=== PATIENT | female | born 1945 | race African-American/Black ===

== ENCOUNTER 2023-01-17 17:40 | Inpatient (IN) | payer OTHER ==
--- OUTSIDE RECORDS SUMMARY | 2023-01-17 18:01 | XMS REPORT | Continuity of Care Document ---
:1945 Author Organization [facility] t Address [address] [facility] [address] [place] [address] Care Team Providers Name Role Phone REY RASHEED Primary Care Physician Unavailable [id number] Attending Clinician Unavailable SYSTEM, PROVIDER NOT IN Attending Clinician Unavailable TWYLA SMITH Attending Clinician Unavailable CLARKE RENDON Attending Clinician Unavailable EDDIE GREGORIO Attending Clinician Unavailable HILL TAY Attending Clinician Unavailable JUNE VILLALBA Attending Clinician Unavailable MARCEL DAMIAN KEVIN Attending Clinician Unavailable LYNN WARD Attending Clinician Unavailable June Villalba MD Attending Clinician BERKLEY ARECHIGA Attending Clinician Unavailable KATTY OLIVEIRA Attending Clinician Unavailable LETTY GARNER Attending Clinician Unavailable ABDIAS MAHONEY Attending Clinician Unavailable MAZIN IQBAL Attending Clinician Unavailable BARRERA GARCIAS Attending Clinician Unavailable NANDO SCHROEDER Attending Clinician Unavailable LYNNETTE, LUZMARIA Attending Clinician Unavailable LEEANNE VENEGAS Attending Clinician Unavailable Lorena Timmons APRN Attending Clinician Van ENCARNACION, Silvia Attending Clinician Unavailable Shaikh DEMETRIA, Lester Attending Clinician Luisito AUGUSTIN, Matt Attending Clinician Sindi AUGUSTIN, Benitez Corona Attending Clinician [phone] Irish Araiza MD, Shailesh Attending Clinician Esmer AUGUSTIN, Ann Martinez Attending Clinician [phone] Roro Lambert RN Attending Clinician Unavailable Bobby AUGUSTIN, Marcel Ayers Attending Clinician Guerita AUGUSTIN, Sari Attending Clinician Dominick AUGUSTIN, Negin Sargent Attending Clinician Selam Putnam DO Attending Clinician Arturo Ladd Attending Clinician Stu AUGUSTIN, Maria Luisa Pyle Attending Clinician Jacquelyn [facility], Valentino Attending Clinician Unavailable Mimi AUGUSTIN, Fab Attending Clinician Severo AUGUSTIN, Marlen Attending Clinician [phone] Gbao Guzman MD, Khadra Attending Clinician [phone] Mirta Lomas MD Attending Clinician Jovi AUGUSTIN, Niko Hernandez Attending Clinician Clarissa Attending Clinician Unavailable SELAM ROPER Attending Clinician Unavailable JAKE SOLOMON Attending Clinician Unavailable HOLLY RHODES Attending Clinician Unavailable Shante AUGUSTIN, Rhean Frances Attending Clinician Maribeth Lopez MA Attending Clinician Unavailable MELODY LR Attending Clinician Unavailable Elias Castro MD Attending Clinician Sid Villanueva MD Attending Clinician MARAL MASON Attending Clinician Unavailable Isabella AUGUSTIN, Maral Attending Clinician Ariana Hankins Attending Clinician Unavailable ANKUR MCDANIEL Attending Clinician Unavailable MAHSA CHEEK Attending Clinician Unavailable MIKAELA POZO Attending Clinician Unavailable RAMAKRISHNA VELIZ Attending Clinician Unavailable SPRING ALVARADO Attending Clinician Unavailable Zoë AUGUSTIN, Fernanda Mendez Attending Clinician [phone] FERNANDA CAMP Attending Clinician Unavailable Harika Torres MD Attending Clinician Mateo Riley MD Attending Clinician Mayte Kumar MD Attending Clinician MAYTE KUMAR Attending Clinician Unavailable Hill Tay MD Attending Clinician Virtual, Surgeon Attending Clinician Unavailable Halle Roberts CRNA Attending Clinician [phone] Neymar Diaz RN Attending Clinician Unavailable NITO WRIGHT Attending Clinician Unavailable MATEO CENTENO Attending Clinician Unavailable Concha Attending Clinician Unavailable TODD RUSSELL Attending Clinician Unavailable KATHIE CORRIGAN Attending Clinician Unavailable BISHOP MOORE Attending Clinician Unavailable GEORGE LAM Attending Clinician Unavailable LIA MENCHACA Attending Clinician Unavailable RIVKA MARTINEZ Attending Clinician Unavailable DEREK MILLER Attending Clinician Unavailable MD LIA MENCHACA Attending Clinician Unavailable REY RASHEED Attending Clinician Unavailable SHEA MUJICA M.D. Attending Clinician Unavailable SELAM KUHN M.D. Attending Clinician Unavailable MARCO ANTONIO BROWNING M.D. Attending Clinician Unavailable MATEO CENTENO Attending Clinician Unavailable DAVID CLARK D.O. Attending Clinician Unavailable BRONSON MUNIZ M.D. Attending Clinician Unavailable ALONZO TURNER Attending Clinician Unavailable [id number] Admitting Clinician Unavailable CLARKE RENDON Admitting Clinician Unavailable HILL TAY Admitting Clinician Unavailable JUNE VILLALBA Admitting Clinician Unavailable MARCEL DAMIAN KEVIN Admitting Clinician Unavailable ALISON VARGAS Admitting Clinician Unavailable ELAINE EDWARD Admitting Clinician Unavailable BENITEZ HORVATH Admitting Clinician Unavailable MD MATT JORGE Admitting Clinician Unavailable ARTURO LADD Admitting Clinician Unavailable MD SARI DEXTER Admitting Clinician Unavailable SHAILESH ARAIZA Admitting Clinician Unavailable Clarissa Admitting Clinician Unavailable HOLLY RHODES Admitting Clinician Unavailable MARAL MASON Admitting Clinician Unavailable RAMAKRISHNA VELIZ Admitting Clinician Unavailable MAYTE KUMAR Admitting Clinician Unavailable Concha Admitting Clinician Unavailable BISHOP MOORE Admitting Clinician Unavailable LIA MENCHACA Admitting Clinician Unavailable MD LIA MENCHACA Admitting Clinician Unavailable MATEO CENTENO Admitting Clinician Unavailable ALONZO TURNER Admitting Clinician Unavailable Payers Payer Name Policy Type Policy Number Effective Date Expiration Date S ource [facility] [id number] [facility]IC[facility] [id number] 2020 ADVANTAGE 00:00:00 HUMANA CHOICE [id number] 2017 2020 MEDICARE PPO 00:00:00 00:00:00 MEDICARE PART B [id number] 2009 2017 00:00:00 00:00:00 AETNA [facility] [id number] 2010 2017 00:00:00 00:00:00 UNITED MEDICARE [id number] 2020 O 00:00:00 [facility] [id number] (MEDICARE REPLACEMENT/ADVANT AGE - PPO) MEDICARE PART B [id number] 2009 2010 00:00:00 00:00:00 AETNA O POS QPOS [id number] 2001 2017 00:00:00 00:00:00 Problems Condition Condition Condition Status Onset Resolution Last Treating Co mments Source Name Details Category Date Date Treatment Clinician Date Encephalop Encephalop Disease Active M ethodi athy acute athy acute 4-03 st 00:00: Hospita 00 l T84.092A T84.092A Diagnosis Active 2022-09-06 Memoria Active 09-02 13:19:00 l 09/02/2022 00:00: Manny ng [place] Localized Localized Disease Active 2021-06 Met hodi swelling, swelling, 0-25 st mass, or mass, or 00:00: Hospit a lump of lump of 00 l lower lower extremity, extremity, bilateral bilateral Cellulitis Cellulitis Disease Active 2021-06 M ethodi of right of right 0-24 st foot foot 00:00: Hospita 00 l Pulmonary Pulmonary Disease Active Met hodi embolism embolism 03-02 st 00:00: Hospita 00 l Weakness Weakness Disease Active Metho di 03-02 st 00:00: Hospita 00 l Congestive Congestive Disease Active M ethodi heart heart 9 st failure failure 00:00: Hospita (CHF) (CHF) 00 l Lung Lung Disease Active Methodi cancer cancer 03-02 st 00:00: Hospita 00 l Pulmonary Pulmonary Disease Active Met hodi embolism embolism 02-25 st on right on right 00:00: Hospit a 00 l RIGHT HIP RIGHT HIP Diagnosis Active 2021-12-21 Memoria PAIN PAIN 18 17:13:00 l Active 00:00: Samuel 12/21/2021 00 [facility] 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 08-25 [facility] Center Other Other Disease Active Methodi chronic chronic 3- st pain pain 00:00: Hospita 00 l Generalize Generalize Disease Active [facility] d pain d pain 06-14 [facility] 00 [place] Bronchogen Bronchogen Disease Recurre [facility] ic cancer ic cancer nce 1 [facility] of right of right 00:00: Medica l lung lung 00 Center M20.42 M20.42 Diagnosis Active 2020-062021-04-22 Me moria OTHER OTHER 04 05:48:00 l HAMMER HAMMER 00:00: Samuel TOE(S) TOE(S) 00 (ACQUIRED) (ACQUIRED) , L , L Active 04/09/2021 [facility] PT PT Active Diagnosis Active 2021-01-22 Memoria 08/04/202008-04 16:03:00 l [facility] 08:00: Samuel Rosales 00 Trace . 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 00:00: Hospita myelopathy myelopathy 00 l LUMBAR LUMBAR Diagnosis Active 2020-06-12 Me moria Active 06-06 10:22:00 l 06/06/2019 08:00: Manny ng [facility] [address] Vitamin D Vitamin D Disease Active 2017-06 Met hodi deficiency deficiency 06-14 st 00:00: Hospita 00 l Magnesium Magnesium Disease Active 2017-06 Met hodi deficiency deficiency 06-14 st 00:00: Hospita 00 l B12 B12 Disease Active 2017-06 Methodi deficiency deficiency 09 st 00:00: Hospita 00 l BILATERAL BILATERAL Diagnosis Active 2017-062021-05-06 Memoria LEG PAIN LEG PAIN 06-06 14:47:00 l Active 08:00: Samuel 04/06/2018 00 [facility] Acute Acute Disease Active 2017-06 Methodi bursitis bursitis 0-09 st of left of left 00:00: Hospita shoulder shoulder 00 l Prolonged Prolonged Disease Active 2017-06 Met hodi Q-T Q-T 0-08 st interval interval 00:00: Hospit a on ECG on ECG 00 l 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 11 st left left 00:00: Hospita shoulder shoulder 00 l due to due to rotator rotator cuff cuff injury injury Therapeuti Therapeuti Disease Active M ethodi c c 9-11 st opioid-ind opioid-ind 00:00: Ho spita uced uced 00 l constipati constipati on (OIC) on (OIC) CERVICAL CERVICAL Diagnosis Active 2018-02-20 Memoria FACET FACET 02-08 12:16:00 l SYNDROME SYNDROME 00:00: Manny ng Active 00 02/08/2018 [facility] Neuropathi Neuropathi Disease Active M ethodi c pain c pain 16 st 00:00: Hospita 00 l 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 00:00: Ho spita 00 l S/P total S/P total Disease Recurre Hi thodi knee knee nce [address] st replacemen replacemen 00:00: Ho spita t, right t, right 00 l 08/25/17 08/25/17 600 UNITS 600 UNITS Diagnosis Active 2017-12-26 Memoria Active 10-05 15:13:00 l 10/05/2017 00:00: Manny CHATMAN [facility] 00 BOTOX INJ BOTOX INJ Diagnosis Active 2016-062017-10-05 Memoria Active 07-12 09:16:00 l 05/11/2017 00:00: Manny CHATMAN [facility] 00 Trifacial Trifacial Disease Active 2016-[address] neuralgia neuralgia 0-31 [facility] Center 40MG 40MG Diagnosis Active 2016-062017-03-10 Mem oria Active 16:07:00 l 03/08/2017 00:00: Manny CHATMAN [facility] 00 500 UNITS 500 UNITS Diagnosis Active 2017-05-11 Memoria Active 02-09 10:14:00 l 02/09/2017 00:00: Manny CHATMAN [facility] 00 2 MONTH 2 MONTH Diagnosis Active 2017-05-21 Memoria F/U F/U Active 02-09 16:11:00 l 00:00: Manny Ellis [facility] 00 3 WEEK F/U 3 WEEK Diagnosis Active 2017-01-26 Memoria F/U Active 01-05 16:29:00 l 01/05/2017 00:00: Manny ng [facility] 00 PAIN / PER PAIN / Diagnosis Active 2017-01-05 Memoria EMAIL FROM PER EMAIL 12-30 11:40:00 l DAVID FROM DAVID 00:00: Manny ng Active 00 12/30/2016 MH [facility] 4 WEEK F/U 4 WEEK Diagnosis Active 2017-02-14 Memoria F/U Active 12-30 16:19:00 l 00:00: Manny ng 7 [facility] 00 6 WEEKS FU 6 WEEKS Diagnosis Active 2016-12-15 Memoria FU Active 11-19 16:11:00 l 11/19/2016 00:00: Manny ng [facility] 00 400 UNITS 400 UNITS Diagnosis Active 2017-02-09 Memoria Active 10-28 10:29:00 l 10/28/2016 00:00: Manny ng [facility] 00 2 WEEK F.U 2 WEEK Diagnosis Active 2016-11-10 Memoria F.U Active 10-23 09:17:00 l 10/23/2016 00:00: Manny ng [facility] 00 10ML 10ML Diagnosis Active 2016-10-20 Mem oria Active 10-18 16:20:00 l 10/18/2016 00:00: Manny ng [facility] 00 2 MONTHS 2 MONTHS Diagnosis Active 2016-09-15 Memoria Active 07-29 13:55:00 l 07/29/2016 00:00: Manny ng [facility] 00 F/U F/U Diagnosis Active 2016-07-29 Mem oria Active 07-01 14:33:00 l 07/01/2016 00:00: Manny ng [facility] 00 EVAL EVAL Diagnosis Active 2016-04-03 Mem oria Active 02-25 16:30:00 l 02/26/2016 00:00: Manny ng [facility] 00 200 UNITS 200 UNITS Diagnosis Active 2016-03-03 Memoria Active 12-02 13:09:00 l 12/03/2015 00:00: Manny ng [facility] 00 NEW PT NEW PT Diagnosis Active 2015-10-05 Me irma DAVIS 08-26 16:36:00 l Active 00:00: Samuel 08/27/2015 00 [facility] Atrophic Atrophic Disease Active Metho di vaginitis vaginitis 08-08 00:00: Hospita 00 l History of History of Disease Active M ethodi malignant malignant 08-08 neoplasm neoplasm 00:00: Hospit a of breast of breast 00 l History of History of Disease Active M ethodi ovarian ovarian 08-08 cancer cancer 00:00: Hospita 00 l Chronic Chronic Disease Active Methodi pain of pain of 08-08 right knee right knee 00:00: Ho spita 00 l MS MS Disease Active Overview: Method i (multiple (multiple 08-08 Formattin s t sclerosis) sclerosis) 00:00: g of this Hospita 00 note l might be different from the original. 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 08-08 disorders, disorders, 00:00: Ho spita non-rheuma non-rheuma 00 l tic tic Urge Urge Disease Active Methodi incontinen incontinen 08-08 ce of ce of 00:00: Hospita urine urine 00 l Allergic Allergic Disease Active Metho di rhinitis rhinitis 08-08 00:00: Hospita 00 l 300 UNITS 300 UNITS Diagnosis Active 2015-09-21 Memoria Active 06-17 16:26:00 l 06/17/2015 00:00: Manny ng [facility] 00 BOTOX/NO BOTOX/NO Diagnosis Active 2014-11-06 Memoria ORDER ORDER 08-07 14:24:00 l WRITTEN WRITTEN 00:00: Samuel Active 00 08/07/2014 [facility] BOTOX BOTOX Diagnosis Active 2013-062014-09-19 Mem oria Active 07-10 20:22:00 l 05/09/2014 00:00: Manny ng [facility] 00 STRENGTH STRENGTH Diagnosis Active 2016-12-28 Memoria UNLIMTED UNLIMTED 06-06 16:08:00 l Active 08:00: [place] 06/06/2009 00 MH [facility] EVAL FOR EVAL FOR Diagnosis Active 2016-08-12 Memoria THERAPY THERAPY 02-17 02:17:00 l NEEDS- MS NEEDS- MS 01:01: Alva granados W FOOT W FOOT 00 DROP DROP Active 02/17/2006 MH [facility] MS MS Active Diagnosis Active 2013-08-03 Memoria 06-06 09:55:00 l 1 MH [facility] 23:59: [place] 00 MULTIPLE MULTIPLE Diagnosis Active 2012-07-18 Memoria SCLEROSIS SCLEROSIS 06-06 15:22:00 l Active 23:59: Samuel 06/06/2000 00 MH [facility] STRENGTH STRENGTH Diagnosis Active 2018-05-02 Memoria UNLIMITED UNLIMITED 06-06 11:06:00 l Active 08:00: Samuel 06/06/2000 00 MH [facility] Primary Primary Problem Active [place] osteoarthr osteoarthr Ph ysici itis of itis of ans right knee right knee History of History of Problem Resolve [place] Arthritis Arthritis d Phys ici ans History of History of Problem Resolve [place] Cancer Cancer d Physici ans Pain due Pain due Problem Active [place] to total to total Physic i right knee right knee an s replacemen replacemen t, initial t, initial encounter encounter Foot Foot Problem Active 2021-12-24 Memor ia swelling swelling 00:08:07 l (finding) (finding) Alva turner Active Problem 12/24/2021 [facility], [facility], CLAUDE Cerrato,[facility] History of History Problem Active 2021-12-24 Memoria - of - 00:08:07 l artificial artificial He rmann joint joint (context-d (context-d ependent ependent category) category) Active Problem 12/24/2021 [facility], CLAUDE Cerrato,[facility] Hammer toe Hammer Problem Active 2021-12-24 Memoria (disorder) toe 00:08:07 l (disorder) Manny n Active Problem 12/24/2021 [facility] Shoulder Shoulder Problem Active 2021-12-24 Memoria pain pain 00:08:07 l (finding) (finding) Herm turner Active Problem 12/24/2021 [facility], SMR Bobby Trace,[facility] Spasm Spasm Problem Active 2021-12-24 Memor ia (finding) (finding) 00:08:07 l Active Samuel Problem 12/24/2021 [facility],MH [facility],MH SMR Bobby Trace,[facility] Spasticity Spasticit Problem Active 2021-12-24 Memoria (finding) y 00:08:07 l (finding) [place] Active Problem 12/24/2021 [facility], SMR Bobby Trace,[facility] Swelling Swelling Problem Active 2021-12-24 Memoria of lower of lower 00:08:07 l limb limb [place] (finding) (finding) Active Problem 12/24/2021 [facility], SMR Bobby Trace,[facility] Tachycardi Tachycard Problem Active 2021-12-24 Memoria a ia 00:08:07 l (finding) (finding) Herm turner Active Problem 12/24/2021 [facility] MS - MS - Problem Active 2013-01-12 Memor ia Multiple Multiple 20:36:14 l sclerosis sclerosis Herm turner Active Problem 01/12/2013 [facility] Sclerosis Problem Active 2016-03-21 Me moria (morpholog Sclerosis 00:40:21 l ic (morpholog Manny n abnormalit ic y) abnormalit y) Active Problem 03/21/2016 multiple sclerosis [facility] [place] CHRONIC CHRONIC Diagnosis Active 2014-09-03 Memoria PAIN NEC PAIN NEC 11:03:00 l Active Samuel [facility] MULTIPLE MULTIPLE Diagnosis Active 2012-10-16 Memoria SCLEROSIS SCLEROSIS 19:11:00 l Active Manny n [facility] SPASM OF SPASM OF Diagnosis Active 2015-02-05 Memoria MUSCLE MUSCLE 14:37:00 l Active Samuel [facility] ABN ABN Diagnosis Active 2015-02-05 Mem oria INVOLUN INVOLUN 14:37:00 l MOVEMENT MOVEMENT Manny n NEC NEC Active [facility] NECK / NECK / Diagnosis Active 2014-03-07 Me moria SHOULDER SHOULDER 07:07:00 l PAIN PAIN [place] Active [facility] [place] OTHER OTHER Diagnosis Active 2017-05-21 Mem oria MUSCLE MUSCLE 16:11:00 l SPASM SPASM Samuel Active [facility] OTHER OTHER Diagnosis Active 2017-02-09 Mem oria ABNORMAL ABNORMAL 10:29:00 l INVOLUNTAR INVOLUNTAR He rmann Y Y MOVEMENTS MOVEMENTS Active MH [facility] ENCNTR FOR ENCNTR Diagnosis Active 2015-06-17 Memoria F/U EXAM FOR F/U 14:57:00 l AFT TRTMT EXAM AFT Jodi nn FOR COND O TRTMT FOR COND O Active MH [facility] CRAMP AND CRAMP AND Diagnosis Active 2016-10-28 Memoria SPASM SPASM 14:52:00 l Active MH Manny n [facility] OTHER OTHER Diagnosis Active 2017-02-14 Mem oria CHRONIC CHRONIC 16:19:00 l PAIN PAIN [place] Active [facility] Pain in Pain in Problem 2017-03-13 Me moria left left 03:34:46 l shoulder shoulder Manny n 03/13/2017 MH [facility] Other Other Problem 2017-10-14 Memor ia muscle muscle 16:10:39 l spasm spasm [place] 10/14/2017 MH [facility] Multiple Multiple Problem 2017-10-14 Memoria sclerosis sclerosis 16:10:39 l 10/14/2017 Manny n MH [facility] Body mass Body Problem 2017-10-14 Me moria index mass index 16:10:39 l (BMI) (BMI) Samuel 21.0-21.9, 21.0-21.9, adult adult 10/14/2017 MH [facility] Presence Presence Problem 2017-10-14 Memoria of right of right 16:10:39 l artificial artificial He rmann knee joint knee joint 8 MH [facility] Cancer Cancer Problem Resolve 2013-01-12 Mem oria Resolved d 20:36:14 l Problem [place] 01/12/2013 <sup>1</s up>Breast, ovarian MH [facility] Sclerosis Sclerosis Problem Resolve 2013-01-12 Memoria Resolved d 20:36:14 l Problem Samuel 01/12/2013 <sup>2</alvarado p>multiple sclerosis MH [facility] Weakness - Weakness Problem Resolve 2013-01-12 Memoria general - general d 20:36:14 l Resolved [place] Problem 01/12/2013 MH [facility] Malignant Malignant Problem Resolve 2016-03-21 Memoria neoplasm, neoplasm, d 00:40:21 l primary primary [place] (morpholog (morpholog ic ic abnormalit abnormalit y) y) Resolved Problem 03/21/2016 Breast,ova liam MH [facility],MH SMR [place] Bilateral Bilateral Disease Active Met hodi lumbar lumbar st radiculopa radiculopa Ho spita thy thy l 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 athy athy Malignant Malignant Problem Resolve 2021-12-24 2021-12-24 Memoria tumor of tumor of d - 00:08:07 00:08:07 l ovary ovary 00:00: Samuel (disorder) (disorder) 00 Resolved 06/06/2007 Problem 12/24/2021 [facility], [facility] Bobby Trace,[facility] Malignant Malignant Problem Resolve 2021-12-24 2021-12-24 Memoria tumor of tumor of d 06-06 00:08:07 00:08:07 l breast breast 00:00: Samuel (disorder) (disorder) 00 Resolved 06/06/2006 Problem 12/24/2021 left [facility], [facility] Bobby Trace,[facility] History of Past Illness Condition Condition Condition Status Onset Resolution Last Treating Co mments Source Name Details Category Date Date Treatment Clinician Date Persons Persons Problem 2017-062018-11-19 2018-11-19 Memoria encounteri encounteri 07-05 12:54:53 12:54:53 l [facility] 09:28: Herm turner services services 12 in other in other specified specified circumstan circumstan vlad vlad 05/05/2018 11/19/2018 MH [facility] Other Other Problem 2017-062018-09-09 2018-09-09 M emoria specified specified 07-05 12:07:21 12:07:21 l dorsopathi dorsopathi 04:51: He rmann es, es, 18 cervical cervical region region 05/05/2018 09/09/2018 [facility] Other Other Problem 2017-10-14 2017-10-14 Memoria abnormalit abnormalit 10-09 16:10:39 16:10:39 l ies of ies of 03:18: Samuel gait and gait and 43 mobility mobility 10/09/2017 10/14/2017 MH [facility] Allergies, Adverse Reactions, Alerts Allergy Allergy Status Severity Reaction(s) Onset Inactive Treating Comm ents Source Name Type Date Date Clinician No Known Propensi Active Method i Drug ty to 3-05 st Allergie adverse 00:00: Hospita s reaction 00 l s to drug No Known No Known Active Memori a Medicati Medicati l on on Samuel Allergie Allergie s s NO KNOWN Allergy Active [facility]SL ALLERGIE S Family History Family Member Diagnosis Comments Start Date Stop Date Source Natural brother Kidney disease [facility] Natural brother Learning disabilities [facility] father Arthritis [facility] Natural father Heart disease [facility] Natural father Kidney disease [facility] mother Arthritis [facility] mother Kidney disease [facility] sister Kidney disease Method [facility] Social History Social Habit Start Date Stop Date Quantity Comments Source Gender identity [facility] Sexual orientation [facility] History of Social 2022-10-24 2022-10-[address] function 00:00:00 00:00:00 Hospital Cigarettes smoked 2022-08-06 2022-08-[address] current (pack per 00:00:00 00:00:00 Hospita l day) - Reported Cigarette 2022-08-06 2022-08-06 [facility] pack-years 00:00:00 00:00:00 Hospital Tobacco use and 2022-08-06 2022-08-06 Smokeless [employer] exposure 00:00:00 00:00:00 tobacco non-user Hospital Alcohol intake 2021-08-26 2021-08-[address] [facility] 00:[facility]:00 00:00:00 non-drinker of Medical nter alcohol (finding) Social History 2016-09-15 2016-09-15 [facility] 18:53:46 18:53:46 History of tobacco 1988-06-12 Current smoker [facility] use 00:00:00 Hospital Sex Ass[birth year] At [birth year] CAYDEN Marquez kes 00:00:00 [facility]:00 [facility] Smoking Status Start Date Stop Date Source Never smoked tobacco [facility] (finding) Ex-smoker 2022-08-06 00:00:00 2022-08-06 00:00:00 [facility] Medications Ordered Filled Start Stop Current Ordering Indication Dosage Frequency Signature Comments Components Source Medication Medication Date Date Medication? Clinician (SIG) Name Name multivitami Yes 1{tbl} QD Take 1 Me thodi n 5-[address] (THERAGRAN) 17:54: mouth Hospi ta tablet 38 daily. l polyethylen Yes 17g Q24H Take 17 g M ethodi e glycol 5-[address] (MIRALAX) 17:54: daily as Hosp vlad 17 gram 38 needed for l packet constipati on. cholecalcif Yes 5000U QD Take 1 [facility] donna, 5-[address] vitamin D3, 17:54: (5,000 [facility] 125 mcg 38 Units l (5,000 total) by unit) mouth tablet daily. gabapentin Yes 200mg Q.[id number] Take 2 [facility] (NEURONTIN) 5-[id number] 100 mg 17:54: 3D (200 mg [facility]osp[facility] capsule 38 total) by l mouth 3 (three) times a day. carBAMazepi 2022- No 100mg Q.5D Take 1 [facility] ne XR 09-09- tablet st (TEGretol 13:32: 00:00 (100 mg [facility] XR) 100 MG 28 :00 total) by l 12 hr mouth 2 tablet (two) times a day as needed (trigemina l neuralgia) . carBAMazepi 0 2022- No 100mg Q.5D Chew 1 [facility] ne 09-09-[address] (TEGretol) 00:00: 04:59 (100 mg [facility] 100 mg 00 :00 total) 2 l chewable (two) tablet times a day as needed (trigemina l neuralgia pain) for up to 30 days. doxycycline 2022- No 50mg Q.5D Take 1 [facility] (VIBRAMYCIN 09-09-[address] ) 50 MG 00:00: 04:59 (50 mg [facility]osp[facility] capsule 00 :00 total) by l mouth 2 (two) times a day for 3 days. protein 2022-0 2022- No Q.[id number] Take by [facility] powder 09-07- [id number] mouth [address] st 09:21: 00:00 3W (three) [facility]osp[facility] 41 :00 times a l week. traMADoL Yes [id number] 100mg Q8H Take 2 [facility] (ULTRAM) 50 3-[address] mg tablet 00:00: (100 mg [facility] 00 total) by l mouth every 8 (eight) hours .chronic pain. DULoxetine 2022- No [id number] 30mg Q.5D Take 1 [facility] (Cymbalta) 08-10-[address] 30 MG 00:00: 00:00 (30 mg [facility] capsule 00 :00 total) by l mouth 2 (two) times a day. oxyCODone 2022- No [id number] 10mg Q4H Take 1 [facility] (ROXICODONE 08-10- tablet (10 s t ) 10 MG 00:00: 00:00 mg total) [facility] tablet 00 :00 by mouth l every 4 (four) hours as needed for moderate pain .acute pain. Max Daily Amount: 60 mg fluocinonid 2023- No [id number] Q.5D Apply [facility] (LIDEX) 08-06-[address] 0.05 % 00:00: 05:59 2 (two) [facility]osp[facility] external 00 :00 times a l solution day. Eliquis 5 Yes 5mg Q.5D Take 1 [facility] mg tablet 3-01 tablet (5 st 00:00: mg total) [facility]osp[facility] 00 by mouth 2 l (two) times a day. Entresto Yes 1{tbl} Q.5D Take 1 [facility] 24-26 mg 2-[address] tablet per 00:00: mouth 2 [facility] tablet 00 (two) l times a day. metoprolol 2022- No 25mg Q.5D Take 1 [facility] succinate 2- 04-06 tablet (25 st XL 00:00: 00:00 mg total) [facility]osp[facility] (TOPROL-XL) 00 :00 by mouth 2 l 25 mg 24 hr (two) tablet times a day. venlafaxine 2021-06- No 37.5mg QD Take 1 [facility] XR (Effexor 07-14 12-[address] XR) 37.5 MG 00:00: 05:59 (37.5 mg [facility] 24 hr 00 :00 total) by l capsule mouth daily. gabapentin 2021-06- No [id number] Take two [facility] (NEURONTIN) 2 04-[address] 100 mg 00:00: 00:00 [facility]osp[facility] capsule 00 :00 l traMADoL 2021-06- No [id number] 100mg Q8H Take 2 [facility] (ULTRAM) 50 2- 03-[address] mg tablet 00:00: 00:00 (100 mg [facility] 00 :00 total) by l mouth every 8 (eight) hours .chronic pain. lubiproston 2021-06- No 24ug Q.5D Take 1 [facility] e (Amitiza) 07-14-[address] 24 MCG 00:00: 05:59 (24 mcg [facility]osp[facility] capsule 00 :00 total) by l mouth 2 (two) times a day with meals for 30 days. traMADoL 2021-06 Yes [id number] 100mg Q8H Take 2 [facility] (ULTRAM) 50 1-[address] mg tablet 00:00: (100 mg [facility] 00 total) by l mouth every 8 (eight) hours .chronic pain. traMADoL 2021-06 Yes [id number] 100mg Q8H Take 2 [facility] (ULTRAM) 50 1-[address] mg tablet 00:00: (100 mg [facility] 00 total) by l mouth every 8 (eight) hours .chronic pain. traMADoL 2021-06- No [id number] 100mg Q8H Take 2 [facility] (ULTRAM) 50 1-10 12-[address] mg tablet 00:00: 00:00 (100 mg [facility] 00 :00 total) by l mouth every 8 (eight) hours .chronic pain. cholecalcif 2021-06 Yes 5000U QD Take 1 [facility]na, 0-[address] vitamin D3, 18:02: (5,000 [facility] 125 mcg 32 Units l (5,000 total) by unit) mouth tablet daily. cholecalcif 2021-06 Yes 5000U QD Take 1 [facility], 0-[address] vitamin D3, 18:02: (5,000 [facility] 125 mcg 32 Units l (5,000 total) by unit) mouth tablet daily. cholecalcif 2022-1 Yes 5000U QD Take 1 [facility]na, 0-[address] vitamin D3, 18:02: (5,000 [facility] 125 mcg 32 Units l (5,000 total) by unit) mouth tablet daily. cholecalcif 2021-06 Yes 5000U QD Take 1 [facility], 0-[address] vitamin D3, 18:02: (5,000 [facility] 125 mcg 32 Units l (5,000 total) by unit) mouth tablet daily. protein 2021-06 Yes Q.[id number] Take by [facility] powder 0-[id number] 18:02: 3W (three) [facility] 31 times a l week. multivitami 2021-06 Yes 1{tbl} QD Take 1 [facility] n 0-[address] (THERAGRAN) 18:02: mouth [facility] tablet 31 daily. l carBAMazepi 2021-06 Yes 100mg Q.5D Take 100 [facility] ne XR 0-[address] (TEGretol 18:02: mouth 2 [facility] XR) 100 MG 31 (two) l 12 hr times a tablet day as needed. polyethylen 2021-06 Yes 17g Q24H Take 17 g [facility] e glycol 0-[address] (MIRALAX) 18:02: daily as [facility] 17 gram 31 needed. l packet protein 2021-06 Yes Q.[id number] Take by [facility] powder 0-[id number] 18:02: 3W (three) [facility] 31 times a l week. multivitami 2021-06 Yes 1{tbl} QD Take 1 [facility] 0-[address] (THERAGRAN) 18:02: mouth [facility] tablet 31 daily. l carBAMazepi 2021-06 Yes 100mg Q.5D Take 100 [facility] ne XR 0-[address] (TEGretol 18:02: mouth 2 [facility] XR) 100 MG 31 (two) l 12 hr times a tablet day as needed. polyethylen 2021-06 Yes 17g Q24H Take 17 g [facility] e glycol 0-[address] (MIRALAX) 18:02: daily as [facility] 17 gram 31 needed. l packet protein 2022-1 Yes Q.[id number] Take by [facility] powder 0-[id number] 18:02: 3W (three) [facility] 31 times a l week. multivitami 2021-06 Yes 1{tbl} QD Take 1 [facility] n 0-[address] (THERAGRAN) 18:02: mouth [facility] tablet 31 daily. l carBAMazepi 2021-06 Yes 100mg Q.5D Take 100 [facility] ne XR 0-[address] (TEGretol 18:02: mouth 2 [facility] XR) 100 MG 31 (two) l 12 hr times a tablet day as needed. polyethylen 2021-06 Yes 17g Q24H Take 17 g [facility] e glycol 0-[address] (MIRALAX) 18:02: daily as [facility] 17 gram 31 needed. l packet protein 2021-06 Yes Q.[id number] Take by [facility] powder 0-[id number] 18:02: 3W (three) [facility] 31 times a l week. multivitami 2021-06 Yes 1{tbl} QD Take 1 [facility] n 0-[address] (THERAGRAN) 18:02: mouth [facility] tablet 31 daily. l carBAMazepi 2021-06 Yes 100mg Q.5D Take 100 [facility] ne XR 0-[address] (TEGretol 18:02: mouth 2 [facility] XR) 100 MG 31 (two) l 12 hr times a tablet day as needed. polyethylen 2021-06 Yes 17g Q24H Take 17 g [facility] e glycol 0-[address] (MIRALAX) 18:02: daily as [facility] 17 gram 31 needed. l packet spironolact 2021-06 No 12.5mg QD Take 0.5 [facility] one 0-27 10-[address] (ALDACTONE) 00:00: 00:00 (12.5 mg [facility] 25 MG 00 :00 total) by l tablet mouth daily for 30 days. spironolact 2021-06 No 12.5mg QD Take 0.5 [facility] one 0-27 10-[address] (ALDACTONE) 00:00: 00:00 (12.5 mg [facility] 25 MG 00 :00 total) by l tablet mouth daily for 30 days. spironolact 2021-06- No 12.5mg QD Take 0.5 [facility] one 0-27 10-[address] (ALDACTONE) 00:00: 00:00 (12.5 mg [facility] 25 MG 00 :00 total) by l tablet mouth daily for 30 days. spironolact 2021-06- No 12.5mg QD Take 0.5 [facility] one 0-27 10-[address] (ALDACTONE) 00:00: 00:00 (12.5 mg [facility] 25 MG 00 :00 total) by l tablet mouth daily for 30 days. spironolact 2021-06 No 12.5mg QD Take 0.5 [facility] one 0-27 10-[address] (ALDACTONE) 00:00: 00:00 (12.5 mg [facility] 25 MG 00 :00 total) by l tablet mouth daily for 30 days. protein 2021-06 Yes Q.[id number] Take by [facility] powder 0-[id number] 22:48: 3W (three) [facility] 12 times a l week. multivitami 2021-06 Yes 1{tbl} QD Take 1 [facility] n 0-[address] (THERAGRAN) 22:48: mouth [facility] tablet 12 daily. l carBAMazepi 2021-06 Yes 100mg Q.5D Take 100 [facility] ne XR 0-[address] (TEGretol 22:48: mouth 2 [facility] XR) 100 MG 12 (two) l 12 hr times a tablet day as needed. polyethylen 2021-06 Yes 17g Q24H Take 17 g [facility] e glycol 0-[address] (MIRALAX) 22:48: daily as [facility] 17 gram 12 needed. l packet cholecalcif 2021-06 Yes 5000U QD Take 1 [facility], 0-[address] vitamin D3, 22:48: (5,000 [facility] 125 mcg 12 Units l (5,000 total) by unit) mouth tablet daily. furosemide 2021-06 Yes 40mg QD Take 1 [facility] (LASIX) 40 0-05 tablet (40 st mg tablet 00:00: mg total) [facility] 00 by mouth l daily. pantoprazol 2021-06 Yes 40mg QD Take 1 [facility] e 0-05 tablet (40 st (PROTONIX) 00:00: mg total) [facility] 40 MG EC 00 by mouth l tablet daily. furosemide 2021-06 Yes 40mg QD Take 1 [facility] (LASIX) 40 0-05 tablet (40 st mg tablet 00:00: mg total) [facility] 00 by mouth l daily. pantoprazol 2021-06 Yes 40mg QD Take 1 [facility] e 0-05 tablet (40 st (PROTONIX) 00:00: mg total) [facility] 40 MG EC 00 by mouth l tablet daily. furosemide 2021-06 Yes 40mg QD Take 1 [facility] (LASIX) 40 0-05 tablet (40 st mg tablet 00:00: mg total) [facility] 00 by mouth l daily. pantoprazol 2021-06 Yes 40mg QD Take 1 [facility] e 0-05 tablet (40 st (PROTONIX) 00:00: mg total) [facility] 40 MG EC 00 by mouth l tablet daily. furosemide 2021-06 Yes 40mg QD Take 1 [facility] (LASIX) 40 0-05 tablet (40 st mg tablet 00:00: mg total) [facility] 00 by mouth l daily. pantoprazol 2021-06 Yes 40mg QD Take 1 [facility] e 0-05 tablet (40 st (PROTONIX) 00:00: mg total) [facility] 40 MG EC 00 by mouth l tablet daily. furosemide 2021-06 Yes 40mg QD Take 1 [facility] (LASIX) 40 0-05 tablet (40 st mg tablet 00:00: mg total) [facility] 00 by mouth l daily. pantoprazol 2021-06 Yes 40mg QD Take 1 [facility] e 0-05 tablet (40 st (PROTONIX) 00:00: mg total) [facility] 40 MG EC 00 by mouth l tablet daily. furosemide 2021-06 Yes 40mg QD Take 1 [facility] (LASIX) 40 0-05 tablet (40 st mg tablet 00:00: mg total) [facility] 00 by mouth l daily. pantoprazol 2021-06 Yes 40mg QD Take 1 [facility] e 0-05 tablet (40 st (PROTONIX) 00:00: mg total) [facility] 40 MG EC 00 by mouth l tablet daily. furosemide 2021-06 Yes 40mg QD Take 1 [facility] (LASIX) 40 0-05 tablet (40 st mg tablet 00:00: mg total) [facility] 00 by mouth l daily. pantoprazol 2021-06 Yes 40mg QD Take 1 [facility] e 0-05 tablet (40 st (PROTONIX) 00:00: mg total) [facility] 40 MG EC 00 by mouth l tablet daily. furosemide 2021-06 Yes 40mg QD Take 1 [facility] (LASIX) 40 0-05 tablet (40 st mg tablet 00:00: mg total) [facility] 00 by mouth l daily. pantoprazol 2021-06 Yes 40mg QD Take 1 [facility] e 0-05 tablet (40 st (PROTONIX) 00:00: mg total) [facility] 40 MG EC 00 by mouth l tablet daily. furosemide 2021-06 No 40mg QD Take 1 [facility] (LASIX) 40 0-05 04-04 tablet (40 st mg tablet 00:00: 00:00 mg total) [facility] 00 :00 by mouth l daily. pantoprazol 2021-06 No 40mg QD Take 1 [facility] e 0-05 04-04 tablet (40 st (PROTONIX) 00:00: 00:00 mg total) [facility] 40 MG EC 00 :00 by mouth l tablet daily. cholecalcif 2021-06 Yes 5000U QD Take 1 [facility], 0-[address] vitamin D3, 18:55: (5,000 [facility] (Vitamin 02 Units l D3) 125 mcg total) by (5,000 mouth unit) daily. tablet cholecalcif 2021-06 Yes 5000U QD Take 1 [facility], 0-[address] vitamin D3, 18:55: (5,000 [facility] (Vitamin 02 Units l D3) 125 mcg total) by (5,000 mouth unit) daily. tablet cholecalcif 2021-06 Yes 5000U QD Take 1 [facility] don[facility], 0-[address] vitamin D3, 18:55: (5,000 [facility] (Vitamin 02 Units l D3) 125 mcg total) by (5,000 mouth unit) daily. tablet apixaban 2021-06- No 5mg Q.5D Take 1 [facility] (ELIQUIS) 5 0-06 14-30 tablet (5 st mg tablet 18:55: 00:00 mg total) [facility] 02 :00 by mouth 2 l (two) times a day. osimertinib 2021-06- No 80mg QD Take 1 [facility] (TAGRISSO) 0-06 14-30 tablet (80 st 80 mg chemo 18:55: 00:00 mg total) [facility]osp[facility] tablet 02 :00 by mouth l daily. apixaban 2021-06 No 5mg Q.5D Take 1 [facility] (ELIQUIS) 5 0-06 14-30 tablet (5 st mg tablet 18:55: 00:00 mg total) [facility] 02 :00 by mouth 2 l (two) times a day. osimertinib 2021-06 No 80mg QD Take 1 [facility] (TAGRISSO) 0-06 14-30 tablet (80 st 80 mg chemo 18:55: 00:00 mg total) [facility]osp[facility] tablet 02 :00 by mouth l daily. apixaban 2021-06 No 5mg Q.5D Take 1 [facility] (ELIQUIS) 5 0-06 14-30 tablet (5 st mg tablet 18:55: 00:00 mg total) [facility] 02 :00 by mouth 2 l (two) times a day. osimertinib 2021-06 No 80mg QD Take 1 [facility] (TAGRISSO) 0-06 14-30 tablet (80 st 80 mg chemo 18:55: 00:00 mg total) [facility] tablet 02 :00 by mouth l daily. apixaban 2021-06- No 5mg Q.5D Take 1 [facility] (ELIQUIS) 5 0- 09-30 tablet (5 st mg tablet 18:55: 00:00 mg total) [facility] 02 :00 by mouth 2 l (two) times a day. osimertinib 2021-06- No 80mg QD Take 1 [facility] (TAGRISSO) 0- 09-30 tablet (80 st 80 mg chemo 18:55: 00:00 mg total) [facility] tablet 02 :00 by mouth l daily. apixaban 2022-1 2022- No 5mg Q.5D Take 1 [facility] (ELIQUIS) 5 0-06 14-30 tablet (5 st mg tablet 18:55: 00:00 mg total) [facility] 02 :00 by mouth 2 l (two) times a day. osimertinib 2021-06- No 80mg QD Take 1 [facility] (TAGRISSO) 0-06 14-30 tablet (80 st 80 mg chemo 18:55: 00:00 mg total) [facility] tablet 02 :00 by mouth l daily. apixaban 2021-06- No 5mg Q.5D Take 1 [facility] (ELIQUIS) 5 0-06 14-30 tablet (5 st mg tablet 18:55: 00:00 mg total) [facility] 02 :00 by mouth 2 l (two) times a day. osimertinib 2021-06- No 80mg QD Take 1 [facility] (TAGRISSO) 0-06 14-30 tablet (80 st 80 mg chemo 18:55: 00:00 mg total) [facility] tablet 02 :00 by mouth l daily. apixaban 2021-06- No 5mg Q.5D Take 1 [facility] (ELIQUIS) 5 0-06 14-30 tablet (5 st mg tablet 18:55: 00:00 mg total) [facility] 02 :00 by mouth 2 l (two) times a day. osimertinib 2021-06- No 80mg QD Take 1 [facility] (TAGRISSO) 0-06 14-30 tablet (80 st 80 mg chemo 18:55: 00:00 mg total) [facility] tablet 02 :00 by mouth l daily. apixaban 2021-06- No 5mg Q.5D Take 1 [facility] (ELIQUIS) 5 0-06 14-30 tablet (5 st mg tablet 18:55: 00:00 mg total) [facility] 02 :00 by mouth 2 l (two) times a day. osimertinib 2021-06- No 80mg QD Take 1 [facility] (TAGRISSO) 0-06 14-30 tablet (80 st 80 mg chemo 18:55: 00:00 mg total) [facility] tablet 02 :00 by mouth l daily. apixaban 2021-06- No 5mg Q.5D Take 1 [facility] (ELIQUIS) 5 0-06 14-30 tablet (5 st mg tablet 18:55: 00:00 mg total) [facility] 02 :00 by mouth 2 l (two) times a day. osimertinib 2021-06- No 80mg QD Take 1 [facility] (TAGRISSO) 0-06 14-30 tablet (80 st 80 mg chemo 18:55: 00:00 mg total) [facility] tablet 02 :00 by mouth l daily. pantoprazol 2021-06 No 40mg QD Take 1 [facility] e 0-01 10-05 tablet (40 st (PROTONIX) 00:00: 00:00 mg total) [facility] 40 MG EC 00 :00 by mouth l tablet daily for 30 days. pantoprazol 2021-06- No 40mg QD Take 1 [facility] e 0-01 10-05 tablet (40 st (PROTONIX) 00:00: 00:00 mg total) [facility] 40 MG EC 00 :00 by mouth l tablet daily for 30 days. pantoprazol 2021-06 No 40mg QD Take 1 [facility] e 0-01 10-05 tablet (40 st (PROTONIX) 00:00: 00:00 mg total) [facility] 40 MG EC 00 :00 by mouth l tablet daily for 30 days. pantoprazol 2021-06- No 40mg QD Take 1 [facility] e 0-01 10-05 tablet (40 st (PROTONIX) 00:00: 00:00 mg total) [facility] 40 MG EC 00 :00 by mouth l tablet daily for 30 days. pantoprazol 2021-06- No 40mg QD Take 1 [facility] e 0-01 10-05 tablet (40 st (PROTONIX) 00:00: 00:00 mg total) [facility] 40 MG EC 00 :00 by mouth l tablet daily for 30 days. pantoprazol 2021-06- No 40mg QD Take 1 [facility] e 0-01 10-05 tablet (40 st (PROTONIX) 00:00: 00:00 mg total) [facility] 40 MG EC 00 :00 by mouth l tablet daily for 30 days. pantoprazol 2022-1 2022- No 40mg QD Take 1 [facility] e 0-01 10-05 tablet (40 st (PROTONIX) 00:00: 00:00 mg total) [facility] 40 MG EC 00 :00 by mouth l tablet daily for 30 days. pantoprazol 2021-06- No 40mg QD Take 1 [facility] e 0-01 10-05 tablet (40 st (PROTONIX) 00:00: 00:00 mg total) [facility] 40 MG EC 00 :00 by mouth l tablet daily for 30 days. pantoprazol 2021-06- No 40mg QD Take 1 [facility] e 0-01 10-05 tablet (40 st (PROTONIX) 00:00: 00:00 mg total) [facility] 40 MG EC 00 :00 by mouth l tablet daily for 30 days. protein 2021-0 Yes Q.[id number] Take by [facility] powder 9-[id number] 18:55: 3W (three) [facility] 55 times a l week. multivitami 0 Yes 1{tbl} QD Take 1 [facility] n 9-[address] (THERAGRAN) 18:55: mouth [facility] tablet 55 daily. l carBAMazepi 2021-0 Yes 100mg Q.5D Take 100 [facility] ne XR 9-[address] (TEGretol 18:55: mouth 2 [facility] XR) 100 MG 55 (two) l 12 hr times a tablet day as needed. polyethylen 0 Yes 17g Q24H Take 17 g [facility] e glycol 9-[address] (MIRALAX) 18:55: daily as [facility] 17 gram 55 needed. l packet protein 2021-0 Yes Q.[id number] Take by [facility] powder 9-[id number] 18:55: 3W (three) [facility] 55 times a l week. multivitami 2021-0 Yes 1{tbl} QD Take 1 [facility] 9-[address] (THERAGRAN) 18:55: mouth [facility] tablet 55 daily. l carBAMazepi 2021-0 Yes 100mg Q.5D Take 100 [facility] ne XR 9-[address] (TEGretol 18:55: mouth 2 [facility] XR) 100 MG 55 (two) l 12 hr times a tablet day as needed. polyethylen 2021-0 Yes 17g Q24H Take 17 g [facility] e glycol 9-[address] (MIRALAX) 18:55: daily as [facility] 17 gram 55 needed. l packet protein 2021-0 Yes Q.[id number] Take by [facility] powder 9-[id number] 18:55: 3W (three) [facility] 55 times a l week. multivitami 0 Yes 1{tbl} QD Take 1 [facility] 9-[address] (THERAGRAN) 18:55: mouth [facility] tablet 55 daily. l carBAMazepi 0 Yes 100mg Q.5D Take 100 [facility] ne XR 9-[address] (TEGretol 18:55: mouth 2 [facility] XR) 100 MG 55 (two) l 12 hr times a tablet day as needed. polyethylen 0 Yes 17g Q24H Take 17 g [facility] e glycol 9-[address] (MIRALAX) 18:55: daily as [facility] 17 gram 55 needed. l packet metoprolol 2021- No 25mg Q12H Take 1 [facility] succinate - 10-31 tablet (25 st XL 00:00: 04:59 mg total) [facility]osp[facility] (TOPROL-XL) 00 :00 by mouth l 25 mg 24 hr every 12 tablet (twelve) hours for 30 days. apixaban 0 2021- No 5mg Q.5D Take 1 [facility] (ELIQUIS) 5 - 10-31 tablet (5 st mg tablet 00:00: 04:59 mg total) [facility] 00 :00 by mouth 2 l (two) times a day for 30 days. sacubitriL- 2021-0 2022- No .5{tbl} Q.5D Take 0.5 [facility] valsartan 9-30 10-[address] (ENTRESTO) 00:00: 04:59 mouth 2 [facility] 24-26 mg 00 :00 (two) l tablet per times a tablet day for 30 days. sennosides- 2021-0 2021- No 2{tbl} Q.5D Take 2 [facility] docusate 9-30 10-[address] sodium 00:00: 04:59 mouth 2 [facility]osp[facility] (SENOKOT-S) 00 :00 (two) l 8.6-50 mg times a per tablet day for 30 days. metoprolol 2021-0 2021- No 25mg Q12H Take 1 [facility] succinate 9-30 10-31 tablet (25 st XL 00:00: 04:59 mg total) [facility] (TOPROL-XL) 00 :00 by mouth l 25 mg 24 hr every 12 tablet (twelve) hours for 30 days. apixaban 2021-0 2021- No 5mg Q.5D Take 1 [facility] (ELIQUIS) 5 9-30 10-31 tablet (5 st mg tablet 00:00: 04:59 mg total) [facility] 00 :00 by mouth 2 l (two) times a day for 30 days. sacubitriL- 2021-2021- No .5{tbl} Q.5D Take 0.5 [facility] valsartan 9-30 10-[address] (ENTRESTO) 00:00: 04:59 mouth 2 [facility] 24-26 mg 00 :00 (two) l tablet per times a tablet day for 30 days. sennosides- 2021-2021- No 2{tbl} Q.5D Take 2 [facility] docusate 9-30 10-[address] sodium 00:00: 04:59 mouth 2 [facility] (SENOKOT-S) 00 :00 (two) l 8.6-50 mg times a per tablet day for 30 days. metoprolol 2021-0 2021- No 25mg Q12H Take 1 [facility] succinate 9-30 10-31 tablet (25 st XL 00:00: 04:59 mg total) [facility] (TOPROL-XL) 00 :00 by mouth l 25 mg 24 hr every 12 tablet (twelve) hours for 30 days. apixaban 2021-0 2021- No 5mg Q.5D Take 1 [facility] (ELIQUIS) 5 9-30 10-31 tablet (5 st mg tablet 00:00: 04:59 mg total) [facility] 00 :00 by mouth 2 l (two) times a day for 30 days. sacubitriL- 2021-0 2021- No .5{tbl} Q.5D Take 0.5 [facility] valsartan 9-30 10-[address] (ENTRESTO) 00:00: 04:59 mouth 2 [facility] 24-26 mg 00 :00 (two) l tablet per times a tablet day for 30 days. sennosides- 2021-2021- No 2{tbl} Q.5D Take 2 [facility] docusate 9-30 10-[address] sodium 00:00: 04:59 mouth 2 [facility] (SEN[place]OT-S) 00 :00 (two) l 8.6-50 mg times a per tablet day for 30 days. metoprolol 2021-2021- No 25mg Q12H Take 1 [facility] succinate 9-30 10-31 tablet (25 st XL 00:00: 04:59 mg total) [facility] (TOPROL-XL) 00 :00 by mouth l 25 mg 24 hr every 12 tablet (twelve) hours for 30 days. apixaban 2021-2021- No 5mg Q.5D Take 1 [facility] (ELIQUIS) 5 9-30 10-31 tablet (5 st mg tablet 00:00: 04:59 mg total) [facility] 00 :00 by mouth 2 l (two) times a day for 30 days. sacubitriL- 2021-2021- No .5{tbl} Q.5D Take 0.5 [facility] valsartan 9-30 10-[address] (ENTRESTO) 00:00: 04:59 mouth 2 [facility] 24-26 mg 00 :00 (two) l tablet per times a tablet day for 30 days. sennosides- 2021-0 2021- No 2{tbl} Q.5D Take 2 [facility] docusate 9-30 10-[address] sodium 00:00: 04:59 mouth 2 [facility]osp[facility] (SENOKOT-S) 00 :00 (two) l 8.6-50 mg times a per tablet day for 30 days. metoprolol 2021-0 2021- No 25mg Q12H Take 1 [facility] succinate 9-30 10-31 tablet (25 st XL 00:00: 04:59 mg total) [facility]osp[facility] (TOPROL-XL) 00 :00 by mouth l 25 mg 24 hr every 12 tablet (twelve) hours for 30 days. apixaban 2021-0 2- No 5mg Q.5D Take 1 [facility] (ELIQUIS) 5 9-30 10-31 tablet (5 st mg tablet 00:00: 04:59 mg total) [facility] 00 :00 by mouth 2 l (two) times a day for 30 days. sacubitriL- 2021-0 2- No .5{tbl} Q.5D Take 0.5 [facility] valsartan 9-30 10-[address] (ENTRESTO) 00:00: 04:59 mouth 2 [facility] 24-26 mg 00 :00 (two) l tablet per times a tablet day for 30 days. sennosides- 2021-0 2021- No 2{tbl} Q.5D Take 2 [facility] docusate 9-30 10-[address] sodium 00:00: 04:59 mouth 2 [facility] (SENOKOT-S) 00 :00 (two) l 8.6-50 mg times a per tablet day for 30 days. metoprolol 2021-0 2021- No 25mg Q12H Take 1 [facility] succinate 9-30 10-31 tablet (25 st XL 00:00: 04:59 mg total) [facility]osp[facility] (TOPROL-XL) 00 :00 by mouth l 25 mg 24 hr every 12 tablet (twelve) hours for 30 days. apixaban 2021-0 2021- No 5mg Q.5D Take 1 [facility] (ELIQUIS) 5 9-30 10-31 tablet (5 st mg tablet 00:00: 04:59 mg total) [facility] 00 :00 by mouth 2 l (two) times a day for 30 days. sacubitriL- 2021-0 2- No .5{tbl} Q.5D Take 0.5 [facility] valsartan 9-30 10-[address] (ENTRESTO) 00:00: 04:59 mouth 2 [facility] 24-26 mg 00 :00 (two) l tablet per times a tablet day for 30 days. sennosides- 2021-0 2022- No 2{tbl} Q.5D Take 2 M [facility]i docusate 9-30 10-[address] sodium 00:00: 04:59 mouth 2 [facility] ([facility]) 00 :00 (two) l 8.6-50 mg times a per tablet day for 30 days. metoprolol 2021-0 2- No 25mg Q12H Take 1 Meth cecil succinate 9-30 10-31 tablet (25 st XL 00:00: 04:59 mg total) [facility]osp[facility] (TOPROL-XL) 00 :00 by mouth l 25 mg 24 hr every 12 tablet (twelve) hours for 30 days. apixaban 2021-0 2021- No 5mg Q.5D Take 1 [facility] i (ELIQUIS) 5 9-30 10-31 tablet (5 st mg tablet 00:00: 04:59 mg total) [facility] 00 :00 by mouth 2 l (two) times a day for 30 days. sacubitriL- 2021-2021- No .5{tbl} Q.5D Take 0.5 [facility] valsartan 9-30 10-[address] ([facility]) 00:00: 04:59 mouth 2 [facility] 24-26 mg 00 :00 (two) l tablet per times a tablet day for 30 days. sennosides- 2021-2021- No 2{tbl} Q.5D Take 2 M [facility]i docusate 9-30 10-[address] sodium 00:00: 04:59 mouth 2 [facility] ([facility]) 00 :00 (two) l 8.6-50 mg times a per tablet day for 30 days. metoprolol 2021-0 2- No 25mg Q12H Take 1 Meth cecil succinate 9-30 10-31 tablet (25 st XL 00:00: 04:59 mg total) [facility] (TOPROL-XL) 00 :00 by mouth l 25 mg 24 hr every 12 tablet (twelve) hours for 30 days. apixaban 2021-0 2- No 5mg Q.5D Take 1 [facility] (ELIQUIS) 5 9-30 10-31 tablet (5 st mg tablet 00:00: 04:59 mg total) [facility] 00 :00 by mouth 2 l (two) times a day for 30 days. sacubitriL- 2021-0 2021- No .5{tbl} Q.5D Take 0.5 [facility] valsartan 9-30 10-[address] ([facility]REST[facility]) 00:00: 04:59 mouth 2 [facility] 24-26 mg 00 :00 (two) l tablet per times a tablet day for 30 days. sennosides- 2021- No 2{tbl} Q.5D Take 2 M [facility]i docusate 9-30 10-[address] sodium 00:00: 04:59 mouth 2 [facility] ([facility]) 00 :00 (two) l 8.6-50 mg times a per tablet day for 30 days. metoprolol 2021- No 25mg Q12H Take 1 Meth cecil succinate 9-30 10-31 tablet (25 st XL 00:00: 04:59 mg total) [facility] (TOPROL-XL) 00 :00 by mouth l 25 mg 24 hr every 12 tablet (twelve) hours for 30 days. apixaban 2021- No 5mg Q.5D Take 1 [facility] (ELIQUIS) 5 -30 10-31 tablet (5 st mg tablet 00:00: 04:59 mg total) [facility] 00 :00 by mouth 2 l (two) times a day for 30 days. sacubitriL- 2021- No .5{tbl} Q.5D Take 0.5 [facility] valsartan 9-30 10-[address] (ENTRESTO) 00:00: 04:59 mouth 2 [facility] 24-26 mg 00 :00 (two) l tablet per times a tablet day for 30 days. sennosides- 2021- No 2{tbl} Q.5D Take 2 M [facility]i docusate 9-30 10-[address] sodium 00:00: 04:59 mouth 2 [facility] ([facility]) 00 :00 (two) l 8.6-50 mg times a per tablet day for 30 days. furosemide 2021- No 40mg QD Take 1 [facility] (Lasix) 40 9-30 10-05 tablet (40 st mg tablet 00:00: 00:00 mg total) [facility] 00 :00 by mouth l daily for 30 days. furosemide 2021- No 40mg QD Take 1 [facility] (Lasix) 40 9-30 10-05 tablet (40 st mg tablet 00:00: 00:00 mg total) [facility] 00 :00 by mouth l daily for 30 days. furosemide 0 2021- No 40mg QD Take 1 [facility] (Lasix) 40 9-30 10-05 tablet (40 st mg tablet 00:00: 00:00 mg total) [facility] 00 :00 by mouth l daily for 30 days. furosemide 0 2021- No 40mg QD Take 1 [facility] (Lasix) 40 9-30 10-05 tablet (40 st mg tablet 00:00: 00:00 mg total) [facility] 00 :00 by mouth l daily for 30 days. furosemide 2021- No 40mg QD Take 1 [facility] (Lasix) 40 9-30 10-05 tablet (40 st mg tablet 00:00: 00:00 mg total) [facility] 00 :00 by mouth l daily for 30 days. furosemide 2021- No 40mg QD Take 1 [facility] (Lasix) 40 9-30 10-05 tablet (40 st mg tablet 00:00: 00:00 mg total) [facility] 00 :00 by mouth l daily for 30 days. furosemide 2021- No 40mg QD Take 1 [facility] (Lasix) 40 9-30 10-05 tablet (40 st mg tablet 00:00: 00:00 mg total) [facility] 00 :00 by mouth l daily for 30 days. furosemide 2021- No 40mg QD Take 1 [facility] (Lasix) 40 9-30 10-05 tablet (40 st mg tablet 00:00: 00:00 mg total) [facility] 00 :00 by mouth l daily for 30 days. furosemide 0 2021- No 40mg QD Take 1 [facility] (Lasix) 40 9-30 10-05 tablet (40 st mg tablet 00:00: 00:00 mg total) [facility] 00 :00 by mouth l daily for 30 days. methylPREDN Yes follow [facility] ISolone 03-[address] (Medrol, 00:00: directions [facility],) 4 mg 00 l tablet methylPREDN 2022-0 Yes follow [facility] ISolone 9-[address] (Medrol, 00:00: directions [facility],) 4 mg 00 l tablet methylPREDN 2022-0 Yes follow [facility] ISolone 9-[address] (Medrol, 00:00: directions [facility],) 4 mg 00 l tablet levoFLOXaci 2022-0 Yes 500mg QD Take 1 [facility] 9-[address] (Levaquin) 00:00: (500 mg [facility] 500 MG 00 total) by l tablet mouth daily. methylPREDN 2022-0 Yes follow [facility] ISolone 9-[address] (Medrol, 00:00: directions [facility],) 4 mg 00 l tablet levoFLOXaci 2022-0 Yes 500mg QD Take 1 [facility] 9-[address] (Levaquin) 00:00: (500 mg [facility] 500 MG 00 total) by l tablet mouth daily. methylPREDN 2022-0 Yes follow [facility] ISolone 9-[address] (Medrol, 00:00: directions [facility],) 4 mg 00 l tablet levoFLOXaci 2022-0 Yes 500mg QD Take 1 [facility] 9-[address] (Levaquin) 00:00: (500 mg [facility] 500 MG 00 total) by l tablet mouth daily. methylPREDN 2022-0 Yes follow [facility] ISolone -[address] (Medrol, 00:00: directions [facility],) 4 mg 00 l tablet levoFLOXaci 2022-0 Yes 500mg QD Take 1 [facility] 9-[address] (Levaquin) 00:00: (500 mg [facility] 500 MG 00 total) by l tablet mouth daily. methylPREDN 2022-0 Yes follow [facility] ISolone 9-[address] (Medrol, 00:00: directions [facility],) 4 mg 00 l tablet methylPREDN 2022-0 Yes follow [facility] ISolone 9-[address] (Medrol, 00:00: directions [facility],) 4 mg 00 l tablet methylPREDN 2022-0 2023- No follow [facility] ISolone 9-29 04-[address] (Medrol, 00:00: 00:00 directions [facility],) 4 mg 00 :00 l tablet levoFLOXaci 2021- 2022- No 500mg QD Take 1 [facility] ericodi n 9-03 04-[address] (Levaquin) 00:00: 00:00 (500 mg [facility] 500 MG 00 :00 total) by l tablet mouth daily. levoFLOXaci 2021-0 2022- No 500mg QD Take 1 Me ericodi n 9-04-[address] (Levaquin) 00:00: 00:00 (500 mg [facility] 500 MG 00 :00 total) by l tablet mouth daily. levoFLOXaci 2021-0 2022- No 500mg QD Take 1 Me ericodi n 9-03 04- tablet st (Levaquin) 00:00: 00:00 (500 mg [facility] 500 MG 00 :00 total) by l tablet mouth daily. levoFLOXaci 2021-0 2022- No 500mg QD Take 1 Me ericodi n 03-[address] (Levaquin) 00:00: 00:00 (500 mg [facility] 500 MG 00 :00 total) by l tablet mouth daily. levoFLOXaci 2021-0 2022- No 500mg QD Take 1 Me ericodi n 03-[address] (Levaquin) 00:00: 00:00 (500 mg [facility] 500 MG 00 :00 total) by l tablet mouth daily. omega-3s-dh 2021-0 2021- No QD Take by [facility] a-epa-fish 02-[address] oil-D3 350 02:43: 00:00 daily. [facility] mg-400 mg- 59 :00 l 1,000 unit capsule omega-3s-dh 2021-2- No [facility] oil-D3 350 02:43: 00:00 daily. [facility] mg-400 mg- 59 :00 l 1,000 unit capsule omega-3s-dh 2021-0 2022- No [facility]D [facility] oil-D3 350 02:43: 00:00 daily. [facility] mg-400 mg- 59 :00 l 1,000 unit capsule omega-3s-dh 2021- No QD Take by [facility]-epa[facility]fish 02-[address] oil-D3 350 02:43: 00:00 daily. [facility] mg-400 mg- 59 :00 l 1,000 unit capsule omega-3s-dh 2021- No QD Take by [facility] a-epa-fish 02-[address] oil-D3 350 02:43: 00:00 daily. [facility] mg-400 mg- 59 :00 l 1,000 unit capsule omega-3s-dh 2021- No QD Take by [facility] a-epa-fish 02-[address] oil-D3 350 02:43: 00:00 daily. [facility] mg-400 mg- 59 :00 l 1,000 unit capsule omega-3s-dh 2021- No QD Take by [facility] a-epa-fish 02-[address] oil-D3 350 02:43: 00:00 daily. [facility] mg-400 mg- 59 :00 l 1,000 unit capsule omega-3s-dh 2021- No QD Take by [facility] a-epa-fish 02-[address] oil-D3 350 02:43: 00:00 daily. [facility] mg-400 mg- 59 :00 l 1,000 unit capsule omega-3s-dh 2021- No QD Take by [facility] a-epa-fish 02-[address] oil-D3 350 02:43: 00:00 daily. [facility] mg-400 mg- 59 :00 l 1,000 unit capsule methylnaltr 2021-0 Yes [id number] 450mg Q24H Take 450 [facility] ([facility]) 00:00: mouth [facility] 150 mg 00 daily as l tablet needed (constipat ion). methylnaltr 2-0 Yes [id number] 450mg Q24H Take 450 [facility] 7-[address] ([facility]) 00:00: mouth [facility] 150 mg 00 daily as l tablet needed (constipat ion). methylnaltr 2021-0 Yes [id number] 450mg Q24H Take 450 [facility] 7-[address] ([facility]) 00:00: mouth [facility] 150 mg 00 daily as l tablet needed (constipat ion). methylnaltr 2021-0 Yes [id number] 450mg Q24H Take 450 [facility] 7[facility] ([facility]) 00:00: mouth [facility] 150 mg 00 daily as l tablet needed (constipat ion). methylnaltr 2021-0 Yes [id number] 450mg Q24H Take 450 [facility] 7[facility] ([facility]) 00:00: mouth [facility] 150 mg 00 daily as l tablet needed (constipat ion). methylnaltr 2021-0 Yes [id number] 450mg Q24H Take 450 [facility] 7[facility] ([facility]) 00:00: mouth [facility] 150 mg 00 daily as l tablet needed (constipat ion). methylnaltr 0 Yes [id number] 450mg Q24H Take 450 [facility] 7[facility] ([facility]) 00:00: mouth [facility] 150 mg 00 daily as l tablet needed (constipat ion). methylnaltr 2021-0 Yes [id number] 450mg Q24H Take 450 [facility] 7[facility] ([facility]) 00:00: mouth [facility] 150 mg 00 daily as l tablet needed (constipat ion). methylnaltr 0 3- No [id number] 450mg Q24H Take 450 [facility] 7-22 04-[address] ([facility]) 00:00: 00:00 mouth [facility] 150 mg 00 :00 daily as l tablet needed (constipat ion). traMADoL 2021-0 Yes [id number] 100mg Q8H Take 2 [facility] (ULTRAM) 50 6-[address] mg tablet 00:00: (100 mg [facility] 00 total) by l mouth every 8 (eight) hours as needed for moderate pain for up to 30 days .chronic pain. DULoxetine 2021-0 Yes [id number] 30mg Q.5D Take 1 [facility] (Cymbalta) 6-[address] 30 MG 00:00: (30 mg [facility] capsule 00 total) by l mouth 2 (two) times a day. DULoxetine 2021-0 Yes [id number] 30mg Q.5D Take 1 [facility] (Cymbalta) 6-[address] 30 MG 00:00: (30 mg [facility] capsule 00 total) by l mouth 2 (two) times a day. DULoxetine 0 Yes [id number] 30mg Q.5D Take 1 [facility] (Cymbalta) 6-[address] 30 MG 00:00: (30 mg [facility] capsule 00 total) by l mouth 2 (two) times a day. traMADoL 2021-0 Yes [id number] 100mg Q8H Take 2 [facility] (ULTRAM) 50 6-[address] mg tablet 00:00: (100 mg [facility] 00 total) by l mouth every 8 (eight) hours as needed for moderate pain for up to 30 days .chronic pain. DULoxetine 2021- Yes [id number] 30mg Q.5D Take 1 [facility] (Cymbalta) 6-[address] 30 MG 00:00: (30 mg [facility] capsule 00 total) by l mouth 2 (two) times a day. traMADoL 2021-0 Yes [id number] 100mg Q8H Take 2 [facility] (ULTRAM) 50 6-[address] mg tablet 00:00: (100 mg [facility] 00 total) by l mouth every 8 (eight) hours as needed for moderate pain for up to 30 days .chronic pain. DULoxetine Yes [id number] 30mg Q.5D Take 1 [facility] (Cymbalta) 6-[address] 30 MG 00:00: (30 mg [facility] capsule 00 total) by l mouth 2 (two) times a day. traMADoL 2021-0 Yes [id number] 100mg Q8H Take 2 [facility] (ULTRAM) 50 6-[address] mg tablet 00:00: (100 mg [facility] 00 total) by l mouth every 8 (eight) hours as needed for moderate pain for up to 30 days .chronic pain. DULoxetine 2021-0 Yes [id number] 30mg Q.5D Take 1 [facility] (Cymbalta) 6-[address] 30 MG 00:00: (30 mg [facility]osp[facility] capsule 00 total) by l mouth 2 (two) times a day. traMADoL Yes [id number] 100mg Q8H Take 2 [facility] (ULTRAM) 50 6-[address] mg tablet 00:00: (100 mg [facility] 00 total) by l mouth every 8 (eight) hours as needed for moderate pain for up to 30 days .chronic pain. DULoxetine Yes [id number] 30mg Q.5D Take 1 [facility] (Cymbalta) 6-[address] 30 MG 00:00: (30 mg [facility] capsule 00 total) by l mouth 2 (two) times a day. traMADoL Yes [id number] 100mg Q8H Take 2 [facility] (ULTRAM) 50 6-[address] mg tablet 00:00: (100 mg [facility] 00 total) by l mouth every 8 (eight) hours as needed for moderate pain for up to 30 days .chronic pain. DULoxetine Yes [id number] 30mg Q.5D Take 1 [facility] (Cymbalta) 6-[address] 30 MG 00:00: (30 mg [facility] capsule 00 total) by l mouth 2 (two) times a day. DULoxetine 2022- No [id number] 30mg Q.5D Take 1 [facility] (Cymbalta) 6-28 03-[address] 30 MG 00:00: 00:00 (30 mg [facility]osp[facility] capsule 00 :00 total) by l mouth 2 (two) times a day. traMADoL 2021- No [id number] 100mg Q8H Take 2 [facility] (ULTRAM) 50 6-28 11-[address] mg tablet 00:00: 00:00 (100 mg [facility] 00 :00 total) by l mouth every 8 (eight) hours as needed for moderate pain for up to 30 days .chronic pain. traMADoL 2021- No [id number] 100mg Q8H Take 2 [facility] (ULTRAM) 50 6-28 11-[address] mg tablet 00:00: 00:00 (100 mg [facility] 00 :00 total) by l mouth every 8 (eight) hours as needed for moderate pain for up to 30 days .chronic pain. traMADoL 2021- No [id number] 100mg Q8H Take 2 [facility] (ULTRAM) 50 6-28 11-[address] mg tablet 00:00: 00:00 (100 mg [facility] 00 :00 total) by l mouth every 8 (eight) hours as needed for moderate pain for up to 30 days .chronic pain. Myrbetriq 2022-0 Yes 50mg QD Take 1 [facility] 50 mg 6-02 tablet (50 st tablet 00:00: mg total) [facility] extended 00 by mouth l release 24 daily .for hr overactive bladder. Myrbetriq 2022-0 Yes 50mg QD Take 1 [facility] 50 mg 6-02 tablet (50 st tablet 00:00: mg total) [facility] extended 00 by mouth l release 24 daily .for hr overactive bladder. Myrbetriq 2022-0 Yes 50mg QD Take 1 [facility] 50 mg 6-02 tablet (50 st tablet 00:00: mg total) [facility] extended 00 by mouth l release 24 daily .for hr overactive bladder. Myrbetriq 2022-0 Yes 50mg QD Take 1 [facility] 50 mg 6-02 tablet (50 st tablet 00:00: mg total) [facility] extended 00 by mouth l release 24 daily .for hr overactive bladder. Myrbetriq 2022-0 Yes 50mg QD Take 1 [facility] 50 mg 6-02 tablet (50 st tablet 00:00: mg total) [facility] extended 00 by mouth l release 24 daily .for hr overactive bladder. Myrbetriq 2022-0 Yes 50mg QD Take 1 [facility] 50 mg 6-02 tablet (50 st tablet 00:00: mg total) [facility] extended 00 by mouth l release 24 daily .for hr overactive bladder. Myrbetriq 2022-0 Yes 50mg QD Take 1 [facility] 50 mg 6-02 tablet (50 st tablet 00:00: mg total) [facility] extended 00 by mouth l release 24 daily .for hr overactive bladder. Myrbetriq 2022-0 Yes 50mg QD Take 1 [facility] 50 mg 6-02 tablet (50 st tablet 00:00: mg total) [facility] extended 00 by mouth l release 24 daily .for hr overactive bladder. Myrbetriq 2022-0 2023- No 50mg QD Take 1 [facility] 50 mg 6-02 04-04 tablet (50 st tablet 00:00: 00:00 mg total) [facility] extended 00 :00 by mouth l release 24 daily .for hr overactive bladder. docosahexae 2022-0 2022- No 2g Take 2 g [facility] noic 5-31 05-[address] acid-epa 18:27: 00:00 [facility]osp[facility] 120-180 mg 57 :00 l capsule docosahexae 2022-0 2022- No 2g Take 2 g [facility]i noic 5- 05-[address] acid-epa 18:27: 00:00 [facility]osp[facility] 120-180 mg 57 :00 l capsule docosahexae 2-0 2022- No 2g Take 2 g [facility]i noic 5- 05-[address] acid-epa 18:27: 00:00 [facility] 120-180 mg 57 :00 l capsule docosahexae 2022-0 2022- No 2g Take 2 g [facility]i noic 5-31 05-[address] acid-epa 18:27: 00:00 [facility]osp[facility] 120-180 mg 57 :00 l capsule docosahexae 2-0 2- No 2g Take 2 g [facility]i noic - 05-[address] acid-epa 18:27: 00:00 [facility]osp[facility] 120-180 mg 57 :00 l capsule docosahexae 2-0 2- No 2g Take 2 g [facility]i noic 5-31 05-[address] acid-epa 18:27: 00:00 [facility] 120-180 mg 57 :00 l capsule docosahexae 2-0 2- No 2g Take 2 g [facility]i noic - 05-[address] acid-epa 18:27: 00:00 [facility] 120-180 mg 57 :00 l capsule docosahexae 2-0 2022- No 2g Take 2 g [facility]i noic - 05-[address] acid-epa 18:27: 00:00 [facility] 120-180 mg 57 :00 l capsule traMADoL 2021-0 2021- No [id number] 50mg Q8H Take 1 [facility] (ULTRAM) 50 5-12 06-28 tablet (50 s t mg tablet 00:00: 00:00 mg total) [facility] 00 :00 by mouth l every 8 (eight) hours as needed for moderate pain for up to 30 days .chronic pain. traMADoL 2021- [place] [id number] 50mg Q8H Take 1 [facility] (ULTRAM) 50 5-12 06-28 tablet (50 s t mg tablet 00:00: 00:00 mg total) [facility] 00 :00 by mouth l every 8 (eight) hours as needed for moderate pain for up to 30 days .chronic pain. traMADoL 2021- No [id number] 50mg Q8H Take 1 [facility] (ULTRAM) 50 5-12 06-28 tablet (50 s t mg tablet 00:00: 00:00 mg total) [facility] 00 :00 by mouth l every 8 (eight) hours as needed for moderate pain for up to 30 days .[place] [id number] 50mg Q8H Take 1 [facility] (ULTRAM) 50 5-12 06-28 tablet (50 s t mg tablet 00:00: 00:00 mg total) [facility] 00 :00 by mouth l every 8 (eight) hours as needed for moderate pain for up to 30 days .[place] [id number] 50mg Q8H Take 1 [facility] (ULTRAM) 50 5-12 06-28 tablet (50 s t mg tablet 00:00: 00:00 mg total) [facility] 00 :00 by mouth l every 8 (eight) hours as needed for moderate pain for up to 30 days .chronic pain. traMADoL 2021- No [id number] 50mg Q8H Take 1 [facility] (ULTRAM) 50 5-12 06-28 tablet (50 s t mg tablet 00:00: 00:00 mg total) [facility] 00 :00 by mouth l every 8 (eight) hours as needed for moderate pain for up to 30 days .chronic pain. traMADoL 2021- No [id number] 50mg Q8H Take 1 [facility] (ULTRAM) 50 5-12 06-28 tablet (50 s t mg tablet 00:00: 00:00 mg total) [facility] 00 :00 by mouth l every 8 (eight) hours as needed for moderate pain for up to 30 days .chronic pain. traMADoL 2021- No [id number] 50mg Q8H Take 1 [facility] (ULTRAM) 50 5-12 06-28 tablet (50 s t mg tablet 00:00: 00:00 mg total) [facility] 00 :00 by mouth l every 8 (eight) hours as needed for moderate pain for up to 30 days .chronic pain. meclizine 2021-0 Yes [id number] 25mg Q.[id number] Take 1 [facility] (ANTIVERT) 4-19 [id number] tablet (25 st 25 mg 00:00: 3D mg total) [facility]osp[facility] tablet 00 by mouth 3 l (three) times a day as needed for dizziness. meclizine 2021-0 Yes [id number] 25mg Q.[id number] Take 1 [facility] (ANTIVERT) 4-19 [id number] tablet (25 st 25 mg 00:00: 3D mg total) [facility]osp[facility] tablet 00 by mouth 3 l (three) times a day as needed for dizziness. meclizine 2021-0 Yes [id number] 25mg Q.[id number] Take 1 [facility] (ANTIVERT) 4-19 [id number] tablet (25 st 25 mg 00:00: 3D mg total) [facility]osp[facility] tablet 00 by mouth 3 l (three) times a day as needed for dizziness. meclizine 2021-0 Yes [id number] 25mg Q.[id number] Take 1 [facility] (ANTIVERT) 4-19 [id number] tablet (25 st 25 mg 00:00: 3D mg total) [facility]osp[facility] tablet 00 by mouth 3 l (three) times a day as needed for dizziness. meclizine 2021-0 Yes [id number] 25mg Q.[id number] Take 1 [facility] (ANTIVERT) 4-19 [id number] tablet (25 st 25 mg 00:00: 3D mg total) [facility]osp[facility] tablet 00 by mouth 3 l (three) times a day as needed for dizziness. meclizine 2021-0 Yes [id number] 25mg Q.[id number] Take 1 [facility] (ANTIVERT) 4-19 [id number] tablet (25 st 25 mg 00:00: 3D mg total) [facility]osp[facility] tablet 00 by mouth 3 l (three) times a day as needed for dizziness. meclizine 2022-0 Yes [id number] 25mg Q.[id number] Take 1 [facility] (ANTIVERT) 4-19 [id number] tablet (25 st 25 mg 00:00: 3D mg total) [facility]osp[facility] tablet 00 by mouth 3 l (three) times a day as needed for dizziness. meclizine Yes [id number] 25mg Q.35204514 Take 1 [facility] (ANTIVERT) 4-19 [id number] tablet (25 st 25 mg 00:00: 3D mg total) [facility]osp[facility] tablet 00 by mouth 3 l (three) times a day as needed for dizziness. meclizine Yes [id number] 25mg Q.[id number] Take 1 [facility] (ANTIVERT) 4-19 [id number] tablet (25 st 25 mg 00:00: 3D mg total) [facility]osp[facility] tablet 00 by mouth 3 l (three) times a day as needed for dizziness. predniSONE 2021- No [id number] 40mg QD Take 2 [facility] (DELTASONE) 4-19 04-[address] 20 mg 00:00: 04:59 (40 mg [facility]osp[facility] tablet 00 :00 total) by l mouth daily for 5 days. predniSONE 2021- No [id number] 40mg QD Take 2 [facility] (DELTASONE) 4-19 04-[address] 20 mg 00:00: 04:59 (40 mg [facility]osp[facility] tablet 00 :00 total) by l mouth daily for 5 days. predniSONE 2021- No [id number] 40mg QD Take 2 [facility] (DELTASONE) 4-19 04-[address] 20 mg 00:00: 04:59 (40 mg [facility] tablet 00 :00 total) by l mouth daily for 5 days. predniSONE 2021- No [id number] 40mg QD Take 2 [facility] (DELTASONE) 4-19 04-[address] 20 mg 00:00: 04:59 (40 mg [facility]osp[facility] tablet 00 :00 total) by l mouth daily for 5 days. predniSONE 2021-2021- No [id number] 40mg QD Take 2 [facility] (DELTASONE) 4-19 04-[address] 20 mg 00:00: 04:59 (40 mg [facility] tablet 00 :00 total) by l mouth daily for 5 days. predniSONE 2021- No [id number] 40mg QD Take 2 [facility] (DELTASONE) 4-19 04-[address] 20 mg 00:00: 04:59 (40 mg [facility]osp[facility] tablet 00 :00 total) by l mouth daily for 5 days. predniSONE 2021- No [id number] 40mg QD Take 2 [facility] (DELTASONE) 4-19 04-[address] 20 mg 00:00: 04:59 (40 mg [facility] tablet 00 :00 total) by l mouth daily for 5 days. predniSONE 2021- No [id number] 40mg QD Take 2 [facility] (DELTASONE) 4-19 04-[address] 20 mg 00:00: :59 (40 mg [facility]osp[facility] tablet 00 :00 total) by l mouth daily for 5 days. [place] 2021- [place] [id number] 50mg Q6H Take 1 [facility] (ULTRAM) 50 4-08 05-12 tablet (50 s t mg tablet 00:00: 00:00 mg total) [facility] 00 :00 by mouth l every 6 (six) hours as needed for moderate pain for up to 30 days .chronic pain. traMADoL 2021- No [id number] 50mg Q6H Take 1 [facility] (ULTRAM) 50 4-08 05-12 tablet (50 s t mg tablet 00:00: 00:00 mg total) [facility] 00 :00 by mouth l every 6 (six) hours as needed for moderate pain for up to 30 days .chronic pain. traMADoL 2021- No [id number] 50mg Q6H Take 1 [facility] (ULTRAM) 50 4-08 05-12 tablet (50 s t mg tablet 00:00: 00:00 mg total) [facility] 00 :00 by mouth l every 6 (six) hours as needed for moderate pain for up to 30 days .chronic pain. traMADoL 2021- No [id number] 50mg Q6H Take 1 [facility] (ULTRAM) 50 4-08 05-12 tablet (50 s t mg tablet 00:00: 00:00 mg total) [facility] 00 :00 by mouth l every 6 (six) hours as needed for moderate pain for up to 30 days .chronic pain. traMADoL 2021- No [id number] 50mg Q6H Take 1 [facility] (ULTRAM) 50 4-08 05-12 tablet (50 s t mg tablet 00:00: 00:00 mg total) [facility] 00 :00 by mouth l every 6 (six) hours as needed for moderate pain for up to 30 days .chronic pain. traMADoL 2021-2021- [place] [id number] 50mg Q6H Take 1 [facility] (ULTRAM) 50 4-08 05-12 tablet (50 s t mg tablet 00:00: 00:00 mg total) [facility] 00 :00 by mouth l every 6 (six) hours as needed for moderate pain for up to 30 days .chronic pain. traMADoL 2021-2021- [place] [id number] 50mg Q6H Take 1 [facility] (ULTRAM) 50 4-08 05-12 tablet (50 s t mg tablet 00:00: 00:00 mg total) [facility] 00 :00 by mouth l every 6 (six) hours as needed for moderate pain for up to 30 days .chronic pain. traMADoL 2021-2021- No [id number] 50mg Q6H Take 1 [facility] (ULTRAM) 50 4-08 05-12 tablet (50 s t mg tablet 00:00: 00:00 mg total) [facility] 00 :00 by mouth l every 6 (six) hours as needed for moderate pain for up to 30 days .chronic pain. DULoxetine 2021- No 30mg Q.5D Take 1 [facility] (Cymbalta) 09-01- capsule st 30 MG 00:00: 00:00 (30 mg [facility]osp[facility] capsule 00 :00 total) by l mouth 2 (two) times a day. DULoxetine 2021-2021- No 30mg Q.5D Take 1 [facility] (Cymbalta) 09-01- capsule st 30 MG 00:00: 00:00 (30 mg [facility] capsule 00 :00 total) by l mouth 2 (two) times a day. DULoxetine 2021-2021- No 30mg Q.5D Take 1 [facility] (Cymbalta) 09-01-[address] 30 MG 00:00: 00:00 (30 mg [facility] capsule 00 :00 total) by l mouth 2 (two) times a day. DULoxetine 2021-0 2- No 30mg Q.5D Take 1 [facility] (Cymbalta) 3-02 12-[address] 30 MG 00:00: 00:00 (30 mg [facility] capsule 00 :00 total) by l mouth 2 (two) times a day. DULoxetine 2021-0 2021- No 30mg Q.5D Take 1 [facility] (Cymbalta) 3-02 12-[address] 30 MG 00:00: 00:00 (30 mg [facility] capsule 00 :00 total) by l mouth 2 (two) times a day. DULoxetine 2021-0 2021- No 30mg Q.5D Take 1 [facility] (Cymbalta) 3-02 12- capsule st 30 MG 00:00: 00:00 (30 mg [facility] capsule 00 :00 total) by l mouth 2 (two) times a day. DULoxetine 2021-0 2021- No 30mg Q.5D Take 1 [facility] (Cymbalta) 3-02 12- capsule st 30 MG 00:00: 00:00 (30 mg [facility] capsule 00 :00 total) by l mouth 2 (two) times a day. DULoxetine 2021-0 2021- No 30mg Q.5D Take 1 [facility] (Cymbalta) 3- capsule st 30 MG 00:00: 00:00 (30 mg [facility]osp[facility] capsule 00 :00 total) by l mouth 2 (two) times a day. [place] 2021- [place] [id number] 1{tbl} Q6H Take 1 [facility] -acetaminop 3-29 04-[address] [facility] ([employer]) 00:00: 04:59 mouth [facility] 10-325 mg 00 :00 every 6 l per tablet (six) hours as needed for moderate pain for up to 30 days .chronic pain. Max Daily Amount: 4 tablets HYDROcodone 2021- No [id number] 1{tbl} Q6H Take 1 [facility] -acetaminop 3-29 04-[address] [facility] ([employer]) 00:00: 04:59 mouth [facility] 10-325 mg 00 :00 every 6 l per tablet (six) hours as needed for moderate pain for up to 30 days .chronic pain. Max Daily Amount: 4 tablets HYDROcodone 2022-0 2021- No [id number] 1{tbl} Q6H Take 1 [facility] -acetaminop 3-29 04-[address] [facility] ([employer]) 00:00: 04:59 mouth [facility] 10-325 mg 00 :00 every 6 l per tablet (six) hours as needed for moderate pain for up to 30 days .chronic pain. Max Daily Amount: 4 tablets HYDROcodone 2021-0 2021- [place] [id number] 1{tbl} Q6H Take 1 [facility] -acetaminop 3-29 04-[address] [facility] ([employer]) 00:00: 04:59 mouth [facility] 10-325 mg 00 :00 every 6 l per tablet (six) hours as needed for moderate pain for up to 30 days .chronic pain. Max Daily Amount: 4 tablets HYDROcodone 2021-0 2021- [place] [id number] 1{tbl} Q6H Take 1 [facility] -acetaminop 3-29 04-[address] [facility] ([employer]) 00:00: 04:59 mouth [facility] 10-325 mg 00 :00 every 6 l per tablet (six) hours as needed for moderate pain for up to 30 days .chronic pain. Max Daily Amount: 4 tablets HYDROcodone 2021-0 2021- No [id number] 1{tbl} Q6H Take 1 [facility] -acetaminop 3-29 04-[address] [facility] ([employer]) 00:00: 04:59 [facility] 10-325 mg 00 :00 every 6 l per tablet (six) hours as needed for moderate pain for up to 30 days .chronic pain. Max Daily Amount: 4 tablets HYDROcodone 2022-0 2021- No [id number] 1{tbl} Q6H Take 1 [facility] -acetaminop 3-29 04-[address] [facility] ([employer]) 00:00: 04:59 [facility] 10-325 mg 00 :00 every 6 l per tablet (six) hours as needed for moderate pain for up to 30 days .chronic pain. Max Daily Amount: 4 tablets HYDROcodone 2022-0 2021- [place] [id number] 1{tbl} Q6H Take 1 [facility] -acetaminop 3-29 04-[address] [place] ([facility]) 00:00: 04:59 [facility] 10-325 mg 00 :00 every 6 l per tablet (six) hours as needed for moderate pain for up to 30 days .chronic pain. Max Daily Amount: 4 tablets fesoterodin Yes 4mg QD Take [address] [facility] ([facility]) 3-23 by [facility] 4 mg 24 hr 10:15: daily. Medic al tablet 11 [facility] linaclotide Yes Take by [facility] 290 mcg Cap 3-23 [facility]: Once daily Medical 11 Center carBAMazepi Yes 100mg Take [address] ne 3-23 mg by [facility] (TEGRETOL) 10:15: mouth Medica l 200 mg 11 daily as Center tablet needed . dalfampridi Yes walking Take by [facility] ne (AMPYRA) 3-23 impairment mouth [facility] 10 mg Tb12 10:15: due to every 12 M edical 11 multiple (twelve) Center sclerosis hours Every 12 hours . metoprolol Yes 25mg QD Take [address] (TOPROL-XL) 3-23 by mouth [facility] 25 MG 24 hr 10:15: daily. Medi carmelina tablet 11 12.5 (ON Center HOLD X [address] PER PT) baclofen Yes 30mg [id number] Take [address] [facility] (LIORESAL) 3-23 [id number] by mouth 3 [facility] 10 MG 10:15: 3D (three) Medical tablet 11 times Center daily . lubiproston Yes 24ug Q.5D Take [address] [facility] e (AMITIZA) 3-23 mcg by [facility] 24 MCG 10:15: mouth 2 Medical capsule 11 (two) Center times daily. multivitami Yes 1{capsu QD Take [address] n capsule 3-23 le} capsule by [facility] 10:15: mouth Medical 11 daily. [place] calcium Yes 1{tbl} Take [address] [facility] carbonate-v 3-23 tablet by [facility] itamin D3 10:15: mouth 2 Medic al (CALCIUM- 11 (two) Center TAMIN D) times 500 daily with mg(1,250mg) breakfast -200 unit and per tablet dinner. ergocalcife Yes 1000U QD Take 1,[address] [facility] rol, 3-23 Units by [facility] vitamin D2, 10:15: mouth Medic al (VITAMIN 11 daily. [place] D2) 1,000 unit Cap ascorbic Yes 1000mg QD Take 1,[address] acid, 3-23 mg by [facility] vitamin C, 10:15: mouth Medica l (VITAMIN C) 11 daily. [place] 1000 MG tablet b complex Yes 1{capsu QD Take [address] [facility] vitamins 3-23 le} capsule by [employer] capsule 10:15: mouth Medical 11 daily. [place] cyanocobala Yes 1000ug QD Take 1,[address] [facility] min 3-23 mcg by [facility] (VITAMIN 10:15: mouth Medical B-12) 1000 11 daily. Center MCG tablet omega-3 Yes 2g Q.5D Take [address] [facility] acid ethyl 3-23 by mouth 2 [facility] esters 10:15: (two) Medical (LOVAZA) 1 11 times Center gram daily. capsule ofatumumab Yes Inject [facility] (KESIMPTA 3-23 subcutaneo [facility] PEN SUBQ) 10:15: usly every Me dical 11 30 Center (thirty) days. diclofenac Yes 25mg QD Take [address] (VOLTAREN) 3-23 by mouth [facility] 25 MG EC 10:15: daily . Medica l tablet 11 [place] DULoxetine Yes 30mg QD Take [address] (CYMBALTA) 3-23 by mouth [facility] 30 MG 10:15: daily. Medical capsule 11 [place] traMADoL Yes 50mg Take [address] [facility] (ULTRAM) 50 3-23 by mouth [facility] mg tablet 10:15: every 6 Medic al 11 (six) Center hours as needed for Pain. mirabegron Yes QD Take by [facility] (Myrbetriq) 3-23 [facility] 50 mg Tb24 10:15: daily. Medic al ER tablet 11 [place] ibuprofen Yes 200mg Take [address] [facility] (ADVIL,MOTR 3-23 mg by [facility] IN) 200 MG 10:15: mouth Medica l tablet 11 every 6 Center (six) hours as needed for Pain. dronabinoL Yes 2.5mg Take 2.[address] (MARINOL) 3-23 mg by [facility] 2.5 MG 10:15: mouth 2 Medical capsule 11 (two) Center times daily before meals. methylnaltr Yes Take by [facility] exone 3-23 [facility]. [facility] bromide 10:15: Medical (RELISTOR 11 Center ORAL) naloxegol Yes Take by [facility] oxalate 3-23 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 metoprolol Yes 25mg Take [address] tartrate 3-23 by mouth . [facility] (LOPRESSOR) 10:15: Medica l 25 MG 11 Center tablet gabapentin Yes 400mg Take [address] [facility] [address] [facility] (NEURONTIN) 3-23 mg by [facility] 600 MG 10:15: mouth. Medical tablet 11 Center polyethylen Yes 17g Take [address] e glycol 3-23 by mouth [facility] (GLYCOLAX) 10:15: as needed. M edical 17 gram 11 Center packet oxyCODONE Yes 5mg Take [address] [facility] (OXY-IR) 5 3-23 by mouth [facility] mg capsule 10:15: every 4 Medi carmelina 11 (four) Center hours as needed. fesoterodin Yes 4mg QD Take [address] e (TOVIAZ) 3-23 by mouth [facility] 4 mg 24 hr 10:15: daily. Medic al tablet 11 Center linaclotide Yes Take by [facility] 290 mcg Cap 3-23 [facility]. [facility] 10:15: Once daily Medical 11 Center carBAMazepi 0 Yes 100mg Take [address] ne 3-23 mg by [facility] (TEGRETOL) 10:15: mouth Medica l 200 mg 11 daily as Center tablet needed . dalfampridi 0 Yes walking Take by [facility] ne (AMPYRA) 3-23 impairment mouth [facility] 10 mg Tb12 10:15: due to every 12 M edical 11 multiple (twelve) Center sclerosis hours Every 12 hours . metoprolol Yes 25mg QD Take [address] (TOPROL-XL) 3-23 by mouth [facility] 25 MG 24 hr 10:15: daily. Medi [place]mel[place] tablet 11 12.5 (ON Center HOLD X [address] PER PT) baclofen Yes 30mg Q.[id number] Take [address] [facility] (LIORESAL) 3-23 [id number] by mouth 3 [facility] 10 MG 10:15: 3D (three) Medical tablet 11 times Center daily . lubiproston Yes 24ug Q.5D Take [address] [facility] (AMITIZA) 3-23 mcg by [facility] 24 MCG 10:15: mouth 2 Medical capsule 11 (two) Center times daily. multivitami Yes 1{capsu QD Take [address] n capsule 3-23 le} capsule by [facility] 10:15: mouth Medical 11 daily. [place] calcium Yes 1{tbl} Take [address] [facility] carbonate-v 3-23 tablet by [facility] itamin D3 10:15: mouth 2 Medic al (CALCIUM- 11 (two) Center TAMIN D) times 500 daily with mg(1,250mg) breakfast -200 unit and per tablet dinner. ergocalcife Yes 1000U QD Take 1,[address] [facility] rol, 3-23 Units by [facility] vitamin D2, 10:15: mouth Medic al (VITAMIN 11 daily. Center D2) 1,000 unit Cap ascorbic Yes 1000mg QD Take 1,[address] acid, 3-23 mg by [employer] vitamin C, 10:15: mouth Medica l (VITAMIN C) 11 daily. Center 1000 MG tablet b complex Yes 1{capsu QD Take [address] [facility] vitamins 3-23 le} capsule by [facility] capsule 10:15: mouth Medical 11 daily. [place] cyanocobala Yes 1000ug QD Take 1,[address] [facility] min 3-23 mcg by [facility] (VITAMIN 10:15: mouth Medical B-12) 1000 11 daily. Center MCG tablet omega-3 2022-0 Yes 2g Q.5D Take [address] [facility] acid ethyl -23 by mouth 2 [facility] esters 10:15: (two) Medical (LOVAZA) 1 11 times Center gram daily. capsule ofatumumab Yes Inject [facility] (KESIMPTA 3-23 subcutaneo [facility] PEN SUBQ) 10:15: usly every Me dical 11 30 Center (thirty) days. diclofenac Yes 25mg QD Take [address] (VOLTAREN) 3-23 by mouth [facility] 25 MG EC 10:15: daily . Medica l tablet 11 Center DULoxetine Yes 30mg QD Take [address] (CYMBALTA) 3-23 by mouth [facility] 30 MG 10:15: daily. Medical capsule 11 Center traMADoL Yes 50mg Take [address] [facility] (ULTRAM) 50 -23 by mouth [facility] mg tablet 10:15: every 6 Medic al 11 (six) Center hours as needed for Pain. mirabegron Yes QD Take by [facility] (Myrbetriq) 3-23 [facility] 50 mg Tb24 10:15: daily. Medic al ER tablet 11 [place] ibuprofen Yes 200mg Take [address] [facility] (ADVIL,MOTR 3-23 mg by [facility] IN) 200 MG 10:15: mouth Medica l tablet 11 every 6 Center (six) hours as needed for Pain. dronabinoL Yes 2.5mg Take 2.[address] (MARINOL) 3-23 mg by [facility] 2.5 MG 10:15: mouth 2 Medical capsule 11 (two) Center times daily before meals. methylnaltr Yes Take by [facility] exone 3-23 [facility]. [facility] bromide 10:15: Medical (RELISTOR 11 Center ORAL) naloxegol Yes Take by [facility] oxalate 3- [facility]. 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 metoprolol Yes 25mg Take [address] tartrate 3-23 by mouth . [facility] (LOPRESSOR) 10:15: Medica l 25 MG 11 Center tablet gabapentin Yes 400mg Take [address] (NEURONTIN) 3-23 mg by [facility] 600 MG 10:15: mouth. Medical tablet 11 Center polyethylen 0 Yes 17g Take [address] e glycol 3-23 by mouth [facility] (GLYCOLAX) 10:15: as needed. M edical 17 gram 11 Center packet oxyCODONE Yes 5mg Take [address] [facility] (OXY-IR) 5 3-23 by mouth [facility] mg capsule 10:15: every 4 Medi carmelina 11 (four) Center hours as needed. fesoterodin Yes 4mg QD Take [address] e (TOVIAZ) 3-23 by mouth [facility] 4 mg 24 hr 10:15: daily. Medic al tablet 11 Center linaclotide Yes Take by [facility] 290 mcg Cap 3-23 [facility]. [facility] 10:15: Once daily Medical 11 Center carBAMazepi Yes 100mg Take [address] ne 3-23 mg by [facility] (TEGRETOL) 10:15: mouth Medica l 200 mg 11 daily as Center tablet needed . dalfampridi Yes walking Take by [facility] ne (AMPYRA) 3-23 impairment mouth [facility] 10 mg Tb12 10:15: due to every 12 M edical 11 multiple (twelve) Center sclerosis hours Every 12 hours . metoprolol Yes 25mg QD Take [address] (TOPROL-XL) 3-23 by mouth [facility] 25 MG 24 hr 10:15: daily. Medi [place] tablet 11 12.5 (ON Center HOLD X [address] PER PT) baclofen 0 Yes 30mg Q.[id number] Take [address] [facility] (LIORESAL) 3-23 [id number] by mouth 3 [facility] 10 MG 10:15: 3D (three) Medical tablet 11 times Center daily . lubiproston 0 Yes 24ug Q.5D Take [address] [facility] (AMITIZA) 3-23 mcg by [facility] 24 MCG 10:15: mouth 2 Medical capsule 11 (two) Center times daily. multivitami 2022-0 Yes 1{capsu QD Take [address] n capsule 3-23 le} capsule by [facility] 10:15: mouth Medical 11 daily. [place] calcium Yes 1{tbl} Take [address] [facility] carbonate-v 3-23 tablet by [facility] itamin D3 10:15: mouth 2 Medic al (CALCIUM- 11 (two) Center TAMIN D) times 500 daily with mg(1,250mg) breakfast -200 unit and per tablet dinner. ergocalcife Yes 1000U QD Take 1,[address] [facility] rol, 3-23 Units by [facility] vitamin D2, 10:15: mouth Medic al (VITAMIN 11 daily. [place] D2) 1,000 unit Cap ascorbic Yes 1000mg QD Take 1,[address] acid, 3-23 mg by [facility] vitamin C, 10:15: mouth Medica l (VITAMIN C) 11 daily. [place] 1000 MG tablet b complex Yes 1{capsu QD Take [address] [facility] vitamins 3-23 le} capsule by [facility] capsule 10:15: mouth Medical 11 daily. [place] cyanocobala Yes 1000ug QD Take 1,[address] [facility] min 3-23 mcg by [facility] (VITAMIN 10:15: mouth Medical B-12) 1000 11 daily. [place] MCG tablet omega-3 Yes 2g Q.5D Take [address] [facility] acid ethyl 3-23 by mouth 2 [facility] esters 10:15: (two) Medical (LOVAZA) 1 11 times Center gram daily. capsule ofatumumab Yes Inject [facility] (KESIMPTA 3-[facility] subcut[facility]o [facility] PEN SUBQ) 10:15: usly every Me dical 11 30 Center (thirty) days. diclofenac Yes 25mg QD Take [address] (VOLTAREN) 3-23 by mouth [facility] 25 MG EC 10:15: daily . Medica l tablet 11 [place] DULoxetine Yes 30mg QD Take [address] (CYMBALTA) 3-23 by mouth [facility] 30 MG 10:15: daily. Medical capsule 11 Center traMADoL Yes 50mg Take [address] [facility] (ULTRAM) 50 3-23 by mouth [facility] mg tablet 10:15: every 6 Medic al 11 (six) Center hours as needed for Pain. mirabegron 0 Yes QD Take by [facility] (Myrbetriq) 3-23 [facility] 50 mg Tb24 10:15: daily. Medic al ER tablet 11 [place] ibuprofen Yes 200mg Take [address] [facility] (ADVIL,MOTR 3-23 mg by [facility] IN) 200 MG 10:15: mouth Medica l tablet 11 every 6 Center (six) hours as needed for Pain. dronabinoL Yes 2.5mg Take 2.[address] (MARINOL) 3-23 mg by [facility] 2.5 MG 10:15: mouth 2 Medical capsule 11 (two) Center times daily before meals. methylnaltr Yes Take by [facility] exone 3-23 mouth. [facility] bromide 10:15: Medical (RELISTOR 11 Center ORAL) naloxegol Yes Take by [facility] oxalate 3-23 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 metoprolol Yes 25mg Take [address] tartrate 3-23 by mouth . [facility] (LOPRESSOR) 10:15: Medica l 25 MG 11 [place] tablet gabapentin Yes 400mg Take [address] (NEURONTIN) 3-23 mg by [facility] 600 MG 10:15: mouth. Medical tablet 11 [place] polyethylen 0 Yes 17g Take [address] e glycol 3-23 by mouth [facility] (GLYCOLAX) 10:15: as needed. M edical 17 gram 11 [place] packet oxyCODONE Yes 5mg Take [address] [facility] (OXY-IR) 5 3-23 by mouth [facility] mg capsule 10:15: every 4 Medi carmelina 11 (four) Center hours as needed. fesoterodin 0 Yes 4mg QD Take [address] e (TOVIAZ) 3-23 by mouth [facility] 4 mg 24 hr 10:15: daily. Medic al tablet 11 [place] linaclotide 2022-0 Yes Take by [facility] 290 mcg Cap 3-23 [facility]. [facility] 10:15: Once daily Medical 11 Center carBAMazepi Yes 100mg Take [address] ne 3-23 mg by [facility] (TEGRETOL) 10:15: mouth Medica l 200 mg 11 daily as Center tablet needed . dalfampridi Yes walking Take by [facility] ne (AMPYRA) 3-23 impairment mouth [facility] 10 mg Tb12 10:15: due to every 12 M edical 11 multiple (twelve) Center sclerosis hours Every 12 hours . metoprolol Yes 25mg QD Take [address] (TOPROL-XL) 3-23 by mouth [facility] 25 MG 24 hr 10:15: daily. [facility]i [place] tablet 11 12.5 (ON Center HOLD X [address] PER PT) baclofen Yes 30mg Q.[id number] Take [address] [facility] (LIORESAL) 3-23 [id number] by mouth 3 [facility] 10 MG 10:15: 3D (three) Medical tablet 11 times Center daily . lubiproston Yes 24ug Q.5D Take [address] [facility] (AMITIZA) 3-23 mcg by [facility] 24 MCG 10:15: mouth 2 Medical capsule 11 (two) Center times daily. multivitami Yes 1{capsu QD Take [address] n capsule 3-23 le} capsule by [facility] 10:15: mouth Medical 11 daily. Center calcium Yes 1{tbl} Take [address] [facility] carbonate-v 3-23 tablet by [facility] itamin D3 10:15: mouth 2 Medic al (CALCIUM- 11 (two) Center TAMIN D) times 500 daily with mg(1,250mg) breakfast -200 unit and per tablet dinner. ergocalcife Yes 1000U QD Take 1,[address] [facility] rol, 3-23 Units by [facility] vitamin D2, 10:15: mouth Medic al (VITAMIN 11 daily. Center D2) 1,000 unit Cap ascorbic Yes 1000mg QD Take 1,[address] acid, 3-23 mg by [employer] vitamin C, 10:15: mouth Medica l (VITAMIN C) 11 daily. Center 1000 MG tablet b complex Yes 1{capsu QD Take [address] [facility] vitamins 3-23 le} capsule by [facility] capsule 10:15: mouth Medical 11 daily. [place] cyanocobala Yes 1000ug QD Take 1,[address] [facility] min 3-23 mcg by [facility] (VITAMIN 10:15: mouth Medical B-12) 1000 11 daily. Center MCG tablet omega-3 Yes 2g Q.5D Take [address] [facility] acid ethyl 3-23 by mouth 2 [facility] esters 10:15: (two) Medical (LOVAZA) 1 11 times Center gram daily. capsule ofatumumab Yes [facility]ject [facility] (KESIMPTA 3-23 subcut[facility]o [facility] PEN SUBQ) 10:15: usly every Me dical 11 30 Center (thirty) days. diclofenac Yes 25mg QD Take [address] (VOLTAREN) 3-23 by mouth [facility] 25 MG EC 10:15: daily . Medica l tablet 11 [place] DULoxetine Yes 30mg QD Take [address] (CYMBALTA) 3-23 by mouth [facility] 30 MG 10:15: daily. Medical capsule 11 [place] traMADoL Yes 50mg Take [address] [facility] (ULTRAM) 50 3-23 by mouth [facility] mg tablet 10:15: every 6 Medic al 11 (six) Center hours as needed for Pain. mirabegron Yes QD Take by [facility] (Myrbetriq) 3-23 [facility] 50 mg Tb24 10:15: daily. Medic al ER tablet 11 [place] ibuprofen Yes 200mg Take [address] [facility] (ADVIL,MOTR 3-23 mg by [facility] [place]) 200 MG 10:15: mouth Medica l tablet 11 every 6 Center (six) hours as needed for Pain. dronabinoL Yes 2.5mg Take 2.[address] (MARINOL) 3-23 mg by [facility] 2.5 MG 10:15: mouth 2 Medical capsule 11 (two) Center times daily before meals. methylnaltr Yes Take by [facility] exone 3-23 mouth. [facility] bromide 10:15: Medical (RELISTOR 11 Center ORAL) naloxegol 2022-0 Yes Take by [facility] oxalate 3-23 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 metoprolol Yes 25mg Take [address] tartrate 3-23 by mouth . [facility] (LOPRESSOR) 10:15: Medica l 25 MG 11 Center tablet gabapentin Yes 400mg Take [address] (NEURONTIN) 3-23 mg by [facility] 600 MG 10:15: mouth. Medical tablet 11 Center polyethylen Yes 17g Take [address] e glycol 3-23 by mouth [facility] (GLYCOLAX) 10:15: as needed. M edical 17 gram 11 Center packet oxyCODONE Yes 5mg Take [address] [facility] (OXY-IR) 5 3-23 by mouth [facility] mg capsule 10:15: every 4 Medi carmelina 11 (four) Center hours as needed. fesoterodin Yes 4mg QD Take [address] e (TOVIAZ) 3-23 by mouth [facility] 4 mg 24 hr 10:15: daily. Medic al tablet 11 Center linaclotide Yes Take by [facility] 290 mcg Cap 3-23 mouth. [facility] 10:15: Once daily Medical 11 Center carBAMazepi Yes 100mg Take [address] ne 3-23 mg by [facility] (TEGRETOL) 10:15: mouth Medica l 200 mg 11 daily as Center tablet needed . dalfampridi Yes walking Take by [facility] ne (AMPYRA) 3-23 impairment mouth [facility] 10 mg Tb12 10:15: due to every 12 M edical 11 multiple (twelve) Center sclerosis hours Every 12 hours . metoprolol Yes 25mg QD Take [address] (TOPROL-XL) 3-23 by mouth [facility] 25 MG 24 hr 10:15: daily. Medi [facility]mel[facility] tablet 11 12.5 (ON Center HOLD X [address] PER PT) baclofen 0 Yes 30mg Q.[id number] Take [address] [facility] (LIORESAL) 3-23 [id number] by mouth 3 [facility] 10 MG 10:15: 3D (three) Medical tablet 11 times Center daily . lubiproston Yes 24ug Q.5D Take [address] [facility] (AMITIZA) 3-23 mcg by [facility] 24 MCG 10:15: mouth 2 Medical capsule 11 (two) Center times daily. multivitami Yes 1{capsu QD Take [address] n capsule 3-23 le} capsule by [facility] 10:15: mouth Medical 11 daily. Center calcium Yes 1{tbl} Take [address] [facility] carbonate-v 3-23 tablet by [facility] itamin D3 10:15: mouth 2 Medic al (CALCIUM- 11 (two) Center TAMIN D) times 500 daily with mg(1,250mg) breakfast -200 unit and per tablet dinner. ergocalcife Yes 1000U QD Take 1,[address] [facility] rol, 3-23 Units by [employer] vitamin D2, 10:15: mouth Medic al (VITAMIN 11 daily. Center D2) 1,000 unit Cap ascorbic Yes 1000mg QD Take 1,[address] acid, 3-23 mg by [employer] vitamin C, 10:15: mouth Medica l (VITAMIN C) 11 daily. Center 1000 MG tablet b complex Yes 1{capsu QD Take [address] [facility] vitamins 3-23 le} capsule by [facility] capsule 10:15: mouth Medical 11 daily. [place] cyanocobala Yes 1000ug QD Take 1,[address] [facility] min 3-23 mcg by [employer] (VITAMIN 10:15: mouth Medical B-12) 1000 11 daily. Center MCG tablet omega-3 Yes 2g Q.5D Take [address] [facility] acid ethyl 3-23 by mouth 2 [facility] esters 10:15: (two) Medical (LOVAZA) 1 11 times Center gram daily. capsule ofatumumab Yes [facility]ject [facility] (KESIMPTA 3-23 subcutaneo [facility] PEN SUBQ) 10:15: usly every Me dical 11 30 Center (thirty) days. diclofenac Yes 25mg QD Take [address] (VOLTAREN) 3-23 by mouth [facility] 25 MG EC 10:15: daily . Medica l tablet 11 [place] DULoxetine Yes 30mg QD Take [address] (CYMBALTA) 3-23 by mouth [facility] 30 MG 10:15: daily. Medical capsule 11 Center traMADoL Yes 50mg Take [address] [facility] (ULTRAM) 50 3-23 by mouth [facility] mg tablet 10:15: every 6 Medic al 11 (six) Center hours as needed for Pain. mirabegron 0 Yes QD Take by [facility] (Myrbetriq) 3-23 [facility] 50 mg Tb24 10:15: daily. Medic al ER tablet 11 [place] ibuprofen Yes 200mg Take [address] [facility] (ADVIL,MOTR 3-23 mg by [facility] IN) 200 MG 10:15: mouth Medica l tablet 11 every 6 Center (six) hours as needed for Pain. dronabinoL Yes 2.5mg Take 2.[address] (MARINOL) 3-23 mg by [facility] 2.5 MG 10:15: mouth 2 Medical capsule 11 (two) Center times daily before meals. methylnaltr 0 Yes Take by [facility] exone 3-23 mouth. [facility] bromide 10:15: Medical (RELISTOR 11 Center ORAL) naloxegol 0 Yes Take by [facility] oxalate 3-23 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 metoprolol Yes 25mg Take [address] tartrate 3-23 by mouth . [facility] (LOPRESSOR) 10:15: Medica l 25 MG 11 [place] tablet gabapentin Yes 400mg Take [address] (NEURONTIN) 3-23 mg by [facility] 600 MG 10:15: mouth. Medical tablet 11 [place] polyethylen 0 Yes 17g Take [address] e glycol 3-23 by mouth [facility] (GLYCOLAX) 10:15: as needed. M edical 17 gram 11 [place] packet oxyCODONE 2022-0 Yes 5mg Take [address] [facility] (OXY-IR) 5 3-23 by mouth [facility] mg capsule 10:15: every 4 Medi carmelina 11 (four) Center hours as needed. fesoterodin Yes 4mg QD Take [address] e (TOVIAZ) 3-23 by mouth [facility] 4 mg 24 hr 10:15: daily. Medic al tablet 11 Center linaclotide Yes Take by [facility] 290 mcg Cap 3-23 mouth. [facility] 10:15: Once daily Medical 11 Center carBAMazepi Yes 100mg Take [address] ne 3-23 mg by [facility] (TEGRETOL) 10:15: mouth Medica l 200 mg 11 daily as Center tablet needed . dalfampridi Yes walking Take by [facility] ne (AMPYRA) 3-23 impairment mouth [facility] 10 mg Tb12 10:15: due to every 12 M edical 11 multiple (twelve) Center sclerosis hours Every 12 hours . metoprolol Yes 25mg QD Take [address] (TOPROL-XL) 3-23 by mouth [facility] 25 MG 24 hr 10:15: daily. Medi carmel[facility] tablet 11 12.5 (ON Center HOLD X [address] PER PT) baclofen Yes 30mg Q.[id number] Take [address] [facility] (LIORESAL) 3-23 [id number] by mouth 3 [facility] 10 MG 10:15: 3D (three) Medical tablet 11 times Center daily . lubiproston Yes 24ug Q.5D Take [address] [facility] (AMITIZA) 3-23 mcg by [facility] 24 MCG 10:15: mouth 2 Medical capsule 11 (two) Center times daily. multivitami Yes 1{capsu QD Take [address] n capsule 3-23 le} capsule by [facility] 10:15: mouth Medical 11 daily. Center calcium Yes 1{tbl} Take [address] [facility] carbonate-v 3-23 tablet by [facility] itamin D3 10:15: mouth 2 Medic al (CALCIUM- 11 (two) Center TAMIN D) times 500 daily with mg(1,250mg) breakfast -200 unit and per tablet dinner. ergocalcife Yes 1000U QD Take 1,[address] [facility] rol, 3-23 Units by [employer] vitamin D2, 10:15: mouth Medic al (VITAMIN 11 daily. [place] D2) 1,000 unit Cap ascorbic Yes 1000mg QD Take 1,[address] acid, 3-23 mg by [employer] vitamin C, 10:15: mouth Medica l (VITAMIN C) 11 daily. Center 1000 MG tablet b complex Yes 1{capsu QD Take [address] [facility] vitamins 3-23 le} capsule by [employer] capsule 10:15: mouth Medical 11 daily. [place] cyanocobala Yes 1000ug QD Take 1,[address] [facility] min 3-23 mcg by [employer] (VITAMIN 10:15: mouth Medical B-12) 1000 11 daily. [place] MCG tablet omega-3 Yes 2g Q.5D Take [address] [facility] acid ethyl 3-23 by mouth 2 [facility] esters 10:15: (two) Medical (LOVAZA) 1 11 times Center gram daily. capsule ofatumumab Yes Inject [facility] (KESIMPTA 3-23 subcut[facility]o [facility] PEN SUBQ) 10:15: usly every Me dical 11 30 Center (thirty) days. diclofenac Yes 25mg QD Take [address] (VOLTAREN) 3-23 by mouth [facility] 25 MG EC 10:15: daily . Medica l tablet 11 [place] DULoxetine Yes 30mg QD Take [address] (CYMBALTA) 3-23 by mouth [facility] 30 MG 10:15: daily. Medical capsule 11 [place] traMADoL Yes 50mg Take [address] [facility] (ULTRAM) 50 3-23 by mouth [facility] mg tablet 10:15: every 6 Medic al 11 (six) Center hours as needed for Pain. mirabegron Yes QD Take by [facility] (Myrbetriq) 3-23 [facility] 50 mg Tb24 10:15: daily. Medic al ER tablet 11 Center ibuprofen Yes 200mg Take [address] [facility] (ADVIL,MOTR 3-23 mg by [facility] IN) 200 MG 10:15: mouth Medica l tablet 11 every 6 Center (six) hours as needed for Pain. dronabinoL Yes 2.5mg Take 2.[address] (MARINOL) 3-23 mg by [facility] 2.5 MG 10:15: mouth 2 Medical capsule 11 (two) Center times daily before meals. methylnaltr Yes Take by [facility] exone 3-23 mouth. [facility] bromide 10:15: Medical (RELISTOR 11 Center ORAL) naloxegol Yes Take by [facility] oxalate 3-23 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 metoprolol Yes 25mg Take [address] tartrate 3-23 by mouth . [facility] (LOPRESSOR) 10:15: Medica l 25 MG 11 Center tablet gabapentin Yes 400mg Take [address] (NEURONTIN) 3-23 mg by [facility] 600 MG 10:15: mouth. Medical tablet 11 Center polyethylen Yes 17g Take [address] e glycol 3-23 by mouth [facility] (GLYCOLAX) 10:15: as needed. M edical 17 gram 11 [place] packet oxyCODONE Yes 5mg Take [address] [facility] (OXY-IR) 5 3-23 by mouth [facility] mg capsule 10:15: every 4 Medi carmelina 11 (four) Center hours as needed. fesoterodin Yes 4mg QD Take [address] e (TOVIAZ) 3-23 by mouth [facility] 4 mg 24 hr 10:15: daily. Medic al tablet 11 [place] linaclotide Yes Take by [facility] 290 mcg Cap 3-23 mouth. [facility] 10:15: Once daily Medical 11 Center carBAMazepi Yes 100mg Take [address] ne 3-23 mg by [facility] (TEGRETOL) 10:15: mouth Medica l 200 mg 11 daily as Center tablet needed . dalfampridi Yes walking Take by [facility] ne (AMPYRA) 3-23 impairment mouth [facility] 10 mg Tb12 10:15: due to every 12 M edical 11 multiple (twelve) Center sclerosis hours Every 12 hours . metoprolol Yes 25mg QD Take [address] (TOPROL-XL) 3-23 by mouth [facility] 25 MG 24 hr 10:15: daily. Medi carmelina tablet 11 12.5 (ON Center HOLD X [address] PER PT) baclofen Yes 30mg Q.[id number] Take [address] [facility] (LIORESAL) 3-23 [id number] by mouth 3 [facility] 10 MG 10:15: 3D (three) Medical tablet 11 times Center daily . lubiproston Yes 24ug Q.5D Take [address] [facility] (AMITIZA) 3-23 mcg by [facility] 24 MCG 10:15: mouth 2 Medical capsule 11 (two) Center times daily. multivitami Yes 1{capsu QD Take [address] n capsule 3-23 le} capsule by [facility] 10:15: mouth Medical 11 daily. [place] calcium Yes 1{tbl} Take [address] [facility] carbonate-v 3-23 tablet by [facility] itamin D3 10:15: mouth 2 Medic al (CALCIUM- 11 (two) Center TAMIN D) times 500 daily with mg(1,250mg) breakfast -200 unit and per tablet dinner. ergocalcife Yes 1000U QD Take 1,[address] [facility] rol, 3-23 Units by [facility] vitamin D2, 10:15: mouth Medic al (VITAMIN 11 daily. Center D2) 1,000 unit Cap ascorbic Yes 1000mg QD Take 1,[address] acid, 3-23 mg by [facility] vitamin C, 10:15: mouth Medica l (VITAMIN C) 11 daily. Center 1000 MG tablet b complex Yes 1{capsu QD Take [address] [facility] vitamins 3-23 le} capsule by [facility] capsule 10:15: mouth Medical 11 daily. [place] cyanocobala Yes 1000ug QD Take 1,[address] [facility] min 3-23 mcg by [facility] (VITAMIN 10:15: mouth Medical B-12) 1000 11 daily. Center MCG tablet omega-3 Yes 2g Q.5D Take [address] [facility] acid ethyl 3-23 by mouth 2 [facility] esters 10:15: (two) Medical (LOVAZA) 1 11 times Center gram daily. capsule ofatumumab Yes [facility]ject [facility] (KESIMPTA 08-26 subcutaneo [facility] PEN SUBQ) 10:15: usly every Me dical 11 30 Center (thirty) days. diclofenac 0 Yes 25mg QD Take [address] (VOLTAREN) - by mouth [facility] 25 MG EC 10:15: daily . Medica l tablet 11 Center DULoxetine Yes 30mg QD Take [address] (CYMBALTA) -23 by mouth [facility] 30 MG 10:15: daily. Medical capsule 11 Center traMADoL Yes 50mg Take [address] [facility] (ULTRAM) 50 08-26 by mouth [facility] mg tablet 10:15: every 6 Medic al 11 (six) Center hours as needed for Pain. mirabegron Yes QD Take by [facility] (Myrbetriq) 08-26 [facility] 50 mg Tb24 10:15: daily. Medic al ER tablet 11 [place] ibuprofen Yes 200mg Take [address] [facility] (ADVIL,MOTR 3-23 mg by [facility] IN) 200 MG 10:15: mouth Medica l tablet 11 every 6 Center (six) hours as needed for Pain. dronabinoL Yes 2.5mg Take 2.[address] [facility] (MARINOL) 3-23 mg by [facility] 2.5 MG 10:15: mouth 2 Medical capsule 11 (two) Center times daily before meals. methylnaltr Yes Take by [facility] exone 08-26 mouth. [facility] bromide 10:15: Medical (RELISTOR 11 Center ORAL) naloxegol Yes Take by [facility] oxalate 3- [facility]. [facility] (MOVANTIK 10:15: Medical ORAL) 11 Center Missing or Yes multiple 10mg QD Take [address] [facility] Non-Formula 3- sclerosis by mouth [facility] ry 10:15: daily Medical Medication 11 [place] [facility] 10mg every 12 hours . metoprolol Yes 25mg Take [address] tartrate 08-26 by mouth . [facility] (LOPRESSOR) 10:15: Medica l 25 MG 11 Center tablet gabapentin Yes 400mg Take [address] [facility] (NEURONTIN) 3-23 mg by [facility] 600 MG 10:15: mouth. Medical tablet 11 Center polyethylen Yes 17g Take [address] [facility] e glycol 3-23 by mouth [facility] (GLYCOLAX) 10:15: as needed. M edical 17 gram 11 Center packet oxyCODONE Yes 5mg Take [address] [facility] (OXY-IR) 5 3-23 by mouth [facility] mg capsule 10:15: every 4 Medi carmelina 11 (four) Center hours as needed. fesoterodin Yes 4mg QD Take [address] [facility] (TOVIAZ) 3-23 by mouth [facility] 4 mg 24 hr 10:15: daily. Medic al tablet 11 Center linaclotide Yes Take by [facility] 290 mcg Cap 3-23 [facility]. [facility] 10:15: Once daily Medical 11 [place] carBAMazepi Yes 100mg Take [address] ne 3-23 mg by [facility] (TEGRETOL) 10:15: mouth Medica l 200 mg 11 daily as Center tablet needed . dalfampridi Yes walking Take by [facility] (AMPYRA) 3-23 impairment mouth [facility] 10 mg Tb12 10:15: due to every 12 M edical 11 multiple (twelve) Center sclerosis hours Every 12 hours . metoprolol Yes 25mg QD Take [address] (TOPROL-XL) 3-23 by mouth [facility] 25 MG 24 hr 10:15: daily. [facility] carmelina tablet 11 12.5 (ON Center HOLD X [address] PER PT) baclofen Yes 30mg Q.[id number] Take [address] [facility] (LIORESAL) 3-23 [id number] by mouth 3 [facility] 10 MG 10:15: 3D (three) Medical tablet 11 times Center daily . lubiproston 0 Yes 24ug Q.5D Take [address] [facility] (AMITIZA) 3-23 mcg by [facility] 24 MCG 10:15: mouth 2 Medical capsule 11 (two) Center times daily. multivitami Yes 1{capsu QD Take [address] n capsule 3-23 le} capsule by [facility] 10:15: mouth Medical 11 daily. Center calcium Yes 1{tbl} Take [address] [facility] carbonate-v 3-23 tablet by [facility] itamin D3 10:15: mouth 2 Medic al (CALCIUM- 11 (two) Center TAMIN D) times 500 daily with mg(1,250mg) breakfast -200 unit and per tablet dinner. ergocalcife Yes 1000U QD Take 1,[address] [facility] rol, 3-23 Units by [employer] vitamin D2, 10:15: mouth Medic al (VITAMIN 11 daily. Center D2) 1,000 unit Cap ascorbic Yes 1000mg QD Take 1,[address] acid, 3-23 mg by [facility] vitamin C, 10:15: mouth Medica l (VITAMIN C) 11 daily. Center 1000 MG tablet b complex Yes 1{capsu QD Take [address] [facility] vitamins 3-23 le} capsule by [facility] capsule 10:15: mouth Medical 11 daily. [place] cyanocobala Yes 1000ug QD Take 1,[address] [facility] min 3-23 mcg by [employer] (VITAMIN 10:15: mouth Medical B-12) 1000 11 daily. [place] MCG tablet omega-3 Yes 2g Q.5D Take [address] [facility] acid ethyl 3-23 by mouth 2 [facility] esters 10:15: (two) Medical (LOVAZA) 1 11 times Center gram daily. capsule ofatumumab Yes [facility]ject [facility] (KESIMPTA 3-23 subcut[facility]o [facility] PEN SUBQ) 10:15: usly every Me dical 11 30 Center (thirty) days. diclofenac 0 Yes 25mg QD Take [address] (VOLTAREN) 3-23 by mouth [facility] 25 MG EC 10:15: daily . Medica l tablet 11 [place] DULoxetine Yes 30mg QD Take [address] (CYMBALTA) 3-23 by mouth [facility] 30 MG 10:15: daily. Medical capsule 11 Center traMADoL Yes 50mg Take [address] [facility] (ULTRAM) 50 3-23 by mouth [facility] mg tablet 10:15: every 6 Medic al 11 (six) Center hours as needed for Pain. mirabegron 0 Yes QD Take by [facility] (Myrbetriq) 3-23 [facility] 50 mg Tb24 10:15: daily. Medic al ER tablet 11 [place] ibuprofen Yes 200mg Take [address] [facility] (ADVIL,MOTR 3-23 mg by [facility] [place]) 200 MG 10:15: mouth Medica l tablet 11 every 6 Center (six) hours as needed for Pain. dronabinoL Yes 2.5mg Take 2.[address] (MARINOL) 3-23 mg by [facility] 2.5 MG 10:15: mouth 2 Medical capsule 11 (two) Center times daily before meals. methylnaltr Yes Take by [facility] exone 3- mouth. [facility] bromide 10:15: Medical (RELISTOR 11 Center ORAL) naloxegol Yes Take by [facility] oxalate 3-23 [facility] (MOVANTIK 10:15: Medical ORAL) 11 [place] Missing or Yes multiple 10mg QD Take [address] [facility] Non-Formula 3-23 sclerosis by mouth [facility] ry 10:15: daily Medical Medication 11 [place] [facility] 10mg every 12 hours . metoprolol Yes 25mg Take [address] tartrate 3-23 by mouth . [facility] (LOPRESSOR) 10:15: Medica l 25 MG 11 [place] tablet gabapentin Yes 400mg Take [address] (NEURONTIN) 3-23 mg by [facility] 600 MG 10:15: mouth. Medical tablet 11 [place] polyethylen Yes 17g Take [address] e glycol 3-23 by mouth [facility] (GLYCOLAX) 10:15: as needed. edical 17 gram 11 [place] packet oxyCODONE Yes 5mg Take [address] [facility] (OXY-IR) 5 3-23 by mouth [facility] mg capsule 10:15: every 4 Medi carmelina 11 (four) Center hours as needed. fesoterodin 0 Yes 4mg QD Take [address] [facility] (TOVIAZ) 3-23 by mouth [facility] 4 mg 24 hr 10:15: daily. Medic al tablet 11 [place] linaclotide Yes Take by [facility] 290 mcg Cap 3-23 [facility]. [facility] 10:15: Once daily Medical 11 Center carBAMazepi Yes 100mg Take [address] ne 3-23 mg by [facility] (TEGRETOL) 10:15: mouth Medica l 200 mg 11 daily as Center tablet needed . dalfampridi Yes walking Take by [facility] ne (AMPYRA) 3-23 impairment mouth [facility] 10 mg Tb12 10:15: due to every 12 M edical 11 multiple (twelve) Center sclerosis hours Every 12 hours . metoprolol Yes 25mg QD Take [address] (TOPROL-XL) 3-23 by mouth [facility] 25 MG 24 hr 10:15: daily. Medi [place] tablet 11 12.5 (ON Center HOLD X [address] PER PT) baclofen Yes 30mg Q.[id number] Take [address] [facility] (LIORESAL) 3-23 [id number] by mouth 3 [facility] 10 MG 10:15: 3D (three) Medical tablet 11 times Center daily . lubiproston Yes 24ug Q.5D Take [address] [facility] (AMITIZA) 3-23 mcg by [facility] 24 MCG 10:15: mouth 2 Medical capsule 11 (two) Center times daily. multivitami Yes 1{capsu QD Take [address] n capsule 3-23 le} capsule by [facility] 10:15: mouth Medical 11 daily. [place] calcium Yes 1{tbl} Take [address] [facility] carbonate-v 3-23 tablet by [facility] itamin D3 10:15: mouth 2 Medic al (CALCIUM- 11 (two) Center TAMIN D) times 500 daily with mg(1,250mg) breakfast -200 unit and per tablet dinner. ergocalcife Yes 1000U QD Take 1,[address] [facility] rol, 3-23 Units by [employer] vitamin D2, 10:15: mouth Medic al (VITAMIN 11 daily. Center D2) 1,000 unit Cap ascorbic Yes 1000mg QD Take 1,[address] acid, 3-23 mg by [employer] vitamin C, 10:15: mouth Medica l (VITAMIN C) 11 daily. Center 1000 MG tablet b complex Yes 1{capsu QD Take [address] [facility] vitamins 3-23 le} capsule by [facility] capsule 10:15: mouth Medical 11 daily. [place] cyanocobala Yes 1000ug QD Take 1,[address] [facility] min 3-23 mcg by [facility] (VITAMIN 10:15: mouth Medical B-12) 1000 11 daily. Center MCG tablet omega-3 Yes 2g Q.5D Take [address] [facility] acid ethyl 3-23 by mouth 2 [facility] esters 10:15: (two) Medical (LOVAZA) 1 11 times Center gram daily. capsule ofatumumab Yes Inject [facility] (KESIMPTA 3-[facility] PEN SUBQ) 10:15: usly every Me dical 11 30 Center (thirty) days. diclofenac Yes 25mg QD Take [address] (VOLTAREN) 3-23 by mouth [facility] 25 MG EC 10:15: daily . Medica l tablet 11 [place] DULoxetine Yes 30mg QD Take [address] (CYMBALTA) 3-23 by mouth [facility] 30 MG 10:15: daily. Medical capsule 11 Center traMADoL Yes 50mg Take [address] [facility] (ULTRAM) 50 3-23 by mouth [facility] mg tablet 10:15: every 6 Medic al 11 (six) Center hours as needed for Pain. mirabegron Yes QD Take by [facility] (Myrbetriq) 3-23 [facility] 50 mg Tb24 10:15: daily. Medic al ER tablet 11 [place] ibuprofen Yes 200mg Take [address] [facility] (ADVIL,MOTR 3-23 mg by [facility] IN) 200 MG 10:15: mouth Medica l tablet 11 every 6 Center (six) hours as needed for Pain. dronabinoL Yes 2.5mg Take 2.[address] (MARINOL) 3-23 mg by [facility] 2.5 MG 10:15: mouth 2 Medical capsule 11 (two) Center times daily before meals. methylnaltr Yes Take by [facility] exone 3-23 mouth. [facility] bromide 10:15: Medical (RELISTOR 11 Center ORAL) naloxegol Yes Take by [facility] oxalate 3-23 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 metoprolol Yes 25mg Take [address] tartrate 3-23 by mouth . [facility] (LOPRESSOR) 10:15: Medica l 25 MG 11 Center tablet gabapentin Yes 400mg Take [address] (NEURONTIN) 3-23 mg by [facility] 600 MG 10:15: mouth. Medical tablet 11 Center polyethylen Yes 17g Take [address] [facility] e glycol 3-23 by mouth [facility] (GLYCOLAX) 10:15: as needed. M edical 17 gram 11 Center packet oxyCODONE Yes 5mg Take [address] [facility] (OXY-IR) 5 3-23 by mouth [facility] mg capsule 10:15: every 4 Medi carmelina 11 (four) Center hours as needed. fesoterodin Yes 4mg QD Take [address] [facility] (TOVIAZ) 3-23 by mouth [facility] 4 mg 24 hr 10:15: daily. Medic al tablet 11 [place] linaclotide Yes Take by [facility] 290 mcg Cap 3-23 mouth. [facility] 10:15: Once daily Medical 11 Center carBAMazepi Yes 100mg Take [address] ne 3-23 mg by [facility] (TEGRETOL) 10:15: mouth Medica l 200 mg 11 daily as Center tablet needed . dalfampridi Yes walking Take by [facility] ne (AMPYRA) 3-23 impairment mouth [facility] 10 mg Tb12 10:15: due to every 12 M edical 11 multiple (twelve) Center sclerosis hours Every 12 hours . metoprolol Yes 25mg QD Take [address] (TOPROL-XL) 3-23 by mouth [facility] 25 MG 24 hr 10:15: daily. Medi carmel[place] tablet 11 12.5 (ON Center HOLD X [address] PER PT) baclofen 0 Yes 30mg Q.[id number] Take [address] [facility] (LIORESAL) 3-23 [id number] by mouth 3 [facility] 10 MG 10:15: 3D (three) Medical tablet 11 times Center daily . lubiproston Yes 24ug Q.5D Take [address] [facility] (AMITIZA) 3-23 mcg by [facility] 24 MCG 10:15: mouth 2 Medical capsule 11 (two) Center times daily. multivitami Yes 1{capsu QD Take [address] n capsule 3-23 le} capsule by [facility] 10:15: mouth Medical 11 daily. Center calcium Yes 1{tbl} Take [address] [facility] carbonate-v 3-23 tablet by [facility] itamin D3 10:15: mouth 2 Medic al (CALCIUM- 11 (two) Center TAMIN D) times 500 daily with mg(1,250mg) breakfast -200 unit and per tablet dinner. ergocalcife Yes 1000U QD Take 1,[address] [facility] [address] rol, 3-23 Units by [employer] vitamin D2, 10:15: mouth Medic al (VITAMIN 11 daily. Center D2) 1,000 unit Cap ascorbic Yes 1000mg QD Take 1,[address] acid, 3-23 mg by [employer] vitamin C, 10:15: mouth Medica l (VITAMIN C) 11 daily. Center 1000 MG tablet b complex Yes 1{capsu QD Take [address] [facility] vitamins 3-23 le} capsule by [facility] capsule 10:15: mouth Medical 11 daily. [place] cyanocobala Yes 1000ug QD Take 1,[address] [facility] min 3-23 mcg by [employer] (VITAMIN 10:15: mouth Medical B-12) 1000 11 daily. Center MCG tablet omega-3 Yes 2g Q.5D Take [address] [facility] acid ethyl 3-23 by mouth 2 [facility] esters 10:15: (two) Medical (LOVAZA) 1 11 times Center gram daily. capsule ofatumumab Yes [facility]ject [facility] (KESIMPTA 3-[address] [facility]cut[facility] PEN SUBQ) 10:15: usly every Me dical 11 30 Center (thirty) days. diclofenac Yes 25mg QD Take [address] (VOLTAREN) 3-23 by mouth [facility] 25 MG EC 10:15: daily . Medica l tablet 11 Center DULoxetine Yes 30mg QD Take [address] (CYMBALTA) 3-23 by mouth [facility] 30 MG 10:15: daily. Medical capsule 11 Center traMADoL Yes 50mg Take [address] [facility] (ULTRAM) 50 3-23 by mouth [facility] mg tablet 10:15: every 6 Medic al 11 (six) Center hours as needed for Pain. mirabegron Yes QD Take by [facility] (Myrbetriq) 3-23 [facility] 50 mg Tb24 10:15: daily. Medic al ER tablet 11 [place] ibuprofen Yes 200mg Take [address] [facility] (ADVIL,MOTR 3-23 mg by [facility] IN) 200 MG 10:15: mouth Medica l tablet 11 every 6 Center (six) hours as needed for Pain. dronabinoL Yes 2.5mg Take 2.[address] (MARINOL) 3-23 mg by [facility] 2.5 MG 10:15: mouth 2 Medical capsule 11 (two) Center times daily before meals. methylnaltr Yes Take by [facility] exone 3-23 mouth. [facility] bromide 10:15: Medical (RELISTOR 11 Center ORAL) naloxegol Yes Take by [facility] oxalate 3-23 [facility]. [facility] (MOVANTIK 10:15: Medical ORAL) 11 Center Missing or Yes multiple 10mg QD Take [address] [facility] Non-Formula 3-23 sclerosis by mouth [facility] ry 10:15: daily Medical Medication [place] Center 10mg every 12 hours . metoprolol Yes 25mg Take [address] tartrate 3-23 by mouth . [facility] (LOPRESSOR) 10:15: Medica l 25 MG 11 [place] tablet gabapentin Yes 400mg Take [address] (NEURONTIN) 3-23 mg by [facility] 600 MG 10:15: mouth. Medical tablet 11 Center polyethylen Yes 17g Take [address] e glycol 3-23 by mouth [facility] (GLYCOLAX) 10:15: as needed. M edical 17 gram 11 [place] packet oxyCODONE Yes 5mg Take [address] [facility] (OXY-IR) 5 3-23 by mouth [facility] mg capsule 10:15: every 4 Medi carmelina 11 (four) Center hours as needed. fesoterodin Yes 4mg QD Take [address] [facility] (TOVIAZ) 3-23 by mouth [facility] 4 mg 24 hr 10:15: daily. Medic al tablet 11 Center linaclotide Yes Take by [facility] 290 mcg Cap 3-23 mouth. [facility] 10:15: Once daily Medical 11 Center carBAMazepi Yes 100mg Take [address] ne 3-23 mg by [facility] (TEGRETOL) 10:15: mouth Medica l 200 mg 11 daily as Center tablet needed . dalfampridi Yes walking Take by [facility] ne (AMPYRA) 3-23 impairment mouth [facility] 10 mg Tb12 10:15: due to every 12 M edical 11 multiple (twelve) Center sclerosis hours Every 12 hours . metoprolol Yes 25mg QD Take [address] (TOPROL-XL) 3-23 by mouth [facility] 25 MG 24 hr 10:15: daily. Medi [place] tablet 11 12.5 (ON Center HOLD X [address] PER PT) baclofen Yes 30mg Q.[id number] Take [address] [facility] (LIORESAL) 3-23 [id number] by mouth 3 [facility] 10 MG 10:15: 3D (three) Medical tablet 11 times Center daily . lubiproston Yes 24ug Q.5D Take [address] [facility] (AMITIZA) 3-23 mcg by [facility] 24 MCG 10:15: mouth 2 Medical capsule 11 (two) Center times daily. multivitami Yes 1{capsu QD Take [address] n capsule 3-23 le} capsule by [facility] 10:15: mouth Medical 11 daily. [place] calcium Yes 1{tbl} Take [address] [facility] carbonate-v 3-23 tablet by [facility] itamin D3 10:15: mouth 2 Medic al (CALCIUM- 11 (two) Center TAMIN D) times 500 daily with mg(1,250mg) breakfast -200 unit and per tablet dinner. ergocalcife 0 Yes 1000U QD Take 1,[address] [facility] rol, 3-23 Units by [facility] vitamin D2, 10:15: mouth Medic al (VITAMIN 11 daily. [place] D2) 1,000 unit Cap ascorbic Yes 1000mg QD Take 1,[address] acid, 3-23 mg by [facility] vitamin C, 10:15: mouth Medica l (VITAMIN C) 11 daily. Center 1000 MG tablet b complex Yes 1{capsu QD Take [address] [facility] vitamins 3-23 le} capsule by [facility] capsule 10:15: mouth Medical 11 daily. [place] cyanocobala Yes 1000ug QD Take 1,[address] [facility] min 3-23 mcg by [facility] (VITAMIN 10:15: mouth Medical B-12) 1000 11 daily. [place] MCG tablet omega-3 Yes 2g Q.5D Take [address] [facility] acid ethyl 3-23 by mouth 2 [facility] esters 10:15: (two) Medical (LOVAZA) 1 11 times Center gram daily. capsule ofatumumab Yes [facility]ject [facility] (KESIMPTA 3-[facility] PEN SUBQ) 10:15: usly every Me dical 11 30 Center (thirty) days. diclofenac Yes 25mg QD Take [address] (VOLTAREN) 3-23 by mouth [facility] 25 MG EC 10:15: daily . Medica l tablet 11 [place] DULoxetine Yes 30mg QD Take [address] (CYMBALTA) 3-23 by mouth [facility] 30 MG 10:15: daily. Medical capsule 11 [place] traMADoL Yes 50mg Take [address] [facility] (ULTRAM) 50 3-23 by mouth [facility] mg tablet 10:15: every 6 Medic al 11 (six) Center hours as needed for Pain. mirabegron Yes QD Take by [facility] (Myrbetriq) 3-23 [facility] 50 mg Tb24 10:15: daily. Medic al ER tablet 11 [place] ibuprofen Yes 200mg Take [address] [facility] (ADVIL,MOTR 3-23 mg by [facility] IN) 200 MG 10:15: mouth Medica l tablet 11 every 6 Center (six) hours as needed for Pain. dronabinoL Yes 2.5mg Take 2.[address] (MARINOL) 3-23 mg by [facility] 2.5 MG 10:15: mouth 2 Medical capsule 11 (two) Center times daily before meals. methylnaltr Yes Take by [facility] exone 3-23 mouth. [facility] bromide 10:15: Medical (RELISTOR 11 Center ORAL) naloxegol Yes Take by [facility] oxalate 3-23 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 metoprolol Yes 25mg Take [address] tartrate 3-23 by mouth . [facility] (LOPRESSOR) 10:15: Medica l 25 MG 11 Center tablet gabapentin Yes 400mg Take [address] (NEURONTIN) 3-23 mg by [facility] 600 MG 10:15: mouth. Medical tablet 11 Center polyethylen Yes 17g Take [address] e glycol 3-23 by mouth [facility] (GLYCOLAX) 10:15: as needed. M edical 17 gram 11 Center packet oxyCODONE Yes 5mg Take [address] [facility] (OXY-IR) 5 3-23 by mouth [facility] mg capsule 10:15: every 4 Medi carmelina 11 (four) Center hours as needed. fesoterodin Yes 4mg QD Take [address] [facility] (TOVIAZ) 3-23 by mouth [facility] 4 mg 24 hr 10:15: daily. Medic al tablet 11 Center linaclotide Yes Take by [facility] 290 mcg Cap 3-23 mouth. [facility] 10:15: Once daily Medical 11 Center carBAMazepi Yes 100mg Take [address] ne 3-23 mg by [facility] (TEGRETOL) 10:15: mouth Medica l 200 mg 11 daily as Center tablet needed . dalfampridi Yes walking Take by [facility] ne (AMPYRA) 3-23 impairment mouth [facility] 10 mg Tb12 10:15: due to every 12 M edical 11 multiple (twelve) Center sclerosis hours Every 12 hours . metoprolol Yes 25mg QD Take [address] (TOPROL-XL) 3-23 by mouth [facility] 25 MG 24 hr 10:15: daily. Medi [place] tablet 11 12.5 (ON Center HOLD X [address] PER PT) baclofen Yes 30mg Q.[id number] Take [address] [facility] (LIORESAL) 3-23 [id number] by mouth 3 [facility] 10 MG 10:15: 3D (three) Medical tablet 11 times Center daily . lubiproston Yes 24ug Q.5D Take [address] [facility] [address] (AMITIZA) 3-23 mcg by [facility] 24 MCG 10:15: mouth 2 Medical capsule 11 (two) Center times daily. multivitami Yes 1{capsu QD Take [address] n capsule 3-23 le} capsule by [facility] 10:15: mouth Medical 11 daily. [place] calcium Yes 1{tbl} Take [address] [facility] carbonate-v 3-23 tablet by [facility] itamin D3 10:15: mouth 2 Medic al (CALCIUM- 11 (two) Center TAMIN D) times 500 daily with mg(1,250mg) breakfast -200 unit and per tablet dinner. ergocalcife Yes 1000U QD Take 1,[address] [address] rol, 3-23 Units by [employer] vitamin D2, 10:15: mouth Medic al (VITAMIN 11 daily. Center D2) 1,000 unit Cap ascorbic Yes 1000mg QD Take 1,[address] acid, 3-23 mg by [employer] vitamin C, 10:15: mouth Medica l (VITAMIN C) 11 daily. Center 1000 MG tablet b complex Yes 1{capsu QD Take [address] [facility] vitamins 3-23 le} capsule by [facility] capsule 10:15: mouth Medical 11 daily. [place] cyanocobala Yes 1000ug QD Take 1,[address] [facility] min 3-23 mcg by [facility] (VITAMIN 10:15: mouth Medical B-12) 1000 11 daily. Center MCG tablet omega-3 Yes 2g Q.5D Take [address] [facility] acid ethyl 3-23 by mouth 2 [facility] esters 10:15: (two) Medical (LOVAZA) 1 11 times Center gram daily. capsule ofatumumab Yes Inject [facility] (KESIMPTA 3-[facility] PEN SUBQ) 10:15: usly every Me dical 11 30 Center (thirty) days. diclofenac 0 Yes 25mg QD Take [address] (VOLTAREN) 3-23 by mouth [facility] 25 MG EC 10:15: daily . Medica l tablet 11 Center DULoxetine Yes 30mg QD Take [address] (CYMBALTA) 3-23 by mouth [facility] 30 MG 10:15: daily. Medical capsule 11 Center traMADoL Yes 50mg Take [address] [facility] (ULTRAM) 50 -23 by mouth [facility] mg tablet 10:15: every 6 Medic al 11 (six) Center hours as needed for Pain. mirabegron Yes QD Take by [facility] (Myrbetriq) 3-23 [facility] 50 mg Tb24 10:15: daily. Medic al ER tablet 11 [place] ibuprofen Yes 200mg Take [address] [facility] (ADVIL,MOTR 3-23 mg by [facility] IN) 200 MG 10:15: mouth Medica l tablet 11 every 6 Center (six) hours as needed for Pain. dronabinoL Yes 2.5mg Take 2.[address] (MARINOL) 3-23 mg by [facility] 2.5 MG 10:15: mouth 2 Medical capsule 11 (two) Center times daily before meals. methylnaltr Yes Take by [facility] exone 3-23 mouth. [facility] bromide 10:15: Medical (RELISTOR 11 Center ORAL) naloxegol Yes Take by [facility] oxalate 3-23 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 metoprolol Yes 25mg Take [address] tartrate 3-23 by mouth . [facility] (LOPRESSOR) 10:15: Medica l 25 MG 11 Center tablet gabapentin 2022-0 Yes 400mg Take [address] (NEURONTIN) 3-23 mg by [facility] 600 MG 10:15: mouth. Medical tablet 11 Center polyethylen Yes 17g Take [address] e glycol 3-23 by mouth [facility] (GLYCOLAX) 10:15: as needed. M edical 17 gram 11 Center packet oxyCODONE Yes 5mg Take [address] [facility] (OXY-IR) 5 3-23 by mouth [facility] mg capsule 10:15: every 4 Medi carmelina 11 (four) Center hours as needed. fesoterodin Yes 4mg QD Take [address] e (TOVIAZ) 3-23 by mouth [facility] 4 mg 24 hr 10:15: daily. Medic al tablet 11 Center linaclotide Yes Take by [facility] 290 mcg Cap 3-23 mouth. [facility] 10:15: Once daily Medical 11 Center carBAMazepi Yes 100mg Take [address] ne 3-23 mg by [facility] (TEGRETOL) 10:15: mouth Medica l 200 mg 11 daily as Center tablet needed . dalfampridi Yes walking Take by [facility] ne (AMPYRA) 3-23 impairment mouth [facility] 10 mg Tb12 10:15: due to every 12 M edical 11 multiple (twelve) Center sclerosis hours Every 12 hours . metoprolol Yes 25mg QD Take [address] (TOPROL-XL) 3-23 by mouth [facility] 25 MG 24 hr 10:15: daily. [facility] carmelina tablet 11 12.5 (ON Center HOLD X [address] PER PT) baclofen Yes 30mg Q.[id number] Take [address] [facility] (LIORESAL) 3-23 [id number] by mouth 3 [facility] 10 MG 10:15: 3D (three) Medical tablet 11 times Center daily . lubiproston Yes 24ug Q.5D Take [address] [facility] [address] (AMITIZA) 3-23 mcg by [facility] 24 MCG 10:15: mouth 2 Medical capsule 11 (two) Center times daily. multivitami Yes 1{capsu QD Take [address] n capsule 3-23 le} capsule by [facility] 10:15: mouth Medical 11 daily. [place] calcium Yes 1{tbl} Take [address] [facility] carbonate-v 3-23 tablet by [facility] itamin D3 10:15: mouth 2 Medic al (CALCIUM- 11 (two) Center TAMIN D) times 500 daily with mg(1,250mg) breakfast -200 unit and per tablet dinner. ergocalcife Yes 1000U QD Take 1,[address] [facility] [address] rol, 3-23 Units by [employer] vitamin D2, 10:15: mouth Medic al (VITAMIN 11 daily. Center D2) 1,000 unit Cap ascorbic Yes 1000mg QD Take 1,[address] acid, 3-23 mg by [employer] vitamin C, 10:15: mouth Medica l (VITAMIN C) 11 daily. [place] 1000 MG tablet b complex Yes 1{capsu QD Take [address] [facility] vitamins 3-23 le} capsule by [employer] capsule 10:15: mouth Medical 11 daily. [place] cyanocobala Yes 1000ug QD Take 1,[address] [facility] min 3-23 mcg by [employer] (VITAMIN 10:15: mouth Medical B-12) 1000 11 daily. [place] MCG tablet omega-3 Yes 2g Q.5D Take [address] [facility] acid ethyl 3-23 by mouth 2 Tamiko es esters 10:15: (two) Medical (LOVAZA) 1 11 times Center gram daily. capsule ofatumumab Yes [facility]ject [facility] (KESIMPTA 3-23 subcutaneo [facility] PEN SUBQ) 10:15: usly every Me dical 11 30 Center (thirty) days. diclofenac Yes 25mg QD Take [address] [facility] (VOLTAREN) 3-23 [facility] 25 MG EC 10:15: daily . Medica l tablet 11 [place] DULoxetine Yes 30mg QD Take [address] [facility] (CYMBALTA) 3-23 [facility] 30 MG 10:15: daily. Medical capsule 11 [place] traMADoL Yes 50mg Take [address] [facility] (ULTRAM) 50 3-23 by mouth [facility] mg tablet 10:15: every 6 Medic al 11 (six) Center hours as needed for Pain. mirabegron Yes QD Take by [facility] (Myrbetriq) 3-23 [facility] 50 mg Tb24 10:15: daily. Medic al ER tablet 11 Center ibuprofen Yes 200mg Take [address] [facility] (ADVIL,MOTR 3-23 mg by [facility] IN) 200 MG 10:15: mouth Medica l tablet 11 every 6 Center (six) hours as needed for Pain. dronabinoL Yes 2.5mg Take 2.[address] (MARINOL) 3-23 mg [facility] 2.5 MG 10:15: mouth 2 Medical capsule 11 (two) Center times daily before meals. methylnaltr Yes Take by [facility] exone 3-23 [facility]. [facility] bromide 10:15: Medical (RELISTOR 11 Center ORAL) naloxegol Yes Take by [facility] oxalate [facility]-23 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 metoprolol Yes 25mg Take [address] tartrate 3-23 by mouth . [facility] (LOPRESSOR) 10:15: Medica l 25 MG 11 Center tablet gabapentin Yes 400mg Take [address] (NEURONTIN) 3-23 mg by [facility] 600 MG 10:15: mouth. Medical tablet 11 Center polyethylen Yes 17g Take [address] [facility] e glycol 3-23 by [facility] (GLYCOLAX) 10:15: as needed. M edical 17 gram 11 Center packet oxyCODONE Yes 5mg Take [address] [facility] (OXY-IR) 5 3-23 by [facility] mg capsule 10:15: every 4 Medi carmelina 11 (four) Center hours as needed. oxyCODONE 2021- No [facility] (ROXICODONE 3-21 -31 st ) 5 MG 00:00: 00:00 Hospita immediate 00 :00 l release tablet oxyCODONE 2021- No [facility] (ROXICODONE 3-21 -31 st ) 5 MG 00:00: 00:00 Hospita immediate 00 :00 l release tablet oxyCODONE 2021- No [facility] (ROXICODONE 3-21 05-31 st ) 5 MG 00:00: 00:00 Hospita immediate 00 :00 l release tablet oxyCODONE 2021-2021- No [facility] (ROXICODONE 3-21 05-31 st ) 5 MG 00:00: 00:00 Hospita immediate 00 :00 l release tablet oxyCODONE 2021-0 2021- No [facility] (ROXICODONE 3-21 05-31 st ) 5 MG 00:00: 00:00 Hospita immediate 00 :00 l release tablet oxyCODONE 2021-0 2021- No [facility] (ROXICODONE 3-21 05-31 st ) 5 MG 00:00: 00:00 Hospita immediate 00 :00 l release tablet oxyCODONE 2021-0 2021- No [facility] (ROXICODONE 3-21 05-31 st ) 5 MG 00:00: 00:00 Hospita immediate 00 :00 l release tablet oxyCODONE 2021-2021- No [facility] (ROXICODONE 3-21 05-31 st ) 5 MG 00:00: 00:00 Hospita immediate 00 :00 l release tablet metoprolol 2021- No 12.5mg Q.5D Take 12.5 [facility] tartrate 3-11 03-[address] (LOPRESSOR) 11:33: 00:00 mouth 2 [facility] 25 mg 20 :00 (two) l tablet times a day. metoprolol 2021- No 12.5mg Q.5D Take 12.5 [facility] tartrate 3-11 03-[address] (LOPRESSOR) 11:33: 00:00 mouth 2 [facility] 25 mg 20 :00 (two) l tablet times a day. metoprolol 2021- No 12.5mg Q.5D Take 12.5 [facility] tartrate 3-11 03-[address] (LOPRESSOR) 11:33: 00:00 mouth 2 [facility] 25 mg 20 :00 (two) l tablet times a day. metoprolol 2021- No 12.5mg Q.5D Take 12.5 [facility] tartrate 3-11 03-[address] (LOPRESSOR) 11:33: 00:00 mouth 2 [facility] 25 mg 20 :00 (two) l tablet times a day. metoprolol 2021- No 12.5mg Q.5D Take 12.5 [facility] tartrate 3-11 03-[address] (LOPRESSOR) 11:33: 00:00 mouth 2 [facility] 25 mg 20 :00 (two) l tablet times a day. metoprolol 2021- No 12.5mg Q.5D Take 12.5 [facility] tartrate 3-11 03-[address] (LOPRESSOR) 11:33: 00:00 mouth 2 [facility] 25 mg 20 :00 (two) l tablet times a day. metoprolol 2021- No 12.5mg Q.5D Take 12.5 [facility] tartrate 3-11 03-[address] (LOPRESSOR) 11:33: 00:00 mouth 2 [facility] 25 mg 20 :00 (two) l tablet times a day. metoprolol 2021- No 12.5mg Q.5D Take 12.5 [facility] tartrate 3-11 03-[address] (LOPRESSOR) 11:33: 00:00 mouth 2 [facility] 25 mg 20 :00 (two) l tablet times a day. traMADoL 2021- [place] [id number] 50mg Q6H Take 1 [facility] (ULTRAM) 50 3-04 08-29 tablet (50 s t mg tablet 00:00: 00:00 mg total) Ho spita 00 :00 by mouth l every 6 (six) hours as needed for moderate pain for up to 30 days .chronic pain. traMADoL 2021-2021- [place] [id number] 50mg Q6H Take 1 [facility] (ULTRAM) 50 3-11 03-29 tablet (50 s t mg tablet 00:00: 00:00 mg total) Ho spita 00 :00 by mouth l every 6 (six) hours as needed for moderate pain for up to 30 days .chronic pain. [place]MADoL 2021-2021- [place] [id number] 50mg Q6H Take 1 [facility] (ULTRAM) 50 3-04 08-29 tablet (50 s t mg tablet 00:00: 00:00 mg total) [facility] spita 00 :00 by mouth l every 6 (six) hours as needed for moderate pain for up to 30 days .chronic pain. traMADoL 16501 50mg Q6H Take 1 [facility] (ULTRAM) 50 3-04 08-29 tablet (50 s t mg tablet 00:00: 00:00 mg total) Ho spita 00 :00 by mouth l every 6 (six) hours as needed for moderate pain for up to 30 days .chronic pain. traMADoL [id number] 50mg Q6H Take 1 [facility] (ULTRAM) 50 3-04 08-29 tablet (50 s t mg tablet 00:00: 00:00 mg total) Ho spita 00 :00 by mouth l every 6 (six) hours as needed for moderate pain for up to 30 days .chronic pain. traMADoL [id number] 50mg Q6H Take 1 [facility] (ULTRAM) 50 -04 08-29 tablet (50 s t mg tablet 00:00: 00:00 mg total) [facility] spita 00 :00 by mouth l every 6 (six) hours as needed for moderate pain for up to 30 days .chronic pain. traMADoL 28042 50mg Q6H Take 1 [facility] (ULTRAM) 50 -04 08-29 tablet (50 s t mg tablet 00:00: 00:00 mg total) [facility] spita 00 :00 by mouth l every 6 (six) hours as needed for moderate pain for up to 30 days .chronic pain. traMADoL [id number] 50mg Q6H Take 1 [facility] (ULTRAM) 50 3-04 08-29 tablet (50 s t mg tablet 00:00: 00:00 mg total) [facility] spita 00 :00 by mouth l every 6 (six) hours as needed for moderate pain for up to 30 days .chronic pain. HYDROcodone 25 1{tbl} Q8H Take 1 [facility] -acetaminop 3-06 08-[address] [facility] ([facility]) 00:00: 00:00 [facility] 10-325 mg 00 :00 every 8 l per tablet (eight) hours as needed for moderate pain for up to 30 days .chronic pain. Max Daily Amount: 3 tablets HYDROcodone 2022-0 2022- No [id number] 1{tbl} Q8H Take 1 [facility] -acetaminop 3-01 03-[address] [facility] ([employer]) 00:00: 00:00 mouth [facility] 10-325 mg 00 :00 every 8 l per tablet (eight) hours as needed for moderate pain for up to 30 days .chronic pain. Max Daily Amount: 3 tablets HYDROcodone 2022-0 2022- No [id number] 1{tbl} Q8H Take 1 [facility] -acetaminop 3-01 03-[address] [facility] ([employer]) 00:00: 00:00 [facility] 10-325 mg 00 :00 every 8 l per tablet (eight) hours as needed for moderate pain for up to 30 days .chronic pain. Max Daily Amount: 3 tablets HYDROcodone 2022-0 2022- [place] [id number] 1{tbl} Q8H Take 1 [facility] -acetaminop 3-01 03-[address] [facility] ([employer]) 00:00: 00:00 [facility] 10-325 mg 00 :00 every 8 l per tablet (eight) hours as needed for moderate pain for up to 30 days .chronic pain. Max Daily Amount: 3 tablets HYDROcodone 2022-0 2022- No [id number] 1{tbl} Q8H Take 1 [facility] -acetaminop 3- 03-[address] [employer] ([employer]) 00:00: 00:00 mouth [facility] 10-325 mg 00 :00 every 8 l per tablet (eight) hours as needed for moderate pain for up to 30 days .chronic pain. Max Daily Amount: 3 tablets HYDROcodone 2022-0 2022- No [id number] 1{tbl} Q8H Take 1 [facility] -acetaminop 3-01 03-[address] [facility] ([employer]) 00:00: 00:00 [facility] 10-325 mg 00 :00 every 8 l per tablet (eight) hours as needed for moderate pain for up to 30 days .chronic pain. Max Daily Amount: 3 tablets HYDROcodone 2022-0 2022- No [id number] 1{tbl} Q8H Take 1 [facility] -acetaminop 3-01 03-[address] [employer]) 00:00: 00:00 [facility] 10-325 mg 00 :00 every 8 l per tablet (eight) hours as needed for moderate pain for up to 30 days .chronic pain. Max Daily Amount: 3 tablets HYDROcodone [id number] 1{tbl} Q8H Take 1 [facility] -acetaminop 08-04-[address] [facility] ([employer]) 00:00: 00:00 [facility] 10-325 mg 00 :00 every 8 l per tablet (eight) hours as needed for moderate pain for up to 30 days .chronic pain. Max Daily Amount: 3 tablets traMADoL 2021- No [id number] 50mg Q6H Take 1 [facility] (ULTRAM) 50 08-04 03-10 tablet (50 s t mg tablet 00:00: 00:00 mg total) [facility]ita 00 :00 by mouth l every 6 (six) hours as needed for moderate pain for up to 30 days .chronic pain. traMADoL 2021- [id number] 50mg Q6H Take 1 [facility] (ULTRAM) 50 - 03-10 tablet (50 s t mg tablet 00:00: 00:00 mg total) [facility] 00 :00 by mouth l every 6 (six) hours as needed for moderate pain for up to 30 days .chronic pain. traMADoL 14640 50mg Q6H Take 1 [facility] (ULTRAM) 50 3- 03-10 tablet (50 s t mg tablet 00:00: 00:00 mg total) [facility] 00 :00 by mouth l every 6 (six) hours as needed for moderate pain for up to 30 days .chronic pain. traMADoL 2021- No [id number] 50mg Q6H Take 1 [facility] (ULTRAM) 50 3- 03-10 tablet (50 s t mg tablet 00:00: 00:00 mg total) [facility]ita 00 :00 by mouth l every 6 (six) hours as needed for moderate pain for up to 30 days .chronic pain. traMADoL 2021- No [id number] 50mg Q6H Take 1 [facility] (ULTRAM) 50 3- 03-10 tablet (50 s t mg tablet 00:00: 00:00 mg total) [facility]ita 00 :00 by mouth l every 6 (six) hours as needed for moderate pain for up to 30 days .chronic pain. traMADoL 2021- No [id number] 50mg Q6H Take 1 [facility] (ULTRAM) 50 3- 03-10 tablet (50 s t mg tablet 00:00: 00:00 mg total) [facility] 00 :00 by mouth l every 6 (six) hours as needed for moderate pain for up to 30 days .chronic pain. traMADoL 2021-2021- No [id number] 50mg Q6H Take 1 [facility] (ULTRAM) 50 3- 03-10 tablet (50 s t mg tablet 00:00: 00:00 mg total) [facility]ita 00 :00 by mouth l every 6 (six) hours as needed for moderate pain for up to 30 days .chronic pain. traMADoL 2021-2021- [place] [id number] 50mg Q6H Take 1 [facility] (ULTRAM) 50 3 03-10 tablet (50 s t mg tablet 00:00: 00:00 mg total) [facility] 00 :00 by mouth l every 6 (six) hours as needed for moderate pain for up to 30 days .chronic pain. ondansetron 2021- No 8mg Q8H Take 8 mg [facility] (ZOFRAN) 8 08-03-[address] MG tablet 00:00: 00:00 every 8 [facility] 00 :00 (eight) l hours as needed. ondansetron 2021-2021- No 8mg Q8H Take 8 mg [facility] (ZOFRAN) 8 08-03-[address] MG tablet 00:00: 00:00 every 8 [facility] 00 :00 (eight) l hours as needed. ondansetron 2021-0 2021- No 8mg Q8H Take 8 mg [facility] (ZOFRAN) 8 08-03-[address] MG tablet 00:00: 00:00 every 8 [facility] 00 :00 (eight) l hours as needed. ondansetron 2021-0 2021- No 8mg Q8H Take 8 mg [facility] (ZOFRAN) 8 08-03-[address] MG tablet 00:00: 00:00 every 8 [facility] 00 :00 (eight) l hours as needed. ondansetron 2021-0 2022- No 8mg Q8H Take 8 mg [facility] (ZOFRAN) 8 08-03-[address] MG tablet 00:00: 00:00 every 8 [facility] 00 :00 (eight) l hours as needed. ondansetron 2021-0 2022- No 8mg Q8H Take 8 mg [facility] (ZOFRAN) 8 08-03-[address] MG tablet 00:00: 00:00 every 8 [facility] 00 :00 (eight) l hours as needed. ondansetron 2021-0 2022- No 8mg Q8H Take 8 mg [facility] (ZOFRAN) 8 08-03-[address] MG tablet 00:00: 00:00 every 8 [facility] 00 :00 (eight) l hours as needed. ondansetron 2021-0 2022- No 8mg Q8H Take 8 mg [facility] (ZOFRAN) 8 08-03- by mouth st MG tablet 00:00: 00:00 every 8 [facility] 00 :00 (eight) l hours as needed. Myrbetriq 2022-0 2022- No 50mg QD Take 50 mg [facility] 50 mg 07-[address] tablet 00:00: 00:00 daily. Hospita extended 00 :00 l release 24 hr Myrbetriq 2022-0 2022- No 50mg QD Take 50 mg [facility] 50 mg 07-24- by mouth st tablet 00:00: 00:00 daily. Hospita extended 00 :00 l release 24 hr Myrbetriq 2022-0 2022- No 50mg QD Take 50 mg [facility] 50 mg 07-24- by mouth st tablet 00:00: 00:00 daily. Hospita extended 00 :00 l release 24 hr Myrbetriq 2022-0 2022- No 50mg QD Take 50 mg [facility] 50 mg 07-24- by mouth st tablet 00:00: 00:00 daily. Hospita extended 00 :00 l release 24 hr Myrbetriq 2022-0 2022- No 50mg QD Take 50 mg [facility] 50 mg 07-[address] tablet 00:00: 00:00 daily. Hospita extended 00 :00 l release 24 hr Myrbetriq 2022-0 2022- No 50mg QD Take 50 mg [facility] 50 mg 07-[address] tablet 00:00: 00:00 daily. Hospita extended 00 :00 l release 24 hr Myrbetriq 2022-0 2022- No 50mg QD Take 50 mg [facility] 50 mg 07-[address] tablet 00:00: 00:00 daily. Hospita extended 00 :00 l release 24 hr Myrbetriq 2-0 2022- No 50mg QD Take 50 mg [facility] 50 mg 07-[address] tablet 00:00: 00:00 daily. Hospita extended 00 :00 l release 24 hr venlafaxine 2-0 Yes 37.5mg QD Take 37.5 [facility] XR 2-[address] (EFFEXOR-XR 00:00: mouth [facility]pi ta ) 37.5 MG 00 daily. l 24 hr capsule venlafaxine 2-0 Yes 37.5mg QD Take 37.5 [facility] 2-[address] (EFFEXOR-XR 00:00: mouth Hospi ta ) 37.5 MG 00 daily. l 24 hr capsule venlafaxine 2022-0 Yes 37.5mg QD Take 37.5 [facility] 2-[address] (EFFEXOR-XR 00:00: mouth Hospi ta ) 37.5 MG 00 daily. l 24 hr capsule venlafaxine 2022-0 Yes 37.5mg QD Take 37.5 [facility] X[facility] 2-[address] (EFFEXOR-XR 00:00: mouth Hospi ta ) 37.5 MG 00 daily. l 24 hr capsule venlafaxine 2022-0 Yes 37.5mg QD Take 37.5 [facility] X[facility] 2-[address] (EFFEXOR-XR 00:00: mouth Hospi ta ) 37.5 MG 00 daily. l 24 hr capsule venlafaxine 2022-0 Yes 37.5mg QD Take 37.5 [facility] 2-[address] (EFFEXOR-XR 00:00: mouth Hospi ta ) 37.5 MG 00 daily. l 24 hr capsule venlafaxine Yes 37.5mg QD Take 37.5 [facility] XR 2-[address] (EFFEXOR-XR 00:00: mouth Hospi ta ) 37.5 MG 00 daily. l 24 hr capsule venlafaxine Yes 37.5mg QD Take 37.5 [facility] XR 2-[address] (EFFEXOR-XR 00:00: mouth Hospi ta ) 37.5 MG 00 daily. l 24 hr capsule venlafaxine 2022- No 37.5mg QD Take 1 M [facility] XR 2-14 04-[address] (EFFEXOR-XR 00:00: 00:00 (37.5 mg H ospita ) 37.5 MG 00 :00 total) by l 24 hr mouth capsule daily. meloxicam 2021- No 15mg [facility] 1 [facility] 15 07-01 02-10 tablet (15 [facility] MG tablet 00:00: 23:59 mg total) Me dical 00 :00 by mouth Center daily as needed for Pain for up to 15 days. meloxicam 2021- No 15mg Take 1 [facility] ([facility] 15 07-01 02-10 tablet (15 [facility] MG tablet 00:00: 23:59 mg total) Me dical 00 :00 by mouth Center daily as needed for Pain for up to 15 days. meloxicam 2021- No 15mg Take 1 [facility] (MOBIC) 15 07-01 02-10 tablet (15 [facility] MG tablet 00:00: 23:59 mg total) Me dical 00 :00 by mouth Center daily as needed for Pain for up to 15 days. meloxicam 2021- No 15mg Take 1 [facility] (MOBIC) 15 07-01 02-10 tablet (15 [facility] MG tablet 00:00: 23:59 mg total) Me dical 00 :00 by mouth Center daily as needed for Pain for up to 15 days. meloxicam 2021- No 15mg Take 1 [facility] (MOBIC) 15 07-01 02-10 tablet (15 [facility] MG tablet 00:00: 23:59 mg total) Me dical 00 :00 by mouth Center daily as needed for Pain for up to 15 days. meloxicam 2021- No 15mg Take 1 [facility] (MOBIC) 07-01-10 tablet (15 [facility] MG tablet 00:00: 23:59 mg total) Me dical 00 :00 by mouth Center daily as needed for Pain for up to 15 days. meloxicam 2021- No 15mg Take 1 [facility] (MOBIC) 15 07-01-10 tablet (15 [facility] MG tablet 00:00: 23:59 mg total) Me dical 00 :00 by mouth Center daily as needed for Pain for up to 15 days. meloxicam 2021- No 15mg Take 1 [facility] (MOBIC) 07-01-10 tablet (15 [facility] MG tablet 00:00: 23:59 mg total) Me dical 00 :00 by mouth Center daily as needed for Pain for up to 15 days. meloxicam 2021- No 15mg Take 1 [facility] (MOBIC) 07-0110 tablet (15 [facility] MG tablet 00:00: 23:59 mg total) Me dical 00 :00 by mouth Center daily as needed for Pain for up to 15 days. meloxicam 2021- No 15mg Take 1 [facility] (MOBIC) 07-0110 tablet (15 [facility] MG tablet 00:00: 23:59 mg total) Me dical 00 :00 by mouth Center daily as needed for Pain for up to 15 days. dronabinoL 2021- No [facility] (MARINOL) 06-15 st 2.5 MG 00:00: 00:00 Hospita capsule 00 :00 l dronabinoL 2021- No [facility] (MARINOL) 06-15 st 2.5 MG 00:00: 00:00 Hospita capsule 00 :00 l dronabinoL 2021- No [facility] (MARINOL) 06-15 st 2.5 MG 00:00: 00:00 Hospita capsule 00 :00 l dronabinoL 2021- No [facility] (MARINOL) 06-15 st 2.5 MG 00:00: 00:00 Hospita capsule 00 :00 l dronabinoL 2021- No [facility] (MARINOL) 06-15 st 2.5 MG 00:00: 00:00 Hospita capsule 00 :00 l dronabinoL 2021- No [facility] (MARINOL) 06-15 st 2.5 MG 00:00: 00:00 Hospita capsule 00 :00 l dronabinoL 2021- No [facility] (MARINOL) 06-15 st 2.5 MG 00:00: 00:00 Hospita capsule 00 :00 l dronabinoL 2021- No [facility] (MARINOL) 06-15 st 2.5 MG 00:00: 00:00 Hospita capsule 00 :00 l venlafaxine 2020-06 Yes 1{capsu QD Take [address] (EFFEXOR-XR 1-23 le} capsule by [facility] ) 37.5 MG 00:00: mouth Medical 24 hr 00 daily. Center capsule venlafaxine 2020-06 Yes 1{capsu QD Take [address] (EFFEXOR-XR 1-23 le} capsule by [facility] ) 37.5 MG 00:00: mouth Medical 24 hr 00 daily. Center capsule venlafaxine 2020-06 Yes 1{capsu QD Take [address] (EFFEXOR-XR 1-23 le} capsule by [facility] ) 37.5 MG 00:00: mouth Medical 24 hr 00 daily. Center capsule venlafaxine 2020-06 Yes 1{capsu QD Take [address] (EFFEXOR-XR 1-23 le} capsule by [facility] ) 37.5 MG 00:00: mouth Medical 24 hr 00 daily. Center capsule venlafaxine 2020-06 Yes 1{capsu QD Take [address] (EFFEXOR-XR 1-23 le} capsule by [facility] ) 37.5 MG 00:00: mouth Medical 24 hr 00 daily. Center capsule venlafaxine 2020-06 Yes 1{capsu QD Take [address] (EFFEXOR-XR 1-23 le} capsule by [facility] ) 37.5 MG 00:00: mouth Medical 24 hr 00 daily. [place] capsule venlafaxine 2020-06 Yes 1{capsu QD Take [address] (EFFEXOR-XR 1-23 le} capsule by [facility] ) 37.5 MG 00:00: mouth Medical 24 hr 00 daily. [place] capsule venlafaxine 2020-06 Yes 1{capsu QD Take [address] (EFFEXOR-XR 1-23 le} capsule by [facility] ) 37.5 MG 00:00: mouth Medical 24 hr 00 daily. [place] capsule venlafaxine 2020-06 Yes 1{capsu QD Take [address] (EFFEXOR-XR 1-23 le} capsule by [facility] ) 37.5 MG 00:00: mouth Medical 24 hr 00 daily. [place] capsule venlafaxine 2020-06 Yes 1{capsu QD Take [address] (EFFEXOR-XR 1-23 le} capsule by [facility] ) 37.5 MG 00:00: mouth Medical 24 hr 00 daily. [place] capsule venlafaxine 2020-06 Yes 1{capsu QD Take [address] (EFFEXOR-XR 1-23 le} capsule by [facility] ) 37.5 MG 00:00: mouth Medical 24 hr 00 daily. [place] capsule venlafaxine 2020-06 Yes 1{capsu QD Take [address] (EFFEXOR-XR 1-23 le} capsule by [facility] ) 37.5 MG 00:00: mouth Medical 24 hr 00 daily. [place] capsule venlafaxine 2020-06 Yes 1{capsu QD Take [address] (EFFEXOR-XR 1-23 le} capsule by [facility] ) 37.5 MG 00:00: mouth Medical 24 hr 00 daily. [place] capsule ondansetron 2020-06 No Route: IV, [facility] (ANES) 06-22 Drug form: l 22:52: INJ, ONCE, Stop date: 04/22/21 16:52:00 [place] ondansetron 2020-06 No Route: IV, [facility] (ANES) 06-22 Drug form: l 22:52: INJ, ONCE, Stop date: 04/22/21 16:52:00 [employer] [facility] ondansetron 2020-06 No Route: IV, [facility] (ANES) 1-17 Drug form: l 22:52: INJ, ONCE, Stop date: 04/22/21 16:52:00 [employer] [employer] phenylephri 2020-06 No Route: IV, Memoria ne (ANES) 1-17 Drug form: l 22:49: INJ, ONCE, Stop date: 04/22/21 16:49:00 [employer] [employer] phenylephri 2020-06 No Route: IV, [facility]oria ne (ANES) 1-17 Drug form: l 22:49: INJ, ONCE, Stop date: 04/22/21 16:49:00 [employer] [employer] phenylephri 2020-06 No Route: IV, Memoria ne (ANES) 1-17 Drug form: l 22:49: INJ, ONCE, Stop date: 04/22/21 16:49:00 [employer] [employer] ePHEDrine 2020-06 No Route: IV, Me moria (ANES) 1-17 Drug form: l 22:33: INJ, ONCE, Stop date: 04/22/21 16:33:00 [employer] [employer] ePHEDrine 2020-06 No Route: IV, Me moria (ANES) 1-17 Drug form: l 22:33: INJ, ONCE, Stop date: 04/22/21 16:33:00 [employer] [employer] ePHEDrine 2020-06 No Route: IV, Me moria (ANES) 1-17 Drug form: l 22:33: INJ, ONCE, Stop date: 04/22/21 16:33:00 [employer] [employer] lidocaine 2020-06 No Route: IV, Me moria (ANES) 1-17 Drug form: l 22:28: INJ, ONCE, Stop date: 04/22/21 16:28:00 [employer] [employer] fentaNYL 2020-06 No Route: IV, Mem oria (ANES) 1-17 Drug form: l 22:28: INJ, ONCE, Stop date: 04/22/21 16:28:00 [employer] propofol 2020-06 No Route: IV, Mem oria (ANES) 1-17 Drug form: l 22:28: INJ, ONCE, Stop date: 04/22/21 16:28:00 [employer] [employer] famotidine 2020-06 No Route: IV, M emoria (ANES) 1-17 Drug form: l 22:28: INJ, ONCE, Stop date: 04/22/21 16:28:00 [employer] [employer] lidocaine 2020-06 No Route: IV, Me moria (ANES) 1-17 Drug form: l 22:28: INJ, ONCE, Stop date: 04/22/21 16:28:00 [employer] [employer] fentaNYL 2020-06 No Route: IV, Mem oria (ANES) 1-17 Drug form: l 22:28: INJ, ONCE, Stop date: 04/22/21 16:28:00 [employer] [employer] propofol 2020-06 No Route: IV, Mem oria (ANES) 1-17 Drug form: l 22:28: INJ, ONCE, Stop date: 04/22/21 16:28:00 [employer] [employer] famotidine 2020-06 No Route: IV, M emoria (ANES) 1-17 Drug form: l 22:28: INJ, ONCE, Stop date: 04/22/21 16:28:00 [employer] [employer] lidocaine 2020-06 No Route: IV, Me moria (ANES) 1-17 Drug form: l 22:28: INJ, ONCE, Stop date: 04/22/21 16:28:00 [place] [employer] fentaNYL 2020-06 No Route: IV, Mem oria (ANES) 1-17 Drug form: l 22:28: INJ, ONCE, Stop date: 04/22/21 16:28:00 [employer] [employer] propofol 2020-06 No Route: IV, Mem oria (ANES) 1-17 Drug form: l 22:28: INJ, ONCE, Stop date: 04/22/21 16:28:00 [employer] famotidine 2020-06 No Route: IV, M emoria (ANES) 1-17 Drug form: l 22:28: INJ, ONCE, Stop date: 04/22/21 16:28:00 [employer] [employer] dexamethaso 2020-06 No Route: IV, Memoria ne (ANES) 1-17 Drug form: l 22:23: INJ, ONCE, Stop date: 04/22/21 16:23:00 [employer] [employer] dexamethaso 2020-06 No Route: IV, Memoria ne (ANES) 1-17 Drug form: l 22:23: INJ, ONCE, [place] 00 Stop date: 04/22/21 16:23:00 [employer] dexamethaso 2020-06 No Route: IV, Memoria ne (ANES) -17 Drug form: l 22:23: INJ, ONCE, Samuel Stop date: 04/22/21 16:23:00 [place] ceFAZolin 2020-06 No Route: IV, Me moria (ANES) 1-17 Drug form: l 22:13: INJ, ONCE, [place] 00 Stop date: 04/22/21 16:13:00 [place] ceFAZolin 2020-06 No Route: IV, Me moria (ANES) -17 Drug form: l 22:13: INJ, ONCE, Samuel 00 Stop date: 04/22/21 16:13:00 [place] ceFAZolin 2020-06 No Route: IV, Me moria (ANES) -17 Drug form: l 22:13: INJ, ONCE, Stop date: 04/22/21 16:13:00 [place] Sodium 2020-06 No 500 mL, Memoria Chloride -17 1500 l 0.9% 21:56: ml/hr, [place] (Bolus) IV 00 Infuse Over: 20 minutes, Route: IV, 500, Drug form: INJ, ONCE, Dosing Weight 64.545 kg, Start date: 04/22/21 15:56:00 [place], PRN Hypotensio n, Substitute Allowed Yes, 0.9% NS may be substitute d for LR or other IVF, 0 Hydralazine 2020-06 No Notes: Brien mora -17 (Same as: l 21:56: Apresoline [place] ) Push over 5 minutes Ketorolac 2020-06 No 4 days Memor ia -17 l 21:56: MEDICATION [place] 00 WASTE Product Size: 30 mg Product Wasted: 15 mg Acetaminoph 2020-06 No Notes: Max Memoria en 1-17 acetaminop l 21:56: hen 4000 Samuel 00 mg/day (4 gm/day). (Same as: Tylenol Extra Strength) Oxycodone 2020-06 No Notes: Memori a Hydrochlori 06-22 (Same as: l de 5 MG 21:56: Roxicodone Herm turner Oral Tablet ) Morphine 2020-06 No Notes: Memoria -17 (Same l 21:56: as:MORPhin [place] e Sulfate) Hydromorpho 2020-06 No Notes: Brien mora ne 06-22 Same as l 21:56: Dilaudid [place] 00 Naloxone 2020-06 No Notes: Memoria 06-22 Same as l 21:56: Narcan [place] 00 Albuterol 2020-06 No Notes: SEE Me moria 0.83 MG/ML 06-22 RT l Inhalant 21:56: DOCUMENTAT [employer] hammer Solution 00 ION (Same as: Proventil) Diphenhydra 2020-06 No Notes: Brien mora mine 17 (Same as: l 21:56: Benadryl) [place] 00 Meperidine 2020-06 No Notes: Memor ia 06-22 (Same as: l 21:56: Demerol) "Use Precaution in Elderly, Seizure disorders, and Renal impairment " Ondansetron 2020-06 No Notes: Brien mora -17 (Same as: l 21:56: Zofran) MEDICATION WASTE Product Size: 4 mg Product Wasted: ___ mg Promethazin 2020-06 No Notes: Do M emoria e 06-22 not give l 21:56: IV push. Samuel 00 (Same as: Phenergan) Methocarbam 2020-06 No Notes: Brien mora ol -17 (Same l 21:56: as:Robaxin Samuel ) Sodium 2020-06 No 500 mL, Memoria Chloride -17 1500 l 0.9% 21:56: ml/hr, [place] (Bolus) IV 00 Infuse Over: 20 minutes, Route: IV, 500, Drug form: INJ, ONCE, Dosing Weight 64.545 kg, Start date: 04/22/21 15:56:00 [place], PRN Hypotensio n, Substitute Allowed Yes, 0.9% NS may be substitute d for LR or other IVF, 0 Hydralazine 2020-06 No Notes: Brien mora -17 (Same as: l 21:56: Apresoline Samuel ) Push over 5 minutes Ketorolac 2020-06 No 4 days Memor ia 06-22 l 21:56: MEDICATION Samuel WASTE Product Size: 30 mg Product Wasted: 15 mg Acetaminoph 2020-06 No Notes: Max Memoria en 06-22 acetaminop l 21:56: hen 4000 [place] 00 mg/day (4 gm/day). (Same as: Tylenol Extra Strength) Oxycodone 2020-06 No Notes: Memori a Hydrochlori 06-22 (Same as: l de 5 MG 21:56: Roxicodone Herm turner Oral Tablet ) Morphine 2020-06 No Notes: Memoria 06-22 (Same l 21:56: as:MORPhin Samuel e Sulfate) Hydromorpho 2020-06 No Notes: Brien mora ne 06-22 Same as l 21:56: Dilaudid [place] 00 Naloxone 2020-06 No Notes: Memoria 06-22 Same as l 21:56: Narcan [place] 00 Albuterol 2020-06 No Notes: SEE Me moria 0.83 MG/ML 06-22 RT l Inhalant 21:56: DOCUMENTAT Her hammer Solution 00 ION (Same as: Proventil) Diphenhydra 2020-06 No Notes: Brien mora mine 06-22 (Same as: l 21:56: Benadryl) [place] 00 Meperidine 2020-06 No Notes: Memor ia 06-22 (Same as: l 21:56: Demerol) Samuel 00 "Use Precaution in Elderly, Seizure disorders, and Renal impairment " Ondansetron 2020-06 No Notes: Brien mora 17 (Same as: l 21:56: Zofran) [place] 00 MEDICATION WASTE Product Size: 4 mg Product Wasted: ___ mg Promethazin 2020-06 No Notes: Do M emoria e 06-22 not give l 21:56: IV push. [place] (Same as: Phenergan) Methocarbam 2020-06 No Notes: Brien mora ol 06-22 (Same l 21:56: as:Robaxin [place] ) Sodium 2020-06 No 500 mL, [facility] Chloride 06-22 1500 l 0.9% 21:56: ml/hr, [place] (Bolus) IV 00 Infuse Over: 20 minutes, Route: IV, 500, Drug form: INJ, ONCE, Dosing Weight 64.545 kg, Start date: 04/22/21 15:56:00 [place], PRN Hypotensio n, Substitute Allowed Yes, 0.9% NS may be substitute d for LR or other IVF, 0 Hydralazine 2020-06 No Notes: Brien mora 06-22 (Same as: l 21:56: Apresoline [place] 00 ) Push over 5 minutes Ketorolac 2020-06 No 4 days Memor ia 06-22 l 21:56: MEDICATION [place] 00 WASTE Product Size: 30 mg Product Wasted: 15 mg Acetaminoph 2020-06 No Notes: Max Memoria en 06-22 acetaminop l 21:56: hen 4000 Samuel 00 mg/day (4 gm/day). (Same as: Tylenol Extra Strength) Oxycodone 2020-06 No Notes: Memori a Hydrochlori 06-22 (Same as: l de 5 MG 21:56: Roxicodone Herm turner Oral Tablet 00 ) Morphine 2020-06 No Notes: Memoria 06-22 (Same l 21:56: as:MORPhin [place] 00 e Sulfate) Hydromorpho 2020-06 No Notes: Brien mora ne 06-22 Same as l 21:56: Dilaudid [place] 00 Naloxone 2020-06 No Notes: Memoria 06-22 Same as l 21:56: Narcan [place] Albuterol 2020-06 No Notes: SEE Me moria 0.83 MG/ML 06-22 RT l Inhalant 21:56: DOCUMENTAT Her hammer Solution 00 ION (Same as: Proventil) Diphenhydra 2020-06 No Notes: Brien mora mine 06-22 (Same as: l 21:56: Benadryl) Samuel 00 Meperidine 2020-06 No Notes: Memor ia 06-22 (Same as: l 21:56: Demerol) Samuel 00 "Use Precaution in Elderly, Seizure disorders, and Renal impairment " Ondansetron 2020-06 No Notes: Brien mora -17 (Same as: l 21:56: Zofran) Samuel 00 MEDICATION WASTE Product Size: 4 mg Product Wasted: ___ mg Promethazin 2020-06 No Notes: Do Kush bautistaa e 06-22 not give l 21:56: IV push. (Same as: Phenergan) Methocarbam 2020-06 No Notes: Brien mora ol 17 (Same l 21:56: as:Robaxin ) Lactated 2020-06 No Route: IV, Mem oria Ringers 1-17 Total l Injection 21:30: Volume: Jodi nn IV (ANES) 00 1,000, 1000 mL Start date: 04/22/21 15:30:00 [place], Stop date: 04/22/21 16:30:00 [place] Lactated 2020-06 No Route: IV, Mem oria Ringers 1-17 Total l Injection 21:30: Volume: Jodi nn IV (ANES) 00 1,000, 1000 mL Start date: 04/22/21 15:30:00 [place], Stop date: 04/22/21 16:30:00 [place] Lactated 2020-06 No Route: IV, Mem oria Ringers 1-17 Total l Injection 21:30: Volume: Jodi nn IV (ANES) 00 1,000, 1000 mL Start date: 04/22/21 15:30:00 [place], Stop date: 04/22/21 16:30:00 [place] Diclofenac 2020-06 Yes 25 mg = 1 Me moria Potassium 1-17 cap, PO, l 25 MG Oral 17:55: QID, 0 Jodi nn Capsule 00 Refill(s) Diclofenac 2020-06 Yes 25 mg = 1 Me moria Potassium 1-17 cap, PO, l 25 MG Oral 17:55: QID, 0 Jodi nn Capsule 00 Refill(s) Diclofenac 2020-06 Yes 25 mg = 1 Me moria Potassium 1-17 cap, PO, l 25 MG Oral 17:55: QID, 0 Jodi nn Capsule 00 Refill(s) ceFAZolin + 2020-06 No Notes: Brien mora sterile -17 (Same As: l water 20 mL 06:00: AncefAlva Kefzol) MEDICATION WASTE Product Size: 1000 mg Product Wasted: ___ mg ceFAZolin + 2020-06 No Notes: Brien mora sterile 1-17 (Same As: l water 20 mL 06:00: Ancef, Herm turner 00 Kefzol) MEDICATION WASTE Product Size: 1000 mg Product Wasted: ___ mg ceFAZolin + 2020-06 No Notes: Brien mora sterile 1-17 (Same As: l water 20 mL 06:00: Ancef, Herm turner 00 Kefzol) MEDICATION WASTE Product Size: 1000 mg Product Wasted: ___ mg duloxetine 2020-06 Yes 60 mg = 1 Me moria 60 MG 1-16 cap, PO, l Enteric 18:20: Daily, # Manny n Coated 00 30 cap, 1 Capsule Refill(s) [Cymbalta] 0.4 ML 2020-06 Yes 20 mg, Memoria ofatumumab 1-16 SUB-Q, l 50 MG/ML 18:20: qMonth, 0 Herm turner Pen 00 Refill(s) Injector [Kesimpta] duloxetine 2020-06 Yes 60 mg = 1 Me moria 60 MG 1-16 cap, PO, l Enteric 18:20: Daily, # Manny n Coated 00 30 cap, 1 Capsule Refill(s) [Cymbalta] 0.4 ML 2020-06 Yes 20 mg, [facility] ofatumumab 1-16 SUB-Q, l 50 MG/ML 18:20: qMonth, 0 Herm turner Pen 00 Refill(s) Injector [Kesimpta] duloxetine 2020-06 Yes 60 mg = 1 Me moria 60 MG 1-16 cap, PO, l Enteric 18:20: Daily, # Manny n Coated 00 30 cap, 1 Capsule Refill(s) [Cymbalta] 0.4 ML 2020-06 Yes 20 mg, [facility] ofatumumab 1-16 SUB-Q, l 50 MG/ML 18:20: qMonth, 0 Herm turner Pen 00 Refill(s) Injector [Kesimpta] 24 HR 2020-06 Yes 25 mg = 1 Memoria mirabegron 1-16 tab, PO, l 25 MG 18:19: Daily, # Samuel Extended 00 30 tab, 5 Release Refill(s) Tablet [Myrbetriq] tramadol 2020-06 Yes 100 mg = 1 Mem oria 100 mg oral 1-16 tab, PO, l tablet, 18:19: Daily, # Manny n extended 00 90 tab, 0 release Refill(s) 24 HR 2020-06 Yes 25 mg = 1 Memoria mirabegron 1-16 tab, PO, l 25 MG 18:19: Daily, # [place] Extended 00 30 tab, 5 Release Refill(s) Tablet [Myrbetriq] tramadol 2020-06 Yes 100 mg = 1 Mem oria 100 mg oral 1-16 tab, PO, l tablet, 18:19: Daily, # Manny n extended 00 90 tab, 0 release Refill(s) 24 HR 2020-06 Yes 25 mg = 1 [facility] mirabegron 1-16 tab, PO, l 25 MG 18:19: Daily, # Samuel Extended 00 30 tab, 5 Release Refill(s) Tablet [Myrbetriq] tramadol 2020-06 Yes 100 mg = 1 Mem [facility] 100 mg oral 1-16 tab, PO, l tablet, 18:19: Daily, # Manny n extended 00 90 tab, 0 release Refill(s) dronabinoL 2020-06- No One po tid [facility] (Marinol) 06-[address] 2.5 MG 00:00: 05:59 pain [facility] capsule 00 :00 l dronabinoL 2020-06- No One po tid [facility] (Marinol) 06-[address] 2.5 MG 00:00: 05:59 pain [facility] capsule 00 :00 l dronabinoL 2020-06- No One po tid [facility] (Marinol) 06-[address] 2.5 MG 00:00: 05:59 pain [facility] capsule 00 :00 l dronabinoL 2020-06- No One po tid [facility] (Marinol) 06-[address] 2.5 MG 00:00: 05:59 pain [facility] capsule 00 :00 l dronabinoL 2020-06- No One po tid [facility] (Marinol) 06-[address] 2.5 MG 00:00: 05:59 pain [facility] capsule 00 :00 l dronabinoL 2020-06- No One po tid [facility] (Marinol) 06-[address] 2.5 MG 00:00: 05:59 pain [facility] capsule 00 :00 l dronabinoL 2020-06- No One po tid [facility] (Marinol) 06-[address] 2.5 MG 00:00: 05:59 pain [facility] capsule 00 :00 l dronabinoL 2020-06- No One po tid [facility] (Marinol) 06-[address] 2.5 MG 00:00: 05:59 pain [facility] capsule 00 :00 l ibuprofen 2020-06- No [id number] 800mg Q8H Take 1 [facility] (ADVIL) 800 0-12 05-[address] MG tablet 00:00: 00:00 (800 mg [facility] 00 :00 total) by l mouth every 8 (eight) hours as needed for mild pain. DULoxetine 2020-06- No 30mg Q.5D Take 1 [facility] (Cymbalta) 0-12 05-[address] 30 MG 00:00: 00:00 (30 mg [facility]osp[facility] capsule 00 :00 total) by l mouth 2 (two) times a day. ibuprofen 2020-06- No [id number] 800mg Q8H Take 1 [facility] ([facility]) 800 0-12 05-[address] MG tablet 00:00: 00:00 (800 mg [facility] 00 :00 total) by l mouth every 8 (eight) hours as needed for mild pain. DULoxetine 2020-06- No 30mg Q.5D Take 1 [facility] (Cymbalta) 0-12 05-[address] 30 MG 00:00: 00:00 (30 mg [facility] capsule 00 :00 total) by l mouth 2 (two) times a day. ibuprofen 2020-06- No [id number] 800mg Q8H Take 1 [facility] ([facility]) 800 0-12 05-[address] MG tablet 00:00: 00:00 (800 mg [facility] 00 :00 total) by l mouth every 8 (eight) hours as needed for mild pain. DULoxetine 2020-2021- No 30mg Q.5D Take 1 [facility] (Cymbalta) 0-12 05-[address] 30 MG 00:00: 00:00 (30 mg [facility] capsule 00 :00 total) by l mouth 2 (two) times a day. ibuprofen 2020-2021- No [id number] 800mg Q8H Take 1 [facility] ([facility]) 800 0-12 05-[address] MG tablet 00:00: 00:00 (800 mg [facility] 00 :00 total) by l mouth every 8 (eight) hours as needed for mild pain. DULoxetine 2020-2021- No 30mg Q.5D Take 1 [facility] (Cymbalta) 0-12 05-[address] 30 MG 00:00: 00:00 (30 mg [facility] capsule 00 :00 total) by l mouth 2 (two) times a day. ibuprofen 2020-2021- No [id number] 800mg Q8H Take 1 [facility] ([facility]) 800 0-12 05-[address] MG tablet 00:00: 00:00 (800 mg [facility] 00 :00 total) by l mouth every 8 (eight) hours as needed for mild pain. DULoxetine 2020-2021- No 30mg Q.5D Take 1 [facility] (Cymbalta) 0-12 05-[address] 30 MG 00:00: 00:00 (30 mg [facility] capsule 00 :00 total) by l mouth 2 (two) times a day. ibuprofen 2020-2021- No [id number] 800mg Q8H Take 1 [facility] ([facility]) 800 0-12 05-[address] MG tablet 00:00: 00:00 (800 mg [facility] 00 :00 total) by l mouth every 8 (eight) hours as needed for mild pain. DULoxetine 2020-2021- No 30mg Q.5D Take 1 [facility] (Cymbalta) 0-12 05-[address] 30 MG 00:00: 00:00 (30 mg [facility] capsule 00 :00 total) by l mouth 2 (two) times a day. ibuprofen 2020-2021- No [id number] 800mg Q8H Take 1 [facility] ([facility]) 800 0-12 05-[address] MG tablet 00:00: 00:00 (800 mg [facility] 00 :00 total) by l mouth every 8 (eight) hours as needed for mild pain. DULoxetine 2020-06- No 30mg Q.5D Take 1 [facility] (Cymbalta) 0-12 05-[address] 30 MG 00:00: 00:00 (30 mg [facility] capsule 00 :00 total) by l mouth 2 (two) times a day. ibuprofen 2020-06- No [id number] 800mg Q8H Take 1 [facility] ([facility]) 800 0-12 05-[address] MG tablet 00:00: 00:00 (800 mg [facility] 00 :00 total) by l mouth every 8 (eight) hours as needed for mild pain. DULoxetine 2020-06- No 30mg Q.5D Take 1 [facility] (Cymbalta) 0-12 05-[address] 30 MG 00:00: 00:00 (30 mg [facility] capsule 00 :00 total) by l mouth 2 (two) times a day. traMADoL 2020-06- [place] [id number] 100mg Q.[id number] Take 2 [facility] (ULTRAM) 50 0-12 03-[id number] mg tablet 00:00: 00:00 3D (100 mg [facility] 00 :00 total) by l mouth 3 (three) times a day for 60 days .chronic pain. traMADoL 2020-06- [place] [id number] 100mg Q.40550481 Take 2 [facility] (ULTRAM) 50 0-12 03-[id number] mg tablet 00:00: 00:00 3D (100 mg [facility] 00 :00 total) by l mouth 3 (three) times a day for 60 days .chronic pain. traMADoL 2020-06- [place] [id number] 100mg Q.82424918 Take 2 [facility] (ULTRAM) 50 0-12 03-[id number] mg tablet 00:00: 00:00 3D (100 mg [facility] 00 :00 total) by l mouth 3 (three) times a day for 60 days .chronic pain. traMADoL 2020-06- [place] [id number] 100mg Q.79561651 Take 2 [facility] (ULTRAM) 50 0-12 03-[id number] mg tablet 00:00: 00:00 3D (100 mg [facility] 00 :00 total) by l mouth 3 (three) times a day for 60 days .chronic pain. traMADoL 2020-06- [place] [id number] 100mg Q.65137445 Take 2 [facility] (ULTRAM) 50 0-12 03-[id number] mg tablet 00:00: 00:00 3D (100 mg [facility] 00 :00 total) by l mouth 3 (three) times a day for 60 days .chronic pain. traMADoL 2020-[place]- [place] [id number] 100mg Q.59720450 Take 2 [facility] (ULTRAM) 50 0-12 03-[id number] mg tablet 00:00: 00:00 3D (100 mg [facility] 00 :00 total) by l mouth 3 (three) times a day for 60 days .chronic pain. traMADoL 2020-06- [place] [id number] 100mg Q.43946258 Take 2 [facility] (ULTRAM) 50 0-12 03-[id number] mg tablet 00:00: 00:00 3D (100 mg [facility] 00 :00 total) by l mouth 3 (three) times a day for 60 days .chronic pain. traMADoL 2020-06- [place] [id number] 100mg Q.78081868 Take 2 [facility] (ULTRAM) 50 0-12 03-[id number] mg tablet 00:00: 00:00 3D (100 mg [facility] 00 :00 total) by l mouth 3 (three) times a day for 60 days .chronic pain. dronabinoL 2020-06- No [id number] 5mg Q.5D Take 2 [facility] (Marinol) 0-12 11-[address] 2.5 MG 00:00: 05:59 (5 mg [facility]osp[facility] capsule 00 :00 total) by l mouth 2 (two) times a day before meals for 30 days. dronabinoL 2020-06- No [id number] 5mg Q.5D Take 2 [facility] (Marinol) 0-12 11-[address] 2.5 MG 00:00: 05:59 (5 mg [facility] capsule 00 :00 total) by l mouth 2 (two) times a day before meals for 30 days. dronabinoL 2020-06- No [id number] 5mg Q.5D Take 2 [facility] (Marinol) 0-12 11-[address] 2.5 MG 00:00: 05:59 (5 mg [facility] capsule 00 :00 total) by l mouth 2 (two) times a day before meals for 30 days. dronabinoL 2020-06- No [id number] 5mg Q.5D Take 2 [facility] (Marinol) 0-12 11-[address] 2.5 MG 00:00: 05:59 (5 mg [facility] capsule 00 :00 total) by l mouth 2 (two) times a day before meals for 30 days. dronabinoL 2020-06- No [id number] 5mg Q.5D Take 2 [facility] (Marinol) 0-12 11-[address] 2.5 MG 00:00: 05:59 (5 mg [facility] capsule 00 :00 total) by l mouth 2 (two) times a day before meals for 30 days. dronabinoL 2020-06- No [id number] 5mg Q.5D Take 2 [facility] (Marinol) 0-12 11-[address] 2.5 MG 00:00: 05:59 (5 mg [facility] capsule 00 :00 total) by l mouth 2 (two) times a day before meals for 30 days. diclofenac 2021- No 100mg QD Take 1 [facility] sodium 9-30 09-[address] (VOTAREN 00:00: 00:00 (100 mg Hospi ta XR) 100 mg 00 :00 total) by l 24 hr mouth tablet daily. diclofenac 2021- No 100mg QD Take 1 [facility] sodium 9-30 09-[address] (VOTAREN 00:00: 00:00 (100 mg Hospi ta XR) 100 mg 00 :00 total) by l 24 hr mouth tablet daily. diclofenac 2021- No 100mg QD Take 1 [facility] sodium 9-30 09-[address] (VOTAREN 00:00: 00:00 (100 mg Hospi ta XR) 100 mg 00 :00 total) by l 24 hr mouth tablet daily. diclofenac 2021- No 100mg QD Take 1 [facility] sodium 930 -[address] (VOTAREN 00:00: 00:00 (100 mg Hospi ta XR) 100 mg 00 :00 total) by l 24 hr mouth tablet daily. diclofenac 2021- No 100mg QD Take 1 [facility] sodium 03-05-[address] (VOTAREN 00:00: 00:00 (100 mg Hospi ta XR) 100 mg 00 :00 total) by l 24 hr mouth tablet daily. diclofenac 2021- No 100mg QD Take 1 [facility] sodium 03-05-[address] (VOTAREN 00:00: 00:00 (100 mg Hospi ta XR) 100 mg 00 :00 total) by l 24 hr mouth tablet daily. diclofenac 2021- No 100mg QD Take 1 [facility] sodium 03-05-[address] (VOTAREN 00:00: 00:00 (100 mg Hospi ta XR) 100 mg 00 :00 total) by l 24 hr mouth tablet daily. diclofenac 2021- No 100mg QD Take 1 [facility] sodium 03-05-[address] (VOTAREN 00:00: 00:00 (100 mg Hospi ta XR) 100 mg 00 :00 total) by l 24 hr mouth tablet daily. diclofenac 2021- No 100mg QD Take 1 [facility] sodium 03-[address] (VOTAREN 00:00: 00:00 (100 mg Hospi ta XR) 100 mg 00 :00 total) by l 24 hr mouth tablet daily. traMADoL 2020- No [id number] 100mg Q.74584255 Take 2 [facility] (ULTRAM) 50 9-20 10-[id number] mg tablet 00:00: 00:00 3D (100 mg [facility] 00 :00 total) by l mouth 3 (three) times a day for 60 days .chronic pain. DULoxetine 2020- No 30mg Q.5D Take 1 [facility] (Cymbalta) 8-10 10-[address] 30 MG 00:00: 00:00 (30 mg [facility]osp[facility] capsule 00 :00 total) by l mouth 2 (two) times a day. fluocinonid 2021- No Q.5D Apply [facility] (LIDEX) 09-[address] 0.05 % 00:00: :59 2 (two) [facility]osp[facility] external 00 :00 times a l solution day. fluocinonid 2021- No Q.5D Apply [facility] (LIDEX) 09-[address] 0.05 % 00:: :59 2 (two) [facility]osp[facility] external 00 :00 times a l solution day. fluocinonid 2021- No Q.5D Apply [facility] (LIDEX) 09-[address] 0.05 % 00:: 59 2 (two) [facility] external 00 :00 times a l solution day. fluocinonid 2021- No Q.5D Apply [facility] (LIDEX) 09-[address] 0.05 % 00:: 59 2 (two) [facility] external 00 :00 times a l solution day. fluocinonid 2021- No Q.5D Apply [facility] (LIDEX) 09-[address] 0.05 % 00:: :59 2 (two) [facility] external 00 :00 times a l solution day. fluocinonid 2021- No Q.5D Apply [facility] (LIDEX) 09-[address] 0.05 % 00:: :59 2 (two) [facility] external 00 :00 times a l solution day. fluocinonid 2021- No Q.5D Apply [facility] (LIDEX) 09-[address] 0.05 % 00:: :59 2 (two) [facility]osp[facility] external 00 :00 times a l solution day. fluocinonid 2020-2021- No Q.5D Apply [facility] (LIDEX) 09-24- topically st 0.05 % 00:: :59 2 (two) [facility]osp[facility] external 00 :00 times a l solution day. fluocinonid 2021- No Q.5D [facility] ([facility]EX[facility]- [facility]ically [facility] 0.05 % 00:00: 23:59 2 (two) [facility] solution 00 :00 times Center daily. fluocinonid 2021- No Q.5D [facility] (LIDEX[facility] 09-24-21 topically [facility] 0.05 % 00:00: 23:59 2 (two) Medical solution 00 :00 times Center daily. fluocinonid 2021- No Q.5D Apply [facility] (LIDEX) 09-24-21 topically [facility] 0.05 % 00:00: 23:59 2 (two) Medical solution 00 :00 times Center daily. fluocinonid 2021- No Q.5D Apply [facility] (LIDEX) 09-24- topically [facility] 0.05 % 00:00: 23:59 2 (two) Medical solution 00 :00 times Center daily. fluocinonid 2021- No Q.5D Apply [facility] (LIDEX) 09-24- topically [facility] 0.05 % 00:00: 23:59 2 (two) Medical solution 00 :00 times Center daily. fluocinonid 2021- No Q.5D Apply [facility] (LIDEX) 09-24-21 topically [facility] 0.05 % 00:00: 23:59 2 (two) Medical solution 00 :00 times Center daily. fluocinonid 2021- No Q.5D Apply [facility] (LIDEX) 09-24-21 topically [facility] 0.05 % 00:00: 23:59 2 (two) Medical solution 00 :00 times Center daily. fluocinonid 2021- No Q.5D Apply [facility] (LIDEX) 09-24-21 topically [facility] 0.05 % 00:00: 23:59 2 (two) Medical solution 00 :00 times Center daily. fluocinonid 2021- No Q.5D Apply [facility] (LIDEX) 09-24-21 topically [facility] 0.05 % 00:00: 23:59 2 (two) Medical solution 00 :00 times Center daily. fluocinonid 2021- No Q.5D Apply [facility] (LIDEX) 09-24 topically [facility] 0.05 % 00:00: 23:59 2 (two) Medical solution 00 :00 times Center daily. DULoxetine 2021- No 60mg QD Take 1 [facility] (Cymbalta) 3-18 03-[address] 60 MG 00:00: 00:00 (60 mg [facility]osp[facility] capsule 00 :00 total) by l mouth daily. DULoxetine 2021- No 60mg QD Take 1 [facility] (Cymbalta) 318 03-[address] 60 MG 00:00: 00:00 (60 mg [facility] capsule 00 :00 total) by l mouth daily. DULoxetine 2021- No 60mg QD Take 1 [facility] (Cymbalta) 318 -[address] 60 MG 00:00: 00:00 (60 mg [facility]osp[facility] capsule 00 :00 total) by l mouth daily. DULoxetine 2021- No 60mg QD Take 1 [facility] (Cymbalta) 318 03-[address] 60 MG 00:00: 00:00 (60 mg [facility]osp[facility] capsule 00 :00 total) by l mouth daily. DULoxetine 2021- No 60mg QD Take 1 [facility] (Cymbalta) 318 03-[address] 60 MG 00:00: 00:00 (60 mg [facility] capsule 00 :00 total) by l mouth daily. DULoxetine 2021- No 60mg QD Take 1 [facility] (Cymbalta) 3-18 03-[address] 60 MG 00:00: 00:00 (60 mg [facility] capsule 00 :00 total) by l mouth daily. DULoxetine 2- No 60mg QD Take 1 [facility] (Cymbalta) 3-18 03-[address] 60 MG 00:00: 00:00 (60 mg [facility]osp[facility] capsule 00 :00 total) by l mouth daily. DULoxetine 2021- No 60mg QD Take 1 [facility] (Cymbalta) 318 08-[address] 60 MG 00:00: 00:00 (60 mg [facility]osp[facility] capsule 00 :00 total) by l mouth daily. naloxegoL 2019-06- No [id number] 25mg QD Take 1 [facility] (Movantik) 07-27 9102 tablet (25 st 25 mg 00:00: 00:00 mg total) [facility] a tablet 00 :00 by mouth l tablet daily before breakfast. naloxegoL 2019-06- No [id number] 25mg QD Take 1 [facility] (Movantik) 07-27 9102 tablet (25 st 25 mg 00:00: 00:00 mg total) Hospit a tablet 00 :00 by mouth l tablet daily before breakfast. naloxegoL 2019-06- No [id number] 25mg QD Take 1 [facility] (Movantik) 07-27 9102 tablet (25 st 25 mg 00:00: 00:00 mg total) Hospit a tablet 00 :00 by mouth l tablet daily before breakfast. naloxegoL 2019-06- No [id number] 25mg QD Take 1 [facility] (Movantik) 07-27 9102 tablet (25 st 25 mg 00:00: 00:00 mg total) Hospit a tablet 00 :00 by mouth l tablet daily before breakfast. naloxegoL 2019-06- No [id number] 25mg QD Take 1 [facility] (Movantik) 07-27 9102 tablet (25 st 25 mg 00:00: 00:00 mg total) Hospit a tablet 00 :00 by mouth l tablet daily before breakfast. naloxegoL 2019-06- No [id number] 25mg QD Take 1 [facility] (Movantik) 07-27 9102 tablet (25 st 25 mg 00:00: 00:00 mg total) Hospit a tablet 00 :00 by mouth l tablet daily before breakfast. naloxegoL 2019-06- No [id number] 25mg QD Take 1 [facility] (Movantik) 07-27 9102 tablet (25 st 25 mg 00:00: 00:00 mg total) Hospit a tablet 00 :00 by mouth l tablet daily before breakfast. naloxegoL 2019-06 [id number] 25mg QD Take 1 [facility] (Movantik) 07-27 9102 tablet (25 st 25 mg 00:00: 00:00 mg total) Hospit a tablet 00 :00 by mouth l tablet daily before breakfast. ibuprofen 2019-06 800mg Q8H Take 1 [facility] (ADVIL) 800 07-27 10-[address] MG tablet 00:00: 00:00 (800 mg [facility] 00 :00 total) by l mouth every 8 (eight) hours as needed for mild pain. metoprolol 2019-06 No 25mg QD Take 1 [facility] succinate 0-06 14-30 tablet (25 st XL 00:00: 00:00 mg total) [facility]osp[facility] (TOPROL-XL) 00 :00 by mouth l 25 mg 24 hr daily. tablet metoprolol 2019-06 No 25mg QD Take 1 [facility] succinate 0-06 14-30 tablet (25 st XL 00:00: 00:00 mg total) [facility]osp[facility] (TOPROL-XL) 00 :00 by mouth l 25 mg 24 hr daily. tablet metoprolol 2019-06 No 25mg QD Take 1 [facility] succinate 0-06 14-30 tablet (25 st XL 00:00: 00:00 mg total) [facility]osp[facility] (TOPROL-XL) 00 :00 by mouth l 25 mg 24 hr daily. tablet metoprolol 2019-06 No 25mg QD Take 1 [facility] succinate 0-06 14-30 tablet (25 st XL 00:00: 00:00 mg total) [facility] (TOPROL-XL) 00 :00 by mouth l 25 mg 24 hr daily. tablet metoprolol 2019-06 No 25mg QD Take 1 Meth cecil succinate 0-06 14-30 tablet (25 st XL 00:00: 00:00 mg total) [facility] (TOPROL-XL) 00 :00 by mouth l 25 mg 24 hr daily. tablet metoprolol 2019-06 No 25mg QD Take 1 Meth cecil succinate 0-06 14-30 tablet (25 st XL 00:00: 00:00 mg total) [facility] (TOPROL-XL) 00 :00 by mouth l 25 mg 24 hr daily. tablet metoprolol 2019-06 No 25mg QD Take 1 Meth cecil succinate 030 tablet (25 st XL 00:00: 00:00 mg total) [facility] (TOPROL-XL) 00 :00 by mouth l 25 mg 24 hr daily. tablet metoprolol 2019-06 No 25mg QD Take 1 Meth cecil succinate 030 tablet (25 st XL 00:00: 00:00 mg total) [facility]osp[facility] (TOPROL-XL) 00 :00 by mouth l 25 mg 24 hr daily. tablet metoprolol 2019-06 No 25mg QD Take 1 Meth cecil succinate 030 tablet (25 st XL 00:00: 00:00 mg total) [facility]osp[facility] (TOPROL-XL) 00 :00 by mouth l 25 mg 24 hr daily. tablet naloxone Yes 1 spray in [facility] (Narcan) 4 09-[address] mg/actuatio 00:00: nostril/ma [facility]osp[facility] n 00 y repeat l spray,non-a every 2-3 erosol minutes in alternatin g nostrils until medical assistance becomes available naloxone 2020-0 [facility] mg[facility]actuatio 00:00: nostril/[facility] n 00 y repeat l spray,non-a every 2-3 erosol minutes in alternatin g nostrils until medical assistance becomes available naloxone 2020-0 Yes [facility] mg/actuatio 00:00: nostril/ma [facility] n 00 y repeat l spray,non-a every 2-3 erosol minutes in alternatin g nostrils until medical assistance becomes available naloxone 2020-0 Yes 1 spray in [facility] (Narcan) 4 09-[address] mg/actuatio 00:00: nostril/ma [facility]osp[facility] n 00 y repeat l spray,non-a every 2-3 erosol minutes in alternatin g nostrils until medical assistance becomes available naloxone 2020-0 Yes 1 spray in [facility] (Narcan) 4 - one st mg/actuatio 00:00: nostril/ma Hospita n 00 y repeat l spray,non-a every 2-3 erosol minutes in alternatin g nostrils until medical assistance becomes available naloxone 2019- Yes [facility] 4 - one [facility] mg/actuatio 00:00: nostril/ma Hospita n 00 y repeat l spray,non-a every 2-3 erosol minutes in alternatin g nostrils until medical assistance becomes available naloxone Yes 1 spray in [facility] (Narcan) 4 - one st mg/actuatio 00:00: nostril/ma Hospita n 00 y repeat l spray,non-a every 2-3 erosol minutes in alternatin g nostrils until medical assistance becomes available naloxone Yes 1 spray in [facility] (Narcan) 4 - one st mg/actuatio 00:00: nostril/ma Hospita n 00 y repeat l spray,non-a every 2-3 erosol minutes in alternatin g nostrils until medical assistance becomes available naloxone 2022- No 1 spray in [facility] (Narcan) 4 09-12 04-[address] mg/actuatio 00:00: 00:00 nostril/ma Hospita n 00 :00 y repeat l spray,non-a every 2-3 erosol minutes in alternatin g nostrils until medical assistance becomes available meclizine 2021- No TAKE 1 Metho di (ANTIVERT) -23 09-[address] 25 mg 00:00: 00:00 MOUTH [facility]osp[facility] tablet 00 :00 THREE l TIMES DAILY NEEDED FOR DIZZINESS meclizine 2021- No TAKE 1 Metho di (ANTIVERT) 6-23 09-[address] 25 mg 00:00: 00:00 MOUTH [facility]ospita tablet 00 :00 THREE l TIMES DAILY NEEDED FOR DIZZINESS meclizine 2021- No TAKE 1 Metho di (ANTIVERT) 6-20 -[address] 25 mg 00:00: 00:00 MOUTH [facility]ospita tablet 00 :00 THREE l TIMES DAILY NEEDED FOR DIZZINESS meclizine 2021- No TAKE 1 Metho di (ANTIVERT) 6-23 09-[address] 25 mg 00:00: 00:00 MOUTH [facility]ospita tablet 00 :00 THREE l TIMES DAILY NEEDED FOR DIZZINESS meclizine 2021- No TAKE 1 Metho di (ANTIVERT) -23 09-[address] 25 mg 00:00: 00:00 MOUTH Hospita tablet 00 :00 THREE l TIMES DAILY NEEDED FOR DIZZINESS meclizine 2021- No TAKE 1 Metho di (ANTIVERT) 6-[address] 25 mg 00:00: 00:00 MOUTH [facility]ospita tablet 00 :00 THREE l TIMES DAILY NEEDED FOR DIZZINESS meclizine 2021- No TAKE 1 Metho di (ANTIVERT) 11-23- TABLET BY st 25 mg 00:00: 00:00 MOUTH [facility]ospita tablet 00 :00 THREE l TIMES DAILY NEEDED FOR DIZZINESS meclizine 2021- No TAKE 1 Metho di (ANTIVERT) 11-23- TABLET BY st 25 mg 00:00: 00:00 MOUTH [facility]osp[facility] tablet 00 :00 THREE l TIMES DAILY NEEDED FOR DIZZINESS tramadol Yes TK 1 T PO Brien mora hydrochlori 2-26 Q 6 H PRN l de 50 MG 20:24: FOR [place] Oral Tablet 00 MODERATE PAIN hydromorpho Yes TK 1 T PO M emoria ne 2 mg 2-26 TID PRF l oral tablet 20:24: BREAKTHROU Samuel [facility] PAIN Acetaminoph Yes TK 1 TO 2 M emoria en 325 MG / 2-26 TS PO Q 8 l Hydrocodone 20:24: H PRN P Her hammer Bitartrate 00 10 MG Oral Tablet tramadol 2018- Yes TK 1 T PO Brien mora hydrochlori 2-26 Q 6 H PRN l de 50 MG 20:24: FOR Samuel Oral Tablet 00 MODERATE PAIN hydromorpho Yes TK 1 T PO M emoria ne 2 mg 2-26 TID PRF l oral tablet 20:24: BREAKTHROU [place] GH PAIN Acetaminoph Yes TK 1 TO 2 M emoria en 325 MG / 2-26 TS PO Q 8 l Hydrocodone 20:24: H PRN P Her hammer Bitartrate 00 10 MG Oral Tablet tramadol Yes TK 1 T PO Brien mora hydrochlori 2-26 Q 6 H PRN l de 50 MG 20:24: FOR [place] Oral Tablet 00 MODERATE PAIN hydromorpho 2019-0 Yes TK 1 T PO M emoria ne 2 mg 2-26 TID PRF l oral tablet 20:24: BREAKTHROU [place] 00 GH PAIN Acetaminoph 2018-0 Yes TK 1 TO 2 M emoria en 325 MG / 2-26 TS PO Q 8 l Hydrocodone 20:24: H PRN P Her hammer Bitartrate 00 10 MG Oral Tablet pregabalin 2018-0 Yes 25 mg = 1 Me moria 25 MG Oral 2-26 cap, PO, l Capsule 20:23: Daily, # Manny n [Lyrica] 00 30 cap, 0 Refill(s) pregabalin 2019-0 Yes 25 mg = 1 Me moria 25 MG Oral 2-26 cap, PO, l Capsule 20:23: Daily, # Manny n [Lyrica] 00 30 cap, 0 Refill(s) pregabalin 2019-0 Yes 25 mg = 1 Me moria 25 MG Oral 2-26 cap, PO, l Capsule 20:23: Daily, # Manny n [Lyrica] 00 30 cap, 0 Refill(s) conjugated 2017-06- No .5g Q7D Insert 0.5 Methodi estrogens 0-01 03-[address] (PREMARIN) 00:00: 00:00 [facility] 0.625 00 :00 once a l mg/gram week. vaginal Tuesday cream conjugated 2017-06- No .5g Q7D Insert 0.5 Methodi estrogens 0-01 03-[address] (PREMARIN) 00:00: 00:00 vagina [facility]osp [facility]lad 0.625 00 :00 once a l mg/gram week. vaginal Tuesday cream conjugated 2017-06- No .5g Q7D Insert 0.5 Methodi estrogens 0-01 03-[address] (PREMARIN) 00:00: 00:00 vagina [facility]osp [facility]lad 0.625 00 :00 once a l mg/gram week. vaginal Tuesday cream conjugated 2017-06- No .5g Q7D Insert 0.5 Methodi estrogens 0-01 03-[address] (PREMARIN) 00:00: 00:00 vagina [facility]osp [facility]lad 0.625 00 :00 once a l mg/gram week. vaginal Tuesday cream conjugated 2017-06- No .5g Q7D Insert 0.5 Methodi estrogens 0-01 03-[address] (PREMARIN) 00:00: 00:00 vagina [facility]osp [facility]lad 0.625 00 :00 once a l mg/gram week. vaginal Tuesday cream conjugated 2017-06- No .5g Q7D Insert 0.5 Methodi estrogens 0-01 03-[address] (PREMARIN) 00:00: 00:00 vagina Hosp vlad 0.625 00 :00 once a l mg/gram week. vaginal Tuesday cream conjugated 2017-06- No .5g Q7D Insert 0.5 Methodi estrogens 0-01 03-[address] (PREMARIN) 00:00: 00:00 vagina [facility]osp [facility]lad 0.625 00 :00 once a l mg/gram week. vaginal Tuesday cream conjugated 2017-06- No .5g Q7D Insert 0.5 Methodi estrogens 0-01 03-[address] (PREMARIN) 00:00: 00:00 vagina [facility]osp [facility]lad 0.625 00 :00 once a l mg/gram week. vaginal Tuesday cream Lactated 2017- No 1,000 mL, Brien mora Ringers IV 9 Rate: 40 l 1,000 mL 17:28: ml/hr, [place] 00 Infuse over: 25 hr, Route: IV, Dosing Weight 64.545 kg, Total Volume: 1,000, Start date: 02/20/18 12:28:00 CDT, Duration: 30 day, Stop date: 03/22/18 12:27:00 CDT, 1.77, m2 Lactated 2017-0 No 1,000 mL, Brien mora Ringers IV 02-20 Rate: 40 l 1,000 mL 17:28: ml/hr, [place] 00 Infuse over: 25 hr, Route: IV, Dosing Weight 64.545 kg, Total Volume: 1,000, Start date: 02/20/18 12:28:00 CDT, Duration: 30 day, Stop date: 03/22/18 12:27:00 CDT, 1.77, m2 Lactated 2017-0 No 1,000 mL, Brien mora Ringers IV 02-20 Rate: 40 l 1,000 mL 17:28: ml/hr, Samuel 00 Infuse over: 25 hr, Route: IV, Dosing Weight 64.545 kg, Total Volume: 1,000, Start date: 02/20/18 12:28:00 CDT, Duration: 30 day, Stop date: 03/22/18 12:27:00 CDT, 1.77, m2 gabapentin 2018-0 Yes 600 mg = 1 M emoria 600 MG Oral 9-12 tab, PO, l Tablet 13:54: TID, # 270 Jodi nn 00 tab, 0 Refill(s) gabapentin 2018-0 Yes 600 mg = 1 M emoria 600 MG Oral 9-12 tab, PO, l Tablet 13:54: TID, # 270 Jodi nn 00 tab, 0 Refill(s) gabapentin 2018-0 Yes 600 mg = 1 M emoria 600 MG Oral 9-12 tab, PO, l Tablet 13:54: TID, # 270 Jodi nn 00 tab, 0 Refill(s) baclofen 2018-0 Yes 30mg Q.[id number] Take 3 M ethodi (LIORESAL) 6-[id number] 10 MG 00:00: 3D (30 mg Hospita tablet 00 total) by l mouth 3 (three) times a day. baclofen 2018-0 Yes 30mg Q.[id number] Take 3 M ethodi (LIORESAL) 6-[id number] 10 MG 00:00: 3D (30 mg Hospita tablet 00 total) by l mouth 3 (three) times a day. baclofen 2018-0 Yes 30mg Q.[id number] Take 3 M ethodi (LIORESAL) 6-[id number] 10 MG 00:00: 3D (30 mg Hospita tablet 00 total) by l mouth 3 (three) times a day. baclofen 2018-0 Yes 30mg Q.[id number] Take 3 M ethodi (LIORESAL) 6-[id number] 10 MG 00:00: 3D (30 mg Hospita tablet 00 total) by l mouth 3 (three) times a day. baclofen 2018-0 Yes 30mg Q.[id number] Take 3 M ethodi (LIORESAL) 6-[id number] 10 MG 00:00: 3D (30 mg Hospita tablet 00 total) by l mouth 3 (three) times a day. baclofen 2018-0 Yes 30mg Q.[id number] Take 3 M ethodi (LIORESAL) 6-[id number] 10 MG 00:00: 3D (30 mg Hospita tablet 00 total) by l mouth 3 (three) times a day. baclofen 2018-0 Yes 30mg Q.[id number] Take 3 M ethodi (LIORESAL) 6-[id number] 10 MG 00:00: 3D (30 mg Hospita tablet 00 total) by l mouth 3 (three) times a day. baclofen 2018-0 Yes 30mg Q.[id number] Take 3 M ethodi (LIORESAL) 6-[id number] 10 MG 00:00: 3D (30 mg Hospita tablet 00 total) by l mouth 3 (three) times a day. baclofen 2018-0 Yes 30mg Q.[id number] Take 3 M ethodi (LIORESAL) 6-[id number] 10 MG 00:00: 3D (30 mg Hospita tablet 00 total) by l mouth 3 (three) times a day. Botulinum 2018-0 No 600 unit, Mem oria Toxin Type 6-06 Route: IM, l A 21:00: Samuel GALVAN Dosing Weight 64.545, kg, Start date: 11/09/17 16:00:00 CDT, Duration: 30 day, Stop date: 12/09/17 15:59:00 CDT Botulinum 2018-0 No 600 unit, Mem oria Toxin Type 6-06 Route: IM, l A 21:00: Samuel GALVAN Dosing Weight 64.545, kg, Start date: 11/09/17 16:00:00 CDT, Duration: 30 day, Stop date: 12/09/17 15:59:00 CDT Botulinum 2018-0 No 600 unit, Mem oria Toxin Type 6-06 Route: IM, l A 21:00: Samuel GALVAN Dosing Weight 64.545, kg, Start date: 11/09/17 16:00:00 CDT, Duration: 30 day, Stop date: 12/09/17 15:59:00 CDT Baclofen 2018-0 Yes PO, TID, Memor ia 6-06 30mg TID, l 18:08: 0 [place] 00 Refill(s) Baclofen 2018-0 Yes PO, TID, Memor ia 6-06 30mg TID, l 18:08: 0 Samuel 00 Refill(s) Baclofen 2018-0 Yes PO, TID, Memor ia 6-06 30mg TID, l 18:08: 0 [place] 00 Refill(s) duloxetine 2018-0 Yes 30 mg = 1 Me moria 30 MG 5-02 cap, PO, l Enteric 14:19: Daily, 0 Manny n Coated 00 Refill(s) Capsule [Cymbalta] duloxetine 2018-0 Yes 30 mg = 1 Me moria 30 MG 5-02 cap, PO, l Enteric 14:19: Daily, 0 Manny n Coated 00 Refill(s) Capsule [Cymbalta] duloxetine 2018-0 Yes 30 mg = 1 Me moria 30 MG 5-02 cap, PO, l Enteric 14:19: Daily, 0 Manny n Coated 00 Refill(s) Capsule [Cymbalta] Lyrica 25 Lyrica 25 2017- Yes Q0.5D TAKE 1 UT MG Oral MG Oral 2-21 CAPSULE Physic i Capsule Capsule 00:00: TWICE ans 00 DAILY. Botulinum 2016-06 No 600 unit, Mem oria Toxin Type 2-06 Route: IM, l A 18:00: ONCAlva TRAVIS Dosing Weight 65, kg, Start date: 05/11/17 12:00:00 [employer]PRING W[employer]ER, Duration: 30 day, Stop date: 06/10/17 11:59:00 [employer] Botulinum 2016- No 600 unit, Mem oria Toxin Type 2-06 Route: IM, l A 18:00: [place] 00 Dosing Weight 65, kg, Start date: 05/11/17 12:00:00 [employer] [employer]ER, Duration: 30 day, Stop date: 06/10/17 11:59:00 [employer] Botulinum 2016- No 600 unit, Mem oria Toxin Type 2-06 Route: IM, l A 18:00: ONCALL, Samuel 00 Dosing Weight 65, kg, Start date: 05/11/17 12:00:00 [employer] [employer]ER, Duration: 30 day, Stop date: 06/10/17 11:59:00 [employer] [employer] pregabalin 2017-1 Yes 25 mg = 1 Me moria 25 MG Oral 2-06 cap, PO, l Capsule 16:16: Daily, # Manny n [Lyrica] 00 30 cap, 0 Refill(s) pregabalin 2016-06 Yes 25 mg = 1 Me moria 25 MG Oral 2-06 cap, PO, l Capsule 16:16: Daily, # Manny n [Lyrica] 00 30 cap, 0 Refill(s) pregabalin 2016-06 Yes 25 mg = 1 Me moria 25 MG Oral 2-06 cap, PO, l Capsule 16:16: Daily, # Manny n [Lyrica] 00 30 cap, 0 Refill(s) traMADol traMADol 2016-06 Yes BRONSON 1 Q0.3333D TAKE 1 UT HCl - 50 MG HCl - 50 MG 1-16 GALLOZA-OT TABLET 3 Physici Oral Tablet Oral Tablet 00:00: ERO M.D. TIMES ans 00 DAILY NEEDED. Lyrica 25 Lyrica 25 2016-06 Yes BRONSON Q0.5D TAKE 1 UT MG Oral MG Oral 1-16 GALLOZA-OT CAPSULE Physici Capsule Capsule 00:00: ERO M.D. TWICE an s 00 DAILY. lidocaine 2016-06 No Notes: Memori a 1% 0-05 (Same as: l preservativ 22:05: Xylocaine) [place] e-free 00 injectable solution lidocaine 2016-06 No Notes: Memori a 1% 0-05 (Same as: l preservativ 22:05: Xylocaine) [place] e-free 00 injectable solution lidocaine 2016-06 No Notes: Memori a 1% 0-05 (Same as: l preservativ 22:05: Xylocaine) Samuel e-free 00 injectable solution hyaluronan 2016-06 No Notes: Memor ia 0-05 Same as: l 20:00: Hymovis [place] hyaluronan 2016-06 No Notes: Memor ia 0-05 Same as: l 20:00: Hymovis Samuel hyaluronan 2016-06 No Notes: Memor ia 0-05 Same as: l 20:00: Hymovis Samuel Botulinum No 500 unit, Mem oria Toxin Type 9-06 Route: IM, l A 17:00: Samuel GALVAN Dosing Weight 65.909, kg, Start date: 02/09/17 12:00:00 CDT, Duration: 30 day, Stop date: 03/11/17 11:59:00 CDT Botulinum 2017-0 No 500 unit, Mem oria Toxin Type 02-09 Route: IM, l A 17:00: Samuel GALVAN Dosing Weight 65.909, kg, Start date: 02/09/17 12:00:00 CDT, Duration: 30 day, Stop date: 03/11/17 11:59:00 CDT Botulinum 2017-0 No 500 unit, Mem oria Toxin Type 02-09 Route: IM, l A 17:00: ONCAlva TRAVIS Dosing Weight 65.909, kg, Start date: 02/09/17 12:00:00 CDT, Duration: 30 day, Stop date: 03/11/17 11:59:00 CDT Ocrevus 300 2017-0 Yes 600 mg, Mem oria mg/10 mL 9-06 IV, q6mo, l intravenous 15:50: 0 Manny n solution 00 Refill(s) Ocrevus 300 2017-0 Yes 600 mg, Mem oria mg/10 mL 9-06 IV, q6mo, l intravenous 15:50: 0 Manny n solution 00 Refill(s) Ocrevus 300 2017-0 Yes 600 mg, Mem oria mg/10 mL 9-06 IV, q6mo, l intravenous 15:50: 0 Manny n solution 00 Refill(s) baclofen 10 Yes 10 mg = 1 M emoria mg oral -06 tab, PO, l tablet 15:48: TID, 0 Samuel 00 Refill(s) baclofen 10 0 Yes 10 mg = 1 M emoria mg oral 9-06 tab, PO, l tablet 15:48: TID, 0 [place] 00 Refill(s) baclofen 10 0 Yes 10 mg = 1 M emoria mg oral 9-06 tab, PO, l tablet 15:48: TID, 0 Samuel 00 Refill(s) 24 HR 2016-0 Yes 37.5 mg = Memoria venlafaxine 7-12 1 cap, PO, l 37.5 MG 21:38: Daily, # Manny n Extended 00 30 cap, 3 Release Refill(s), Capsule Pharmacy: [Effexor] [facility] #[id number] celecoxib 2017- Yes 100 mg = 1 Me moria 100 MG Oral 7-12 cap, PO, l Capsule 21:38: BID, # 28 Jodi nn [Celebrex] 00 cap, 0 Refill(s), Pharmacy: [facility] #[id number] 24 HR 2016- Yes 37.5 mg = Memoria venlafaxine 7-12 1 cap, PO, l 37.5 MG 21:38: Daily, # Manny n Extended 00 30 cap, 3 Release Refill(s), Capsule Pharmacy: [Effexor] [facility] #[id number] celecoxib 2016- Yes 100 mg = 1 Me moria 100 MG Oral 7-12 cap, PO, l Capsule 21:38: BID, # 28 Jodi nn [Celebrex] 00 cap, 0 Refill(s), Pharmacy: [facility] #[id number] 24 HR Yes 37.5 mg = Memoria venlafaxine 7-12 1 cap, PO, l 37.5 MG 21:38: Daily, # Manny n Extended 00 30 cap, 3 Release Refill(s), Capsule Pharmacy: [Effexor] [facility] #[id number] celecoxib 2016- Yes 100 mg = 1 Me moria 100 MG Oral 7-12 cap, PO, l Capsule 21:38: BID, # 28 Jodi nn [Celebrex] 00 cap, 0 Refill(s), Pharmacy: [facility] #[id number] duloxetine 2016- Yes 30 mg = 1 Me moria 30 MG 6-07 cap, PO, l Enteric 14:37: Daily, # Manny n Coated 57 30 cap, 2 Capsule Refill(s), [Cymbalta] Pharmacy: [facility] #[id number] duloxetine 2016-0 Yes 30 mg = 1 Me moria 30 MG 6-07 cap, PO, l Enteric 14:37: Daily, # Manny n Coated 57 30 cap, 2 Capsule Refill(s), [Cymbalta] Pharmacy: [facility] #[id number] duloxetine 2016-0 Yes 30 mg = 1 Me moria 30 MG 6-07 cap, PO, l Enteric 14:37: Daily, # Manny n Coated 57 30 cap, 2 Capsule Refill(s), [Cymbalta] Pharmacy: [facility] #[id number] Botulinum 2017-0 No 400 unit, Mem oria Toxin Type 5-25 Route: IM, l A 22:00: ONCALL, Samuel Dosing Weight 64.545, kg, Start date: 10/28/16 17:00:00 CDT, Duration: 30 day, Stop date: 11/27/16 16:59:00 CDT Botulinum 2017-0 No 400 unit, Mem oria Toxin Type 5-25 Route: IM, l A 22:00: ONCALL, Samuel 00 Dosing Weight 64.545, kg, Start date: 10/28/16 17:00:00 CDT, Duration: 30 day, Stop date: 11/27/16 16:59:00 CDT Botulinum 2017-0 No 400 unit, Mem oria Toxin Type 5-25 Route: IM, l A 22:00: [place] 00 Dosing Weight 64.545, kg, Start date: 10/28/16 17:00:00 CDT, Duration: 30 day, Stop date: 11/27/16 16:59:00 CDT duloxetine Yes 30 mg = 1 Me moria 30 MG 5-11 cap, PO, l Enteric 21:50: Daily, # Manny n Coated 00 30 cap, 1 Capsule Refill(s), [Cymbalta] Pharmacy: [facility] #[id number] duloxetine Yes 30 mg = 1 Me moria 30 MG 5-11 cap, PO, l Enteric 21:50: Daily, # Manny n Coated 00 30 cap, 1 Capsule Refill(s), [Cymbalta] Pharmacy: [facility] #[id number] duloxetine Yes 30 mg = 1 Me moria 30 MG 5-11 cap, PO, l Enteric 21:50: Daily, # Manny n Coated 00 30 cap, 1 Capsule Refill(s), [Cymbalta] Pharmacy: [id number] lidocaine Yes Notes: Memori a 1% 5-05 (Same as: l preservativ 23:06: Xylocaine) Samuel e-free injectable solution lidocaine Yes Notes: Memori a 1% 5-05 (Same as: l preservativ 23:06: Xylocaine) [place] e-free injectable solution lidocaine 2016- Yes Notes: Memori a 1% 5-05 (Same as: l preservativ 23:06: Xylocaine) Samuel e-free injectable solution tizanidine 2017-0 Yes 2 mg = 1 Mem oria 2 mg oral 4-12 tab, PO, l tablet 19:37: TID, PRN Samuel 17 for muscle spasm, # 90 tab, 2 Refill(s), Pharmacy: [facility] #[id number] tizanidine 2017-0 Yes 2 mg = 1 Mem oria 2 mg oral 4-12 tab, PO, l tablet 19:37: TID, PRN [place] 17 for muscle spasm, # 90 tab, 2 Refill(s), Pharmacy: [facility] #[id number] tizanidine 2017-0 Yes 2 mg = 1 Mem oria 2 mg oral 4-12 tab, PO, l tablet 19:37: TID, PRN Samuel 17 for muscle spasm, # 90 tab, 2 Refill(s), Pharmacy: [facility] #[id number] tramadol 2017-0 Yes 100 mg = 2 Mem oria hydrochlori 4-12 tab, PO, l de 50 MG 19:37: Daily, X Jodi nn Oral Tablet 30 day, # 60 tab, 2 Refill(s) tramadol 2016-0 Yes 100 mg = 2 Mem oria hydrochlori 4-12 tab, PO, l de 50 MG 19:37: Daily, X Jodi nn Oral Tablet 11 02 day, # 60 tab, 2 Refill(s) tramadol 2017-0 Yes 100 mg = 2 Mem oria hydrochlori 4-12 tab, PO, l de 50 MG 19:37: Daily, X Jodi nn Oral Tablet 30 day, # 60 tab, 2 Refill(s) tramadol 2017-0 Yes 100 mg = 2 Mem oria hydrochlori 2-23 tab, PO, l de 50 MG 22:04: Daily, # Jodi nn Oral Tablet 00 60 tab, 1 Refill(s) tramadol 2017-0 Yes 100 mg = 2 Mem oria hydrochlori 2-23 tab, PO, l de 50 MG 22:04: Daily, # Jodi nn Oral Tablet 00 60 tab, 1 Refill(s) tramadol Yes 100 mg = 2 Mem oria hydrochlori 2-23 tab, PO, l de 50 MG 22:04: Daily, # Jodi nn Oral Tablet 00 60 tab, 1 Refill(s) 12 HR Yes 10 mg = 1 Memoria dalfampridi 2-23 tab, PO, l ne 10 MG 21:42: Q12H, 0 Manny n Extended 00 Refill(s) Release Tablet [Ampyra] 12 HR Yes 10 mg = 1 Memoria dalfampridi 2-23 tab, PO, l ne 10 MG 21:42: Q12H, 0 Manny n Extended 00 Refill(s) Release Tablet [Ampyra] 12 HR Yes 10 mg = 1 Memoria dalfampridi 2-23 tab, PO, l ne 10 MG 21:42: Q12H, 0 Manny n Extended 00 Refill(s) Release Tablet [Ampyra] lidocaine Yes Notes: Memori a 1% 1-26 (Same as: l preservativ 21:13: Xylocaine) [place] e-free injectable solution lidocaine Yes Notes: Memori a 1% 1-26 (Same as: l preservativ 21:13: Xylocaine) [place] e-free 00 injectable solution lidocaine Yes Notes: Memori a 1% 1-26 (Same as: l preservativ 21:13: Xylocaine) [place] e-free 00 injectable solution Kenalog-40 No Notes: Memor ia - (Same As: l 22:00: Kenalog-40 Samuel ) MEDICATION WASTE Product Size: 40 mg Product Wasted: ___ mg lidocaine No Notes: Memori a -06 (Same as: l 22:00: Xylocaine) Kenalog-40 No Notes: Memor ia - (Same As: l 22:00: Kenalog-40 [place] ) MEDICATION WASTE Product Size: 40 mg Product Wasted: ___ mg lidocaine No Notes: Memori a - (Same as: l 22:00: Xylocaine) Kenalog-40 No Notes: Memor ia 06-11 (Same As: l 22:00: Kenalog-40 ) MEDICATION WASTE Product Size: 40 mg Product Wasted: ___ mg lidocaine No Notes: Memori a 06-11 (Same as: l 22:00: Xylocaine) Botulinum 2015-06 No 450 unit, Mem oria Toxin Type 2-28 Route: IM, l A 22:00: ONCALLAlvaSamuel Dosing Weight 63.636, kg, Start date: 06/02/16 16:00:00 [place] [employer]ER, Duration: 30 day, Stop date: 07/02/16 15:59:00 [employer] [employer] Botulinum 2015-06 No 450 unit, Mem oria Toxin Type 2-28 Route: IM, l A 22:00: ONCALLAlvaSamuel 00 Dosing Weight 63.636, kg, Start date: 06/02/16 16:00:00 [place] [employer]ER, Duration: 30 day, Stop date: 07/02/16 15:59:00 [place] [employer] Botulinum 2015-06 No 450 unit, Mem oria Toxin Type 2-28 Route: IM, l A 22:00: ONCALLAlvaSamuel 00 Dosing Weight 63.636, kg, Start date: 06/02/16 16:00:00 [employer] [employer], Duration: 30 day, Stop date: 07/02/16 15:59:00 [employer] [employer] tramadol 2015-06 Yes 50 mg = 1 Brien mora hydrochlori 2-15 tab, PO, l de 50 MG 20:49: Q12H, X 30 Her hammer Oral Tablet 23 day, # 60 tab, 0 Refill(s) tramadol 2015-06 Yes 50 mg = 1 Brien mora hydrochlori 2-15 tab, PO, l de 50 MG 20:49: Q12H, X 30 Her hammer Oral Tablet 23 day, # 60 tab, 0 Refill(s) tramadol 2015-06 Yes 50 mg = 1 Brien mora hydrochlori 2-15 tab, PO, l de 50 MG 20:49: Q12H, X 30 Her hammer Oral Tablet 23 day, # 60 tab, 0 Refill(s) tramadol 2015-06 No 50 mg = 1 Brien mora hydrochlori 1-22 tab, PO, l de 50 MG 20:45: Q12H, X 30 Her hammer Oral Tablet 03 day, # 60 tab, 0 Refill(s), called to pharmacy tramadol 2015-06 No 50 mg = 1 Brien mora hydrochlori 1-22 tab, PO, l de 50 MG 20:45: Q12H, X 30 Her hammer Oral Tablet 03 day, # 60 tab, 0 Refill(s), called to pharmacy tramadol 2015-06 No 50 mg = 1 Brien mora hydrochlori 1-22 tab, PO, l de 50 MG 20:45: Q12H, X 30 Her hammer Oral Tablet 03 day, # 60 tab, 0 Refill(s), called to pharmacy tramadol 2015-06 Yes 100 mg = 2 Mem oria hydrochlori 0-31 tab, PO, l de 50 MG 19:47: Daily, 0 Jodi nn Oral Tablet 00 Refill(s) Tramadol 2015-06 No 50 mg, PO, Mem oria 0-31 Q4-6H, PRN l 19:47: Pain, # 20 [place] 00 tab, 0 Refill(s) tramadol 2015-06 Yes 100 mg = 2 Mem oria hydrochlori 0-31 tab, PO, l de 50 MG 19:47: Daily, 0 Jodi nn Oral Tablet 00 Refill(s) Tramadol 2015-06 No 50 mg, PO, Mem oria 0-31 Q4-6H, PRN l 19:47: Pain, # 20 [place] 00 tab, 0 Refill(s) tramadol 2015-06 Yes 100 mg = 2 Mem oria hydrochlori 0-31 tab, PO, l de 50 MG 19:47: Daily, 0 Jodi nn Oral Tablet 00 Refill(s) Tramadol 2015-06 No 50 mg, PO, Mem oria 0-31 Q4-6H, PRN l 19:47: Pain, # 20 [place] 00 tab, 0 Refill(s) Botulinum No 300 unit, Mem oria Toxin Type 9-30 Route: IM, l A 16:00: Samuel GALVAN Dosing Weight 64.545, kg, Start date: 03/05/16 11:00:00 CDT, Duration: 30 day, Stop date: 04/04/16 10:59:00 CDT Botulinum No 300 unit, Mem oria Toxin Type 9-30 Route: IM, l A 16:00: ONCALLAlvaSamuel 00 Dosing Weight 64.545, kg, Start date: 03/05/16 11:00:00 CDT, Duration: 30 day, Stop date: 04/04/16 10:59:00 CDT Botulinum 2016-0 No 300 unit, Mem oria Toxin Type 30 Route: IM, l A 16:00: ONCAlva TRAVIS Dosing Weight 64.545, kg, Start date: 03/05/16 11:00:00 CDT, Duration: 30 day, Stop date: 04/04/16 10:59:00 CDT tramadol 2015-0 Yes 100 mg = 2 Mem [facility] hydrochlori 9-28 tab, PO, l de 50 MG 20:15: Daily, X Jodi nn Oral Tablet day, # 60 tab, 0 Refill(s) amitriptyli 2015-0 Yes 25 mg = 1 M emoria ne 25 mg 9-28 tab, PO, l oral tablet 20:15: Bedtime, # Samuel 00 30 tab, 1 Refill(s) tramadol 2015-0 Yes 100 mg = 2 Mem [facility]ria hydrochlori 9-28 tab, PO, l de 50 MG 20:15: Daily, X Jodi nn Oral Tablet 30 day, # 60 tab, 0 Refill(s) amitriptyli 2015-0 Yes 25 mg = 1 M emoria ne 25 mg 9-28 tab, PO, l oral tablet 20:15: Bedtime, # Samuel 00 30 tab, 1 Refill(s) tramadol 2015-0 Yes 100 mg = 2 Mem oria hydrochlori 9-28 tab, PO, l de 50 MG 20:15: Daily, X Jodi nn Oral Tablet 30 day, # 60 tab, 0 Refill(s) amitriptyli 2015-0 Yes 25 mg = 1 M emoria ne 25 mg 9-28 tab, PO, l oral tablet 20:15: Bedtime, # Samuel 00 30 tab, 1 Refill(s) lidocaine No Notes: Memori a 1% 9-28 (Same as: l preservativ 20:03: Xylocaine) [place] e-free injectable solution lidocaine No Notes: Memori a 1% 9-28 (Same as: l preservativ 20:03: Xylocaine) Samuel e-free 00 injectable solution lidocaine No Notes: Memori a 1% 9-28 (Same as: l preservativ 20:03: Xylocaine) [place] e-free injectable solution lidocaine No 0.04 gm = Mem oria 1% 9-28 4 mL, l preservativ 19:58: intra-YAZAN Samuel e-free 00 CULAR, injectable ONCE, # 4 solution mL, 0 Refill(s) lidocaine No 0.04 gm = Mem [facility] 1% 9-28 4 mL, l preservativ 19:58: intra-YAZAN Samuel e-free 00 CULAR, injectable ONCE, # 4 solution mL, 0 Refill(s) lidocaine No 0.04 gm = Mem [facility] 1% 9-28 4 mL, l preservativ 19:58: intra-YAZAN [place] e-free 00 CULAR, injectable ONCE, # 4 solution mL, 0 Refill(s) tramadol Yes 50 mg = 1 Brien mora hydrochlori 9-28 tab, PO, l de 50 MG 19:21: Daily, 0 Jodi nn Oral Tablet 00 Refill(s) tramadol 0 Yes 50 mg = 1 Brien mora hydrochlori 9-28 tab, PO, l de 50 MG 19:21: Daily, 0 Jodi nn Oral Tablet 00 Refill(s) tramadol 0 Yes 50 mg = 1 Brien mora hydrochlori 9-28 tab, PO, l de 50 MG 19:21: Daily, 0 Jodi nn Oral Tablet 00 Refill(s) onabotulinu 0 No 200 [facility]: IM, l 17:00: Samuel GALVAN Dosing Weight 65, kg, Start date: 12/03/15 12:00:00 CDT, Duration: 30 day, Stop date: 01/02/16 11:59:00 CDT onabotulinu 0 No 200 unit, [facility] [facility], l 17:00: ONCALLSamuel Dosing Weight 65, kg, Start date: 12/03/15 12:00:00 CDT, Duration: 30 day, Stop date: 01/02/16 11:59:00 CDT onabotulinu 2015- No 200 unit, Kush sweet mtoxinA 12-02 Route: IM, l 17:00: Samuel GALVAN 00 Dosing Weight 65, kg, Start date: 12/03/15 12:00:00 CDT, Duration: 30 day, Stop date: 01/02/16 11:59:00 CDT tramadol 2015-0 Yes 50 mg, PO, Mem oria hydrochlori 12-02 Q4-6H, PRN l de 50 MG 16:20: Pain, # Manny n Oral Tablet 00 100 tab, 0 Refill(s) tramadol 2015-0 Yes 50 mg, PO, Mem [facility]ria hydrochlori - Q4-6H, PRN l de 50 MG 16:20: Pain, # Manny n Oral Tablet 00 100 tab, 0 Refill(s) tramadol 2015-0 Yes 50 mg, PO, Mem oria hydrochlori - Q4-6H, PRN l de 50 MG 16:20: Pain, # Manny n Oral Tablet 00 100 tab, 0 Refill(s) lubiproston Yes 24 Memori a e 0.024 MG 6-29 microgram l Oral 16:07: = 1 cap, Samuel Capsule 00 PO, BID, # [Amitiza] 60 cap, 0 Refill(s) lubiproston 2015- Yes 24 Memori a e 0.024 MG 6-29 microgram l Oral 16:07: = 1 cap, Samuel Capsule 00 PO, BID, # [Amitiza] 60 cap, 0 Refill(s) [place] Yes 24 Memori a e 0.024 MG 6-29 microgram l Oral 16:07: = 1 cap, Samuel Capsule 00 PO, BID, # [Amitiza] 60 cap, 0 Refill(s) AMPYRA 10 0 Yes 10mg Q12H 1 tablet Meth cecil mg tablet 11-04 ([address] extended 00:00: total) [facility]osp[facility] release 12 00 every 12 l hr (twelve) hours. AMPYRA 10 0 Yes 10mg Q12H 1 tablet [facility] mg tablet 11-04 ([address] extended 00:00: total) [facility]ospita release 12 00 every 12 l hr (twelve) hours. AMPYRA 10 2015-0 Yes 10mg Q12H 1 tablet [facility] cec[facility] mg tablet 6-01 ([address] extended 00:00: total) [facility]ospita release 12 00 every 12 l hr (twelve) hours. AMPYRA 10 2015-0 Yes 10mg Q12H 1 tablet [facility] cecil mg tablet 6-01 ([address] extended 00:00: total) [facility]ospita release 12 00 every 12 l hr (twelve) hours. AMPYRA 10 2015-0 Yes 10mg Q12H 1 tablet [facility] cecil mg tablet 6-01 ([address] extended 00:00: total) Hospita release 12 00 every 12 l hr (twelve) hours. AMPYRA 10 2015-0 Yes 10mg Q12H 1 tablet [facility] cecil mg tablet 6-01 ([address] extended 00:00: total) Hospita release 12 00 every 12 l hr (twelve) hours. AMPYRA 10 0 Yes 10mg Q12H 1 tablet [facility] mg tablet 6-01 ([address] extended 00:00: total) Hospita release 12 00 every 12 l hr (twelve) hours. AMPYRA 10 0 Yes 10mg Q12H 1 tablet [facility] c[facility] mg tablet 6-01 ([address] extended 00:00: total) Hospita release 12 00 every 12 l hr (twelve) hours. AMPYRA 10 0 Yes 10mg Q12H Take 1 Method i mg tablet 6-01 tablet (10 st extended 00:00: mg total) Hosp v[facility] release 12 00 by mouth l hr every 12 (twelve) hours. onabotulinu 0 No 500 unit, cristyriivone mtoxinA 08-26 Route: IM, l 19:00: Samuel GALVAN Dosing Weight 64.545, kg, Start date: 08/27/15 14:00:00, Duration: 30 day, Stop date: 09/26/15 13:59:00 onabotulinu 2015-0 No 500 unit[facility] Route: IM, l 19:00: ONCAlva TRAVIS Dosing Weight 64.545, kg, Start date: 08/27/15 14:00:00, Duration: 30 day, Stop date: 09/26/15 13:59:00 onabotulinu 2016-0 No 500 unit, Kush sweet mtoxinA 3-23 Route: IM, l 19:00: ONCALLSamuel Dosing Weight 64.545, kg, Start date: 08/27/15 14:00:00, Duration: 30 day, Stop date: 09/26/15 13:59:00 onabotulinu 2014-06 No 500 unit, Kush sweet mtoxinA 2 Route: IM, l 20:00: ONCALLSamuel Dosing Weight 65.909, kg, Start date: 05/14/15 14:00:00, Duration: 30 day, Stop date: 06/13/15 13:59:00 onabotulinu 2014-06 No 500 unit, Kush sweet mtoxinA 2 Route: IM, l 20:00: ONCALLSamuel Dosing Weight 65.909, kg, Start date: 05/14/15 14:00:00, Duration: 30 day, Stop date: 06/13/15 13:59:00 onabotulinu 2014-06 No 500 unit, Kush sweet mtoxinA 2 Route: IM, l 20:00: ONCALLSamuel Dosing Weight 65.909, kg, Start date: 05/14/15 14:00:00, Duration: 30 day, Stop date: 06/13/15 13:59:00 sodium 2015-0 Yes Notes: Memoria chloride 9-02 preservati l 23:00: ve free. Samuel 00 sodium 2015-0 Yes Notes: [facility] chloride 9-02 preservati l 23:00: ve free. [place] 00 sodium 2015-0 Yes Notes: [facility] chloride 9-02 preservati l 23:00: ve free. Samuel 00 onabotulinu 2014-0 No 600 unit, Kush sweet mtoxinA 02-05 Route: IM, l 22:00: [place] Dosing Weight 65.909, kg, Start date: 02/05/15 17:00:00, Duration: 30 day, Stop date: 03/07/15 16:59:00 onabotulinu 2015-0 No 600 unit, Kush sweet mtoxinA 9 Route: IM, l 22:00: ONCALL, Samuel 00 Dosing Weight 65.909, kg, Start date: 02/05/15 17:00:00, Duration: 30 day, Stop date: 03/07/15 16:59:00 onabotulinu 2015-0 No 600 unit, Kush sweet mtoxinA 02-05 Route: IM, l 22:00: ONCALL, Samuel 00 Dosing Weight 65.909, kg, Start date: 02/05/15 17:00:00, Duration: 30 day, Stop date: 03/07/15 16:59:00 onabotulinu 2015-0 No 600 unit, Kush sweet mtoxinA 11-06 Route: IM, l 21:00: ONCALL, [place] 00 Dosing Weight 65.909, kg, Start date: 11/06/14 16:00:00, Duration: 30 day, Stop date: 12/06/14 15:59:00 onabotulinu 2015-0 No 600 unit, Kush sweet mtoxinA 11-06 Route: IM, l 21:00: ONCALL, Samuel 00 Dosing Weight 65.909, kg, Start date: 11/06/14 16:00:00, Duration: 30 day, Stop date: 12/06/14 15:59:00 onabotulinu 2015-0 No 600 unit, Kush sweet mtoxinA 6- Route: IM, l 21:00: ONCALL, [place] 00 Dosing Weight 65.909, kg, Start date: 11/06/14 16:00:00, Duration: 30 day, Stop date: 12/06/14 15:59:00 onabotulinu 2015-0 No 400 unit, Kush sweet mtoxinA -04 Route: IM, l 20:00: ONCALL, Samuel 00 Dosing Weight 64.545, kg, Start date: 08/07/14 14:00:00, Duration: 30 day, Stop date: 09/06/14 14:59:00 onabotulinu 2015-0 No 400 unit, Kush munizria mtoxinA 3-04 Route: IM, l 20:00: ONCALL, [place] 00 Dosing Weight 64.545, kg, Start date: 08/07/14 14:00:00, Duration: 30 day, Stop date: 09/06/14 14:59:00 onabotulinu No 400 unit, Kush sweet mtoxinA 3-04 Route: IM, l 20:00: ONCALL, Samuel 00 Dosing Weight 64.545, kg, Start date: 08/07/14 14:00:00, Duration: 30 day, Stop date: 09/06/14 14:59:00 abotulinu 2013-06 No Notes: "TO Memoria mtoxinA 2-04 BE l 20:00: RECONSTITU Samuel 00 PERLITA AND ADMINISTER ED ONLY BY A PHYSICIAN" Reconstitu te with preservati ve free NS only. Stability = 4 hours after reconstitu tion. (Same As: Botox) Pass through med: charges in 1 unit increments . otulinu 2013-06 No Notes: "TO [facility]oria mtoxinA 2-04 BE l 20:00: RECONSTITU [place] 00 PERLITA AND ADMINISTER ED ONLY BY A PHYSICIAN" Reconstitu te with preservati ve free NS only. Stability = 4 hours after reconstitu tion. (Same As: Botox) Pass through med: charges in 1 unit increments . otulinu 2013-06 No Notes: "TO [facility] mtoxinA 2-04 BE l 20:00: RECONSTITU Samuel 00 PERLITA AND ADMINISTER ED ONLY BY A PHYSICIAN" Reconstitu te with preservati ve free NS only. Stability = 4 hours after reconstitu tion. (Same As: Botox) Pass through med: charges in 1 unit increments . abotulinu No Notes: "TO [facility] mtoxinA 9-02 BE l 19:00: RECONSTITU [place] 00 PERLITA AND ADMINISTER ED ONLY BY A PHYSICIAN" Reconstitu te with preservati ve free NS only. Stability = 4 hours after reconstitu tion. (Same As: Botox) abotulinu No Notes: "TO [facility] mtoxinA 9-02 BE l 19:00: RECONSTITU Samuel 00 PERLITA AND ADMINISTER ED ONLY BY A PHYSICIAN" Reconstitu te with preservati ve free NS only. Stability = 4 hours after reconstitu tion. (Same As: Botox) otulinu No Notes: "TO [facility]oria mtoxinA 9-02 BE l 19:00: RECONSTITU Samuel 00 PERLITA AND ADMINISTER ED ONLY BY A PHYSICIAN" Reconstitu te with preservati ve free NS only. Stability = 4 hours after reconstitu tion. (Same As: Botox) Tramadol Yes 50 mg, PO, Mem oria 02-05 Q4-6H, l 18:13: Pain, # 20 [place] 00 tab, 0 Refill(s) Tramadol Yes 50 mg, PO, Mem oria 02-05 Q4-6H, l 18:13: Pain, # 20 [place] 00 tab, 0 Refill(s) Tramadol Yes 50 mg, PO, Mem oria 02-05 Q4-6H, l 18:13: Pain, # 20 [place] 00 tab, 0 Refill(s) linaclotide Yes 245 mg Brien mora 0.145 MG 7-15 daily, 0 l Oral 19:58: Refill(s) [place] Capsule 00 [Linzess] linaclotide Yes 245 mg Brien mora 0.145 MG 7-15 daily, 0 l Oral 19:58: Refill(s) Samuel Capsule 00 [Linzess] linaclotide Yes 245 mg Brien mora 0.145 MG 7-15 daily, 0 l Oral 19:58: Refill(s) [place] Capsule 00 [Linzess] nortriptyli 2012-06 Yes 10 mg, 1 Me moria ne 10 mg 0-22 cap, PO, l oral 21:21: Daily, 90 [place] capsule 55 cap, Substituti on Allowed, CAP nortriptyli 2012-06 Yes 10 mg, 1 Me moria ne 10 mg 0-22 cap, PO, l oral 21:21: Daily, 90 Samuel capsule 55 cap, Substituti on Allowed, CAP nortriptyli 2012-06 Yes 10 mg, 1 Me moria ne 10 mg 0-22 cap, PO, l oral 21:21: Daily, 90 [place] capsule 55 cap, Substituti on Allowed, CAP Lidoderm 5% Yes 1 patch, Me moria topical 7-16 TOP, l film 18:54: Daily, Samuel (patch) 33 Substituti on Allowed Lidoderm 5% Yes 1 patch, Me moria topical 7-16 TOP, l film 18:54: Daily, Samuel (patch) 33 Substituti on Allowed Lidoderm 5% 2013-0 Yes 1 patch, Me moria topical 7-16 TOP, l film 18:54: Daily, Samuel (patch) 33 Substituti on Allowed MiraLax 2012-0 Yes 17 gm, PO, Brien mora 7-16 Daily, l 18:54: Substituti Samuel 12 on Allowed MiraLax 2013-0 Yes 17 gm, PO, Brien mora 7-16 Daily, l 18:54: Substituti Samuel 12 on Allowed MiraLax 2013-0 Yes 17 gm, PO, Brien mora 7-16 Daily, l 18:54: Substituti Samuel 12 on Allowed Toviaz 4 mg 2012-0 Yes 4 mg, 1 Mem oria oral 7-16 tab, PO, l tablet, 18:53: Daily, Samuel extended 27 Substituti release on Allowed Toviaz 4 mg 2012-0 Yes 4 mg, 1 Mem oria oral 7-16 tab, PO, l tablet, 18:53: Daily, Samuel extended 27 Substituti release on Allowed Toviaz 4 mg 2012-0 Yes 4 mg, 1 Mem oria oral 7-16 tab, PO, l tablet, 18:53: Daily, Samuel extended 27 Substituti release on Allowed Immunizations Ordered Immunization Filled Immunization Date Status Commen ts Source Name Name [facility] COVID-19 MRNA 2021-03-17 Completed [facility] VACCINATION 00:00:00 [facility] COVID-19 MRNA 2021-03-17 Completed Meth odist VACCINATION 00:00:00 [facility] COVID-19 MRNA 2021-03-17 Completed Meth odist VACCINATION 00:00:00 [facility] P[facility] COVID-19 MRNA 2021-03-17 Completed Meth odist VACCINATION 00:00:00 [facility] P[facility] COVID-19 MRNA 2021-03-17 Completed Meth odist VACCINATION 00:00:00 [facility] P[facility] COVID-19 MRNA 2021-03-17 Completed Meth odist VACCINATION 00:00:00 [facility] P[facility] COVID-19 MRNA 2021-03-17 Completed Meth odist VACCINATION 00:00:00 [facility] COVID-19 MRNA 2021-03-17 Completed Meth odist VACCINATION 00:00:00 [facility] COVID-19 MRNA 2021-03-17 Completed Meth odist VACCINATION 00:00:00 [facility] PFIZ[facility] COVID-19 MRNA 2020-08-21 Completed Meth odist VACCINATION 00:00:00 [facility] P[facility] COVID-19 MRNA 2020-08-21 Completed Meth odist VACCINATION 00:00:00 [facility] COVID-19 MRNA 2020-08-21 Completed Meth odist VACCINATION 00:00:00 [facility] P[facility] COVID-19 MRNA 2020-08-21 Completed Meth odist VACCINATION 00:00:00 [facility] P[facility] COVID-19 MRNA 2020-08-21 Completed Meth odist VACCINATION 00:00:00 [facility] P[facility] COVID-19 MRNA 2020-08-21 Completed Meth odist VACCINATION 00:00:00 [facility] PFI[facility] COVID-19 MRNA 2020-08-21 Completed Meth odist VACCINATION 00:00:00 [facility] P[facility] COVID-19 MRNA 2020-08-21 Completed Meth odist VACCINATION 00:00:00 [facility] PFI[facility] COVID-19 MRNA 2020-08-21 Completed Meth odist VACCINATION 00:00:00 [facility] PFI[facility] COVID-19 MRNA 2020-07-31 Completed Meth odist VACCINATION 00:00:00 [facility] COVID-19 MRNA 2020-07-31 Completed Meth odist VACCINATION 00:00:00 [facility] P[facility] COVID-19 MRNA 2020-07-31 Completed Meth odist VACCINATION 00:00:00 [facility] P[facility] COVID-19 MRNA 2020-07-31 Completed Meth odist VACCINATION 00:00:00 [facility] P[facility] COVID-19 MRNA 2020-07-31 Completed Meth odist VACCINATION 00:00:00 [facility] PFI[facility] COVID-19 MRNA 2020-07-31 Completed Meth odist VACCINATION 00:00:00 [facility] P[facility] COVID-19 MRNA 2020-07-31 Completed Meth odist VACCINATION 00:00:00 [facility] P[facility] COVID-19 MRNA 2020-07-31 Completed Meth odist VACCINATION 00:00:00 [facility] PFI[facility] COVID-19 MRNA 2020-07-31 Completed Meth odist VACCINATION 00:00:00 Hospital Vital Signs Vital Name Observation Time Observation Value Comments Source HEIGHT 2021-08-25 172.7 cm 08:59:00 WEIGHT 2021-08-25 59.6 kg 08:59:00 HEIGHT 2021-08-24 172.7 cm 08:40:00 WEIGHT 2021-08-24 61.236 kg 08:40:00 HEIGHT 2021-08-13 162.6 cm 11:28:00 WEIGHT 2021-08-13 61.236 kg 11:28:00 HEIGHT 2021-08-25 172.7 cm 08:59:00 WEIGHT 2021-08-25 59.6 kg 08:59:00 HEIGHT 2021-08-24 172.7 cm 08:40:00 WEIGHT 2021-08-24 61.236 kg 08:40:00 HEIGHT 2021-08-13 162.6 cm 11:28:00 WEIGHT 2021-08-13 61.236 kg 11:28:00 HEIGHT 2021-07-01 162.6 cm 10:57:00 WEIGHT 2021-07-01 64.411 kg 10:57:00 HEIGHT 2021-07-01 162.6 cm 10:57:00 WEIGHT 2021-07-01 64.411 kg 10:57:00 HEIGHT 2021-06-14 172.7 cm 08:23:00 WEIGHT 2021-06-14 55.2 kg 08:23:00 HEIGHT 2021-06-14 172.7 cm 08:23:00 WEIGHT 2021-06-14 55.2 kg 08:23:00 HEIGHT 2021-06-09 172.7 cm 08:26:00 WEIGHT 2021-06-09 63.504 kg 08:26:00 HEIGHT 2021-06-09 172.7 cm 08:26:00 WEIGHT 2021-06-09 63.504 kg 08:26:00 WEIGHT 2020-06-10 63 kg 09:38:00 WEIGHT 2020-05-21 63 kg 13:23:00 HEIGHT 2020-02-26 170.5 cm 12:27:00 WEIGHT 2020-02-26 62.2 kg 12:27:00 Systolic blood 2022-10-19 108 mm[Hg] [facility] pressure 22:53:00 Hospital Diastolic blood 2022-10-19 64 mm[Hg] [facility] pressure 22:53:00 Hospital Heart rate 2022-10-19 89 /min [facility] 22:53:00 [facility] Respiratory rate 2022-10-19 16 /min [facility] 22:53:00 Hospital Body height 2022-10-19 172.7 cm [facility] 22:53:00 Hospital Body weight 2022-10-19 52.617 kg [facility] 22:53:00 Hospital BMI 2022-10-19 17.64 kg/m2 [facility] 22:53:00 Hospital Oxygen saturation 2022-10-19 95 /min [facility] in Arterial blood 22:53:00 Hospital by Pulse oximetry Body temperature 2022-09-09 36.17 Rebecca [facility] 12:49:59 Hospital Systolic blood 2022-04-01 92 mm[Hg] [facility] pressure 20:10:47 Hospital Diastolic blood 2022-04-01 50 mm[Hg] [facility] pressure 20:10:47 Hospital Heart rate 2022-04-01 95 /min [facility] 20:10:47 Hospital Body temperature 2022-04-01 36.44 Rebecca [facility] 20:10:47 Hospital Respiratory rate 2022-04-01 18 /min [facility] 20:10:47 Hospital Oxygen saturation 2022-04-01 98 /min [facility] in Arterial blood 20:10:47 [facility] by Pulse oximetry Systolic blood 2022-03-30 86 mm[Hg] [facility] pressure 20:25:30 Hospital Diastolic blood 2022-03-30 54 mm[Hg] [facility] pressure 20:25:30 Hospital Heart rate 2022-03-30 89 /min [facility] 20:25:30 Hospital Body temperature 2022-03-30 36.06 Rebecca [facility] 20:25:30 Hospital Respiratory rate 2022-03-30 18 /min [facility] 20:25:30 Hospital Oxygen saturation 2022-03-30 99 /min [facility] in Arterial blood 20:25:30 [facility] by Pulse oximetry Body height 2022-03-29 172.7 cm [facility] 21:43:00 Hospital Body weight 2022-03-29 55.792 kg [facility] 21:43:00 Hospital BMI 2022-03-29 18.70 kg/m2 [facility] 21:43:00 Hospital Heart rate 2022-03-05 101 /min [facility] 19:05:00 Hospital Respiratory rate 2022-03-05 18 /min [facility] 19:05:00 Hospital Oxygen saturation 2022-03-05 99 /min [facility] in Arterial blood 19:05:00 [facility] by Pulse oximetry Systolic blood 2022-03-05 90 mm[Hg] [facility] pressure 16:11:54 Hospital Diastolic blood 2022-03-05 55 mm[Hg] [facility] pressure 16:11:54 Hospital Body temperature 2022-03-05 35.61 Rebecca [facility] 16:11:54 Hospital Body height 2022-02-25 172.7 cm [facility] 07:13:00 Hospital Body weight 2022-02-25 56.155 kg [facility] 07:13:00 [facility] BMI 2022-02-25 18.82 kg/m2 [facility] 07:13:00 [facility] Systolic blood 2021-08-25 148 mm[Hg] [facility] pressure 17:23:00 [facility] Diastolic blood 2021-08-25 81 mm[Hg] [facility] pressure 17:23:00 [facility] Heart rate 2021-08-25 79 /min [facility] 17:23:00 [facility] Body temperature 2021-08-[address] [facility] 17:23:00 [facility] Oxygen saturation 2021-08-25 99 /min [facility] in Arterial blood 17:23:00 [facility] by Pulse oximetry Respiratory rate 2021-08-25 15 /min [facility] 16:45:00 [facility] Body height 2021-08-[address] [facility] 08:59:00 [facility] Body weight 2021-08-[address] [facility] 08:59:00 [facility] BMI 2021-08-25 19.98 kg/m2 [facility] 08:59:00 [facility] Respitory Rate 2021-04-23 [facility] 00:30:00 Systolic (mm Hg) 2021-04-23 [facility] rmann 00:30:00 Diastolic (mm Hg) 2021-04-23 [facility] ermann 00:30:00 Respitory Rate 2021-04-22 [facility] 23:45:00 Systolic (mm Hg) 2021-04-22 [facility] rmann 23:45:00 Diastolic (mm Hg) 2021-04-22 [facility] ermann 23:45:00 Respitory Rate 2021-04-22 [facility] 23:30:00 Systolic (mm Hg) 2021-04-22 [facility] rmann 23:30:00 Diastolic (mm Hg) 2021-04-22 [facility] ermann 23:30:00 Heart Rate 2021-04-21 Vandana Bryant n 18:21:00 Height 2021-04-21 172.72 cm [facility] n 17:52:00 Weight 2021-04-21 [facility] 17:52:00 BMI Calculated 2021-04-21 [facility] 17:52:00 BP Systolic 2018-10-03 115 mm[Hg] [facility] 14:50:00 BP Diastolic 2018-10-03 78 mm[Hg] [facility] 14:50:00 Heart Rate 2018-10-03 95 /min [facility] 14:50:00 Height 2018-08-23 68 [in_us] [facility] 09:34:00 Weight 2018-08-23 144 [lb_av] [facility] 09:34:00 Body Mass Index 2018-08-23 21.9 kg/m2 [facility] 09:34:00 BMI Calculated 2018-08-01 [facility] 19:49:00 Weight 2018-08-01 [facility] 19:49:00 Height 2018-08-01 172.72 cm [facility] n 19:49:00 Heart Rate 2018-08-01 [facility] n 19:49:00 Systolic (mm Hg) 2018-08-01 [facility] 19:49:00 Diastolic (mm Hg) 2018-08-01 [facility] 19:49:00 Systolic (mm Hg) 2018-02-20 [facility] 20:00:00 Diastolic (mm Hg) 2018-02-20 [facility] 20:00:00 Respitory Rate 2018-02-20 [facility] 20:00:00 Systolic (mm Hg) 2018-02-20 [facility] 19:45:00 Diastolic (mm Hg) 2018-02-20 [facility] 19:45:00 Respitory Rate 2018-02-20 [facility] 19:45:00 Respitory Rate 2018-02-20 [facility] 19:30:00 Systolic (mm Hg) 2018-02-20 [facility] 19:30:00 Diastolic (mm Hg) 2018-02-20 [facility] 19:30:00 BMI Calculated 2018-02-20 [facility] 17:00:00 Weight 2018-02-20 [facility] 17:00:00 Height 2018-02-15 172.72 cm [facility] 13:43:00 BP Diastolic 2018-01-11 62 mm[Hg] Location: LUE; [facility] 11:54:00 Height 2018-01-11 68 [in_us] [facility] 11:54:00 Weight 2018-01-11 143 [lb_av] [facility] 11:54:00 Body Mass Index 2018-01-11 21.74 kg/m2 [facility] Cal[facility] 11:54:00 Temperature 2018-01-11 97.4 [degF] Method: Oral [facility] 11:54:00 Heart Rate 2018-01-11 95 /min Location: L [facility] 11:54:00 Brachial Artery; BP Systolic 2018-01-11 101 mm[Hg] Location: LUE; [facility] 11:54:00 Height 2017-11-09 172.72 cm [facility] 17:58:00 BMI Calculated 2017-11-09 [facility] 17:58:00 Weight 2017-11-09 [facility] 17:58:00 Respitory Rate 2017-11-09 [facility] 17:58:00 Heart Rate 2017-11-09 [facility] 17:58:00 Systolic (mm Hg) 2017-11-09 [facility] 17[facility]58:00 Diastolic (mm Hg) 2017-11-09 [facility] 17:58:00 Systolic (mm Hg) 2017-10-05 [facility] 14:15:00 Diastolic (mm Hg) 2017-10-05 [facility] 14:15:00 Heart Rate 2017-10-05 [facility] 14:15:00 Respitory Rate 2017-10-05 [facility] 14:15:00 BMI Calculated 2017-10-05 [facility] 14:15:00 Weight 2017-10-05 [facility] 14:15:00 Height 2017-10-05 172.72 cm [facility] 14:15:00 Height 2017-05-11 172.72 cm [facility] 16:13:00 Heart Rate 2017-05-11 [facility] 16:13:00 Respitory Rate 2017-05-11 [facility] 16:13:00 Systolic (mm Hg) 2017-05-11 [facility] 16:13:00 Diastolic (mm Hg) 2017-05-11 [facility] 16:13:00 Weight 2017-05-11 [facility] 16:13:00 BMI Calculated 2017-05-11 [facility] 16:13:00 Weight 2017-03-10 [facility] 21:40:00 BMI Calculated 2017-03-10 [facility] 21:40:00 Heart Rate 2017-03-10 [facility] 21:40:00 Respitory Rate 2017-03-10 [facility] 21:40:00 Systolic (mm Hg) 2017-03-10 [facility] 21:40:00 Diastolic (mm Hg) 2017-03-10 [facility] 21:40:00 Height 2017-03-10 172.72 cm [facility] 21:40:00 Respitory Rate 2017-02-09 [facility] 15:44:00 Height 2017-02-09 172.72 cm [facility] 15:44:00 BMI Calculated 2017-02-09 [facility] 15:44:00 Weight 2017-02-09 [facility] 15:44:00 Systolic (mm Hg) 2017-02-09 [facility] 15:44:00 Diastolic (mm Hg) 2017-02-09 [facility] 15:44:00 Heart Rate 2017-01-26 [facility] 22:11:00 Respitory Rate 2017-01-26 [facility] 22:11:00 Systolic (mm Hg) 2017-01-26 [facility] 22:11:00 Diastolic (mm Hg) 2017-01-26 [facility] 22:11:00 Weight 2017-01-26 [facility] 22:11:00 BMI Calculated 2017-01-26 [facility] 22:11:00 Height 2017-01-26 172.72 cm [facility] 22:11:00 BMI Calculated 2017-01-05 [facility] 16:55:00 Weight 2017-01-05 [facility] 16:55:00 Height 2017-01-05 172.72 cm [facility] 16:55:00 Respitory Rate 2017-01-05 [facility] 16:55:00 Weight 2016-12-15 [facility] 21:56:00 BMI Calculated 2016-12-15 [facility] 21:56:00 Height 2016-12-15 172.72 cm [facility] 21:56:00 Systolic (mm Hg) 2016-12-15 [facility] 21:56:00 Diastolic (mm Hg) 2016-12-15 [facility] 21:56:00 Respitory Rate 2016-12-15 [facility] 21:56:00 BMI Calculated 2016-11-10 [facility] 14:36:00 Weight 2016-11-10 [facility] 14:36:00 Height 2016-11-10 172.72 cm [facility] 14:36:00 Respitory Rate 2016-11-10 [facility] 14:36:00 Heart Rate 2016-11-10 [facility] 14:36:00 Systolic (mm Hg) 2016-11-10 [facility] 14:36:00 Diastolic (mm Hg) 2016-11-10 [facility] 14:36:00 Weight 2016-10-28 [facility] 20:25:00 BMI Calculated 2016-10-28 [facility] 20:25:00 Height 2016-10-28 172.72 cm [facility] 20:25:00 Heart Rate 2016-10-28 [facility] 20:25:00 Respitory Rate 2016-10-28 [facility] 20:25:00 Systolic (mm Hg) 2016-10-28 [facility] 20:25:00 Diastolic (mm Hg) 2016-10-28 [facility] 20:25:00 Weight 2016-10-20 [facility] 21:20:00 BMI Calculated 2016-10-20 [facility] 21:20:00 Height 2016-10-20 172.72 cm [facility] 21:20:00 Systolic (mm Hg) 2016-10-20 [facility] 21:20:00 Diastolic (mm Hg) 2016-10-20 [facility] 21:20:00 Heart Rate 2016-10-20 [facility] 21:20:00 Respitory Rate 2016-10-20 [facility] 21:20:00 Heart Rate 2016-10-14 [facility] 22:10:00 BMI Calculated 2016-10-14 [facility] 20:35:00 Weight 2016-10-14 [facility] 20:35:00 Respitory Rate 2016-10-14 [facility] 20:35:00 Height 2016-10-14 172.72 cm [facility] 20:35:00 Systolic (mm Hg) 2016-10-14 [facility] 20:35:00 Diastolic (mm Hg) 2016-10-14 [facility] 20:35:00 Heart Rate 2016-10-14 [facility] 20:35:00 Systolic (mm Hg) 2016-10-08 [facility] 21:19:00 Diastolic (mm Hg) 2016-10-08 [facility] 21:19:00 Heart Rate 2016-10-08 [facility] 21:19:00 Respitory Rate 2016-10-08 [facility] 21:19:00 Height 2016-10-08 172.72 cm [facility] 21:19:00 Weight 2016-10-08 [facility] 21:19:00 BMI Calculated 2016-10-08 [facility] 21:19:00 Systolic (mm Hg) 2016-09-15 [facility] 18:47:00 Diastolic (mm Hg) 2016-09-15 [facility] 18:47:00 Respitory Rate 2016-09-15 [facility] 18:47:00 Heart Rate 2016-09-15 [facility] 18:47:00 BMI Calculated 2016-09-15 [facility] 18:47:00 Weight 2016-09-15 [facility] Height 2016-09-15 172.72 cm [facility] 18:47[facility]00 BMI Calculated 2016-07-29 [facility] 21:19:00 Weight 2016-07-29 [facility] 21:19:00 Height 2016-07-29 172.72 cm [facility] 21:19:00 Respitory Rate 2016-07-29 [facility] 21:19:00 Height 2016-07-01 172.72 cm [facility] 19:51:00 Respitory Rate 2016-07-01 [facility] 19:51:00 Heart Rate 2016-07-01 [facility] 19:51:00 Systolic (mm Hg) 2016-07-01 [facility] 19:51:00 Diastolic (mm Hg) 2016-07-01 [facility] 19:51:00 Weight 2016-06-11 [facility] 20:55:00 BMI Calculated 2016-06-11 [facility] 20:55:00 Height 2016-06-11 172.72 cm [facility] 20:55:00 Respitory Rate 2016-06-11 [facility] 20:55:00 Weight 2016-06-02 [facility] 20:48:00 Height 2016-06-02 172.72 cm [facility] 20:48:00 BMI Calculated 2016-06-02 [facility] 20:48:00 Respitory Rate 2016-06-02 [facility] 20:48:00 Heart Rate 2016-06-02 [facility] 20:48:00 Systolic (mm Hg) 2016-06-02 [facility] 20:48:00 Diastolic (mm Hg) 2016-06-02 [facility] 20:48:00 Weight 2016-05-20 [facility] 20[facility]09:00 BMI Calculated 2016-05-20 [facility] 20:09:00 Height 2016-05-20 172.72 cm [facility] 20:09:00 Respitory Rate 2016-05-20 [facility] 20:09:00 Heart Rate 2016-05-20 [facility] 20:09:00 Systolic (mm Hg) 2016-05-20 [facility] 20:09:00 Diastolic (mm Hg) 2016-05-20 [facility] 20:09:00 Height 2016-03-18 172.72 cm [facility] 19:17:00 BMI Calculated 2016-03-18 [facility] 19:17:00 Weight 2016-03-18 [facility] 19:17:00 Heart Rate 2016-03-18 [facility] 19:17:00 Systolic (mm Hg) 2016-03-18 [facility] 19:17:00 Diastolic (mm Hg) 2016-03-18 [facility] 19:17:00 Respitory Rate 2016-03-18 [facility] 19:17:00 Weight 2016-03-03 [facility] 19:20:00 BMI Calculated 2016-03-03 [facility] 19:20:00 Height 2016-03-03 172.72 cm [facility] 19:20:00 Respitory Rate 2016-03-03 [facility] 19:20:00 Heart Rate 2016-03-03 [facility] 19:20:00 Systolic (mm Hg) 2016-03-03 [facility] 19:20:00 Diastolic (mm Hg) 2016-03-03 [facility] 19:20:00 Height 2016-03-03 172.72 cm [facility] 18:19:00 BMI Calculated 2016-03-03 [facility] 18:19:00 Weight 2016-03-03 [facility] 18:19:00 Respitory Rate 2016-03-03 [facility] 18:19:00 Systolic (mm Hg) 2016-03-03 [facility] 18:19:00 Diastolic (mm Hg) 2016-03-03 [facility] 18:19:00 Heart Rate 2016-03-03 [facility] 18:19:00 Height 2015-12-03 157.48 cm [facility] 16:02:00 BMI Calculated 2015-12-03 [facility] 16:02:00 Weight 2015-12-03 [facility] 16:02:00 Systolic (mm Hg) 2015-12-03 [facility] 16:02:00 Diastolic (mm Hg) 2015-12-03 [facility] 16:02:00 Heart Rate 2015-12-03 [facility] 16:02:00 Respitory Rate 2015-12-03 [facility] 16:02:00 BMI Calculated 2015-08-27 [facility] 16:44:00 Weight 2015-08-27 [facility] 16:44:00 Height 2015-08-27 172.72 cm [facility] 16:44:00 Respitory Rate 2015-08-27 [facility] 16:44:00 Systolic (mm Hg) 2015-08-27 [facility] 16:44:00 Diastolic (mm Hg) 2015-08-27 [facility] 16:44:00 Heart Rate 2015-08-27 [facility] 16:44:00 Respitory Rate 2015-06-17 [facility] 20:55:00 Systolic (mm Hg) 2015-06-17 [facility] 20:55:00 Diastolic (mm Hg) 2015-06-17 [facility] 20:55:00 Height 2015-05-14 172.72 cm [facility] 16:53:00 Weight 2015-05-14 [facility] 16:53:00 BMI Calculated 2015-05-14 [facility] 16:53:00 Respitory Rate 2015-05-14 [facility] 16:53:00 Heart Rate 2015-05-14 [facility] 16:53:00 Systolic (mm Hg) 2015-05-14 [facility] 16:53:00 Diastolic (mm Hg) 2015-05-14 [facility] 16:53:00 Height 2015-02-05 172.72 cm [facility] 19:55:00 Weight 2015-02-05 [facility] 19:55:00 BMI Calculated 2015-02-05 [facility] 19:55:00 Heart Rate 2015-02-05 [facility] 19:55:00 Systolic (mm Hg) 2015-02-05 [facility] 19:55:00 Diastolic (mm Hg) 2015-02-05 [facility] 19:55:00 Respitory Rate 2015-02-05 [facility] 19:55:00 Heart Rate 2014-11-06 [facility] 19:38:00 Respitory Rate 2014-11-06 [facility] 19:38:00 Height 2014-11-06 172.72 cm [facility] 19:38:00 Temperature Oral 2014-11-06 98.2 F [facility] (F) 19:38:00 Systolic (mm Hg) 2014-11-06 [facility] 19:38:00 Diastolic (mm Hg) 2014-11-06 [facility] 19:38:00 Heart Rate 2014-08-07 [facility] 16:35:00 Respitory Rate 2014-08-07 [facility] 16:35:00 Systolic (mm Hg) 2014-08-07 [facility] 16:35:00 Diastolic (mm Hg) 2014-08-07 [facility] 16:35:00 Weight 2014-08-07 [facility] 16:35:00 BMI Calculated 2014-08-07 [facility] 16:35:00 Height 2014-08-07 172.72 cm [facility] 16:35:00 Heart Rate 2014-05-09 [facility] 19:23:00 Respitory Rate 2014-05-09 [facility] 19:23:00 Systolic (mm Hg) 2014-05-09 [facility] 19:23:00 Diastolic (mm Hg) 2014-05-09 [facility] 19:23:00 BMI Calculated 2014-05-09 [facility] 19:23:00 Weight 2014-05-09 [facility] 19:23:00 Height 2014-05-09 172.72 cm [facility] 19:23:00 BMI Calculated 2014-02-05 [facility] 18:06:00 Weight 2014-02-05 [facility] 18:06:00 Height 2014-02-05 172.72 cm [facility] 18:06:00 Heart Rate 2014-02-05 [facility] 18:06:00 Respitory Rate 2014-02-05 [facility] 18:06:00 Systolic (mm Hg) 2014-02-05 [facility] 18:06:00 Diastolic (mm Hg) 2014-02-05 [facility] 18:06:00 Weight 2014-01-14 [facility] 16:13:00 Height 2014-01-14 172.72 cm [facility] 16:13:00 BMI Calculated 2014-01-14 [facility] 16:13:00 Respitory Rate 2014-01-14 [facility] 16:13:00 Systolic (mm Hg) 2014-01-14 [facility] 16:13:00 Heart Rate 2014-01-14 [facility] 16:13:00 Diastolic (mm Hg) 2014-01-14 [facility] 16:13:00 Weight 2013-12-18 [facility] 19:51:00 Heart Rate 2013-12-18 [facility] 19:51:00 Systolic (mm Hg) 2013-12-18 [facility] 19:51:00 Respitory Rate 2013-12-18 [facility] 19:51:00 Diastolic (mm Hg) 2013-12-18 [facility] 19:51:00 Height 2013-12-18 172.72 cm [facility] 19:51:00 BMI Calculated 2013-12-18 [facility] 19:51:00 Height 2013-07-10 170.18 cm [facility] 21:35:00 Weight 2013-07-10 [facility] 21:35:00 Temperature Oral 2013-07-10 97.3 F [facility] (F) 21:35:00 Systolic (mm Hg) 2013-07-10 [facility] 21:35:00 Respitory Rate 2013-07-10 [facility] 21:35:00 Diastolic (mm Hg) 2013-07-10 [facility] 21[facility]35:00 Heart Rate 2013-07-10 [facility] 21:35:00 Weight 2013-03-27 [facility] 21:35:00 Height 2013-03-27 172.72 cm [facility] 21:35:00 Diastolic (mm Hg) 2013-03-27 [facility] 21:22:00 Respitory Rate 2013-03-27 [facility] 21:22:00 Heart Rate 2013-03-27 [facility] 21:22:00 Systolic (mm Hg) 2013-03-27 [facility] 21:22:00 Systolic (mm Hg) 2013-01-10 [facility] 14:41:00 Heart Rate 2013-01-10 [facility] 14:41:00 Diastolic (mm Hg) 2013-01-10 [facility] 14:41:00 Respitory Rate 2013-01-10 [facility] 14:41:00 Height 2013-01-10 172.72 cm [facility] 14:41:00 Weight 2013-01-10 [facility] 14:41:00 Weight 2012-12-19 [facility] 18:55:00 Height 2012-12-19 172.72 cm [facility] 18:55:00 Systolic (mm Hg) 2012-12-19 [facility] 18:55:00 Heart Rate 2012-12-19 [facility] 18:55:00 Diastolic (mm Hg) 2012-12-19 [facility] 18:55:00 Respitory Rate 2012-12-19 [facility] 18:55:00 Heart Rate 2012-10-11 [facility] 21:47:00 Systolic (mm Hg) 2012-10-11 [facility] 21:47:00 Respitory Rate 2012-10-11 [facility] 21:47:00 Diastolic (mm Hg) 2012-10-11 [facility] 21:47:00 Weight 2012-10-11 [facility] 21:47:00 Height 2012-10-11 172.72 cm [facility] 21:47:00 Height 2012-08-25 173 cm [facility] 22:25:00 Weight 2012-08-24 [facility] 15:13:00 Height 2012-08-24 172.72 cm [facility] 15:13:00 Respitory Rate 2012-08-24 [facility] 15:08:00 Heart Rate 2012-08-24 [facility] 15:08:00 Temperature Oral 2012-08-24 97.1 F [facility] (F) 15:08:00 Diastolic (mm Hg) 2012-08-24 [facility] 15:08:00 Systolic (mm Hg) 2012-08-24 [facility] 15:08:00 Height 2012-07-18 172.72 cm [facility] 21:28:00 Procedures Procedure Date / Time Performing Clinician Source Performed CBC WITH PLATELET AND 2022-09-[address] [facility] DIFFERENTIAL 10:56:00 [facility] 2022-09-09 [facility] PANEL 10:56:00 MAGNESIUM LEVEL 2022-09-09 [facility], [facility] 10:56:00 PHOSPHORUS LEVEL 2022-09-09 [facility], [facility] bryan 10:56:00 ESTIMATED GFR 2022-09-09 [facility], [facility] 10:56:00 MRI BRAIN W WO CONTRAST 2022-09-09 [facility] 08:40:42 X RAYS NO CHARGE MRI [facility]22-09-[facility] 14:26:51 CBC WITH PLATELET AND 2022-09-[address] [facility] DIFFERENTIAL 10:21:00 [facility] 2022-09-08 [facility] PANEL 10:21:00 MAGNESIUM LEVEL 2022-09-08 [facility], [facility] 10:21:00 PHOSPHORUS LEVEL 2022-09-08 [facility], [facility] bryan 10:21:00 LACTIC ACID LEVEL 2022-09-08 [facility] 10:21:00 ESTIMATED GFR 2022-09-08 [facility] 10:21:00 LACTIC ACID LEVEL, SEPSIS - 2022-09-07 [facility] NOW AND REPEAT 2X EVERY 3 10:13:00 HOURS CBC WITH PLATELET AND 2022-09-07 [facility] DIFFERENTIAL 10:13:00 [facility] 2022-09-07 [facility] PANEL 10:13:00 PROTHROMBIN TIME WITH INR 2022-09-07 [facility] 10:13:00 MAGNESIUM LEVEL 2022-09-07 [facility] 10:13:00 PHOSPHORUS LEVEL 2022-09-07 [facility] bryan 10:13:00 TROPONIN T 2022-09-07 [facility] 10:13:00 ESTIMATED GFR 2022-09-07 [facility] 10:13:00 TROPONIN T 2022-09-07 [facility] 06:40:00 THYROID STIMULATING HORMONE 2022-09-07 [facility] 06:40:00 T4, FREE 2022-09-07 [facility] 06:40:00 VITAMIN B12 LEVEL 2022-09-07 [facility] 06:40:00 FOLATE LEVEL 2022-09-07 [facility] 06:40:00 HIV 1/2 ANTIGEN/ANTIBODY, 2022-09-07 [facility] FOURTH GENERATION, WITH 06:40:00 REFLEXES SYPHILIS TREPONEMA SCREEN 2022-09-07 [facility] WITH RPR CONFIRMATION 06:40:00 (REVERSE ALGORITHM) VITAMIN B1 (THIAMINE) 2022-09-[address] [facility] 06:40:00 HEMOGLOBIN A1C 2022-09-07 [facility] 06:40:00 LIPID PANEL 2022-09-07 [facility] 06:40:00 ANTINUCLEAR ANTIBODIES 2022-09-[address] [facility] (BRIAN) WITH REFLEX TO TITER 06:40:00 AND PATTERN, IMMUNOFLUORESCENCE PROCALCITONIN 2022-09-07 [facility] 06:40:00 SEDIMENTATION RATE 2022-09-07 [facility] 06:40:00 C-REACTIVE PROTEIN 2022-09-07 [facility] pital 06:40:00 VENOUS BLOOD GAS 2022-09-07 [facility] bryan 06:35:00 BLOOD CULTURE, AEROBIC & 2022-09-07 [facility] ANAEROBIC 06:20:00 BLOOD CULTURE, AEROBIC & 2022-09-07 [facility] ANAEROBIC 06:00:00 LACTIC ACID LEVEL, SEPSIS - 2022-09-07 [facility] NOW AND REPEAT 2X EVERY 3 03:31:[address] CHEST WO CONTRAST 2022-09-07 [facility] 01:55:52 CT HEAD WO CONTRAST 2022-09-07 [facility] 00:09:12 XR CHEST 1 VW PORTABLE 2022-09-06 [facility] 23:38:08 COVID-19, INFLUENZA A&B, 2022-09-06 [facility] AND RSV QUALITATIVE RT-PCR 23:22:00 AMMONIA LEVEL 2022-09-06 [facility] 23:22:00 URINE CULTURE 2022-09-06 [facility] 23:21:00 CBC WITH PLATELET AND 2022-09-06 [facility] DIFFERENTIAL 23:21:00 PROTHROMBIN TIME WITH INR 2022-09-06 [facility] 23:21:00 COMPREHENSIVE METABOLIC 2022-09-06 [facility] PANEL 23:21:00 URINALYSIS SCREEN AND 2022-09-06 [facility] MICROSCOPY, WITH REFLEX TO 23:21:00 CULTURE TROPONIN T 2022-09-06 [facility] 23:21:00 B NATRIURETIC PEPTIDE 2022-09-06 [facility] 23:21:00 LACTIC ACID LEVEL, SEPSIS - 2022-09-06 [facility] NOW AND REPEAT 2X EVERY 3 23:21:00 HOURS ESTIMATED GFR 2022-09-06 [facility] 23:21:00 ECG ED PRELIMINARY 2022-09-06 [facility] ospital INTERPRETATION 23:15:21 ECG 12-LEAD 2022-09-06 [facility] 23:10:28 URINALYSIS SCREEN AND 2022-08-27 [facility] MICROSCOPY, WITH REFLEX TO 20:45:[address] HEAD WO CONTRAST 2022-08-27 [facility] spital 19:16:16 Sangeeth Joywin US DUPLEX ARTERIAL LOWER 2022-08-27 [facility] EXTREMITY RIGHT 18:49:00 Sangeeth Joywin US DUPLEX VENOUS LOWER 2022-08-27 [facility] EXTREMITY RIGHT 18:49:00 Sangeeth Joywin XR CHEST 1 VW PORTABLE 2022-08-27 [facility] 18:22:05 Sangeeth Joywin XR KNEE 4+ VW RIGHT 2022-08-27 [facility] Ho spital 18:21:45 Sangeeth Joywin ECG 12-LEAD 2022-08-27 [facility] 18:05:49 Sangeeth Joywin LACTIC ACID LEVEL, SEPSIS - 2022-08-27 [facility] NOW AND REPEAT 2X EVERY 3 17:49:00 Sangeeth Joywin HOURS CBC WITH PLATELET AND 2022-08-27 [facility] DIFFERENTIAL 17:49:00 Sangeeth Joywin COMPREHENSIVE METABOLIC 2022-08-27 [facility] PANEL 17:49:00 Sangeeth Joywin MAGNESIUM LEVEL [facility]22[facility]08-27 [facility] Sangeeth Joywin CREATINE KINASE, TOTAL 2022-08-27 [facility] (CPK) 17:49:00 Sangeeth Joywin PROTHROMBIN TIME WITH INR 2022-08-27 [facility] 17:49:00 Sangeeth Joywin PARTIAL THROMBOPLASTIN TIME 2022-08-27 [facility] (PTT) 17:49:00 Sangeeth Joywin ESTIMATED GFR 2022-08-27 [facility] 17:49[facility]00 Sangeeth Joywin URINE CULTURE 2022-08-27 [facility] al 17:47:00 Sangeeth Joywin ECG ED PRELIMINARY 2022-08-27 [facility] INTERPRETATION 17:36:30 Sangeeth Joywin URIC ACID LEVEL 2022-04-01 Arturo [facility]addist [facility] spital 12:54:00 HC COMPLETE BLD COUNT 2022-04-01 Julee [facility] W/AUTO DIFF 08:24:00 LACTIC ACID LEVEL 2022-03-31 Arturo Ladd [facility] 21:04:00 POTASSIUM LEVEL 2022-03-30 Arturo [facility]addist [facility] spital 17:24:00 URIC ACID LEVEL 2022-03-30 Negin Tan [facility] Ho spital 11:05:00 HC COMPLETE BLD COUNT 2022-03-30 Dominick [facility] W/AUTO DIFF 08:34:00 CBC WITH PLATELET AND 2022-03-30 [facility] DIFFERENTIAL 08:34:00 BASIC METABOLIC PANEL 2022-03-30 Tan, [facility] 08:34:00 ESTIMATED GFR 2022-03-30 Tan, [facility] Ho spital 08:34:00 ESTIMATED GFR 2022-03-30 Tan, [facility] spital 08:23:00 ZZCOVID-19 ANTI-SPIKE IGG 2022-03-30 Tan, [facility] ANTIBODY TITER 03:53:00 LACTIC ACID LEVEL, SEPSIS - 2022-03-30 [place], [facility] NOW AND REPEAT 2X EVERY 3 03:53:00 HOURS LACTIC ACID LEVEL, SEPSIS - 2022-03-30 Tan, [facility] NOW AND REPEAT 2X EVERY 3 03:53:00 HOURS ZZCOVID-19 SEROLOGY PATIENT 2022-03-30 Tan, [facility] SURVEILLANCE 03:53:00 COVID-19 ANTI-SPIKE IGG 2022-03-30 Tan, [facility] ANTIBODY TITER 03:43:00 URINALYSIS SCREEN AND 2022-03-30 [facility], WITH [facility]FLEX TO 01:54:00 CULTURE URINALYSIS SCREEN AND 2022-03-30 [facility], WITH REFLEX TO 01:54:00 CULTURE COVID-19 QUALITATIVE RT-PCR 2022-03-30 Bobby Marcel [facility] 01:33:00 LACTIC ACID LEVEL, SEPSIS - 2022-03-30 Tan, [facility] NOW AND REPEAT 2X EVERY 3 01:33:00 HOURS COVID-19 QUALITATIVE RT-PCR 2022-03-30 [facility] 01:33:00 LACTIC ACID LEVEL, SEPSIS - 2022-03-30 [facility] NOW AND REPEAT 2X EVERY 3 01:33:00 HOURS US DUPLEX VENOUS LOWER 2022-03-30 Marcel Rosales [facility] EXTREMITY RIGHT 00:22:55 XR FOOT 3+ VW RIGHT 2022-03-29 Marcel Rosales [facility] 23:44:01 BLOOD CULTURE, AEROBIC & 2022-03-29 Marcel Rosales [facility] ANAEROBIC 23:32:00 HC COMPLETE BLD COUNT 2022-03-29 Bobby Marcel [facility] W/AUTO DIFF 23:31:00 COMPREHENSIVE METABOLIC 2022-03-29 Marcel Rosales [facility] PANEL 23:31:00 LACTIC ACID LEVEL, SEPSIS - 2022-03-29 N[facility] NOW AND REPEAT 2X EVERY 3 23:31:00 HOURS PROTHROMBIN TIME WITH INR 2022-03-29 [facility] 23:31:00 PARTIAL THROMBOPLASTIN TIME 2022-03-29 [facility] (PTT) 23:31:00 C-REACTIVE PROTEIN 2022-03-29 [facility] 23:31:00 SEDIMENTATION RATE 2022-03-29 [facility] 23:31:00 ESTIMATED GFR 2022-03-29 [facility] 23:31:00 URINE CULTURE 2022-03-29 [facility] 22:56:00 HC COMPLETE BLD COUNT 2022-03-04 [facility] W/AUTO DIFF 09:43:00 BASIC METABOLIC PANEL 2022-03-04 Abebe [facility] 09:43:00 ESTIMATED GFR 2022-03-04 Mirta Lomas [facility] spital 09:43:00 XR ABDOMEN 1 VW 2022-03-03 [facility] 22:05:04 XR CHEST 1 VW PORTABLE 2022-03-03 Wanda Adhikari [facility] 20:07:53 CV LEFT HEART CATH LV GRAM 2022-03-03 [facility] WITH CORS 14:28:09 CV LEFT HEART CATH LV GRAM 2022-03-03 [facility] WITH CORS 14:28:09 COMPREHENSIVE METABOLIC 2022-03-03 [facility] PANEL 08:38:00 HC COMPLETE BLD COUNT 2022-03-03 Abebe Mirta [facility] W/AUTO DIFF 08:38:00 MAGNESIUM LEVEL 2022-03-03 Abebe, [facility] 08:38:00 PHOSPHORUS LEVEL 2022-03-03 Abebe, [facility] 08:38:00 PROTHROMBIN TIME WITH INR 2022-03-03 [facility] 08:38:00 PARTIAL THROMBOPLASTIN TIME 2022-03-03 [facility] 08:38:00 TYPE AND SCREEN 2022-03-03 [facility]Mirta [facility] 08:38:00 ESTIMATED GFR 2022-03-03 [facility]Mirta [facility] 08:38:00 HC COMPLETE BLD COUNT 2022-03-02 [facility] W/AUTO DIFF 10:34:00 Disni COMPREHENSIVE METABOLIC 2022-03-02 [facility] PANEL 10:34:00 Disni ESTIMATED GFR 2022-03-02 [facility] ospital 10:34:00 Disni XR CHEST 1 VW PORTABLE 2022-03-01 [facility] 12:04:12 COMPREHENSIVE METABOLIC 2022-03-01 [facility] PANEL 10:19:00 Disni HC COMPLETE BLD COUNT 2022-03-01 [facility] W/AUTO DIFF 10:19:00 Disni ESTIMATED GFR 2022-03-01 [facility] ospital 10:19:00 Disni COMPREHENSIVE METABOLIC 2022-02-28 [facility] PANEL 09:11:00 Disni HC COMPLETE BLD COUNT 2022-02-28 [facility] W/AUTO DIFF 09:11:00 Disni MAGNESIUM LEVEL 2022-02-28 Jeremias Lomasthi [facility] sp[facility] 09:11:00 PHOSPHORUS LEVEL 2022-02-28 Abebe, [facility] 09:11:00 ESTIMATED GFR 2022-02-28 [facility] ospital 09:11:00 Disni URINALYSIS SCREEN AND 2022-02-27 [facility] MICROSCOPY, WITH REFLEX TO 17:58:00 CULTURE URINE CULTURE 2022-02-27 [facility] spital 17:57:00 COMPREHENSIVE METABOLIC 2022-02-27 [facility] PANEL 10:54:00 Disni HC COMPLETE BLD COUNT 2022-02-27 [facility] W/AUTO DIFF 10:54:00 Disni ESTIMATED GFR 2022-02-27 [facility] ospital 10:54:[address] HEAD WO CONTRAST 2022-02-26 [facility] 20:57:32 Disni ZZCOVID-19 ANTI-SPIKE IGG 2022-02-26 [facility] ANTIBODY TITER 09:11:00 ZZCOVID-19 SEROLOGY PATIENT 2022-02-26 Nito Hillman [facility] SURVEILLANCE 09:11:00 HC COMPLETE BLD COUNT 2022-02-26 [facility] W/AUTO DIFF 09:11:00 Marlen BASIC METABOLIC PANEL 2022-02-26 [facility] 09:11:00 Marlen ESTIMATED GFR 2022-02-26 [facility] 09:11[facility]00 [facility] TTE COMPLETE, WO CONTRAST, 2022-02-25 [facility] W DOPPLER ([id number]) 21:20:00 INFLUENZA ANTIGEN TEST, 2022-02-25 [facility] Benitez [facility] REFLEX NEGATIVE TO RPP 10:44:00 RESPIRATORY PATHOGEN PANEL 2022-02-25 [facility] WITH COVID-19 RT-PCR 10:44:00 PROTHROMBIN TIME WITH INR 2022-02-25 [facility] 10:44:00 LACTIC ACID LEVEL, SEPSIS - 2022-02-25 [facility] NOW AND REPEAT 2X EVERY 3 10:44:00 HOURS RESPIRATORY PATHOGEN PANEL 2022-02-25 [facility] WITH COVID-19 RT-PCR 10:44:00 ANTI XA, UNFRACTIONATED 2022-02-25 [facility] 09:19:00 TROPONIN T 2022-02-25 [facility] 09:19:00 LACTIC ACID LEVEL, SEPSIS - 2022-02-25 [facility] NOW AND REPEAT 2X EVERY 3 08:16:00 HOURS HC COMPLETE BLD COUNT 2022-02-25 [facility] W/AUTO DIFF 08:16:00 COMPREHENSIVE METABOLIC 2022-02-25 [facility] PANEL 08:16:00 PROCALCITONIN 2022-02-25 [facility] 08:16:00 ESTIMATED GFR 2022-02-25 [facility] 08:16:00 TROPONIN T 2022-02-25 [facility] 06:30:00 COVID-19 QUALITATIVE RT-PCR 2022-02-25 [facility] 06:05:00 BLOOD CULTURE, AEROBIC & 2022-02-25 [facility] ANAEROBIC 05:15:00 BLOOD CULTURE, AEROBIC & 2022-02-25 [facility] ANAEROBIC 05:14:00 HEPATIC FUNCTION PANEL 2022-02-25 [facility] 05:08:00 LACTIC ACID LEVEL, SEPSIS - 2022-02-25 [facility] NOW AND REPEAT 2X EVERY 3 05:08:00 HOURS US DUPLEX VENOUS LOWER 2022-02-25 [facility] EXTREMITY LEFT 05:00:00 CT ANGIOGRAM PE CHEST 2022-02-25 [facility] 04:55:51 ECG ED PRELIMINARY 2022-02-25 [facility] pital INTERPRETATION 04:05:33 XR CHEST 1 VW PORTABLE 2022-02-25 [facility] 03:45:01 HC COMPLETE BLD COUNT 2022-02-25 [facility] W/AUTO DIFF 03:26:00 COMPREHENSIVE METABOLIC 2022-02-25 [facility] PANEL 03:26:00 TROPONIN T 2022-02-25 [facility] 03:26:00 B NATRIURETIC PEPTIDE 2022-02-25 , [facility] 03:26:00 PARTIAL THROMBOPLASTIN TIME 2022-02-25 , [facility] (PTT) 03:26:00 PROTHROMBIN TIME WITH INR 2022-02-25 [facility] 03:26:00 ESTIMATED GFR [facility]22[facility]02-25 [facility] 12-LEAD 2022-02-25 [facility] 02:55:45 FL FLUORO NON-SPECIFIC UP 2021-08-[address] [facility] TO 1 HOUR 15:55:00 Medical Center RADIOFREQUENCY ABLATION, 2021-08-25 Maral Mason [facility] NERVE, TRIGEMINAL 14:25:00 Medical Center PROCEDURE W/ C-ARM 2021-08-25 Maral Mason [facility] 14:25:00 Medical Center XR CHEST 2 VIEWS 2021-08-20 Maral Mason [facility] s 09:43:00 [facility] SARS-COV2/RT-PCR ([facility] 2021-08-20 Maral Mason [facility] REF LABS) 09:04:00 Medical Center URINALYSIS W/ REFLEX URINE 2021-08-[address] [facility] CULTURE 08:59:00 Medical Center BASIC METABOLIC PANEL 2021-08-20 Maral Mason [facility] 08:59:00 [facility] Center CBC W/PLT COUNT & AUTO 2021-08-20 Maral Mason [facility] S t [facility] DIFFERENTIAL 08:59:00 [facility] Center PROTHROMBIN TIME/INR 2021-08-[address] [facility] 08:59:00 [facility] PT/APTT 2021-08-20 [facility], Maral [facility] 08:59:00 [facility] Center TYPE AND SCREEN, AUTOMATED 2021-08-[address] [facility] 08:59:00 [facility] CBC W/PLT COUNT & AUTO 2021-08-20 [facility] Maral [facility] DIFFERENTIAL 08:59:00 [facility] ECG 12-LEAD 2021-08-20 [facility], Maral [facility] 07:56:30 [facility] ECG 12-LEAD 2021-08-20 Unknown, [facility] Doctor [facility] 07:56:30 [facility] BASIC METABOLIC PANEL 2021-07-01 [facility] 11:23:00 [facility] CBC W/PLT COUNT & AUTO 2021-07-01 [facility], [facility] DIFFERENTIAL 11:23:00 [facility] CBC W/PLT COUNT & AUTO 2021-07-01 [facility] [facility] DIFFERENTIAL 11:23:00 [facility] XR KNEE 1 OR 2 VIEWS LEFT 2021-07-01 [facility] [facility] 11:12:00 [facility] XR CHEST 1 VIEW PORTABLE / 2021-06-16 [facility]con [facility] 10:47:[address] [facility] [address] BIOPSY LUNG 2021-06-16 Olga, Cristobal Garciaur [facility] 09:53:00 [facility] TISSUE EXAM 2021-06-16 Olga, Cristobal Smith [facility] 09:50:00 [facility] CBC W/PLT COUNT & AUTO 2021-06-[address] [facility] DIFFERENTIAL 05:39:00 [facility] BASIC METABOLIC PANEL 2021-06-16 Osvaldo Mateo Pardeep [facility] 05:39:00 [facility] Center CBC W/PLT COUNT & AUTO 2021-06-16 Osvaldo Mateo Pardeep [facility] DIFFERENTIAL 05:39:00 [facility] MR LOWER EXTREMITY JOINT 2021-06-[address] [facility] ONLY WITH & WITHOUT IV 17:44:00 Medical C enter CONTRAST RIGHT MR LOWER EXTREMITY JOINT 2021-06-[address] [facility] ONLY WITH & WITHOUT IV 17:40:00 Medical C enter CONTRAST CBC W/PLT COUNT & AUTO 2021-06-15 Osvaldo, Mateo Roberto [facility] DIFFERENTIAL 05:17:00 Medical Center BASIC METABOLIC PANEL 2021-06-15 Osvaldo, Mateo Roberto [facility] 05:17:00 Medical Center CBC W/PLT COUNT & AUTO 2021-06-15 Osvaldo, Mateo Roberto [facility] DIFFERENTIAL 05:17:00 [facility] Center URINALYSIS W/ MICROSCOPIC 2021-06-14 Torres, [facility] 05:18:00 [facility] Center URINE CULTURE 2021-06-14 Torres, [facility] 05:18:00 [facility] Center CT CHEST WITH & WITHOUT IV 2021-06-14 Brian Harika [facility] CONTRAST 04:35:00 [facility] Center PROTHROMBIN TIME/INR 2021-06-14 Osvaldo, Mateo [facility] 04:25:00 [facility] Center APTT 2021-06-14 Osvaldo, Mateo [facility] 04:25:00 [facility] Center BLOOD CULTURE 2021-06-14 Osvaldo, Mateo Roberto [facility] 04:24:00 [facility] LACTIC ACID, VENOUS 2021-06-[address] [facility] 03:31:00 [facility] Center XR CHEST 1 VIEW PORTABLE / 2021-06-14 Brian Harika [facility] 03:29:00 [facility] SARS-COV2/RT-PCR ([facility] 2021-06-14 Torres, [facility] REF LAB[facility]) 02:49:00 [facility] Center CBC W/PLT COUNT & AUTO 2021-06-14 Torres, Harika [facility] DIFFERENTIAL 02:48:00 [facility] Center BASIC METABOLIC PANEL 2021-06-14 Torres, Harika [facility] 02:48:00 [facility] Center MAGNESIUM 2021-06-14 Osvaldo, Mateo Danielmichelle [facility] 02:48:00 [facility] Center PHOSPHORUS 2021-06-[address] [facility] 02:48:00 [facility] Center CBC W/PLT COUNT & AUTO 2021-06-14 TorresHarika gan [facility] DIFFERENTIAL 02:48:00 [facility] Center MR LUMBAR SPINE WITH & 2021-06-10 CharuHill [facility] WITHOUT IV CONTRAST 13:00:00 Medical Cent er BASIC METABOLIC PANEL 2021-06-10 Gisel Ricaamanda Rivero [facility] 10:35:00 [facility] SARS-COV2/RT-PCR ([facility] 2021-06-08 Husu, Hill Narcis [facility] REF LABS) 14:23:00 [facility] Center Procedure 2019-06-06 [facility] 00:00:00 Chemodenervation of one 2017-11-09 [facility] [place] extremity; 1-4 muscle(s) 19:16:00 Chemodenervation of one 2017-11-09 [facility] [place] extremity; each additional 19:16:00 extremity, 1-4 muscle(s) (List separately in addition to code for primary procedure) Chemodenervation of one 2017-10-05 [facility] extremity; 5 or more 14:54:00 muscles Replacement of total knee 2017-08-25 [facility] 05:00:00 Chemodenervation of one 2017-05-11 [facility] extremity; each additional 17:17:00 extremity, 5 or more muscles (List separately in addition to code for primary procedure) Arthrocentesis, aspiration 2017-01-05 [facility] and/or injection, major 18:01:00 joint or bursa (eg, shoulder, hip, knee, subacromial bursa); with ultrasound guidance, with permanent recording and reporting Injection(s); single or 2016-10-14 [facility] [place] multiple trigger point(s), 22:49:00 3 or more muscles Injection(s); single or 2016-03-03 [facility] [place] multiple trigger point(s), 21:12:00 1 or 2 muscle(s) Bilateral oophorectomy 2007-06-06 [facility] 00:00:00 Radiation therapy procedure 2006-06-06 Brien concepcion [facility] or service 00:00:00 Breast lumpectomy 2006-06-06 [facility] nn 00:00:00 [facility] Bunionectomy [facility] Operation<sup>1</sup> [facility] Trigeminal nerve block [facility] Plan of Care Planned Activity Planned Date Details Comments Source Future Scheduled 2023-02-[address] [facility] Test 00:00:00 (Season Ended) [code = Medic al Center INFLUENZA VACCINE (Season Ended)] Future Scheduled 2023-02-[address] [facility] Test 00:00:00 (Season Ended) [code = Medic al Center Influenza Vaccine (Season Ended)] Future Scheduled 2023-02-04 Influenza Vaccine (#1) [facility] 00:00:00 [code = Influenza Medical Ce nter Vaccine (#1)] Future Scheduled 2023-01-17 65+ PNEUMOCOCCAL Methodi [facility] Test 13:49:17 VACCINE (1 - PCV) [code = 65+ PNEUMOCOCCAL VACCINE (1 - PCV)] Future Scheduled 2023-01-17 Hepatitis C screening [facility] Test 13:49:17 (procedure) [code = [id number]] Future Scheduled 2023-01-17 SHINGLES VACCINES (1 Met [facility] Test 13:49:17 of 2) [code = SHINGLES VACCINES (1 of 2)] Future Scheduled 2023-01-17 COVID-19 VACCINE (4 - [facility] Test 13:49:17 Pfizer series) [code = COVID-19 VACCINE (4 - Pfizer series)] Future Scheduled 2022-08-[address] [facility] Test 00:00:00 [facility] Medical Cente r Screening (12+) [code = Tobacco Cessation Counseling and Screening (12+)] Future Scheduled 2022-08-[address] [facility] Test 00:00:00 [facility] Medical Cente r Screening (12+) [code = Tobacco Cessation Counseling and Screening (12+)] Future Scheduled 2022-08-[address] [facility] Test 00:00:00 [facility] Medical Cente r Screening (12+) [code = Tobacco Cessation Counseling and Screening (12+)] Future Scheduled 2022-08-[address] [facility] Test 00:00:00 [facility] Medical Cente r Screening (12+) [code = Tobacco Cessation Counseling and Screening (12+)] Future Scheduled 2022-08-[address] [facility] Test 00:00:00 [facility] Medical Cente r Screening (12+) [code = Tobacco Cessation Counseling and Screening (12+)] Future Scheduled 2022-08-[address] [facility] Test 00:00:00 Counseling and Medical Cente r Screening (12+) [code = Tobacco Cessation Counseling and Screening (12+)] Future Scheduled 2022-08-[address] [facility] Test 00:00:00 Counseling and Medical Cente r Screening (12+) [code = Tobacco Cessation Counseling and Screening (12+)] Future Scheduled 2022-06-[address] [facility] Test 00:00:00 (12+) [code = Medical Center DEPRESSION SCREENING (12+)] Future Scheduled 2022-06-06 FALLS RISK SCREENING [facility] Test 00:00:00 [code = FALLS RISK Medical C enter SCREENING] Future Scheduled 2022-06-[address] [facility] Test 00:00:00 (12+) [code = Medical Center DEPRESSION SCREENING (12+)] Future Scheduled 2022-06-06 FALLS RISK SCREENING [facility] Test 00:00:00 [code = FALLS RISK Medical C enter SCREENING] Future Scheduled 2022-06-[address] [facility] Test 00:00:00 (12+) [code = Medical Center DEPRESSION SCREENING (12+)] Future Scheduled 2022-06-06 FALLS RISK SCREENING [facility] Test 00:00:00 [code = FALLS RISK Medical C enter SCREENING] Future Scheduled 2022-06-[address] [facility] Test 00:00:00 (12+) [code = Medical Center DEPRESSION SCREENING (12+)] Future Scheduled 2022-06-06 FALLS RISK SCREENING [facility] Test 00:00:00 [code = FALLS RISK Medical C enter SCREENING] Future Scheduled 2022-04-19 HEPATITIS B VACCINES [facility] Test 08:38:35 (1 of 3 - 3-dose series) [code = HEPATITIS B VACCINES (1 of 3 - 3-dose series)] Future Scheduled 2022-04-19 65+ [facility] 08:38[facility]35 VACCINE (1 - PCV) [code = 65+ PNEUMOCOCCAL VACCINE (1 - PCV)] Future Scheduled 2022-04-19 [facility] Test 08:38:35 (procedure) [code = [id number]] Future Scheduled 2022-04-19 SHINGLES VACCINES (1 [facility] Test 08:38:35 of 2) [code = SHINGLES VACCINES (1 of 2)] Future Scheduled 2022-04-19 COVID-19 VACCINE (4 - Me [facility] Test 08:38:35 Booster for Pfizer series) [code = COVID-19 VACCINE (4 - Booster for Pfizer series)] Future Scheduled 2022-04-19 HEPATITIS B VACCINES Met [facility] Test 08:38:35 (1 of 3 - 3-dose series) [code = HEPATITIS B VACCINES (1 of 3 - 3-dose series)] Future Scheduled 2022-04-19 65+ [facility] 08:38:35 VACCINE (1 - PCV) [code = 65+ PNEUMOCOCCAL VACCINE (1 - PCV)] Future Scheduled 2022-04-19 Hepatitis C screening [facility] Test 08:38:35 (procedure) [code = [id number]] Future Scheduled 2022-04-19 SHINGLES VACCINES (1 [facility] Test 08:38:35 of 2) [code = SHINGLES VACCINES (1 of 2)] Future Scheduled 2022-04-19 COVID-19 VACCINE (4 - [facility] Test 08:38:35 Booster for Pfizer series) [code = COVID-19 VACCINE (4 - Booster for Pfizer series)] Future Scheduled 2022-04-15 HEPATITIS B VACCINES Met [facility] Test 08:28:22 (1 of 3 - 3-dose series) [code = HEPATITIS B VACCINES (1 of 3 - 3-dose series)] Future Scheduled 2022-04-15 65+ PNEUMOCOCCAL Methodi [facility] Test 08:28:22 VACCINE (1 - PCV) [code = 65+ PNEUMOCOCCAL VACCINE (1 - PCV)] Future Scheduled 2022-04-15 Hepatitis C screening [facility] Test 08:28:22 (procedure) [code = [id number]] Future Scheduled 2022-04-15 SHINGLES VACCINES (1 [facility] Test 08:28:22 of 2) [code = SHINGLES VACCINES (1 of 2)] Future Scheduled 2022-04-15 COVID-19 VACCINE (4 - [facility] Test 08:28:22 Booster for Pfizer series) [code = COVID-19 VACCINE (4 - Booster for Pfizer series)] Future Scheduled 2022-04-02 HEPATITIS B VACCINES Met [facility] Test 09:00:51 (1 of 3 - 3-dose series) [code = HEPATITIS B VACCINES (1 of 3 - 3-dose series)] Future Scheduled 2022-04-02 65+ [facility] 09:00:51 VACCINE (1 - PCV) [code = 65+ PNEUMOCOCCAL VACCINE (1 - PCV)] Future Scheduled 2022-04-02 Hepatitis C screening [facility] Test 09:00:51 (procedure) [code = [id number]] Future Scheduled 2022-04-02 SHINGLES VACCINES (1 Met [facility] Test 09:00:51 of 2) [code = SHINGLES VACCINES (1 of 2)] Future Scheduled 2022-04-02 COVID-19 VACCINE (4 - [facility] Test 09:00:51 Booster for Pfizer series) [code = COVID-19 VACCINE (4 - Booster for Pfizer series)] Future Scheduled 2022-03-30 HEPATITIS B VACCINES [facility] Test 13:53:39 (1 of 3 - 3-dose series) [code = HEPATITIS B VACCINES (1 of 3 - 3-dose series)] Future Scheduled 2022-03-30 65+ [facility] 13:53:39 VACCINE (1 - PCV) [code = 65+ PNEUMOCOCCAL VACCINE (1 - PCV)] Future Scheduled 2022-03-30 Hepatitis C screening [facility] Test 13:53:39 (procedure) [code = [id number]] Future Scheduled 2022-03-30 SHINGLES VACCINES (1 Met [facility] Test 13:53:39 of 2) [code = SHINGLES VACCINES (1 of 2)] Future Scheduled 2022-03-30 COVID-19 VACCINE (4 - [facility] Test 13:53:39 Booster for Pfizer series) [code = COVID-19 VACCINE (4 - Booster for Pfizer series)] Future Scheduled 2022-03-23 HEPATITIS B VACCINES Met [facility] Test 10:27:51 (1 of 3 - 3-dose series) [code = HEPATITIS B VACCINES (1 of 3 - 3-dose series)] Future Scheduled 2022-03-23 65+ [facility] 10:27:51 VACCINE (1 - PCV) [code = 65+ PNEUMOCOCCAL VACCINE (1 - PCV)] Future Scheduled 2022-03-23 Hepatitis C screening [facility] Test 10:27:51 (procedure) [code = [id number]] Future Scheduled 2022-03-23 SHINGLES VACCINES (1 [facility] Test 10:27:51 of 2) [code = SHINGLES VACCINES (1 of 2)] Future Scheduled 2022-03-23 COVID-19 VACCINE (4 - Me [facility] Test 10:27:51 Booster for Pfizer series) [code = COVID-19 VACCINE (4 - Booster for Pfizer series)] Future Scheduled 2022-03-16 HEPATITIS B VACCINES [facility] Test 09:00:25 (1 of 3 - 3-dose series) [code = HEPATITIS B VACCINES (1 of 3 - 3-dose series)] Future Scheduled 2022-03-16 65+ PNEUMOCOCCAL [facility] Test 09:00:25 VACCINE (1 - PCV) [code = 65+ PNEUMOCOCCAL VACCINE (1 - PCV)] Future Scheduled 2022-03-16 Hepatitis C screening [facility] Test 09:00:25 (procedure) [code = [id number]] Future Scheduled 2022-03-16 SHINGLES VACCINES (1 [facility] Test 09:00:25 of 2) [code = SHINGLES VACCINES (1 of 2)] Future Scheduled 2022-03-16 COVID-19 VACCINE (4 - Me [facility] Test 09:00:25 Booster for Pfizer series) [code = COVID-19 VACCINE (4 - Booster for Pfizer series)] Future Scheduled 2022-03-16 HEPATITIS B VACCINES [facility] Test 09:00:25 (1 of 3 - 3-dose series) [code = HEPATITIS B VACCINES (1 of 3 - 3-dose series)] Future Scheduled 2022-03-16 65+ PNEUMOCOCCAL [facility] Test 09:00:25 VACCINE (1 - PCV) [code = 65+ PNEUMOCOCCAL VACCINE (1 - PCV)] Future Scheduled 2022-03-16 Hepatitis C screening [facility] Test 09:00:25 (procedure) [code = [id number]] Future Scheduled 2022-03-16 SHINGLES VACCINES (1 [facility] Test 09:00:25 of 2) [code = SHINGLES VACCINES (1 of 2)] Future Scheduled 2022-03-16 COVID-19 VACCINE (4 - [facility] Test 09:00:25 Booster for Pfizer series) [code = COVID-19 VACCINE (4 - Booster for Pfizer series)] Future Scheduled 2022-02-04 INFLUENZA VACCINE (#1) [facility] Test 00:00:00 [code = INFLUENZA Medical Ce nter VACCINE (#1)] Future Scheduled 2022-02-04 INFLUENZA VACCINE (#1) [facility] Test 00:00:00 [code = INFLUENZA Medical Ce nter VACCINE (#1)] Future Scheduled 2022-02-04 INFLUENZA VACCINE (#1) [facility] Test 00:00:00 [code = INFLUENZA Medical Ce nter VACCINE (#1)] Future Scheduled 2022-02-04 INFLUENZA VACCINE (#1) [facility] Test 00:00:00 [code = INFLUENZA Medical Ce nter VACCINE (#1)] Future Scheduled 2022-02-04 INFLUENZA VACCINE (#1) [facility] 00:00:00 [code = INFLUENZA Medical Ce nter VACCINE (#1)] Future Scheduled 2022-02-04 INFLUENZA VACCINE (#1) [facility] 00:00:00 [code = INFLUENZA Medical Ce nter VACCINE (#1)] Future Scheduled 2022-02-04 INFLUENZA VACCINE (#1) [facility] 00:00:00 [code = INFLUENZA Medical Ce nter VACCINE (#1)] Future Scheduled 2022-02-04 INFLUENZA VACCINE (#1) [facility] 00:00:00 [code = INFLUENZA Medical Ce nter VACCINE (#1)] Future Scheduled 2022-02-04 INFLUENZA VACCINE (#1) [facility] 00:00:00 [code = INFLUENZA Medical Ce nter VACCINE (#1)] Future Scheduled 2022-02-04 INFLUENZA VACCINE (#1) [facility] 00:00:00 [code = INFLUENZA Medical Ce nter VACCINE (#1)] Future Scheduled [address] [facility] Test 00:00:00 WELLNESS (YEAR 2 or Medical Center FIRST YEAR if no IPPE) [code = MEDICARE ANNUAL WELLNESS (YEAR 2 or FIRST YEAR if no IPPE)] Future Scheduled [address] [facility] Test 00:00:00 WELLNESS (YEAR 2 or Medical Center FIRST YEAR if no IPPE) [code = MEDICARE ANNUAL WELLNESS (YEAR 2 or FIRST YEAR if no IPPE)] Future Scheduled [address] [facility] Test 00:00:00 WELLNESS (YEAR 2 or Medical Center FIRST YEAR if no IPPE) [code = MEDICARE ANNUAL WELLNESS (YEAR 2 or FIRST YEAR if no IPPE)] Future Scheduled [address] [facility] Test 00:00:00 WELLNESS (YEAR 2 or Medical Center FIRST YEAR if no IPPE) [code = MEDICARE ANNUAL WELLNESS (YEAR 2 or FIRST YEAR if no IPPE)] Future Scheduled [address] [facility] Test 00:00:00 WELLNESS (YEAR 2 or Medical Center FIRST YEAR if no IPPE) [code = MEDICARE ANNUAL WELLNESS (YEAR 2 or FIRST YEAR if no IPPE)] Future Scheduled [address] [facility] 00:00:00 WELLNESS (YEAR 2 or Medical Center FIRST YEAR if no IPPE) [code = MEDICARE ANNUAL WELLNESS (YEAR 2 or FIRST YEAR if no IPPE)] Future Scheduled [address] [facility] 00:00:00 WELLNESS (YEAR 2 or Medical Center FIRST YEAR if no IPPE) [code = MEDICARE ANNUAL WELLNESS (YEAR 2 or FIRST YEAR if no IPPE)] Future Scheduled [address] [facility] 00:00:00 WELLNESS (YEAR 2 or Medical Center FIRST YEAR if no IPPE) [code = MEDICARE ANNUAL WELLNESS (YEAR 2 or FIRST YEAR if no IPPE)] Future Scheduled [address] [facility] 00:00:00 WELLNESS (YEAR 2 or Medical Center FIRST YEAR if no IPPE) [code = MEDICARE ANNUAL WELLNESS (YEAR 2 or FIRST YEAR if no IPPE)] Future Scheduled [address] [facility] 00:00:00 WELLNESS (YEAR 2 or Medical Center FIRST YEAR if no IPPE) [code = MEDICARE ANNUAL WELLNESS (YEAR 2 or FIRST YEAR if no IPPE)] Future Scheduled [address] [facility] 00:00:00 WELLNESS (YEAR 2 or Medical Center FIRST YEAR if no IPPE) [code = MEDICARE ANNUAL WELLNESS (YEAR 2 or FIRST YEAR if no IPPE)] Future Scheduled [address] [facility] Test 00:00:00 WELLNESS (YEAR 2 or Medical Center FIRST YEAR if no IPPE) [code = MEDICARE ANNUAL WELLNESS (YEAR 2 or FIRST YEAR if no IPPE)] Future Scheduled [address] [facility] Test 00:00:00 WELLNESS (YEAR 2 or Medical Center FIRST YEAR if no IPPE) [code = MEDICARE ANNUAL WELLNESS (YEAR 2 or FIRST YEAR if no IPPE)] Future Scheduled 2021-07-18 COVID-19 VACCINE (4 - [facility] 00:00:00 Booster for Pfizer Medical C enter series) [code = COVID-19 VACCINE (4 - Booster for Pfizer series)] Future Scheduled 2021-07-18 COVID-19 VACCINE (4 - [facility] 00:00:00 Booster for Pfizer Medical C enter series) [code = COVID-19 VACCINE (4 - Booster for Pfizer series)] Future Scheduled 2021-07-18 COVID-19 VACCINE (4 - [facility] 00:00:00 Booster for Pfizer Medical C enter series) [code = COVID-19 VACCINE (4 - Booster for Pfizer series)] Future Scheduled 2021-07-18 COVID-19 VACCINE (4 - [facility] 00:00:00 Booster for Pfizer Medical C enter series) [code = COVID-19 VACCINE (4 - Booster for Pfizer series)] Future Scheduled 2021-07-18 COVID-19 VACCINE (4 - [facility] 00:00:00 Booster for Pfizer Medical C enter series) [code = COVID-19 VACCINE (4 - Booster for Pfizer series)] Future Scheduled 2021-07-18 COVID-19 VACCINE (4 - [facility] 00:00:00 Booster for Pfizer Medical C enter series) [code = COVID-19 VACCINE (4 - Booster for Pfizer series)] Future Scheduled 2021-07-18 COVID-19 VACCINE (4 - [facility] 00:00:00 Booster for Pfizer Medical C enter series) [code = COVID-19 VACCINE (4 - Booster for Pfizer series)] Future Scheduled 2021-07-18 COVID-19 VACCINE (4 - [facility] 00:00:00 Booster for Pfizer Medical C enter series) [code = COVID-19 VACCINE (4 - Booster for Pfizer series)] Future Scheduled 2021-07-18 COVID-19 VACCINE (4 - [facility] 00:00:00 Booster for Pfizer Medical C enter series) [code = COVID-19 VACCINE (4 - Booster for Pfizer series)] Future Scheduled 2021-07-18 COVID-19 VACCINE (4 - [facility] 00:00:00 Booster for Pfizer Medical C enter series) [code = COVID-19 VACCINE (4 - Booster for Pfizer series)] Future Scheduled 2021-06-[address] [facility] Test 00:00:00 (12+) [code = Medical Center DEPRESSION SCREENING (12+)] Future Scheduled 2021-06-06 FALLS RISK SCREENING [facility] Test 00:00:00 [code = FALLS RISK Medical C enter SCREENING] Future Scheduled 2021-06-[address] [facility] Test 00:00:00 (12+) [code = Medical Center DEPRESSION SCREENING (12+)] Future Scheduled 2021-06-06 FALLS RISK SCREENING [facility] Test 00:00:00 [code = FALLS RISK Medical C enter SCREENING] Future Scheduled 2021-06-[address] [facility] Test 00:00:00 (12+) [code = Medical Center DEPRESSION SCREENING (12+)] Future Scheduled 2021-06-06 FALLS RISK SCREENING [facility] Test 00:00:00 [code = FALLS RISK Medical C enter SCREENING] Future Scheduled 2021-06-[address] [facility] Test 00:00:00 (12+) [code = Medical Center DEPRESSION SCREENING (12+)] Future Scheduled 2021-06-06 FALLS RISK SCREENING [facility] Test 00:00:00 [code = FALLS RISK Medical C enter SCREENING] Future Scheduled 2021-06-[address] [facility] Test 00:00:00 (12+) [code = Medical Center DEPRESSION SCREENING (12+)] Future Scheduled 2021-06-06 FALLS RISK SCREENING [facility] Test 00:00:00 [code = FALLS RISK Medical C enter SCREENING] Future Scheduled 2021-06-[address] [facility] Test 00:00:00 (12+) [code = Medical Center DEPRESSION SCREENING (12+)] Future Scheduled 2021-06-06 F[address]K SCREENING [facility] Test 00:00:00 [code = FALLS RISK Medical C enter SCREENING] Future Scheduled 2021-06-[address] [facility] Test 00:00:00 (12+) [code = Medical Center DEPRESSION SCREENING (12+)] Future Scheduled 2021-06-[address] [facility] Test 00:00:00 [code = FALLS RISK Medical C enter SCREENING] Future Scheduled 2021-06-[address] [facility] Test 00:00:00 (12+) [code = Medical Center DEPRESSION SCREENING (12+)] Future Scheduled 2021-06-06 F[place] RIS[place] [facility]CRE[facility] Test 00:00:00 [code = FALLS RISK Medical C enter SCREENING] Future Scheduled 2021-06-[address] [facility] Test 00:00:00 (12+) [code = Medical Center DEPRESSION SCREENING (12+)] Future Scheduled 2021-06-06 F[place] [address]CRE[facility] Test 00:00:00 [code = FALLS RISK Medical C enter SCREENING] Future Scheduled 2021-05-12 COVID-19 VACCINE (4 [facility] Test 00:00:00 Booster for Pfizer Medical C enter series) [code = COVID-19 VACCINE (4 - Booster for Pfizer series)] Future Scheduled 2021-05-12 COVID-19 VACCINE (4 - [facility] Test 00:00:00 Booster for Pfizer Medical C enter series) [code = COVID-19 VACCINE (4 - Booster for Pfizer series)] Future Scheduled 2021-05-12 COVID-19 VACCINE (4 - [facility] Test 00:00:00 Booster for Pfizer Medical C enter series) [code = COVID-19 VACCINE (4 - Booster for Pfizer series)] Future Scheduled 1994 SHINGLES VACCINES ([address] [facility] Test 00:00:00 of 2) [code = SHINGLES Medic al Center VACCINES (1 of 2)] Future Scheduled 1994 SHINGLES VACCINES ([address] [facility] Test 00:00:00 of 2) [code = SHINGLES Medic al Center VACCINES (1 of 2)] Future Scheduled 1994 SHINGLES VACCINES ([address] [facility] Test 00:00:00 of 2) [code = SHINGLES Medic al Center VACCINES (1 of 2)] Future Scheduled 1994 SHINGLES VACCINES ([address] [facility] Test 00:00:00 of 2) [code = SHINGLES Medic al Center VACCINES (1 of 2)] Future Scheduled 1994 SHINGLES VACCINES ([address] [facility] Test 00:00:00 of 2) [code = SHINGLES Medic al Center VACCINES (1 of 2)] Future Scheduled 1994 SHINGLES VACCINES ([address] [facility] Test 00:00:00 of 2) [code = SHINGLES Medic al Center VACCINES (1 of 2)] Future Scheduled 1994 SHINGLES VACCINES ([address] [facility] Test 00:00:00 of 2) [code = SHINGLES Medic al Center VACCINES (1 of 2)] Future Scheduled 1994 SHINGLES VACCINES ([address] [facility] Test 00:00:00 of 2) [code = SHINGLES Medic al Center VACCINES (1 of 2)] Future Scheduled 1994 SHINGLES VACCINES ([address] [facility] Test 00:00:00 of 2) [code = SHINGLES Medic al Center VACCINES (1 of 2)] Future Scheduled 1994 SHINGLES VACCINES ([address] [facility] Test 00:00:00 of 2) [code = SHINGLES Medic al Center VACCINES (1 of 2)] Future Scheduled 1994 SHINGLES VACCINES ([address] [facility] Test 00:00:00 of 2) [code = SHINGLES Medic al Center VACCINES (1 of 2)] Future Scheduled 1994 SHINGLES VACCINES ([address] [facility] Test 00:00:00 of 2) [code = SHINGLES Medic al Center VACCINES (1 of 2)] Future Scheduled 1994 SHINGLES VACCINES ([address] [facility] Test 00:00:00 of 2) [code = SHINGLES Medic al Center VACCINES (1 of 2)] Future Scheduled 1963-09-06 DTAP/TDAP/TD VACCINES [facility] Test 00:00:00 (1 - Tdap) [code = Medical C enter DTAP/TDAP/TD VACCINES (1 - Tdap)] Future Scheduled 1963-09-06 DTAP/TDAP/TD VACCINES [facility] Test 00:00:00 (1 - Tdap) [code = Medical C enter DTAP/TDAP/TD VACCINES (1 - Tdap)] Future Scheduled 1963-09-06 DTAP/TDAP/TD VACCINES [facility] Test 00:00:00 (1 - Tdap) [code = Medical C enter DTAP/TDAP/TD VACCINES (1 - Tdap)] Future Scheduled 1963-09-06 DTAP/TDAP/TD VACCINES [facility] Test 00:00:00 (1 - Tdap) [code = Medical C enter DTAP/TDAP/TD VACCINES (1 - Tdap)] Future Scheduled 1963-09-06 DTAP/TDAP/TD VACCINES [facility] Test 00:00:00 (1 - Tdap) [code = Medical C enter DTAP/TDAP/TD VACCINES (1 - Tdap)] Future Scheduled 1963-09-06 DTAP/TDAP/TD VACCINES [facility] Test 00:00:00 (1 - Tdap) [code = Medical C enter DTAP/TDAP/TD VACCINES (1 - Tdap)] Future Scheduled 1963-09-06 DTAP/TDAP/TD VACCINES [facility] Test 00:00:00 (1 - Tdap) [code = Medical C enter DTAP/TDAP/TD VACCINES (1 - Tdap)] Future Scheduled 1963-09-06 DTAP/TDAP/TD VACCINES [facility] Test 00:00:00 (1 - Tdap) [code = Medical C enter DTAP/TDAP/TD VACCINES (1 - Tdap)] Future Scheduled 1963-09-06 DTAP/TDAP/TD VACCINES [facility] Test 00:00:00 (1 - Tdap) [code = Medical C enter DTAP/TDAP/TD VACCINES (1 - Tdap)] Future Scheduled 1963-09-06 DTAP/TDAP/TD VACCINES [facility] Test 00:00:00 (1 - Tdap) [code = Medical C enter DTAP/TDAP/TD VACCINES (1 - Tdap)] Future Scheduled 1963-09-06 DTAP/TDAP/TD VACCINES [facility] Test 00:00:00 (1 - Tdap) [code = Medical C enter DTAP/TDAP/TD VACCINES (1 - Tdap)] Future Scheduled 1963-09-06 DTAP/TDAP/TD VACCINES [facility] Test 00:00:00 (1 - Tdap) [code = Medical C enter DTAP/TDAP/TD VACCINES (1 - Tdap)] Future Scheduled 1963-09-06 DTAP/TDAP/TD VACCINES [facility] Test 00:00:00 (1 - Tdap) [code = Medical C enter DTAP/TDAP/TD VACCINES (1 - Tdap)] Future Scheduled 1962 HEPATITIS C SCREENING [facility] Test 00:00:00 [code = HEPATITIS C Medical Center SCREENING] Future Scheduled 1962 HEPATITIS C SCRE[facility]ING [facility] Test 00:00:00 [code = HEPATITIS C Medical Center SCREENING] Future Scheduled 1962 HEPATITIS C [facility]CRE[facility]ING [facility] Test 00:00:00 [code = HEPATITIS C Medical Center SCREENING] Future Scheduled 1962 HEPATITIS C [facility]CRE[facility]ING [facility] Test 00:00:00 [code = HEPATITIS C Medical Center SCREENING] Future Scheduled 1962 HEPATITIS C [facility]CRE[facility]ING [facility] Test 00:00:00 [code = HEPATITIS C Medical Center SCREENING] Future Scheduled 1962 HEPATITIS C [facility] Test 00:00:00 [code = HEPATITIS C Medical Center SCREENING] Future Scheduled 1962 HEPATITIS C [facility]ING [facility] Test 00:00:00 [code = HEPATITIS C Medical Center SCREENING] Future Scheduled 1962 HEPATITIS C [facility] Test 00:00:00 [code = HEPATITIS C Medical Center SCREENING] Future Scheduled 1962 HEPATITIS C [facility] Test 00:00:00 [code = HEPATITIS C Medical Center SCREENING] Future Scheduled 1962 HEPATITIS C [facility] 00:00:00 [code = HEPATITIS C Medical Center SCREENING] Future Scheduled 1962 HEPATITIS C [facility] 00:00:00 [code = HEPATITIS C Medical Center SCREENING] Future Scheduled 1962 HEPATITIS C [facility] 00:00:00 [code = HEPATITIS C Medical Center SCREENING] Future Scheduled 1962 HEPATITIS C [facility] 00:00:00 [code = HEPATITIS C Medical Center SCREENING] Future Scheduled 1950 PNEUMOCOCCAL 65+ YRS [facility] Test 00:00:00 (1 - PCV) [code = Medical Ce nter PNEUMOCOCCAL 65+ YRS (1 - PCV)] Future Scheduled 1950 PNEUMOCOCCAL 65+ YRS [facility] Test 00:00:00 (1 - PCV) [code = Medical Ce nter PNEUMOCOCCAL 65+ YRS (1 - PCV)] Future Scheduled 1950 PNEUMOCOCCAL 65+ YRS [facility] Test 00:00:00 (1 - PCV) [code = Medical Ce nter PNEUMOCOCCAL 65+ YRS (1 - PCV)] Future Scheduled 1950 PNEUMOCOCCAL 65+ YRS [facility] Test 00:00:00 (1 - PCV) [code = Medical Ce nter PNEUMOCOCCAL 65+ YRS (1 - PCV)] Future Scheduled 1950 PNEUMOCOCCAL 65+ YRS [facility] Test 00:00:00 (1 - PCV) [code = Medical Ce nter PNEUMOCOCCAL 65+ YRS (1 - PCV)] Future Scheduled 1950 PNEUMOCOCCAL 65+ YRS [facility] Test 00:00:00 (1 - PCV) [code = Medical Ce nter PNEUMOCOCCAL 65+ YRS (1 - PCV)] Future Scheduled 1950 PNEUMOCOCCAL 65+ YRS [facility] Test 00:00:00 (1 - PCV) [code = Medical Ce nter PNEUMOCOCCAL 65+ YRS (1 - PCV)] Future Scheduled 1950 PNEUMOCOCCAL 65+ YRS [facility] Test 00:00:00 (1 - PCV) [code = Medical Ce nter PNEUMOCOCCAL 65+ YRS (1 - PCV)] Future Scheduled 1950 PNEUMOCOCCAL 65+ YRS [facility] Test 00:00:00 (1 - PCV) [code = Medical Ce nter PNEUMOCOCCAL 65+ YRS (1 - PCV)] Future Scheduled 1950 PNEUMOCOCCAL 65+ YRS [facility] Test 00:00:00 (1 - PCV) [code = Medical Ce nter PNEUMOCOCCAL 65+ YRS (1 - PCV)] Future Scheduled 1950 PNEUMOCOCCAL 65+ YRS [facility] Test 00:00:00 (1 - PCV) [code = Medical Ce nter PNEUMOCOCCAL 65+ YRS (1 - PCV)] Future Scheduled 1950 PNEUMOCOCCAL 65+ YRS [facility] Test 00:00:00 (1 - PCV) [code = Medical Ce nter PNEUMOCOCCAL 65+ YRS (1 - PCV)] Future Scheduled 1950 PNEUMOCOCCAL 65+ YRS [facility] Test 00:00:00 (1 - PCV) [code = Medical Ce nter PNEUMOCOCCAL 65+ YRS (1 - PCV)] Future Scheduled 1944 DXA SCAN [code = DXA [facility] Test 00:00:00 SCAN] [facility] Future Scheduled 1944 DXA SCAN [code = DXA [facility] Test 00:00:00 SCAN] [facility] Future Scheduled 1944 DXA SCAN [code = DXA [facility] Test 00:00:00 SCAN] [facility] Future Scheduled 1944 DXA SCAN [code = DXA [facility] Test 00:00:00 SCAN] [facility] Future Scheduled 1944 DXA SCAN [code = DXA [facility] Test 00:00:00 SCAN] [facility] Future Scheduled 1944 DXA SCAN [code = DXA [facility] Test 00:00:00 SCAN] [facility] Future Scheduled 1944 DXA SCAN [code = DXA [facility] Test 00:00:00 SCAN] [facility] Future Scheduled 1944 DXA SCAN [code = DXA [facility] Test 00:00:00 SCAN] [facility] Center Future Scheduled 1944 DXA SCAN [code = DXA [facility] Test 00:00:00 SCAN] [facility] Future Scheduled 1944 DXA SCAN [code = DXA [facility] Test 00:00:00 SCAN] [facility] Center Future Scheduled 1944 DXA SCAN [code = DXA [facility] Test 00:00:00 SCAN] [facility] Future Scheduled 1944 DXA SCAN [code = DXA [facility] Test 00:00:00 SCAN] [facility] Future Scheduled 1944 DXA SCAN [code = DXA [facility] Test 00:00:00 SCAN] [facility] Center Encounters Start End Encounter Admission Attending Care Care Encounter Source Date/Time Date/Time Type Type Clinicians Facility Department ID 2022-12-22 Outpatient 3 [id number] EN[facility] CVA [id number] [facility] 11:59:29 [id number] [place] 2022-12-17 Outpatient 3 [id number] ENCS[facility] REF [id number] [facility] 12:19:44 [id number] [facility] [place] 2022-12-15 Outpatient 3 [id number] ENCSL REF [id number] [facility] 13:51:04 [id number] [facility] [place] 2022-12-03 Outpatient SYSTEM, MAXIME SWARTZ [id number] 07:27:29 PROVIDER Manuel ng 2022-09-06 TO MHIE MHIE [id number] Hi moria 21:48:11 19 l [place] 2022-09-06 Outpatient MHIE MHIE [id number] Memoria 21:48:11 03 l [place] 2022-09-06 Outpatient MHIE MHIE [id number] Memoria 21:48:11 12 l [place] 2022-09-06 Outpatient MHIE MHIE [id number] Memoria 21:48:11 10 l [place] 2022-09-06 Outpatient MHIE MHIE [id number] Memoria 21:48:11 21 l [place] 2022-09-06 Outpatient MHIE MHIE [id number] Memoria 21:48:11 18 l [place] 2022-09-06 Outpatient SARAH, MHFB MHFB 7570 MH FB 09:57:12 TWYLA 2022-07-26 Outpatient [facility], MAXIME SWARTZ [id number] 10:09:24 PROVIDER Manuel ng 2022-06-17 Outpatient MAXIME RENDON Amy/Hep/Nu [id number] 10:25:14 CLARKE ng 2022-02-10 Outpatient MAXIEM RENDON Amy/Hep/Nu [id number] 11:25:49 CLARKE ng 2021-07-22 Outpatient [facility] MAXIME SWARTZ [id number] 13:21:03 EDDIE ng 2021-06-29 Outpatient [facility] Surgery [id number] SLE 11:06:26 HILL 2018-11-24 Inpatient JUNE GALO [facility] [place] [id number] [facility] 08:48:00 Medical Center 2022-12-23 2023-01-15 Inpatient 3 MARCEL DAMIAN ENCSL CVA [id number] [facility] 17:39:00 13:10:00 39723 [facility] [place] 2022-12-07 2022-12-23 Inpatient ER MAXIME WARD [facility] [id number] 21:07:00 17:20:00 [facility] H\\T\\N Manuel o n 2022-12-20 2022-12-20 Telemedici June Villalba 1.2.840.1 [id number] Methodi 11:45:00 12:00:00 ne Tamiko-Ju 13935.1.[address] 3.430.2.7 Hospit a .3.569756 l .8 2022-12-20 2022-12-20 Outpatient JUNE VILLALBA [facility] [id number] [place] 00:00:00 00:00:[address] 2022-12-15 2022-12-15 Inpatient EL ANAND-REBECCA MDA MDA [id number] 16:17:56 16:37:40 NBERKLEY rso n 2022-12-15 2022-12-15 Inpatient EL ANAND-REBECCA MDA MDA [id number] 14:17:36 14:32:28 BERKLEY Ng rso n 2022-12-14 2022-12-14 Inpatient EL MDA MDA [id number] 13:08:31 16:32:09 Manuel o berenice 2022-12-13 2022-12-13 Inpatient EL LE, XIUNING MDA MDA [id number] 09:48:07 09:49:59 Manuel o berenice 2022-12-10 2022-12-10 Inpatient EL LE, XIUNING MDA MDA [id number] 14:57:53 14:58:01 Manuel o berenice 2022-12-09 2022-12-09 Inpatient EL LE, XIUNING MDA MDA [id number] 12:18:11 12:18:14 Manuel o berenice 2022-11-25 2022-11-25 Outpatient ALICE GARNER, MDA MDA [id number] 14:11:26 14:11:26 LETTY cartagena n 2022-11-18 2022-11-24 Outpatient KATTY SANTOS MDA MDA [id number] 12:09:04 08:24:27 Manuel o n 2022-11-16 2022-11-16 Outpatient ALICE MAHONEY, MDA MDA [id number] 14:07:13 14:07:13 ABDIAS Manuel o n 2022-11-04 2022-11-12 Inpatient TERESA IQBAL, MDA [facility] [id number] MD 14:17:00 16:03:00 MAZIN H\\T\\N Manuel o n 2022-11-10 2022-11-10 Inpatient ALICE GARCIAS, MDA MDA [id number] MD 10:33:07 15:27:59 BARRERA montoyao n 2022-11-08 2022-11-08 Outpatient ALICE SCHROEDER, MDA MDA [id number] 10:43:35 10:43:35 NNADO Manuel o n 2022-11-08 2022-11-08 Outpatient ALICE SCHROEDER, MDA MDA [id number] 10:33:42 10:33:42 NANDO Manuel o n 2022-11-05 2022-11-05 Inpatient LYNNETTE, MDA MDA [id number] 13:10:41 13:10:46 Manuel o n 2022-10-25 2022-10-25 Outpatient LEEANNE BLAND MDA MDA [id number] 09:15:24 10:02:18 Manuel o n 2022-10-19 2022-10-25 Office Timmons, 1.2.840.1 [id number] Methodi 17:30:00 00:29:13 Visit Lorena Mcmanus 49051.1.1 383 s t 3.430.2.7 Hospit a .3.440102 l .8 2022-10-19 2022-10-19 Outpatient [facility] [id number] [place] 00:00:00 00:00:[address] 2022-10-19 2022-10-19 Travel 1.2.840.1 1.2.720.968 [id number] Methodi 00:00:00 00:00:[address] 3.430.2.7 0.2.7.3.698 Ho spita .3.492836 084.8 l .8 2022-09-27 2022-09-27 Oncology [place], 1.2.840.1 [id number] 2100 [id number] Methodi 00:00:00 00:00:00 [facility] Silvia 78128.1.1 606 s t ip 3.430.2.7 Hospit a .3.821000 l .8 2022-09-24 2022-09-24 Refill Garcia, 1.2.840.1 [id number] 7107 Methodi 00:00:00 00:00:[address] 3.430.2.7 Hospit a .3.598771 l .8 2022-09-17 2022-09-17 Outpatient ALICE PATSYMAXIME MDA [id number] 12:30:00 23:59:00 LETTY ng 2022-09-17 2022-09-17 Outpatient ALICE KATTY OLIVEIRA MDA MDA [id number] 08:01:13 11:36:26 Manuel ng 2022-09-17 2022-09-17 Outpatient ALICE GARNER, MDA MDA [id number] 09:56:40 09:56:40 LETTY ng 2022-09-06 2022-09-09 [facility] Matt 1.2.840.1 [id number] Methodi 17:56:00 13:25:00 Encounter Benitez Horvath 46294.1.[address] [facility] Shailesh 3.430.2.7 Ho karly Diehlh, Lester .3.452168 l .8 2022-09-06 2022-09-09 Inpatient GARCIA [facility] [id number] [place] 00:00:00 00:00:00 [address]STER [address] 2022-09-08 2022-09-08 Outpatient JUNE VILLALBA [facility] [id number] [place] 00:00:00 00:00:[address] 2022-09-06 2022-09-06 Travel 1.2.840.1 1.2.207.424 4428 [id number] Methodi 00:00:00 00:00:[address] 3.430.2.7 0.2.7.3.698 Ho spita .3.807806 084.8 l .8 2022-08-27 2022-08-27 Emergency Esmer, 1.2.840.1 [id number] Methodi 12:33:00 18:29:[address] Sangeeth 3.430.2.7 Hospi Kristiwin .3.769937 l .8 2022-08-27 2022-08-27 [facility] 064 [id number] 7502 [place] 00:00:00 00:00:[address] 2022-08-27 2022-08-27 Travel 1.2.840.1 1.2.703.826 6040 [id number] Methodi 00:00:00 00:00:[address] 3.430.2.7 0.2.7.3.698 Ho spita .3.750395 084.8 l .8 2022-08-27 2022-08-27 Telephone Fausto, 1.2.840.1 [id number] 2099 [id number] Methodi 00:00:00 00:00:[address] 3.430.2.7 Hospit a .3.303239 l .8 2022-08-16 2022-08-16 Outpatient KATTY SANTOS [facility] [id number] 09:26:37 14:04:08 Manuel ng 2022-08-10 2022-08-10 Telemedici June Villalba 1.2.840.1 [id number] Methodi 10:45:00 10:45:00 [facility] [place] [address]322.1.[address] 3.430.2.7 Hospit a .3.988151 l .8 2022-08-10 2022-08-10 Outpatient JUNE VILLALBA [facility] 2100 [id number] [place] 00:00:00 00:00:[address] 2022-08-07 2022-08-07 Outpatient ALICE GARNER, MDA MDA [id number] 08:31:44 23:59:00 LETTY Munoz so berenice 2022-08-07 2022-08-07 Outpatient ALICE GARNER, MDA MDA [id number] 12:00:26 12:00:26 LETTY ng 2022-08-07 2022-08-07 Outpatient ALICE GARNER, MDA MDA [id number] 08:00:00 08:30:00 LETTY ng 2022-08-06 2022-08-06 Telemedici Timmons, 1.2.840.1 [id number] Methodi 09:45:00 10:15:32 ne Lorena Mcmanus 53322.1.1 864 s t 3.430.2.7 Hospit a .3.454692 l .8 2022-08-06 2022-08-06 Outpatient [facility] [id number] [place] 00:00:00 00:00:[address] 2022-08-03 2022-08-03 Outpatient LEEANNE BLAND MDA MDA [id number] 11:45:32 11:45:32 Manuel o berenice 2022-08-03 2022-08-03 Outpatient ALICE MAHONEY, MDA MDA [id number] 11:33:13 11:33:13 ABDIAS Jackson o berenice 2022-07-06 2022-07-06 Outpatient LEEANNE BLAND MDA MDA [id number] 11:22:59 12:33:10 Manuel o berenice 2022-07-01 2022-07-01 Outpatient ALICE GARNER, MDA MDA [id number] 07:45:00 23:59:00 LETTY ng 2022-07-01 2022-07-01 Outpatient KATTY SANTOS MDA MDA [id number] 09:47:12 11:13:51 Manuel o berenice 2022-06-16 2022-06-16 Outpatient ALICE MAHONEY, MDA MDA [id number] 09:16:44 09:16:44 ABDIAS ng 2022-05-26 2022-05-26 Outpatient ALICE GARNER, MDA MDA [id number] 07:00:00 23:59:00 LETTY ng 2022-05-13 2022-05-13 Telemedici June Villalba 1.2.840.1 [id number] Methodi 10:30:00 12:07:12 ne Tamiko-Ju 19186.1.[address] 3.430.2.7 Hospit a .3.271064 l .8 2022-05-13 2022-05-13 Outpatient JUNE VILLALBA [facility] 2100 [id number] [place] 00:00:00 00:00:[address] 2022-05-10 2022-05-10 Outpatient ALICE GARNER, MDA MDA [id number] 12:15:00 23:59:00 LETTY ng 2022-05-10 2022-05-10 Outpatient KATTY SANTOS MDA MDA [id number] 14:00:42 15:08:04 Manuel ng 2022-05-03 2022-05-03 Outpatient ALICE GARNER, MDA MDA [id number] 13:20:00 23:59:00 LETTY ng 2022-05-03 2022-05-03 Outpatient ALICE GARNER, MDA MDA [id number] 13:00:00 13:19:00 LETTY ng 2022-04-14 2022-04-14 Refill June Villalba 1.2.840.1 [id number] [id number] Methodi 00:00:00 00:00:00 Tamiko-Ju 65855.1.[address] 3.430.2.7 Hospit a .3.929803 l .8 2022-04-14 2022-04-14 Refill June Villalba 1.2.840.1 [id number] Methodi 00:00:00 00:00:00 Tamiko-Ju 93243.1.[address] 3.430.2.7 Hospit a .3.237036 l .8 2022-04-08 2022-04-08 Outpatient ALICE GARNER MDA MDA [id number] 12:16:12 23:59:00 LETTY cartagena n 2022-04-08 2022-04-08 Outpatient ALICE GARNER MDA MDA [id number] 12:10:49 12:15:00 LETTY cartagena n 2022-03-29 2022-04-01 Emergency Bobby Marcel Andria 1.2.840.1 [id number] Methodi 16:50:00 17:05:00 Sari Dexter 89614.1.[address] Tan, Negin Rosetta 3.430.2.7 [facility] .3.483924 l Arturo Ladd .8 2022-03-29 2022-04-01 Emergency JULEE, 1.2.840.1 [id number] [id number] [place] 00:00:00 00:00:00 ARTURO 34575.1.[address] .3.308752 .8 2022-03-29 2022-03-29 Travel 1.2.840.1 1.2.380.482 2446 [id number] Methodi 00:00:00 00:00:[address] 3.430.2.7 0.2.7.3.698 Ho spita .3.605510 084.8 l .8 2022-03-29 2022-03-29 Travel 1.2.840.1 1.2.375.998 7570 [id number] Methodi 00:00:00 00:00:[address] 3.430.2.7 0.2.7.3.698 Ho spita .3.865084 084.8 l .8 2022-03-11 2022-03-11 Outpatient KATTY SANTOS MDA MDA [id number] 08:06:21 08:55:46 Manuel ng 2022-03-10 2022-03-10 Refill Stu, 1.2.840.1 [id number] Methodi 00:00:00 00:00:00 Maria Luisa 40831.1.[address] Ekenma 3.430.2.7 Hospit a .3.322225 l .8 2022-03-10 2022-03-10 Refill [facility], 1.2.840.1 [id number] 8595 Methodi 00:00:00 00:00:00 Maria Luisa 45157.1.[address] [place]kenma 3.430.2.7 Hospit a .3.778111 l .8 2022-03-08 2022-03-08 Patient Felippi, 1.2.840.1 [id number] Methodi 00:00:00 00:00:00 Outreach Valentino 47570.1.[address] 3.430.2.7 Hospit a .3.539208 l .8 2022-03-08 2022-03-08 Patient Felippi, 1.2.840.1 [id number] 69535 Methodi 00:00:00 00:00:00 Outreach Valentino 81003.1.[address] 3.430.2.7 Hospit a .3.866000 l .8 2022-02-24 2022-03-05 Hospital Herlinda LeCedrick 1.2.840.1 [id number] Methodi 21:55:00 18:55:00 Encounter Shailesh Araiza 59900.1.[address] Benitez Horvath 3.430.2.7 Hospita Marlen Elkins .3.522563 l Khadra Hylton .8 Mirta Lomas 2022-02-24 2022-03-05 [facility] ABEBE, 1.2.840.1 [id number] [place] 00:00:00 00:00:00 Encounter MIRTA 40410.1.1 [address] .3.760293 .8 2022-03-03 2022-03-03 Surgery [facility] 1.2.840.1 [id number] 5733 Methodi 08:30:00 09:20:00 Niko Mary 68060.1.[address] 3.430.2.7 Hospit a .3.163938 l .8 2022-03-03 2022-03-03 Surgery [facility], 1.2.840.1 [id number] 9787 Methodi 08:30:00 09:20:00 Nik[address] Martineze [address]709.1.[address] 3.430.2.7 Hospit a .3.773997 l .8 2022-03-02 2022-03-02 [facility] 2100 [id number] [place] 00:00:00 00:00:[address] 2022-02-23 2022-02-23 Travel 1.2.840.1 1.2.559.805 6843 196068 Methodi 00:00:00 00:00:[address] 3.430.2.7 0.2.7.3.698 Ho spita .3.150328 084.8 l .8 2022-02-23 2022-02-23 Telephone [facility], 1.2.840.1 [id number] [id number] Methodi 00:00:00 00:00:00 Maria Luisa 05666.1.[address] [place] 3.430.2.7 Hospit a .3.579593 l .8 2022-02-23 2022-02-23 Travel 1.2.840.1 1.2.135.964 5032 191963 Methodi 00:00:00 00:00:[address] 3.430.2.7 0.2.7.3.698 Ho spita .3.303274 084.8 l .8 2022-02-23 2022-02-23 Telephone [facility], 1.2.840.1 [id number] 2099 [id number] Methodi 00:00:00 00:00:00 Maria Luisa 31945.1.[address] [place] 3.430.2.7 Hospit a .3.294783 l .8 2022-02-11 2022-02-11 Outpatient FOG_Patel_A AOSM AOSM 641 2631-20 Radha 00:00:00 00:00:00 Theodora [id number] [facility] 2022-01-05 2022-01-05 Outpatient ALICE NORMAVal MDA MDA [id number] 13:31:37 23:59:00 SELAM ng 2022-01-04 2022-01-04 Outpatient KATTY SANTOS MDA MDA [id number] 09:54:07 09:54:07 Manuel ng 2022-01-03 2022-01-03 Outpatient ALICE SOLOMON MAXIME MDA [id number] 09:27:06 23:59:00 JAKE ng 2022-01-03 2022-01-03 Outpatient ALICE GARNER MDA MDA [id number] 09:00:00 09:26:00 LETTY ng 2021-12-24 2021-12-24 Telephone [place] 1.2.840.1 [id number] [id number] Methodi 00:00:00 00:00:[address] 3.430.2.7 Hospit a .3.903605 l .8 2021-12-21 2021-12-22 Outpatient [facility] [id number] [id number] Memoria 22:04:00 04:59:00 [facility]an [facility] 2021-12-21 2021-12-21 Outpatient [facility] 2199 Memoria 17:04:00 23:59:00 HOLLY Baker [facility] 2021-12-01 2021-12-01 Telemedici June Villalba 1.2.840.1 [id number] Methodi 13:00:00 13:35:33 [facility] [address]23.1.[address] 3.430.2.7 Hospit a .3.810003 l .8 2021-12-01 2021-12-01 Travel 1.2.840.1 1.2.254.213 2966 [id number] Methodi 00:00:00 00:00:[address] 3.430.2.7 0.2.7.3.698 Ho spita .3.950750 084.8 l .8 2021-11-03 2021-11-03 Telemedici Shante, 1.2.840.1 [id number] [id number] Methodi 18:30:00 18:33:03 ne Rehan Frances 75604.1.[address] 3.430.2.7 Hospit a .3.175040 l .8 2021-10-15 2021-10-15 Refill Fausto, 1.2.840.1 [id number] 0424 Methodi 00:00:00 00:00:[address] 3.430.2.7 Hospit a .3.648875 l .8 2021-10-12 2021-10-12 Telephone [facility], 1.2.840.1 [id number] Methodi 00:00:00 00:00:[address] 3.430.2.7 Hospit a .3.778154 l .8 2021-09-22 2021-09-22 Telemedici [facility], 1.2.840.1 [id number] Methodi 15:45:00 16:18:03 ne Maria Luisa 95451.1.[address] [place] 3.430.2.7 Hospit a .3.225592 l .8 2021-09-21 2021-09-21 Telephone [facility], 1.2.840.1 [id number] 2099 [id number] Methodi 00:00:00 00:00:00 Maria Luisa [address]00.1.[address] [place] 3.430.2.7 Hospit a .3.662058 l .8 2021-09-16 2021-09-16 Outpatient ALICE MAHONEY MDA MDA [id number] 08:59:27 23:59:00 ABDIAS ng 2021-09-15 2021-09-15 Outpatient ALICE MAHONEY MDA MDA [id number] MD 09:00:00 23:59:00 ABDIAS ng 2021-09-14 2021-09-14 Outpatient EL MARU, MDA MDA [id number] MD 09:00:00 23:59:00 ABDIAS ng 2021-09-11 2021-09-11 Outpatient ALICE VARGASIN, MDA MDA [id number] MD 08:47:26 23:59:00 ABDIAS ng 2021-09-09 2021-09-09 Outpatient ALICE VARGASIN, MDA MDA [id number] MD 08:55:00 23:59:00 ABDIAS ng 2021-09-08 2021-09-08 Outpatient EL GeorgiABDOULAYEY, MDA MDA [id number] MD 09:15:00 23:59:00 SELAM ng 2021-09-08 2021-09-08 Outpatient ALICE MAHONEY, MDA MDA [id number] MD 10:05:54 10:18:30 ABDIAS ng 2021-09-08 2021-09-08 Outpatient ALICE MAHONEY, MDA MDA [id number] MD 08:55:00 09:14:00 ABDIAS ng 2021-09-07 2021-09-07 Outpatient ALICE MAHONEY, MDA MDA [id number] MD 08:40:00 23:59:00 ABDIAS ng 2021-09-07 2021-09-07 Outpatient ALICE GARNER, MDA MDA [id number] 09:36:44 13:33:40 LETTY ng 2021-09-07 2021-09-07 Outpatient ALICE GARNER, MDA MDA [id number] 06:45:00 08:39:00 LETTY ng 2021-09-07 2021-09-07 Outpatient KATTY SANTOS MDA MDA [id number] 07:30:16 08:35:50 Manuel ng 2021-09-03 2021-09-03 Outpatient MELODY HARPER MDA MDA [id number] 08:03:28 23:59:00 Manuel ng 2021-09-03 2021-09-03 Outpatient ALICE VARGASIN, MDA MDA [id number] MD 07:22:43 08:02:00 ABDIAS ng 2021-09-02 2021-09-02 Outpatient EL MARU, MDA MDA [id number] MD 08:15:00 23:59:00 ABDIAS ng 2021-09-01 2021-09-01 Outpatient EL O`LANGSTON, MDA MDA [id number] MD 09:00:00 23:59:00 SELAM ng 2021-09-01 2021-09-01 Telemedic June Villalba 1.2.840.1 [id number] Methodi 13:45:00 14:18:[address] [facility] [address]89.1.[address] 3.430.2.7 Hospit a .3.419136 l .8 2021-09-01 2021-09-01 Outpatient EL MARU, MDA MDA [id number] MD 09:31:26 09:41:59 ABDIAS ng 2021-09-01 2021-09-01 Outpatient EL MARU, MDA MDA [id number] MD 08:55:00 08:59:00 ABDIAS ng 2021-08-31 2021-08-31 Outpatient EL GARNER, MDA MDA [id number] 09:58:52 23:59:00 LETTY ng 2021-08-31 2021-08-31 Outpatient EL MARU, MDA MDA [id number] MD 08:48:06 09:57:00 ABDIAS ng 2021-08-31 2021-08-31 Outpatient EL ROXANNE, REZAUNING MDA MDA [id number] 07:44:35 08:51:18 Manuel ng 2021-08-31 2021-08-31 Outpatient EL GARNER, MDA MDA [id number] 06:15:00 08:47:00 LETTY ng 2021-08-28 2021-08-28 Outpatient EL O`LANGSTON, MDA MDA [id number] 09:26:18 23:59:00 SELAM ng 2021-08-28 2021-08-28 Outpatient EL MARU, MDA MDA [id number] MD 08:59:33 09:25:00 ABDIAS ng 2021-08-27 2021-08-27 Outpatient EL MARU, MDA MDA [id number] MD 08:58:40 23:59:00 SURENA Manuel o n 2021-08-26 2021-08-26 Outpatient EL MARU, MDA MDA [id number] MD 08:40:00 23:59:00 SURENA Manuel o n 2021-08-25 2021-08-25 Outpatient EL MARU, MDA MDA [id number] MD 07:00:00 23:59:00 SURENA Manuel o n 2021-08-25 2021-08-25 Anesthesia Elias Castro [facility] [id number] 14:39:00 16:04:00 Event Sid Villanueva [facility] 2021-08-25 2021-08-25 Outpatient [facility] Surgery [id number] [facility] 08:03:00 15:51:00 , [facility] 2021-08-25 2021-08-25 [facility] [id number] 08:03:00 15:51:00 Encounter , [facility] 2021-08-25 2021-08-25 Surgery [facility] [id number] 13:40:00 15:32:00 , [facility] 2021-08-24 2021-08-24 Outpatient [facility] [id number] SLE 08:25:23 23:59:00 2021-08-24 2021-08-24 [facility] [id number] 08:00:00 23:59:00 Encounter , [facility] 2021-08-24 2021-08-24 Outpatient ALICE MAHONEY, MDA MDA [id number] 06:59:52 23:59:00 SUREVAHID Manuel o n 2021-08-24 2021-08-24 Outpatient ALICE GARNER MDA MDA [id number] 09:01:53 14:36:20 LETTY ng 2021-08-24 2021-08-24 Outpatient KATTY SANTOS MDA MDA [id number] 07:38:24 08:51:42 Manuel o berenice 2021-08-24 2021-08-24 Outpatient ALICE GARNER MDA MDA [id number] 06:15:00 06:58:00 LETTY ng 2021-08-24 2021-08-24 Travel [facility] [id number] [facility] 00:[facility]00 00:00:00 [facility] 2021-08-21 2021-08-21 Outpatient ALICE MAHONEY MDA MDA [id number] 07:17:44 23:59:00 ABDIAS Jackson o berenice 2021-08-20 2021-08-20 Outpatient [facility] SLE [id number] SLEH 09:26:32 23:59:00 , [facility] 2021-08-20 2021-08-20 [facility] [id number] 20 [id number] [facility] 09:15:00 23:59:00 Encounter , [facility] 2021-08-20 2021-08-20 Outpatient ALICE MAHONEY MDA MDA [id number] 07:17:28 23:59:00 ABDIAS Jackson o berenice 2021-08-20 2021-08-20 Outpatient [facility] SLE [id number] SLEH 08:10:33 09:14:00 , [facility] 2021-08-20 2021-08-20 [facility] [id number] 20 [id number] [facility] 08:10:33 09:14:00 Encounter , [facility] 2021-08-20 2021-08-20 Outpatient [facility] SLE [id number] [facility] 00:00:00 00:00:00 2021-08-20 2021-08-20 Outpatient [facility]H [id number] [facility] 00:00:00 00:00:00 , [facility] 2021-08-19 2021-08-19 Outpatient ALICE MAHONEY MDA MDA [id number] MD 07:18:38 23:59:00 ABDIAS Jackson o berenice 2021-08-18 2021-08-18 Outpatient ALICE ROPER MDA MDA [id number] 08:06:36 23:59:00 SELAM ng 2021-08-18 2021-08-18 Outpatient EL MARU, MDA MDA [id number] MD 11:31:43 11:46:42 ABDIAS ng 2021-08-18 2021-08-18 Outpatient EL AMRU, MDA MDA [id number] MD 07:31:00 08:05:00 ABDIAS ng 2021-08-18 2021-08-18 Outpatient EL SLE SLE [id number] SLE 00:00:00 00:00:00 2021-08-18 2021-08-18 Outpatient EL SLE SLE [id number] SLE 00:00:00 00:00:00 2021-08-17 2021-08-17 Outpatient EL PATSY, MDA MDA [id number] 09:23:22 23:59:00 LETTY ng 2021-08-17 2021-08-17 Outpatient EL MARU, MDA MDA [id number] 06:44:43 09:22:00 ABDIAS ng 2021-08-17 2021-08-17 Outpatient EL KATTY OLIVEIRA MDA MDA [id number] 08:42:44 09:00:42 Manuel ng 2021-08-17 2021-08-17 Outpatient EL PATSY, MDA MDA [id number] 06:15:00 06:43:00 LETTY ng 2021-08-14 2021-08-14 Office [facility], 1.2.840.1 [id number] Methodi 11:15:00 12:02:24 Visit Maria Luisa 27603.1.1 802 [facility] 3.430.2.7 Hospit a .3.966465 l .8 2021-08-13 2021-08-13 Outpatient EL SLE SLEH [id number] SLE 11:55:06 23:59:00 2021-08-13 2021-08-13 [facility] [id number] [facility] 10:20:00 23:59:00 [facility] 2021-08-13 2021-08-13 Outpatient EL MARU, MDA MDA [id number] 07:30:20 23:59:00 ABDIAS Casasers o n 2021-08-13 2021-08-13 Poly Lambert, 1.2.840.1 [id number] Methodi 00:00:00 00:00:[address] 3.430.2.7 Hospit a .3.797009 l .8 2021-08-13 2021-08-13 Travel 1.2.840.1 1.2.808.929 [id number] Methodi 00:00:00 00:00:[address] 3.430.2.7 0.2.7.3.698 Ho spita .3.020290 084.8 l .8 2021-08-13 2021-08-13 Telephone [facility], 1.2.840.1 [id number] Methodi 00:00:00 00:00:00 Maria Luisa 81341.1.[address] [place] 3.430.2.7 Hospit a .3.533601 l .8 2021-08-13 2021-08-13 Travel [facility] [id number] [facility] 00:[facility] 00:00:00 [facility] 2021-08-13 2021-08-13 Orders [facility] [id number] 00:00:00 00:00:00 Only , [facility] 2021-08-12 2021-08-12 Outpatient ALICE MAHONEY MDA MDA [id number] 07:33:44 23:59:00 ABDIAS Jackson o berenice 2021-08-12 2021-08-12 Telephone [facility], 1.2.840.1 [id number] Methodi 00:00:00 00:00:00 Maria Luisa 03462.1.[address] [place] 3.430.2.7 Hospit a .3.237096 l .8 2021-08-11 2021-08-11 Outpatient ALICE ROPER MDA MDA [id number] 08:09:17 23:59:00 SELAM ng 2021-08-11 2021-08-11 Outpatient EL MARU, MDA MDA [id number] 13:46:43 13:57:23 ABDIAS ng 2021-08-11 2021-08-11 Outpatient ALICE MARU, MDA MDA [id number] MD 07:19:39 08:08:00 ABDIAS ng 2021-08-10 2021-08-10 Outpatient EL PATSY, MDA MDA [id number] 11:04:53 23:59:00 LETTY ng 2021-08-10 2021-08-10 Outpatient ALICE GARNER, MDA MDA [id number] 07:47:32 11:03:00 LETTY ng 2021-08-10 2021-08-10 Outpatient KATTY SANTOS MDA MDA [id number] 09:11:58 10:58:53 Manuel ng 2021-08-10 2021-08-10 Outpatient ALICE MAHONEY, MDA MDA [id number] MD 06:56:09 07:46:00 ABDIAS ng 2021-08-10 2021-08-10 [facility] Cr, 1.2.840.1 [id number] Methodi 00:00:00 00:00:00 Only Ariana 47038.1.[address] 3.430.2.7 Hospit a .3.941174 l .8 2021-08-07 2021-08-07 Outpatient EL MARU, MDA MDA [id number] MD 07:11:08 23:59:00 ABDIAS ng 2021-08-06 2021-08-06 Outpatient EL MARU, MDA MDA [id number] MD 07:11:45 23:59:00 ABDIAS ng 2021-08-05 2021-08-05 Outpatient EL MARU, MDA MDA [id number] MD 07:23:48 23:59:00 ABDIAS ng 2021-08-04 2021-08-04 Outpatient EL NORMAY, MDA MDA [id number] 08:59:37 23:59:00 SELAM ng 2021-08-04 2021-08-04 Telemedici June Villalba 1.2.840.1 [id number] Methodi 14:45:00 14:45:00 [facility] [address] 3.430.2.7 Hospit a .3.076449 l .8 2021-08-04 2021-08-04 Outpatient ALICE MAHONEY, MDA MDA [id number] 13:34:43 14:01:23 ABDIAS ng 2021-08-04 2021-08-04 Outpatient ALICE MAHONEY, MDA MDA [id number] MD 08:05:00 08:58:00 ABDIAS ng 2021-08-04 2021-08-04 [facility] 1.2.840.1 1.2.801.412 [id number] Methodi 00:00:00 00:00:[address] 3.430.2.7 0.2.7.3.698 spita .3.443770 084.8 l .8 2021-08-03 2021-08-03 Outpatient ALICE GARNER, MDA MDA [id number] 13:00:00 23:59:00 LETTY ng 2021-08-03 2021-08-03 Outpatient ALICE MAHONEY, MDA MDA [id number] 12:55:00 12:59:00 ABDIAS ng 2021-08-03 2021-08-03 Outpatient ALICE GARNER, MDA MDA [id number] 10:15:00 12:54:00 LETTY ng 2021-08-03 2021-08-03 Outpatient KATTY OLIVEIRA MDA MDA [id number] 10:57:26 12:32:53 Manuel ng 2021-07-28 2021-07-28 Outpatient EL LIZZY-MAXI MDA MDA [id number] 12:41:00 23:59:00 Manuel SHAW 2021-07-27 2021-07-27 Outpatient EL MARU, MDA MDA [id number] 15:30:00 23:59:00 ABDIAS ng 2021-07-27 2021-07-27 Outpatient EL LE, XIUNING MDA MDA [id number] 11:22:57 14:58:24 Manuel ng 2021-07-24 2021-07-24 Outpatient EL OCHARLIE, MDA MDA [id number] MD 13:00:00 23:59:00 SELAM ng 2021-07-24 2021-07-24 Outpatient EL ADIA, MDA MDA [id number] 05:41:00 12:59:00 MAHSA ng 2021-07-24 2021-07-24 Outpatient EL MARU, MDA MDA [id number] 11:43:32 11:53:19 ABDIAS ng 2021-07-23 2021-07-23 Outpatient EL LE, XIUNING MDA MDA [id number] 18:38:00 23:59:00 Manuel ng 2021-07-23 2021-07-23 Outpatient EL PATSY, MDA MDA [id number] 15:13:31 15:13:31 LETTY Munoz so berenice 2021-07-22 2021-07-22 Outpatient EL LE, XIUNING MDA MDA [id number] 12:29:49 23:59:00 Manuel ng 2021-07-22 2021-07-22 Outpatient EL NOHELIA, MDA MDA [id number] MD 09:26:20 10:33:54 MIKAELA ng 2021-07-20 2021-07-20 Outpatient EL KEREN, MDA Pul Med [id number] 08:18:00 11:52:00 RAMAKRISHNA ng 2021-07-17 2021-07-17 Outpatient EL JENNY, MDA MDA [id number] 11:30:00 23:59:00 SPRING ng 2021-07-17 2021-07-17 Outpatient EL KEREN, MDA MDA [id number] MD 12:54:29 14:19:36 RAMAKRISHNA ng 2021-07-17 2021-07-17 Outpatient EL LE, XIUNING MDA MDA [id number] 08:00:00 11:29:00 Manuel ng 2021-07-17 2021-07-17 Outpatient ALICE MAHONEY MDA MDA [id number] 07:44:27 07:44:27 SURENA Manuel o n 2021-07-13 2021-07-13 Outpatient KATTY SANTOS MDA MDA [id number] 11:57:46 23:59:00 Manuel o n 2021-07-13 2021-07-13 Outpatient KATTY SANTOS MDA MDA [id number] 10:23:51 11:52:46 Manuel o n 2021-07-01 2021-07-01 Emergency [facility] [id number] 10:46:00 12:48:00 [facility] 2021-07-01 2021-07-01 Emergency [facility] [id number] [facility] 10:46:00 12:48:00 [facility] 2021-07-01 2021-07-01 Travel [facility] [id number] [facility] 00:00:00 00:00:00 [facility] 2021-06-22 2021-06-22 Outpatient JUNE VILLALBA [facility] [id number] [place] 00:00:00 00:00:[address] 2021-06-22 2021-06-22 Travel 1.2.840.1 1.2.190.377 [id number] Methodi 00:00:00 00:00:[address] 3.430.2.7 0.2.7.3.698 spita .3.303188 084.8 l .8 2021-06-14 2021-06-16 Hospital ER Harika Torres [facility] [id number] 02:23:00 17:02:00 Encounter Mateo Riley Sophia [facility] 2021-06-14 2021-06-16 Inpatient ER STACY [facility] Internal [id number] [facility] 02:23:00 17:02:00 MAYTE [facility] 2021-06-15 2021-06-15 Telemedici June Villalba 1.2.840.1 [id number] Methodi 13:15:00 13:30:00 nc Venkata 80023.1.[address] 3.430.2.7 [facility]3.679008 l .8 2021-06-10 2021-06-14 Outpatient ROSE JOHNS Surgery [id number] [facility] 10:03:00 02:21:00 [facility] 2021-06-10 2021-06-14 [facility] [id number] 10:03:00 02:21:00 Encounter [facility] 2021-06-10 2021-06-10 Surgery [facility], [facility] [id number] 11:30:00 12:30:00 Surgeon [facility] 2021-06-10 2021-06-10 Anesthesia Elias Castro [facility] [id number] 11:30:00 11:30:00 Event Halle Roberts [facility] 2021-06-10 2021-06-10 Outpatient TIANA JOHNS SLE [id number] SLE 10:09:07 10:09:07 [facility] 2021-06-09 2021-06-09 Outpatient ALICE SLEArturo SLE [id number] [facility] 08:36:26 23:59:00 2021-06-09 2021-06-09 [facility] [id number] 08:10:00 23:59:[address] [facility] 2021-06-09 2021-06-09 Travel [facility] [id number] [facility] 00:00:00 00:00:00 [facility] 2021-06-08 2021-06-08 Outpatient ALICE SLEArturo SLE [id number] [facility] 14:15:07 14:15:07 2021-06-08 2021-06-08 Clinical Hill Johns [facility] [id number] 14:00:00 14:15:00 [facility] 2021-06-08 2021-06-08 Travel [facility] [id number] [facility] 00:00:00 00:00:00 [facility] 2021-06-03 2021-06-03 Outside [facility], [facility] [id number] 00:00:00 00:00:00 Orders [facility] 2021-04-22 2021-04-23 [facility] [id number] Memoria 11:46:00 00:47:00 Surgery r Samuel [facility] 2021-04-22 2021-04-22 [facility] 7569 Memoria 05:46:00 18:47:00 NITO Baker [facility] 2021-04-14 2021-04-14 Telemedici June Villalba 1.2.840.1 [id number] Methodi 09:30:00 10:29:55 ne Tamiko-Miranda 64100.1.[address] 3.430.2.7 Hospit a .3.658431 l .8 2021-04-14 2021-04-14 Travel 1.2.840.1 1.2.397.247 7531 [id number] Methodi 00:00:00 00:00:[address] 3.430.2.7 0.2.7.3.698 spita .3.697604 084.8 l .8 2021-03-17 2021-03-17 Telemedici Deejay June 1.2.840.1 [id number] Methodi 10:00:00 10:53:50 ne Tamiko-Ju 01088.1.[address] 3.430.2.7 Hospit a .3.004104 l .8 2021-03-17 2021-03-17 Travel 1.2.840.1 1.2.517.959 [id number] Methodi 00:00:00 00:00:[address] 3.430.2.7 0.2.7.3.698 Ho spita .3.320125 084.8 l .8 2021-03-03 2021-03-03 Outpatient TARYN, [facility] [id number] [place] 00:00:00 00:00:00 MATEO [address] 2021-02-23 2021-02-23 Outpatient ALICE MAHONEY MDA MDA [id number] 09:30:42 18:22:00 SURENA Manuel o n 2021-02-23 2021-02-23 Outpatient EL MDA MDA [id number] 09:18:11 09:26:24 Manuel o n 2021-02-11 2021-02-11 Outpatient Mineo_M [facility] [id number] [place] 10:32:00 10:32:00 [facility]7899 [facility] 2021-02-10 2021-02-10 Outpatient Mineo_M [facility] [id number] [place] 09:50:00 09:50:00 21555 [facility] 2021-01-30 2021-01-30 Outpatient ALICE MAHONEY, MDA MDA [id number] MD 22:19:58 22:19:58 SUREVAHID Manuel o n 2021-01-13 2021-01-13 Outpatient VILLABLAJUNE [facility] [id number] [place] 00:00:00 00:00:[address] 2021-01-06 2021-01-06 Outpatient TARYN, [facility] [id number] [place] 00:00:00 00:00:00 MATEO [address] 2020-11-20 2020-12-20 OP Therapy nullFlavo [facility] [id number] Memoria 16:30:00 04:59:00 Patients r Bobby 44 l Saqib Baker 2020-12-16 2020-12-16 Outpatient VILLALBAJUNE [facility] [id number] [place] 00:00:00 00:00:[address] 2020-12-11 2020-12-11 Outpatient TARYN, [facility] [id number] [place] 00:00:00 00:00:00 MATEO [address] 2020-10-29 2020-10-29 Outpatient VILLALBAJUNE [facility] [id number] [place] 00:00:00 00:00:[address] 2020-10-21 2020-10-21 Outpatient TARYN, [facility] [id number] [place] 00:00:00 00:00:00 MATEO [address] 2020-10-21 2020-10-21 Outpatient TARYN, [facility] [id number] [place] 00:00:00 00:00:00 MATEO 793 Method i 2020-10-15 2020-10-15 Outpatient TARYN, [facility] [id number] [place] 00:00:00 00:00:00 MATEO 311 Method i 2020-09-30 2020-09-30 Outpatient DREW, [facility] [id number] [place] 00:00:00 00:00:00 TODD 542 Method i 2020-08-19 2020-09-18 OP Therapy nullFlavo SMR [id number] Memoria 14:00:00 04:59:00 Patients ishaan Rosales 42 l Saqib Baker 2020-09-17 2020-09-17 Outpatient DREW, [facility] [id number] [place] 00:00:00 00:00:00 TODD 502 Method i 2020-09-08 2020-09-08 Outpatient UMAH, [facility] [id number] [place] 00:00:00 00:00:00 MARIA LUISA 482 Metho di 2020-08-26 2020-08-26 Outpatient JUNE VILLALBA [facility] [id number] [place] 00:00:00 00:00:00 527 Method i 2020-08-21 2020-08-21 Outpatient ROBBEN, [facility] [id number] [place] 00:00:00 00:00:00 KATHIE 272 thodi 2020-07-15 2020-08-14 OP Therapy nullFlavo SMR [id number] Memoria 21:00:00 05:59:00 Patients ishaan Rosales 41 l Saqib Baker 2020-08-06 2020-08-06 Outpatient TARYN, [facility] [id number] [place] 00:00:00 00:00:00 MATEO 921 Method i 2020-07-31 2020-07-31 Outpatient [facility] [id number] [place] 00:00:00 00:00:[address] 2020-07-29 2020-07-29 Outpatient JUNE VILLALBA [facility] [id number] [place] 00:00:00 00:00:[address] 2020-07-24 2020-07-24 Outpatient DREW, [facility] [id number] [place] 00:00:00 00:00:00 TODD [address] 2020-07-15 2020-07-15 Outpatient JUNE VILLALBA [facility] [id number] [place] 00:00:00 00:00:[address] 2020-06-12 2020-07-12 OP Therapy nullFlavo SMR [id number] Memoria 16:00:00 05:59:00 Patients r Bobby 40 l Saqib Baker 2020-07-08 2020-07-08 Outpatient DREW, [facility] [id number] [place] 00:00:00 00:00:00 TODD 310 Method i 2020-06-30 2020-06-30 Outpatient TARYN, [facility] [id number] [place] 00:00:00 00:00:00 MATEO 387 Method i 2020-06-24 2020-06-24 Outpatient TARYN, [facility] [id number] [place] 00:00:00 00:00:00 MATEO 223 Method i 2020-06-24 2020-06-24 Outpatient TARYN, [facility] [id number] [place] 00:00:00 00:00:00 MATEO [address] 2020-06-10 2020-06-10 Outpatient ALICE MOORE MDA Amy/Hep/Nu 1 [id number] 09:06:00 12:12:00 BISHOP ng 2020-06-09 2020-06-09 Outpatient ALICE LAM MDA MDA [id number] 07:26:24 07:26:24 GEORGE ng 2020-06-08 2020-06-08 Outpatient ALICE LAM MDA MDA [id number] 15:02:07 15:37:53 GEORGE ng 2020-05-08 2020-06-06 OP Therapy nullFlavo SMR [id number] Memoria 14:00:00 02:00:00 Patients r Bobby 39 l Trace Samuel 2020-05-26 2020-05-26 Outpatient VILLALBA, JUNE [facility] [id number] [place] 00:00:00 00:00:[address] 2020-05-21 2020-05-21 Outpatient ALICE MOORE, MDA MDA [id number] 13:16:25 14:00:26 BISHOP ng 2020-05-15 2020-05-15 Outpatient GRESSOT, [facility] [id number] [place] 00:00:00 00:00:00 LIA [address] 2020-05-15 2020-05-15 Outpatient GRESSOT, [facility] [id number] [place] 00:00:00 00:00:00 LIA [address] 2020-03-31 2020-04-30 OP Therapy nullFlavo SMR [id number] Memoria 13:00:00 05:59:00 Patients r Bobby 38 l Saqib Baker 2020-04-29 2020-04-29 Outpatient VILLALBA, JUNE [facility] [id number] [place] 00:00:00 00:00:[address] 2020-04-22 2020-04-22 Outpatient TARYN, [facility] [id number] [place] 00:00:00 00:00:00 MATEO [address] 2020-04-01 2020-04-01 Outpatient VILLALBA, JUNE [facility] [id number] [place] 00:00:00 00:00:[address] 2020-04-01 2020-04-01 Outpatient GRESSOT, [facility] [id number] [place] 00:00:00 00:00:00 LIA [address] 2020-02-28 2020-03-29 OP Therapy nullFlavo SMR [id number] [place] 17:40:00 04:59:00 Patients r Bobby 37 l Trace Samuel 2020-03-04 2020-03-04 Outpatient VILLALBA, JUNE [facility] [id number] [place] 00:00:00 00:00:[address] [facility] 2020-02-26 2020-02-26 Outpatient ALICE MARTINEZ MDA MDA [id number] 15:42:16 23:59:00 RIVKA ng 2020-02-26 2020-02-26 Outpatient ALICE MILLER MDA MDA [id number] 14:21:13 15:41:00 DEREK Casasers o berenice 2020-02-26 2020-02-26 Outpatient ALICE MARTINEZ MDA MDA [id number] 15:18:11 15:36:58 RIVKA Jackson o n 2020-02-26 2020-02-26 Outpatient ALICE MILLER MDA MDA [id number] 13:32:56 14:20:00 DEREK Jackson o berenice 2020-02-26 2020-02-26 Outpatient ALICE MARTINEZ MDA MDA [id number] 11:59:25 13:22:27 RIVKA Casasers o n 2020-01-30 2020-01-30 Outpatient VILLALBA, JUNE [facility] [id number] [place] 00:00:00 00:00:[address] 2020-01-01 2020-01-01 Outpatient VILLALBA, JUNE [facility] [id number] [place] 00:00:00 00:00:[address] 2019-12-18 2019-12-18 Outpatient GRESSOT, [facility] [id number] [place] 00:00:00 00:00:00 LIA [address] 2019-12-14 2019-12-14 Outpatient GRESSOT, [facility] [id number] [place] 00:00:00 00:00:00 LIA [address] 2019-12-06 2019-12-06 Outpatient GRESSOT, [facility] [id number] [place] 00:00:00 00:00:00 LIA [address] 2019-12-04 2019-12-04 Outpatient VILLALBA, JUNE [facility] [id number] [place] 00:00:00 00:00:[address] 2019-11-06 2019-11-06 Outpatient VILLALBA, JUNE [facility] [id number] [place] 00:00:00 00:00:[address] 2019-10-16 2019-10-17 Outpatient GRESSOT, [facility] [id number] [place] 00:00:00 00:00:00 LIA [address] 2019-10-08 2019-10-08 Outpatient GRESSOT, [facility] [id number] [place] 00:00:00 00:00:00 LIA [address] 2019-10-08 2019-10-08 Outpatient VILLALBA, JUNE [facility] [id number] [place] 00:00:00 00:00:00 [address] 2019-09-12 2019-09-12 Outpatient VILLALBA, JUNE [facility] [id number] [place] 00:00:00 00:00:[address] 2019-08-17 2019-08-17 Outpatient RASHEED, [facility] [id number] [place] 00:00:00 00:00:00 REY [address] 2019-08-16 2019-08-16 Outpatient GRESSOT, [facility] [id number] [place] 00:00:00 00:00:00 LIA [address] 2019-08-16 2019-08-16 Outpatient GRESSOT, [facility] [id number] [place] 00:00:00 00:00:00 LIA [address] 2019-08-08 2019-08-08 Out[facility] [facility] [id number] [place] 00:00:00 00:00:00 LIA [address] 2019-08-08 2019-08-08 Outpatient GRESSOT, [facility] [id number] [place] 00:00:00 00:00:00 LIA [address] 2019-08-08 2019-08-08 Outpatient GRESS[facility], [facility] [id number] [place] 00:00:00 00:00:00 LIA [address] 2019-08-08 2019-08-08 Outpatient GRESSOT, [facility] [id number] [place] 00:00:00 00:00:00 LIA [address] 2018-10-03 2018-10-03 Tayler MUJICA, UTP UTP [facility] [id number] [place] 14:00:00 14:00:00 t; Nav VALDIVIA i, M.D. Medical ans DONALD, Plaza M.D. 2018-08-29 2018-08-29 DAMI Hobbs UTP [id number] [place] 15:00:00 15:00:00 t; Isreal DOSS M.D. ans MICHAEL, M.D. 2018-08-08 2018-08-08 [facility] [id number] [place] 14:30:00 14:30:00 t; MARCO ANTONIO [facility] at [facility], M.D. Hermann ans M.D. [facility] 2018-08-01 2018-08-02 Outpatient nullFlavo MNA [id number] [place] 20:00:00 05:59:59 r Neurology 33 l [facility] 2018-07-31 2018-08-02 Phone nullFlavo MNA [id number] [facility] 22:20:00 05:59:59 Message r Neurology 01 l [facility] 2018-07-12 2018-07-14 Phone nullFlavo MNA [id number] [facility] 16:43:00 05:59:59 Message r Neurology 00 l [facility] 2018-05-02 2018-05-02 Recurring nullFlavo TIRR [id number] [place] 06:00:00 17:05:00 [facility] 36 l [facility] 2017-09-28 2018-03-19 Outpatient C TARYN, [facility] [id number] [place] 15:15:00 23:59:00 [facility] 2018-02-20 2018-02-21 Day nullFlavo [facility] [id number] [place] 16:26:00 04:59:00 Surgery r [place] 68 l [facility] 2018-02-20 2018-02-20 AppointDAMI Del Castillo UTP [id number] [place] 12:30:00 12:30:00 t; DAVID CLARK D.O. P hysici JASON, ans D.OMica 2018-01-11 2018-01-11 AppointDAMI Del Castillo PM&R [facility] [id number] [place] 11:00:00 11:00:00 t; DAVID CLARK D.O. [facility] JASON, ans D.OMica 2018-01-02 2018-01-02 Tayler DEE [facility] [id number] [place] 13:00:00 13:00:00 t; BRONSON GAFFNEY Phys ici GALLOZA-OT M.D. ans ERO, JUAN, M.D. 2017-11-09 2017-11-10 Outpatient nullFlavo TIRR [id number] [place] 17:58:00 04:59:00 r [facility] 66 [facility] 2017-10-05 2017-10-06 Outpatient nullFlavo TIRR [id number] [place] 14:07:00 04:59:00 r [facility] 65 [facility] 2017-06-18 2017-08-29 Outpatient Linda [facility] 1 [id number] [place] 10:24:00 23:59:00 [facility] 2016-07-07 2017-06-16 Outpatient Linda [facility] 1 [id number] [place] 07:45:00 10:23:00 [facility] 2017-05-11 2017-05-12 Outpatient nullFlavo TIRR [id number] [place] 16:01:00 05:59:00 r [facility] 63 [facility] 2017-04-21 2017-04-21 Appointmen GALLOZA-OTE UTP UTP [id number] [place] 14:30:00 14:30:00 t; BRONSON GAFFNEY Phys ici GALLOZIvone-BRONSON Dominguez M.D., M.D. 2017-04-14 2017-04-14 Appointmen GALLOZA-OTE UTP UTP [id number] [place] 14:30:00 14:30:00 t; BRONSON GAFFNEY Phys ici GALLOZA-OT BRONSON Stratton M.D. 2017-04-11 2017-04-11 Outpatient SLE SLE [id number] SLE 11:16:01 11:16:01 2017-03-10 2017-03-11 Outpatient nullFlavo TIRR [id number] [place] 21:06:00 04:59:00 r [facility] 64 [facility] 2017-02-09 2017-02-10 Outpatient nullFlavo TIRR [id number] [place] 15:29:00 04:59:00 r [facility] 57 [facility] 2017-01-26 2017-01-27 Outpatient nullFlavo TIRR [id number] [facility] 21:22:00 04:59:00 r [facility] 61 [facility] 2017-01-05 2017-01-06 Outpatient nullFlavo TIRR [id number] [facility] 16:39:00 04:59:00 r [facility] 60 l [facility] 2016-12-15 2016-12-16 Outpatient nullFlavo TIRR [id number] [facility] 21:04:00 04:59:00 r [facility] 58 l [facility] 2016-11-10 2016-11-11 Outpatient nullFlavo TIRR [id number] [place] 14:11:00 04:59:00 r [facility] 56 l [facility] 2016-10-28 2016-10-29 Outpatient nullFlavo TIRR [id number] [facility] 19:52:00 04:59:00 r [facility] 52 l [facility] 2016-10-20 2016-10-21 Outpatient nullFlavo TIRR [id number] [facility] 21:12:00 04:59:00 r [facility] 55 l [facility] 2016-10-14 2016-10-15 Outpatient nullFlavo TIRR [id number] [facility] 20:29:00 04:59:00 r [facility] 54 l [facility] 2016-10-08 2016-10-09 Outpatient nullFlavo TIRR [id number] [facility] 21:11:00 04:59:00 r [facility] 53 l [facility] 2016-09-15 2016-09-16 Outpatient nullFlavo T[facility]R [id number] [facility] 18:47:00 04:59:00 r [facility] 51 l [facility] 2016-07-29 2016-07-30 Outpatient nullFlavo TIRR [id number] [facility] 20:26:00 05:59:00 r [facility] 50 l [facility] 2016-07-01 2016-07-02 Outpatient nullFlavo TIRR [id number] [facility] 19:41:00 05:59:00 r [facility] 49 l [facility] 2016-06-09 2016-06-15 Recurring nullFlavo TIRR [id number] [place] 14:00:00 14:00:00 r [facility] 35 l [facility] 2016-06-11 2016-06-12 Outpatient nullFlavo TIRR [id number] [facility] 20:40:00 05:59:00 r [facility] 47 [facility] 2016-06-02 2016-06-03 Outpatient nullFlavo TIRR [id number] [facility] 20:42:00 05:59:00 r [facility] 44 l [facility] 2016-05-20 2016-05-21 Outpatient nullFlavo TIRR [id number] [facility] 20:03:00 05:59:00 r [facility] 46 l [facility] 2016-03-18 2016-03-19 Outpatient nullFlavo TIRR [id number] [facility] 18:28:00 04:59:00 r [facility] 45 [facility] 2016-03-03 2016-03-04 Outpatient nullFlavo TIRR [id number] [facility] 17:52:00 04:59:00 r [facility] 42 l [facility] 2015-12-03 2015-12-04 Outpatient nullFlavo TIRR [id number] [facility] 15:59:00 04:59:00 r [facility] 41 [facility] 2015-08-27 2015-08-28 Outpatient nullFlavo TIRR [id number] [facility] 16:07:00 04:59:00 r [facility] 39 l [facility] 2015-06-17 2015-06-18 Outpatient nullFlavo TIRR [id number] [facility] 20:00:00 05:59:00 r [facility] 36 l [facility] 2015-05-14 2015-05-15 Outpatient nullFlavo TIRR [id number] [facility] 16:00:00 05:59:00 r [facility] 35 l [facility] 2015-02-05 2015-02-06 Outpatient nullFlavo TIRR [id number] [facility] 19:30:00 04:59:00 r [facility] 34 l [facility] 2014-11-06 2014-11-07 Outpatient nullFlavo [facility] [id number] [facility] 19:00:00 04:59:00 r [place] 33 l NÉSTORR [place] 2014-08-07 2014-08-08 Outpatient nullFlavo [facility] [id number] [facility] 16:00:00 05:59:00 r [place] 32 l [facility] [place] 2014-05-09 2014-05-10 Outpatient nullFlavo [facility] [id number] [facility] 19:19:00 05:59:00 r [place] 30 l BRAEDEN Baker 2014-03-07 2014-04-06 OP Therapy nullFlavo SMR [id number] Mem[facility] 12:05:00 04:59:00 Patients r [place] 34 tianna Baker 2014-02-08 2014-03-10 OP Therapy nullFlavo SMR [id number] [facility] 19:00:00 04:59:00 Patients r [place] 33 tianna Baker 2014-02-05 2014-02-06 Outpatient nullFlavo [facility] [id number] [facility] 17:55:00 04:59:00 r [place] 27 l BRAEDEN Baker 2014-01-14 2014-01-15 Outpatient nullFlavo [facility] [id number] [facility] 16:04:00 04:59:00 r [place] 28 tianna Baker 2013-12-18 2013-12-19 Outpatient nullFlavo [facility] [id number] [facility] 19:40:00 04:59:00 r [place] 24 l BRAEDEN Baker 2013-11-08 2013-12-08 Tots nullFlavo [facility] [id number] [facility] 13:00:00 04:59:00 Therapy r [place] 31 l BRAEDEN Baker 2013-07-06 2013-08-05 Tots nullFlavo [facility] [id number] Memoria 14:00:00 05:59:00 Therapy ishaan [place] [id number] l BRAEDEN 9 Samuel 2013-07-10 2013-07-10 Outpatient MHIE IE [id number] [facility] 11:11:00 11:11:00 19 tianna [place] 2013-06-04 2013-06-04 TO IE IE [id number] Memoria 11:09:00 11:09:00 28 tianna [place] 2013-03-27 2013-03-27 Outpatient MHIE MHIE [id number] [facility] 16:11:00 16:11:00 16 tianna [place] 2013-01-10 2013-01-10 Outpatient MHIE MHIE [id number] [facility] 09:16:00 09:16:00 15 tianna [place] 2012-12-19 2012-12-19 Outpatient MHIE IE [id number] [facility] 13:00:00 13:00:00 14 tianna [place] 2012-11-02 2012-12-01 [facility] [id number] [facility] 13:15:00 23:59:00 27 tianna [place] 2012-09-21 2012-10-20 [facility] [id number] [facility] 13:37:00 23:59:00 26 tianna [place] 2012-10-11 2012-10-11 Outpatient IE IE [id number] [facility] 08:00:00 08:00:00 13 tianna Baker 2012-08-24 2012-08-24 [facility] [id number] [facility] 08:00:00 08:00:00 11 tianna Baker 2012-08-22 2012-08-22 [facility] [id number] [facility] 12:58:00 12:58:00 25 tianna Baker 2012-07-18 2012-07-18 [facility] [id number] Mem[facility] 15:13:00 15:13:00 24 tianna Baker 2011-09-28 2011-09-28 [facility] [id number] [facility] 12:11:00 12:11:00 18 tianna Baker 2011-08-27 2011-08-27 [facility] [id number] Mem[facility] 11:18:00 11:18:00 17 tianna Baker 2011-07-27 2011-07-27 [facility] [id number] [facility] 11:10:00 11:10:00 16 tianna Baker 2011-06-24 2011-06-24 [facility] [id number] [facility] 15:00:00 15:00:00 15 tianna Baker Results Test Description Test Time Test Comments Results Result Comments Source ECG 12 lead 2022-09-07 19:31:12 Test Item Value Reference Range Interpretation Comme nts Ventricular rate (test code = 253) 95 Atrial rate (test code = 255) 95 DE interval (test code = 266) 178 QRSD interval (test code = 260) 84 QT interval (test code = 264) 364 QTC interval (test code = 265) 457 P axis 1 (test code = 267) 68 QRS axis 1 (test code = 268) 11 T wave axis (test code = 270) 160 EKG impression (test code = 273) Normal sinus rhythm-ST & T wave ab normality, consider inferolateral ischemia-In automated comparison with ECG of 27-AUG-2022 13:05,-No significant change was found- [facility] [id number] 01:40:00 Test Item Value Reference Range Interpretation Comments Urine culture (test SEE COMMENT Bacteriu mora screen code = 9567654) negative. [facility] ED Preliminary Interpretation - Not an [id number] 23:15:21 Test Item Value Reference Range Interpretation Comments PENNY (test code = PENNY) Matt Jorge MD 09/07/2022 12:57 EC ED Preliminary Interpretation - Not an OrderPerformed by: Matt Jorge MDAuthorized by: Matt Jorge MD ECG reviewed by ED Physician in the absence of a stock control supervisor: yes Previous ECG: Previous ECG: Compared to current Comparison ECG info: August 27, 2022 Similarity: No changeInterpretation: Interpretation: abnormal Rate: ECG rate: 95 ECG rate assessment: normal Rhythm: Rhythm: sinus rhythm Ectopy: Ectopy: none QRS: QRS axis: Normal QRS intervals: NormalConduction: Conduction: normal ST segments: ST segments: Non-specificT waves: T waves: non-specific and inverted Inverted: V4, V5, V6, II and aVFComments: Normal sinus rhythm, nonspecific ST changes T wave inversion lead II, aVF, V4 through V6, no changes compared to previous EKG Lab Interpretation Abnormal (test code = 24558-6) [facility] and B [id number] 19:50:17 Test Item Value Reference Range Interpretation Comments SARS-CoV-2 (COVID-19) RNA Not detected [Presence] in Respiratory specimen by BOBY with probe detection (test code = 88646-2) Whether patient resides in a No congregate care setting (test code = 60403-7) Date and time of symptom onset Unknown (test code = 99311-8) Whether the patient was No hospitalized for condition of interest (test code = 14524-7) Whether the patient was admitted No to intensive care unit (ICU) for condition of interest (test code = 54089-9) Whether patient is employed in a No healthcare setting (test code = 27939-0) Whether the patient has symptoms No related to condition of interest (test code = 31021-0) status (test code = No 85680-5) [facility] RNA [Presence] in Respiratory specimen by BOBY with probe [id number] 03:00:50 Test Item Value Reference Range Interpretation Comments SARS-CoV-2 (COVID-19) RNA Not detected [Presence] in Respiratory specimen by BOBY with probe detection (test code = 93036-9) Whether patient is employed in a Unknown healthcare setting (test code = 63474-3) Whether the patient has symptoms Unknown related to condition of interest (test code = 14843-3) Whether the patient was Unknown hospitalized for condition of interest (test code = 82601-4) Whether the patient was admitted Unknown to intensive care unit (ICU) for condition of interest (test code = 69629-9) Whether patient resides in a Unknown congregate care setting (test code = 56357-7) status (test code = Unknown 76393-3) Date and time of symptom onset Unknown (test code = 51163-3) [facility] [id number] 02:13:00 Test Item Value Reference Range Interpretation Comments Urine culture (test SEE COMMENT Bacteriu mora screen code = 9492351) negative. [facility]2022-10-25 02:13:00 Test Item Value Reference Range Interpretation Comments Urine culture (test SEE COMMENT Bacteriu mora screen code = 7864602) negative. [facility]2022-10-25 02:13:00 Test Item Value Reference Range Interpretation Comments Urine culture (test SEE COMMENT Bacteriu mora screen code = 9063905) negative. [facility]2022-10-25 02:13:00 Test Item Value Reference Range Interpretation Comments Urine culture (test SEE COMMENT Bacteriu mora screen code = 5509809) negative. [facility]2022-10-25 02:13:00 Test Item Value Reference Range Interpretation Comments Urine culture (test SEE COMMENT Bacteriu mora screen code = 8763779) negative. [facility]2022-09-24 18:44:00 Test Item Value Reference Range Interpretation Comments Urine culture (test SEE COMMENT Bacteriu mora screen code = 9054543) negative. [facility]2022-09-24 18:44:00 Test Item Value Reference Range Interpretation Comments Urine culture (test SEE COMMENT Bacteriu mora screen code = 0684752) negative. [facility] [id number] 18:44:00 Test Item Value Reference Range Interpretation Comments Urine culture (test SEE COMMENT Bacteriu mora screen code = 8178894) negative. [facility]ogram Complete, (w Contrast, Strain and 3D if needed)2022-02-25 23:07:02 Test Item Value Reference Interpretation Comments Range EF (test code = 18 % 54-74 A 7015290302) IVS,d (test code = 0.78 cm 0.6-0.9 8616714978) LVPWD,d (test code = 0.79 cm 0.60-1.19 2315357253) LV,s (test code = 4.11 cm 5218304081) LVOT Diam,S (test 1.98 cm code = 5136668915) LV ALONZO VOL (test 90.60 ml 46-106 code = 5873266983) LV SYS VOL (test 74.59 ml 14-42 A code = 5929323828) MV Peak E Kendall (test 0.74 m/s code = 8280308935) MV Peak A Kendall (test 0.19 m/s code = 3873234841) E/A ratio (test code See_Comment A [Autom ated = 5584533370) message] The system which generated this result transmitted reference range : <=0.8. The reference range was not used to interpret this result as normal/abnormal . E wave decelartion See_Comment A [Automat ed time (test code = message] T he 8473586896) system which generated this result transmitted reference range : 200 msec. The reference range was not used to interpret this result as normal/abnormal . LV,d (test code = 4.46 cm 8233196826) IVS/LVPW,2D (test code = 6205016072) LV EF,2D (test code 21.90 % = 0310068577) LV FS Cube 2D (test code = 1642454224) LV FS Teich 2D (test code = 4898830206) LV SV Teich 2D (test 16.01 ml code = 2018588789) LV Vol s Teich PSAX 74.59 ml (test code = 5381528739) LVOT stroke volume 0.31 cm3 (test code = 8697734500) Left Atrium 2.85 cm See_Comment [Automated Dimension Anterior message] The (test code = system which 1981490203) generated this result transmitted reference range : <=3.8. The reference range was not used to interpret this result as normal/abnormal . LA Vol MOD A4C (test 22.26 ml code = 8157328482) LA area s A4C (test 11.14 cm2 code = 9550129481) LVOT area (test code 3.08 cm2 = 9913130847) LVOT Vmax (test code 0.63 m/s = 5563414365) AoV Mean PG (test See_Comment [Automate d code = 9820903989) message] The system which generated this result transmitted reference range : 20 mmHg. The reference range was not used to interpret this result as normal/abnormal . AoV Peak PG (test mmHg code = 2068599834) AV LVOT peak mmHg gradient (test code = 0427994468) AoV Area, Vmax (test 2.79 cm2 See_Comment [Autom ated code = 4741200212) message] The system which generated this result transmitted reference range : >=1.5. The reference range was not used to interpret this result as normal/abnormal . LVOT VTI (CM) (test 10.00 cm code = 2135104428) AoV Vmax (test code 0.68 m/s = 3996910484) AoV Vmn (test code = 0.47 m/s 9924767054) AoV Area, VTI (test 2.62 cm2 code = 4350057650) Velocity Ratio 0.93 m/s (V1/V2) (test code = 4689) MV mean gradient See_Comment [Automated (test code = message] The 5908856228) system which generated this result transmitted reference range : 5 mmHg. The reference range was not used to interpret this result as normal/abnormal . MR peak grad (test mmHg code = 7739345958) MV stenosis pressure 24.92 ms See_Comment [Autom ated 1/2 time (test code message] The = 3884425200) system which generated this result transmitted reference range : <=150. The reference range was not used to interpret this result as normal/abnormal . MV E A ratio (test code = 7007075534) MV valve area p 1/2 8.83 cm2 method (test code = 1995326531) MV VTI Tips (test 0.11 m code = 0762052879) MV Vmax (test code = 0.88 m 1027842506) E prime lat (test code = 3225181584) E milla sept (test code = 5827621775) RVSP (test code = See_Comment [Automate d 9822756073) message] The system which generated this result transmitted reference range : 40.00 mmHg. The reference range was not used to interpret this result as normal/abnormal . RA pressure (test mmHg code = 2448139256) TR pk grad (test mmHg code = 6878436899) TR Vpeak (test code 2.96 m/s = 0491300473) RVSP (TR) (test code mmHg = 1299608812) RVOT Vmax (test code 0.25 m/s = 3807346221) PV Pk Grad (test See_Comment [Automated code = 1661426261) message] The system which generated this result transmitted reference range : 36 mmHg. The reference range was not used to interpret this result as normal/abnormal . RVOT pk grad (test mmHg code = 4145789193) PV VMAX (test code = 0.48 m/s See_Comment [Autom ated 3614115069) message] The system which generated this result transmitted reference range : <=3. The reference range was not used to interpret this result as normal/abnormal . Ao Root Diameter 2.84 cm See_Comment [Automated (test code = message] The 9125674625) system which generated this result transmitted reference range : <=3.99. The reference range was not used to interpret this result as normal/abnormal . Ao Root Diameter 2.84 cm (test code = 4355868597) Ascending aorta 2.79 cm (test code = 3638245414) Pred METS R1 (test code = 8356944111) Pred Exer Dur R1 (test code = 4662154816) MV Decel slope (test 6.64 m/s2 code = 2518433300) LV vol s cube 2D 69.36 ml (test code = 7329363330) LV vol d cube 2D 88.81 ml (test code = 7112840284) LV SV Cube 2D (test 19.45 ml code = 0894015517) Calc MPHR (test code bpm = 1887709794) 85 of MPHR (test code = 7565410142) MAX Pred HR (test code = 4498286225) LVOT mean grad (test mmHg code = 0743616995) Aov area Vmn (test 2.75 cm2 code = 2960861069) MV AE ratio (test code = 6338634274) LVOT Vmn (test code = 1837429681) MR Vmax (test code = 4.09 m/s 8520832489) AoV VTI (test code = 0.12 m 5931609866) LVOT VTI (test code 0.10 m = 3342916312) PENNY (test code = PENNY) Left Ventricle: Left ventricle is mildly dilated. Global hypokinesis present. Severely reduced systolic function with a visually estimated EF of <20%. Grade III (restrictive) diastolic dysfunction Aortic Valve: Valve structure is normal Mitral Valve: Mildly thickened leaflets. Mild to moderate valvular regurgitation Tricuspid Valve: Valve structure is normal. Mild valvular regurgitation Pulmonic Valve: Valve structure is normal Right ventricle size is normal. Normal systolic function Left VentricleLeft ventricle is mildly dilated. Global hypokinesis present. Severely reduced systolic function with a visually estimated EF of <20%. Grade III (restrictive) diastolic dysfunction.Right VentricleRight ventricle size is normal. Normal systolic function.Left AtriumLeft atrium size is normal.Right AtriumRight atrium size is normal.Mitral ValveMildly thickened leaflets. Mild to moderate valvular regurgitation.Tricus pid ValveValve structure is normal. Mild valvular regurgitation.Aortic ValveValve structure is normal. No significant valvular regurgitation. No stenosis.Pulmonic ValveValve structure is normal. No significant valvular regurgitation.Perica rdiumThere is no pericardial effusion present.Study DetailsStudy quality was fair. A complete 2D, color flow Doppler and spectral Doppler echocardiogram was performed.The apical, parasternal, subcostal and suprasternal views were obtained. Lab Interpretation Abnormal (test code = 06801-9) [facility] Complete, (w Contrast, Strain and 3D if needed)2022-02-25 23:07:02 Test Item Value Reference Interpretation Comments Range EF (test code = 18 % 54-74 A 4922153827) IVS,d (test code = 0.78 cm 0.6-0.9 0609465357) LVPWD,d (test code = 0.79 cm 0.60-1.19 1318833650) LV,s (test code = 4.11 cm 5025406833) LVOT Diam,S (test 1.98 cm code = 7727414023) LV ALONZO VOL (test 90.60 ml 46-106 code = 2642137445) LV SYS VOL (test 74.59 ml 14-42 A code = 9066706714) MV Peak E Kendall (test 0.74 m/s code = 9995752958) MV Peak A Kendall (test 0.19 m/s code = 0070948908) E/A ratio (test code 3.89 See_Comment A [Autom ated = 5300441677) message] The system which generated this result transmitted reference range : <=0.8. The reference range was not used to interpret this result as normal/abnormal . E wave decelartion 111.65 See_Comment A [Automat ed time (test code = message] T he 3063362349) system which generated this result transmitted reference range : 200 msec. The reference range was not used to interpret this result as normal/abnormal . LV,d (test code = 4.46 cm 5319774980) IVS/LVPW,2D (test 0.99 code = 9399508246) LV EF,2D (test code 21.90 % = 9099481243) LV FS Cube 2D (test 7.91 code = 7923242059) LV FS Teich 2D (test 7.91 code = 9219718330) LV SV Teich 2D (test 16.01 ml code = 7742810784) LV Vol s Teich PSAX 74.59 ml (test code = 6724970082) LVOT stroke volume 0.31 cm3 (test code = 9548155524) Left Atrium 2.85 cm See_Comment [Automated Dimension Anterior message] The (test code = system which 3477092681) generated this result transmitted reference range : <=3.8. The reference range was not used to interpret this result as normal/abnormal . LA Vol MOD A4C (test 22.26 ml code = 9884597894) LA area s A4C (test 11.14 cm2 code = 6843262551) LVOT area (test code 3.08 cm2 = 4856949398) LVOT Vmax (test code 0.63 m/s = 2022254308) AoV Mean PG (test 1.00 See_Comment [Automate d code = 6239601657) message] The system which generated this result transmitted reference range : 20 mmHg. The reference range was not used to interpret this result as normal/abnormal . AoV Peak PG (test 1.75 mmHg code = 6971749670) AV LVOT peak 1.43 mmHg gradient (test code = 5104858800) AoV Area, Vmax (test 2.79 cm2 See_Comment [Autom ated code = 5301967835) message] The system which generated this result transmitted reference range : >=1.5. The reference range was not used to interpret this result as normal/abnormal . LVOT VTI (CM) (test 10.00 cm code = 9275545625) AoV Vmax (test code 0.68 m/s = 2054220497) AoV Vmn (test code = 0.47 m/s 1411029778) AoV Area, VTI (test 2.62 cm2 code = 5924368724) Velocity Ratio 0.93 m/s (V1/V2) (test code = 4689) MV mean gradient 1.67 See_Comment [Automated (test code = message] The [id number]) system which generated this result transmitted reference range : 5 mmHg. The reference range was not used to interpret this result as normal/abnormal . MR peak grad (test 2.75 mmHg code = 9642216194) MV stenosis pressure 24.92 ms See_Comment [Autom ated 1/2 time (test code message] The = [id number]) system which generated this result transmitted reference range : <=150. The reference range was not used to interpret this result as normal/abnormal . MV E A ratio (test 3.35 code = 5422510010) MV valve area p 1/2 8.83 cm2 method (test code = 7657838643) MV VTI Tips (test 0.11 m code = 8847210631) MV Vmax (test code = 0.88 m 6271225999) E prime lat (test 0.07 code = 8518171676) E prime sept (test 0.06 code = 8735415445) RVSP (test code = 39.20 See_Comment [Automate d [id number]) message] The system which generated this result transmitted reference range : 40.00 mmHg. The reference range was not used to interpret this result as normal/abnormal . RA pressure (test 10.00 mmHg code = 4881891556) TR pk grad (test 29.20 mmHg code = 1294611960) TR Vpeak (test code 2.96 m/s = 3078953612) RVSP (TR) (test code 39.20 mmHg = 2188275288) RVOT Vmax (test code 0.25 m/s = 4026757004) PV Pk Grad (test 0.92 See_Comment [Automated code = 8158851910) message] The system which generated this result transmitted reference range : 36 mmHg. The reference range was not used to interpret this result as normal/abnormal . RVOT pk grad (test 0.25 mmHg code = 4288753435) PV VMAX (test code = 0.48 m/s See_Comment [Autom ated 3490093512) message] The system which generated this result transmitted reference range : <=3. The reference range was not used to interpret this result as normal/abnormal . Ao Root Diameter 2.84 cm See_Comment [Automated (test code = message] The [id number]) system which generated this result transmitted reference range : <=3.99. The reference range was not used to interpret this result as normal/abnormal . Ao Root Diameter 2.84 cm (test code = 3763971895) Ascending aorta 2.79 cm (test code = 8815722989) Pred METS R1 (test 4.63 code = 3529730867) Pred Exer Dur R1 6.02 (test code = 1321821226) MV Decel slope (test 6.64 m/s2 code = 8016925735) LV vol s cube 2D 69.36 ml (test code = 7427943484) LV vol d cube 2D 88.81 ml (test code = 8602831535) LV SV Cube 2D (test 19.45 ml code = 2188672469) Calc MPHR (test code 142.53 bpm = 8262167404) 85 of MPHR (test 121.15 code = 8031356533) MAX Pred HR (test 142.53 code = 2818326964) LVOT mean grad (test 0.76 mmHg code = 1146493514) Aov area Vmn (test 2.75 cm2 code = 2559719832) MV AE ratio (test 0.30 code = 1333768971) LVOT Vmn (test code 0.41 = 7018431617) MR Vmax (test code = 4.09 m/s 7172724879) AoV VTI (test code = 0.12 m 3377426357) LVOT VTI (test code 0.10 m = 3230412068) PENNY (test code = PENNY) Left Ventricle: Left ventricle is mildly dilated. Global hypokinesis present. Severely reduced systolic function with a visually estimated EF of <20%. Grade III (restrictive) diastolic dysfunction Aortic Valve: Valve structure is normal Mitral Valve: Mildly thickened leaflets. Mild to moderate valvular regurgitation Tricuspid Valve: Valve structure is normal. Mild valvular regurgitation Pulmonic Valve: Valve structure is normal Right ventricle size is normal. Normal systolic function Left VentricleLeft ventricle is mildly dilated. Global hypokinesis present. Severely reduced systolic function with a visually estimated EF of <20%. Grade III (restrictive) diastolic dysfunction.Right VentricleRight ventricle size is normal. Normal systolic function.Left AtriumLeft atrium size is normal.Right AtriumRight atrium size is normal.Mitral ValveMildly thickened leaflets. Mild to moderate valvular regurgitation.Tricus pid ValveValve structure is normal. Mild valvular regurgitation.Aortic ValveValve structure is normal. No significant valvular regurgitation. No stenosis.Pulmonic ValveValve structure is normal. No significant valvular regurgitation.Perica rdiumThere is no pericardial effusion present.Study DetailsStudy quality was fair. A complete 2D, color flow Doppler and spectral Doppler echocardiogram was performed.The apical, parasternal, subcostal and suprasternal views were obtained. Lab Interpretation Abnormal (test code = 09343-3) [facility] 12 [id number] 17:48:24 Test Item Value Reference Range Interpretation Comments Ventricular rate (test code = 253) Atrial rate (test code = 255) DE interval (test code = 266) QRSD interval (test code = 260) QT interval (test code = 264) QTC interval (test code = 265) P axis 1 (test code = 267) QRS axis 1 (test code = 268) T wave axis (test code = 270) EKG impression (test Sinus code = 273) tachycardia-Possible Left atrial enlargement-T wave abnormality, consider lateral ischemia-Abnormal ECG-In automated comparison with ECG of 08-OCT-2019 12:21,-Vent. rate has increased BY 40 BPM-Inverted T waves have replaced nonspecific T wave abnormality in Lateral leads-QT has lengthened-Electronica lly Signed By Joao Daley MD ([id number]) on 02/25/2022 12:48:21 PM [address]2022-09-22 17:48:24 Test Item Value Reference Range Interpretation Comments Ventricular rate (test code = 253) Atrial rate (test code = 255) DE interval (test code = 266) QRSD interval (test code = 260) QT interval (test code = 264) QTC interval (test code = 265) P axis 1 (test code = 267) QRS axis 1 (test code = 268) T wave axis (test code = 270) EKG impression (test Sinus code = 273) tachycardia-Possible Left atrial enlargement-T wave abnormality, consider lateral ischemia-Abnormal ECG-In automated comparison with ECG of 08-OCT-2019 12:21,-Vent. rate has increased BY 40 BPM-Inverted T waves have replaced nonspecific T wave abnormality in Lateral leads-QT has lengthened-Electronica lly Signed By Joao Daley MD ([id number]) on 02/25/2022 12:48:21 PM [address]2022-09-22 17:48:24 Test Item Value Reference Range Interpretation Comments Ventricular rate (test code = 253) Atrial rate (test code = 255) DE interval (test code = 266) QRSD interval (test code = 260) QT interval (test code = 264) QTC interval (test code = 265) P axis 1 (test code = 267) QRS axis 1 (test code = 268) T wave axis (test code = 270) EKG impression (test Sinus code = 273) tachycardia-Possible Left atrial enlargement-T wave abnormality, consider lateral ischemia-Abnormal ECG-In automated comparison with ECG of 08-OCT-2019 12:21,-Vent. rate has increased BY 40 BPM-Inverted T waves have replaced nonspecific T wave abnormality in Lateral leads-QT has lengthened-Electronica lly Signed By Joao Daley MD ([id number]) on 02/25/2022 12:48:21 PM [address]2022-09-22 17:48:24 Test Item Value Reference Range Interpretation Comments Ventricular rate (test code = 253) Atrial rate (test code = 255) DE interval (test code = 266) QRSD interval (test code = 260) QT interval (test code = 264) QTC interval (test code = 265) P axis 1 (test code = 267) QRS axis 1 (test code = 268) T wave axis (test code = 270) EKG impression (test Sinus code = 273) tachycardia-Possible Left atrial enlargement-T wave abnormality, consider lateral ischemia-Abnormal ECG-In automated comparison with ECG of 08-OCT-2019 12:21,-Vent. rate has increased BY 40 BPM-Inverted T waves have replaced nonspecific T wave abnormality in Lateral leads-QT has lengthened-Electronica lly Signed By Joao Daley MD ([id number]) on 02/25/2022 12:48:[address]2022-09-22 17:48:24 Test Item Value Reference Range Interpretation Comments Ventricular rate (test code = 253) Atrial rate (test code = 255) DE interval (test code = 266) QRSD interval (test code = 260) QT interval (test code = 264) QTC interval (test code = 265) P axis 1 (test code = 267) QRS axis 1 (test code = 268) T wave axis (test code = 270) EKG impression (test Sinus code = 273) tachycardia-Possible Left atrial enlargement-T wave abnormality, consider lateral ischemia-Abnormal ECG-In automated comparison with ECG of 08-OCT-2019 12:21,-Vent. rate has increased BY 40 BPM-Inverted T waves have replaced nonspecific T wave abnormality in Lateral leads-QT has lengthened-Electronica lly Signed By Joao Daley MD ([id number]) on 02/25/2022 12:48:21 [address]2022-09-22 17:48:24 Test Item Value Reference Range Interpretation Comments Ventricular rate (test code = 253) Atrial rate (test code = 255) DE interval (test code = 266) QRSD interval (test code = 260) QT interval (test code = 264) QTC interval (test code = 265) P axis 1 (test code = 267) QRS axis 1 (test code = 268) T wave axis (test code = 270) EKG impression (test Sinus code = 273) tachycardia-Possible Left atrial enlargement-T wave abnormality, consider lateral ischemia-Abnormal ECG-In automated comparison with ECG of 08-OCT-2019 12:21,-Vent. rate has increased BY 40 BPM-Inverted T waves have replaced nonspecific T wave abnormality in Lateral leads-QT has lengthened-Electronica lly Signed By Joao Daley MD ([id number]) on 02/25/2022 12:48:21 [address]2022-09-22 17:48:24 Test Item Value Reference Range Interpretation Comments Ventricular rate (test code = 253) Atrial rate (test code = 255) DE interval (test code = 266) QRSD interval (test code = 260) QT interval (test code = 264) QTC interval (test code = 265) P axis 1 (test code = 267) QRS axis 1 (test code = 268) T wave axis (test code = 270) EKG impression (test Sinus code = 273) tachycardia-Possible Left atrial enlargement-T wave abnormality, consider lateral ischemia-Abnormal ECG-In automated comparison with ECG of 08-OCT-2019 12:21,-Vent. rate has increased BY 40 BPM-Inverted T waves have replaced nonspecific T wave abnormality in Lateral leads-QT has lengthened-Electronica lly Signed By Joao Daley MD ([id number]) on 02/25/2022 12:48:21 [address]2022-09-22 17:48:24 Test Item Value Reference Range Interpretation Comments Ventricular rate (test code = 253) Atrial rate (test code = 255) DE interval (test code = 266) QRSD interval (test code = 260) QT interval (test code = 264) QTC interval (test code = 265) P axis 1 (test code = 267) QRS axis 1 (test code = 268) T wave axis (test code = 270) EKG impression (test Sinus code = 273) tachycardia-Possible Left atrial enlargement-T wave abnormality, consider lateral ischemia-Abnormal ECG-In automated comparison with ECG of 08-OCT-2019 12:21,-Vent. rate has increased BY 40 BPM-Inverted T waves have replaced nonspecific T wave abnormality in Lateral leads-QT has lengthened-Electronica lly Signed By Joao Daley MD ([id number]) on 02/25/2022 12:48:21 [facility] [Presence] in Respiratory specimen by BOBY with probe [id number] 06:49:34 Test Item Value Reference Range Interpretation Comments SARS-CoV-2 (COVID-19) RNA Not detected [Presence] in Respiratory specimen by BOBY with probe detection (test code = 16003-5) Whether patient is employed in a No healthcare setting (test code = 90742-3) Whether the patient has symptoms Yes related to condition of interest (test code = 64756-5) Whether the patient was No hospitalized for condition of interest (test code = 52876-8) Whether the patient was admitted No to intensive care unit (ICU) for condition of interest (test code = 39111-6) Whether patient resides in a No congregate care setting (test code = 55124-3) status (test code = No 77812-2) Date and time of symptom onset Unknown (test code = 90051-1) [facility] TO 1 HOUR 2021-08-25 15:55:00Reason for exam:->Trigeminal Neuralgia [facility] CENTERName: ASHLIE HUERTAS : 1945 Sex: FAn imaging unit was utilized for this procedure. No radiologist interpretation was requested. Refer to the EMR for findings. Refer to PACS for any patient radiation dose information.SARS-CoV2/RT-PCR (Asymptomatic ONLY)2021-08-20 18:55:08 Test Item Value Reference Range Interpretation Comments SARS-COV2/RT-PCR Negative Not Detected, (test code = Negative, See 19211-1) external report for linked test SARS-COV-2 [facility] (test code = 57830-6) PENNY (test code = Negative result for this PENNY) test determines that SARS-CoV-2 RNA was not present in the specimen above the Limit of Detection (LOD). However, Negative results do not preclude SARS-CoV-2 infection and should not be used as the sole basis for treatment or patient management decisions. Negative results must be combined with clinical observations, patient history, and epidemiological information. A false negative result may occur if a specimen is improperly collected, transported or handled. A false negative result should be considered if patient's recent exposures or clinical presentation indicate that COVID-19 (SARS-CoV-2) is likely and diagnostic tests for other causes of illness are negative. Re-testing should be considered in cases of suspected false negatives. The limit of detection for this assay is 800 copies/mL. This SARS CoV-2 test is a real-time RT-PCR test intended for the qualitative detection of nucleic acid from SARS-CoV-2 in a nasopharyngeal swab specimen collected from individuals suspected of COVID-19 by their healthcare provider. This test has not been Food and Drug Administration (FDA) cleared or approved. This is a modified version of an approved Emergency Use Authorization (EUA) and is in the process of review by the FDA. Once authorized by the FDA, the issued EUA will be effective until the declaration that circumstances exist justifying the authorization of the emergency use of in vitro diagnostic tests for detection and/or diagnosis of COVID-19 is terminated under Section 564(b)(2) of the Act or the EUA is revoked under Section 564(g) of the Act. Fact Sheet for Healthcare Providers:https://www.[employer]/sites/default/f lilly/product/documents/F act_Sheet_HC_Providers_L wsc_BBHR-PgA-8.pdf Fact Sheet for Healthcare Patients:https://www.[employer]/sites/default/fi les/product/documents/Fa ct_Sheet_Patients_Lyra_S ARS-CoV-2.pdf Performing Laboratory:[facility] [place] [address] [facility] (Asymptomatic ONLY)2021-08-20 18:55:08 Test Item Value Reference Range Interpretation Comments SARS-COV2/RT-PCR Negative Not Detected, (test code = Negative, See 13107-2) external report for linked test SARS-COV-2 [facility] PER[facility] (test code = 57773-2) PENNY (test code = Negative result for this PENNY) test determines that SARS-CoV-2 RNA was not present in the specimen above the Limit of Detection (LOD). However, Negative results do not preclude SARS-CoV-2 infection and should not be used as the sole basis for treatment or patient management decisions. Negative results must be combined with clinical observations, patient history, and epidemiological information. A false negative result may occur if a specimen is improperly collected, transported or handled. A false negative result should be considered if patient's recent exposures or clinical presentation indicate that COVID-19 (SARS-CoV-2) is likely and diagnostic tests for other causes of illness are negative. Re-testing should be considered in cases of suspected false negatives. The limit of detection for this assay is 800 copies/mL. This SARS CoV-2 test is a real-time RT-PCR test intended for the qualitative detection of nucleic acid from SARS-CoV-2 in a nasopharyngeal swab specimen collected from individuals suspected of COVID-19 by their healthcare provider. This test has not been Food and Drug Administration (FDA) cleared or approved. This is a modified version of an approved Emergency Use Authorization (EUA) and is in the process of review by the FDA. Once authorized by the FDA, the issued EUA will be effective until the declaration that circumstances exist justifying the authorization of the emergency use of in vitro diagnostic tests for detection and/or diagnosis of COVID-19 is terminated under Section 564(b)(2) of the Act or the EUA is revoked under Section 564(g) of the Act. Fact Sheet for Healthcare Providers:https://www.[employer]/sites/default/f lilly/product/documents/F act_Sheet_HC_Providers_L hft_LDEQ-UsG-4.pdf Fact Sheet for Healthcare Patients:https://www.[employer]/sites/default/fi les/product/documents/Fa ct_Sheet_Patients_Ly_S ARS-CoV-2.pdf Performing Laboratory:[facility] [place] [address] [facility]2021-08-20 18:55:08 Test Item Value Reference Range Interpretation Comments SARS-COV2/RT-PCR Negative Not Detected, (test code = Negative, See 69951-0) external report for linked test SARS-COV-2 [facility] (test code = 67726-1) PENNY (test code = Negative result for this PENNY) test determines that SARS-CoV-2 RNA was not present in the specimen above the Limit of Detection (LOD). However, Negative results do not preclude SARS-CoV-2 infection and should not be used as the sole basis for treatment or patient management decisions. Negative results must be combined with clinical observations, patient history, and epidemiological information. A false negative result may occur if a specimen is improperly collected, transported or handled. A false negative result should be considered if patient's recent exposures or clinical presentation indicate that COVID-19 (SARS-CoV-2) is likely and diagnostic tests for other causes of illness are negative. Re-testing should be considered in cases of suspected false negatives. The limit of detection for this assay is 800 copies/mL. This SARS CoV-2 test is a real-time RT-PCR test intended for the qualitative detection of nucleic acid from SARS-CoV-2 in a nasopharyngeal swab specimen collected from individuals suspected of COVID-19 by their healthcare provider. This test has not been Food and Drug Administration (FDA) cleared or approved. This is a modified version of an approved Emergency Use Authorization (EUA) and is in the process of review by the FDA. Once authorized by the FDA, the issued EUA will be effective until the declaration that circumstances exist justifying the authorization of the emergency use of in vitro diagnostic tests for detection and/or diagnosis of COVID-19 is terminated under Section 564(b)(2) of the Act or the EUA is revoked under Section 564(g) of the Act. Fact Sheet for Healthcare Providers:https://www.[employer]/sites/default/f lilly/product/documents/F act_Sheet_HC_Providers_L obd_OGXR-YpR-3.pdf Fact Sheet for Healthcare Patients:https://www.[employer]/sites/default/fi les/product/documents/Fa ct_Sheet_Patients_Sana_S ARS-CoV-2.pdf Performing Laboratory:[facility] [place] [address] [facility]2021-08-20 18:55:08 Test Item Value Reference Range Interpretation Comments SARS-COV2/RT-PCR Negative Not Detected, (test code = Negative, See 57228-3) external report for linked test SARS-COV-2 [facility] (test code = 86811-6) PENNY (test code = Negative result for this PENNY) test determines that SARS-CoV-2 RNA was not present in the specimen above the Limit of Detection (LOD). However, Negative results do not preclude SARS-CoV-2 infection and should not be used as the sole basis for treatment or patient management decisions. Negative results must be combined with clinical observations, patient history, and epidemiological information. A false negative result may occur if a specimen is improperly collected, transported or handled. A false negative result should be considered if patient's recent exposures or clinical presentation indicate that COVID-19 (SARS-CoV-2) is likely and diagnostic tests for other causes of illness are negative. Re-testing should be considered in cases of suspected false negatives. The limit of detection for this assay is 800 copies/mL. This SARS CoV-2 test is a real-time RT-PCR test intended for the qualitative detection of nucleic acid from SARS-CoV-2 in a nasopharyngeal swab specimen collected from individuals suspected of COVID-19 by their healthcare provider. This test has not been Food and Drug Administration (FDA) cleared or approved. This is a modified version of an approved Emergency Use Authorization (EUA) and is in the process of review by the FDA. Once authorized by the FDA, the issued EUA will be effective until the declaration that circumstances exist justifying the authorization of the emergency use of in vitro diagnostic tests for detection and/or diagnosis of COVID-19 is terminated under Section 564(b)(2) of the Act or the EUA is revoked under Section 564(g) of the Act. Fact Sheet for Healthcare Providers:https://www.[employer]/sites/default/f lilly/product/documents/F act_Sheet_HC_Providers_L sye_ONYO-FrK-6.pdf Fact Sheet for Healthcare Patients:https://www.[employer]/sites/default/fi les/product/documents/Fa ct_Sheet_Patients_Lyra_S ARS-CoV-2.pdf Performing Laboratory:[facility] [place] [address] [facility])2021-08-20 18:55:08 Test Item Value Reference Range Interpretation Comments SARS-COV2/RT-PCR Negative Not Detected, (test code = Negative, See 70598-5) external report for linked test SARS-COV-2 [facility] (test code = 97437-3) PENNY (test code = Negative result for this PENNY) test determines that SARS-CoV-2 RNA was not present in the specimen above the Limit of Detection (LOD). However, Negative results do not preclude SARS-CoV-2 infection and should not be used as the sole basis for treatment or patient management decisions. Negative results must be combined with clinical observations, patient history, and epidemiological information. A false negative result may occur if a specimen is improperly collected, transported or handled. A false negative result should be considered if patient's recent exposures or clinical presentation indicate that COVID-19 (SARS-CoV-2) is likely and diagnostic tests for other causes of illness are negative. Re-testing should be considered in cases of suspected false negatives. The limit of detection for this assay is 800 copies/mL. This SARS CoV-2 test is a real-time RT-PCR test intended for the qualitative detection of nucleic acid from SARS-CoV-2 in a nasopharyngeal swab specimen collected from individuals suspected of COVID-19 by their healthcare provider. This test has not been Food and Drug Administration (FDA) cleared or approved. This is a modified version of an approved Emergency Use Authorization (EUA) and is in the process of review by the FDA. Once authorized by the FDA, the issued EUA will be effective until the declaration that circumstances exist justifying the authorization of the emergency use of in vitro diagnostic tests for detection and/or diagnosis of COVID-19 is terminated under Section 564(b)(2) of the Act or the EUA is revoked under Section 564(g) of the Act. Fact Sheet for Healthcare Providers:https://www.[employer]/sites/default/f lilly/product/documents/F act_Sheet_HC_Providers_L sma_GDJG-WwZ-0.pdf Fact Sheet for Healthcare Patients:https://www.[employer]/sites/default/fi les/product/documents/Fa ct_Sheet_Patients_Lyra_S ARS-CoV-2.pdf Performing Laboratory:[facility] [place] [address] [facility])2021-08-20 18:55:08 Test Item Value Reference Range Interpretation Comments SARS-COV2/RT-PCR Negative Not Detected, (test code = Negative, See 05826-5) external report for linked test SARS-COV-2 [facility] (test code = 72060-4) PENNY (test code = Negative result for this PENNY) test determines that SARS-CoV-2 RNA was not present in the specimen above the Limit of Detection (LOD). However, Negative results do not preclude SARS-CoV-2 infection and should not be used as the sole basis for treatment or patient management decisions. Negative results must be combined with clinical observations, patient history, and epidemiological information. A false negative result may occur if a specimen is improperly collected, transported or handled. A false negative result should be considered if patient's recent exposures or clinical presentation indicate that COVID-19 (SARS-CoV-2) is likely and diagnostic tests for other causes of illness are negative. Re-testing should be considered in cases of suspected false negatives. The limit of detection for this assay is 800 copies/mL. This SARS CoV-2 test is a real-time RT-PCR test intended for the qualitative detection of nucleic acid from SARS-CoV-2 in a nasopharyngeal swab specimen collected from individuals suspected of COVID-19 by their healthcare provider. This test has not been Food and Drug Administration (FDA) cleared or approved. This is a modified version of an approved Emergency Use Authorization (EUA) and is in the process of review by the FDA. Once authorized by the FDA, the issued EUA will be effective until the declaration that circumstances exist justifying the authorization of the emergency use of in vitro diagnostic tests for detection and/or diagnosis of COVID-19 is terminated under Section 564(b)(2) of the Act or the EUA is revoked under Section 564(g) of the Act. Fact Sheet for Healthcare Providers:https://www.[employer]/sites/default/f lilly/product/documents/F act_Sheet_HC_Providers_L tlk_UFCZ-UbG-7.pdf Fact Sheet for Healthcare Patients:https://www.[employer]/sites/default/fi les/product/documents/Fa ct_Sheet_Patients_Lyra_S ARS-CoV-2.pdf Performing Laboratory:[facility] [place] [address] [facility]2021-08-20 18:55:08 Test Item Value Reference Range Interpretation Comments SARS-COV2/RT-PCR Negative Not Detected, (test code = Negative, See 11946-5) external report for linked test SARS-COV-2 [facility] PERFORM[facility] (test code = 28277-0) PENNY (test code = Negative result for this PENNY) test determines that SARS-CoV-2 RNA was not present in the specimen above the Limit of Detection (LOD). However, Negative results do not preclude SARS-CoV-2 infection and should not be used as the sole basis for treatment or patient management decisions. Negative results must be combined with clinical observations, patient history, and epidemiological information. A false negative result may occur if a specimen is improperly collected, transported or handled. A false negative result should be considered if patient's recent exposures or clinical presentation indicate that COVID-19 (SARS-CoV-2) is likely and diagnostic tests for other causes of illness are negative. Re-testing should be considered in cases of suspected false negatives. The limit of detection for this assay is 800 copies/mL. This SARS CoV-2 test is a real-time RT-PCR test intended for the qualitative detection of nucleic acid from SARS-CoV-2 in a nasopharyngeal swab specimen collected from individuals suspected of COVID-19 by their healthcare provider. This test has not been Food and Drug Administration (FDA) cleared or approved. This is a modified version of an approved Emergency Use Authorization (EUA) and is in the process of review by the FDA. Once authorized by the FDA, the issued EUA will be effective until the declaration that circumstances exist justifying the authorization of the emergency use of in vitro diagnostic tests for detection and/or diagnosis of COVID-19 is terminated under Section 564(b)(2) of the Act or the EUA is revoked under Section 564(g) of the Act. Fact Sheet for Healthcare Providers:https://www.[employer]/sites/default/f lilly/product/documents/F act_Sheet_HC_Providers_L gpq_PAKN-ZuQ-0.pdf Fact Sheet for Healthcare Patients:https://www.[employer]/sites/default/fi les/product/documents/Fa ct_Sheet_Patients_Lyra_S ARS-CoV-2.pdf Performing Laboratory:[facility] [facility], [place] [address] [place], [place] [address]ARS-CoV2/RT-PCR (Asymptomatic ONLY)2021-08-20 18:55:08 Test Item Value Reference Range Interpretation Comments SARS-COV2/RT-PCR Negative Not Detected, (test code = Negative, See 32958-6) external report for linked test SARS-COV-2 [facility] (test code = 65839-0) PENNY (test code = Negative result for this PENNY) test determines that SARS-CoV-2 RNA was not present in the specimen above the Limit of Detection (LOD). However, Negative results do not preclude SARS-CoV-2 infection and should not be used as the sole basis for treatment or patient management decisions. Negative results must be combined with clinical observations, patient history, and epidemiological information. A false negative result may occur if a specimen is improperly collected, transported or handled. A false negative result should be considered if patient's recent exposures or clinical presentation indicate that COVID-19 (SARS-CoV-2) is likely and diagnostic tests for other causes of illness are negative. Re-testing should be considered in cases of suspected false negatives. The limit of detection for this assay is 800 copies/mL. This SARS CoV-2 test is a real-time RT-PCR test intended for the qualitative detection of nucleic acid from SARS-CoV-2 in a nasopharyngeal swab specimen collected from individuals suspected of COVID-19 by their healthcare provider. This test has not been Food and Drug Administration (FDA) cleared or approved. This is a modified version of an approved Emergency Use Authorization (EUA) and is in the process of review by the FDA. Once authorized by the FDA, the issued EUA will be effective until the declaration that circumstances exist justifying the authorization of the emergency use of in vitro diagnostic tests for detection and/or diagnosis of COVID-19 is terminated under Section 564(b)(2) of the Act or the EUA is revoked under Section 564(g) of the Act. Fact Sheet for Healthcare Providers:https://www.[employer]/sites/default/f lilly/product/documents/F act_Sheet_HC_Providers_L pci_LSDQ-BzD-4.pdf Fact Sheet for Healthcare Patients:https://www.[employer]/sites/default/fi les/product/documents/Fa ct_Sheet_Patients_Lyra_S ARS-CoV-2.pdf Performing Laboratory:[facility]/RT-PCR (Asymptomatic ONLY)2021-08-20 18:55:08 Test Item Value Reference Range Interpretation Comments SARS-COV2/RT-PCR Negative Not Detected, (test code = Negative, See 08770-2) external report for linked test SARS-COV-2 [facility] (test code = 90183-3) PENNY (test code = Negative result for this PENNY) test determines that SARS-CoV-2 RNA was not present in the specimen above the Limit of Detection (LOD). However, Negative results do not preclude SARS-CoV-2 infection and should not be used as the sole basis for treatment or patient management decisions. Negative results must be combined with clinical observations, patient history, and epidemiological information. A false negative result may occur if a specimen is improperly collected, transported or handled. A false negative result should be considered if patient's recent exposures or clinical presentation indicate that COVID-19 (SARS-CoV-2) is likely and diagnostic tests for other causes of illness are negative. Re-testing should be considered in cases of suspected false negatives. The limit of detection for this assay is 800 copies/mL. This SARS CoV-2 test is a real-time RT-PCR test intended for the qualitative detection of nucleic acid from SARS-CoV-2 in a nasopharyngeal swab specimen collected from individuals suspected of COVID-19 by their healthcare provider. This test has not been Food and Drug Administration (FDA) cleared or approved. This is a modified version of an approved Emergency Use Authorization (EUA) and is in the process of review by the FDA. Once authorized by the FDA, the issued EUA will be effective until the declaration that circumstances exist justifying the authorization of the emergency use of in vitro diagnostic tests for detection and/or diagnosis of COVID-19 is terminated under Section 564(b)(2) of the Act or the EUA is revoked under Section 564(g) of the Act. Fact Sheet for Healthcare Providers:https://www.[employer]/sites/default/f lilly/product/documents/F act_Sheet_HC_Providers_L sbf_EWZF-KlD-1.pdf Fact Sheet for Healthcare Patients:https://www.[employer]/sites/default/fi les/product/documents/Fa ct_Sheet_Patients_Lyra_S ARS-CoV-2.pdf Performing Laboratory:[facility] [place] [address] [facility]2021-08-20 18:55:08 Test Item Value Reference Range Interpretation Comments SARS-COV2/RT-PCR Negative Not Detected, (test code = Negative, See 66309-1) external report for linked test SARS-COV-2 [facility] (test code = 43186-6) PENNY (test code = Negative result for this PENNY) test determines that SARS-CoV-2 RNA was not present in the specimen above the Limit of Detection (LOD). However, Negative results do not preclude SARS-CoV-2 infection and should not be used as the sole basis for treatment or patient management decisions. Negative results must be combined with clinical observations, patient history, and epidemiological information. A false negative result may occur if a specimen is improperly collected, transported or handled. A false negative result should be considered if patient's recent exposures or clinical presentation indicate that COVID-19 (SARS-CoV-2) is likely and diagnostic tests for other causes of illness are negative. Re-testing should be considered in cases of suspected false negatives. The limit of detection for this assay is 800 copies/mL. This SARS CoV-2 test is a real-time RT-PCR test intended for the qualitative detection of nucleic acid from SARS-CoV-2 in a nasopharyngeal swab specimen collected from individuals suspected of COVID-19 by their healthcare provider. This test has not been Food and Drug Administration (FDA) cleared or approved. This is a modified version of an approved Emergency Use Authorization (EUA) and is in the process of review by the FDA. Once authorized by the FDA, the issued EUA will be effective until the declaration that circumstances exist justifying the authorization of the emergency use of in vitro diagnostic tests for detection and/or diagnosis of COVID-19 is terminated under Section 564(b)(2) of the Act or the EUA is revoked under Section 564(g) of the Act. Fact Sheet for Healthcare Providers:https://www.[employer]/sites/default/f lilly/product/documents/F act_Sheet_HC_Providers_L koi_WDPS-QmP-8.pdf Fact Sheet for Healthcare Patients:https://www.[employer]/sites/default/fi les/product/documents/Fa ct_Sheet_Patients_Lyra_S ARS-CoV-2.pdf Performing Laboratory:[facility] [place] [address] [facility]2021-08-20 18:55:08 Test Item Value Reference Range Interpretation Comments SARS-COV2/RT-PCR (test Negative Not Detected, Negative, code = 8522049) See external report for linked test SARS-COV-[address] [facility] (test code = 4622045) Negative result for this test determines that SARS-CoV-2 RNA was not present in the specimen above the Limit of Detection (LOD). However, Negative results do not preclude SARS-CoV-2 infection and should not be used as the sole basis for treatment or patient management decisions. Negative results must be combined with clinical observations, patient history, and epidemiological information. A false negative result may occur if a specimen is improperly collected, transported or handled. A false negative result should be considered if patient's recent exposures or clinical presentation indicate that COVID-19 (SARS-CoV-2) is likely and diagnostic tests for other causes of illness are negative. Re-testing should be considered in cases of suspected false negatives.The limit of detection for this assay is 800 copies/mL.This SARS CoV-2 test is a real-time RT-PCR test intended for the qualitative detection of nucleic acid from SARS-CoV-2 in a nasopharyngeal swab specimen collected from individuals suspected of COVID-19 by their healthcare provider.This test has not been Food and Drug Administration (FDA) cleared or approved. This is a modified version of an approved Emergency Use Authorization (EUA) and is in the process of review by the FDA. Once authorized by the FDA, the issued EUA will be effective until the declaration that circumstances exist justifying the authorization of the emergency use ofin vitro diagnostic tests for detection and/or diagnosis of COVID-19 is terminated under Section 564(b)(2) of the Act or the EUA is revoked under Section 564(g) of the Act.Fact Sheet for Healthcare Prov iders:https://www.[facility].[employer]/sites/default/files/product/documents/Fact_Sheet_HC _Vgthjstmf_Jfbk_CHYR-LzX-4.pdfFact Sheet for Healthcare Patients:https://www.[employer]/sites/default/files/product/docume nts/Aupr_Axhxi_Rnpiycsu_Gmmb_PCOM-VhK-0.pdfPerforming Laboratory:[facility], [place] [address]Naqlnaowfu w/Microscopic + Reflex to [id number] 12:35:39 Test Item Value Reference Range Interpretation Comments Color, UA (test code Light Yellow = 5778-6) Clarity, UA (test Clear code = 5767-9) Specific Sheridan, UA 1.009 1.001-1.035 (test code = 5811-5) pH, UA (test code = 7.0 5.0-8.0 5803-2) Protein, UA (test 10 mg/dL Negative A code = 92929-8) Glucose, UA (test Negative Negative code = 365) Ketones, UA (test Negative Negative code = 2514-8) Bilirubin, UA (test Negative Negative code = 38796-0) Blood, UA (test code Negative Negative = 53773-3) Nitrite, UA (test Negative Negative code = 5802-4) Leukocytes, UA (test Negative Negative code = 5799-2) Urobilinogen, UA 0.2 mg/dL 0.2-1.0 (test code = 72500-6) RBC, UA (test code = <1 See_Comment [Autom ated 34218-2) message] The system which generated this result transmit perlita reference range : /HPF. The reference range was not used to interpret this result as normal/abnormal . WBC, UA (test code = 2 See_Comment [Autom ated 5821-4) message] The system which generated this result transmit perlita reference range : /HPF. The reference range was not used to interpret this result as normal/abnormal . Bacteria, UA (test None Seen code = 97160-6) Squam Epithel, UA 1 See_Comment [Automate d (test code = 70313-9) messag e] The system which generated this result transmit perlita reference range : /HPF. The reference range was not used to interpret this result as normal/abnormal . Crystals, Urine (test None Seen code = 89845-3) Amorphous Crystals Rare (test code = 93703-2) Specimen Source (test code = 2795) PENNY (test code = PENNY) Electrician Constructor Supervisor ID - [auto]Electrician Constructor Supervisor ID - tech Lab Interpretation Abnormal (test code = 08673-5) [facility] Culture 2021-08-20 12:35:39 Test Item Value Reference Range Interpretation Comments Color, UA (test code Light Yellow = 5778-6) Clarity, UA (test Clear code = 5767-9) Specific Sher[place], UA 1.009 1.001-1.035 (test code = 5811-5) pH, UA (test code = 7.0 5.0-8.0 5803-2) Protein, UA (test 10 mg/dL Negative A code = 32553-4) Glucose, UA (test Negative Negative code = 365) Ketones, UA (test Negative Negative code = 2514-8) Bilirubin, UA (test Negative Negative code = 44027-0) Blood, UA (test code Negative Negative = 54256-8) Nitrite, UA (test Negative Negative code = 5802-4) Leukocytes, UA (test Negative Negative code = 5799-2) Urobilinogen, UA 0.2 mg/dL 0.2-1.0 (test code = 39366-8) RBC, UA (test code = <1 See_Comment [Autom ated 98256-6) message] The system which generated this result transmit perlita reference range : /HPF. The reference range was not used to interpret this result as normal/abnormal . WBC, UA (test code = 2 See_Comment [Autom ated 5821-4) message] The system which generated this result transmit perlita reference range : /HPF. The reference range was not used to interpret this result as normal/abnormal . Bacteria, UA (test None Seen code = 19351-1) Squam Epithel, UA 1 See_Comment [Automate d (test code = 64183-4) messag e] The system which generated this result transmit perlita reference range : /HPF. The reference range was not used to interpret this result as normal/abnormal . Crystals, Urine (test None Seen code = 34367-7) Amorphous Crystals Rare (test code = 12586-6) Specimen Source (test code = 2795) PENNY (test code = PENNY) Electrician Constructor Supervisor ID - [auto]Electrician Constructor Supervisor ID - tech Lab Interpretation Abnormal (test code = 96031-8) [facility] Reflex to Culture 2021-08-20 12:35:39 Test Item Value Reference Range Interpretation Comments Color, UA (test code Light Yellow = 5778-6) Clarity, UA (test Clear code = 5767-9) Specific [place], UA 1.009 1.001-1.035 (test code = 5811-5) pH, UA (test code = 7.0 5.0-8.0 5803-2) Protein, UA (test 10 mg/dL Negative A code = 39312-4) Glucose, UA (test Negative Negative code = 365) Ketones, UA (test Negative Negative code = 2514-8) Bilirubin, UA (test Negative Negative code = 84923-1) Blood, UA (test code Negative Negative = 45338-6) Nitrite, UA (test Negative Negative code = 5802-4) Leukocytes, UA (test Negative Negative code = 5799-2) Urobilinogen, UA 0.2 mg/dL 0.2-1.0 (test code = 38589-8) RBC, UA (test code = <1 See_Comment [Autom ated 95893-1) message] The system which generated this result transmit perlita reference range : /HPF. The reference range was not used to interpret this result as normal/abnormal . WBC, UA (test code = 2 See_Comment [Autom ated 5821-4) message] The system which generated this result transmit perlita reference range : /HPF. The reference range was not used to interpret this result as normal/abnormal . Bacteria, UA (test None Seen code = 25962-0) Squam Epithel, UA 1 See_Comment [Automate d (test code = 00521-7) messag e] The system which generated this result transmit perlita reference range : /HPF. The reference range was not used to interpret this result as normal/abnormal . Crystals, Urine (test None Seen code = 90281-0) Amorphous Crystals Rare (test code = 50787-0) Specimen Source (test code = 2795) PENNY (test code = PENNY) Electrician Constructor Supervisor ID - [auto]Electrician Constructor Supervisor ID - tech Lab Interpretation Abnormal (test code = 78666-7) [facility] Reflex to Culture 2021-08-20 12:35:39 Test Item Value Reference Range Interpretation Comments Color, UA (test code Light Yellow = 5778-6) Clarity, UA (test Clear code = 5767-9) Specific [place], UA 1.009 1.001-1.035 (test code = 5811-5) pH, UA (test code = 7.0 5.0-8.0 5803-2) Protein, UA (test 10 mg/dL Negative A code = 36376-2) Glucose, UA (test Negative Negative code = 365) Ketones, UA (test Negative Negative code = 2514-8) Bilirubin, UA (test Negative Negative code = 11403-9) Blood, UA (test code Negative Negative = 42146-1) Nitrite, UA (test Negative Negative code = 5802-4) Leukocytes, UA (test Negative Negative code = 5799-2) Urobilinogen, UA 0.2 mg/dL 0.2-1.0 (test code = 66978-1) RBC, UA (test code = <1 See_Comment [Autom ated 43859-3) message] The system which generated this result transmit perlita reference range : /HPF. The reference range was not used to interpret this result as normal/abnormal . WBC, UA (test code = 2 See_Comment [Autom ated 5821-4) message] The system which generated this result transmit perlita reference range : /HPF. The reference range was not used to interpret this result as normal/abnormal . Bacteria, UA (test None Seen code = 19716-0) Squam Epithel, UA 1 See_Comment [Automate d (test code = 07727-1) messag e] The system which generated this result transmit perlita reference range : /HPF. The reference range was not used to interpret this result as normal/abnormal . Crystals, Urine (test None Seen code = 96381-4) Amorphous Crystals Rare (test code = 52643-9) Specimen Source (test code = 2795) PENNY (test code = PENNY) Electrician Constructor Supervisor ID - [auto]Electrician Constructor Supervisor ID - tech Lab Interpretation Abnormal (test code = 55189-1) [facility] Reflex to Culture 2021-08-20 12:35:39 Test Item Value Reference Range Interpretation Comments Color, UA (test code Light Yellow = 5778-6) Clarity, UA (test Clear code = 5767-9) Specific [place], UA 1.009 1.001-1.035 (test code = 5811-5) pH, UA (test code = 7.0 5.0-8.0 5803-2) Protein, UA (test 10 mg/dL Negative A code = 86230-1) Glucose, UA (test Negative Negative code = 365) Ketones, UA (test Negative Negative code = 2514-8) Bilirubin, UA (test Negative Negative code = 51048-7) Blood, UA (test code Negative Negative = 53085-0) Nitrite, UA (test Negative Negative code = 5802-4) Leukocytes, UA (test Negative Negative code = 5799-2) Urobilinogen, UA 0.2 mg/dL 0.2-1.0 (test code = 81609-8) RBC, UA (test code = <1 See_Comment [Autom ated 89495-2) message] The system which generated this result transmit perlita reference range : /HPF. The reference range was not used to interpret this result as normal/abnormal . WBC, UA (test code = 2 See_Comment [Autom ated 5821-4) message] The system which generated this result transmit perlita reference range : /HPF. The reference range was not used to interpret this result as normal/abnormal . Bacteria, UA (test None Seen code = 43353-4) Squam Epithel, UA 1 See_Comment [Automate d (test code = 83939-5) messag e] The system which generated this result transmit perlita reference range : /HPF. The reference range was not used to interpret this result as normal/abnormal . Crystals, Urine (test None Seen code = 46543-6) Amorphous Crystals Rare (test code = 60687-3) Specimen Source (test code = 2795) PENNY (test code = PENNY) Electrician Constructor Supervisor ID - [auto]Electrician Constructor Supervisor ID - tech Lab Interpretation Abnormal (test code = 39754-3) [facility] Reflex to Culture 2021-08-20 12:35:39 Test Item Value Reference Range Interpretation Comments Color, UA (test code Light Yellow = 5778-6) Clarity, UA (test Clear code = 5767-9) Specific [place], UA 1.009 1.001-1.035 (test code = 5811-5) pH, UA (test code = 7.0 5.0-8.0 5803-2) Protein, UA (test 10 mg/dL Negative A code = 26996-7) Glucose, UA (test Negative Negative code = 365) Ketones, UA (test Negative Negative code = 2514-8) Bilirubin, UA (test Negative Negative code = 03024-2) Blood, UA (test code Negative Negative = 17884-2) Nitrite, UA (test Negative Negative code = 5802-4) Leukocytes, UA (test Negative Negative code = 5799-2) Urobilinogen, UA 0.2 mg/dL 0.2-1.0 (test code = 58247-7) RBC, UA (test code = <1 See_Comment [Autom ated 32788-3) message] The system which generated this result transmit pelrita reference range : /HPF. The reference range was not used to interpret this result as normal/abnormal . WBC, UA (test code = 2 See_Comment [Autom ated 5821-4) message] The system which generated this result transmit perlita reference range : /HPF. The reference range was not used to interpret this result as normal/abnormal . Bacteria, UA (test None Seen code = 70906-9) Squam Epithel, UA 1 See_Comment [Automate d (test code = 89945-9) messag e] The system which generated this result transmit perlita reference range : /HPF. The reference range was not used to interpret this result as normal/abnormal . Crystals, Urine (test None Seen code = 55499-8) Amorphous Crystals Rare (test code = 39796-4) Specimen Source (test code = 2795) PENNY (test code = PENNY) Electrician Constructor Supervisor ID - [auto]Electrician Constructor Supervisor ID - tech Lab Interpretation Abnormal (test code = 39487-5) [facility]lex [facility] Culture 2021-08-20 12:35:39 Test Item Value Reference Range Interpretation Comments Color, UA (test code Light Yellow = 5778-6) Clarity, UA (test Clear code = 5767-9) Specific [place], UA 1.009 1.001-1.035 (test code = 5811-5) pH, UA (test code = 7.0 5.0-8.0 5803-2) Protein, UA (test 10 mg/dL Negative A code = 58039-6) Glucose, UA (test Negative Negative code = 365) Ketones, UA (test Negative Negative code = 2514-8) Bilirubin, UA (test Negative Negative code = 15962-2) Blood, UA (test code Negative Negative = 73017-1) Nitrite, UA (test Negative Negative code = 5802-4) Leukocytes, UA (test Negative Negative code = 5799-2) Urobilinogen, UA 0.2 mg/dL 0.2-1.0 (test code = 56714-3) RBC, UA (test code = <1 See_Comment [Autom ated 48799-4) message] The system which generated this result transmit perlita reference range : /HPF. The reference range was not used to interpret this result as normal/abnormal . WBC, UA (test code = 2 See_Comment [Autom ated 5821-4) message] The system which generated this result transmit perlita reference range : /HPF. The reference range was not used to interpret this result as normal/abnormal . Bacteria, UA (test None Seen code = 31315-5) Squam Epithel, UA 1 See_Comment [Automate d (test code = 24292-2) messag e] The system which generated this result transmit perlita reference range : /HPF. The reference range was not used to interpret this result as normal/abnormal . Crystals, Urine (test None Seen code = 28715-8) Amorphous Crystals Rare (test code = 25905-5) Specimen Source (test code = 2795) PENNY (test code = PENNY) Electrician Constructor Supervisor ID - [auto]Electrician Constructor Supervisor ID - tech Lab Interpretation Abnormal (test code = 96673-0) [facility] Reflex [facility] Culture 2021-08-20 12:35:39 Test Item Value Reference Range Interpretation Comments Color, UA (test code Light Yellow = 5778-6) Clarity, UA (test Clear code = 5767-9) Specific [place], UA 1.009 1.001-1.035 (test code = 5811-5) pH, UA (test code = 7.0 5.0-8.0 5803-2) Protein, UA (test 10 mg/dL Negative A code = 12888-0) Glucose, UA (test Negative Negative code = 365) Ketones, UA (test Negative Negative code = 2514-8) Bilirubin, UA (test Negative Negative code = 70377-8) Blood, UA (test code Negative Negative = 70552-4) Nitrite, UA (test Negative Negative code = 5802-4) Leukocytes, UA (test Negative Negative code = 5799-2) Urobilinogen, UA 0.2 mg/dL 0.2-1.0 (test code = 63488-3) RBC, UA (test code = <1 See_Comment [Autom ated 08298-4) message] The system which generated this result transmit perlita reference range : /HPF. The reference range was not used to interpret this result as normal/abnormal . WBC, UA (test code = 2 See_Comment [Autom ated 5821-4) message] The system which generated this result transmit perlita reference range : /HPF. The reference range was not used to interpret this result as normal/abnormal . Bacteria, UA (test None Seen code = 18930-7) Squam Epithel, UA 1 See_Comment [Automate d (test code = 67119-7) messag e] The system which generated this result transmit perlita reference range : /HPF. The reference range was not used to interpret this result as normal/abnormal . Crystals, Urine (test None Seen code = 64711-0) Amorphous Crystals Rare (test code = 85647-6) Specimen Source (test code = 2795) PENNY (test code = PENNY) Electrician Constructor Supervisor ID - [auto]Electrician Constructor Supervisor ID - tech Lab Interpretation Abnormal (test code = 97702-7) [facility] Reflex [facility] Culture 2021-08-20 12:35:39 Test Item Value Reference Range Interpretation Comments Color, UA (test code Light Yellow = 5778-6) Clarity, UA (test Clear code = 5767-9) Specific [place], UA 1.009 1.001-1.035 (test code = 5811-5) pH, UA (test code = 7.0 5.0-8.0 5803-2) Protein, UA (test 10 mg/dL Negative A code = 76919-3) Glucose, UA (test Negative Negative code = 365) Ketones, UA (test Negative Negative code = 2514-8) Bilirubin, UA (test Negative Negative code = 57341-7) Blood, UA (test code Negative Negative = 22855-4) Nitrite, UA (test Negative Negative code = 5802-4) Leukocytes, UA (test Negative Negative code = 5799-2) Urobilinogen, UA 0.2 mg/dL 0.2-1.0 (test code = 86041-6) RBC, UA (test code = <1 See_Comment [Autom ated 07889-2) message] The system which generated this result transmit perlita reference range : /HPF. The reference range was not used to interpret this result as normal/abnormal . WBC, UA (test code = 2 See_Comment [Autom ated 5821-4) message] The system which generated this result transmit perlita reference range : /HPF. The reference range was not used to interpret this result as normal/abnormal . Bacteria, UA (test None Seen code = 28575-2) Squam Epithel, UA 1 See_Comment [Automate d (test code = 15884-7) messag e] The system which generated this result transmit perlita reference range : /HPF. The reference range was not used to interpret this result as normal/abnormal . Crystals, Urine (test None Seen code = 85552-7) Amorphous Crystals Rare (test code = 67220-5) Specimen Source (test code = 2795) PENNY (test code = PENNY) Electrician Constructor Supervisor ID - [auto]Electrician Constructor Supervisor ID - tech Lab Interpretation Abnormal (test code = 54704-3) [facility] Reflex [facility] Culture 2021-08-20 12:35:39 Test Item Value Reference Range Interpretation Comments Color, UA (test code Light Yellow = 5778-6) Clarity, UA (test Clear code = 5767-9) Specific [place], UA 1.009 1.001-1.035 (test code = 5811-5) pH, UA (test code = 7.0 5.0-8.0 5803-2) Protein, UA (test 10 mg/dL Negative A code = 21696-5) Glucose, UA (test Negative Negative code = 365) Ketones, UA (test Negative Negative code = 2514-8) Bilirubin, UA (test Negative Negative code = 77112-6) Blood, UA (test code Negative Negative = 44649-1) Nitrite, UA (test Negative Negative code = 5802-4) Leukocytes, UA (test Negative Negative code = 5799-2) Urobilinogen, UA 0.2 mg/dL 0.2-1.0 (test code = 89014-1) RBC, UA (test code = <1 See_Comment [Autom ated 91987-8) message] The system which generated this result transmit perlita reference range : /HPF. The reference range was not used to interpret this result as normal/abnormal . WBC, UA (test code = 2 See_Comment [Autom ated 5821-4) message] The system which generated this result transmit perlita reference range : /HPF. The reference range was not used to interpret this result as normal/abnormal . Bacteria, UA (test None Seen code = 81272-7) Squam Epithel, UA 1 See_Comment [Automate d (test code = 60533-4) vernag e] The system which generated this result transmit perlita reference range : /HPF. The reference range was not used to interpret this result as normal/abnormal . Crystals, Urine (test None Seen code = 38925-6) Amorphous Crystals Rare (test code = 49319-9) Specimen Source (test code = 2795) PENNY (test code = PENNY) Electrician Constructor Supervisor ID - [auto]Electrician Constructor Supervisor ID - tech Lab Interpretation Abnormal (test code = 11325-8) [facility] URINE [id number] 12:35:39 Test Item Value Reference Range Interpretation Comments COLOR (BEAKER) (test code = 470) Light Yellow CLARITY (BEAKER) (test code = Clear 469) SPECIFIC GRAVITY UA (BEAKER) 1.009 1.001-1.035 (test code = 468) PH UA (BEAKER) (test code = 467) 7.0 5.0-8.0 PROTEIN UA (BEAKER) (test code = 10 mg/dL Negative A 464) GLUCOSE UA (BEAKER) (test code = Negative Negative 365) KETONES UA (BEAKER) (test code = Negative Negative 371) BILIRUBIN UA (BEAKER) (test code Negative Negative = 462) BLOOD UA (BEAKER) (test code = Negative Negative 461) NITRITE UA (BEAKER) (test code = Negative Negative 465) LEUKOCYTE ESTERASE UA (BEAKER) Negative Negative (test code = 466) UROBILINOGEN UA (BEAKER) (test 0.2 mg/dL 0.2-1.0 code = 463) RBC UA (BEAKER) (test code = < /HPF 519) WBC UA (BEAKER) (test code = 2 /HPF 520) BACTERIA (BEAKER) (test code = None Seen 517) SQUAMOUS EPITHELIAL (BEAKER) 1 /HPF (test code = 516) CRYSTALS, URINE (BEAKER) (test None Seen code = 1521) AMORPHOUS CRYSTALS (BEAKER) Rare (test code = 1584) SOURCE(BEAKER) (test code = 2795) Electrician Constructor Supervisor ID - [auto]Electrician Constructor Supervisor ID - techRAD, CHEST, 2 [id number] 10:36:00 Reason for exam:->trigeminal neuralgia, pre-op [facility]ENTERName: ASHLIE HUERTAS : 1945 Sex: FFINAL REPORT Exam: RAD, CHEST, 2 VIEWSDate: 08/20/2021 10:34 AM Indication:trigeminal neuralgia, pre-opComparison: 06/16/2021 FINDINGS: AP, PA and lateral views. PA view is suboptimal as the left lateral chest is collimated out of view.Lateral view suboptimal as the posterior inferior aspects of the lung are obscured by overlying densities. Lines/Tubes/Devices: Surgical clips overlying the left lateral chest and left mediastinal border Lungs/pleura:Lungs are well inflated. No focal consolidation or pulmonary edema. No pleural effusion. No pneumothorax. Heart/Mediastinum:The cardiomediastinal silhouette is normal in size and contour. Right hilar mass again noted. Bones/Soft Tissues: No acute osseous abnormality. Upper abdomen: Unremarkable. IMPRESSION: Right hilar mass again noted.No focal consolidation, effusion or pneumothorax. Signed: Pio Fajardo MDReport Verified Date/Time: 08/20/2021 10:36:51 Reading Location: [facility] Radiology Reading Room Type and screen, [id number] 10:09:00 Test Item Value Reference Range Interpretation Comments ABO/RH AUTOMATED (BEAKER) (test O POSITIVE code = 2260) Ab Scrn (test code = 890-4) NEGATIVE [facility] Center[facility] screen, [id number] 10:09:00 Test Item Value Reference Range Interpretation Comments ABO/RH AUTOMATED (BEAKER) (test O POSITIVE code = 2260) Ab Scrn (test code = 890-4) NEGATIVE [facility] Center[facility] screen, [id number] 10:09:00 Test Item Value Reference Range Interpretation Comments ABO/RH AUTOMATED (BEAKER) (test O POSITIVE code = 2260) Ab Scrn (test code = 890-4) NEGATIVE [facility] Center[facility] screen, [id number] 10:09:00 Test Item Value Reference Range Interpretation Comments ABO/RH AUTOMATED (BEAKER) (test O POSITIVE code = 2260) Ab Scrn (test code = 890-4) NEGATIVE [facility] screen, [id number] 10:09:00 Test Item Value Reference Range Interpretation Comments ABO/RH AUTOMATED (BEAKER) (test O POSITIVE code = 2260) Ab Scrn (test code = 890-4) NEGATIVE [facility] screen, [id number] 10:09:00 Test Item Value Reference Range Interpretation Comments ABO/RH AUTOMATED (BEAKER) (test O POSITIVE code = 2260) Ab Scrn (test code = 890-4) NEGATIVE [facility] Center[facility] and screen, [id number] 10:09:00 Test Item Value Reference Range Interpretation Comments ABO/RH AUTOMATED (BEAKER) (test O POSITIVE code = 2260) Ab Scrn (test code = 890-4) NEGATIVE [facility] Center[facility] and screen, [id number] 10:09:00 Test Item Value Reference Range Interpretation Comments ABO/RH AUTOMATED (BEAKER) (test O POSITIVE code = 2260) Ab Scrn (test code = 890-4) NEGATIVE [facility], [id number] 10:09:00 Test Item Value Reference Range Interpretation Comments ABO/RH AUTOMATED (BEAKER) (test O POSITIVE code = 2260) Ab Scrn (test code = 890-4) NEGATIVE [facility] Center[facility] and screen, [id number] 10:09:00 Test Item Value Reference Range Interpretation Comments ABO/RH AUTOMATED (BEAKER) (test O POSITIVE code = 2260) Ab Scrn (test code = 890-4) NEGATIVE [facility] Metabolic [id number] 09:45:23 Test Item Value Reference Range Interpretation Comments Sodium (test code = 138 meq/L 563-122 0406-2) Potassium (test 3.6 meq/L 3.5-5.1 code = 2823-3) Chloride (test code 104 meq/L 98-107 = 2075-0) CO2 (test code = 24 meq/L 2028-02) BUN (test code = 11 mg/dL 12-24 3094-0) Creatinine (test 0.83 mg/dL 0.57-1.25 code = 2160-0) Glucose (test code 92 mg/dL 70-105 = 2345-7) Calcium (test code 9.5 mg/dL 8.4-10.2 = 71406-6) EGFR (test code = 81 mL/min/1.73 [place] [address]-5) NOT ACCURATE CREATININE CLEARANCE IN PREDICTING GLOMERULAR FILTRATION RATE . ESTIMATED GFR I S NOT APPLICABLE FOR DIALYSIS PATIEN TS. PENNY (test code = Electrician Constructor Supervisor ID - BS PENNY) [facility] Metabolic [id number] 09:45:23 Test Item Value Reference Range Interpretation Comments Sodium (test code = 138 meq/L 826-471 6386-2) Potassium (test 3.6 meq/L 3.5-5.1 code = 2823-3) Chloride (test code 104 meq/L 98-107 = 2075-0) CO2 (test code = 24 meq/L 2028-02) BUN (test code = 11 mg/dL 12-24 3094-0) Creatinine (test 0.83 mg/dL 0.57-1.25 code = 2160-0) Glucose (test code 92 mg/dL 70-105 = 2345-7) Calcium (test code 9.5 mg/dL 8.4-10.2 = 69037-6) EGFR (test code = 81 mL/min/1.[place] [address]-0) NOT ACCURATE CREATININE CLEARANCE IN PREDICTING GLOMERULAR FILTRATION RATE . ESTIMATED GFR I S NOT APPLICABLE FOR DIALYSIS PATIEN TS. PENNY (test code = Electrician Constructor Supervisor ID - BS PENNY) [facility] Metabolic [id number] 09:45:23 Test Item Value Reference Range Interpretation Comments Sodium (test code = 138 meq/L 348-852 4082-2) Potassium (test 3.6 meq/L 3.5-5.1 code = 2823-3) Chloride (test code 104 meq/L 98-107 = 2075-0) CO2 (test code = 24 meq/L 2027-) BUN (test code = 11 mg/dL 12-24 3094-0) Creatinine (test 0.83 mg/dL 0.57-1.25 code = 2160-0) Glucose (test code 92 mg/dL 70-105 = 2345-7) Calcium (test code 9.5 mg/dL 8.4-10.2 = 12966-1) EGFR (test code = 81 mL/min/1.[place] [address]-5) NOT ACCURATE CREATININE CLEARANCE IN PREDICTING GLOMERULAR FILTRATION RATE . ESTIMATED GFR I S NOT APPLICABLE FOR DIALYSIS PATIEN TS. PENNY (test code = Electrician Constructor Supervisor ID - BS PENNY) [facility] Metabolic [id number] 09:45:23 Test Item Value Reference Range Interpretation Comments Sodium (test code = 138 meq/L 379-182 5705-2) Potassium (test 3.6 meq/L 3.5-5.1 code = 2823-3) Chloride (test code 104 meq/L 98-107 = 2075-0) CO2 (test code = 24 meq/L 2028-02) BUN (test code = 11 mg/dL 12-24 3094-0) Creatinine (test 0.83 mg/dL 0.57-1.25 code = 2160-0) Glucose (test code 92 mg/dL 70-105 = 2345-7) Calcium (test code 9.5 mg/dL 8.4-10.2 = 22578-2) EGFR (test code = 81 mL/min/1.[place] [address]-6) NOT ACCURATE CREATININE CLEARANCE IN PREDICTING GLOMERULAR FILTRATION RATE . ESTIMATED GFR I S NOT APPLICABLE FOR DIALYSIS PATIEN TS. PENNY (test code = Electrician Constructor Supervisor ID - BS PENNY) [facility] Metabolic [id number] 09:45:23 Test Item Value Reference Range Interpretation Comments Sodium (test code = 138 meq/L 147-405 2560-2) Potassium (test 3.6 meq/L 3.5-5.1 code = 2823-3) Chloride (test code 104 meq/L 98-107 = 2075-0) CO2 (test code = 24 meq/L -2027-) BUN (test code = 11 mg/dL 7- 3094-0) Creatinine (test 0.83 mg/dL 0.57-1.25 code = 2160-0) Glucose (test code 92 mg/dL 70-105 = 2345-7) Calcium (test code 9.5 mg/dL 8.4-10.2 = 81988-1) EGFR (test code = 81 mL/min/1.[place] [address]-5) NOT ACCURATE CREATININE CLEARANCE IN PREDICTING GLOMERULAR FILTRATION RATE . ESTIMATED GFR I S NOT APPLICABLE FOR DIALYSIS PATIEN TS. PENNY (test code = Electrician Constructor Supervisor ID - BS PENNY) [facility] Metabolic [id number] 09:45:23 Test Item Value Reference Range Interpretation Comments Sodium (test code = 138 meq/L 339-978 3137-2) Potassium (test 3.6 meq/L 3.5-5.1 code = 2823-3) Chloride (test code 104 meq/L 98-107 = 2075-0) CO2 (test code = 24 meq/L -2028-02) BUN (test code = 11 mg/dL 7- 3094-0) Creatinine (test 0.83 mg/dL 0.57-1.25 code = 2160-0) Glucose (test code 92 mg/dL 70-105 = 2345-7) Calcium (test code 9.5 mg/dL 8.4-10.2 = 89110-7) EGFR (test code = 81 mL/min/1.[place] [address]-8) NOT ACCURATE CREATININE CLEARANCE IN PREDICTING GLOMERULAR FILTRATION RATE . ESTIMATED GFR I S NOT APPLICABLE FOR DIALYSIS PATIEN TS. PENNY (test code = Electrician Constructor Supervisor ID - BS PENNY) [facility] Metabolic [id number] 09:45:23 Test Item Value Reference Range Interpretation Comments Sodium (test code = 138 meq/L 033-553 8544-2) Potassium (test 3.6 meq/L 3.5-5.1 code = 2823-3) Chloride (test code 104 meq/L 98-107 = 2075-0) CO2 (test code = 24 meq/L -2027-) BUN (test code = 11 mg/dL 7- 3094-0) Creatinine (test 0.83 mg/dL 0.57-1.25 code = 2160-0) Glucose (test code 92 mg/dL 70-105 = 2345-7) Calcium (test code 9.5 mg/dL 8.4-10.2 = 00026-0) EGFR (test code = 81 mL/min/1.[place] [address]-1) NOT ACCURATE CREATININE CLEARANCE IN PREDICTING GLOMERULAR FILTRATION RATE . ESTIMATED GFR I S NOT APPLICABLE FOR DIALYSIS PATIEN TS. PENNY (test code = Electrician Constructor Supervisor ID - BS PENNY) [facility] Metabolic [id number] 09:45:23 Test Item Value Reference Range Interpretation Comments Sodium (test code = 138 meq/L 022-595 3149-2) Potassium (test 3.6 meq/L 3.5-5.1 code = 2823-3) Chloride (test code 104 meq/L 98-107 = 2075-0) CO2 (test code = 24 meq/L 2028-02) BUN (test code = 11 mg/dL - 3094-0) Creatinine (test 0.83 mg/dL 0.57-1.25 code = 2160-0) Glucose (test code 92 mg/dL 70-105 = 2345-7) Calcium (test code 9.5 mg/dL 8.4-10.2 = 76656-0) EGFR (test code = 81 mL/min/1.[place] [address]-7) NOT ACCURATE CREATININE CLEARANCE IN PREDICTING GLOMERULAR FILTRATION RATE . ESTIMATED GFR I S NOT APPLICABLE FOR DIALYSIS PATIEN TS. PENNY (test code = Electrician Constructor Supervisor ID - BS PENNY) [facility] Metabolic [id number] 09:45:23 Test Item Value Reference Range Interpretation Comments Sodium (test code = 138 meq/L 360-603 9925-2) Potassium (test 3.6 meq/L 3.5-5.1 code = 2823-3) Chloride (test code 104 meq/L 98-107 = 2075-0) CO2 (test code = 24 meq/L 2028-02) BUN (test code = 11 mg/dL - 3094-0) Creatinine (test 0.83 mg/dL 0.57-1.25 code = 2160-0) Glucose (test code 92 mg/dL 70-105 = 2345-7) Calcium (test code 9.5 mg/dL 8.4-10.2 = 90372-2) EGFR (test code = 81 mL/min/1.[place] [address]-2) NOT ACCURATE CREATININE CLEARANCE IN PREDICTING GLOMERULAR FILTRATION RATE . ESTIMATED GFR I S NOT APPLICABLE FOR DIALYSIS PATIEN TS. PENNY (test code = Electrician Constructor Supervisor ID - BS PENNY) [facility] Metabolic [id number] 09:45:23 Test Item Value Reference Range Interpretation Comments Sodium (test code = 138 meq/L 959-984 8641-2) Potassium (test 3.6 meq/L 3.5-5.1 code = 2823-3) Chloride (test code 104 meq/L 98-107 = 2075-0) CO2 (test code = 24 meq/L 2028-02) BUN (test code = 11 mg/dL 12-24 3094-0) Creatinine (test 0.83 mg/dL 0.57-1.25 code = 2160-0) Glucose (test code 92 mg/dL 70-105 = 2345-7) Calcium (test code 9.5 mg/dL 8.4-10.2 = 51385-4) EGFR (test code = 81 mL/min/1.[place] [address]-1) NOT ACCURATE CREATININE CLEARANCE IN PREDICTING GLOMERULAR FILTRATION RATE . ESTIMATED GFR I S NOT APPLICABLE FOR DIALYSIS PATIEN TS. PENNY (test code = Electrician Constructor Supervisor ID - BS PENNY) [facility] METABOLIC [id number] 09:45:23 Test Item Value Reference Range Interpretation Comments SODIUM (BEAKER) 138 meq/L 136-145 (test code = 381) POTASSIUM (BEAKER) 3.6 meq/L 3.5-5.1 (test code = 379) CHLORIDE (BEAKER) 104 meq/L 98-107 (test code = 382) CO2 (BEAKER) (test 24 meq/L 22-29 code = 355) BLOOD UREA NITROGEN 11 mg/dL 7-21 (BEAKER) (test code = 354) CREATININE (BEAKER) 0.83 mg/dL 0.57-1.25 (test code = 358) GLUCOSE RANDOM 92 mg/dL 70-105 (BEAKER) (test code = 652) CALCIUM (BEAKER) 9.5 mg/dL 8.4-10.2 (test code = 697) EGFR (BEAKER) (test 81 mL/min/1.73 ESTIMA PERLITA GFR IS code = 1092) sq m NOT ACCURATE CREATININE CLEARANCE IN PREDICTING GLOMERULAR FILTRATION RATE . ESTIMATED GFR I S NOT APPLICABLE FOR DIALYSIS PATINICOLE ZELAYA. Electrician Constructor Supervisor ID - [id number] 09:36:46 Test Item Value Reference Interpretation Comments Range Protime (test code = 13.6 See_Comment [Autom ated 5902-2) message] The system which generated this result transmitted reference range : 11.9 - 14.2 seconds. The reference range was not used to interpret this result as normal/abnormal . INR (test code = 1.06 See_Comment [Automated 8453-6) message] The system which generated this result transmitted reference range : <=5.90. The reference range was not used to interpret this result as normal/abnormal . PTT (test code = 30.1 See_Comment [Automated 13671-9) message] The system which generated this result transmitted reference range : 22.5 - 36.0 seconds. The reference range was not used to interpret this result as normal/abnormal . PENNY (test code = RECOMMENDED PENNY) COUMADIN/WARFARIN INR THERAPY RANGESSTANDARD DOSE: 2.0 - 3.0 Includes: PROPHYLAXIS for venous thrombosis, systemic embolization; TREATMENT for venous thrombosis and/or pulmonary embolus.HIGH RISK: Target INR is 2.5-3.5 for patients with mechanical heart valves. Lab Interpretation Normal (test code = 22954-2) [id number] 09:36:46 Test Item Value Reference Interpretation Comments Range Protime (test code = 13.6 See_Comment [Autom ated 5902-2) message] The system which generated this result transmitted reference range : 11.9 - 14.2 seconds. The reference range was not used to interpret this result as normal/abnormal . INR (test code = 1.06 See_Comment [Automated 6301-6) message] The system which generated this result transmitted reference range : <=5.90. The reference range was not used to interpret this result as normal/abnormal . PTT (test code = 30.1 See_Comment [Automated 62076-8) message] The system which generated this result transmitted reference range : 22.5 - 36.0 seconds. The reference range was not used to interpret this result as normal/abnormal . PENNY (test code = RECOMMENDED PENNY) COUMADIN/WARFARIN INR THERAPY RANGESSTANDARD DOSE: 2.0 - 3.0 Includes: PROPHYLAXIS for venous thrombosis, systemic embolization; TREATMENT for venous thrombosis and/or pulmonary embolus.HIGH RISK: Target INR is 2.5-3.5 for patients with mechanical heart valves. Lab Interpretation Normal (test code = 57165-1) [facility][id number] 09:36:46 Test Item Value Reference Interpretation Comments Range Protime (test code = 13.6 See_Comment [Autom ated 5902-2) message] The system which generated this result transmitted reference range : 11.9 - 14.2 seconds. The reference range was not used to interpret this result as normal/abnormal . INR (test code = 1.06 See_Comment [Automated 6301-6) message] The system which generated this result transmitted reference range : <=5.90. The reference range was not used to interpret this result as normal/abnormal . PTT (test code = 30.1 See_Comment [Automated 78810-1) message] The system which generated this result transmitted reference range : 22.5 - 36.0 seconds. The reference range was not used to interpret this result as normal/abnormal . PENNY (test code = RECOMMENDED PENNY) COUMADIN/WARFARIN INR THERAPY RANGESSTANDARD DOSE: 2.0 - 3.0 Includes: PROPHYLAXIS for venous thrombosis, systemic embolization; TREATMENT for venous thrombosis and/or pulmonary embolus.HIGH RISK: Target INR is 2.5-3.5 for patients with mechanical heart valves. Lab Interpretation Normal (test code = 00549-9) [facility]/[id number] 09:36:46 Test Item Value Reference Interpretation Comments Range Protime (test code = 13.6 See_Comment [Autom ated 5902-2) message] The system which generated this result transmitted reference range : 11.9 - 14.2 seconds. The reference range was not used to interpret this result as normal/abnormal . INR (test code = 1.06 See_Comment [Automated 6301-6) message] The system which generated this result transmitted reference range : <=5.90. The reference range was not used to interpret this result as normal/abnormal . PTT (test code = 30.1 See_Comment [Automated 25709-2) message] The system which generated this result transmitted reference range : 22.5 - 36.0 seconds. The reference range was not used to interpret this result as normal/abnormal . PENNY (test code = RECOMMENDED PENNY) COUMADIN/WARFARIN INR THERAPY RANGESSTANDARD DOSE: 2.0 - 3.0 Includes: PROPHYLAXIS for venous thrombosis, systemic embolization; TREATMENT for venous thrombosis and/or pulmonary embolus.HIGH RISK: Target INR is 2.5-3.5 for patients with mechanical heart valves. Lab Interpretation Normal (test code = 77692-9) [id number]46 Test Item Value Reference Interpretation Comments Range Protime (test code = 13.6 See_Comment [Autom ated 5902-2) message] The system which generated this result transmitted reference range : 11.9 - 14.2 seconds. The reference range was not used to interpret this result as normal/abnormal . INR (test code = 1.06 See_Comment [Automated 6301-6) message] The system which generated this result transmitted reference range : <=5.90. The reference range was not used to interpret this result as normal/abnormal . PTT (test code = 30.1 See_Comment [Automated 03086-6) message] The system which generated this result transmitted reference range : 22.5 - 36.0 seconds. The reference range was not used to interpret this result as normal/abnormal . PENNY (test code = RECOMMENDED PENNY) COUMADIN/WARFARIN INR THERAPY RANGESSTANDARD DOSE: 2.0 - 3.0 Includes: PROPHYLAXIS for venous thrombosis, systemic embolization; TREATMENT for venous thrombosis and/or pulmonary embolus.HIGH RISK: Target INR is 2.5-3.5 for patients with mechanical heart valves. Lab Interpretation Normal (test code = 57625-0) [facility][id number] 09:36:46 Test Item Value Reference Interpretation Comments Range Protime (test code = 13.6 See_Comment [Autom ated 5902-2) message] The system which generated this result transmitted reference range : 11.9 - 14.2 seconds. The reference range was not used to interpret this result as normal/abnormal . INR (test code = 1.06 See_Comment [Automated 6301-6) message] The system which generated this result transmitted reference range : <=5.90. The reference range was not used to interpret this result as normal/abnormal . PTT (test code = 30.1 See_Comment [Automated 69517-3) message] The system which generated this result transmitted reference range : 22.5 - 36.0 seconds. The reference range was not used to interpret this result as normal/abnormal . PENNY (test code = RECOMMENDED PENNY) COUMADIN/WARFARIN INR THERAPY RANGESSTANDARD DOSE: 2.0 - 3.0 Includes: PROPHYLAXIS for venous thrombosis, systemic embolization; TREATMENT for venous thrombosis and/or pulmonary embolus.HIGH RISK: Target INR is 2.5-3.5 for patients with mechanical heart valves. Lab Interpretation Normal (test code = 39984-2) [facility][id number] 09:36:46 Test Item Value Reference Interpretation Comments Range Protime (test code = 13.6 See_Comment [Autom ated 5902-2) message] The system which generated this result transmitted reference range : 11.9 - 14.2 seconds. The reference range was not used to interpret this result as normal/abnormal . INR (test code = 1.06 See_Comment [Automated 6301-6) message] The system which generated this result transmitted reference range : <=5.90. The reference range was not used to interpret this result as normal/abnormal . PTT (test code = 30.1 See_Comment [Automated 56223-9) message] The system which generated this result transmitted reference range : 22.5 - 36.0 seconds. The reference range was not used to interpret this result as normal/abnormal . PENNY (test code = RECOMMENDED PENNY) COUMADIN/WARFARIN INR THERAPY RANGESSTANDARD DOSE: 2.0 - 3.0 Includes: PROPHYLAXIS for venous thrombosis, systemic embolization; TREATMENT for venous thrombosis and/or pulmonary embolus.HIGH RISK: Target INR is 2.5-3.5 for patients with mechanical heart valves. Lab Interpretation Normal (test code = 09443-6) [facility][id number] 09:36:46 Test Item Value Reference Interpretation Comments Range Protime (test code = 13.6 See_Comment [Autom ated 5902-2) message] The system which generated this result transmitted reference range : 11.9 - 14.2 seconds. The reference range was not used to interpret this result as normal/abnormal . INR (test code = 1.06 See_Comment [Automated 6301-6) message] The system which generated this result transmitted reference range : <=5.90. The reference range was not used to interpret this result as normal/abnormal . PTT (test code = 30.1 See_Comment [Automated 32769-0) message] The system which generated this result transmitted reference range : 22.5 - 36.0 seconds. The reference range was not used to interpret this result as normal/abnormal . PENNY (test code = RECOMMENDED PENNY) COUMADIN/WARFARIN INR THERAPY RANGESSTANDARD DOSE: 2.0 - 3.0 Includes: PROPHYLAXIS for venous thrombosis, systemic embolization; TREATMENT for venous thrombosis and/or pulmonary embolus.HIGH RISK: Target INR is 2.5-3.5 for patients with mechanical heart valves. Lab Interpretation Normal (test code = 73337-0) [facility][id number] 09:36:46 Test Item Value Reference Interpretation Comments Range Protime (test code = 13.6 See_Comment [Autom ated 5902-2) message] The system which generated this result transmitted reference range : 11.9 - 14.2 seconds. The reference range was not used to interpret this result as normal/abnormal . INR (test code = 1.06 See_Comment [Automated 6301-6) message] The system which generated this result transmitted reference range : <=5.90. The reference range was not used to interpret this result as normal/abnormal . PTT (test code = 30.1 See_Comment [Automated 98757-9) message] The system which generated this result transmitted reference range : 22.5 - 36.0 seconds. The reference range was not used to interpret this result as normal/abnormal . PENNY (test code = RECOMMENDED PENNY) COUMADIN/WARFARIN INR THERAPY RANGESSTANDARD DOSE: 2.0 - 3.0 Includes: PROPHYLAXIS for venous thrombosis, systemic embolization; TREATMENT for venous thrombosis and/or pulmonary embolus.HIGH RISK: Target INR is 2.5-3.5 for patients with mechanical heart valves. Lab Interpretation Normal (test code = 27621-1) [facility][id number] 09:36:46 Test Item Value Reference Interpretation Comments Range Protime (test code = 13.6 See_Comment [Autom ated 5902-2) message] The system which generated this result transmitted reference range : 11.9 - 14.2 seconds. The reference range was not used to interpret this result as normal/abnormal . INR (test code = 1.06 <=5.90 6301-6) PTT (test code = 30.1 See_Comment [Automated 90748-2) message] The system which generated this result transmitted reference range : 22.5 - 36.0 seconds. The reference range was not used to interpret this result as normal/abnormal . PENNY (test code = RECOMMENDED PENNY) COUMADIN/WARFARIN INR THERAPY RANGESSTANDARD DOSE: 2.0 - 3.0 Includes: PROPHYLAXIS for venous thrombosis, systemic embolization; TREATMENT for venous thrombosis and/or pulmonary embolus.HIGH RISK: Target INR is 2.5-3.5 for patients with mechanical heart valves. Lab Interpretation Normal (test code = 75099-1) [facility][id number] 09:36:46 Test Item Value Reference Range Interpretation Comments PROTIME (BEAKER) (test 13.6 seconds 11.9-14.2 code = 759) INR (BEAKER) (test 1.06 See_Comment [Automat ed code = 370) message] The sy stem which generated this result transmitted reference range : <=5.90. The reference range was not used to interpret this result as normal/abnormal . PARTIAL THROMBOPLASTIN 30.1 seconds 22.5-36.0 TIME (BEAKER) (test code = 760) RECOMMENDED COUMADIN/WARFARIN INR THERAPY RANGESSTANDARD DOSE: 2.0 - 3.0 Includes: PROPHYLAXIS for venous thrombosis, systemic embolization; TREATMENT for venous thrombosis and/or pulmonary embolus.HIGH RISK: Target INR is 2.5-3.5 for patients with mechanical heart valves.Prothrombin time/[id number] 09:35:44 Test Item Value Reference Interpretation Comments Range Protime (test code = 13.6 See_Comment [Autom ated 5902-2) message] The system which generated this result transmitted reference range : 11.9 - 14.2 seconds. The reference range was not used to interpret this result as normal/abnormal . INR (test code = 1.06 See_Comment [Automated 6301-6) message] The system which generated this result transmitted reference range : <=5.90. The reference range was not used to interpret this result as normal/abnormal . PENNY (test code = RECOMMENDED PENNY) COUMADIN/WARFARIN INR THERAPY RANGESSTANDARD DOSE: 2.0 - 3.0 Includes: PROPHYLAXIS for venous thrombosis, systemic embolization; TREATMENT for venous thrombosis and/or pulmonary embolus.HIGH RISK: Target INR is 2.5-3.5 for patients with mechanical heart valves. Lab Interpretation Normal (test code = 52133-7) [facility]/[id number] 09:35:44 Test Item Value Reference Interpretation Comments Range Protime (test code = 13.6 See_Comment [Autom ated 5902-2) message] The system which generated this result transmitted reference range : 11.9 - 14.2 seconds. The reference range was not used to interpret this result as normal/abnormal . INR (test code = 1.06 See_Comment [Automated 6301-6) message] The system which generated this result transmitted reference range : <=5.90. The reference range was not used to interpret this result as normal/abnormal . PENNY (test code = RECOMMENDED PENNY) COUMADIN/WARFARIN INR THERAPY RANGESSTANDARD DOSE: 2.0 - 3.0 Includes: PROPHYLAXIS for venous thrombosis, systemic embolization; TREATMENT for venous thrombosis and/or pulmonary embolus.HIGH RISK: Target INR is 2.5-3.5 for patients with mechanical heart valves. Lab Interpretation Normal (test code = 84423-7) [facility]/[id number] 09:35:44 Test Item Value Reference Interpretation Comments Range Protime (test code = 13.6 See_Comment [Autom ated 5902-2) message] The system which generated this result transmitted reference range : 11.9 - 14.2 seconds. The reference range was not used to interpret this result as normal/abnormal . INR (test code = 1.06 See_Comment [Automated LibertadCard1-6) message] The system which generated this result transmitted reference range : <=5.90. The reference range was not used to interpret this result as normal/abnormal . PENNY (test code = RECOMMENDED PENNY) COUMADIN/WARFARIN INR THERAPY RANGESSTANDARD DOSE: 2.0 - 3.0 Includes: PROPHYLAXIS for venous thrombosis, systemic embolization; TREATMENT for venous thrombosis and/or pulmonary embolus.HIGH RISK: Target INR is 2.5-3.5 for patients with mechanical heart valves. Lab Interpretation Normal (test code = 41318-8) [facility]/[id number] 09:35:44 Test Item Value Reference Interpretation Comments Range Protime (test code = 13.6 See_Comment [Autom ated 5902-2) message] The system which generated this result transmitted reference range : 11.9 - 14.2 seconds. The reference range was not used to interpret this result as normal/abnormal . INR (test code = 1.06 See_Comment [Automated LibertadCard1-6) message] The system which generated this result transmitted reference range : <=5.90. The reference range was not used to interpret this result as normal/abnormal . PENNY (test code = RECOMMENDED PENNY) COUMADIN/WARFARIN INR THERAPY RANGESSTANDARD DOSE: 2.0 - 3.0 Includes: PROPHYLAXIS for venous thrombosis, systemic embolization; TREATMENT for venous thrombosis and/or pulmonary embolus.HIGH RISK: Target INR is 2.5-3.5 for patients with mechanical heart valves. Lab Interpretation Normal (test code = 16877-2) [facility]/[id number] 09:35:44 Test Item Value Reference Interpretation Comments Range Protime (test code = 13.6 See_Comment [Autom ated 5902-2) message] The system which generated this result transmitted reference range : 11.9 - 14.2 seconds. The reference range was not used to interpret this result as normal/abnormal . INR (test code = 1.06 See_Comment [Automated 6301-6) message] The system which generated this result transmitted reference range : <=5.90. The reference range was not used to interpret this result as normal/abnormal . PENNY (test code = RECOMMENDED PENNY) COUMADIN/WARFARIN INR THERAPY RANGESSTANDARD DOSE: 2.0 - 3.0 Includes: PROPHYLAXIS for venous thrombosis, systemic embolization; TREATMENT for venous thrombosis and/or pulmonary embolus.HIGH RISK: Target INR is 2.5-3.5 for patients with mechanical heart valves. Lab Interpretation Normal (test code = 86650-7) [facility]/[id number] 09:35:44 Test Item Value Reference Interpretation Comments Range Protime (test code = 13.6 See_Comment [Autom ated 5902-2) message] The system which generated this result transmitted reference range : 11.9 - 14.2 seconds. The reference range was not used to interpret this result as normal/abnormal . INR (test code = 1.06 See_Comment [Automated LibertadCard1-6) message] The system which generated this result transmitted reference range : <=5.90. The reference range was not used to interpret this result as normal/abnormal . PENNY (test code = RECOMMENDED PENNY) COUMADIN/WARFARIN INR THERAPY RANGESSTANDARD DOSE: 2.0 - 3.0 Includes: PROPHYLAXIS for venous thrombosis, systemic embolization; TREATMENT for venous thrombosis and/or pulmonary embolus.HIGH RISK: Target INR is 2.5-3.5 for patients with mechanical heart valves. Lab Interpretation Normal (test code = 02163-2) [facility]/[id number] 09:35:44 Test Item Value Reference Interpretation Comments Range Protime (test code = 13.6 See_Comment [Autom ated 5902-2) message] The system which generated this result transmitted reference range : 11.9 - 14.2 seconds. The reference range was not used to interpret this result as normal/abnormal . INR (test code = 1.06 See_Comment [Automated 6301-6) message] The system which generated this result transmitted reference range : <=5.90. The reference range was not used to interpret this result as normal/abnormal . PENNY (test code = RECOMMENDED PENNY) COUMADIN/WARFARIN INR THERAPY RANGESSTANDARD DOSE: 2.0 - 3.0 Includes: PROPHYLAXIS for venous thrombosis, systemic embolization; TREATMENT for venous thrombosis and/or pulmonary embolus.HIGH RISK: Target INR is 2.5-3.5 for patients with mechanical heart valves. Lab Interpretation Normal (test code = 07428-9) [facility]/[id number] 09:35:44 Test Item Value Reference Interpretation Comments Range Protime (test code = 13.6 See_Comment [Autom ated 5902-2) message] The system which generated this result transmitted reference range : 11.9 - 14.2 seconds. The reference range was not used to interpret this result as normal/abnormal . INR (test code = 1.06 See_Comment [Automated 6301-6) message] The system which generated this result transmitted reference range : <=5.90. The reference range was not used to interpret this result as normal/abnormal . PENNY (test code = RECOMMENDED PENNY) COUMADIN/WARFARIN INR THERAPY RANGESSTANDARD DOSE: 2.0 - 3.0 Includes: PROPHYLAXIS for venous thrombosis, systemic embolization; TREATMENT for venous thrombosis and/or pulmonary embolus.HIGH RISK: Target INR is 2.5-3.5 for patients with mechanical heart valves. Lab Interpretation Normal (test code = 80193-2) [facility]/[id number] 09:35:44 Test Item Value Reference Interpretation Comments Range Protime (test code = 13.6 See_Comment [Autom ated 5902-2) message] The system which generated this result transmitted reference range : 11.9 - 14.2 seconds. The reference range was not used to interpret this result as normal/abnormal . INR (test code = 1.06 See_Comment [Automated 6301-6) message] The system which generated this result transmitted reference range : <=5.90. The reference range was not used to interpret this result as normal/abnormal . PENNY (test code = RECOMMENDED PENNY) COUMADIN/WARFARIN INR THERAPY RANGESSTANDARD DOSE: 2.0 - 3.0 Includes: PROPHYLAXIS for venous thrombosis, systemic embolization; TREATMENT for venous thrombosis and/or pulmonary embolus.HIGH RISK: Target INR is 2.5-3.5 for patients with mechanical heart valves. Lab Interpretation Normal (test code = 16535-0) [facility]/[id number] 09:35:44 Test Item Value Reference Interpretation Comments Range Protime (test code = 13.6 See_Comment [Autom ated 5902-2) message] The system which generated this result transmitted reference range : 11.9 - 14.2 seconds. The reference range was not used to interpret this result as normal/abnormal . INR (test code = 1.06 <=5.90 6301-6) PENNY (test code = RECOMMENDED PENNY) COUMADIN/WARFARIN INR THERAPY RANGESSTANDARD DOSE: 2.0 - 3.0 Includes: PROPHYLAXIS for venous thrombosis, systemic embolization; TREATMENT for venous thrombosis and/or pulmonary embolus.HIGH RISK: Target INR is 2.5-3.5 for patients with mechanical heart valves. Lab Interpretation Normal (test code = 53037-0) [facility] CenterPROTHR[facility] TIME/[id number] 09:35:44 Test Item Value Reference Range Interpretation Comments PROTIME (BEAKER) 13.6 seconds 11.9-14.2 (test code = 759) INR (BEAKER) (test 1.06 See_Comment [Automat ed message] code = 370) The system [employer] generated this result transmitted ref erence range: <=5.90. The reference range was not used to int erpret this result as normal/abnormal . RECOMMENDED COUMADIN/WARFARIN INR THERAPY RANGESSTANDARD DOSE: 2.0 - 3.0 Includes: PROPHYLAXIS for venous thrombosis, systemic embolization; TREATMENT for venous thrombosis and/or pulmonary embolus.HIGH RISK: Target INR is 2.5-3.5 for patients with mechanical heart valves.CBC with platelet count + automated [id number] 09:24:01 Test Item Value Reference Range Interpretation Comments WBC (test code = 6690-2) 5.6 See_Comment [A utomated message] The system [employer] generated this result transmitted ref erence range: 3.5 - 10 .5 K/L. The refe rence range was not u sed to interpret this result as normal/abnor mal. RBC (test code = 789-8) 4.26 See_Comment [Au tomated message] The system [employer] generated this result transmitted ref erence range: 3.93 - 5 .22 M/L. The refe rence range was not u sed to interpret this result as normal/abnor mal. MCHC (test code = 786-4) 32.2 See_Comment [A utomated message] The system [employer] generated this result transmitted ref erence range: 32.2 - 3 5.5 GM/DL. The refe rence range was not u sed to interpret this result as normal/abnor mal. Hematocrit (test code = 37.9 % 34.1-44.9 4544-3) MCV (test code = 787-2) 89.0 fL 79.4-94.8 MCH (test code = 785-6) 28.6 pg 25.6-32.2 RDW (test code = 788-0) 14.6 % 11.7-14.4 H Platelets (test code = 311 See_Comment [Aut omated message] 777-3) The system [employer] generated this result transmitted ref erence range: 150 - 45 0 K/CU MM. The referen ce range was not u sed to interpret this result as normal/abnor mal. MPV (test code = 9.2 fL 9.4-12.3 L 72501-6) nRBC (test code = 413) 0 See_Comment [Aut omated message] The system [employer] generated this result transmitted ref erence range: 0 - 0 /1 00 WBC. The refere nce range was not u sed to interpret this result as normal/abnor mal. % Neutros (test code = 79 % 429) % Lymphs (test code = 14 % 430) % Monos (test code = 7 % 431) % Eos (test code = 432) 0 % % Baso (test code = 437) 0 % # Neutros (test code = 4.38 See_Comment [Aut omated message] 670) The system [employer] generated this result transmitted ref erence range: 1.56 - 6 .13 K/L. The refe rence range was not u sed to interpret this result as normal/abnor mal. # Lymphs (test code = 0.77 See_Comment L [Auto mated message] 414) The system [employer] generated this result transmitted ref erence range: 1.18 - 3 .74 K/L. The refe rence range was not u sed to interpret this result as normal/abnor mal. # Monos (test code = 0.37 See_Comment H [Autom ated message] 415) The system [employer] generated this result transmitted ref erence range: 0.24 - 0 .36 K/L. The refe rence range was not u sed to interpret this result as normal/abnor mal. # Eos (test code = 416) 0.01 See_Comment L [Au tomated message] The system [employer] generated this result transmitted ref erence range: 0.04 - 0 .36 K/L. The refe rence range was not u sed to interpret this result as normal/abnor mal. # Baso (test code = 417) 0.02 See_Comment [A utomated message] The system [employer] generated this result transmitted ref erence range: 0.01 - 0 .08 K/L. The refe rence range was not u sed to interpret this result as normal/abnor mal. Immature 0 % 0-1 Granulocytes-Relative (test code = 2801) Lab Interpretation (test Abnormal code = 90375-5) [facility] + automated [id number] 09:24:01 Test Item Value Reference Range Interpretation Comments WBC (test code = 6690-2) 5.6 See_Comment [A utomated message] The system [employer] generated this result transmitted ref erence range: 3.5 - 10 .5 K/L. The refe rence range was not u sed to interpret this result as normal/abnor mal. RBC (test code = 789-8) 4.26 See_Comment [Au tomated message] The system [employer] generated this result transmitted ref erence range: 3.93 - 5 .22 M/L. The refe rence range was not u sed to interpret this result as normal/abnor mal. MCHC (test code = 786-4) 32.2 See_Comment [A utomated message] The system [employer] generated this result transmitted ref erence range: 32.2 - 3 5.5 GM/DL. The refe rence range was not u sed to interpret this result as normal/abnor mal. Hematocrit (test code = 37.9 % 34.1-44.9 4544-3) MCV (test code = 787-2) 89.0 fL 79.4-94.8 MCH (test code = 785-6) 28.6 pg 25.6-32.2 RDW (test code = 788-0) 14.6 % 11.7-14.4 H Platelets (test code = 311 See_Comment [Aut omated message] 777-3) The system [employer] generated this result transmitted ref erence range: 150 - 45 0 K/CU MM. The referen ce range was not u sed to interpret this result as normal/abnor mal. MPV (test code = 9.2 fL 9.4-12.3 L 65070-4) nRBC (test code = 413) 0 See_Comment [Aut omated message] The system [employer] generated this result transmitted ref erence range: 0 - 0 /1 00 WBC. The refere nce range was not u sed to interpret this result as normal/abnor mal. % Neutros (test code = 79 % 429) % Lymphs (test code = 14 % 430) % Monos (test code = 7 % 431) % Eos (test code = 432) 0 % % Baso (test code = 437) 0 % # Neutros (test code = 4.38 See_Comment [Aut omated message] 670) The system [employer] generated this result transmitted ref erence range: 1.56 - 6 .13 K/L. The refe rence range was not u sed to interpret this result as normal/abnor mal. # Lymphs (test code = 0.77 See_Comment L [Auto mated message] 414) The system [employer] generated this result transmitted ref erence range: 1.18 - 3 .74 K/L. The refe rence range was not u sed to interpret this result as normal/abnor mal. # Monos (test code = 0.37 See_Comment H [Autom ated message] 415) The system [employer] generated this result transmitted ref erence range: 0.24 - 0 .36 K/L. The refe rence range was not u sed to interpret this result as normal/abnor mal. # Eos (test code = 416) 0.01 See_Comment L [Au tomated message] The system [employer] generated this result transmitted ref erence range: 0.04 - 0 .36 K/L. The refe rence range was not u sed to interpret this result as normal/abnor mal. # Baso (test code = 417) 0.02 See_Comment [A utomated message] The system [employer] generated this result transmitted ref erence range: 0.01 - 0 .08 K/L. The refe rence range was not u sed to interpret this result as normal/abnor mal. Immature 0 % 0-1 Granulocytes-Relative (test code = 2801) Lab Interpretation (test Abnormal code = 29136-2) [facility] with platelet count + automated [id number] 09:24:01 Test Item Value Reference Range Interpretation Comments WBC (test code = 6690-2) 5.6 See_Comment [A utomated message] The system [employer] generated this result transmitted ref erence range: 3.5 - 10 .5 K/L. The refe rence range was not u sed to interpret this result as normal/abnor mal. RBC (test code = 789-8) 4.26 See_Comment [Au tomated message] The system [employer] generated this result transmitted ref erence range: 3.93 - 5 .22 M/L. The refe rence range was not u sed to interpret this result as normal/abnor mal. MCHC (test code = 786-4) 32.2 See_Comment [A utomated message] The system [employer] generated this result transmitted ref erence range: 32.2 - 3 5.5 GM/DL. The refe rence range was not u sed to interpret this result as normal/abnor mal. Hematocrit (test code = 37.9 % 34.1-44.9 4544-3) MCV (test code = 787-2) 89.0 fL 79.4-94.8 MCH (test code = 785-6) 28.6 pg 25.6-32.2 RDW (test code = 788-0) 14.6 % 11.7-14.4 H Platelets (test code = 311 See_Comment [Aut omated message] 237-3) The system [employer] generated this result transmitted ref erence range: 150 - 45 0 K/CU MM. The referen ce range was not u sed to interpret this result as normal/abnor mal. MPV (test code = 9.2 fL 9.4-12.3 L 68816-5) nRBC (test code = 413) 0 See_Comment [Aut omated message] The system [employer] generated this result transmitted ref erence range: 0 - 0 /1 00 WBC. The refere nce range was not u sed to interpret this result as normal/abnor mal. % Neutros (test code = 79 % 429) % Lymphs (test code = 14 % 430) % Monos (test code = 7 % 431) % Eos (test code = 432) 0 % % Baso (test code = 437) 0 % # Neutros (test code = 4.38 See_Comment [Aut omated message] 670) The system [employer] generated this result transmitted ref erence range: 1.56 - 6 .13 K/L. The refe rence range was not u sed to interpret this result as normal/abnor mal. # Lymphs (test code = 0.77 See_Comment L [Auto mated message] 414) The system [employer] generated this result transmitted ref erence range: 1.18 - 3 .74 K/L. The refe rence range was not u sed to interpret this result as normal/abnor mal. # Monos (test code = 0.37 See_Comment H [Autom ated message] 415) The system [employer] generated this result transmitted ref erence range: 0.24 - 0 .36 K/L. The refe rence range was not u sed to interpret this result as normal/abnor mal. # Eos (test code = 416) 0.01 See_Comment L [Au tomated message] The system [employer] generated this result transmitted ref erence range: 0.04 - 0 .36 K/L. The refe rence range was not u sed to interpret this result as normal/abnor mal. # Baso (test code = 417) 0.02 See_Comment [A utomated message] The system [employer] generated this result transmitted ref erence range: 0.01 - 0 .08 K/L. The refe rence range was not u sed to interpret this result as normal/abnor mal. Immature 0 % 0-1 Granulocytes-Relative (test code = 2801) Lab Interpretation (test Abnormal code = 58751-6) [facility] with platelet count + automated [id number] 09:24:01 Test Item Value Reference Range Interpretation Comments WBC (test code = 6690-2) 5.6 See_Comment [A utomated message] The system [employer] generated this result transmitted ref erence range: 3.5 - 10 .5 K/L. The refe rence range was not u sed to interpret this result as normal/abnor mal. RBC (test code = 789-8) 4.26 See_Comment [Au tomated message] The system [employer] generated this result transmitted ref erence range: 3.93 - 5 .22 M/L. The refe rence range was not u sed to interpret this result as normal/abnor mal. MCHC (test code = 786-4) 32.2 See_Comment [A utomated message] The system [employer] generated this result transmitted ref erence range: 32.2 - 3 5.5 GM/DL. The refe rence range was not u sed to interpret this result as normal/abnor mal. Hematocrit (test code = 37.9 % 34.1-44.9 4544-3) MCV (test code = 787-2) 89.0 fL 79.4-94.8 MCH (test code = 785-6) 28.6 pg 25.6-32.2 RDW (test code = 788-0) 14.6 % 11.7-14.4 H Platelets (test code = 311 See_Comment [Aut omated message] 777-3) The system [employer] generated this result transmitted ref erence range: 150 - 45 0 K/CU MM. The referen ce range was not u sed to interpret this result as normal/abnor mal. MPV (test code = 9.2 fL 9.4-12.3 L 75486-8) nRBC (test code = 413) 0 See_Comment [Aut omated message] The system [employer] generated this result transmitted ref erence range: 0 - 0 /1 00 WBC. The refere nce range was not u sed to interpret this result as normal/abnor mal. % Neutros (test code = 79 % 429) % Lymphs (test code = 14 % 430) % Monos (test code = 7 % 431) % Eos (test code = 432) 0 % % Baso (test code = 437) 0 % # Neutros (test code = 4.38 See_Comment [Aut omated message] 670) The system [employer] generated this result transmitted ref erence range: 1.56 - 6 .13 K/L. The refe rence range was not u sed to interpret this result as normal/abnor mal. # Lymphs (test code = 0.77 See_Comment L [Auto mated message] 414) The system [employer] generated this result transmitted ref erence range: 1.18 - 3 .74 K/L. The refe rence range was not u sed to interpret this result as normal/abnor mal. # Monos (test code = 0.37 See_Comment H [Autom ated message] 415) The system [employer] generated this result transmitted ref erence range: 0.24 - 0 .36 K/L. The refe rence range was not u sed to interpret this result as normal/abnor mal. # Eos (test code = 416) 0.01 See_Comment L [Au tomated message] The system [employer] generated this result transmitted ref erence range: 0.04 - 0 .36 K/L. The refe rence range was not u sed to interpret this result as normal/abnor mal. # Baso (test code = 417) 0.02 See_Comment [A utomated message] The system [employer] generated this result transmitted ref erence range: 0.01 - 0 .08 K/L. The refe rence range was not u sed to interpret this result as normal/abnor mal. Immature 0 % 0-1 Granulocytes-Relative (test code = 2801) Lab Interpretation (test Abnormal code = 66194-0) [facility] with platelet count + automated [id number] 09:24:01 Test Item Value Reference Range Interpretation Comments WBC (test code = 6690-2) 5.6 See_Comment [A utomated message] The system [employer] generated this result transmitted ref erence range: 3.5 - 10 .5 K/L. The refe rence range was not u sed to interpret this result as normal/abnor mal. RBC (test code = 789-8) 4.26 See_Comment [Au tomated message] The system [employer] generated this result transmitted ref erence range: 3.93 - 5 .22 M/L. The refe rence range was not u sed to interpret this result as normal/abnor mal. MCHC (test code = 786-4) 32.2 See_Comment [A utomated message] The system [employer] generated this result transmitted ref erence range: 32.2 - 3 5.5 GM/DL. The refe rence range was not u sed to interpret this result as normal/abnor mal. Hematocrit (test code = 37.9 % 34.1-44.9 4544-3) MCV (test code = 787-2) 89.0 fL 79.4-94.8 MCH (test code = 785-6) 28.6 pg 25.6-32.2 RDW (test code = 788-0) 14.6 % 11.7-14.4 H Platelets (test code = 311 See_Comment [Aut omated message] 777-3) The system [employer] generated this result transmitted ref erence range: 150 - 45 0 K/CU MM. The referen ce range was not u sed to interpret this result as normal/abnor mal. MPV (test code = 9.2 fL 9.4-12.3 L 64400-5) nRBC (test code = 413) 0 See_Comment [Aut omated message] The system [employer] generated this result transmitted ref erence range: 0 - 0 /1 00 WBC. The refere nce range was not u sed to interpret this result as normal/abnor mal. % Neutros (test code = 79 % 429) % Lymphs (test code = 14 % 430) % Monos (test code = 7 % 431) % Eos (test code = 432) 0 % % Baso (test code = 437) 0 % # Neutros (test code = 4.38 See_Comment [Aut omated message] 670) The system [employer] generated this result transmitted ref erence range: 1.56 - 6 .13 K/L. The refe rence range was not u sed to interpret this result as normal/abnor mal. # Lymphs (test code = 0.77 See_Comment L [Auto mated message] 414) The system [employer] generated this result transmitted ref erence range: 1.18 - 3 .74 K/L. The refe rence range was not u sed to interpret this result as normal/abnor mal. # Monos (test code = 0.37 See_Comment H [Autom ated message] 415) The system [employer] generated this result transmitted ref erence range: 0.24 - 0 .36 K/L. The refe rence range was not u sed to interpret this result as normal/abnor mal. # Eos (test code = 416) 0.01 See_Comment L [Au tomated message] The system [employer] generated this result transmitted ref erence range: 0.04 - 0 .36 K/L. The refe rence range was not u sed to interpret this result as normal/abnor mal. # Baso (test code = 417) 0.02 See_Comment [A utomated message] The system [employer] generated this result transmitted ref erence range: 0.01 - 0 .08 K/L. The refe rence range was not u sed to interpret this result as normal/abnor mal. Immature 0 % 0-1 Granulocytes-Relative (test code = 2801) Lab Interpretation (test Abnormal code = 18925-5) [facility] with platelet count + automated [id number] 09:24:01 Test Item Value Reference Range Interpretation Comments WBC (test code = 6690-2) 5.6 See_Comment [A utomated message] The system [employer] generated this result transmitted ref erence range: 3.5 - 10 .5 K/L. The refe rence range was not u sed to interpret this result as normal/abnor mal. RBC (test code = 789-8) 4.26 See_Comment [Au tomated message] The system [employer] generated this result transmitted ref erence range: 3.93 - 5 .22 M/L. The refe rence range was not u sed to interpret this result as normal/abnor mal. MCHC (test code = 786-4) 32.2 See_Comment [A utomated message] The system [employer] generated this result transmitted ref erence range: 32.2 - 3 5.5 GM/DL. The refe rence range was not u sed to interpret this result as normal/abnor mal. Hematocrit (test code = 37.9 % 34.1-44.9 4544-3) MCV (test code = 787-2) 89.0 fL 79.4-94.8 MCH (test code = 785-6) 28.6 pg 25.6-32.2 RDW (test code = 788-0) 14.6 % 11.7-14.4 H Platelets (test code = 311 See_Comment [Aut omated message] 777-3) The system [employer] generated this result transmitted ref erence range: 150 - 45 0 K/CU MM. The referen ce range was not u sed to interpret this result as normal/abnor mal. MPV (test code = 9.2 fL 9.4-12.3 L 92731-7) nRBC (test code = 413) 0 See_Comment [Aut omated message] The system [employer] generated this result transmitted ref erence range: 0 - 0 /1 00 WBC. The refere nce range was not u sed to interpret this result as normal/abnor mal. % Neutros (test code = 79 % 429) % Lymphs (test code = 14 % 430) % Monos (test code = 7 % 431) % Eos (test code = 432) 0 % % Baso (test code = 437) 0 % # Neutros (test code = 4.38 See_Comment [Aut omated message] 670) The system [employer] generated this result transmitted ref erence range: 1.56 - 6 .13 K/L. The refe rence range was not u sed to interpret this result as normal/abnor mal. # Lymphs (test code = 0.77 See_Comment L [Auto mated message] 414) The system [employer] generated this result transmitted ref erence range: 1.18 - 3 .74 K/L. The refe rence range was not u sed to interpret this result as normal/abnor mal. # Monos (test code = 0.37 See_Comment H [Autom ated message] 415) The system [employer] generated this result transmitted ref erence range: 0.24 - 0 .36 K/L. The refe rence range was not u sed to interpret this result as normal/abnor mal. # Eos (test code = 416) 0.01 See_Comment L [Au tomated message] The system [employer] generated this result transmitted ref erence range: 0.04 - 0 .36 K/L. The refe rence range was not u sed to interpret this result as normal/abnor mal. # Baso (test code = 417) 0.02 See_Comment [A utomated message] The system [employer] generated this result transmitted ref erence range: 0.01 - 0 .08 K/L. The refe rence range was not u sed to interpret this result as normal/abnor mal. Immature 0 % 0-1 Granulocytes-Relative (test code = 2801) Lab Interpretation (test Abnormal code = 68792-7) [facility] with platelet count + automated [id number] 09:24:01 Test Item Value Reference Range Interpretation Comments WBC (test code = 6690-2) 5.6 See_Comment [A utomated message] The system [employer] generated this result transmitted ref erence range: 3.5 - 10 .5 K/L. The refe rence range was not u sed to interpret this result as normal/abnor mal. RBC (test code = 789-8) 4.26 See_Comment [Au tomated message] The system [employer] generated this result transmitted ref erence range: 3.93 - 5 .22 M/L. The refe rence range was not u sed to interpret this result as normal/abnor mal. MCHC (test code = 786-4) 32.2 See_Comment [A utomated message] The system [employer] generated this result transmitted ref erence range: 32.2 - 3 5.5 GM/DL. The refe rence range was not u sed to interpret this result as normal/abnor mal. Hematocrit (test code = 37.9 % 34.1-44.9 4544-3) MCV (test code = 787-2) 89.0 fL 79.4-94.8 MCH (test code = 785-6) 28.6 pg 25.6-32.2 RDW (test code = 788-0) 14.6 % 11.7-14.4 H Platelets (test code = 311 See_Comment [Aut omated message] 777-3) The system [employer] generated this result transmitted ref erence range: 150 - 45 0 K/CU MM. The referen ce range was not u sed to interpret this result as normal/abnor mal. MPV (test code = 9.2 fL 9.4-12.3 L 13551-0) nRBC (test code = 413) 0 See_Comment [Aut omated message] The system [employer] generated this result transmitted ref erence range: 0 - 0 /1 00 WBC. The refere nce range was not u sed to interpret this result as normal/abnor mal. % Neutros (test code = 79 % 429) % Lymphs (test code = 14 % 430) % Monos (test code = 7 % 431) % Eos (test code = 432) 0 % % Baso (test code = 437) 0 % # Neutros (test code = 4.38 See_Comment [Aut omated message] 670) The system [employer] generated this result transmitted ref erence range: 1.56 - 6 .13 K/L. The refe rence range was not u sed to interpret this result as normal/abnor mal. # Lymphs (test code = 0.77 See_Comment L [Auto mated message] 414) The system [employer] generated this result transmitted ref erence range: 1.18 - 3 .74 K/L. The refe rence range was not u sed to interpret this result as normal/abnor mal. # Monos (test code = 0.37 See_Comment H [Autom ated message] 415) The system [employer] generated this result transmitted ref erence range: 0.24 - 0 .36 K/L. The refe rence range was not u sed to interpret this result as normal/abnor mal. # Eos (test code = 416) 0.01 See_Comment L [Au tomated message] The system [employer] generated this result transmitted ref erence range: 0.04 - 0 .36 K/L. The refe rence range was not u sed to interpret this result as normal/abnor mal. # Baso (test code = 417) 0.02 See_Comment [A utomated message] The system [employer] generated this result transmitted ref erence range: 0.01 - 0 .08 K/L. The refe rence range was not u sed to interpret this result as normal/abnor mal. Immature 0 % 0-1 Granulocytes-Relative (test code = 2801) Lab Interpretation (test Abnormal code = 58333-2) [facility] with platelet count + automated [id number] 09:24:01 Test Item Value Reference Range Interpretation Comments WBC (test code = 6690-2) 5.6 See_Comment [A utomated message] The system [employer] generated this result transmitted ref erence range: 3.5 - 10 .5 K/L. The refe rence range was not u sed to interpret this result as normal/abnor mal. RBC (test code = 789-8) 4.26 See_Comment [Au tomated message] The system [employer] generated this result transmitted ref erence range: 3.93 - 5 .22 M/L. The refe rence range was not u sed to interpret this result as normal/abnor mal. MCHC (test code = 786-4) 32.2 See_Comment [A utomated message] The system [employer] generated this result transmitted ref erence range: 32.2 - 3 5.5 GM/DL. The refe rence range was not u sed to interpret this result as normal/abnor mal. Hematocrit (test code = 37.9 % 34.1-44.9 4544-3) MCV (test code = 787-2) 89.0 fL 79.4-94.8 MCH (test code = 785-6) 28.6 pg 25.6-32.2 RDW (test code = 788-0) 14.6 % 11.7-14.4 H Platelets (test code = 311 See_Comment [Aut omated message] 577-3) The system [employer] generated this result transmitted ref erence range: 150 - 45 0 K/CU MM. The referen ce range was not u sed to interpret this result as normal/abnor mal. MPV (test code = 9.2 fL 9.4-12.3 L 41816-0) nRBC (test code = 413) 0 See_Comment [Aut omated message] The system [employer] generated this result transmitted ref erence range: 0 - 0 /1 00 WBC. The refere nce range was not u sed to interpret this result as normal/abnor mal. % Neutros (test code = 79 % 429) % Lymphs (test code = 14 % 430) % Monos (test code = 7 % 431) % Eos (test code = 432) 0 % % Baso (test code = 437) 0 % # Neutros (test code = 4.38 See_Comment [Aut omated message] 670) The system [employer] generated this result transmitted ref erence range: 1.56 - 6 .13 K/L. The refe rence range was not u sed to interpret this result as normal/abnor mal. # Lymphs (test code = 0.77 See_Comment L [Auto mated message] 414) The system [employer] generated this result transmitted ref erence range: 1.18 - 3 .74 K/L. The refe rence range was not u sed to interpret this result as normal/abnor mal. # Monos (test code = 0.37 See_Comment H [Autom ated message] 415) The system [employer] generated this result transmitted ref erence range: 0.24 - 0 .36 K/L. The refe rence range was not u sed to interpret this result as normal/abnor mal. # Eos (test code = 416) 0.01 See_Comment L [Au tomated message] The system [employer] generated this result transmitted ref erence range: 0.04 - 0 .36 K/L. The refe rence range was not u sed to interpret this result as normal/abnor mal. # Baso (test code = 417) 0.02 See_Comment [A utomated message] The system [employer] generated this result transmitted ref erence range: 0.01 - 0 .08 K/L. The refe rence range was not u sed to interpret this result as normal/abnor mal. Immature 0 % 0-1 Granulocytes-Relative (test code = 2801) Lab Interpretation (test Abnormal code = 10558-1) [facility] with platelet count + automated [id number] 09:24:01 Test Item Value Reference Range Interpretation Comments WBC (test code = 6690-2) 5.6 See_Comment [A utomated message] The system [employer] generated this result transmitted ref erence range: 3.5 - 10 .5 K/L. The refe rence range was not u sed to interpret this result as normal/abnor mal. RBC (test code = 789-8) 4.26 See_Comment [Au tomated message] The system [employer] generated this result transmitted ref erence range: 3.93 - 5 .22 M/L. The refe rence range was not u sed to interpret this result as normal/abnor mal. MCHC (test code = 786-4) 32.2 See_Comment [A utomated message] The system [employer] generated this result transmitted ref erence range: 32.2 - 3 5.5 GM/DL. The refe rence range was not u sed to interpret this result as normal/abnor mal. Hematocrit (test code = 37.9 % 34.1-44.9 4544-3) MCV (test code = 787-2) 89.0 fL 79.4-94.8 MCH (test code = 785-6) 28.6 pg 25.6-32.2 RDW (test code = 788-0) 14.6 % 11.7-14.4 H Platelets (test code = 311 See_Comment [Aut omated message] 777-3) The system [employer] generated this result transmitted ref erence range: 150 - 45 0 K/CU MM. The referen ce range was not u sed to interpret this result as normal/abnor mal. MPV (test code = 9.2 fL 9.4-12.3 L 35786-5) nRBC (test code = 413) 0 See_Comment [Aut omated message] The system [employer] generated this result transmitted ref erence range: 0 - 0 /1 00 WBC. The refere nce range was not u sed to interpret this result as normal/abnor mal. % Neutros (test code = 79 % 429) % Lymphs (test code = 14 % 430) % Monos (test code = 7 % 431) % Eos (test code = 432) 0 % % Baso (test code = 437) 0 % # Neutros (test code = 4.38 See_Comment [Aut omated message] 670) The system [employer] generated this result transmitted ref erence range: 1.56 - 6 .13 K/L. The refe rence range was not u sed to interpret this result as normal/abnor mal. # Lymphs (test code = 0.77 See_Comment L [Auto mated message] 414) The system [employer] generated this result transmitted ref erence range: 1.18 - 3 .74 K/L. The refe rence range was not u sed to interpret this result as normal/abnor mal. # Monos (test code = 0.37 See_Comment H [Autom ated message] 415) The system [employer] generated this result transmitted ref erence range: 0.24 - 0 .36 K/L. The refe rence range was not u sed to interpret this result as normal/abnor mal. # Eos (test code = 416) 0.01 See_Comment L [Au tomated message] The system [employer] generated this result transmitted ref erence range: 0.04 - 0 .36 K/L. The refe rence range was not u sed to interpret this result as normal/abnor mal. # Baso (test code = 417) 0.02 See_Comment [A utomated message] The system [employer] generated this result transmitted ref erence range: 0.01 - 0 .08 K/L. The refe rence range was not u sed to interpret this result as normal/abnor mal. Immature 0 % 0-1 Granulocytes-Relative (test code = 2801) Lab Interpretation (test Abnormal code = 62278-1) [facility] with platelet count + automated [id number] 09:24:01 Test Item Value Reference Range Interpretation Comments WBC (test code = 6690-2) 5.6 See_Comment [A utomated message] The system [employer] generated this result transmitted ref erence range: 3.5 - 10 .5 K/L. The refe rence range was not u sed to interpret this result as normal/abnor mal. RBC (test code = 789-8) 4.26 See_Comment [Au tomated message] The system [employer] generated this result transmitted ref erence range: 3.93 - 5 .22 M/L. The refe rence range was not u sed to interpret this result as normal/abnor mal. MCHC (test code = 786-4) 32.2 See_Comment [A utomated message] The system [employer] generated this result transmitted ref erence range: 32.2 - 3 5.5 GM/DL. The refe rence range was not u sed to interpret this result as normal/abnor mal. Hematocrit (test code = 37.9 % 34.1-44.9 4544-3) MCV (test code = 787-2) 89.0 fL 79.4-94.8 MCH (test code = 785-6) 28.6 pg 25.6-32.2 RDW (test code = 788-0) 14.6 % 11.7-14.4 H Platelets (test code = 311 See_Comment [Aut omated message] 777-3) The system [employer] generated this result transmitted ref erence range: 150 - 45 0 K/CU MM. The referen ce range was not u sed to interpret this result as normal/abnor mal. MPV (test code = 9.2 fL 9.4-12.3 L 84522-0) nRBC (test code = 413) 0 See_Comment [Aut omated message] The system [employer] generated this result transmitted ref erence range: 0 - 0 /1 00 WBC. The refere nce range was not u sed to interpret this result as normal/abnor mal. % Neutros (test code = 79 % 429) % Lymphs (test code = 14 % 430) % Monos (test code = 7 % 431) % Eos (test code = 432) 0 % % Baso (test code = 437) 0 % # Neutros (test code = 4.38 See_Comment [Aut omated message] 670) The system [employer] generated this result transmitted ref erence range: 1.56 - 6 .13 K/L. The refe rence range was not u sed to interpret this result as normal/abnor mal. # Lymphs (test code = 0.77 See_Comment L [Auto mated message] 414) The system [employer] generated this result transmitted ref erence range: 1.18 - 3 .74 K/L. The refe rence range was not u sed to interpret this result as normal/abnor mal. # Monos (test code = 0.37 See_Comment H [Autom ated message] 415) The system [employer] generated this result transmitted ref erence range: 0.24 - 0 .36 K/L. The refe rence range was not u sed to interpret this result as normal/abnor mal. # Eos (test code = 416) 0.01 See_Comment L [Au tomated message] The system [employer] generated this result transmitted ref erence range: 0.04 - 0 .36 K/L. The refe rence range was not u sed to interpret this result as normal/abnor mal. # Baso (test code = 417) 0.02 See_Comment [A utomated message] The system [employer] generated this result transmitted ref erence range: 0.01 - 0 .08 K/L. The refe rence range was not u sed to interpret this result as normal/abnor mal. Immature 0 % 0-1 Granulocytes-Relative (test code = 2801) Lab Interpretation (test Abnormal code = 48276-8) [facility] W/PLT COUNT & AUTO [id number] 09:24:01 Test Item Value Reference Range Interpretation Comments WHITE BLOOD CELL COUNT (BEAKER) 5.6 K/ L 3.5-10.5 (test code = 775) RED BLOOD CELL COUNT (BEAKER) 4.26 M/ L 3.93-5.22 (test code = 761) HEMOGLOBIN (BEAKER) (test code = 12.2 GM/DL 11.2-15.7 410) HEMATOCRIT (BEAKER) (test code = 37.9 % 34.1-44.9 411) MEAN CORPUSCULAR VOLUME (BEAKER) 89.0 fL 79.4-94.8 (test code = 753) MEAN CORPUSCULAR HEMOGLOBIN 28.6 pg 25.6-32.2 (BEAKER) (test code = 751) MEAN CORPUSCULAR HEMOGLOBIN CONC 32.2 GM/DL 32.2-35.5 (BEAKER) (test code = 752) RED CELL DISTRIBUTION WIDTH 14.6 % 11.7-14.4 H (BEAKER) (test code = 412) PLATELET COUNT (BEAKER) (test 311 K/CU MM 150-450 code = 756) MEAN PLATELET VOLUME (BEAKER) 9.2 fL 9.4-12.3 L (test code = 754) NUCLEATED RED BLOOD CELLS 0 /100 WBC 0-0 (BEAKER) (test code = 413) NEUTROPHILS RELATIVE PERCENT 79 % (BEAKER) (test code = 429) LYMPHOCYTES RELATIVE PERCENT 14 % (BEAKER) (test code = 430) MONOCYTES RELATIVE PERCENT 7 % (BEAKER) (test code = 431) EOSINOPHILS RELATIVE PERCENT 0 % (BEAKER) (test code = 432) BASOPHILS RELATIVE PERCENT 0 % (BEAKER) (test code = 437) NEUTROPHILS ABSOLUTE COUNT 4.38 K/ L 1.56-6.13 (BEAKER) (test code = 670) LYMPHOCYTES ABSOLUTE COUNT 0.77 K/ L 1.18-3.74 L (BEAKER) (test code = 414) MONOCYTES ABSOLUTE COUNT (BEAKER) 0.37 K/ L 0.24-0.36 H (test code = 415) EOSINOPHILS ABSOLUTE COUNT 0.01 K/ L 0.04-0.36 L (BEAKER) (test code = 416) BASOPHILS ABSOLUTE COUNT (BEAKER) 0.02 K/ L 0.01-0.08 (test code = 417) IMMATURE GRANULOCYTES-RELATIVE 0 % 0-1 PERCENT (BEAKER) (test code = 2801) BASIC METABOLIC [id number] 11:44:04 Test Item Value Reference Range Interpretation Comments SODIUM (BEAKER) 143 meq/L 135-148 (test code = 381) POTASSIUM (BEAKER) 3.6 meq/L 3.6-5.5 (test code = 379) CHLORIDE (BEAKER) 107 meq/L 98-106 H (test code = 382) CO2 (BEAKER) (test 23 meq/L 20-29 code = 355) BLOOD UREA NITROGEN 15 mg/dL 10-26 (BEAKER) (test code = 354) CREATININE (BEAKER) 0.95 mg/dL 0.50-1.20 (test code = 358) GLUCOSE RANDOM 77 mg/dL 70-110 (BEAKER) (test code = 652) CALCIUM (BEAKER) 9.0 mg/dL 8.5-10.5 (test code = 697) EGFR (BEAKER) (test 69 mL/min/1.73 ESTIMA PERLITA GFR IS code = 1092) sq m NOT ACCURATE CREATININE CLEARANCE IN PREDICTING GLOMERULAR FILTRATION RATE . ESTIMATED GFR I S NOT APPLICABLE FOR DIALYSIS PATIEN TS. Electrician Constructor Supervisor ID - DSENSONOperator ID - DSENSONOperator ID - DSENSONOperator ID - DSENSONOperator ID - DSENSONOperator ID - DSENSONOperator ID - DSENSONOperator ID - DSENSONOperator ID - DSENSONOperator ID - DSENSONOperator ID - DSENSONOperator ID - DSENSONRAD, KNEE, 1 OR 2 VIEWS, [id number] 11:39:00 Reason for exam:->[facility] : 1945 Sex: FFINAL REPORT Bilateral knee series, 2 views each. History: Knee pain. Findings:The soft tissues are normal. Bone mineralization is normal. Status post prior right knee total arthroplasty. Prosthetic components are in anatomic alignment. There is no evidence of fracture or dislocation. There are no erosions or periosteal reaction. There is moderate lateral compartment joint spacenarrowing with osteophytosis. IMPRESSION: 1. Prior right knee replacement. No acute osseous abnormality.2. Left knee DJD. Signed: Shayne Brown Verified Date/Time: 07/01/2021 11:39:36 ReadingLocation: [facility] Radiology Reading Room Electronically signed by: SHAYNE BROWN M.D. on :39 AMRAD, KNEE, 1 OR 2 VIEWS, [id number] 11:39:00Reason for exam:->pain [facility] : 1945 Sex: FFINAL REPORT Bilateral knee series, 2 views each. History: Knee pain. Findings:The soft tissues are normal. Bone mineralization is normal. Status post prior right knee total arthroplasty. Prosthetic components are in anatomic alignment. There is no evidence of fracture or dislocation. There are no erosions or periosteal reaction. There is moderate lateral compartment joint spacenarrowing with osteophytosis. IMPRESSION: 1. Prior right knee replacement. No acute osseous abnormality.2. Left knee DJD. Signed: Shayne Brown MDReport Verified Date/Time: 07/01/2021 11:39:36 ReadingLocation: [facility] Radiology Reading Room Electronically signed by: SHAYNE BROWN M.D. on :39 AMCBC W/PLT COUNT & AUTO [id number] 11:28:20 Test Item Value Reference Range Interpretation Comments WHITE BLOOD CELL COUNT (BEAKER) 10.2 K/ L 4.0-10.0 H (test code = 775) RED BLOOD CELL COUNT (BEAKER) 3.93 M/ L 4.00-5.00 L (test code = 761) HEMOGLOBIN (BEAKER) (test code = 11.2 GM/DL 12.0-15.5 L 410) HEMATOCRIT (BEAKER) (test code = 35.3 % 36.0-46.0 L 411) MEAN CORPUSCULAR VOLUME (BEAKER) 89.8 fL 82.0-99.0 (test code = 753) MEAN CORPUSCULAR HEMOGLOBIN 28.5 pg 27.0-33.0 (BEAKER) (test code = 751) MEAN CORPUSCULAR HEMOGLOBIN CONC 31.7 GM/DL 32.0-36.0 L (BEAKER) (test code = 752) RED CELL DISTRIBUTION WIDTH 13.8 % 12.0-15.0 (BEAKER) (test code = 412) PLATELET COUNT (BEAKER) (test 418 K/CU MM 150-430 code = 756) MEAN PLATELET VOLUME (BEAKER) 9.3 fL 6.0-11.5 (test code = 754) NUCLEATED RED BLOOD CELLS 0 /100 WBC 0-0 (BEAKER) (test code = 413) NEUTROPHILS RELATIVE PERCENT 69 % (BEAKER) (test code = 429) LYMPHOCYTES RELATIVE PERCENT 20 % (BEAKER) (test code = 430) MONOCYTES RELATIVE PERCENT 8 % (BEAKER) (test code = 431) EOSINOPHILS RELATIVE PERCENT 2 % (BEAKER) (test code = 432) BASOPHILS RELATIVE PERCENT 1 % (BEAKER) (test code = 437) NEUTROPHILS ABSOLUTE COUNT 7.02 K/ L 1.80-8.00 (BEAKER) (test code = 670) LYMPHOCYTES ABSOLUTE COUNT 2.02 K/ L 1.48-4.50 (BEAKER) (test code = 414) MONOCYTES ABSOLUTE COUNT (BEAKER) 0.83 K/ L 0.00-1.30 (test code = 415) EOSINOPHILS ABSOLUTE COUNT 0.20 K/ L 0.00-0.50 (BEAKER) (test code = 416) BASOPHILS ABSOLUTE COUNT (BEAKER) 0.05 K/ L 0.00-0.20 (test code = 417) IMMATURE GRANULOCYTES-RELATIVE 0 % 0-0 PERCENT (BEAKER) (test code = 2801) Blood Culture #[id number] 10:00:18 Test Item Value Reference Range Interpretation Comments Result (test code = No growth in 5 days 6463-4) [facility][id number] 10:00:18 Test Item Value Reference Range Interpretation Comments Result (test code = No growth in 5 days 6463-4) [facility] Culture # 10:00:18 Test Item Value Reference Range Interpretation Comments Result (test code = No growth in 5 days 6463-4) [facility] Culture # 10:00:18 Test Item Value Reference Range Interpretation Comments Result (test code = No growth in 5 days 6463-4) [facility] Culture # 10:00:18 Test Item Value Reference Range Interpretation Comments Result (test code = No growth in 5 days 6463-4) [facility] Culture # 10:00:18 Test Item Value Reference Range Interpretation Comments Result (test code = No growth in 5 days 6463-4) [facility] Culture # 10:00:18 Test Item Value Reference Range Interpretation Comments Result (test code = No growth in 5 days 6463-4) [facility] Culture # 10:00:18 Test Item Value Reference Range Interpretation Comments Result (test code = No growth in 5 days 6463-4) [facility] Culture # 10:00:18 Test Item Value Reference Range Interpretation Comments Result (test code = No growth in 5 days 6463-4) [facility] [id number] 10:00:18 Test Item Value Reference Range Interpretation Comments CULTURE (BEAKER) (test No growth in 5 days code = 1095) BLOOD [id number] 10:00:18 Test Item Value Reference Range Interpretation Comments CULTURE (BEAKER) (test No growth in 5 days code = 1095) TISSUE [id number] 10:04:38Surgical Pathology Report Case: [id number] Authorizing Provider: Cristobal Espinoza MD Collected: 06/16/2021 09:50 AM Ordering Location: [facility] Med Surg 5th Floor Received: 06/16/2021 10:07 AM Patholo gist: David Kay MD Specimen: Lung, Right, lung biopsy LUNG, RIGHT, BIOPSY: - ADENOCARCINOMA. Signing Pathologist Direct Phone Line: [phone] signed by David Kay MD on 06/18/2021 at 10:04 AMThe histologic and immunohistochemical profile is compatible with adenocarcinoma of lung primary.75055, 04744, 80432 x 3Bronchogenic cancer of right lungRight lungA. Receivedin a formalin-filled container labeled with the patient's information "right lung biopsy" are multiple soft tissue fragments ranging in length from 0.2 to 0.6 cm in greatest length. The specimen is enti rely submitted in two cassettes. /plPerformedTTF-1: Positive in the tumor cells.Napsin: Positive in the tumor cells.CK5/6: Negative in the tumor cells.p63: Rare weak staining of the tumor cells is seen; most tumor cells are negative.The interpretation of this case included the use of immunohistochemi stry or special stains.Control Slides Examined: In-house known positive controls were evaluated along with the test tissue. These control slides run alongside of the patients sample show appropriate staining. Internal positive and negative controls when available are evaluated Immunohistochemistry technical testing was performed at [facility], Pathology Laboratory where it was developed and its performance characteristics were determined. It has not been cleared or approved by the U.S. Food and Drug Administration. The FDA has determined that such clearance or approval is not necessary. The test is used for clinical purposes. It should not be regarded as investigational or for research. This laboratory is certified under the Clinical Laboratory Improvement Amendments of 1988(CLIA-88) as qualified to perform high complexity clinical laboratory testing.[facility], Department of Pathology, [address] [place] [address], [facility], Department of Pathology, [address] [place] [address], [facility], [address] [place] [address], [facility] culture 2021-06-16 11:51:16 Test Item Value Reference Range Interpretation Comments Result (test code = 6463-4) No [facility] [id number] 11:51:16 Test Item Value Reference Range Interpretation Comments Result (test code = 6463-4) No growth [facility]2022-01-11 11:51:16 Test Item Value Reference Range Interpretation Comments Result (test code = 6463-4) No growth [facility] [id number] 11:51:16 Test Item Value Reference Range Interpretation Comments Result (test code = 6463-4) No growth [facility] [id number] 11:51:16 Test Item Value Reference Range Interpretation Comments Result (test code = 6463-4) No growth [facility] [id number] 11:51:16 Test Item Value Reference Range Interpretation Comments Result (test code = 6463-4) No growth [facility]2022-01-11 11:51:16 Test Item Value Reference Range Interpretation Comments Result (test code = 6463-4) No growth [facility]2022-01-11 11:51:16 Test Item Value Reference Range Interpretation Comments Result (test code = 6463-4) No growth [facility] [id number] 11:51:16 Test Item Value Reference Range Interpretation Comments Result (test code = 6463-4) No growth [facility]ST, 1 VIEW, NON [id number] 10:56:00Reason for exam:->post Right lung biopsyShould this be performed at the bedside?->Yes[facility] KIYAASHLIE ABURTO KENYETTA : 1945 Sex: FFINAL REPORT CHEST AP PORTABLE ERECT History provided: Delayed chest x- ray after CT-guided right lung needle biopsy Radiograph shows no evidence of pneumothorax. Large right perihilar mass evident. Lungs otherwise clear. Signed: Rai Rinconeport Verified Date/Time: :56:50 Reading Location: [facility] Radiology Reading Room Electronically signed by: RAI RINCON on 0 06/16/2021 10:56 AMCT, BIOPSY, [id number] 09:57:00Reason for exam:->Right lung massCH[facility] : 1945 Sex: FFINAL REPORT CT-GUIDED RIGHT LUNG MASS BIOPSY History provided: 5.0 x 4.3 x 5.3cm right perihilar lung mass PROCEDURE: Informed consent was obtained. Patient's medication list wasreviewed. Timeout procedure was performed. All elements of strict sterile barrier were employed, including cap, mask, sterile gloves, and sterile drape. Skin was prepped with ChloraPrep. 1% Xylocaine an esthesia utilized. Moderate conscious sedation was achieved utilizing 1 mg IV Versed and 50 ug IV Fentanyl while continuously monitoring cardiorespiratory function. The patient was monitored by the radiology nurse. Sedation time was 16 minutes. Patient was scanned in the supine position and appropriate site for biopsy chosen. Under CT guidance, from right anterior approach, puncture was performed with a 19-gauge guiding needle. 3 coaxial 20-gauge core needle biopsies were obtained and specimens placed in formalin. Upon removal of the guiding needle, 3 cc of the patient's blood was injected to seal the tract. Immediate postbiopsy CT was performed. Supervision and interpretation: Guiding needle position appears excellent. No immediate pneumothorax. Delayed postprocedure chest x-ray will be performed. COMMENT: This exam was performed according to our departmental dose-optimization program, which includes automated exposure control, adjustment of the mA and/or kV according to patient size and/or use of iterative reconstruction technique. Signed: Rai Rincon MDReport Verified Date/Time: 209:57:42 Reading Location: [facility] Radiology Reading Room MR, EXTREMITY, LOWER, JOINT, [id number] 09:14:00Unlisted Reason for Exam - Click Yes and Enter Reason Below->YesUnlisted Reason for Exam->hip painINLAND VALLEY [facility] : 1945 Sex: FFINAL REPORT MRI of the left hip and right hip with and without contrast. INDICATION: Unlisted Reason for Examhip pain COMPARISON: None TECHNIQUE: Multiplanar multisequence MRI examination of the left hip was performed with and without intravenous gadolinium. Multiplanar multisequence MRI examination of the right hip was performed with and without intravenous gadolinium. FINDINGS: Marrow signal is normal. No acute fracture, or or dislocation. There is mild bilateral hip DJD, associated with small osteophyte formation. No displaced labral tear is identified. There is no significant hip joint effusion. There is degenerative change in the lower lumbar spine. SI joints appear unremarkable. Symphysis pubis is congruent. Bilateral iliopsoas, hamstring, and gluteus tendons are intact. No bursitis. Visualized pelvic musculature appear unremarkable. In the pelvis, bladder is decompressed. Uterus is absent. There is suspected wall thickening of the sigmoid colon and rectum. IMPRESSION: Mild bilateral hip osteoarthritis. Question wall thickening of the sigmoid colon and rectum, correlate clinically. Signed: Turner Mistry MDReport Verified Date/Time: 06/16/2021 09:14:21 Reading Location: [facility] B1 C013X Ortho Consult Reading Room MR, EXTREMITY, LOWER, JOINT, [id number] 09:14:00Unlisted Reason for Exam - Click Yes and Enter Reason Below->YesUnlisted Reason for Exam->hip painIN[facility]LEY [facility] : 1945 Sex: FFINAL REPORT MRI of the left hip and right hip with and without contrast. INDICATION: Unlisted Reason for Examhip pain COMPARISON: None TECHNIQUE: Multiplanar multisequence MRI examination of the left hip was performed with and without intravenous gadolinium. Multiplanar multisequence MRI examination of the right hip was performed with and without intravenous gadolinium. FINDINGS: Marrow signal is normal. No acute fracture, or or dislocation. There is mild bilateral hip DJD, associated with small osteophyte formation. No displaced labral tear is identified. There is no significant hip joint effusion. There is degenerative change in the lower lumbar spine. SI joints appear unremarkable. Symphysis pubis is congruent. Bilateral iliopsoas, hamstring, and gluteus tendons are intact. No bursitis. Visualized pelvic musculature appear unremarkable. In the pelvis, bladder is decompressed. Uterus is absent. There is suspected wall thickening of the sigmoid colon and rectum. IMPRESSION: Mild bilateral hip osteoarthritis. Question wall thickening of the sigmoid colon and rectum, correlate clinically. Signed: Turner Mistry MDReport Verified Date/Time: 06/16/2021 09:14:21 Reading Location: [address] Ortho Consult Reading Room BASIC METABOLIC [id number] 06:27:18 Test Item Value Reference Range Interpretation Comments SODIUM (BEAKER) 139 meq/L 135-148 (test code = 381) POTASSIUM (BEAKER) 3.9 meq/L 3.6-5.5 (test code = 379) CHLORIDE (BEAKER) 109 meq/L 98-106 H (test code = 382) CO2 (BEAKER) (test 24 meq/L 20-29 code = 355) BLOOD UREA NITROGEN 17 mg/dL 10-26 (BEAKER) (test code = 354) CREATININE (BEAKER) 0.75 mg/dL 0.50-1.20 (test code = 358) GLUCOSE RANDOM 89 mg/dL 70-110 (BEAKER) (test code = 652) CALCIUM (BEAKER) 8.9 mg/dL 8.5-10.5 (test code = 697) EGFR (BEAKER) (test 91 mL/min/1.73 ESTIMA PERLITA GFR IS code = 1092) sq m NOT ACCURATE CREATININE CLEARANCE IN PREDICTING GLOMERULAR FILTRATION RATE . ESTIMATED GFR I S NOT APPLICABLE FOR DIALYSIS PATIEN TS. Electrician Constructor Supervisor ID - LITOOperator ID - LITOOperator ID - LITOOperator ID - LITOOperator ID - LITOOperator ID - LITOOperator ID - LITOOperator ID - LITOOperator ID - LITOOperator ID - LITOOperator ID - LITOOperator ID - LITOCBC W/PLT COUNT & AUTO [id number] 06:09:16 Test Item Value Reference Range Interpretation Comments WHITE BLOOD CELL COUNT (BEAKER) 9.4 K/ L 4.0-10.0 (test code = 775) RED BLOOD CELL COUNT (BEAKER) 3.68 M/ L 4.00-5.00 L (test code = 761) HEMOGLOBIN (BEAKER) (test code = 10.6 GM/DL 12.0-15.5 L 410) HEMATOCRIT (BEAKER) (test code = 33.0 % 36.0-46.0 L 411) MEAN CORPUSCULAR VOLUME (BEAKER) 89.7 fL 82.0-99.0 (test code = 753) MEAN CORPUSCULAR HEMOGLOBIN 28.8 pg 27.0-33.0 (BEAKER) (test code = 751) MEAN CORPUSCULAR HEMOGLOBIN CONC 32.1 GM/DL 32.0-36.0 (BEAKER) (test code = 752) RED CELL DISTRIBUTION WIDTH 13.8 % 12.0-15.0 (BEAKER) (test code = 412) PLATELET COUNT (BEAKER) (test 324 K/CU MM 150-430 code = 756) MEAN PLATELET VOLUME (BEAKER) 9.8 fL 6.0-11.5 (test code = 754) NUCLEATED RED BLOOD CELLS 0 /100 WBC 0-0 (BEAKER) (test code = 413) NEUTROPHILS RELATIVE PERCENT 48 % (BEAKER) (test code = 429) LYMPHOCYTES RELATIVE PERCENT 32 % (BEAKER) (test code = 430) MONOCYTES RELATIVE PERCENT 12 % (BEAKER) (test code = 431) EOSINOPHILS RELATIVE PERCENT 7 % (BEAKER) (test code = 432) BASOPHILS RELATIVE PERCENT 1 % (BEAKER) (test code = 437) NEUTROPHILS ABSOLUTE COUNT 4.54 K/ L 1.80-8.00 (BEAKER) (test code = 670) LYMPHOCYTES ABSOLUTE COUNT 3.03 K/ L 1.48-4.50 (BEAKER) (test code = 414) MONOCYTES ABSOLUTE COUNT (BEAKER) 1.15 K/ L 0.00-1.30 (test code = 415) EOSINOPHILS ABSOLUTE COUNT 0.62 K/ L 0.00-0.50 H (BEAKER) (test code = 416) BASOPHILS ABSOLUTE COUNT (BEAKER) 0.08 K/ L 0.00-0.20 (test code = 417) IMMATURE GRANULOCYTES-RELATIVE 0 % 0-0 PERCENT (BEAKER) (test code = 2801) BASIC METABOLIC [id number] 05:42:48 Test Item Value Reference Range Interpretation Comments SODIUM (BEAKER) 139 meq/L 135-148 (test code = 381) POTASSIUM (BEAKER) 4.0 meq/L 3.6-5.5 (test code = 379) CHLORIDE (BEAKER) 110 meq/L 98-106 H (test code = 382) CO2 (BEAKER) (test 20 meq/L 20-29 code = 355) BLOOD UREA NITROGEN 19 mg/dL 10-26 (BEAKER) (test code = 354) CREATININE (BEAKER) 0.78 mg/dL 0.50-1.20 (test code = 358) GLUCOSE RANDOM 97 mg/dL 70-110 (BEAKER) (test code = 652) CALCIUM (BEAKER) 8.9 mg/dL 8.5-10.5 (test code = 697) EGFR (BEAKER) (test 87 mL/min/1.73 ESTIMA PERLITA GFR IS code = 1092) sq m NOT ACCURATE CREATININE CLEARANCE IN PREDICTING GLOMERULAR FILTRATION RATE . ESTIMATED GFR I S NOT APPLICABLE FOR DIALYSIS PATIEN TS. Electrician Constructor Supervisor ID - MITCHOperator ID - MITCHOperator ID - MITCHOperator ID - MITCHOperator ID - MITCHOperator ID - MITCHOperator ID - MITCHOperator ID - MITCHOperator ID - MITCHOperator ID - MITCHOperator ID- MITCHOperator ID - JAI CBC W/PLT COUNT & AUTO [id number] 05:31:43 Test Item Value Reference Range Interpretation Comments WHITE BLOOD CELL COUNT (BEAKER) 12.4 K/ L 4.0-10.0 H (test code = 775) RED BLOOD CELL COUNT (BEAKER) 3.78 M/ L 4.00-5.00 L (test code = 761) HEMOGLOBIN (BEAKER) (test code = 10.7 GM/DL 12.0-15.5 L 410) HEMATOCRIT (BEAKER) (test code = 33.5 % 36.0-46.0 L 411) MEAN CORPUSCULAR VOLUME (BEAKER) 88.6 fL 82.0-99.0 (test code = 753) MEAN CORPUSCULAR HEMOGLOBIN 28.3 pg 27.0-33.0 (BEAKER) (test code = 751) MEAN CORPUSCULAR HEMOGLOBIN CONC 31.9 GM/DL 32.0-36.0 L (BEAKER) (test code = 752) RED CELL DISTRIBUTION WIDTH 13.9 % 12.0-15.0 (BEAKER) (test code = 412) PLATELET COUNT (BEAKER) (test 347 K/CU MM 150-430 code = 756) MEAN PLATELET VOLUME (BEAKER) 9.4 fL 6.0-11.5 (test code = 754) NUCLEATED RED BLOOD CELLS 0 /100 WBC 0-0 (BEAKER) (test code = 413) NEUTROPHILS RELATIVE PERCENT 64 % (BEAKER) (test code = 429) LYMPHOCYTES RELATIVE PERCENT 23 % (BEAKER) (test code = 430) MONOCYTES RELATIVE PERCENT 10 % (BEAKER) (test code = 431) EOSINOPHILS RELATIVE PERCENT 3 % (BEAKER) (test code = 432) BASOPHILS RELATIVE PERCENT 1 % (BEAKER) (test code = 437) NEUTROPHILS ABSOLUTE COUNT 7.89 K/ L 1.80-8.00 (BEAKER) (test code = 670) LYMPHOCYTES ABSOLUTE COUNT 2.84 K/ L 1.48-4.50 (BEAKER) (test code = 414) MONOCYTES ABSOLUTE COUNT (BEAKER) 1.24 K/ L 0.00-1.30 (test code = 415) EOSINOPHILS ABSOLUTE COUNT 0.32 K/ L 0.00-0.50 (BEAKER) (test code = 416) BASOPHILS ABSOLUTE COUNT (BEAKER) 0.07 K/ L 0.00-0.20 (test code = 417) IMMATURE GRANULOCYTES-RELATIVE 0 % 0-0 PERCENT (BEAKER) (test code = 2801) Urinalysis w/[id number] 06:00:27 Test Item Value Reference Range Interpretation Comments Color, UA (test code = Brown 5778-6) Clarity, UA (test code Clear = 5767-9) Specific [place], UA 1.025 1.001-1.035 (test code = 5811-5) pH, UA (test code = 5.5 5.0-8.0 5803-2) Protein, UA (test code Trace Negative A = 82581-1) Glucose, UA (test code Negative Negative = 365) Ketones, UA (test code Trace Negative A = 2514-8) Bilirubin, UA (test Positive Negative A code = 42215-6) Blood, UA (test code = Negative Negative 97407-9) Nitrite, UA (test code Positive Negative A RESUL T MAY BE = 5802-4) INACCURATE DUE TO COLOR INTERFERE NCE. Leukocytes, UA (test Negative Negative code = 5799-2) Urobilinogen, UA (test 1.0 mg/dL 0.2-1.0 code = 31654-5) Bacteria, UA (test code Occasional = 86281-9) Mucus (test code = Occasional 8247-9) Ca Oxalate Casi, UA Occasional (test code = 21827-1) RBC, UA (test code = <5 See_Comment [Autom ated message] 799-7) The system [employer] generated this result transmit perlita reference range : /HPF. The refer ence range was not u sed to interpret th is result as normal/abnormal . WBC, UA (test code = <5 See_Comment [Autom ated message] 69195-4) The system [employer] generated this result transmit perlita reference range : /HPF. The refer ence range was not u sed to interpret th is result as normal/abnormal . SQUAMOUS EPITHELIAL <5 See_Comment [Automa perlita message] (test code = 77870-8) The sy stem which generated this result transmit perlita reference range : /HPF. The refer ence range was not u sed to interpret th is result as normal/abnormal . Specimen Source (test code = 2795) Lab Interpretation Abnormal (test code = 43878-9) [facility] w/[id number] 06:00:27 Test Item Value Reference Range Interpretation Comments Color, UA (test code = Brown 5778-6) Clarity, UA (test code Clear = 5767-9) Specific [place], UA 1.025 1.001-1.035 (test code = 5811-5) pH, UA (test code = 5.5 5.0-8.0 5803-2) Protein, UA (test code Trace Negative A = 02177-3) Glucose, UA (test code Negative Negative = 365) Ketones, UA (test code Trace Negative A = 2514-8) Bilirubin, UA (test Positive Negative A code = 03045-6) Blood, UA (test code = Negative Negative 61398-6) Nitrite, UA (test code Positive Negative A RESUL T MAY BE = 5802-4) INACCURATE DUE TO COLOR INTERFERE NCE. Leukocytes, UA (test Negative Negative code = 5799-2) Urobilinogen, UA (test 1.0 mg/dL 0.2-1.0 code = 57178-3) Bacteria, UA (test code Occasional = 47148-7) Mucus (test code = Occasional 8247-9) Ca Oxalate Casi, UA Occasional (test code = 91784-4) RBC, UA (test code = <5 See_Comment [Autom ated message] 799-7) The system [employer] generated this result transmit perlita reference range : /HPF. The refer ence range was not u sed to interpret th is result as normal/abnormal . WBC, UA (test code = <5 See_Comment [Autom ated message] 88950-4) The system [employer] generated this result transmit perlita reference range : /HPF. The refer ence range was not u sed to interpret th is result as normal/abnormal . SQUAMOUS EPITHELIAL <5 See_Comment [Automa perlita message] (test code = 24115-0) The sy stem which generated this result transmit perlita reference range : /HPF. The refer ence range was not u sed to interpret th is result as normal/abnormal . Specimen Source (test code = 2795) Lab Interpretation Abnormal (test code = 39192-9) [facility][id number] 06:00:27 Test Item Value Reference Range Interpretation Comments Color, UA (test code = Brown 5778-6) Clarity, UA (test code Clear = 5767-9) Specific [place], UA 1.025 1.001-1.035 (test code = 5811-5) pH, UA (test code = 5.5 5.0-8.0 5803-2) Protein, UA (test code Trace Negative A = 29041-1) Glucose, UA (test code Negative Negative = 365) Ketones, UA (test code Trace Negative A = 2514-8) Bilirubin, UA (test Positive Negative A code = 85441-6) Blood, UA (test code = Negative Negative 54486-0) Nitrite, UA (test code Positive Negative A RESUL T MAY BE = 5802-4) INACCURATE DUE TO COLOR INTERFERE NCE. Leukocytes, UA (test Negative Negative code = 5799-2) Urobilinogen, UA (test 1.0 mg/dL 0.2-1.0 code = 54349-5) Bacteria, UA (test code Occasional = 77354-9) Mucus (test code = Occasional 8247-9) Ca Oxalate Casi, UA Occasional (test code = 47626-1) RBC, UA (test code = <5 See_Comment [Autom ated message] 799-7) The system [employer] generated this result transmit perlita reference range : /HPF. The refer ence range was not u sed to interpret th is result as normal/abnormal . WBC, UA (test code = <5 See_Comment [Autom ated message] 93079-6) The system [employer] generated this result transmit perlita reference range : /HPF. The refer ence range was not u sed to interpret th is result as normal/abnormal . SQUAMOUS EPITHELIAL <5 See_Comment [Automa perlita message] (test code = 41541-3) The sy stem which generated this result transmit perlita reference range : /HPF. The refer ence range was not u sed to interpret th is result as normal/abnormal . Specimen Source (test code = 2795) Lab Interpretation Abnormal (test code = 67747-4) [facility]/[id number] 06:00:27 Test Item Value Reference Range Interpretation Comments Color, UA (test code = Brown 5778-6) Clarity, UA (test code Clear = 5767-9) Specific [place], UA 1.025 1.001-1.035 (test code = 5811-5) pH, UA (test code = 5.5 5.0-8.0 5803-2) Protein, UA (test code Trace Negative A = 60026-0) Glucose, UA (test code Negative Negative = 365) Ketones, UA (test code Trace Negative A = 2514-8) Bilirubin, UA (test Positive Negative A code = 99642-6) Blood, UA (test code = Negative Negative 51881-5) Nitrite, UA (test code Positive Negative A RESUL T MAY BE = 5802-4) INACCURATE DUE TO COLOR INTERFERE NCE. Leukocytes, UA (test Negative Negative code = 5799-2) Urobilinogen, UA (test 1.0 mg/dL 0.2-1.0 code = 69790-6) Bacteria, UA (test code Occasional = 87060-2) Mucus (test code = Occasional 8247-9) Ca Oxalate Casi, UA Occasional (test code = 33376-8) RBC, UA (test code = <5 See_Comment [Autom ated message] 279-7) The system [employer] generated this result transmit perlita reference range : /HPF. The refer ence range was not u sed to interpret th is result as normal/abnormal . WBC, UA (test code = <5 See_Comment [Autom ated message] 25276-6) The system [employer] generated this result transmit perlita reference range : /HPF. The refer ence range was not u sed to interpret th is result as normal/abnormal . SQUAMOUS EPITHELIAL <5 See_Comment [Automa perlita message] (test code = 75809-5) The sy stem which generated this result transmit perlita reference range : /HPF. The refer ence range was not u sed to interpret th is result as normal/abnormal . Specimen Source (test code = 2795) Lab Interpretation Abnormal (test code = 24975-0) [facility]/[id number] 06:00:27 Test Item Value Reference Range Interpretation Comments Color, UA (test code = Brown 5778-6) Clarity, UA (test code Clear = 5767-9) Specific [place], UA 1.025 1.001-1.035 (test code = 5811-5) pH, UA (test code = 5.5 5.0-8.0 5803-2) Protein, UA (test code Trace Negative A = 10566-5) Glucose, UA (test code Negative Negative = 365) Ketones, UA (test code Trace Negative A = 2514-8) Bilirubin, UA (test Positive Negative A code = 51271-6) Blood, UA (test code = Negative Negative 32049-4) Nitrite, UA (test code Positive Negative A RESUL T MAY BE = 5802-4) INACCURATE DUE TO COLOR INTERFERE NCE. Leukocytes, UA (test Negative Negative code = 5799-2) Urobilinogen, UA (test 1.0 mg/dL 0.2-1.0 code = 40741-2) Bacteria, UA (test code Occasional = 96693-2) Mucus (test code = Occasional 8247-9) Ca Oxalate Casi, UA Occasional (test code = 30040-9) RBC, UA (test code = <5 See_Comment [Autom ated message] 799-7) The system [employer] generated this result transmit perlita reference range : /HPF. The refer ence range was not u sed to interpret th is result as normal/abnormal . WBC, UA (test code = <5 See_Comment [Autom ated message] 38967-2) The system [employer] generated this result transmit perlita reference range : /HPF. The refer ence range was not u sed to interpret th is result as normal/abnormal . SQUAMOUS EPITHELIAL <5 See_Comment [Automa perlita message] (test code = 09052-3) The sy stem which generated this result transmit perlita reference range : /HPF. The refer ence range was not u sed to interpret th is result as normal/abnormal . Specimen Source (test code = 2795) Lab Interpretation Abnormal (test code = 04409-1) [facility]/[id number] 06:00:27 Test Item Value Reference Range Interpretation Comments Color, UA (test code = Brown 5778-6) Clarity, UA (test code Clear = 5767-9) Specific [place], UA 1.025 1.001-1.035 (test code = 5811-5) pH, UA (test code = 5.5 5.0-8.0 5803-2) Protein, UA (test code Trace Negative A = 48903-0) Glucose, UA (test code Negative Negative = 365) Ketones, UA (test code Trace Negative A = 2514-8) Bilirubin, UA (test Positive Negative A code = 43264-6) Blood, UA (test code = Negative Negative 83611-6) Nitrite, UA (test code Positive Negative A RESUL T MAY BE = 5802-4) INACCURATE DUE TO COLOR INTERFERE NCE. Leukocytes, UA (test Negative Negative code = 5799-2) Urobilinogen, UA (test 1.0 mg/dL 0.2-1.0 code = 16006-3) Bacteria, UA (test code Occasional = 80130-1) Mucus (test code = Occasional 8247-9) Ca Oxalate Casi, UA Occasional (test code = 31946-8) RBC, UA (test code = <5 See_Comment [Autom ated message] 799-7) The system [employer] generated this result transmit perlita reference range : /HPF. The refer ence range was not u sed to interpret th is result as normal/abnormal . WBC, UA (test code = <5 See_Comment [Autom ated message] 18024-4) The system [employer] generated this result transmit perlita reference range : /HPF. The refer ence range was not u sed to interpret th is result as normal/abnormal . SQUAMOUS EPITHELIAL <5 See_Comment [Automa perlita message] (test code = 05329-5) The sy stem which generated this result transmit perlita reference range : /HPF. The refer ence range was not u sed to interpret th is result as normal/abnormal . Specimen Source (test code = 2795) Lab Interpretation Abnormal (test code = 03456-7) [facility]/[id number] 06:00:27 Test Item Value Reference Range Interpretation Comments Color, UA (test code = Brown 5778-6) Clarity, UA (test code Clear = 5767-9) Specific [place], UA 1.025 1.001-1.035 (test code = 5811-5) pH, UA (test code = 5.5 5.0-8.0 5803-2) Protein, UA (test code Trace Negative A = 67059-5) Glucose, UA (test code Negative Negative = 365) Ketones, UA (test code Trace Negative A = 2514-8) Bilirubin, UA (test Positive Negative A code = 21990-7) Blood, UA (test code = Negative Negative 30017-2) Nitrite, UA (test code Positive Negative A RESUL T MAY BE = 5802-4) INACCURATE DUE TO COLOR INTERFERE NCE. Leukocytes, UA (test Negative Negative code = 5799-2) Urobilinogen, UA (test 1.0 mg/dL 0.2-1.0 code = 72960-5) Bacteria, UA (test code Occasional = 16699-7) Mucus (test code = Occasional 8247-9) Ca Oxalate Casi, UA Occasional (test code = 53152-9) RBC, UA (test code = <5 See_Comment [Autom ated message] 799-7) The system [employer] generated this result transmit perlita reference range : /HPF. The refer ence range was not u sed to interpret th is result as normal/abnormal . WBC, UA (test code = <5 See_Comment [Autom ated message] 82472-7) The system [employer] generated this result transmit perlita reference range : /HPF. The refer ence range was not u sed to interpret th is result as normal/abnormal . SQUAMOUS EPITHELIAL <5 See_Comment [Automa perlita message] (test code = 04540-6) The sy stem which generated this result transmit perlita reference range : /HPF. The refer ence range was not u sed to interpret th is result as normal/abnormal . Specimen Source (test code = 2795) Lab Interpretation Abnormal (test code = 29934-0) [facility]/[id number] 06:00:27 Test Item Value Reference Range Interpretation Comments Color, UA (test code = Brown 5778-6) Clarity, UA (test code Clear = 5767-9) Specific [place], UA 1.025 1.001-1.035 (test code = 5811-5) pH, UA (test code = 5.5 5.0-8.0 5803-2) Protein, UA (test code Trace Negative A = 72984-4) Glucose, UA (test code Negative Negative = 365) Ketones, UA (test code Trace Negative A = 2514-8) Bilirubin, UA (test Positive Negative A code = 39900-7) Blood, UA (test code = Negative Negative 62652-3) Nitrite, UA (test code Positive Negative A RESUL T MAY BE = 5802-4) INACCURATE DUE TO COLOR INTERFERE NCE. Leukocytes, UA (test Negative Negative code = 5799-2) Urobilinogen, UA (test 1.0 mg/dL 0.2-1.0 code = 43233-6) Bacteria, UA (test code Occasional = 81750-0) Mucus (test code = Occasional 8247-9) Ca Oxalate Casi, UA Occasional (test code = 46624-4) RBC, UA (test code = <5 See_Comment [Autom ated message] 799-7) The system [employer] generated this result transmit perlita reference range : /HPF. The refer ence range was not u sed to interpret th is result as normal/abnormal . WBC, UA (test code = <5 See_Comment [Autom ated message] 68251-8) The system [employer] generated this result transmit perlita reference range : /HPF. The refer ence range was not u sed to interpret th is result as normal/abnormal . SQUAMOUS EPITHELIAL <5 See_Comment [Automa perlita message] (test code = 06243-4) The sy stem which generated this result transmit perlita reference range : /HPF. The refer ence range was not u sed to interpret th is result as normal/abnormal . Specimen Source (test code = 2795) Lab Interpretation Abnormal (test code = 12011-5) [facility]/[id number] 06:00:27 Test Item Value Reference Range Interpretation Comments Color, UA (test code = Brown 5778-6) Clarity, UA (test code Clear = 5767-9) Specific [place], UA 1.025 1.001-1.035 (test code = 5811-5) pH, UA (test code = 5.5 5.0-8.0 5803-2) Protein, UA (test code Trace Negative A = 69494-7) Glucose, UA (test code Negative Negative = 365) Ketones, UA (test code Trace Negative A = 2514-8) Bilirubin, UA (test Positive Negative A code = 30622-0) Blood, UA (test code = Negative Negative 99547-9) Nitrite, UA (test code Positive Negative A RESUL T MAY BE = 5802-4) INACCURATE DUE TO COLOR INTERFERE NCE. Leukocytes, UA (test Negative Negative code = 5799-2) Urobilinogen, UA (test 1.0 mg/dL 0.2-1.0 code = 23117-0) Bacteria, UA (test code Occasional = 42497-9) Mucus (test code = Occasional 8247-9) Ca Oxalate Cais, UA Occasional (test code = 75332-8) RBC, UA (test code = <5 See_Comment [Autom ated message] 799-7) The system [employer] generated this result transmit perlita reference range : /HPF. The refer ence range was not u sed to interpret th is result as normal/abnormal . WBC, UA (test code = <5 See_Comment [Autom ated message] 71297-2) The system [employer] generated this result transmit perlita reference range : /HPF. The refer ence range was not u sed to interpret th is result as normal/abnormal . SQUAMOUS EPITHELIAL <5 See_Comment [Automa perlita message] (test code = 39789-9) The sy stem which generated this result transmit perlita reference range : /HPF. The refer ence range was not u sed to interpret th is result as normal/abnormal . Specimen Source (test code = 2795) Lab Interpretation Abnormal (test code = 42513-3) [facility]/ [id number] 06:00:27 Test Item Value Reference Range Interpretation Comments COLOR (BEAKER) (test Brown code = 470) CLARITY (BEAKER) (test Clear code = 469) SPECIFIC GRAVITY UA 1.025 1.001-1.035 (BEAKER) (test code = 468) PH UA (BEAKER) (test 5.5 5.0-8.0 code = 467) PROTEIN UA (BEAKER) Trace Negative A (test code = 464) GLUCOSE UA (BEAKER) Negative Negative (test code = 365) KETONES UA (BEAKER) Trace Negative A (test code = 371) BILIRUBIN UA (BEAKER) Positive Negative A (test code = 462) BLOOD UA (BEAKER) (test Negative Negative code = 461) NITRITE UA (BEAKER) Positive Negative A RESULT M AY BE (test code = 465) INACCURATE DUE TO COLOR INTERFERE NCE. LEUKOCYTE ESTERASE UA Negative Negative (BEAKER) (test code = 466) UROBILINOGEN UA 1.0 mg/dL 0.2-1.0 (BEAKER) (test code = 463) BACTERIA (BEAKER) (test Occasional code = 517) MUCUS (BEAKER) (test Occasional code = 1574) CALCIUM OXALATE Occasional CRYSTALS (BEAKER) (test code = 518) RBC UA-MANUAL (BEAKER) <5 /HPF (test code = 1659) WBC UA-MANUAL (BEAKER) <5 /HPF (test code = 1661) SQUAMOUS EPITHELIAL <5 /HPF MANUAL (BEAKER) (test code = 1663) SOURCE(BEAKER) (test code = 2795) [id number] 05:07:34 Test Item Value Reference Range Interpretation Comments Magnesium (test code = 2.4 mg/dL 1.5-3.0 Speci men 18568-3) slightly hemolyzed PENNY (test code = PENNY) Electrician Constructor Supervisor ID - MABLE Lab Interpretation Normal (test code = 24139-5) [facility] 05:07:34 Test Item Value Reference Range Interpretation Comments Magnesium (test code = 2.4 mg/dL 1.5-3.0 Speci men 21047-8) slightly hemolyzed PENNY (test code = PENNY) Electrician Constructor Supervisor ID - MABLE Lab Interpretation Normal (test code = 64705-1) [facility]2022-01-09 05:07:34 Test Item Value Reference Range Interpretation Comments Magnesium (test code = 2.4 mg/dL 1.5-3.0 Speci men 59082-5) slightly hemolyzed PENNY (test code = PENNY) Electrician Constructor Supervisor ID - MABLE Lab Interpretation Normal (test code = 85037-5) [facility]2022-01-09 05:07:34 Test Item Value Reference Range Interpretation Comments Magnesium (test code = 2.4 mg/dL 1.5-3.0 Speci men 12903-6) slightly hemolyzed PENNY (test code = PENNY) Electrician Constructor Supervisor ID - MABLE Lab Interpretation Normal (test code = 51628-3) [facility]2022-01-09 05:07:34 Test Item Value Reference Range Interpretation Comments Magnesium (test code = 2.4 mg/dL 1.5-3.0 Speci men 65684-1) slightly hemolyzed PENNY (test code = PENNY) Electrician Constructor Supervisor ID - MABLE Lab Interpretation Normal (test code = 24891-6) [facility]2022-01-09 05:07:34 Test Item Value Reference Range Interpretation Comments Magnesium (test code = 2.4 mg/dL 1.5-3.0 Speci men 23553-4) slightly hemolyzed PENNY (test code = PENNY) Electrician Constructor Supervisor ID - MABLE Lab Interpretation Normal (test code = 08919-6) [facility]2022-01-09 05:07:34 Test Item Value Reference Range Interpretation Comments Magnesium (test code = 2.4 mg/dL 1.5-3.0 Speci men 75645-8) slightly hemolyzed PENNY (test code = PENNY) Electrician Constructor Supervisor ID - MABLE Lab Interpretation Normal (test code = 08617-6) [place]1202-01-09 05:07:34 Test Item Value Reference Range Interpretation Comments Magnesium (test code = 2.4 mg/dL 1.5-3.0 Speci men 48574-7) slightly hemolyzed PENNY (test code = PENNY) Electrician Constructor Supervisor ID - MABLE Lab Interpretation Normal (test code = 97476-6) [facility] Test Item Value Reference Range Interpretation Comments Magnesium (test code = 2.4 mg/dL 1.5-3.0 Speci men 57946-8) slightly hemolyzed PENNY (test code = PENNY) Electrician Constructor Supervisor ID - MABLE Lab Interpretation Normal (test code = 67958-8) [facility] 05:07:34 Test Item Value Reference Range Interpretation Comments MAGNESIUM (BEAKER) 2.4 mg/dL 1.5-3.0 Specimen slightly (test code = 627) hemolyzed Electrician Constructor Supervisor ID - [id number] 05:05:32 Test Item Value Reference Range Interpretation Comments Phosphorus (test code 2.8 mg/dL 2.5-4.5 Specim en = 2777-1) slightly hemolyzed PENNY (test code = PENNY) Electrician Constructor Supervisor ID - MABLE Lab Interpretation Normal (test code = 28849-8) [facility] 05:05:32 Test Item Value Reference Range Interpretation Comments Phosphorus (test code 2.8 mg/dL 2.5-4.5 Specim en = 2777-1) slightly hemolyzed PENNY (test code = PENNY) Electrician Constructor Supervisor ID - MABLE Lab Interpretation Normal (test code = 85922-4) [facility] 05:05:32 Test Item Value Reference Range Interpretation Comments Phosphorus (test code 2.8 mg/dL 2.5-4.5 Specim en = 2777-1) slightly hemolyzed PENNY (test code = PENNY) Electrician Constructor Supervisor ID - MABLE Lab Interpretation Normal (test code = 01120-0) [facility] 05:05:32 Test Item Value Reference Range Interpretation Comments Phosphorus (test code 2.8 mg/dL 2.5-4.5 Specim en = 2777-1) slightly hemolyzed PENNY (test code = PENNY) Electrician Constructor Supervisor ID - MABLE Lab Interpretation Normal (test code = 98262-2) [facility] 05:05:32 Test Item Value Reference Range Interpretation Comments Phosphorus (test code 2.8 mg/dL 2.5-4.5 Specim en = 2777-1) slightly hemolyzed PENNY (test code = PENNY) Electrician Constructor Supervisor ID - MABLE Lab Interpretation Normal (test code = 57924-7) [facility] 05:05:32 Test Item Value Reference Range Interpretation Comments Phosphorus (test code 2.8 mg/dL 2.5-4.5 Specim en = 2777-1) slightly hemolyzed PENNY (test code = PENNY) Electrician Constructor Supervisor ID - MABLE Lab Interpretation Normal (test code = 27936-1) [facility] 05:05:32 Test Item Value Reference Range Interpretation Comments Phosphorus (test code 2.8 mg/dL 2.5-4.5 Specim en = 2777-1) slightly hemolyzed PENNY (test code = PENNY) Electrician Constructor Supervisor ID - MABLE Lab Interpretation Normal (test code = 35490-5) [facility] 05:05:32 Test Item Value Reference Range Interpretation Comments Phosphorus (test code 2.8 mg/dL 2.5-4.5 Specim en = 2777-1) slightly hemolyzed PENNY (test code = PENNY) Electrician Constructor Supervisor ID - MABLE Lab Interpretation Normal (test code = 68916-6) [facility] 05:05:32 Test Item Value Reference Range Interpretation Comments Phosphorus (test code 2.8 mg/dL 2.5-4.5 Specim en = 2777-1) slightly hemolyzed PENNY (test code = PENNY) Electrician Constructor Supervisor ID - MABLE Lab Interpretation Normal (test code = 10874-2) [facility] 05:05:32 Test Item Value Reference Range Interpretation Comments PHOSPHORUS (BEAKER) 2.8 mg/dL 2.5-4.5 Specimen slightly (test code = 604) hemolyzed Electrician Constructor Supervisor ID - LITOCT, CHEST, [id number] 04:55:00Unlisted Reason for Exam - Click Yes and Enter Reason Below->YesUnlisted Reason for Exam->Right sided lung [facility] : 1945 Sex: FFINAL REPORT CLINICAL INDICATION: Unlisted reason for exam, right-sided lung mass on chest x-ray COMPARISON: None Multiple axial images of the chest were performed before and afterthe uncomplicated administration of IV contrast. This exam was performed according to our departmental dose-optimization program, which includes automated exposure control, adjustment of the mA and/or kV according to patient size and/or use of the iterative reconstruction technique. FINDINGS: Lung parenchyma: There is a spiculated mass in the perihilar inferior left upper lobe that measures 5.0 x 4.3cm in axial dimension and 5.3 cm in craniocaudal dimension. It abuts or invades the minor fissure. There is encasement/obstruction of the distal portion of the adjacent anterior subsegmental bronchus. There are mild centrilobular emphysematous changes in the mid and upper lungs. There is no consolidation or groundglass opacification. Pleural effusion: None. Pneumothorax: None. Tracheobronchial tree: The central tracheobronchial tree is patent. Pulmonary vasculature: No significant findings. Cardiac contours and great vessels: No significant findings. Mediastinum: No significant findings. Lymph Nodes: No adenopathy in the mediastinum or rex. Skeleton: No lytic or blastic lesions in the thoracic skeleton. Partially visualized cervical fusion hardware. Other:Surgical clips in the left axilla and left breast. Limited images of upper abdomen: No significant findings. IMPRESSION: 5.0 x 4.3 x 5.3 cm spiculated mass in the right perihilar lung, centered on the upper lobe but possibly traversing the minor fissure. The appearance is highly concerning for bronchogenic malignancy. Histologic evaluation is recommended. The lesion appears amenable to percutaneous biopsy. Mild pulmonary emphysema. Signed: Darion Handley MDReport Verified Date/Time: 06/14/2021 04:55:13 [id number] 04:48:26 Test Item Value Reference Range Interpretation Comments PTT (test code = 03847-6) 26.9 See_Comment Fi nal Information (Auto Output) [Automated mess age] The system [employer] generated this result transmitted ref erence range: 23.0 - 3 5.0 seconds. The re ference range was not u sed to interpret this result as normal/abnor mal. Lab Interpretation (test Normal code = 47682-7) [place] [id number] 04:48:26 Test Item Value Reference Range Interpretation Comments PTT (test code = 71830-0) 26.9 See_Comment Fi nal Information (Auto Output) [Automated mess age] The system [employer] generated this result transmitted ref erence range: 23.0 - 3 5.0 seconds. The re ference range was not u sed to interpret this result as normal/abnor mal. Lab Interpretation (test Normal code = 44551-3) [facility] 04:[facility] Test Item Value Reference Range Interpretation Comments PTT (test code = 35143-5) 26.9 See_Comment Fi nal Information (Auto Output) [Automated mess age] The system [employer] generated this result transmitted ref erence range: 23.0 - 3 5.0 seconds. The re ference range was not u sed to interpret this result as normal/abnor mal. Lab Interpretation (test Normal code = 83688-4) [place] [id number] 04:48:26 Test Item Value Reference Range Interpretation Comments PTT (test code = 56749-1) 26.9 See_Comment Fi nal Information (Auto Output) [Automated mess age] The system [employer] generated this result transmitted ref erence range: 23.0 - 3 5.0 seconds. The re ference range was not u sed to interpret this result as normal/abnor mal. Lab Interpretation (test Normal code = 05313-1) [place] 48155022-01-09 04:48:26 Test Item Value Reference Range Interpretation Comments PTT (test code = 94033-3) 26.9 See_Comment Fi nal Information (Auto Output) [Automated mess age] The system [employer] generated this result transmitted ref erence range: 23.0 - 3 5.0 seconds. The re ference range was not u sed to interpret this result as normal/abnor mal. Lab Interpretation (test Normal code = 55220-6) [facility] Test Item Value Reference Range Interpretation Comments PTT (test code = 86368-3) 26.9 See_Comment Fi nal Information (Auto Output) [Automated mess age] The system [employer] generated this result transmitted ref erence range: 23.0 - 3 5.0 seconds. The re ference range was not u sed to interpret this result as normal/abnor mal. Lab Interpretation (test Normal code = 34943-6) [place] [id number] 04:48:26 Test Item Value Reference Range Interpretation Comments PTT (test code = 55075-5) 26.9 See_Comment Fi nal Information (Auto Output) [Automated mess age] The system [employer] generated this result transmitted ref erence range: 23.0 - 3 5.0 seconds. The re ference range was not u sed to interpret this result as normal/abnor mal. Lab Interpretation (test Normal code = 76973-2) [facility] Test Item Value Reference Range Interpretation Comments PTT (test code = 63399-3) 26.9 See_Comment Fi nal Information (Auto Output) [Automated mess age] The system [employer] generated this result transmitted ref erence range: 23.0 - 3 5.0 seconds. The re ference range was not u sed to interpret this result as normal/abnor mal. Lab Interpretation (test Normal code = 89012-7) [facility] Test Item Value Reference Range Interpretation Comments PTT (test code = 90329-4) 26.9 See_Comment Fi nal Information (Auto Output) [Automated mess age] The system [employer] generated this result transmitted ref erence range: 23.0 - 3 5.0 seconds. The re ference range was not u sed to interpret this result as normal/abnor mal. Lab Interpretation (test Normal code = 66587-5) [facility] Test Item Value Reference Range Interpretation Comments PARTIAL THROMBOPLASTIN 26.9 seconds 23.0-35.0 Final Information TIME (BEAKER) (test (Auto Ou tput) code = 760) PROTHROMBIN TIME/[id number] 04:48:25 Test Item Value Reference Range Interpretation Comments PROTIME (BEAKER) 10.6 seconds 9.3-12.0 Final Infor mation (test code = 759) (Auto Outp ut) INR (BEAKER) (test 0.95 See_Comment Final Inf ormation code = 370) (Auto Output) [Automated mess age] The system [employer] generated this result transmitted ref erence range: <=5.90. The reference range was not used to int erpret this result as normal/abnormal . RECOMMENDED COUMADIN/WARFARIN INR THERAPY RANGESSTANDARD DOSE: 2.0 - 3.0 Includes: PROPHYLAXIS for venous thrombosis, systemic embolization; TREATMENT for venous thrombosis and/or pulmonary embolus.HIGH RISK: Target INR is 2.5-3.5 for patients with mechanical heart valves.Lactic acid, [id number] 03:49:01 Test Item Value Reference Range Interpretation Comments Lactate, Venous (test 1.20 mmol/L 0.50-2.00 code = 2872) PENNY (test code = PENNY) Electrician Constructor Supervisor ID - LITOOperator ID - LITOOperator ID - LITOOperator ID - MABLE Lab Interpretation (test Normal code = 04082-4) [facility] [id number] 03:49:01 Test Item Value Reference Range Interpretation Comments Lactate, Venous (test 1.20 mmol/L 0.50-2.00 code = 2872) PENNY (test code = PENNY) Electrician Constructor Supervisor ID - LITOOperator ID - LITOOperator ID - LITOOperator ID - MABLE Lab Interpretation (test Normal code = 55520-1) [facility] [id number] 03:49:01 Test Item Value Reference Range Interpretation Comments Lactate, Venous (test 1.20 mmol/L 0.50-2.00 code = 2872) PENNY (test code = PENNY) Electrician Constructor Supervisor ID - LITOOperator ID - LITOOperator ID - LITOOperator ID - MABLE Lab Interpretation (test Normal code = 94395-0) [facility] acid, [id number] 03:49:01 Test Item Value Reference Range Interpretation Comments Lactate, Venous (test 1.20 mmol/L 0.50-2.00 code = 2872) PENNY (test code = PENNY) Electrician Constructor Supervisor ID - LITOOperator ID - LITOOperator ID - LITOOperator ID - MABLE Lab Interpretation (test Normal code = 48556-1) [facility], [id number] 03:49:01 Test Item Value Reference Range Interpretation Comments Lactate, Venous (test 1.20 mmol/L 0.50-2.00 code = 2872) PENNY (test code = PENNY) Electrician Constructor Supervisor ID - LITOOperator ID - LITOOperator ID - LITOOperator ID - MABLE Lab Interpretation (test Normal code = 55938-2) [facility], [id number] 03:49:01 Test Item Value Reference Range Interpretation Comments Lactate, Venous (test 1.20 mmol/L 0.50-2.00 code = 2872) PENNY (test code = PENNY) Electrician Constructor Supervisor ID - LITOOperator ID - LITOOperator ID - LITOOperator ID - MABLE Lab Interpretation (test Normal code = 16147-2) [facility] acid, [id number] 03:49:01 Test Item Value Reference Range Interpretation Comments Lactate, Venous (test 1.20 mmol/L 0.50-2.00 code = 2872) PENNY (test code = PENNY) Electrician Constructor Supervisor ID - LITOOperator ID - LITOOperator ID - LITOOperator ID - MABLE Lab Interpretation (test Normal code = 38351-5) [facility], [id number] 03:49:01 Test Item Value Reference Range Interpretation Comments Lactate, Venous (test 1.20 mmol/L 0.50-2.00 code = 2872) PENNY (test code = PENNY) Electrician Constructor Supervisor ID - LITOOperator ID - LITOOperator ID - LITOOperator ID - MABLE Lab Interpretation (test Normal code = 96793-7) [facility], [id number] 03:49:01 Test Item Value Reference Range Interpretation Comments Lactate, Venous (test 1.20 mmol/L 0.50-2.00 code = 2872) PENNY (test code = PENNY) Electrician Constructor Supervisor ID - LITOOperator ID - LITOOperator ID - LITOOperator ID - MABLE Lab Interpretation (test Normal code = 23441-6) [facility], [id number] 03:49:01 Test Item Value Reference Range Interpretation Comments LACTATE BLOOD 1.20 mmol/L See_Comment [Automated me ssage] VENOUS (2) (BEAKER) The syst em which (test code = 2872) generated this result transmitted ref erence range: 0.50-<2. 00. The reference range was not used to interpr et this result as normal/abnormal . Electrician Constructor Supervisor ID - LITOOperator ID - LITOOperator ID - LITOOperator ID - MABLE SARS-COV2/RT-PCR ([facility])2021-06-14 03:36:59 Test Item Value Reference Range Interpretation Comments SARS-COV2/RT-PCR Negative Negative The SARS-Co V-2 target (test code = nucleic acids a re not 7821518) detected in thi s specimen. Negative result s do not preclude SARS-C oV-2 infection and s hould not be used as the bassem e basis for patient managem ent decisions. Nega tive results must be combine d with clinical observ ations, patient history , and epidemiological information. A false negativ e result may occur if a spec imen is improperly micah ected, transported or handled. This SARS CoV-2 test is a rapid, real-time RT-PC R test intended for th e qualitative detection of nu cleic acid from SARS-CoV-2 in a nasopharyngeal swab specimen collected from individuals suspected of CO VID-19 by their healthcar e provider. This test has been authorized by FDA under an EUA for use by authorized laboratories. This test is only authorized for the duration of the declaration that circumstances exist justifying the authorization of emergency use of in vitro diagnostic tests for detection and/or diagnosis of COVID-19 under Section 564(b)(1) of the Federal Food, Drug and Cosmetic Act, 21 U.S.C. 360bbb-3(b)(1), unless the authorization is terminated or revoked sooner. Fact Sheet for Healthcare Providers: https://www.Privy m/Documents/Xpert%20Xpress%20SARS%20CoV-2/Fact%20Sheets/302-3802%87KQVA-EFH-5%20 HEALTHCARE%20PROVIDERS%20FACT%20SHEET.pdf Fact Sheet for Healthcare Patients: https://www.Mammotome/Documents/Xpert%20Xp ress%20SARS%20CoV-2/Fact%20Sheets/302-3801%41UFFG-RDH-3%20PATIENT%20FACT%20SHEET .pdfRAD, CHEST, 1 VIEW, NON [id number] 03:33:00Reason for exam:->BACK PAINPt reports chronic back pain from MS, states it is worse than before.Should this be performed at the bedside?->Yes [facility]AS : 1945 Sex: FFINAL REPORT History: Back pain. Comparison: 04/04/2017 Findings: A single viewof the chest is submitted. The cardiomediastinal contours are unremarkable. There is a 5.1 x 4.1 cm mass overlying the right hilum, worrisome for malignancy and which may reflect a perihilar mass or right hilar adenopathy. Further evaluation with CT chest is recommended. The lungs are otherwise clear. There is no pneumothorax, pleural effusion, evidence of overt pulmonary edema or acute bony abnormality. Impression: 5.1 x 4.1 cm right perihilar mass, worrisome for malignancy. Further evaluation withCT chest is recommended. Signed: Darion Handley MDReport Verified Date/Time: 06/14/2021 03:33:05 BASIC METABOLIC [id number] 03:16:48 Test Item Value Reference Range Interpretation Comments SODIUM (BEAKER) 140 meq/L 135-148 (test code = 381) POTASSIUM (BEAKER) 3.8 meq/L 3.6-5.5 Specimen slightly (test code = 379) hemolyzed CHLORIDE (BEAKER) 106 meq/L 98-106 (test code = 382) CO2 (BEAKER) (test 19 meq/L 20-29 L code = 355) BLOOD UREA NITROGEN 23 mg/dL 10-26 (BEAKER) (test code = 354) CREATININE (BEAKER) 1.12 mg/dL 0.50-1.20 Specimen slightly (test code = 358) hemolyzed GLUCOSE RANDOM 87 mg/dL 70-110 (BEAKER) (test code = 652) CALCIUM (BEAKER) 9.4 mg/dL 8.5-10.5 (test code = 697) EGFR (BEAKER) (test 57 mL/min/1.73 ESTIMA PERLITA GFR IS code = 1092) sq m NOT ACCURATE CREATININE CLEARANCE IN PREDICTING GLOMERULAR FILTRATION RATE . ESTIMATED GFR I S NOT APPLICABLE FOR DIALYSIS PATIEN TS. Electrician Constructor Supervisor ID - LITOOperator ID - LITOOperator ID - LITOOperator ID - LITOOperator ID - LITOOperator ID - LITOOperator ID - LITOOperator ID - LITOOperator ID - LITOOperator ID - LITOOperator ID - LITOOperator ID - LITOOperator ID - LITOCBC W/PLT COUNT & AUTO [id number] 02:56:39 Test Item Value Reference Range Interpretation Comments WHITE BLOOD CELL COUNT (BEAKER) 21.6 K/ L 4.0-10.0 H (test code = 775) RED BLOOD CELL COUNT (BEAKER) 4.20 M/ L 4.00-5.00 (test code = 761) HEMOGLOBIN (BEAKER) (test code = 12.2 GM/DL 12.0-15.5 410) HEMATOCRIT (BEAKER) (test code = 36.5 % 36.0-46.0 411) MEAN CORPUSCULAR VOLUME (BEAKER) 86.9 fL 82.0-99.0 (test code = 753) MEAN CORPUSCULAR HEMOGLOBIN 29.0 pg 27.0-33.0 (BEAKER) (test code = 751) MEAN CORPUSCULAR HEMOGLOBIN CONC 33.4 GM/DL 32.0-36.0 (BEAKER) (test code = 752) RED CELL DISTRIBUTION WIDTH 13.8 % 12.0-15.0 (BEAKER) (test code = 412) PLATELET COUNT (BEAKER) (test 409 K/CU MM 150-430 code = 756) MEAN PLATELET VOLUME (BEAKER) 10.2 fL 6.0-11.5 (test code = 754) NUCLEATED RED BLOOD CELLS 0 /100 WBC 0-0 (BEAKER) (test code = 413) NEUTROPHILS RELATIVE PERCENT 79 % (BEAKER) (test code = 429) LYMPHOCYTES RELATIVE PERCENT 14 % (BEAKER) (test code = 430) MONOCYTES RELATIVE PERCENT 6 % (BEAKER) (test code = 431) EOSINOPHILS RELATIVE PERCENT 0 % (BEAKER) (test code = 432) BASOPHILS RELATIVE PERCENT 0 % (BEAKER) (test code = 437) NEUTROPHILS ABSOLUTE COUNT 16.97 K/ L 1.80-8.00 H (BEAKER) (test code = 670) LYMPHOCYTES ABSOLUTE COUNT 3.01 K/ L 1.48-4.50 (BEAKER) (test code = 414) MONOCYTES ABSOLUTE COUNT (BEAKER) 1.38 K/ L 0.00-1.30 H (test code = 415) EOSINOPHILS ABSOLUTE COUNT 0.04 K/ L 0.00-0.50 (BEAKER) (test code = 416) BASOPHILS ABSOLUTE COUNT (BEAKER) 0.07 K/ L 0.00-0.20 (test code = 417) IMMATURE GRANULOCYTES-RELATIVE 0 % 0-0 PERCENT (BEAKER) (test code = 2801) MR, SPINE, LUMBAR, [id number] 20:43:00With general anesthesiaUnlisted Reason for Exam - Click Yes and Enter Reason Below->YesUnlisted Reason for Exam- >Chronic bilateral low back pain without sciatica [facility] : 1945 Sex: FFINAL REPORT MR, SPINE, LUMBAR, WITH \\T\\ WITHOUT CONTRAST INDICATION: Unlisted Reason for ExamChronic bilateral low back pain without sciatica TECHNIQUE: Multiplanar, multisequenceMRI of the lumbar spine with and without intravenous contrast. COMPARISON: None FINDINGS:Nomenclature: L5-S1 is series [id number] image 3. Alignment: Straightening of lumbar lordosis. Vertebral bodies: Vertebral body heights are maintained. Degenerative loss of intervertebral disc spaces throughout. SmallSchmorl's nodes. No marrow edema. No aggressive osseous lesions. Cord: Conus is of normal caliber and signal, and terminates at L2. Nerve roots of the cauda equina are of normal caliber and distribution. No abnormal intrathecal enhancement. Soft tissues: Paraspinal soft tissues are unremarkable. Additional findings by level: T12-L1: No significant canal or foraminal stenosis. L1-2: Circumferential disc bulge. Mild facet arthropathy. Mild canal stenosis. Mild bilateral subarticular recess and foraminal stenosis. L2-3: Circumferential disc bulge. Moderate facet arthropathy. Mild to moderate canal stenosis. Moderate stenosis of bilateral subarticular recesses. Mild bilateral foraminal stenosis. L3-4:Circumferential disc bulge. Moderate facet arthropathy. Mild to moderate canal stenosis. Severe stenosis of bilateral subarticular recesses. Moderate bilateral foraminal stenosis. L4-5: Circumferentialdisc bulge. Severe facet arthropathy. Mild canal stenosis. Severe stenosis of bilateral subarticularrecesses. Moderate bilateral foraminal stenosis. L5-S1: Circumferential disc bulge. Severe facet arthropathy. Mild canal stenosis. Severe stenosis of bilateral subarticular recesses. Severe bilateral foraminal stenosis. 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 High-grade bilateralsubarticular recess and foraminal stenosis at L3-4, L4-5, and L5-S1. Signed: Pratibha Ng MDReportVerified Date/Time: 06/10/2021 20:43:35 [facility] METABOLIC [id number] 11:45:05 Test Item Value Reference Range Interpretation Comments SODIUM (BEAKER) 141 meq/L 136-145 (test code = 381) POTASSIUM (BEAKER) 4.7 meq/L 3.5-5.1 (test code = 379) CHLORIDE (BEAKER) 108 meq/L 98-107 H (test code = 382) CO2 (BEAKER) (test 26 meq/L 22-29 code = 355) BLOOD UREA NITROGEN 17 mg/dL 7-21 (BEAKER) (test code = 354) CREATININE (BEAKER) 0.79 mg/dL 0.57-1.25 (test code = 358) GLUCOSE RANDOM 87 mg/dL 70-105 (BEAKER) (test code = 652) CALCIUM (BEAKER) 9.4 mg/dL 8.4-10.2 (test code = 697) EGFR (BEAKER) (test 86 mL/min/1.73 ESTIMA PERLITA GFR IS code = 1092) sq m NOT ACCURATE CREATININE CLEARANCE IN PREDICTING GLOMERULAR FILTRATION RATE . ESTIMATED GFR I S NOT APPLICABLE FOR DIALYSIS PATIEN TS. Electrician Constructor Supervisor ID - ANDREW MSARS-COV2/RT-PCR ([facility])2021-06-09 03:25:01 Test Item Value Reference Range Interpretation Comments SARS-COV2/RT-PCR (test Negative Not Detected, Negative, See code = 6624366) external report for linked test Negative result for this test determines that SARS-CoV-2 RNA was not present in the specimen above the Limit of Detection (LOD). However, Negative results do not preclude SARS-CoV-2 infection and should not be used as the sole basis for treatment or patient management decisions. Negative results must be combined with clinical observations, patient history, and epidemiological information. A false negative result may occur if a specimen is improperly collected, transported, or handled. A false negative result should be considered if patient's recent exposures or clinical presentation indicate that COVID-19 (SARS-CoV-2) is likely and diagnostic tests for other causes of illness are negative. Re-testing should be considered in cases of suspected false negatives.The limit of detection for this assay is 100 copies/mL.This SARS-CoV-2 test is a real-time RT_PCR test intended for the qualitative detection of nucleic acid from SARS-CoV-2 in a nasopharyngeal swab specimen collected from individuals suspected of COVID-19 by their healthcare provider.This test has not been Food and Drug Administration (FDA) cleared or approved. This is a modified version of an approved Emergency Use Authorization (EUA) and is in the process of review by the FDA. Once authorized by the FDA, the issued EUA will be effective until the declaration that circumstances exist justifying the authorization of the emergency use of in vitro diagnostic tests for detection and/or diagnosis of COVID-19 is terminated under Section 564(b)(2) of the Act or the EUA is revoked under Section 564(g) of the Act.Testing was performed using [employer] SARS-CoV-2 assay.Fact Sheet for Healthcare Providers:https://www.Baloonr.dugan/jamison/RT SARS-CoV-2 HCP Fact Sheet 51- 954713.pdfFact Sheet for Healthcare Patients:https://www.molecular.dugan/jamison/RT SARS-CoV-2 Patient Fact Sheet EN 51-056214Q8.pdfCONE [id number] 18:39:00 Test Item Value Reference Range Interpretation Comments Glucose Lvl (test code = Glucose Lvl) 82 70-99 [facility]2021-11-16 18:39:00 Test Item Value Reference Range Interpretation Comments BUN (test code = BUN) 15 7-22 [facility]2021-11-16 18:39:00 Test Item Value Reference Range Interpretation Comments Creatinine Lvl (test code = Creatinine 0.82 0.50-1.40 Lvl) [facility]2021-11-16 18:39:00 Test Item Value Reference Range Interpretation Comments Sodium Lvl (test code = Sodium Lvl) 141 135-145 [place] 549621-11-16 18:39:00 Test Item Value Reference Range Interpretation Comments Potassium Lvl (test code = Potassium 4.9 3.5-5.1 Lvl) [place] 549621-11-16 18:39:00 Test Item Value Reference Range Interpretation Comments Chloride Lvl (test code = Chloride Lvl) 109 95-109 [place] 549621-11-16 18:39:00 Test Item Value Reference Range Interpretation Comments CO2 (test code = CO2) 29 24-32 [place] 549621-11-16 18:39:00 Test Item Value Reference Range Interpretation Comments Calcium Lvl (test code = Calcium Lvl) 9.0 8.5-10.5 [place] 549621-11-16 18:39:00 Test Item Value Reference Range Interpretation Comments AGAP (test code = AGAP) 7.9 10.0-20.0 [place] [id number] 18:39:00 Test Item Value Reference Range Interpretation Comments eGFR (test code = eGFR) 70 [place] 549621-11-16 18:39:00 Test Item Value Reference Range Interpretation Comments Albumin Lvl (test code = Albumin Lvl) 3.3 3.5-5.0 [place] 574611-11-16 18:39:00 Test Item Value Reference Range Interpretation Comments Segs (test code = Segs) 50.0 45.0-75.0 [place] 574611-11-16 18:39:00 Test Item Value Reference Range Interpretation Comments Lymphocytes (test code = Lymphocytes) 34.8 20.0-40.0 [place] [address]-11-16 18:39:00 Test Item Value Reference Range Interpretation Comments Monocytes (test code = Monocytes) 8.3 2.0-12.0 [place] [address]-11-16 18:39:00 Test Item Value Reference Range Interpretation Comments Eosinophils (test code = 5.9 See_Comment [A utomated message] The Eosinophils) system which ge nerated this result tra nsmitted reference range : <=4.0. The reference r therese was not used to int erpret this result as normal/abnormal . [place] 574611-11-16 18:39:00 Test Item Value Reference Range Interpretation Comments Basophils (test code = 1.0 See_Comment [Aut omated message] The Basophils) system which ge nerated this result tra nsmitted reference range : <=1.0. The reference r therese was not used to int erpret this result as normal/abnormal . [place] 574611-11-16 18:39:00 Test Item Value Reference Range Interpretation Comments Neutrophils # (test code = Neutrophils 3.6 1.5-8.1 #) [place] 574611-11-16 18:39:00 Test Item Value Reference Range Interpretation Comments Lymphocytes # (test code = Lymphocytes 2.5 1.0-5.5 #) [place] 574611-11-16 18:39:00 Test Item Value Reference Range Interpretation Comments Monocytes # (test code 0.6 See_Comment [Aut omated message] The = Monocytes #) system which generated this result tra nsmitted reference range : <=0.8. The reference r therese was not used to int erpret this result as normal/abnormal . [place] 574611-11-16 18:39:00 Test Item Value Reference Range Interpretation Comments Eosinophils # (test code 0.4 See_Comment [A utomated message] The = Eosinophils #) system whic h generated this result tra nsmitted reference range : <=0.5. The reference r therese was not used to int erpret this result as normal/abnormal . [place] 574611-11-16 18:39:00 Test Item Value Reference Range Interpretation Comments Basophils # (test code 0.1 See_Comment [Aut omated message] The = Basophils #) system which generated this result tra nsmitted reference range : <=0.2. The reference r therese was not used to int erpret this result as normal/abnormal . [place] 574611-11-16 18:39:00 Test Item Value Reference Range Interpretation Comments WBC (test code = WBC) 7.3 3.7-10.4 [place] 574611-11-16 18:39:00 Test Item Value Reference Range Interpretation Comments RBC (test code = RBC) 4.01 4.20-5.40 [place] 574611-11-16 18:39:00 Test Item Value Reference Range Interpretation Comments Hgb (test code = Hgb) 11.8 12.0-16.0 [place] [address]-11-16 18:39:00 Test Item Value Reference Range Interpretation Comments Hct (test code = Hct) 35.1 36.0-48.0 [place] [address]-11-16 18:39:00 Test Item Value Reference Range Interpretation Comments MCV (test code = MCV) 87.5 80.0-98.0 [place] [address]-11-16 18:39:00 Test Item Value Reference Range Interpretation Comments MCH (test code = MCH) 29.5 pg 27.0-31.0 [place] 574611-11-16 18:39:00 Test Item Value Reference Range Interpretation Comments MCHC (test code = MCHC) 33.7 32.0-36.0 [place] 574611-11-16 18:39:00 Test Item Value Reference Range Interpretation Comments RDW (test code = RDW) 13.6 11.5-14.5 [place] [address]-11-16 18:39:00 Test Item Value Reference Range Interpretation Comments Platelet (test code = Platelet) 401 133-450 [place] [address]-11-16 18:39:00 Test Item Value Reference Range Interpretation Comments MPV (test code = MPV) 8.4 7.4-10.4 [place] 549621-11-16 18:39:00 Test Item Value Reference Range Interpretation Comments Glucose Lvl (test code = Glucose Lvl) 82 70-99 [place] 549621-11-16 18:39:00 Test Item Value Reference Range Interpretation Comments BUN (test code = BUN) 15 7-22 [place] 549621-11-16 18:39:00 Test Item Value Reference Range Interpretation Comments Creatinine Lvl (test code = Creatinine 0.82 0.50-1.40 Lvl) [place] 549621-11-16 18:39:00 Test Item Value Reference Range Interpretation Comments Sodium Lvl (test code = Sodium Lvl) 141 135-145 [place] 549621-11-16 18:39:00 Test Item Value Reference Range Interpretation Comments Potassium Lvl (test code = Potassium 4.9 3.5-5.1 Lvl) [place] [address]-11-16 18:39:00 Test Item Value Reference Range Interpretation Comments Chloride Lvl (test code = Chloride Lvl) 109 95-109 [place] [address]-11-16 18:39:00 Test Item Value Reference Range Interpretation Comments CO2 (test code = CO2) 29 24-32 [place] [address]-11-16 18:39:00 Test Item Value Reference Range Interpretation Comments Calcium Lvl (test code = Calcium Lvl) 9.0 8.5-10.5 [place] [address]-11-16 18:39:00 Test Item Value Reference Range Interpretation Comments AGAP (test code = AGAP) 7.9 10.0-20.0 [place] [address]-11-16 18:39:00 Test Item Value Reference Range Interpretation Comments eGFR (test code = eGFR) 70 [place] [address]-11-16 18:39:00 Test Item Value Reference Range Interpretation Comments Albumin Lvl (test code = Albumin Lvl) 3.3 3.5-5.0 [place] [address]-11-16 18:39:00 Test Item Value Reference Range Interpretation Comments Segs (test code = Segs) 50.0 45.0-75.0 [place] [address]-11-16 18:39:00 Test Item Value Reference Range Interpretation Comments Lymphocytes (test code = Lymphocytes) 34.8 20.0-40.0 [place] [address]-11-16 18:39:00 Test Item Value Reference Range Interpretation Comments Monocytes (test code = Monocytes) 8.3 2.0-12.0 [place] [address]-11-16 18:39:00 Test Item Value Reference Range Interpretation Comments Eosinophils (test code = 5.9 See_Comment [A utomated message] The Eosinophils) system which ge nerated this result tra nsmitted reference range : <=4.0. The reference r therese was not used to int erpret this result as normal/abnormal . [address]11-16 18:39:00 Test Item Value Reference Range Interpretation Comments Basophils (test code = 1.0 See_Comment [Aut omated message] The Basophils) system which ge nerated this result tra nsmitted reference range : <=1.0. The reference r therese was not used to int erpret this result as normal/abnormal . [id number] 18:39:00 Test Item Value Reference Range Interpretation Comments Neutrophils # (test code = Neutrophils 3.6 1.5-8.1 #) [facility]jufxtOXUDBJKHYB6813-35-21 18:39:00 Test Item Value Reference Range Interpretation Comments Lymphocytes # (test code = Lymphocytes 2.5 1.0-5.5 #) [place] 574611-11-16 18:39:00 Test Item Value Reference Range Interpretation Comments Monocytes # (test code 0.6 See_Comment [Aut omated message] The = Monocytes #) system which generated this result tra nsmitted reference range : <=0.8. The reference r therese was not used to int erpret this result as normal/abnormal . [facility]MmdbnsdQUFLBHPDCW4723-33-31 18:39:00 Test Item Value Reference Range Interpretation Comments Eosinophils # (test code 0.4 See_Comment [A utomated message] The = Eosinophils #) system whic h generated this result tra nsmitted reference range : <=0.5. The reference r therese was not used to int erpret this result as normal/abnormal . [id number] 18:39:00 Test Item Value Reference Range Interpretation Comments Basophils # (test code 0.1 See_Comment [Aut omated message] The = Basophils #) system which generated this result tra nsmitted reference range : <=0.2. The reference r therese was not used to int erpret this result as normal/abnormal . [facility]UvehzgsVDXUWWZLMZ0892-87-73 18:39:00 Test Item Value Reference Range Interpretation Comments WBC (test code = WBC) 7.3 3.7-10.4 [place] 574611-11-16 18:39:00 Test Item Value Reference Range Interpretation Comments RBC (test code = RBC) 4.01 4.20-5.40 [place] 574611-11-16 18:39:00 Test Item Value Reference Range Interpretation Comments Hgb (test code = Hgb) 11.8 12.0-16.0 [place] 574611-11-16 18:39:00 Test Item Value Reference Range Interpretation Comments Hct (test code = Hct) 35.1 36.0-48.0 [place] [address]-11-16 18:39:00 Test Item Value Reference Range Interpretation Comments MCV (test code = MCV) 87.5 80.0-98.0 [place] [address]-11-16 18:39:00 Test Item Value Reference Range Interpretation Comments MCH (test code = MCH) 29.5 pg 27.0-31.0 [place] [address]-11-16 18:39:00 Test Item Value Reference Range Interpretation Comments MCHC (test code = MCHC) 33.7 32.0-36.0 [place] [address]-11-16 18:39:00 Test Item Value Reference Range Interpretation Comments RDW (test code = RDW) 13.6 11.5-14.5 [place] [address]-11-16 18:39:00 Test Item Value Reference Range Interpretation Comments Platelet (test code = Platelet) 401 133-450 [place] [address]-11-16 18:39:00 Test Item Value Reference Range Interpretation Comments MPV (test code = MPV) 8.4 7.4-10.4 [place] 549621-11-16 18:39:00 Test Item Value Reference Range Interpretation Comments Glucose Lvl (test code = Glucose Lvl) 82 70-99 [place] 549621-11-16 18:39:00 Test Item Value Reference Range Interpretation Comments BUN (test code = BUN) 15 7-22 [place] 549621-11-16 18:39:00 Test Item Value Reference Range Interpretation Comments Creatinine Lvl (test code = Creatinine 0.82 0.50-1.40 Lvl) [place] 549621-11-16 18:39:00 Test Item Value Reference Range Interpretation Comments Sodium Lvl (test code = Sodium Lvl) 141 135-145 [place] 549621-11-16 18:39:00 Test Item Value Reference Range Interpretation Comments Potassium Lvl (test code = Potassium 4.9 3.5-5.1 Lvl) [place] 549621-11-16 18:39:00 Test Item Value Reference Range Interpretation Comments Chloride Lvl (test code = Chloride Lvl) 109 95-109 [place] [address]-11-16 18:39:00 Test Item Value Reference Range Interpretation Comments CO2 (test code = CO2) 29 24-32 [address]11-16 18:39:00 Test Item Value Reference Range Interpretation Comments Calcium Lvl (test code = Calcium Lvl) 9.0 8.5-10.5 [place] 549621-11-16 18:39:00 Test Item Value Reference Range Interpretation Comments AGAP (test code = AGAP) 7.9 10.0-20.0 [address]11-16 18:39:00 Test Item Value Reference Range Interpretation Comments eGFR (test code = eGFR) 70 [place] [address]-11-16 18:39:00 Test Item Value Reference Range Interpretation Comments Albumin Lvl (test code = Albumin Lvl) 3.3 3.5-5.0 [place] [address]-11-16 18:39:00 Test Item Value Reference Range Interpretation Comments Segs (test code = Segs) 50.0 45.0-75.0 [place] [address]-11-16 18:39:00 Test Item Value Reference Range Interpretation Comments Lymphocytes (test code = Lymphocytes) 34.8 20.0-40.0 [place] [address]-11-16 18:39:00 Test Item Value Reference Range Interpretation Comments Monocytes (test code = Monocytes) 8.3 2.0-12.0 [place] [address]-11-16 18:39:00 Test Item Value Reference Range Interpretation Comments Eosinophils (test code = 5.9 See_Comment [A utomated message] The Eosinophils) system which ge nerated this result tra nsmitted reference range : <=4.0. The reference r therese was not used to int erpret this result as normal/abnormal . [place] [address]-11-16 18:39:00 Test Item Value Reference Range Interpretation Comments Basophils (test code = 1.0 See_Comment [Aut omated message] The Basophils) system which ge nerated this result tra nsmitted reference range : <=1.0. The reference r tehrese was not used to int erpret this result as normal/abnormal . [place] [address]-11-16 18:39:00 Test Item Value Reference Range Interpretation Comments Neutrophils # (test code = Neutrophils 3.6 1.5-8.1 #) [place] 574611-11-16 18:39:00 Test Item Value Reference Range Interpretation Comments Lymphocytes # (test code = Lymphocytes 2.5 1.0-5.5 #) [place] 574611-11-16 18:39:00 Test Item Value Reference Range Interpretation Comments Monocytes # (test code 0.6 See_Comment [Aut omated message] The = Monocytes #) system which generated this result tra nsmitted reference range : <=0.8. The reference r therese was not used to int erpret this result as normal/abnormal . [place] 574611-11-16 18:39:00 Test Item Value Reference Range Interpretation Comments Eosinophils # (test code 0.4 See_Comment [A utomated message] The = Eosinophils #) system whic h generated this result tra nsmitted reference range : <=0.5. The reference r therese was not used to int erpret this result as normal/abnormal . [place] 574611-11-16 18:39:00 Test Item Value Reference Range Interpretation Comments Basophils # (test code 0.1 See_Comment [Aut omated message] The = Basophils #) system which generated this result tra nsmitted reference range : <=0.2. The reference r therese was not used to int erpret this result as normal/abnormal . [place] 574611-11-16 18:39:00 Test Item Value Reference Range Interpretation Comments WBC (test code = WBC) 7.3 3.7-10.4 [place] 574611-11-16 18:39:00 Test Item Value Reference Range Interpretation Comments RBC (test code = RBC) 4.01 4.20-5.40 [place] [address]-11-16 18:39:00 Test Item Value Reference Range Interpretation Comments Hgb (test code = Hgb) 11.8 12.0-16.0 [place] 574611-11-16 18:39:00 Test Item Value Reference Range Interpretation Comments Hct (test code = Hct) 35.1 36.0-48.0 [place] 574611-11-16 18:39:00 Test Item Value Reference Range Interpretation Comments MCV (test code = MCV) 87.5 80.0-98.0 [facility]gggjnDNKXAKTSIU0493-54-76 18:39:00 Test Item Value Reference Range Interpretation Comments MCH (test code = MCH) 29.5 pg 27.0-31.0 [facility]ZvqomjfMMWWRFXMAJ5697-82-66 18:39:00 Test Item Value Reference Range Interpretation Comments MCHC (test code = MCHC) 33.7 32.0-36.0 [facility]gn[facility]fXMSJQNTJSR1489-02-06 18:39:00 Test Item Value Reference Range Interpretation Comments RDW (test code = RDW) 13.6 11.5-14.5 [facility]ksxejsKVBMBKKDJV4068-11-85 18:39:00 Test Item Value Reference Range Interpretation Comments Platelet (test code = Platelet) 401 133-450 [facility]aDiednbmLNZYHSRAMR9777-40-54 18:39:00 Test Item Value Reference Range Interpretation Comments MPV (test code = MPV) 8.4 7.4-10.4 [facility] SouthKaiygbtAIJRBQBTXH8497-71-20 18:14:00 Test Item Value Reference Range Interpretation Comments Coronavirus (COVID-19) Not Detected BOBY (test code = *NA*(04/21/21 12:14 Coronavirus (COVID-19) PM) BOBY) [facility]zibojwVRBSJEKLWX8036-43-82 18:14:00 Test Item Value Reference Range Interpretation Comments Coronavirus (COVID-19) Not Detected BOBY (test code = *NA*(04/21/21 12:14 Coronavirus (COVID-19) PM) BOBY) [facility]YexwlvfIADPLTDXZV7615-01-95 18:14:00 Test Item Value Reference Range Interpretation Comments Coronavirus (COVID-19) Not Detected BOBY (test code = *NA*(04/21/21 12:14 Coronavirus (COVID-19) PM) BOBY) [facility] [Presence] in Respiratory specimen by BOBY with probe [id number] 22:16:13 Test Item Value Reference Range Interpretation Comments SARS-CoV-2 (COVID-19) RNA Not detected Not-Detected [Presence] in Respiratory specimen by BOBY with probe detection (test code = 37847-4) MARCO ANTONIO EASLEY BREWERY PUMPER IN OR/30 MINUTE [id number] 13:36:00 Reason for exam:->trigeminal neuralgiaFINAL REPORT Fluoroscopic exam Clinical History: trigeminal neuralgia Impression: Fluoroscopic assistance is provided for a procedure. The radiologist is not present during the procedure. Images are presented for interpretation at the completion of the procedure. Please refer to the procedure report for more details. Number of images obtained: 2 Fluoroscopy time: 49.6 seconds Signed: Turner Mistry Verified Date/Time: 04/05/2017 13:36:56 Reading Location: [facility] ConsultReading Room URINALYSIS W/ [id number] 15:26:00 Test Item Value Reference Range Interpretation Comments COLOR (BEAKER) (test code = 470) Yellow CLARITY (BEAKER) (test code = 469) Clear SPECIFIC GRAVITY UA (BEAKER) (test 1.005 1.001-1.035 code = 468) PH UA (BEAKER) (test code = 467) 7.0 5.0-8.0 PROTEIN UA (BEAKER) (test code = Negative Negative 464) GLUCOSE UA (BEAKER) (test code = Negative Negative 365) KETONES UA (BEAKER) (test code = Negative Negative 371) BILIRUBIN UA (BEAKER) (test code = Negative Negative 462) BLOOD UA (BEAKER) (test code = 461) Negative Negative NITRITE UA (BEAKER) (test code = Negative Negative 465) LEUKOCYTE ESTERASE UA (BEAKER) Negative Negative (test code = 466) UROBILINOGEN UA (BEAKER) (test code 0.2 mg/dL 0.2-1.0 = 463) RBC UA (BEAKER) (test code = 519) < /HPF WBC UA (BEAKER) (test code = 520) 1 /HPF SQUAMOUS EPITHELIAL (BEAKER) (test < /HPF code = 516) SOURCE(BEAKER) (test code = 2795) RAD, CHEST, 2 [id number] 15:00:00Reason for exam:->pre op testingFINAL REPORT PA and lateral chest: The cardiomediastinal silhouette and pulmonary vasculature are unremarkable. The lungs are clear. There is no radiographic evidence of active cardiopulmonary disease. Insofar as visualized, the regional skeleton appears intact. Signed: Cee Daniel Verified Date/Time: 04/04/2017 15:00:09 Reading Location: [address] Radiology Reading Room BASI METABOLIC [id number] 14:57:00 Test Item Value Reference Range Interpretation Comments SODIUM (BEAKER) 137 meq/L 136-145 (test code = 381) POTASSIUM (BEAKER) 3.7 meq/L 3.5-5.1 (test code = 379) CHLORIDE (BEAKER) 102 meq/L 98-107 (test code = 382) CO2 (BEAKER) (test 28 meq/L 22-29 code = 355) BLOOD UREA NITROGEN 6 mg/dL 7-21 L (BEAKER) (test code = 354) CREATININE (BEAKER) 0.71 mg/dL 0.57-1.25 (test code = 358) GLUCOSE RANDOM 82 mg/dL 70-105 (BEAKER) (test code = 652) CALCIUM (BEAKER) 9.6 mg/dL 8.4-10.2 (test code = 697) EGFR (BEAKER) (test 98 mL/min/1.73 ESTIMA PERLITA GFR IS code = 1092) sq m NOT ACCURATE CREATININE CLEARANCE IN PREDICTING GLOMERULAR FILTRATION RATE . ESTIMATED GFR I S NOT APPLICABLE FOR DIALYSIS PATIEN TS. [id number] 14:45:00 Test Item Value Reference Range Interpretation Comments PARTIAL THROMBOPLASTIN TIME 35.2 seconds 22.5-36.0 (BEAKER) (test code = 760) PROTHROMBIN TIME/[id number] 14:44:00 Test Item Value Reference Range Interpretation Comments PROTIME (BEAKER) (test code = 13.7 seconds 11.7-14.7 759) INR (BEAKER) (test code = 370) 1.1 <=5.9 RECOMMENDED COUMADIN/WARFARIN INR THERAPY RANGESSTANDARD DOSE: 2.0 - 3.0 Includes: PROPHYLAXIS for venous thrombosis, systemic embolization; TREATMENT for venous thrombosis and/or pulmonary embolus.HIGH RISK: Target INR is 2.5-3.5 for patients with mechanical heart valves.CBC W/PLT COUNT & AUTO [id number] 14:39:00 Test Item Value Reference Range Interpretation Comments WHITE BLOOD CELL COUNT (BEAKER) 6.5 K/ L 3.5-10.5 (test code = 775) RED BLOOD CELL COUNT (BEAKER) 4.32 M/ L 3.93-5.22 (test code = 761) HEMOGLOBIN (BEAKER) (test code = 12.7 GM/DL 11.2-15.7 410) HEMATOCRIT (BEAKER) (test code = 38.7 % 34.1-44.9 411) MEAN CORPUSCULAR VOLUME (BEAKER) 89.6 fL 79.4-94.8 (test code = 753) MEAN CORPUSCULAR HEMOGLOBIN 29.4 pg 25.6-32.2 (BEAKER) (test code = 751) MEAN CORPUSCULAR HEMOGLOBIN CONC 32.8 GM/DL 32.2-35.5 (BEAKER) (test code = 752) RED CELL DISTRIBUTION WIDTH 12.7 % 11.7-14.4 (BEAKER) (test code = 412) PLATELET COUNT (BEAKER) (test 309 K/CU MM 150-450 code = 756) MEAN PLATELET VOLUME (BEAKER) 9.9 fL 9.4-12.3 (test code = 754) NUCLEATED RED BLOOD CELLS 0 /100 WBC 0-0 (BEAKER) (test code = 413) NEUTROPHILS RELATIVE PERCENT 59 % (BEAKER) (test code = 429) LYMPHOCYTES RELATIVE PERCENT 30 % (BEAKER) (test code = 430) MONOCYTES RELATIVE PERCENT 9 % (BEAKER) (test code = 431) EOSINOPHILS RELATIVE PERCENT 1 % (BEAKER) (test code = 432) BASOPHILS RELATIVE PERCENT 1 % (BEAKER) (test code = 437) NEUTROPHILS ABSOLUTE COUNT 3.85 K/ L 1.56-6.13 (BEAKER) (test code = 670) LYMPHOCYTES ABSOLUTE COUNT 1.97 K/ L 1.18-3.74 (BEAKER) (test code = 414) MONOCYTES ABSOLUTE COUNT (BEAKER) 0.59 K/ L 0.24-0.36 H (test code = 415) EOSINOPHILS ABSOLUTE COUNT 0.03 K/ L 0.04-0.36 L (BEAKER) (test code = 416) BASOPHILS ABSOLUTE COUNT (BEAKER) 0.03 K/ L 0.01-0.08 (test code = 417) IMMATURE GRANULOCYTES-RELATIVE 0 % 0-1 PERCENT (BEAKER) (test code = 2801) BODY [id number] 21:47:00 Test Item Value Reference Range Interpretation Comments Crystal BF (test code Negative (01/05/17 4:47 = Crystal BF) PM) [facility] [id number] 21:47:00 Test Item Value Reference Range Interpretation Comments Crystal BF Type (test Synovial (01/05/17 4:47 code = Crystal BF PM) Type) [facility] [id number] 21:47:00 Test Item Value Reference Range Interpretation Comments Crystal BF (test code Negative (01/05/17 4:47 = Crystal BF) PM) [facility] [id number] 21:47:00 Test Item Value Reference Range Interpretation Comments Crystal BF Type (test Synovial (01/05/17 4:47 code = Crystal BF PM) Type) [facility] [id number] 21:47:00 Test Item Value Reference Range Interpretation Comments Crystal BF (test code Negative (01/05/17 4:47 = Crystal BF) PM) [facility] [id number] 21:47:00 Test Item Value Reference Range Interpretation Comments Crystal BF Type (test Synovial (01/05/17 4:47 code = Crystal BF PM) Type) [facility] Notes Date/Time Note Provider Source 2021-06-15 15:01:42-00:00 TESSY BERKOWITZ [facility] CONSULTATION ASHLIE HUERTAS FACILITY: [facility] Billing #: [id number] Room: [address] [place] [address] MR #: [id number] : 1945 DATE OF ADMISSION: 06/14/2021 DATE OF CONSULTATION: 06/15/2021 REQUESTING PHYSICIAN: Mayte Kumar MD REVENUE FIELD AGENT: Tessy Berkowitz MD ADDITIONAL REFERRING PHYSICIAN: Dr. Mateo Riley . REASON FOR REFERRAL: Pain management input and c ontribution. HISTORY OF PRESENT ILLNESS: The patient is a ple asant 75-year-old female with history of multiple scle rosis. Other comorbidities include, but not limited to, kidne y cancer. The patient is being followed by MD Stratton. The moreno calderón stated that she is on subtherapeutic dose of baclofen. Also stated that she is used to taking tramadol much more to lerable than [place], would like to have tramadol. The patient is complaining of right knee, had a knee replacement in 2018, a nd since that time, she has been having pain in the right knee , now feels pain is spreading to the left knee. During this visit, the patient desired to have her regimen optimized to help control pain. PAST MEDICAL HISTORY: As noted above. History of cancer of the kidney. The patient also has a history of br east cancer, history of multiple sclerosis, history of rapid heart rate. PAST SURGICAL HISTORY: Include, but not limited to, radiofrequency ablation of the trigeminal nerve on the right, appendectomy, back surgery, breast cancer surger y, lumpectomy, hysterectomy in 2007, nerve block in 2013, ovari an cyst surgery. Other surgical interventions noted incl ude radiofrequency thermocoagulation. ALLERGIES: NO KNOWN DRUG ALLERGIES. MEDICATIONS: Current medicines include, what has started by the care team, these include but not limited to: 1. Baclofen. 2. Rocephin. Other medicines include, but not limited to: 1. Diclofenac. 2. Cymbalta. 3. Lidocaine patch, one to the shoulder area on the left. 4. The patient is also on senna. 5. Docusate started by Pain Service. 6. Tramadol 50 mg 3 times, the patient was takin g 100 mg t.i.d. before admission. 7. Acetaminophen. 8. Effexor. 9. [place] 5/325 every 4 hours p.r.n. 10. Morphine sulfate 2 mg every 4 hours p.r.n. PHYSICAL EXAMINATION: GENERAL: The patient is not in any apparent dist ress. Family member at bedside. Nursing at bedside. VITAL SIGNS: Stable. HEENT: Within normal limits. NECK: Supple. CARDIOVASCULAR: Regular rate and rhythm. LUNGS: Clear to auscultation bilaterally. No whe dalia or rales. ABDOMEN: Benign. Positive bowel sounds. BACK: Spine midline. EXTREMITIES: Within normal limits. NEUROLOGIC: Limited, but nonfocal. LABORATORY DATA: Significant for CBC; WBC 12.4, H and H of 10.7 and 34, with platelet of 347,000. Chem prof ile; metabolic profile within normal limits except for chloride of 110. ASSESSMENT: Ashlie Huertas is a 75-year-old female with history of right knee surgery, history of right knee pain. The patient with comorbidities of multiple sclerosis and also kidney cancer. The patient is being followed by a neurologist. The patient also stated that she has been follo wed by MD Stratton for kidney cancer monitoring. The patie nt desired to take home regimen, which include, but not limite d to, baclofen 30 mg 3 times daily, tramadol 100 mg 3 times tori ly. The patient complained of some allodynia on the medi al aspect of right knee, stated that she was taking gabapenti n in the past up to 800 mg t.i.d., however, she was having junaid e muscle spasm with deep venous thrombosis and that was discont inued. Discussed with the patient about starting gabape ntin now at a low dose, 100 mg t.i.d., to see that will help w ith the allodynia. The patient agreed. However, there is some side effect to the 100 mg t.i.d. We will discontinue gabapentin and continue other regimen. Follow up with the atten ding physician conservatively. OEO/MODL /[id number] 2021-06-14 20:57:44-00:00 TRACEY MOFFETT [facility] CONSULTATION ASHLIE HUERTAS FACILITY: [facility] Billing #: [id number] Room: [address] [place] [address] MR #: [id number] : 1945 DATE OF ADMISSION: 06/14/2021 DATE OF CONSULTATION: 06/14/2021 REQUESTING PHYSICIAN: Mateo Riley MD REVENUE FIELD AGENT: Tracey Moffett MD REASON FOR CONSULTATION: Back pain. HISTORY OF PRESENT ILLNESS: This is a 75-year-ol d female with history of breast, ovarian, and left kidney canc er, multiple sclerosis on Ampyra and Kesimpta, trigeminal shelby ralgia, status post radiofrequency, thermocoagulation, who pres ents to the ER with back pain. The symptoms have been going on chronically, but have gotten worse over the past 1 day. Her c urrent pharmacotherapy has not been alleviating her jg n. Her back pain is located mostly in the bilateral hip area . 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 Laboratory data showed leukocytosis. Chest x-ray showed a right perihilar mass worrisome for malignancy. C T chest is pending. The patient states that her last multip le sclerosis relapse is unknown. Neurology was consulted for further evaluation. PAST MEDICAL HISTORY: As mentioned above. PAST SURGICAL HISTORY: Reviewed. MEDICATIONS: Reviewed. ALLERGIES: NKDA. SOCIAL HISTORY: The patient has history of tobac co use, but quit 32 years ago. Denies use of alcohol or illi cit drugs. FAMILY HISTORY: Noncontributory. REVIEW OF SYSTEMS: A 14-point review of system has been conducted a nd is essentially negative, except for the HPI. PHYSICAL EXAMINATION: VITAL SIGNS: Blood pressure 127/65, pulse 92, re spirations 18, and temperature 98.6. NEUROLOGIC: Mental status: The patient is awake, alert, and oriented x4. Does follow simple commands. Speech is fluent and comprehension is intact. Cranial nerves exam ination: Pupils are equal, round, and reactive to light b ilaterally. Extraocular movements are intact. Face does not show any obvious facial asymmetry. Motor examination: The patient is moving all of her extremities against gravity wi thout any obvious focal neurological deficits. Sensory exa mination: Gross cortical and peripheral sensations seem in tact. Coordination and gait testing: Deferred at this time. LABORATORY DATA AND IMAGING DATA: Have been revi ewed. ASSESSMENT: 1. Bilateral hip pain in the context of multifoc al malignancies including breast cancer, ovarian cancer, and lef t kidney cancer with a recently found right perihilar mass in th e right lung concerning for malignancy. 2. History of multiple sclerosis, on Ampyra and Kesimpta with no known recent exacerbations. RECOMMENDATIONS: 1. MRI of the bilateral hip joints with and with out contrast to evaluate for cancer mets to the sacrum and surro unding areas. 2. Agree with supportive treatment plan. 3. Pain management consultation is obtained, has been cleared by the primary care team. 4. We will continue following up with this patie nt closely. Dr. Moffett was personally present for the evaluati on and management of this patient. BRANDY/GABRIELLA /[id number] Dictated By: Maxwell Welch PA-C
--- NOTE | 2023-01-17 18:37 | RAD REPORT ---
EXAM DESCRIPTION: RAD - Chest Single View - 01/17/2023 6:27 pm CLINICAL HISTORY: DYSPNEA Chest pain. COMPARISON: <Comparisons> FINDINGS: Portable technique limits examination quality. Moderate right pleural effusion with right lung base infiltrate all which may represent pneumonia. Le ft lung appears grossly clear. The heart is moderately enlarged.
--- NOTE | 2023-01-17 18:38 | RAD REPORT ---
EXAM DESCRIPTION: CT - Head Brain Wo Cont - 01/17/2023 6:31 pm CLINICAL HISTORY: STROKE ALERT Headache, drowsiness. COMPARISON: <Comparisons> TECHNIQUE: All CT scans are performed using dose optimization technique as appropriate and may inclu de automated exposure control or mA/KV adjustment according to patient size. FINDINGS: No intracranial hemorrhage, hydrocephalus or extra-axial fluid collection.Mild brain atrop hy.No areas of brain edema or evidence of midline shift. The paranasal sinuses and mastoids are clear. The calvarium is intact. IMPRESSION: No acute intracranial abnormality.
[2023-01-17 19:14] LABS: Absolute Lymphocytes (CBC) 1.2 K/uL (0.7-4.9); Lymphocytes % 18.2 % (15.3-44.8); MCV 84.3 fL (80-100); MPV 8.7 fL (7.6-11.3); Platelets 270 thou/uL (152-406); RBC Red Blood Cell Count 3.91 M/uL (3.86-4.86)
[2023-01-17 19:18] LABS: Anisocytosis 1+; Blood Morphology Comment NOTED (NOT SEEN); Platelet Estimate ADEQ; White Blood Cell Scan OK (OK)
[2023-01-17 19:36] LABS: Albumin 3.5 g/dL (3.4-5.0); Bilirubin Direct 0.2 mg/dL (0-0.2); Bilirubin Indirect, Calculated 0.3 mg/dL (0.2-0.8); Bilirubin Total 0.5 mg/dL (0.2-1.0); Magnesium 2.4 mg/dL (1.6-2.4); Potassium 4.5 mEq/L (3.5-5.1); Protein, Total 7.9 g/dL (6.4-8.2); Troponin High Sensitivity 17.8 pg/mL (<58.9)
[2023-01-17 19:43] LABS: Protime INR 1.36
--- NOTE | 2023-01-17 20:11 | EDPHYS ---
Physician Documentation [facility] Name: Anel Aguirre Age: 77 yrs Sex: Female : 1945 Arrival Date: 01/17/2023 Time: 17:40 Bed 15 Private MD: ED Physician Raoul Stratton HPI: 01/17 18:35 This 77 yrs old Female presents to ER via Wheelchair with complaints of Doesn't Feel snw Right. 18:35 Onset: The symptoms/episode began/occurred acutely. It is unknown whether or not the snw patient has had similar symptoms in the past. It is unknown whether or not the patient has recently seen a physician. Pt lives in [place] and usually goes to [facility] there, Brother lives in [place] and really cannot give a history for the patient. 18:39 . snw Historical: - Allergies: 18:01 No Known Allergies; ph - Home Meds: 18:01 amiodarone 200 mg Oral tablet daily [Active]; Eliquis 5 mg oral tablet every 12 hours ph [Active]; atorvastatin 20 mg oral tablet every day at bedtime [Active]; baclofen 10 mg oral tablet 3 times per day [Active]; duloxetine 30 mg oral Capsule, Delayed Release Sprinkle 2 times per day [Active]; metoprolol succinate 25 mg oral Tablet, Extended Release 24 hr 0.5 tabs 2 times per day [Active]; pregabalin 50 mg Oral capsule 3 times per day [Active]; Entresto 24-26 mg oral tablet 2 times per day [Active]; Effexor XR 37.5 mg Oral Capsule, ER 24 hr every evening [Active]; - PMHx: 18:01 Multiple sclerosis; Pulmonary Embolism; Hypercholesterolemia; Hypertensive disorder; ph 18:15 Lung Cancer; ph 18:16 Breast Cancer; CKD; Renal mass; trigeminal neuralgia; ph - Immunization history:: Adult Immunizations unknown. - Social history:: Smoking status: Patient denies any tobacco usage or history of. ROS: 18:36 Eyes: Negative for injury, pain, redness, and discharge, ENT: Negative for injury, snw pain, and discharge, Neck: Negative for injury, pain, and swelling, Cardiovascular: Negative for chest pain, palpitations, and edema. 18:36 Abdomen/GI: Negative for abdominal pain, nausea, vomiting, diarrhea, and constipation, Back: Negative for injury and pain, : Negative for injury, bleeding, discharge, and swelling, MS/Extremity: Negative for injury and deformity, Skin: Negative for injury, rash, and discoloration, Psych: Negative for depression, anxiety, suicide ideation, homicidal ideation, and hallucinations. 18:36 Constitutional: Positive for malaise, poor PO intake. 18:36 Respiratory: Positive for shortness of breath. 18:36 Neuro: Positive for altered mental status. Exam: 18:33 Head/Face: Normocephalic, atraumatic. Eyes: Pupils equal round and reactive to light, snw extra-ocular motions intact. Lids and lashes normal. Conjunctiva and sclera are non-icteric and not injected. Cornea within normal limits. Periorbital areas with no swelling, redness, or edema. ENT: Nares patent. No nasal discharge, no septal abnormalities noted. Tympanic membranes are normal and external auditory canals are clear. Oropharynx with no redness, swelling, or masses, exudates, or evidence of obstruction, uvula midline. Mucous membranes moist. Neck: Trachea midline, no thyromegaly or masses palpated, and no cervical lymphadenopathy. Supple, full range of motion without nuchal rigidity, or vertebral point tenderness. No Meningismus. Chest/axilla: Normal chest wall appearance and motion. Nontender with no deformity. No lesions are appreciated. 18:33 Respiratory: Lungs have equal breath sounds bilaterally, clear to auscultation and percussion. No rales, rhonchi or wheezes noted. No increased work of breathing, no retractions or nasal flaring. Abdomen/GI: Soft, non-tender, with normal bowel sounds. No distension or tympany. No guarding or rebound. No evidence of tenderness throughout. Back: No spinal tenderness. No costovertebral tenderness. Full range of motion. Skin: Warm, dry with normal turgor. Normal color with no rashes, no lesions, and no evidence of cellulitis. 18:33 Constitutional: The patient appears awake, frail, unkempt. 18:33 Cardiovascular: Rate: normal, Rhythm: regular, Pulses: no pulse deficits are appreciated, Heart sounds: S3, increased, Edema: is not appreciated. 18:33 Musculoskeletal/extremity: Extremities: the patient is contracted, in the left ankle and right ankle, ROM: limited passive range of motion, in all extremities, Circulation is intact in all extremities. 18:33 Neuro: Orientation: to person, place, Mentation: able to follow commands, Memory: unable to test, Gait: not tested. Babinski testing is not performed, seizure activity, is not displayed by the patient. Vital Signs: 17:45 BP 118 / 84; Pulse 78; Resp 16; Pulse Ox 97% on R/A; db 17:59 BP 118 / 84; Pulse 80; Resp 20; Temp 97.2; Pulse Ox 94% on R/A; Weight 52.62 kg; Height ph 5 ft. 8 in. ; 18:00 BP 115 / 68; Pulse 84; Resp 16; Pulse Ox 99% on R/A; db 19:19 BP 117 / 79; Pulse 82; Resp 15 S; Pulse Ox 100% on R/A; lg3 20:30 BP 115 / 75; Pulse 79; Resp 19 S; Pulse Ox 99% on R/A; lg3 21:58 BP 109 / 88; Pulse 79; Resp 16; Pulse Ox 93% on R/A; oe 17:59 Body Mass Index 17.64 (52.62 kg, 172.72 cm) ph Demar Coma Score: 21:15 Eye Response: spontaneous(4). Motor Response: obeys commands(6). Verbal Response: amelia oriented(5). Total: 15. MDM: 17:50 Patient medically screened. snw 18:40 Differential Diagnosis altered mental status, sepsis, flu. Data reviewed: vital signs, snw nurses notes. Historians other than the Patient: Family Member: Brother, "". Transition of care: After a detail discussion of the patient's case, care is transferred to Raoul Stratton MD. 21:16 Consideration of Admission/Observation Patient was admitted/placed on observation. amelia Escalation of care including admission/observation considered. I considered the following discharge prescriptions or medication management in the emergency department Medications were administered in the Emergency Department. See MAR. Independent interpretation of the following test(s) in the Emergency Department EKG: See my EKG interpretation above. Test considered but Not performed: CT: no ct pe protocol. Care significantly affected by the following chronic conditions: Hypertension, Cancer, MS, PE, HIGH CHOLESTEROL, LUNG , BREAST AND RENAL CANCER. ED course: DR BENTON AWARE OF POST OBSTRUCTIVE IN LUNG CANCER PAT, OK TO ADMIT HERE, [place] OK. 01/17 18:04 Order name: Basic Metabolic Panel; Complete Time: 19:56 snw 01/17 18:04 Order name: CBC with Diff; Complete Time: 19:19 w 01/17 18:04 Order name: Hepatic Function; Complete Time: 19:56 snw 01/17 18:04 Order name: High Sensitivity Troponin; Complete Time: 19:56 snw 01/17 18:04 Order name: Magnesium; Complete Time: 19:56 w 01/17 18:04 Order name: Protime (+inr); Complete Time: 19:56 snw 01/17 18:04 Order name: Ptt, Activated; Complete Time: 19:56 w 01/17 19:18 Order name: CBC Smear Scan; Complete Time: 19:19 EDMS 01/17 19:28 Order name: Glucose, Ancillary Testing; Complete Time: 19:33 EDMS 01/17 19:57 Order name: Urinalysis w/ reflexes [facility] 01/17 19:58 Order name: Blood Culture Adult (2) [facility] 01/17 19:58 Order name: Lactate w/ 2H reflex if indic.; Complete Time: 08:15 [facility] 01/17 18:04 Order name: Stroke CXR 1 View; Complete Time: 18:40 [facility] 01/17 18:31 Order name: Head Brain Wo Cont; Complete Time: 18:40 EDMS 01/17 20:04 Order name: CT Chest Abdomen Pelvis W/O Contrast; Complete Time: 21:10 [facility] 01/17 18:04 Order name: EKG; Complete Time: 18:05 [facility] 01/17 18:04 Order name: Accucheck; Complete Time: 19:16 [facility] 01/17 18:04 Order name: Cardiac monitoring; Complete Time: 18:06 w 01/17 18:04 Order name: EKG - Nurse/Tech; Complete Time: 18:06 [facility] 01/17 18:04 Order name: IV Saline Lock; Complete Time: 18:06 [facility] 01/17 18:04 Order name: Labs collected and sent; Complete Time: 19:13 [facility] 01/17 18:04 Order name: NPO; Complete Time: 19:16 [facility] 01/17 18:04 Order name: O2 Per Protocol; Complete Time: 19:13 snw 01/17 18:04 Order name: O2 Sat Monitoring; Complete Time: 19: snw 01/17 18:04 Order name: Stroke Swallow Screen; Complete Time: : snw 01/17 19:18 Order name: Misc. Order: RECOLLECT LIGHT BLUE; Complete Time: : rv1 EC:55 Rate is 79 beats/min. Rhythm is regular. NH interval is normal. QRS interval is normal. snw QT interval is prolonged. T waves are Inverted in leads II, III, aVF, V4, V5, V6. Clinical impression: NSR w/ Non-specific ST/T Changes. Administered Medications: 21:47 Drug: Famotidine IVP 20 mg Route: IVP; Site: right forearm; lg3 22:01 Follow up: Response: No adverse reaction lg3 21:47 Drug: Meropenem IV 1 grams Route: IV; Rate: per protocol; Site: right forearm; lg3 22:01 Follow up: Response: No adverse reaction; IV Status: Completed infusion; IV Intake: lg3 100ml 22:24 Drug: NS 0.9% IV 500 ml Route: IV; Rate: bolus; Site: right forearm; lg3 22:48 Follow up: Response: No adverse reaction; IV Status: Completed infusion; IV Intake: lg3 500ml Disposition: 20:10 Co-signature as Attending Physician, Raoul Stratton MD I agree with the assessment and amelia plan of care. Disposition Summary: 01/17/23 20:10 Hospitalization Ordered Hospitalization Status: Inpatient Admission amelia Provider: Dallas Riley cha [facility] amelia Condition: Fair amelia Problem: new amelia Symptoms: have improved amelia Bed/Room Type: Standard amelia Room Assignment: 430(01/17/23 22:32) eb1 Diagnosis - Multiple sclerosis amelia - Weakness amelia - Pleural effusion in other conditions classified elsewhere amelia - Unspecified kidney failure amelia - Anemia, unspecified amelia - Unspecified combined systolic (congestive) and diastolic (congestive) heart failure amelia - halfway (current) use of anticoagulants amelia - Pneumonia due to other specified bacteria - post obstructive amelia - Malignant neoplasm of lower lobe, right bronchus or lung amelia - Dyspnea, unspecified amelia Forms: - Medication Reconciliation Form amelia - SBAR form amelia - Leadership Thank You Letter amelia Signatures: Dispatcher [employer] EDMS Raoul Stratton MD MD cha Waters, Shelly, HEALTHCARE PROF-C HEALTHCARE PROF-Csnw Karlo Salinas FNP-C HEALTHCARE PROF-Cla1 Jana Lockhart, RN RN nate Rebolledo, Negin, RN ALYSHA eb1 Brandie Joiner, ALYSHA ENCARNACION lg3 Laz, Ally rv1 Corrections: (The following items were deleted from the chart) 18:31 18:05 CT-STROKE BRAIN W/O CONTRAST+CT.RAD.BRZ ordered. EDMS EDMS 22:32 20:10 amelia fowler
--- NOTE | 2023-01-17 20:11 | ER ---
Nurse's Notes [facility] Name: Anel Aguirre Age: 77 yrs Sex: Female : 1945 Arrival Date: 01/17/2023 Time: 17:40 Bed 15 [facility] MD: Diagnosis: Multiple sclerosis;Weakness;Pleural effusion in other conditions classified elsewhere;Unspecified kidney failure;Anemia, unspecified;Unspecified combined systolic (congestive) and diastolic (congestive) heart failure;assisted (current) use of anticoagulants;Pneumonia due to other specified bacteria-post obstructive;Malignant neoplasm of lower lobe, right bronchus or lung;Dyspnea, unspecified Presentation: 01/17 17:59 Chief complaint: Spouse and/or significant other states: Fatigue, generalized weakness ph and SOB x approx 3 days. Coronavirus screen: Vaccine status: Patient reports receiving the 2nd dose of the covid vaccine. Ebola Screen: No symptoms or risks identified at this time. Initial Sepsis Screen: Does the patient meet any 2 criteria? No. Patient's initial sepsis screen is negative. Does the patient have a suspected source of infection? No. Patient's initial sepsis screen is negative. Risk Assessment: Do you want to hurt yourself or someone else? Patient reports no desire to harm self or others. Onset of symptoms was January 17, 2023. 17:59 Method Of Arrival: Wheelchair ph 17:59 Acuity: WILLIAM 2 ph Historical: - Allergies: 18:01 No Known Allergies; ph - Home Meds: 18:01 amiodarone 200 mg Oral tablet daily [Active]; Eliquis 5 mg oral tablet every 12 hours ph [Active]; atorvastatin 20 mg oral tablet every day at bedtime [Active]; baclofen 10 mg oral tablet 3 times per day [Active]; duloxetine 30 mg oral Capsule, Delayed Release Sprinkle 2 times per day [Active]; metoprolol succinate 25 mg oral Tablet, Extended Release 24 hr 0.5 tabs 2 times per day [Active]; pregabalin 50 mg Oral capsule 3 times per day [Active]; Entresto 24-26 mg oral tablet 2 times per day [Active]; Effexor XR 37.5 mg Oral Capsule, ER 24 hr every evening [Active]; - PMHx: 18:01 Multiple sclerosis; Pulmonary Embolism; Hypercholesterolemia; Hypertensive disorder; ph 18:15 Lung Cancer; ph 18:16 Breast Cancer; CKD; Renal mass; trigeminal neuralgia; ph - Immunization history:: Adult Immunizations unknown. - Social history:: Smoking status: Patient denies any tobacco usage or history of. Screenin:[address] [facility] ED Fall Risk Assessment (Adult) History of falling in the last 3 months, db including since admission No falls in past 3 months (0 pts) Confusion or Disorientation No (0 pts) Intoxicated or Sedated No (0 pts) Impaired Gait No (0 pts) Mobility Assist Device Used No (0 pt) Altered Elimination No (0 pt) Score/Fall Risk Level 0 - 2 = Low Risk Oriented to surroundings, Maintained a safe environment. Abuse screen: Denies threats or abuse. Denies injuries from another. Nutritional screening: No deficits noted. Tuberculosis screening: No symptoms or risk factors identified. Assessment: 18:24 Reassessment: PT TO CT. db 18:50 Reassessment: Patient appears in no apparent distress at this time. Patient and/or db family updated on plan of care and expected duration. Pain level reassessed. Patient is alert, oriented x 3, equal unlabored respirations, skin warm/dry/pink. PATIENT STATES FEELS GENERAL WEAKNESS. 19:16 General: Appears in no apparent distress. comfortable, Behavior is calm, cooperative. db Pain: Denies pain. Neuro: Level of Consciousness is awake, alert, obeys commands, Oriented to person, place, time, situation. Musculoskeletal: Capillary refill Range of motion: intact in all extremities. 19:19 General: Appears in no apparent distress. comfortable, Behavior is calm, cooperative. lg3 Pain: Denies pain. Neuro: Mcallister Agitation-Sedation Scale (RASS): 0 - Alert and Calm Level of Consciousness is awake, alert, obeys commands, Oriented to person, place, time, situation, Reports weakness. Cardiovascular: No deficits noted. Denies chest pain, Capillary refill < 3 seconds Clubbing of nail beds is absent JVD is absent Patient's skin is warm and dry. Respiratory: No deficits noted. Airway is patent Respiratory effort is even, unlabored, Respiratory pattern is regular, symmetrical. GI: No deficits noted. No signs and/or symptoms were reported involving the gastrointestinal system. Abdomen is flat, non-distended. : No deficits noted. No signs and/or symptoms were reported regarding the genitourinary system. EENT: No deficits noted. No signs and/or symptoms were reported regarding the EENT system. Derm: No deficits noted. No signs and/or symptoms reported regarding the dermatologic system. Skin is intact, is thin, Skin is dry, Skin is normal, Skin temperature is warm. Musculoskeletal: Circulation, motion, and sensation intact. Range of motion: intact in all extremities, Reports generalized weakness. 20:10 General: notified lab of needed blood draw. lg3 21:11 General: notified lab via text of needed blood draw. lg3 21:19 Reassessment: Patient appears in no apparent distress at this time. No changes from lg3 previously documented assessment. Patient and/or family updated on plan of care and expected duration. Pain level reassessed. Patient is alert, oriented x 3, equal unlabored respirations, skin warm/dry/pink. Vital Signs: 17:45 BP 118 / 84; Pulse 78; Resp 16; Pulse Ox 97% on R/A; db 17:59 BP 118 / 84; Pulse 80; Resp 20; Temp 97.2; Pulse Ox 94% on R/A; Weight 52.62 kg; Height ph 5 ft. 8 in. ; 18:00 BP 115 / 68; Pulse 84; Resp 16; Pulse Ox 99% on R/A; db 19:19 BP 117 / 79; Pulse 82; Resp 15 S; Pulse Ox 100% on R/A; lg3 20:30 BP 115 / 75; Pulse 79; Resp 19 S; Pulse Ox 99% on R/A; lg3 21:58 BP 109 / 88; Pulse 79; Resp 16; Pulse Ox 93% on R/A; oe 17:59 Body Mass Index 17.64 (52.62 kg, 172.72 cm) ph [place] Coma Score: 21:15 Eye Response: spontaneous(4). Motor Response: obeys commands(6). Verbal Response: amelia oriented(5). Total: 15. ED Course: 17:42 Patient arrived in ED. im 17:48 Maricruz Killian FNP-C is PHCP. snw 17:48 Unruly Lanza DO is Attending Physician. snw 18:01 Triage completed. ph 18:06 Sarah Wheeler, RN is Primary Nurse. db 18:08 Arm band placed on Patient placed in an exam room, on a stretcher, on monitoring coordinator, ph on pulse oximetry. 18:29 Stroke CXR 1 View In Process Unspecified. EDMS 18:31 Head Brain Wo Cont In Process Unspecified. EDMS 19:00 Missed attempt(s): 20 gauge in right antecubital area. bc6 19:13 Basic Metabolic Panel Sent. bc6 19:13 CBC with Diff Sent. bc6 19:13 Hepatic Function Sent. bc6 19:13 High Sensitivity Troponin Sent. bc6 19:13 Magnesium Sent. bc6 19:13 Protime (+inr) Sent. bc6 19:13 Ptt, Activated Sent. bc6 19:13 Missed attempt(s): 22 gauge in left antecubital area. bc6 19:18 Inserted saline lock: 22 gauge in right forearm, using aseptic technique. lg3 19:19 Patient has correct armband on for positive identification. Placed in gown. Bed in low lg3 position. Call light in reach. Side rails up X 1. Client placed on continuous cardiac and pulse oximetry monitoring. NIBP monitoring applied. school bus monitor on. Door closed. Noise minimized. Warm blanket given. Family accompanied patient. 19:19 Patient maintains SpO2 saturation greater than 95% on room air. lg3 19:20 Raoul Stratton MD is Attending Physician. snw 20:05 Dallas Riley MD is Hospitalizing Provider. [facility] 21:00 CT Chest Abdomen Pelvis W/O Contrast In Process Unspecified. EDMS 21:47 Lactate w/ 2H reflex if indic. Sent. lg3 21:47 Blood Culture Adult (2) Sent. lg3 21:51 Primary Nurse role handed off by Sarah Wheeler, RN rv1 22:24 Brandie Joiner, ALYSHA is Primary Nurse. lg3 22:55 No provider procedures requiring assistance completed. Patient admitted, IV remains in lg3 place. intact, No redness/swelling at site. Administered Medications: 21:47 Drug: Famotidine IVP 20 mg Route: IVP; Site: right forearm; lg3 22:01 Follow up: Response: No adverse reaction lg3 21:47 Drug: Meropenem IV 1 grams Route: IV; Rate: per protocol; Site: right forearm; lg3 22:01 Follow up: Response: No adverse reaction; IV Status: Completed infusion; IV Intake: lg3 100ml 22:24 Drug: NS 0.9% IV 500 ml Route: IV; Rate: bolus; Site: right forearm; lg3 22:48 Follow up: Response: No adverse reaction; IV Status: Completed infusion; IV Intake: lg3 500ml Medication: 22:56 VIS not applicable for this client. lg3 Intake: 22:01 IV: 100ml; Total: 100ml. lg3 22:48 IV: 500ml; Total: 600ml. lg3 Outcome: 20:10 Decision to Hospitalize by Provider. amelia 22:55 Admitted to Med/surg accompanied by tech, via stretcher, room 430. lg3 22:56 Condition: stable lg3 22:56 Instructed on the need for admit, Demonstrated understanding of instructions. 22:57 Patient left the ED. lg3 Signatures: Dispatcher [employer] EDMS Raoul Stratton MD MD cha Waters, Shelly, ROCKET ENGINE COMPONENT MECHANIC-C ROCKET ENGINE COMPONENT MECHANIC-Csnw Jana Lockhart, RN RN Jaime Kaur Lacie, RN RN 3 Sarah Wheeler RN RN Ally Odom rv1 Kay Mason 6 Heather Fragoso Corrections: (The following items were deleted from the chart) 19:17 18:50 Reassessment: Patient appears in no apparent distress at this time. LAB db ELEVATOR OPERATOR SERVICE AT BEDSIDE FOR BLOOD DRAW DUE TO DIFFICULT ACCESS. PATIENT PORT ACCESSED AND WILL FLUSH BUT NOT DRAW BLOOD db
--- NOTE | 2023-01-17 21:09 | RAD REPORT ---
EXAM DESCRIPTION: CT - Chest Abd Pelvis Wo Con - 01/17/2023 8:58 pm CLINICAL HISTORY: Chest and abdomen pain. DYSPNEA COMPARISON: <Comparisons> TECHNIQUE: Limited noncontrast study. All CT scans are performed using dose optimization technique as appropriate and may include automated exposure control or mA/KV adjustment according to patient size. FINDINGS: There is evidence of a soft tissue mass lesion in the right hilum. Mild postobstructive pn eumonitis is present as well. Moderate right pleural effusion.Trace left pleural fluid.[id number] te cardiomegaly. The liver, spleen, pancreas, adrenal glands and kidneys are within normal limits. No bowel obstruction, free air, free fluid or abscess. Nonvisualized appendix. There is a large volum e of stool in the colon. No pathologic lymphadenopathy in the abdomen or pelvis. Moderate lumbar degenerative spondylosis. IMPRESSION: Moderate right pleural effusion.Right hilar soft tissue masslike lesion with postobstruc tive pneumonitis. Full assessment is limited by lack of IV contrast material.
[2023-01-17] MEDS ORDERED: Meropenem 1000 MG/VIAL IV ONE (21:39)
[2023-01-17] MEDS ORDERED: NA CHLORIDE 0.9% 100 ML ONE (21:39)
[2023-01-17] MEDS ORDERED: FAMOTIDINE 20 MG/2 ML VIAL IV ONE (21:40)
[2023-01-17] MEDS ORDERED: NA CHLORIDE 0.9% 500 ML ONE (22:19)
[2023-01-17] MEDS ORDERED: ONDANSETRON 4 MG/2 ML VIAL IV PRN (22:39)
[2023-01-17] MEDS ORDERED: ALBUTEROL 2.5 MG/3 ML NEB SOL NEB PRN (22:39)
--- NOTE | 2023-01-17 22:39 | P.HP ---
Certification for Inpatient Patient admitted to: Inpatient With expected LOS: >2 Midnights Patient will require the following post-hospital care: None Practitioner: I am a practitioner with admitting privileges, knowledge of patient current condition, hospital course, and medical plan of care. Services: Services provided to patient in accordance with Admission requirements found in Title 42 Section 412.3 of the Code of Federal Regulations Patient History Date of Service: 01/17/23 Reason for admission: Pneumonia, pleural effusion History of Present Illness: 77-year-old female with history of MS, PE on chronic anticoagulation, history of lung cancer, hypertension, hyperlipidemia presents emergency department with chief complaint of AMS, shortness of breath. She is currently oriented x2 which is not her baseline, family at bedside relatively poor historian although eventually able to discern that patient was admitted at [facility] for the last 2 weeks discharged on the 11 back home where she has been staying with her family member, prior to admission at [facility] she was at [facility] for approximately 3 weeks. It is unclear what exactly went on while she was at [facility] family seems to think she had a small stroke at the time. She has been acting "off" for the past 48 hours or so he describes a similar episode when she last went to the hospital with an infection of some kind. She was evaluated here in the emergency department her labs were significant for hemoglobin 10.4 hematocrit 33.0 creatinine 1.45 GFR 37 glucose 141 lactic acid 3.1 AST 69 ALT [address] head was negative for acute findings CT chest abdomen pelvis without contrast was performed which revealed moderate right pleural effusion. Right hilar soft tissue masslike lesion with postobstructive pneumonitis. ED physician discussed case with pulmonology on-call who recommended antibiotics, possible bronc. Patient and family at bedside not sure if this mass is new or something that she has been told of in the past, she was apparently diagnosed with cancer initially approximate 1 year ago and had 1 round of chemotherapy, they are not sure what the current treatment plan is or if there is one. Allergies No Known Allergies Allergy (Unverified 01/17/23 22:17) - Past Medical/Surgical History -: Lung cancer -: PE -: MS -: Hypertension -: Hyperlipidemia -: Unknown Psychosocial/ Personal History: Patient currently lives at home with a family member, recently discharged from [facility]. - Family History Family History: Reviewed- Non-Contributory - Social History Smoking Status: Never smoker Alcohol use: No CD- Drugs: No Caffeine use: No Place of Residence: Home Review of Systems 10-point ROS is otherwise unremarkable General: As per HPI Neurological: Confusion, As per HPI Physical Examination - Physical Exam General: Alert, In no apparent distress, Oriented x3 HEENT: Atraumatic, PERRLA, Mucous membr. moist/pink, EOMI, Sclerae nonicteric Neck: Supple, 2+ carotid pulse no bruit, No LAD, Without JVD or thyroid abnormality Respiratory: Diminished, Crackles/rales Cardiovascular: No edema, Regular rate/rhythm, Normal S1 S2 Capillary refill: <2 Seconds Gastrointestinal: Normal bowel sounds, No tenderness Musculoskeletal: No tenderness Integumentary: No rashes Neurological: Normal gait, Normal speech, Normal strength at 5/5 x4 extr, Normal tone, Normal affect Lymphatics: No axilla or inguinal lymphadenopathy - Studies Laboratory Data (last 24 hrs) 01/17/23 01/17/23 01/17/23 19:27 19:00 19:00 WBC 6.50 Hgb 10.4 L Hct 33.0 L Plt Count 270 PT 15.0 H INR 1.36 APTT 37.7 H Sodium 136 Potassium 4.5 BUN 26 H Creatinine 1.45 H Glucose 141 H Magnesium 2.4 Total Bilirubin 0.5 AST 69 H ALT 121 H Alkaline Phosphatase 138 H Assessment and Plan - Plan Assessment: Dyspnea, right pleural effusion with mass/postobstructive pneumonitis Suspected metabolic encephalopathy secondary to pneumonia/pneumonitis History of PE on chronic anticoagulation Hypertension Hyperlipidemia History of CVA, A-fib? Plan: Dyspnea, right pleural effusion with mass/postobstructive pneumonitis Suspected metabolic encephalopathy secondary to pneumonia/pneumonitis 0/4 SIRS criteria present currently. Lactate 3.1. Will give gentle IV fluid bolus considering presence of pleural effusion. Pulmonology consulted continue antibioticsZosyn at this time. N.p.o. at midnight, possible bronc. Unclear history, patient from out of town, family poor historian overall. Continue antibiotics, blood cultures obtained. History of PE on chronic anticoagulation Continue Eliquis. Hypertension Hold antihypertensive agents for now, restart appropriate. Hyperlipidemia Continue home medications. History of CVA, A-fib, chronic systolic congestive heart failure? Family states she may have been told she had a stroke in the past, she takes amiodarone and Eliquis presumably for arrhythmia/A-fib but again family is unclear. She is also apparently on Entresto likely for systolic congestive heart failure but no records available for review and family unclear. Continue home medications. Will give gentle diuresis considering pleural effusion. DVT PPX: Continue Eliquis Code status: Full code Discharge Plan: Home Plan to discharge in: Greater than 2 days - Advance Directives Does patient have a Living Will: No Does patient have a Durable POA for Healthcare: No - Code Status/Comfort Care Code Status Assessed: Yes (Full code) Critical Care: No Time Spent Managing Pts Care (In Minutes): 70
[2023-01-17] MEDS: PIPER TAZO 3.375 GM in NA CHLORIDE 0.9% 100 ML IV SCH (23:39)
[2023-01-18 01:08] VITALS: BMI 19.7
[2023-01-18 07:33] LABS: Absolute Lymphocytes (CBC) 1.6 K/uL (0.7-4.9); Lymphocytes % 24.8 % (15.3-44.8); MCV 84.3 fL (80-100); MPV 8.7 fL (7.6-11.3); Platelets 232 thou/uL (152-406); RBC Red Blood Cell Count 3.79 M/uL (3.86-4.86)
[2023-01-18 07:52] LABS: Albumin 3.3 g/dL (3.4-5.0); Bilirubin Total 0.6 mg/dL (0.2-1.0); Potassium 4.4 mEq/L (3.5-5.1); Protein, Total 7.2 g/dL (6.4-8.2)
[2023-01-18] MEDS: PIPER TAZO 3.375 GM in NA CHLORIDE 0.9% 100 ML IV SCH ×2 (09:18→17:43)
[2023-01-18] MEDS: FUROSEMIDE 20 MG/ 2ML VIAL IV SCH ×2 (09:19→17:44)
[2023-01-18] MEDS: AMIODARONE HCL 200 MG TAB PO SCH (09:20)
[2023-01-18] MEDS: SACUBITRIL/VALSARTAN 24/26 MG TAB PO SCH ×2 (09:20→20:27)
[2023-01-18] MEDS: APIXABAN 5 MG TABLET PO SCH ×2 (09:20→20:27)
--- NOTE | 2023-01-18 12:38 | P.CNS ---
Date of Consult: 01/18/23 Reason for Consult: Abnormal chest x-ray altered mental status Chief Complaint: Pneumonia, pleural effusion History of Present Illness: Patient is 77 years of age with a history of multiple sclerosis brother at the bedside patient developed altered mental status hallucinations for the past 2 days baseline she lives by herself mobilizes on electrical wheelchair has multiple sclerosis to manage her activities of daily living has been out of the in and out of the hospital has a history of lung cancer was at [facility] and was also in [facility] is discharged recently possible history of some fever Allergies No Known Allergies Allergy (Unverified 01/17/23 22:17) Home Medications: Amiodarone HCl [Cordarone Tab] 200 mg PO DAILY 01/18/23 Apixaban [Eliquis] 5 mg PO BID 01/18/23 Atorvastatin Calcium [Lipitor] 20 mg PO BEDTIME 01/18/23 Baclofen 10 mg PO TID 01/18/23 Duloxetine HCl 30 mg PO BID 01/18/23 Metoprolol Succinate 12.5 mg PO BID 01/18/23 Pregabalin 50 mg PO TID 01/18/23 Sacubitril/Valsartan [Entresto 24 mg-26 mg Tablet] 1 tab PO BID 01/18/23 Venlafaxine HCl [Effexor XR] 37.5 mg PO BEDTIME 01/18/23 - Past Medical/Surgical History Diabetic: No -: Lung cancer -: PE -: MS -: Hypertension -: Hyperlipidemia -: Unknown Psychosocial/ Personal History: Patient currently lives at home with a family member, recently discharged from [facility]. - Social History Smoking Status: Former smoker Alcohol use: No CD- Drugs: No Caffeine use: No Place of Residence: Home Review of Systems is unable to be obtained Physical Examination Temp Pulse Resp BP Pulse Ox 98.0 F 76 16 106/63 100 01/18/23 08:00 01/18/23 09:19 01/18/23 08:00 01/18/23 09:19 01/18/23 08:00 General: Alert, Oriented x1, Cooperative Respiratory: Diminished (At the right base with some crackles) Cardiovascular: No edema, Regular rate/rhythm, Normal S1 S2 Gastrointestinal: Normal bowel sounds, Soft and benign Laboratory Data (last 24 hrs) 01/17/23 01/17/23 01/17/23 19:27 19:00 19:00 WBC 6.50 Hgb 10.4 L Hct 33.0 L Plt Count 270 PT 15.0 H INR 1.36 APTT 37.7 H Sodium 136 Potassium 4.5 BUN 26 H Creatinine 1.45 H Glucose 141 H Magnesium 2.4 Total Bilirubin 0.5 AST 69 H ALT 121 H Alkaline Phosphatase 138 H - Problems (1) Altered mental status Current Visit: Yes Status: Acute Plan: Patient is 77 years of age multiple medical problems admitted with altered mental status hallucinations brother at the bedside otherwise she is very alert does not make any sense during that patient was living by herself at baseline using electric wheelchair able to take care of her activities of daily living has been in and out of the hospitals including [facility] data shows oral effusion right hilar changes I suspect is from her lung cancer he was treated at [facility] she also has chronic renal failure elevated lactic acid abnormal LFTs mildly anemia otherwise her vital signs are stable lactic acid is elevated cannot exclude the possibility of and pneumonia. States she also has congestive heart failure by the medication list patient lives in [place] and apparently staying here with her sibling Qualifiers: Altered mental status type: disorientation Qualified Code(s): R41.0 - Disorientation, unspecified
[2023-01-18] MEDS ORDERED: ALPRAZOLAM 0.25 MG TABLET PO ONE (12:45)
[2023-01-18] MEDS ORDERED: LORazepam 2 MG/ML VIAL IV ONE (15:55)
[2023-01-18] MEDS ORDERED: LORazepam 2 MG/ML VIAL ONE (16:03)
--- NOTE | 2023-01-18 17:03 | EKG ---
Test Date: 2023-01-17 Test Time: 17:54:43 Pipe Foreman: NA MEASUREMENT RESULTS: Intervals: Rate: 79 LA: 182 QRSD: 108 QT: 434 QTc: 497 [place]: P: 3 LA: 182 QRS: 81 T: 266 INTERPRETIVE STATEMENTS: Normal sinus rhythm Left ventricular hypertrophy with repolarization abnormality Prolonged QT Abnormal ECG No previous ECG available for comparison Electronically Signed On 01-18-23 17:01:[address] Angel
--- NOTE | 2023-01-18 17:47 | P.PN ---
Subjective Date of Service: 01/18/23 Chief Complaint: Pneumonia, pleural effusion No acute events overnight. She is demonstrating word-finding difficulty. Per her brother at bedside, this has been going on for several days. He reports that she was diagnosed with stage III lung cancer about one year ago and she received c hemotherapy and radiation at [facility], completing therapy "a couple months ago." No further history is available at this time. Review of Systems is unable to be obtained Physical Examination - Vital Signs Temperature: 97.3 F Blood Pressure: 110/65 Pulse: 79 Respirations: 16 Pulse Ox (%): 97 - Physical Exam General: Alert, Oriented x1, Other (word-finding difficulty) HEENT: Atraumatic, Mucous membr. moist/pink, Sclerae nonicteric Neck: JVD not distended Respiratory: Diminished, Rhonchi/gurgles (right-sided) Cardiovascular: No edema, Regular rate/rhythm, Normal S1 S2, No gallops, No rubs, No murmurs Gastrointestinal: Normal bowel sounds, Soft and benign, Non-distended, No tenderness, No rebound, No guarding Musculoskeletal: No clubbing Integumentary: No rashes Neurological: Normal speech, Normal affect, Other (word-finding difficulty) - Studies Laboratory Data (last 24 hrs) 01/17/23 01/17/23 01/17/23 19:27 19:00 19:00 WBC 6.50 Hgb 10.4 L Hct 33.0 L Plt Count 270 PT 15.0 H INR 1.36 APTT 37.7 H Sodium 136 Potassium 4.5 BUN 26 H Creatinine 1.45 H Glucose 141 H Magnesium 2.4 Total Bilirubin 0.5 AST 69 H ALT 121 H Alkaline Phosphatase 138 H Assessment And Plan - Plan # Suspected Post-Obstructive Pneumonia with history of Stage III Lung Cancer # Acute Toxic Metabolic Encephalopathy secondary to above # History of Stage III Lung Cancer s/p Chemoradiation - Evaluation thus far: - Does not meet sepsis criteria - Chest x-ray = "moderate right pleural effusion with right lung base infiltrate all which may represent pneumonia. Left lung appears grossly clear. The heart is moderately enlarged." - CT head = "no acute intracranial abnormality." - CT chest/abdomen/pelvis = "moderate right pleural effusion.Right hilar soft tissue masslike lesion with postobstructive pneumonitis." - Management plan: - Consulted Pulmonology - recommendations appreciated - Consulted Respiratory Therapy - Supplemental oxygen to maintain SpO2 > 92% - Continue piperacillin-tazobactam - Ordered MRI to evaluate for cerebrovascular accidents vs intracranial metastases # History of Cerebrovascular Accident # Chronic Atrial Fibrillation # Hypertension # Hyperlipidemia - Continue home amiodarone, apixaban # History of Pulmonary Embolism - Continue home apixaban # Chronic Congestive Heart Failure - suspect Systolic - No evidence of CHF exacerbation Ordered transthoracic echocardiogram - Continue home valsartan-sacubutril # Multiple Sclerosis - Reconcile home medications once verified Dallas Riley M.D.
--- NOTE | 2023-01-18 18:19 | RAD REPORT ---
EXAM DESCRIPTION: US - Liver Only - 01/18/2023 5:22 pm CLINICAL HISTORY: elevated LFTs. evaluate for metastases COMPARISON: Chest Abd Pelvis Wo Con dated 01/17/2023 TECHNIQUE: Sonographic grayscale and color flow images of the upper abdomen were obtained. FINDINGS: Liver demonstrates homogeneous echotexture and normal echogenicity. No focal lesions. Hepa topetal flow appreciated in the main portal vein. The liver demonstrates no findings of intrahepatic biliary dilatation. Incidentally noted layering right pleural effusion. Spleen is difficult to visualize. IMPRESSION: Normal sonographic evaluation of the liver. Incidentally noted layering right pleural effusion.
--- NOTE | 2023-01-18 18:58 | RAD REPORT ---
EXAM DESCRIPTION: MRI - Brain Wo Cont - 01/18/2023 5:27 pm CLINICAL HISTORY: making sure cancer has not spread COMPARISON: Head CT 01/17/2023 TECHNIQUE: Multiplanar multisequence MRI of the brain performed without IV contrast. FINDINGS: Motion artifact markedly limits evaluation, despite attempts at repeat imaging. No evidence of acute infarct or other diffusion signal abnormality. No evidence of acute intracranial hemorrhage or abnormal extra-axial fluid collections. Mild diffuse parenchymal volume loss. Ventricular caliber otherwise within normal for age. And sella with mild sellar expansion again seen. Midline structures are otherwise unremarkable. Subtle periventricular and deep white matter T2/FLAIR hyperintensities, nonspecific, but suggestive o f chronic small vessel ischemic changes. No mass effect, edema, or midline shift. Major vascular flow voids are preserved. Mastoid air cells and paranasal sinuses are clear. IMPRESSION: No acute intracranial process within limits of motion artifact. No evidence of ventricul omegaly, edema, or mass effect. Given the degree of motion and patient's condition, postcontrast sequences were not performed. Once t he patient condition improves, or septic administered, additional post contrast scanning can be perfo rmed.
[2023-01-18] MEDS: ATORVASTATIN 20 MG TAB PO SCH (20:27)
[2023-01-19] MEDS: PIPER TAZO 3.375 GM in NA CHLORIDE 0.9% 100 ML IV SCH ×2 (00:45→09:31)
[2023-01-19 07:13] LABS: Absolute Lymphocytes (CBC) 1.5 K/uL (0.7-4.9); Hematocrit 30.4 % (36.0-45.0); Lymphocytes % 25.2 % (15.3-44.8); MCV 83.6 fL (80-100); MPV 8.6 fL (7.6-11.3); Platelets 210 thou/uL (152-406); RBC Red Blood Cell Count 3.63 M/uL (3.86-4.86)
[2023-01-19 07:33] LABS: Bilirubin Total 0.5 mg/dL (0.2-1.0); Potassium 3.6 mEq/L (3.5-5.1); Protein, Total 6.7 g/dL (6.4-8.2)
[2023-01-19] MEDS: AMIODARONE HCL 200 MG TAB PO SCH (09:00)
[2023-01-19] MEDS: FUROSEMIDE 20 MG/ 2ML VIAL IV SCH ×2 (09:00→16:57)
[2023-01-19] MEDS: APIXABAN 5 MG TABLET PO SCH ×2 (09:30→20:57)
[2023-01-19] MEDS: SACUBITRIL/VALSARTAN 24/26 MG TAB PO SCH ×2 (09:30→20:57)
[2023-01-19] MEDS: THIAMINE 200 MG/2 ML INJ IVP SCH ×2 (09:30→20:57)
[2023-01-19] MEDS: TRAMADOL HCL 50 MG TAB PO PRN ×2 (11:00→21:04)
[2023-01-19] MEDS ORDERED: ALBUTEROL 2.5 MG/3 ML NEB SOL NEB PRN (14:00)
--- NOTE | 2023-01-19 19:47 | P.PN ---
Subjective Date of Service: 01/19/23 Chief Complaint: Pneumonia, pleural effusion No acute events overnight. This morning, her mental status is much improved. She is now alert and oriented x 3. She endorses generalized weakness. PT consulted. She denies any chest pain, palpitations, or shortness of breath. Review of Systems 10-point ROS is otherwise unremarkable General: Weakness (generalized) Physical Examination - Vital Signs Temperature: 98.3 F Blood Pressure: 98/59 Pulse: 82 Respirations: 16 Pulse Ox (%): 99 Assessment And Plan - Plan - Physical Exam General: Alert, Oriented x3 HEENT: Atraumatic, Mucous membr. moist/pink, Sclerae nonicteric Neck: JVD not distended Respiratory: Diminished, Rhonchi/gurgles (right-sided) Cardiovascular: No edema, Regular rate/rhythm, No murmurs Gastrointestinal: Normal bowel sounds, Soft, Non-distended, No tenderness Musculoskeletal: No clubbing Integumentary: No rashes Neurological: Normal speech, Normal affect # Suspected Post-Obstructive Pneumonia with history of Stage III Lung Cancer # Acute Toxic Metabolic Encephalopathy secondary to above # History of Stage III Lung Cancer s/p Chemoradiation - Evaluation thus far: - Does not meet sepsis criteria - Chest x-ray = "moderate right pleural effusion with right lung base infiltrate all which may represent pneumonia. Left lung appears grossly clear. The heart is moderately enlarged." - CT head = "no acute intracranial abnormality." - CT chest/abdomen/pelvis = "moderate right pleural effusion.Right hilar soft tissue masslike lesion with postobstructive pneumonitis." - Management plan: - Consulted Pulmonology and spoke with Dr. Hassan - recommendations appreciated - Consulted Respiratory Therapy - Supplemental oxygen to maintain SpO2 > 92% - Continue piperacillin-tazobactam - MRI brain without evidence of acute cerebrovascular accident or intracranial metastases # History of Cerebrovascular Accident # Chronic Atrial Fibrillation # Hypertension # Hyperlipidemia - Continue home amiodarone, apixaban # History of Pulmonary Embolism - Continue home apixaban # Chronic Congestive Heart Failure - suspect Systolic - No evidence of CHF exacerbation Ordered transthoracic echocardiogram - Continue home valsartan-sacubutril # Multiple Sclerosis - Reconcile home medications once verified Dallas Riley M.D.
[2023-01-19] MEDS: AMOX/K CLAV 875 MG TAB PO SCH (20:56)
[2023-01-19] MEDS: ATORVASTATIN 20 MG TAB PO SCH (20:57)
[2023-01-20 06:38] LABS: Absolute Lymphocytes (CBC) 1.8 K/uL (0.7-4.9); Hematocrit 32.3 % (36.0-45.0); Lymphocytes % 30.3 % (15.3-44.8); MCV 83.8 fL (80-100); MPV 8.8 fL (7.6-11.3); Platelets 244 thou/uL (152-406); RBC Red Blood Cell Count 3.86 M/uL (3.86-4.86)
[2023-01-20 06:59] LABS: Albumin 3.1 g/dL (3.4-5.0); Bilirubin Total 0.4 mg/dL (0.2-1.0); Potassium 3.6 mEq/L (3.5-5.1)
[2023-01-20] MEDS: SACUBITRIL/VALSARTAN 24/26 MG TAB PO SCH ×2 (08:38→20:31)
[2023-01-20] MEDS: AMOX/K CLAV 875 MG TAB PO SCH ×2 (08:38→20:31)
[2023-01-20] MEDS: THIAMINE 200 MG/2 ML INJ IVP SCH ×2 (08:38→20:31)
[2023-01-20] MEDS: FUROSEMIDE 20 MG/ 2ML VIAL IV SCH ×2 (08:39→18:26)
[2023-01-20] MEDS: AMIODARONE HCL 200 MG TAB PO SCH (08:39)
[2023-01-20] MEDS: APIXABAN 5 MG TABLET PO SCH ×2 (08:39→20:32)
--- NOTE | 2023-01-20 18:08 | P.PN ---
Subjective Date of Service: 01/20/23 Chief Complaint: Pneumonia, pleural effusion No acute events overnight. Her primary concern remains generalized weakness. She is interested in continued PT services, particularly at [facility]. Appreciate CM assistance. She denies any chest pain, palpitations, or shortness of breath. Review of Systems 10-point ROS is otherwise unremarkable General: Weakness (generalized) Physical Examination - Vital Signs Temperature: 97.9 F Blood Pressure: 129/86 Pulse: 95 Respirations: 16 Pulse Ox (%): 96 Assessment And Plan - Plan - Physical Exam General: Alert, Oriented x3 HEENT: Atraumatic, Mucous membr. moist/pink, Sclerae nonicteric Neck: JVD not distended Respiratory: Diminished, Rhonchi/gurgles (right-sided) Cardiovascular: No edema, Regular rate/rhythm, No murmurs Gastrointestinal: Soft, Non-distended, No tenderness Musculoskeletal: No clubbing Integumentary: No rashes Neurological: Normal speech, Normal affect # Suspected Post-Obstructive Pneumonia with history of Stage III Lung Cancer # Acute Toxic Metabolic Encephalopathy secondary to above # History of Stage III Lung Cancer s/p Chemoradiation - Evaluation thus far: - Does not meet sepsis criteria - Chest x-ray = "moderate right pleural effusion with right lung base infiltrate all which may represent pneumonia. Left lung appears grossly clear. The heart is moderately enlarged." - CT head = "no acute intracranial abnormality." - CT chest/abdomen/pelvis = "moderate right pleural effusion.Right hilar soft tissue masslike lesion with postobstructive pneumonitis." - Management plan: - Consulted Pulmonology and spoke with Dr. Hassan - recommendations appreciated - Consulted Respiratory Therapy - Supplemental oxygen to maintain SpO2 > 92% - Switch piperacillin-tazobactam to amoxcillin-clavulanate - MRI brain = "no acute intracranial process within limits of motion artifact. No evidence of ventriculomegaly, edema, or mass effect." # History of Cerebrovascular Accident # Chronic Atrial Fibrillation # Hypertension # Hyperlipidemia - Continue home amiodarone, apixaban # History of Pulmonary Embolism - Continue home apixaban # Chronic Congestive Heart Failure - suspect Systolic - No evidence of CHF exacerbation Ordered transthoracic echocardiogram - Continue home valsartan-sacubutril # Multiple Sclerosis - Reconcile home medications once verified Dallas Riley M.D.
[2023-01-20] MEDS: TRAMADOL HCL 50 MG TAB PO PRN (18:26)
[2023-01-20] MEDS: ATORVASTATIN 20 MG TAB PO SCH (20:31)
[2023-01-20] MEDS: BACLOFEN 10 MG TAB PO SCH (20:32)
[2023-01-20] MEDS: MELATONIN 5 MG TABLET PO PRN (21:32)
[2023-01-21] MEDS: HYDROCODONE/APAP 10/325 TAB PO PRN ×4 (01:20→23:17)
[2023-01-21 04:57] LABS: Bilirubin Total 0.5 mg/dL (0.2-1.0); Potassium 3.3 mEq/L (3.5-5.1); Protein, Total 6.7 g/dL (6.4-8.2)
[2023-01-21] MEDS: TRAMADOL HCL 50 MG TAB PO PRN ×2 (07:08→21:50)
[2023-01-21] MEDS: BACLOFEN 10 MG TAB PO SCH ×3 (09:49→21:50)
[2023-01-21] MEDS: FUROSEMIDE 20 MG/ 2ML VIAL IV SCH ×2 (09:49→16:47)
[2023-01-21] MEDS: AMOX/K CLAV 875 MG TAB PO SCH ×2 (09:49→21:49)
[2023-01-21] MEDS: AMIODARONE HCL 200 MG TAB PO SCH (09:49)
[2023-01-21] MEDS: APIXABAN 5 MG TABLET PO SCH ×2 (09:49→21:50)
[2023-01-21] MEDS: THIAMINE 200 MG/2 ML INJ IVP SCH ×2 (09:49→21:49)
[2023-01-21] MEDS: SACUBITRIL/VALSARTAN 24/26 MG TAB PO SCH ×2 (09:49→21:49)
--- NOTE | 2023-01-21 13:46 | ECHO ---
HEIGHT: 5 ft 7 in WEIGHT: 126 lb 0 oz DATE OF STUDY: 01/21/[address]: Dallas Riley MD 2-DIMENSIONAL: YES M.MODE: YES DOPPLER: YES COLOR FLOW: YES TDS: PORTABLE: YES DEFINITY: [*] BUBBLE STUDY: DIAGNOSIS: CONGESTIVE HEART FAILURE CARDIAC HISTORY: CATHERIZATION: SURGERY: PROSTHETIC VALVE: PACEMAKER: MEASUREMENTS (cm) DIASTOLIC (NORMALS) SYSTOLIC (NORMALS) IVSd 0.8 (0.6-1.2) LA Diam 3.0 (1.9-4.0) LVEF 10-15% LVIDd 5.3 (3.5-5.7) LVIDs 5.1 (2.0-3.5) %FS 3% LVPWd 0.9 (0.6-1.2) Ao Diam 2.5 (2.0-3.7) 2 DIMENSIONAL ASSESSMENT: RIGHT ATRIUM: NORMAL LEFT ATRIUM: NORMAL RIGHT VENTRICLE: NORMAL LEFT VENTRICLE: DILATED LEFT VENTRICLE TRICUSPID VALVE: MILD TRICUSPID REGURGITATION MITRAL VALVE: MILD MITRAL REGURGITATION PULMONIC VALVE: MILD PULMONIC INSUFFICIENCY AORTIC VALVE: MILD AORTIC INSUFFICIENCY PERICARDIAL EFFUSION: SMALL EFFUSION AORTIC ROOT: NORMAL LEFT VENTRICULAR WALL MOTION: SEVERE GLOBAL HYPOKINESIS DOPPLER/COLOR FLOW: SEE BELOW COMMENTS: 1. SEVERELY DEPRESSED LEFT VENTRICULAR EJECTION FRACTION 10-15% 2. SEVERE GLOBAL HYPOKINESIS 3. MILD TRICUSPID REGURGITATION, MITRAL REGURGITATION, AORTIC INSUFFICIENCY, PULMONIC INSUFFICIENCY 4. SMALL PERICARDIAL EFFUSION (APICAL) 5. SEVERE PULMONARY HYPERTENSION WITH RIGHT VENTRICULAR SYSTOLIC PRESURE GREATER THAN 60 mmHg. TECHNOLOGIST: LUL CASEY
--- NOTE | 2023-01-21 16:03 | P.PN ---
Subjective Date of Service: 01/21/23 Chief Complaint: Pneumonia, pleural effusion No new changes. She reports that her pain is well-controlled. Pending insurance authorization for inpatient rehab. Appreciate CM assistance. She denies any chest pain, palpitations, or shortness of breath. Review of Systems 10-point ROS is otherwise unremarkable General: Weakness (generalized) Physical Examination - Vital Signs Temperature: 97.2 F Blood Pressure: 124/86 Pulse: 98 Respirations: 16 Pulse Ox (%): 95 Assessment And Plan - Plan - Physical Exam General: Alert, Oriented x3 HEENT: Atraumatic, Mucous membr. moist/pink, Sclerae nonicteric Neck: JVD not distended Respiratory: Diminished, Rhonchi/gurgles (right-sided) Cardiovascular: No edema, Regular rate/rhythm, No murmurs Gastrointestinal: Soft, Non-distended, No tenderness Musculoskeletal: No clubbing Integumentary: No rashes Neurological: Normal speech, Normal affect # Suspected Post-Obstructive Pneumonia with history of Stage III Lung Cancer # Acute Toxic Metabolic Encephalopathy secondary to above # History of Stage III Lung Cancer s/p Chemoradiation - Evaluation thus far: - Does not meet sepsis criteria - Chest x-ray = "moderate right pleural effusion with right lung base infiltrate all which may represent pneumonia. Left lung appears grossly clear. The heart is moderately enlarged." - CT head = "no acute intracranial abnormality." - CT chest/abdomen/pelvis = "moderate right pleural effusion.Right hilar soft tissue masslike lesion with postobstructive pneumonitis." - Management plan: - Consulted Pulmonology and spoke with Dr. Hassan - recommendations appreciated - Consulted Respiratory Therapy - Supplemental oxygen to maintain SpO2 > 92% - Continue amoxcillin-clavulanate - MRI brain = "no acute intracranial process within limits of motion artifact. No evidence of ventriculomegaly, edema, or mass effect." # History of Cerebrovascular Accident # Chronic Atrial Fibrillation # Hypertension # Hyperlipidemia - Continue home amiodarone, apixaban # History of Pulmonary Embolism - Continue home apixaban # Chronic Congestive Heart Failure - suspect Systolic - No evidence of CHF exacerbation Ordered transthoracic echocardiogram - Continue home valsartan-sacubutril # Multiple Sclerosis - Reconcile home medications once verified # Deconditioning - PT consulted - Pending insurance authorization for [facility] Dallas Riley M.D.
[2023-01-21] MEDS: MELATONIN 5 MG TABLET PO PRN (21:49)
[2023-01-21] MEDS: ATORVASTATIN 20 MG TAB PO SCH (21:50)
[2023-01-22 04:38] LABS: Bilirubin Total 0.5 mg/dL (0.2-1.0)
[2023-01-22 04:42] LABS: Potassium 3.7 mEq/L (3.5-5.1)
[2023-01-22] MEDS: HYDROCODONE/APAP 10/325 TAB PO PRN ×3 (07:31→21:34)
[2023-01-22] MEDS: AMOX/K CLAV 875 MG TAB PO SCH ×2 (09:02→21:22)
[2023-01-22] MEDS: AMIODARONE HCL 200 MG TAB PO SCH (09:02)
[2023-01-22] MEDS: TRAMADOL HCL 50 MG TAB PO PRN ×2 (09:02→18:21)
[2023-01-22] MEDS: BACLOFEN 10 MG TAB PO SCH ×3 (09:02→21:26)
[2023-01-22] MEDS: SACUBITRIL/VALSARTAN 24/26 MG TAB PO SCH ×2 (09:02→21:26)
[2023-01-22] MEDS: APIXABAN 5 MG TABLET PO SCH ×2 (09:02→21:26)
[2023-01-22] MEDS: THIAMINE 200 MG/2 ML INJ IVP SCH ×2 (09:03→21:27)
[2023-01-22] MEDS: FUROSEMIDE 20 MG/ 2ML VIAL IV SCH ×2 (09:03→18:13)
--- NOTE | 2023-01-22 12:46 | P.PN ---
Subjective Date of Service: 01/22/23 Chief Complaint: Pneumonia, pleural effusion No new changes today. Pending insurance authorization for inpatient rehab - unlikely to occur over the weekend. Appreciate CM assistance. She denies any chest pain, palpitations, or shortness of breath. Review of Systems 10-point ROS is otherwise unremarkable General: Weakness (generalized) Physical Examination - Vital Signs Temperature: 97.9 F Blood Pressure: 132/72 Pulse: 96 Respirations: 17 Pulse Ox (%): 97 Assessment And Plan - Plan - Physical Exam General: Alert, Oriented x3 HEENT: Atraumatic, Mucous membr. moist/pink, Sclerae nonicteric Respiratory: Diminished, Rhonchi/gurgles (right-sided) Cardiovascular: No edema, Regular rate/rhythm, No murmurs Gastrointestinal: Soft, Non-distended, No tenderness Integumentary: No rashes Neurological: Normal speech, Normal affect # Suspected Post-Obstructive Pneumonia with history of Stage III Lung Cancer # Acute Toxic Metabolic Encephalopathy secondary to above # History of Stage III Lung Cancer s/p Chemoradiation - Evaluation thus far: - Does not meet sepsis criteria - Chest x-ray = "moderate right pleural effusion with right lung base infiltrate all which may represent pneumonia. Left lung appears grossly clear. The heart is moderately enlarged." - CT head = "no acute intracranial abnormality." - CT chest/abdomen/pelvis = "moderate right pleural effusion.Right hilar soft tissue masslike lesion with postobstructive pneumonitis." - Management plan: - Consulted Pulmonology and spoke with Dr. Hassan - recommendations appreciated - Consulted Respiratory Therapy - Supplemental oxygen to maintain SpO2 > 92% - Continue amoxcillin-clavulanate - MRI brain = "no acute intracranial process within limits of motion artifact. No evidence of ventriculomegaly, edema, or mass effect." # History of Cerebrovascular Accident # Chronic Atrial Fibrillation # Hypertension # Hyperlipidemia - Continue home amiodarone, apixaban # History of Pulmonary Embolism - Continue home apixaban # Chronic Compensated Systolic Congestive Heart Failure with Reduced Ejection Fraction # Severe Pulmonary Hypertension - No evidence of CHF exacerbation Transthoracic echocardiogram = "1. severely depressed left ventricular ejection fraction 10-15% 2. severe global hypokinesis 3. mild tricuspid regurgitation, mitral regurgitation, aortic insufficiency, pulmonic insufficiency 4. small pericardial effusion (apical) 5. severe pulmonary hypertension with right ventricular systolic presure greater than 60 mmHg." - Continue furosemide, valsartan-sacubutril - Started low-dose metoprolol # Multiple Sclerosis - Reconcile home medications once verified # Deconditioning - PT consulted - [facility] Dallas Riley M.D.
[2023-01-22] MEDS: MELATONIN 5 MG TABLET PO PRN (21:21)
[2023-01-22] MEDS: ATORVASTATIN 20 MG TAB PO SCH (21:26)
[2023-01-23] MEDS: HYDROCODONE/APAP 10/325 TAB PO PRN ×3 (04:16→20:52)
[2023-01-23] MEDS: AMOX/K CLAV 875 MG TAB PO SCH ×2 (09:20→20:52)
[2023-01-23] MEDS: SACUBITRIL/VALSARTAN 24/26 MG TAB PO SCH ×2 (09:20→20:51)
[2023-01-23] MEDS: APIXABAN 5 MG TABLET PO SCH ×2 (09:21→20:52)
[2023-01-23] MEDS: TRAMADOL HCL 50 MG TAB PO PRN (09:21)
[2023-01-23] MEDS: FUROSEMIDE 20 MG/ 2ML VIAL IV SCH ×2 (09:21→18:04)
[2023-01-23] MEDS: BACLOFEN 10 MG TAB PO SCH ×3 (09:21→20:53)
[2023-01-23] MEDS: THIAMINE 200 MG/2 ML INJ IVP SCH ×2 (09:21→20:51)
[2023-01-23] MEDS: AMIODARONE HCL 200 MG TAB PO SCH (09:21)
--- NOTE | 2023-01-23 09:34 | P.PN ---
Subjective Date of Service: 01/23/23 Chief Complaint: Pneumonia, pleural effusion No new symptoms. She reports that her pain is well-controlled. Pending insurance authorization for inpatient rehab - unlikely to occur over the weekend. Appreciate CM assistance. Review of Systems 10-point ROS is otherwise unremarkable General: Weakness (generalized) Physical Examination - Vital Signs Temperature: 96.8 F Blood Pressure: 110/81 Pulse: 104 Respirations: 18 Pulse Ox (%): 95 - Studies Microbiology Data (last 24 hrs): 01/17/23 21:30 Blood - Blood Aerobic Blood Culture - Final No growth in 5 days. 01/17/23 21:30 Blood - Blood Anaerobic Blood Culture - Final No growth in 5 days. 01/17/23 21:37 Blood - Blood Aerobic Blood Culture - Final No growth in 5 days. 01/17/23 21:37 Blood - Blood Anaerobic Blood Culture - Final No growth in 5 days. Assessment And Plan - Plan - Physical Exam General: Alert, Oriented x3 HEENT: Atraumatic, Mucous membr. moist/pink, Sclerae nonicteric Respiratory: Diminished, Rhonchi/gurgles (faint right-sided) Cardiovascular: No edema, Regular rate/rhythm, No murmurs Gastrointestinal: Soft, Non-distended, No tenderness Integumentary: No rashes Neurological: Normal speech, Normal affect # Suspected Post-Obstructive Pneumonia with history of Stage III Lung Cancer # Acute Toxic Metabolic Encephalopathy secondary to above # History of Stage III Lung Cancer s/p Chemoradiation - Evaluation thus far: - Does not meet sepsis criteria - Chest x-ray = "moderate right pleural effusion with right lung base infiltrate all which may represent pneumonia. Left lung appears grossly clear. The heart is moderately enlarged." - CT head = "no acute intracranial abnormality." - CT chest/abdomen/pelvis = "moderate right pleural effusion.Right hilar soft tissue masslike lesion with postobstructive pneumonitis." - Management plan: - Consulted Pulmonology and spoke with Dr. Hassan - recommendations appreciated - Consulted Respiratory Therapy - Supplemental oxygen to maintain SpO2 > 92% - Continue amoxcillin-clavulanate - MRI brain = "no acute intracranial process within limits of motion artifact. No evidence of ventriculomegaly, edema, or mass effect." # History of Cerebrovascular Accident # Chronic Atrial Fibrillation # Hypertension # Hyperlipidemia - Continue home amiodarone, apixaban # History of Pulmonary Embolism - Continue home apixaban # Chronic Compensated Systolic Congestive Heart Failure with Reduced Ejection Fraction # Severe Pulmonary Hypertension - No evidence of CHF exacerbation - Cardiology consulted - recommendations appreciated Transthoracic echocardiogram = "1. severely depressed left ventricular ejection fraction 10-15% 2. severe global hypokinesis 3. mild tricuspid regurgitation, mitral regurgitation, aortic insufficiency, pulmonic insuf ficiency 4. small pericardial effusion (apical) 5. severe pulmonary hypertension with right ventricular systolic presure greater than 60 mmHg." - Continue furosemide, valsartan-sacubutril - Started low-dose metoprolol # Multiple Sclerosis - Reconcile home medications once verified # Deconditioning - PT consulted - [facility] Dallas Riley M.D.
--- NOTE | 2023-01-23 19:02 | P.PN ---
Date of Service: 01/24/23 Subjective: No new changes. Waiting for placement. ROS: 10 point ROS as noted above, otherwise negative Physical Exam: Gen: Alert, Oriented, NAD HEENT: normal conjunctiva, sclera anicteric CV: regular rate & rhythm, no edema Pulm: nonlabored respirations on room air, Diminished, Rhonchi/gurgles (faint right-sided) Abd: soft, nontender, nondistended MSK: no joint tenderness Integumentary: No rashes Neuro: normal speech, normal affect Problem List: 1. Suspected Post-Obstructive Pneumonia with history of Stage III Lung Cancer 2. Acute Toxic Metabolic Encephalopathy secondary to above 3. History of Stage III Lung Cancer s/p Chemoradiation 4. History of CVA 5. Chronic Atrial Fibrillation 6. Hypertension 7. Hyperlipidemia 8. History of PE 9. Chronic Systolic CHF 10. Severe Pulmonary Hypertension 11. Multiple Sclerosis 12. Deconditioning PLAN Noted change with plan of care. Continue with treatment plan as started.
--- NOTE | 2023-01-23 20:36 | CON ---
Date of Consultation: 01/23/2023 Reason For Consultation: Congestive heart failure. History Of Present Illness: This is a 77-year-old female with history of lung cancer, on treatment; history of PE, on anticoagulation; history of MS; dyslipidemia; presented with altered mental status, shortness of breath, and orthopnea. Denies having any chest pain. Denies having any nausea, vomiti ng, and diaphoresis. At the present time, she is chest pain free and even her shortness of breath is better. Past Medical History: As outlined above in HPI. Medications: Refer reconciliation sheet for detailed list. Allergies: NO KNOWN DRUG ALLERGIES. Family History: No premature coronary artery disease. Social History: She does not smoke or drink. Does not use any drugs. Review of Systems: All systems reviewed were negative except as mentioned in the HPI. Physical Examination: Vital Signs: Reviewed. head and Neck: Pupils are equal, reactive to light. Intact eye movements. No JVD. No cervical lym phadenopathy. Neck is supple. Thyroid is not enlarged. Lungs: Clear to auscultation bilaterally. No rhonchi, wheezing, or crackles. No accessory muscle u se. Heart: Regular rate and rhythm with S3 gallop. Abdomen: Soft, nontender. Bowel sounds positive. No organomegaly. No masses or hernia. No rigidi ty or rebound. Extremities: No edema, clubbing, or cyanosis. Intact pulses. Skin: No rashes. Neurologic: Alert, awake, oriented x3. No acute focal deficits appreciated. Investigations: BUN 12, creatinine 0.81. Hemoglobin is 10.2. Assessment And Recommendations: 1.Shortness of breath. This could be in part due to congestive heart failure. I am not sure of her cardiac function. Obtained an echo on the and showed a severely depressed EF 10% to 15% with s ignificant elevation of the right ventricular systolic pressure. She appears to be in an acceptable volemic status now. Continue the Lasix. Monitor BUN and creatinine and electrolytes. 2.Atrial fibrillation, chronic. This is controlled on amiodarone and apixaban. Overall, the patien t follows up with air conditioner installer helper at [facility]. I am not sure if this is a new diagnosis or an old di agnosis. We will try to obtain records, but at this moment, I recommend diuretics and distal restric tion and careful monitoring of her electrolytes, BUN, creatinine. If she did not have any ischemia e valuation recently, then I will recommend to do that and also I will need to consider her lung cancer status prior to invasive cardiac workup. I will follow the patient with you while in the hospital. Thank you for the consult. /GABRIELLA Voice ID: [id number] Report ID: [id number]
[2023-01-23] MEDS: MELATONIN 5 MG TABLET PO PRN (20:53)
[2023-01-23] MEDS: ATORVASTATIN 20 MG TAB PO SCH (20:53)
[2023-01-24] MEDS: APIXABAN 5 MG TABLET PO SCH ×2 (08:18→21:12)
[2023-01-24] MEDS: AMOX/K CLAV 875 MG TAB PO SCH ×2 (08:19→21:11)
[2023-01-24] MEDS: SACUBITRIL/VALSARTAN 24/26 MG TAB PO SCH ×2 (08:19→21:12)
[2023-01-24] MEDS: AMIODARONE HCL 200 MG TAB PO SCH (08:19)
[2023-01-24] MEDS: THIAMINE 200 MG/2 ML INJ IVP SCH ×2 (08:20→21:11)
[2023-01-24] MEDS: FUROSEMIDE 20 MG/ 2ML VIAL IV SCH ×2 (08:20→16:50)
[2023-01-24] MEDS: BACLOFEN 10 MG TAB PO SCH ×3 (08:21→21:11)
[2023-01-24] MEDS: HYDROCODONE/APAP 10/325 TAB PO PRN ×2 (08:43→19:35)
[2023-01-24] MEDS: TRAMADOL HCL 50 MG TAB PO PRN (10:14)
[2023-01-24] MEDS: ATORVASTATIN 20 MG TAB PO SCH (21:11)
[2023-01-24] MEDS: MELATONIN 5 MG TABLET PO PRN (21:11)
[2023-01-24] MEDS: ENSURE ENLIVE 237 ML CAN PO SCH (21:12)
--- NOTE | 2023-01-24 22:44 | PN ---
Date of Progress Note: 01/24/2023 Subjective: Seen at bedside. She appears to be doing well. No chest pain or shortness of breath. Review of Systems: No nausea, vomiting, or diarrhea. No abdominal pain. No dysuria, polyuria, or urinary urgency. All other systems reviewed and they were negative. Physical Examination: Vital Signs: Reviewed. Head and Neck: Pupils are equal, reactive to light. Intact eye movements. No JVD. No cervical lym phadenopathy. Neck: Supple. Thyroid is not enlarged. Lungs: Clear to auscultation bilaterally. No rhonchi, wheezing, or crackles. No accessory muscle u se. Heart: Regular. No extra sounds. Abdomen: Soft, nontender. Bowel sounds positive. No organomegaly. No masses or hernia. No rigidi ty or rebound. Extremities: No clubbing, cyanosis. No edema. Neurologic: Alert, awake, oriented x3. No acute focal deficits appreciated. Investigations: BUN 12, creatinine 0.81, and hemoglobin is 10.2. Assessment/recommendation: 1.Severe systolic heart failure. Ejection fraction is very low at 15% to 20%, and her blood pressur e is on the low side. She used to be on Entresto. Apparently, this is evaluated already at [facility] and this is nonischemic in nature. She has a intelligence officer and given the fact that she is asympto matic now, I recommended that she follows up with her primary intelligence officer post discharge. She does not seem to be fluid overloaded at the present time. 2.Chronic atrial fibrillation. Heart rate is controlled with amiodarone and she is on apixaban for stroke prevention. 3.Dyslipidemia. Continue statin. Cardiology will sign off on this case. SR/MODL Voice ID: [id number] Report ID: [id number]
[2023-01-25] MEDS: HYDROCODONE/APAP 10/325 TAB PO PRN ×3 (04:34→23:25)
[2023-01-25] MEDS: BACLOFEN 10 MG TAB PO SCH ×3 (08:17→20:37)
[2023-01-25] MEDS: TRAMADOL HCL 50 MG TAB PO PRN ×2 (08:18→17:10)
[2023-01-25] MEDS: THIAMINE 200 MG/2 ML INJ IVP SCH ×2 (08:18→20:37)
[2023-01-25] MEDS: APIXABAN 5 MG TABLET PO SCH ×2 (08:19→20:37)
[2023-01-25] MEDS: AMIODARONE HCL 200 MG TAB PO SCH (08:24)
[2023-01-25] MEDS: FUROSEMIDE 20 MG/ 2ML VIAL IV SCH ×2 (08:25→16:55)
[2023-01-25] MEDS: SACUBITRIL/VALSARTAN 24/26 MG TAB PO SCH ×2 (08:25→20:37)
[2023-01-25] MEDS: ENSURE ENLIVE 237 ML CAN PO SCH ×2 (08:25→20:38)
[2023-01-25] MEDS: AMOX/K CLAV 875 MG TAB PO SCH ×2 (08:26→20:37)
[2023-01-25] MEDS: ATORVASTATIN 20 MG TAB PO SCH (20:37)
[2023-01-25] MEDS ORDERED: POLYETHYL GLY 3350 17 GM/DOSE PO PRN (22:03)
[2023-01-26] MEDS: AMIODARONE HCL 200 MG TAB PO SCH (08:25)
[2023-01-26] MEDS: HYDROCODONE/APAP 10/325 TAB PO PRN ×2 (08:25→14:50)
[2023-01-26] MEDS: APIXABAN 5 MG TABLET PO SCH (08:26)
[2023-01-26] MEDS: FUROSEMIDE 20 MG/ 2ML VIAL IV SCH (08:26)
[2023-01-26] MEDS: AMOX/K CLAV 875 MG TAB PO SCH (08:26)
[2023-01-26] MEDS: THIAMINE 200 MG/2 ML INJ IVP SCH (08:26)
[2023-01-26] MEDS: SACUBITRIL/VALSARTAN 24/26 MG TAB PO SCH (08:26)
[2023-01-26] MEDS: BACLOFEN 10 MG TAB PO SCH ×2 (08:26→14:50)
[2023-01-26] MEDS: ENSURE ENLIVE 237 ML CAN PO SCH (09:00)
[2023-01-26 10:37] VITALS: O2SAT 97
[2023-01-26] MEDS: TRAMADOL HCL 50 MG TAB PO PRN (11:51)
[2023-01-26 16:26] VITALS: BP 90/65; TEMP 97.9
== END 2023-01-26 17:15 | DRG 193 ==
LOC: ER 17:40 → ERHOLD 21:44 → 4TH 22:37
PROVIDERS: ADMIT Internal Medicine; ATTEND Hospitalist
DX: J18.9 Pneumonia, unspecified organism (principal); G92.8 Other toxic encephalopathy; C34.31 Malignant neoplasm of lower lobe, right bronchus or lung; I48.20 Chronic atrial fibrillation, unspecified; I50.22 Chronic systolic (congestive) heart failure; N18.9 Chronic kidney disease, unspecified; D63.1 Anemia in chronic kidney disease; I08.3 Combined rheumatic disorders of mitral, aortic and tricuspid valves; I27.20 Pulmonary hypertension, unspecified; G35 Multiple sclerosis; E78.00 Pure hypercholesterolemia, unspecified; Z60.2 Problems related to living alone; Z85.3 Personal history of malignant neoplasm of breast; Z79.01 Long term (current) use of anticoagulants; Z92.21 Personal history of antineoplastic chemotherapy; Z86.73 Personal history of transient ischemic attack (TIA), and cerebral infarction without residual deficits; Z79.899 Other long term (current) drug therapy; Z85.118 Personal history of other malignant neoplasm of bronchus and lung; Z86.711 Personal history of pulmonary embolism; Z85.528 Personal history of other malignant neoplasm of kidney; Z87.891 Personal history of nicotine dependence
CPT/HCPCS: 36415; 70450; 70551; 71045; 71250; 74176; 76705; 80048; 80053; 80076; 82947; 83605; 83735; 84484; 85025; 85610; 85730; 87040; 93005; 93306; 96374; 96375; 97110; 97116; 97161; 97530; 99285; J1940; J2185; J2543; J3411; J7040; J7613

== ENCOUNTER 2023-02-15 19:13 | Inpatient (IN) | payer OTHER ==
--- OUTSIDE RECORDS SUMMARY | 2023-02-15 19:40 | XMS REPORT | Continuity of Care Document ---
:1945 Author Organization [facility] t Address [address] [facility] [address] [place] [address] Care Team Providers Name Role Phone MARIA LUISA FERGUSON Primary Care Physician Unavailable MARCEL DAMIAN KEVIN Attending Clinician Unavailable [id number] Attending Clinician Unavailable SYSTEM, PROVIDER NOT IN Attending Clinician Unavailable TWYLA SMITH Attending Clinician Unavailable CLARKE RENDON Attending Clinician Unavailable EDDIE GREGORIO Attending Clinician Unavailable HILL TAY Attending Clinician Unavailable JUNE VILLALBA Attending Clinician Unavailable JEFF EWING RALPH Attending Clinician Unavailable LARS BANSAL Attending Clinician Unavailable LARS BANSAL Attending Clinician Unavailable KATTY OLIVEIRA Attending Clinician Unavailable LYNN WARD Attending Clinician Unavailable Deejay AUGUSTIN, June Hastings Attending Clinician BERKLEY ARECHIGA Attending Clinician Unavailable LETTY GARNER Attending Clinician Unavailable ABDIAS MAHONYE Attending Clinician Unavailable MAZIN IQBAL Attending Clinician Unavailable BARRERA GARCIAS Attending Clinician Unavailable NANDO SCHROEDER Attending Clinician Unavailable LUZMARIA CHURCH Attending Clinician Unavailable LEEANNE VENEGAS Attending Clinician Unavailable Lorena Timmons APRN Attending Clinician Van RN, Silvia Attending Clinician Unavailable Shaikh DEMETRIA, Jj Attending Clinician Matt Jorge MD Attending Clinician Sindi AUGUSTIN, Benitez Corona Attending Clinician [phone] Shailesh Camacho MD Attending Clinician Esmer AUGUSTIN, Thomas Martinez Attending Clinician [phone] Roro Lambert RN Attending Clinician Unavailable Bobby AUGUSTIN, Marcel Ayers Attending Clinician Guerita AUGUSTIN, Sari Attending Clinician Dominick AUGUSTIN, Negin Sargent Attending Clinician Selam Putnam DO Attending Clinician Arturo Ladd Attending Clinician Stu AUGUSTIN, Maria Luisa Pyle Attending Clinician [facility]quelyn [facility] Attending Clinician Unavailable Mimi AUGUSTIN, Fab Attending Clinician Severo AUGUSTIN, Marlen Attending Clinician [phone] Gabo Guzman MD, Khadra Attending Clinician [phone] Mirta Lomas MD Attending Clinician Jovi AUGUSTIN, Niko Hernandez Attending Clinician MARYCHUY_Brian_Sayda Attending Clinician Unavailable SELAM ROPER Attending Clinician Unavailable JAKE SOLOMON Attending Clinician Unavailable HOLLY RHODES Attending Clinician Unavailable Rehan Frey MD Attending Clinician Maribeth Lopez MA Attending Clinician Unavailable MELODY LR Attending Clinician Unavailable Elias Castro MD Attending Clinician Sid Villanueva MD Attending Clinician MARAL MASON Attending Clinician Unavailable Maral Mason MD Attending Clinician Ariana Hankins Attending Clinician Unavailable ANKUR MCDANIEL Attending Clinician Unavailable MAHSA CHEEK Attending Clinician Unavailable MIKAELA POZO Attending Clinician Unavailable RAMAKRISHNA VELIZ Attending Clinician Unavailable SPRING ALVARADO Attending Clinician Unavailable Bar AUGUSTIN, Fernanda Mendez Attending Clinician [phone] FERNANDA CAMP Attending Clinician Unavailable Harika Torres MD Attending Clinician Mateo Riley MD Attending Clinician Mayte Kumar MD Attending Clinician MAYTE KUMAR Attending Clinician Unavailable Hill Tay MD Attending Clinician Virtual, Surgeon Attending Clinician Unavailable Halle Roberts CRNA Attending Clinician Neymar Diaz RN Attending Clinician Unavailable NITO [...] Unavailable SELAM KUHN M.D. Attending Clinician Unavailable BRALY, BERNARD, M.D. Attending Clinician Unavailable MATEO CENTENO Attending Clinician Unavailable DAVID CLARK D.O. Attending Clinician Unavailable BRONSON MUNIZ M.D. Attending Clinician Unavailable ALONZO TURNER Attending Clinician Unavailable MARCEL DAMIAN KEVIN Admitting Clinician Unavailable [id number] Admitting Clinician Unavailable CLARKE RENDON Admitting Clinician Unavailable HILL TAY Admitting Clinician Unavailable JUNE VILLALBA Admitting Clinician Unavailable JEFF EWING RALPH Admitting Clinician Unavailable MARCEL DAMIAN Admitting Clinician Unavailable LARS BANSAL Admitting Clinician Unavailable ALISON VARGAS Admitting Clinician [...] Number Effective Date Expiration Date S ource [facility] [id number] [facility] MEDICARE [id number] 2020 ADVANTAGE 00:00:00 HUMANA CHOICE [id number] 2017 2020 MEDICARE PPO 00:00:00 00:00:00 MEDICARE PART B [id number] 2009 2017 00:00:00 00:00:00 AETNA O [id number] 2010 2017 00:00:00 00:00:00 UNITED MEDICARE [id number] 2020 HMO 00:00:00 [id number] 1959 00:00:00 [facility] [id number] (MEDICARE REPLACEMENT/ADVANT AGE - PPO) [id number] 2017 00:00:00 MEDICARE PART B [id number] 2009 2010 00:00:00 00:00:00 AETNA HMO POS QPOS [id number] 2001 2017 00:00:00 00:00:00 Problems Condition Condition Condition Status Onset Resolution Last Treating Co mments Source Name Details Category Date Date Treatment Clinician Date Encephalop Encephalop Disease Active M ethodi athy acute athy acute 4-03 st 00:00: Hospita 00 l T84.092A T84.092A Diagnosis Active 2022-09-06 Memoria Active 09-02 13:19:00 l 09/02/2022 00:00: Manny CHATMAN [place] Localized Localized Disease Active [...] Congestive Disease Active M ethodi heart heart 9-27 st failure failure 00:00: Hospita (CHF) (CHF) 00 l Lung Lung Disease Active Methodi cancer cancer 03-02 st 00:00: Hospita 00 l Pulmonary Pulmonary Disease Active Met hodi embolism embolism 02-25 st on right on right 00:00: Hospit a 00 l RIGHT HIP RIGHT HIP Diagnosis Active 2021-12-21 Memoria PAIN PAIN 7-18 17:13:00 l Active 00:00: Samuel 12/21/[address] 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 PT PT Active Diagnosis Active 2021-01-22 Memoria 08/04/202008-04 16:03:00 l [facility] 08:00: Samuel Rosales 00 Trace . 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-12 st s with s with 00:00: Hospita myelopathy myelopathy 00 l LUMBAR LUMBAR Diagnosis Active 2020-06-12 Id moria Active 06-06 10:22:00 l 06/06/2019 08:00: Manny ng SMR 00 Bobby Trace Vitamin D Vitamin D Disease Active 2017-06 Met hodi deficiency deficiency 06-14 00:00: Hospita 00 l Magnesium Magnesium Disease Active 2017-06 Met hodi deficiency deficiency 06-14 st 00:00: Hospita 00 l B12 B12 Disease Active 2017-06 Methodi deficiency deficiency 06-14 st 00:00: Hospita 00 l BILATERAL Diagnosis Active 2017-062021-05-06 Memoria LEG PAIN BILATERAL 06-06 14:47:00 l LEG PAIN 08:00: Samuel Active 00 04/06/2018 [facility] Acute Acute Disease Active 2017-06 Methodi bursitis bursitis 0-09 st of left of left 00:00: Hospita shoulder shoulder 00 l Prolonged Prolonged Disease Active 2017-06 Met hodi Q-T Q-T 0-08 st interval interval 00:00: Hospit a on ECG on ECG 00 l 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 9-11 st left left 00:00: Hospita shoulder shoulder 00 l due to due to rotator rotator cuff cuff injury injury Therapeuti Therapeuti Disease Active M ethodi c c 9-11 st opioid-ind opioid-ind 00:00: Ho spita uced uced 00 l constipati constipati on (OIC) on (OIC) CERVICAL CERVICAL Diagnosis Active 2018-02-20 Memoria FACET FACET 9-05 12:16:00 l SYNDROME SYNDROME 00:00: Manny ng Active 00 02/08/2018 [facility] Neuropathi Neuropathi Disease Active M ethodi c pain c pain 7-16 st 00:00: Hospita 00 l 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 00:00: Ho spita 00 l S/P total S/P total Disease Recurre Me thodi knee knee nce 6-12 st replacemen replacemen 00:00: Ho spita t, right t, right 00 l 08/25/17 08/25/17 600 UNITS 600 Diagnosis Active 2017-12-26 Memoria UNITS 5-02 15:13:00 l Active 00:00: Samuel 10/05/2017 00 [facility] BOTOX INJ BOTOX INJ Diagnosis Active 2016-062017-10-05 Memoria Active 2-06 09:16:00 l 05/11/2017 00:00: Manny CHATMAN [facility] 00 Trifacial Trifacial Disease Active 2016-[address] neuralgia neuralgia 0-31 [facility] 40MG 40MG Diagnosis Active 2016-062017-03-10 Mem oria Active 0-03 16:07:00 l 03/08/2017 00:00: Manny CHATMAN [facility] 00 500 UNITS 500 UNITS Diagnosis Active 2017-05-11 Memoria Active 02-09 10:14:00 l 02/09/2017 00:00: Manny ng [facility] 00 2 MONTH 2 MONTH Diagnosis Active 2017-05-21 Memoria F/U F/U 02-09 16:11:00 l Active 00:00: Samuel 02/09/2017 00 MH [facility] 3 WEEK F/U 3 WEEK Diagnosis Active 2017-01-26 Memoria F/U Active 01-05 16:29:00 l 01/05/2017 00:00: Manny ng [facility] 00 PAIN / PER PAIN / Diagnosis Active 2017-01-05 Memoria EMAIL FROM PER EMAIL 12-30 11:40:00 l DAVID FROM DAVID 00:00: Manny ng Active 00 12/30/2016 MH [facility] 4 WEEK F/U 4 WEEK Diagnosis Active 2017-02-14 Memoria F/U 12-30 16:19:00 l Active 00:00: Samuel 12/30/2016 00 MH [facility] 6 WEEKS FU 6 WEEKS Diagnosis Active 2016-12-15 Memoria FU Active 11-19 16:11:00 l 11/19/2016 00:00: Manny ng [facility] 00 400 UNITS 400 Diagnosis Active 2017-02-09 Memoria UNITS 5-25 10:29:00 l Active 00:00: [place] 10/28/2016 00 MH [facility] 2 WEEK F.U 2 WEEK Diagnosis Active 2016-11-10 Memoria F.U Active 10-23 09:17:00 l 10/23/2016 00:00: Manny CHATMAN [facility] 00 10ML 10ML Diagnosis Active 2016-10-20 [...] NEW PT NEW PT Diagnosis Active 2015-10-05 M micki DURANAL 08-26 16:36:00 l Active 00:00: Samuel 08/27/2015 00 MH [facility] Atrophic Atrophic Disease Active Metho di [...] BOTOX/NO Diagnosis Active 2014-11-06 Memoria ORDER ORDER 3-04 14:24:00 l WRITTEN WRITTEN 00:00: Samuel Active 00 08/07/2014 MH [facility] BOTOX BOTOX Diagnosis Active 2013-062014-09-19 Mem oria Active 07-10 20:22:00 l 05/09/2014 00:00: Manny ng MH [facility] 00 STRENGTH STRENGTH Diagnosis Active 2016-12-28 Memoria UNLIMTED UNLIMTED 06-06 16:08:00 l Active 08:00: Samuel 06/06/2009 00 MH [facility] EVAL FOR EVAL FOR Diagnosis Active 2016-08-12 Memoria THERAPY THERAPY 02-17 02:17:00 l NEEDS- MS NEEDS- MS 01:01: Herm turner W FOOT W FOOT 00 DROP DROP Active 02/17/2006 MH [facility] MS MS Active Diagnosis Active 2013-08-03 Memoria 06/06/200006-06 09:55:00 l MH [facility] 23:59: Samuel 00 MULTIPLE MULTIPLE Diagnosis Active 2012-07-18 Memoria SCLEROSIS SCLEROSIS 06-06 15:22:00 l Active 23:59: Samuel 06/06/2000 00 MH [facility] STRENGTH STRENGTH Diagnosis Active 2018-05-02 Memoria UNLIMITED UNLIMITED 06-06 11:06:00 l Active 08:00: Samuel 06/06/2000 00 MH [facility] Foot Foot Problem Active 2021-12-24 Memor ia swelling swelling 00:08:07 l (finding) (finding) Herm turner Active Problem 12/24/2021 [facility], [facility], CLAUDE Cerrato,[facility] History of History Problem Active 2021-12-24 Memoria - of - 00:08:07 l artificial artificial He rmann joint joint (context-d (context-d ependent ependent category) category) Active Problem 12/24/2021 [facility], [facility], CLAUDE Cerrato,[facility] Hammer toe Hammer Problem Active 2021-12-24 Memoria (disorder) toe 00:08:07 l (disorder) Manny n Active Problem 12/24/[address] [facility] Shoulder Shoulder Problem Active 2021-12-24 Memoria pain pain 00:08:07 l (finding) (finding) Herm turner Active Problem 12/24/2021 [facility] Neuro, Ortho [facility] Spine,MH [facility],MH SMR Bobby Trace,[facility] Spasm Spasm Problem Active 2021-12-24 Memor ia (finding) (finding) 00:08:07 l Active Samuel Problem 12/24/2021 [facility] Neuro, [facility] Spine,MH [facility],MH SMR Bobby Trace,[facility] Spasticity Spasticit Problem Active 2021-12-24 Memoria (finding) y 00:08:07 l (finding) Samuel Active Problem 12/24/2021 [facility] Neuro, Ortho [facility] Spine,MH [facility], SMR Bobby Trace,[facility] Swelling Swelling Problem Active 2021-12-24 Memoria of lower of lower 00:08:07 l limb limb [place] (finding) (finding) Active Problem 12/24/2021 [facility] Neuro, Ortho [facility] Spine,MH [facility], SMR Bobby Trace,[facility] Tachycardi Tachycard Problem Active 2021-12-24 Memoria a ia 00:08:07 l (finding) (finding) Herm turner Active Problem 12/24/[address] [facility] MS - MS - Problem Active 2013-01-12 Memor ia Multiple Multiple 20:36:14 l sclerosis sclerosis Herm turner Active Problem 01/12/2013 [facility] Sclerosis Sclerosis Problem Active 2016-03-21 Memoria (morpholog (morpholog 00:40:21 l ic ic [place] abnormalit abnormalit y) y) Active Problem 03/21/2016 multiple sclerosis [facility], SMR [place] CHRONIC CHRONIC Diagnosis Active 2014-09-03 Memoria PAIN NEC PAIN NEC 11:03:00 l Active [place] [facility] MULTIPLE MULTIPLE Diagnosis Active 2012-10-16 Memoria SCLEROSIS SCLEROSIS 19:11:00 l Active Manny n [facility] SPASM OF SPASM OF Diagnosis Active 2015-02-05 Memoria MUSCLE MUSCLE 14:37:00 l Active Samuel [facility] ABN ABN Diagnosis Active 2015-02-05 Mem oria INVOLUN INVOLUN 14:37:00 l MOVEMENT MOVEMENT Manny n NEC NEC Active [facility] NECK / NECK / Diagnosis Active 2014-03-07 M emoria SHOULDER SHOULDER 07:07:00 l PAIN PAIN Samuel Active SMR [place] OTHER OTHER Diagnosis Active 2017-05-21 Mem [...] n [facility] OTHER OTHER Diagnosis Active 2017-02-14 Me moria CHRONIC CHRONIC 16:19:00 l PAIN PAIN [place] Active [facility] Pain in Pain in Problem 2017-03-13 Me moria left left 03:34:46 l shoulder shoulder Manny n 03/13/2017 MH [facility] Other Other Problem 2017-10-14 Brien mora muscle muscle 16:10:39 l spasm spasm [place] 10/14/2017 MH [facility] Multiple Multiple Problem 2017-10-14 Memoria sclerosis sclerosis 16:10:39 l 10/14/2017 Manny n MH [facility] Body mass Body mass Problem 2017-10-14 Memoria index index 16:10:39 l (BMI) (BMI) [place] 21.0-21.9, 21.0-21.9, adult adult 10/14/2017 MH [facility] Presence Presence Problem 2017-10-14 Memoria of right of right 16:10:39 l artificial artificial He rmann knee joint knee joint 10/14/2017 [facility] Cancer Cancer Problem Resolve 2013-01-12 Mem oria Resolved d 20:36:14 l Problem [place] 01/12/2013 <sup>1</alvarado p>Breast,o varian MH [facility] Sclerosis Problem Resolve 2013-01-12 M emoria Sclerosis d 20:36:14 l Resolved [place] Problem 01/12/2013 <sup>2</alvarado p>multiple sclerosis MH [facility] Weakness - Weakness Problem Resolve 2013-01-12 Memoria general - general d 20:36:14 l Resolved [place] Problem 01/12/2013 MH [facility] Malignant Malignant Problem Resolve 2016-03-21 Memoria neoplasm, neoplasm, d 00:40:21 l primary primary [place] (morpholog (morpholog ic ic abnormalit abnormalit y) y) Resolved Problem 03/21/2016 Breast,ova liam MH [facility],MH SMR [place] Primary Primary Problem Active [place] osteoarthr osteoarthr [...] replacemen t, initial t, initial encounter encounter Bilateral Bilateral Disease Active Met hodi lumbar lumbar st radiculopa radiculopa Ho spita thy thy l 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 Malignant Malignant Problem Resolve 2021-12-24 2021-12-24 Memoria tumor of tumor of d 06-06 00:08:07 00:08:07 l breast breast 00:00: Samuel (disorder) (disorder) 00 Resolved 06/06/2006 Problem 12/24/2021 left [facility], [facility] Saqib,[facility] History of Past Illness Condition Condition Condition Status Onset Resolution Last Treating Co mments Source Name Details Category Date Date Treatment Clinician Date Persons Persons Problem 2017-062018-11-19 2018-11-19 Memoria encounteri encounteri 07-05 12:54:53 12:54:53 l ng health health 09:28: Herm turner services services 12 in other in other specified specified circumstan circumstan vlad vlad 05/05/2018 11/19/2018 MH [facility] Other Other Problem 2017-062018-09-09 2018-09-09 M emoria specified specified 07-05 12:07:21 12:07:21 l dorsopathi dorsopathi 04:51: Marlon bartlett es, es, 18 cervical cervical region region 05/05/2018 09/09/2018 [facility] Other Other Problem 2017-2017-10-14 2017-10-14 Memoria abnormalit abnormalit 10-09 16:10:39 16:10:39 l ies of ies of 03:18: Samuel gait and gait and 43 mobility mobility 10/09/2017 10/14/2017 MH [facility] Allergies, Adverse Reactions, Alerts Allergy Allergy Status Severity Reaction(s) Onset Inactive Treating Comm ents Source Name Type Date Date Clinician No Known Propensi Active Method i Drug ty to 08-08 st Allergie adverse 00:00: Hospita s reaction 00 l s to drug NO KNOWN Allergy Active [facility] ALLERGIE S No Known No Known Active Memori a Medicati Medicati l on on Samuel Allergie Allergie s s Family History Family Member Diagnosis Comments Start Date Stop Date Source Natural brother Kidney disease [facility] Natural brother Learning disabilities [facility] Natural father Arthritis [facility] Natural father Heart disease [facility] Natural father Kidney disease [facility] mother Arthritis [facility] mother Kidney disease [facility] Natural sister Kidney disease [facility] Social History Social Habit Start Date Stop Date Quantity Comments Source Gender identity [facility] Sexual orientation [facility] History of Social 2022-10-24 2022-10-[address] function 00:00:00 00:00:00 Hospital Tobacco use and 2022-08-06 2022-08-06 Smokeless Cheondoism exposure 00:00:00 00:00:00 tobacco non-user Hospital Cigarettes smoked 2022-08-06 2022-08-[address] current (pack per 00:00:00 00:00:00 Hospita l day) - Reported Cigarette 2022-08-06 2022-08-06 Cheondoism pack-years 00:00:00 00:00:00 Hospital Alcohol intake 2021-08-26 2021-08-26 Current CAYDEN Blankenship es 00:00:00 00:00:00 non-drinker of Medical Ce nter alcohol (finding) Social History 2016-09-15 2016-09-15 [facility] dre 18:53:46 18:53:46 History of tobacco 1988-06-12 Cigarette Smoker Cheondoism use 00:00:00 Hospital Sex [birth year] At [birth year] CAYDEN Qureshi 00:00:00 [facility]:00 [facility] Smoking Status Start Date Stop Date Source Never smoked tobacco [facility] (finding) Ex-smoker 2022-08-06 00:00:00 2022-08-06 00:00:00 [facility] Medications Ordered Filled Start Stop Current Ordering Indication Dosage Frequency Signature Comments Components Source Medication Medication Date Date Medication? Clinician (SIG) Name Name multivitami Yes 1{tbl} QD Take 1 Me thodi n 5-[address] (THERAGRAN) 17:54: mouth Hospi ta tablet 38 daily. l polyethylen 2022-0 Yes 17g Q24H Take 17 g M ethodi e glycol 5-[address] (MIRALAX) 17:54: daily as Hosp vlad 17 gram 38 needed for l packet constipati on. cholecalcif 2022-0 Yes 5000U QD Take 1 Met hodi donna, 5-[address] vitamin D3, 17:54: (5,000 Hosp vlad 125 mcg 38 Units l (5,000 total) by unit) mouth tablet daily. gabapentin 0 Yes 200mg Q.[id number] Take 2 Methodi (NEURONTIN) 5-[id number] 100 mg 17:54: 3D (200 mg Hospita capsule 38 total) by l mouth 3 (three) times a day. multivitami Yes 1{tbl} QD Take 1 Me thodi n 5-[address] (THERAGRAN) 17:54: mouth Hospi ta tablet 38 daily. l polyethylen 2022-0 Yes 17g Q24H Take 17 g M ethodi e glycol 5-[address] (MIRALAX) 17:54: daily as Hosp vlad 17 gram 38 needed for l packet constipati on. cholecalcif 2022-0 Yes 5000U QD Take 1 Met hodi donna, 5-[address] vitamin D3, 17:54: (5,000 Hosp vlad 125 mcg 38 Units l (5,000 total) by unit) mouth tablet daily. gabapentin 2022-0 Yes 200mg Q.[id number] Take 2 Methodi (NEURONTIN) 5-[id number] 100 mg 17:54: 3D (200 mg Hospita capsule 38 total) by l mouth 3 (three) times a day. multivitami 2022-0 Yes 1{tbl} QD Take 1 Me thodi n 5-[address] (THERAGRAN) 17:54: mouth Hospi ta tablet 38 daily. l polyethylen 2022-0 Yes 17g Q24H Take 17 g M ethodi e glycol 5-[address] (MIRALAX) 17:54: daily as Hosp vlad 17 gram 38 needed for l packet constipati on. cholecalcif 0 Yes 5000U QD Take 1 Met hodi donna, 5-[address] vitamin D3, 17:54: (5,000 Hosp vlad 125 mcg 38 Units l (5,000 total) by unit) mouth tablet daily. gabapentin 0 Yes 200mg Q.[id number] Take 2 Methodi (NEURONTIN) 5-[id number] 100 mg 17:54: 3D (200 mg Hospita capsule 38 total) by l mouth 3 (three) times a day. carBAMazepi 0 2022- No 100mg Q.5D Take 1 Me thodi ne XR -11 07-[address] (TEGretol 13:32: 00:00 (100 mg Hosp vlad XR) 100 MG 28 :00 total) by l 12 hr mouth 2 tablet (two) times a day as needed (trigemina l neuralgia) . carBAMazepi 2022-0 2022- No 100mg Q.5D Take 1 Me thodi ne XR - 04-[address] (TEGretol 13:32: 00:00 (100 mg Hosp vlad XR) 100 MG 28 :00 total) by l 12 hr mouth 2 tablet (two) times a day as needed (trigemina l neuralgia) . carBAMazepi 2022-0 2022- No 100mg Q.5D Take 1 Me thodi ne XR 4- 04-[address] (TEGretol 13:32: 00:00 (100 mg Hosp vlad XR) 100 MG 28 :00 total) by l 12 hr mouth 2 tablet (two) times a day as needed (trigemina l neuralgia) . carBAMazepi 2022-0 2022- No 100mg Q.5D Chew 1 Me thodi ne - 05-[address] (TEGretol) 00:00: 04:59 (100 mg Hos yareli 100 mg 00 :00 total) 2 l chewable (two) tablet times a day as needed (trigemina l neuralgia pain) for up to 30 days. carBAMazepi 3-0 2023- No 100mg Q.5D Chew 1 Me mcdaniel ne 09-09-[address] (TEGretol) 00:00: 04:59 (100 mg Hos yareli 100 mg 00 :00 total) 2 l chewable (two) tablet times a day as needed (trigemina l neuralgia pain) for up to 30 days. carBAMazepi 2022-0 2023- No 100mg Q.5D Chew 1 Me reyesodi ne 09-09- tablet st (TEGretol) 00:00: 04:59 (100 mg Hos yareli 100 mg 00 :00 total) 2 l chewable (two) tablet times a day as needed (trigemina l neuralgia pain) for up to 30 days. doxycycline 2022-0 2023- No 50mg Q.5D Take 1 Met hodi (VIBRAMYCIN 09-09-[address] ) 50 MG 00:00: 04:59 (50 mg Hospita capsule 00 :00 total) by l mouth 2 (two) times a day for 3 days. doxycycline 2022-0 2023- No 50mg Q.5D Take 1 Met hodi (VIBRAMYCIN - 04-[address] ) 50 MG 00:00: 04:59 (50 mg Hospita capsule 00 :00 total) by l mouth 2 (two) times a day for 3 days. doxycycline 3-0 2023- No 50mg Q.5D Take 1 Met hodi (VIBRAMYCIN 4- 04-[address] ) 50 MG 00:00: 04:59 (50 mg Hospita capsule 00 :00 total) by l mouth 2 (two) times a day for 3 days. protein 2023-0 2023- No Q.[id number] Take by Methodi powder 4-04 04-[id number] 09:21: 00:00 3W (three) Hospita 41 :00 times a l week. protein 2023-0 2023- No [id number] Take by Methodi powder 4-04 04-[id number] 09:21: 00:00 3W (three) [facility] 41 :00 times a l week. protein 2022-0 2022- No [id number] Take by [facility] powder 4-09 07- [id number] mouth 3 st 09:21: 00:00 3W (three) [facility]osp[facility] 41 :00 times a l week. traMADoL 2022-0 Yes [id number] 100mg Q8H Take 2 [facility] di (ULTRAM) 50 3-[address] mg tablet 00:00: (100 mg Hospi ta 00 total) by l mouth every 8 (eight) hours .chronic pain. traMADoL 2022-0 Yes [id number] 100mg Q8H Take 2 [facility] di (ULTRAM) 50 3-[address] mg tablet 00:00: (100 mg Hos[facility] 00 total) by l mouth every 8 (eight) hours .chronic pain. traMADoL 2022-0 Yes [id number] 100mg Q8H Take 2 [facility] di (ULTRAM) 50 3-[address] mg tablet 00:00: (100 mg [facility] ta 00 total) by l mouth every 8 (eight) hours .chronic pain. DULoxetine 2022- No [id number] 30mg Q.5D Take 1 [facility] (Cymbalta) 08-10- capsule st 30 MG 00:00: 00:00 (30 mg [facility]osp[facility] capsule 00 :00 total) by l mouth 2 (two) times a day. oxyCODone 2022-0 2022- No [id number] 10mg Q4H Take 1 [facility] (ROXICODONE 08-10-04 tablet (10 s t ) 10 MG 00:00: 00:00 mg total) [facility] tablet 00 :00 by mouth l every 4 (four) hours as needed for moderate pain .acute pain. Max Daily Amount: 60 mg DULoxetine 2022-0 2022- No [id number] 30mg Q.5D Take 1 [facility] (Cymbalta) 3-12 07-[address] 30 MG 00:00: 00:00 (30 mg [facility]osp[facility] capsule 00 :00 total) by l mouth 2 (two) times a day. oxyCODone 2022-0 2022- No [id number] 10mg Q4H Take 1 [facility] (ROXICODONE 3-12 07-04 tablet (10 s t ) 10 MG 00:00: 00:00 mg total) [facility] tablet 00 :00 by mouth l every 4 (four) hours as needed for moderate pain .acute pain. Max Daily Amount: 60 mg DULoxetine 2022- No [id number] 30mg Q.5D Take 1 [facility] (Cymbalta) 08-[address] 30 MG 00:00: 00:00 (30 mg [facility] capsule 00 :00 total) by l mouth 2 (two) times a day. oxyCODone 0 2022- [place] [id number] 10mg Q4H Take 1 [facility]il (ROXICODONE 08-10 tablet (10 s t ) 10 MG 00:00: 00:00 mg total) [facility] tablet 00 :00 by mouth l every 4 (four) hours as needed for moderate pain .acute pain. Max Daily Amount: 60 mg fluocinonid 2022-0 2023- No [id number] Q.5D Apply [facility] (LIDEX) 08-06-[address] 0.05 % 00:00: 05:59 2 (two) [facility]osp[facility] external 00 :00 times a l solution day. fluocinonid 2022-0 4- No [id number] Q.5D Apply [facility] (LIDEX) 08-06 03-[address] 0.05 % 00:00: 05:59 2 (two) [facility] external 00 :00 times a l solution day. fluocinonid 2022-0 4- No [id number] Q.5D Apply [facility] (LIDEX) 08-06-[address] 0.05 % 00:00: 05:59 2 (two) [facility] external 00 :00 times a l solution day. Eliquis 5 3-0 Yes 5mg Q.5D Take 1 [facility] mg tablet 3-01 tablet (5 00:00: mg total) [facility]osp[facility] 00 by mouth 2 l (two) times a day. Eliquis 5 3-0 Yes 5mg Q.5D Take 1 [facility] mg tablet 3-01 tablet (5 00:00: mg total) [facility]osp[facility] 00 by mouth 2 l (two) times a day. Eliquis 5 3-0 Yes 5mg Q.5D Take 1 [facility] mg tablet 3-01 tablet (5 st 00:00: mg total) [facility]osp[facility] 00 by mouth 2 l (two) times a day. Entresto 2022-0 Yes 1{tbl} Q.5D Take 1 [facility] di 24-26 mg 2-[address] tablet per 00:00: mouth 2 [facility] tablet 00 (two) l times a day. Entresto 2022-0 Yes 1{tbl} Q.5D Take 1 [facility] di 24-26 mg 2-[address] tablet per 00:00: mouth 2 [facility] tablet 00 (two) l times a day. Entresto 2022-0 Yes 1{tbl} Q.5D Take 1 Metho di [...] 24 hr (two) tablet times a day. metoprolol 2022-0 2022- No 25mg Q.5D Take 1 [facility]il succinate 2- 04-06 tablet (25 st XL 00:00: 00:00 mg total) [facility]osp[facility] (TOPROL-XL) 00 :00 by mouth 2 l 25 mg 24 hr (two) tablet times a day. metoprolol 2022-0 2022- No 25mg Q.5D Take 1 [facility] c[facility] succinate 2- 04-06 tablet (25 st XL 00:00: 00:00 mg total) [facility]osp[facility] (TOPROL-XL) 00 :00 by mouth 2 l 25 mg 24 hr (two) tablet times a day. venlafaxine 2021-06- No 37.5mg QD Take 1 [facility] XR (Effexor 07-[address] XR) 37.5 MG 00:00: 05:59 (37.5 mg H [facility]spita 24 hr 00 :00 total) by l capsule mouth daily. venlafaxine 2021-06- No 37.5mg QD Take 1 [facility] XR (Effexor 07-[address] XR) 37.5 MG 00:00: 05:59 (37.5 mg H [facility] 24 hr 00 :00 total) by l capsule mouth daily. venlafaxine 2021-06 No 37.5mg QD Take 1 [facility] XR (Effexor 07-[address] XR) 37.5 MG 00:00: 05:59 (37.5 mg H [facility]sp[facility] 24 hr 00 :00 total) by l capsule mouth daily. gabapentin 2021-06- No [id number] Take two [facility] (NEURONTIN) 07-14- po tid st 100 mg 00:00: 00:00 [facility]osp[facility] capsule 00 :00 l gabapentin 2021-06 No [id number] Take two [facility] (NEURONTIN) 07-14- po tid st 100 mg 00:00: 00:00 [facility]osp[facility] capsule 00 :00 l gabapentin 2021-06- No [id number] Take two [facility] (NEURONTIN) 07-14- po tid st 100 mg 00:00: 00:00 [facility]osp[facility] capsule 00 :00 l traMADoL 2021-06- No [id number] 100mg Q8H Take 2 Meth cecil (ULTRAM) 50 07-14-[address] mg tablet 00:00: 00:00 (100 mg [facility] 00 :00 total) by l mouth every 8 (eight) hours .chronic pain. traMADoL 2021-06 No [id number] 100mg Q8H Take 2 Meth cecil (ULTRAM) 50 07-14-[address] mg tablet 00:00: 00:00 (100 mg [facility] 00 :00 total) by l mouth every 8 (eight) hours .chronic pain. traMADoL 2021-06 No [id number] 100mg Q8H Take 2 Meth cecil (ULTRAM) 50 07-14-[address] mg tablet 00:00: 00:00 (100 mg [facility] 00 :00 total) by l mouth every 8 (eight) hours .chronic pain. lubiproston 2021-06- No 24ug Q.5D Take 1 [facility] e (Amitiza) 07-[address] 24 MCG 00:00: 05:59 (24 mcg [facility]ospita capsule 00 :00 total) by l mouth 2 (two) times a day with meals for 30 days. lubiproston 2021-06- No 24ug Q.5D Take 1 [facility] e (Amitiza) 2-01 04-[address] 24 MCG 00:00: 05:59 (24 mcg [facility]ospita capsule 00 :00 total) by l mouth 2 (two) times a day with meals for 30 days. lubiproston 2021-06- No 24ug Q.5D Take 1 [facility] e (Amitiza) 2-01 04- capsule st 24 MCG 00:00: 05:59 (24 mcg [facility]osp[facility] capsule 00 :00 total) by l mouth 2 (two) times a day with meals for 30 days. traMADoL 2021-06 Yes [id number] 100mg Q8H Take 2 [facility] di (ULTRAM) 50 1-[address] mg tablet 00:00: (100 mg Hospi ta 00 total) by l mouth every 8 (eight) hours .chronic pain. traMADoL 2021-06 Yes [id number] 100mg Q8H Take 2 [facility] di (ULTRAM) 50 1-[address] mg tablet 00:00: (100 mg Hos[facility] ta 00 total) by l mouth every 8 (eight) hours .chronic pain. traMADoL 2021-06- No [id number] 100mg Q8H Take 2 Meth cecil (ULTRAM) 50 1-10 12-[address] mg tablet 00:00: 00:00 (100 mg [facility] 00 :00 total) by l mouth every 8 (eight) hours .chronic pain. traMADoL 2021-06- No [id number] 100mg Q8H Take 2 [facility] cecil (ULTRAM) 50 1-10 12-[address] mg tablet 00:00: 00:00 (100 mg [facility] 00 :00 total) by l mouth every 8 (eight) hours .chronic pain. traMADoL 2021-06- No [id number] 100mg Q8H Take 2 Meth cecil (ULTRAM) [...] unit) mouth tablet daily. protein 2021-06 Yes Q.[id number] Take by [facility] powder 0-[id number] 18:02: 3W (three) [facility]osp[facility] [...] 31 needed. l packet protein 2021-06 Yes Q.[id number] Take by M [facility] powder 0-[id number] 18:02: 3W (three) [facility] 31 times a l week. multivitami 2021-06 Yes 1{tbl} QD Take 1 Me thodi n 0-[address] (THERAGRAN) 18:02: mouth [facility]pi ta tablet 31 daily. l carBAMazepi 2022-1 Yes 100mg Q.5D Take 100 M ethodi [...] 31 needed. l packet protein 2021-06 Yes Q.[id number] Take by M [facility] powder 0-[id number] 18:02: 3W (three) [facility]ospita [...] 31 needed. l packet protein 2021-06 Yes Q.[id number] Take by M [facility] powder 0-[id number] 18:02: 3W (three) [facility] [...] tablet mouth daily for 30 days. protein 2021- Yes Q.[id number] Take by [facility] powder 0-[id number] 22:48: 3W (three) [facility]ospita [...] 00 :00 by mouth l daily. pantoprazol 2021-06- No 40mg QD Take 1 Met hodi e 0-05 04-04 tablet (40 st (PROTONIX) 00:00: 00:00 mg total) [facility] 40 MG EC 00 :00 by mouth l tablet daily. furosemide 2021-06- No 40mg QD Take 1 Meth cecil (LASIX) 40 0-05 04-04 tablet (40 st mg tablet 00:00: 00:00 mg total) Ho [facility]ita 00 :00 by mouth l daily. pantoprazol 2021-06 No 40mg QD Take 1 Met hodi e 0-05 04-04 tablet (40 st (PROTONIX) 00:00: 00:00 mg total) [facility] 40 MG EC 00 :00 by mouth l tablet daily. furosemide 2021-06 [...] by (5,000 mouth unit) daily. tablet apixaban 2021-06 No 5mg Q.5D Take 1 [facility] (ELIQUIS) 5 0-01 09-30 tablet (5 st mg tablet 18:55: 00:00 mg total) Ho [facility] 02 :00 by mouth 2 l (two) times a day. osimertinib 2021-06 No 80mg QD Take 1 Met hodi (TAGRISSO) 030 tablet (80 st 80 mg chemo 18:55: 00:00 mg total) [facility]osp[facility] tablet 02 :00 by mouth l daily. apixaban 2021-06- No 5mg Q.5D Take 1 [facility] (ELIQUIS) 5 003-05 tablet (5 st mg tablet 18:55: 00:00 mg total) [facility] 02 :00 by mouth 2 l (two) times a day. osimertinib 2021-06 No 80mg QD Take 1 [facility]odi (TAGRISSO) 003-05 tablet (80 st 80 mg chemo 18:55: 00:00 mg total) [facility]osp[facility] tablet 02 :00 by mouth l daily. apixaban 2021-06 No 5mg Q.5D Take 1 [facility] (ELIQUIS) 5 003-05 tablet (5 st mg tablet 18:55: 00:00 mg total) [facility] 02 :00 by mouth 2 l (two) times a day. osimertinib 2021-06 No 80mg QD Take 1 [facility]odi (TAGRISSO) 003-05 tablet (80 st 80 mg chemo 18:55: 00:00 mg total) [facility]osp[facility] tablet 02 :00 by mouth l daily. apixaban 2021-06 No 5mg Q.5D Take 1 [facility] (ELIQUIS) 5 003-05 tablet (5 st mg tablet 18:55: 00:00 mg total) [facility] 02 :00 by mouth 2 l (two) times a day. osimertinib 2021-06 No 80mg QD Take 1 [facility]odi (TAGRISSO) 003-05 tablet (80 st 80 mg chemo 18:55: 00:00 mg total) [facility]osp[facility] tablet 02 :00 by mouth l daily. apixaban 2021-06- No 5mg Q.5D Take 1 [facility] (ELIQUIS) 5 0-01 09-30 tablet (5 st mg tablet 18:55: 00:00 mg total) [facility] 02 :00 by mouth 2 l (two) times a day. osimertinib 2021-06- No 80mg QD Take 1 [facility] (TAGRISSO) 0-30 tablet (80 st 80 mg chemo 18:55: 00:00 mg total) [facility]osp[facility] tablet 02 :00 by mouth l daily. apixaban 2021-06 No 5mg Q.5D Take 1 [facility] (ELIQUIS) 5 0-30 tablet (5 st mg tablet 18:55: 00:00 mg total) [facility] 02 :00 by mouth 2 l (two) times a day. osimertinib 2021-06 No 80mg QD Take 1 [facility] (TAGRISSO) 003-05 tablet (80 st 80 mg chemo 18:55: 00:00 mg total) [facility]osp[facility] tablet 02 :00 by mouth l daily. apixaban 2021-06 No 5mg Q.5D Take 1 [facility] (ELIQUIS) 5 0-30 tablet (5 st mg tablet 18:55: 00:00 mg total) [facility] 02 :00 by mouth 2 l (two) times a day. osimertinib 2021-06 No 80mg QD Take 1 [facility] (TAGRISSO) 003-05 tablet (80 st 80 mg chemo 18:55: 00:00 mg total) [facility]osp[facility] tablet 02 :00 by mouth l daily. apixaban 2021-06 No 5mg Q.5D Take 1 [facility] (ELIQUIS) 5 0-30 tablet (5 st mg tablet 18:55: 00:00 mg total) [facility] 02 :00 by mouth 2 l (two) times a day. osimertinib 2021-06 No 80mg QD Take 1 [facility] (TAGRISSO) 0-30 tablet (80 st 80 mg chemo 18:55: [...] Q.5D Take 1 [facility] (ELIQUIS) 5 0-30 tablet (5 st mg tablet 18:55: 00:00 mg total) [facility]ita 02 :00 by mouth 2 l (two) times a day. osimertinib 2021-06 No 80mg QD Take 1 [facility] (TAGRISSO) 0-03-05 tablet (80 st 80 mg chemo 18:55: 00:00 mg total) [facility]osp[facility] tablet 02 :00 by mouth l daily. apixaban 2021-06 No 5mg Q.5D Take 1 [facility] (ELIQUIS) 5 0-03-05 tablet (5 st mg tablet 18:55: 00:00 mg total) [facility] 02 :00 by mouth 2 l (two) times a day. osimertinib 2021-06 No 80mg QD Take 1 [facility] (TAGRISSO) 0-03-05 tablet (80 st 80 mg chemo 18:55: [...] l tablet daily for 30 days. protein 2022-0 Yes Q.[id number] Take by [facility] powder 9-[id number] 18:55: 3W (three) [facility] 55 times a l week. multivitami 2022-0 Yes 1{tbl} QD Take 1 Me thodi n 9-[address] (THERAGRAN) 18:55: mouth Hospi ta tablet 55 daily. l carBAMazepi 2022-0 Yes 100mg Q.5D Take 100 M [facility]i ne XR 9-[address] (TEGretol 18:55: mouth 2 Hospi ta XR) 100 MG 55 (two) l 12 hr times a tablet day as needed. polyethylen 2022-0 Yes 17g Q24H Take 17 g M ethodi e glycol 9-[address] (MIRALAX) 18:55: daily as [facility] 17 gram 55 needed. l packet protein 2022-0 Yes Q.[id number] Take by [facility] powder 9-[id number] 18:55: 3W (three) [facility] 55 times a l week. multivitami 2022-0 Yes 1{tbl} QD Take 1 [facility] thodi n 9-[address] (THERAGRAN) 18:55: mouth Hospi ta tablet 55 daily. l carBAMazepi 2022-0 Yes 100mg Q.5D Take 100 M [facility]i ne XR 9-[address] (TEGretol 18:55: mouth 2 Hospi ta XR) 100 MG 55 (two) l 12 hr times a tablet day as needed. polyethylen 2022-0 Yes 17g Q24H Take 17 g M [facility]i e glycol 9-[address] (MIRALAX) 18:55: daily as [facility] 17 gram 55 needed. l packet protein 2022-0 Yes Q.[id number] Take by M [facility] powder 9-[id number] 18:55: 3W (three) [facility] 55 times a l week. multivitami 2022-0 Yes 1{tbl} QD Take 1 Me thodi n 9-[address] (THERAGRAN) 18:55: mouth Hospi ta tablet 55 daily. l carBAMazepi 2022-0 Yes 100mg Q.5D Take 100 M [facility]i ne XR 9-[address] (TEGretol 18:55: mouth 2 Hospi ta XR) 100 MG 55 (two) l 12 hr times a tablet day as needed. polyethylen Yes 17g Q24H Take 17 g [...] No .5{tbl} Q.5D Take 0.5 [facility] valsartan - 10-[address] (ENTRESTO) 00:00: 04:59 mouth 2 [facility] y[facility]li 24-26 mg 00 :00 (two) l tablet per times a tablet day for 30 days. sennosides- 2021- No 2{tbl} Q.5D Take 2 M [facility]i docusate 03-05 10-[address] sodium 00:00: 04:59 mouth 2 [facility]osp[facility] (SENOKOT-S) 00 :00 (two) l 8.6-50 mg times a per tablet day for 30 days. metoprolol 2021-0 2021- No 25mg Q12H Take 1 [facility] succinate -30 10-31 tablet (25 st XL 00:00: 04:59 [...] tablet day for 30 days. metoprolol 2021-0 2022- No 25mg Q12H Take 1 Meth cecil [...] tablet day for 30 days. metoprolol 2021-0 2022- No 25mg Q12H Take 1 Meth cecil [...] 2{tbl} Q.5D Take 2 M [facility]i docusate -30 10-[address] sodium 00:00: 04:59 mouth 2 [facility]osp[facility] (SENOKOT-S) 00 :00 (two) l 8.6-50 mg times a per tablet day for 30 days. metoprolol 2021-2021- No 25mg Q12H Take 1 [facility] c[facility]il succinate 9- 10-31 tablet (25 st XL 00:00: 04:59 mg total) [facility]osp[facility] (TOPROL-XL) 00 :00 by mouth l 25 mg 24 hr every 12 tablet (twelve) hours for 30 days. apixaban 2021- No 5mg Q.5D Take 1 [facility] (ELIQUIS) 5 03-05-31 tablet (5 st mg tablet 00:00: 04:59 mg total) Ho [facility] 00 :00 by mouth 2 l (two) times a day for 30 days. sacubitriL- 2021- No .5{tbl} Q.5D Take 0.5 [facility] valsartan - 10-[address] (ENTRESTO) 00:00: 04:59 mouth 2 [facility] 24-26 mg 00 :00 (two) l tablet per times a tablet day for 30 days. sennosides- 2021- No 2{tbl} Q.5D Take 2 M [facility]i docusate 03-05 10-[address] sodium 00:00: 04:59 mouth 2 [facility]osp[facility] (SENOKOT-S) 00 :00 (two) l 8.6-50 mg times a per tablet day for 30 days. furosemide 2021-2021- No 40mg QD Take 1 [facility] c[facility] (Lasix) 40 9-30 10-05 tablet (40 st mg tablet 00:00: 00:00 mg total) [facility] 00 :00 by mouth l daily for 30 days. furosemide 2021-2021- No 40mg QD Take 1 [facility] cecil [...] mouth l daily for 30 days. furosemide 2021-2021- No 40mg QD Take 1 [facility] cecil [...] mouth l daily for 30 days. methylPREDN 2022-0 Yes follow Meth cecil ISolone [...] Julian,) 4 mg 00 l tablet methylPREDN 2021-0 2022- No follow [facility] ISolone 03-04 04-[address] (Medrol, 00:00: 00:00 directions Ho [facility] Julian,) 4 mg 00 :00 l tablet methylPREDN 2021-0 2022- No follow [facility] ISolone 03-04-[address] (Medrol, 00:00: 00:00 directions Ho [facility] Julian,) 4 mg 00 :00 l tablet methylPREDN 2021-0 2022- No follow [facility] ISolone 03-04 04-[address] (Medrol, 00:00: 00:00 directions Ho sp[facility] Julian,) 4 mg 00 :00 l tablet levoFLOXaci 2021-0 2021- No 500mg QD Take 1 Me thodi n 03-[address] (Levaquin) 00:00: 00:00 (500 mg [facility] 500 MG 00 :00 total) by l tablet mouth daily. levoFLOXaci 2021-0 2021- No 500mg QD Take 1 Me thodi n 03-[address] (Levaquin) 00:00: 00:00 (500 mg [facility] 500 MG 00 :00 total) by l tablet mouth daily. levoFLOXaci 2021-0 2021- No 500mg QD Take 1 Me thodi n 03-[address] (Levaquin) 00:00: 00:00 (500 mg [facility] 500 MG 00 :00 total) by l tablet mouth daily. levoFLOXaci 2021-0 2021- No 500mg QD Take 1 Me thodi n 03-[address] (Levaquin) 00:00: 00:00 (500 mg [facility] 500 MG 00 :00 total) by l tablet mouth daily. levoFLOXaci 2-0 2022- No 500mg QD Take 1 Me thodi n 03-[address] (Levaquin) 00:00: 00:00 (500 mg [facility] 500 MG 00 :00 total) by l tablet mouth daily. levoFLOXaci 2-0 2- No 500mg QD Take 1 Me thodi n 03-[address] (Levaquin) 00:00: 00:00 (500 mg [facility] 500 MG 00 :00 total) by l tablet mouth daily. levoFLOXaci 2021- No 500mg QD Take 1 Me jonas ng 03-04 10-[address] (Levaquin) 00:00: 00:00 (500 mg [facility] 500 MG 00 :00 total) by l tablet mouth daily. omega-3s-dh 2021- No QD Take by Me mcdaniel a-epa-fish 02-[address] oil-D3 350 02:43: 00:00 daily. [facility] mg-400 mg- 59 :00 l 1,000 unit capsule omega-3s-dh 2021- No QD Take by Me mcdaniel a-epa-fish 02-[address] oil-D3 350 02:43: 00:00 daily. [facility] mg-400 mg- 59 :00 l 1,000 unit capsule omega-3s-dh 2021- No QD Take by Me jonas aquino-epa-fish 02-[address] oil-D3 350 02:43: 00:00 daily. [facility] mg-400 mg- 59 :00 l 1,000 unit capsule omega-3s-dh 2021- No QD Take by Me jonas aquino-epa-fish 02-[address] oil-D3 350 02:43: 00:00 daily. [facility] mg-400 mg- 59 :00 l 1,000 unit capsule omega-3s-dh 2021- No QD Take by Me jonas aquino-epa-fish 02-[address] oil-D3 350 02:43: 00:00 daily. [facility] mg-400 mg- 59 :00 l 1,000 unit capsule omega-3s-dh 2021- No QD Take by Me mcdaniel a-epa-fish 02-[address] oil-D3 350 02:43: 00:00 daily. [facility] mg-400 mg- 59 :00 l 1,000 unit capsule omega-3s-dh 2021- No QD Take by Me mcdaniel a-epa-fish 02-[address] oil-D3 350 02:43: 00:00 daily. [facility] mg-400 mg- 59 :00 l 1,000 unit capsule omega-3s-dh 2021- No QD Take by Me jonas aquino-epa-fish 02-[address] oil-D3 350 02:43: 00:00 daily. [facility] mg-400 mg- 59 :00 l 1,000 unit capsule omega-3s-dh 2021- No QD Take by Me jonas aquino-epa-fish 02-[address] oil-D3 350 02:43: 00:00 daily. [facility] mg-400 mg- 59 :00 l 1,000 unit capsule omega-3s-dh 2021- No QD Take by Me jonas aquino-epa-fish 02-[address] oil-D3 350 02:43: 00:00 daily. [facility] mg-400 mg- 59 :00 l 1,000 unit capsule omega-3s-dh 2021- No QD Take by Me jonas aquino-epa-fish 02-[address] oil-D3 350 02:43: 00:00 daily. [facility] mg-400 mg- 59 :00 l 1,000 unit capsule methylnaltr 2021-0 Yes [id number] 450mg Q24H Take 450 [facility] exone 7-[address] (Relistor) 00:00: mouth [facility] 150 mg 00 daily as l tablet needed (constipat ion). methylnaltr 2021-0 Yes [id number] 450mg Q24H Take 450 [facility] exone 7-[address] (Relistor) 00:00: mouth [facility] a 150 mg 00 daily as l tablet needed (constipat ion). methylnaltr 2-0 Yes [id number] 450mg Q24H Take 450 [facility] exone 7-[address] (Relistor) 00:00: mouth Hospit a 150 mg 00 daily as l tablet needed (constipat ion). methylnaltr 2-0 Yes [id number] 450mg Q24H Take 450 [facility] exone 7-[address] (Relistor) 00:00: mouth Hospit a 150 mg 00 daily as l tablet needed (constipat ion). methylnaltr Yes [id number] 450mg Q24H Take 450 [facility] exone 7-[address] (Relistor) 00:00: mouth Hospit a 150 mg 00 daily as l tablet needed (constipat ion). methylnaltr Yes [id number] 450mg Q24H Take 450 [facility] exone 7-[address] (Relistor) 00:00: mouth Hospit a 150 mg 00 daily as l tablet needed (constipat ion). methylnaltr Yes [id number] 450mg Q24H Take 450 [facility] exone 7-[address] (Relistor) 00:00: mouth Hospit a 150 mg 00 daily as l tablet needed (constipat ion). methylnaltr Yes [id number] 450mg Q24H Take 450 [facility] exone 7-[address] (Relistor) 00:00: mouth Hospit a 150 mg 00 daily as l tablet needed (constipat ion). methylnaltr 2022- No [id number] 450mg Q24H Take 450 [facility] exone 7-22 04-[address] (Relistor) 00:00: 00:00 mouth [facility] ta 150 mg 00 :00 daily as l tablet needed (constipat ion). methylnaltr 2022- No [id number] 450mg Q24H Take 450 [facility] exone 7-22 04-[address] (Relistor) 00:00: 00:00 mouth [facility] 150 mg 00 :00 daily as l tablet needed (constipat ion). methylnaltr 2022- No [id number] 450mg Q24H Take 450 [facility] exone 7-22 04-[address] (Relistor) 00:00: 00:00 mouth [facility] ta 150 mg 00 :00 daily as l tablet needed (constipat ion). traMADoL Yes [id number] 100mg Q8H Take 2 [facility] di (ULTRAM) 50 6-[address] mg tablet 00:00: (100 mg [facility] ta 00 total) by l mouth every 8 (eight) hours as needed for moderate pain for up to 30 days .chronic pain. DULoxetine 2021-0 Yes [id number] 30mg Q.5D Take 1 [facility] (Cymbalta) 6-[address] 30 MG 00:00: (30 mg [facility]osp[facility] capsule 00 total) by l mouth 2 (two) times a day. DULoxetine 2021-0 Yes [id number] 30mg Q.5D Take 1 [facility] (Cymbalta) 6-[address] 30 MG 00:00: (30 mg [facility]osp[facility] capsule 00 total) by l mouth 2 (two) times a day. DULoxetine 2021-0 Yes [id number] 30mg Q.5D Take 1 [facility] (Cymbalta) 6-[address] 30 MG 00:00: (30 mg [facility] capsule 00 total) by l mouth 2 (two) times a day. traMADoL 2021-0 Yes [id number] 100mg Q8H Take 2 [facility] (ULTRAM) 50 6-[address] mg tablet 00:00: (100 mg [facility] ta 00 total) by l mouth every 8 (eight) hours as needed for moderate pain for up to 30 days .chronic pain. DULoxetine 2021-0 Yes [id number] 30mg Q.5D Take 1 [facility] (Cymbalta) 6-[address] 30 MG 00:00: (30 mg [facility]osp[facility] capsule 00 total) by l mouth 2 (two) times a day. traMADoL 2021-0 Yes [id number] 100mg Q8H Take 2 [facility] (ULTRAM) 50 6-[address] mg tablet 00:00: (100 mg [facility] ta 00 total) by l mouth every 8 (eight) hours as needed for moderate pain for up to 30 days .chronic pain. DULoxetine 2021-0 Yes [id number] 30mg Q.5D Take 1 [facility] (Cymbalta) 6-[address] 30 MG 00:00: (30 mg [facility] capsule 00 total) by l mouth 2 (two) times a day. traMADoL 2021-0 Yes [id number] 100mg Q8H Take 2 [facility] (ULTRAM) 50 6-[address] mg tablet 00:00: (100 mg [facility] ta 00 total) by l mouth every 8 (eight) hours as needed for moderate pain for up to 30 days .chronic pain. DULoxetine 2021-0 Yes [id number] 30mg Q.5D Take 1 [facility] (Cymbalta) 6-[address] 30 MG 00:00: (30 mg [facility]osp[facility] capsule 00 total) by l mouth 2 (two) times a day. traMADoL Yes [id number] 100mg Q8H Take 2 [facility] (ULTRAM) 50 6-[address] mg tablet 00:00: (100 mg [facility] ta 00 total) by l mouth every 8 (eight) hours as needed for moderate pain for up to 30 days .chronic pain. DULoxetine Yes [id number] 30mg Q.5D Take 1 [facility] (Cymbalta) 6-[address] 30 MG 00:00: (30 mg [facility] capsule 00 total) by l mouth 2 (two) times a day. traMADoL Yes [id number] 100mg Q8H Take 2 [facility] (ULTRAM) 50 6-[address] mg tablet 00:00: (100 mg [facility] ta 00 total) by l mouth every 8 (eight) hours as needed for moderate pain for up to 30 days .chronic pain. DULoxetine Yes [id number] 30mg Q.5D Take 1 [facility] (Cymbalta) 6-[address] 30 MG 00:00: (30 mg [facility] capsule 00 total) by l mouth 2 (two) times a day. DULoxetine 2022- No [id number] 30mg Q.5D Take 1 [facility] (Cymbalta) 6-28 03-[address] 30 MG 00:00: 00:00 (30 mg [facility] capsule 00 :00 total) by l mouth 2 (two) times a day. DULoxetine 2022- No [id number] 30mg Q.5D Take 1 [facility] (Cymbalta) 6-28 03-[address] 30 MG 00:00: 00:00 (30 mg [facility] capsule 00 :00 total) by l mouth 2 (two) times a day. DULoxetine 2022- No [id number] 30mg Q.5D Take 1 [facility] (Cymbalta) 6-28 03-[address] 30 MG 00:00: 00:00 (30 mg [facility] capsule 00 :00 total) by l mouth 2 (two) times a day. traMADoL 2021- No [id number] 100mg Q8H Take 2 Meth cecil (ULTRAM) 50 6-28 11-[address] mg tablet 00:00: 00:00 (100 mg [facility] 00 :00 total) by l mouth every 8 (eight) hours as needed for moderate pain for up to 30 days .chronic pain. traMADoL 2021- No [id number] 100mg Q8H Take 2 Meth cecil (ULTRAM) 50 6-28 11-[address] mg tablet 00:00: 00:00 (100 mg [facility] 00 :00 total) by l mouth every 8 (eight) hours as needed for moderate pain for up to 30 days .chronic pain. traMADoL 2021- [place] [id number] 100mg Q8H Take 2 Meth cecil (ULTRAM) 50 6-28 11-[address] mg tablet 00:00: 00:00 (100 mg [facility] 00 :00 total) by l mouth every 8 (eight) hours as needed for moderate pain for up to 30 days .chronic pain. traMADoL 2021- [place] [id number] 100mg Q8H Take 2 Meth cecil (ULTRAM) 50 6-28 11-[address] mg tablet 00:00: 00:00 (100 mg [facility] 00 :00 total) by l mouth every 8 (eight) hours as needed for moderate pain for up to 30 days .chronic pain. traMADoL 0 2021- [place] [id number] 100mg Q8H Take 2 Meth cecil (ULTRAM) [...] 24 daily .for hr overactive bladder. docosahexae 2-0 2022- No 2g Take 2 g [facility] 11-[address] acid-epa 18:27: 00:00 [facility]osp[facility] 120-180 mg 57 :00 l capsule docosahexae 2-0 2021- No 2g Take 2 g [facility] no[facility] - 05- by mouth. st acid-epa 18:27: 00:00 [facility]osp[facility] 120-180 mg 57 :00 l capsule docosahexae 2-0 2- No 2g Take 2 g M [facility]i noic 11-03 05- by mouth. st acid-epa 18:27: 00:00 [facility] 120-180 mg 57 :00 l capsule docosahexae 2022-0 2022- No 2g Take 2 g M ethodi noic 11-03 05- by mouth. st acid-epa 18:27: 00:00 [facility] 120-180 mg 57 :00 l capsule docosahexae 2-0 2- No 2g Take 2 g M ethodi noic 5- 05- by mouth. st acid-epa 18:27: 00:00 [facility] 120-180 mg 57 :00 l capsule docosahexae 2022-0 2- No 2g Take 2 g M ethodi noic 11-03 05- by mouth. st acid-epa 18:27: 00:00 [facility] 120-180 mg 57 :00 l capsule docosahexae 2-0 2021- No 2g Take 2 g M ethodi noic 11-03 05-[address] acid-epa 18:27: 00:00 [facility] 120-180 mg 57 :00 l capsule docosahexae 2-0 2021- No 2g Take 2 g M ethodi noic 11-03- by mouth. st acid-epa 18:27: 00:00 [facility] 120-180 mg 57 :00 l capsule traMADoL 2021-0 2021- No [id number] 50mg Q8H Take 1 [facility] (ULTRAM) 50 10-15 tablet (50 s t mg tablet 00:00: 00:00 mg total) [facility] 00 :00 by mouth l every 8 (eight) hours as needed for moderate pain for up to 30 days .chronic pain. traMADoL 2021-0 2021- No [id number] 50mg Q8H Take 1 [facility] (ULTRAM) 50 5-12 06-28 tablet (50 s t mg tablet 00:00: 00:00 mg total) [facility] 00 :00 by mouth l every 8 (eight) hours as needed for moderate pain for up to 30 days .chronic pain. traMADoL 2021- No [id number] 50mg Q8H Take 1 [facility] (ULTRAM) 50 5-12 06-28 tablet (50 s t mg tablet 00:00: 00:00 mg total) [facility] 00 :00 by mouth l every 8 (eight) hours as needed for moderate pain for up to 30 days .chronic pain. traMADoL 2021- No [id number] 50mg Q8H Take 1 [facility] (ULTRAM) 50 5-12 06-28 tablet (50 s t mg tablet 00:00: 00:00 mg total) [facility] 00 :00 by mouth l every 8 (eight) hours as needed for moderate pain for up to 30 days .chronic pain. traMADoL 2021- [place] [id number] 50mg Q8H Take 1 [facility] (ULTRAM) 50 5-12 06-28 tablet (50 s t mg tablet 00:00: 00:00 mg total) [facility] 00 :00 by mouth l every 8 (eight) hours as needed for moderate pain for up to 30 days .chronic pain. traMADoL 2021- No [id number] 50mg Q8H Take 1 [facility] (ULTRAM) 50 5-12 06-28 tablet (50 s t mg tablet 00:00: 00:00 mg total) [facility] 00 :00 by mouth l every 8 (eight) hours as needed for moderate pain for up to 30 days .chronic pain. traMADoL 2021- [place] [id number] 50mg Q8H Take 1 [facility] (ULTRAM) 50 5-12 06-28 tablet (50 s t mg tablet 00:00: 00:00 mg total) [facility] 00 :00 by mouth l every 8 (eight) hours as needed for moderate pain for up to 30 days .chronic pain. traMADoL 2021- [place] [id number] 50mg Q8H Take 1 [facility] (ULTRAM) 50 5-12 06-28 tablet (50 s t mg tablet 00:00: 00:00 mg total) [facility] 00 :00 by mouth l every 8 (eight) hours as needed for moderate pain for up to 30 days .chronic pain. meclizine 2021-0 Yes [id number] 25mg Q.[id number] Take 1 [facility] (ANTIVERT) 4-19 [id number] tablet (25 st 25 mg 00:00: 3D mg total) [facility]osp[facility] tablet 00 by mouth 3 l (three) times a day as needed for dizziness. meclizine 2021-0 Yes [id number] 25mg Q.[id number] Take 1 [facility] (ANTIVERT) 4-19 [id number] tablet (25 st 25 mg 00:00: 3D mg total) [facility]osp[facility] tablet 00 by mouth 3 l (three) times a day as needed for dizziness. meclizine 2021-0 Yes [id number] 25mg Q.[id number] Take 1 [facility] (ANTIVERT) 4-19 [id number] tablet (25 st 25 mg 00:00: 3D mg total) [facility]osp[facility] tablet 00 by mouth 3 l (three) times a day as needed for dizziness. meclizine 2021-0 Yes [id number] 25mg Q.[id number] Take 1 [facility] (ANTIVERT) 4-19 [id number] tablet (25 st 25 mg 00:00: 3D mg total) [facility]osp[facility] tablet 00 by mouth 3 l (three) times a day as needed for dizziness. meclizine 2021-0 Yes [id number] 25mg Q.[id number] Take 1 [facility] (ANTIVERT) 4-19 [id number] tablet (25 st 25 mg 00:00: 3D mg total) [facility]osp[facility] tablet 00 by mouth 3 l (three) times a day as needed for dizziness. meclizine 2-0 Yes [id number] 25mg Q.[id number] Take 1 [facility] (ANTIVERT) 4-19 [id number] tablet (25 st 25 mg 00:00: 3D mg total) [facility]osp[facility] tablet 00 by mouth 3 l (three) times a day as needed for dizziness. meclizine 2-0 Yes [id number] 25mg Q.[id number] Take 1 [facility] (ANTIVERT) 4-19 [id number] tablet (25 st 25 mg 00:00: 3D mg total) [facility]osp[facility] tablet 00 by mouth 3 l (three) times a day as needed for dizziness. meclizine 2021-0 Yes [id number] 25mg Q.[id number] Take 1 [facility] (ANTIVERT) 4-19 [id number] tablet (25 st 25 mg 00:00: 3D mg total) [facility]osp[facility] tablet 00 by mouth 3 l (three) times a day as needed for dizziness. meclizine 2021-0 Yes [id number] 25mg Q.[id number] Take 1 [facility] (ANTIVERT) 4-19 [id number] tablet (25 st 25 mg 00:00: 3D mg total) [facility]osp[facility] tablet 00 by mouth 3 l (three) times a day as needed for dizziness. meclizine 2021-0 Yes [id number] 25mg Q.[id number] Take 1 [facility] (ANTIVERT) 4-19 [id number] tablet (25 st 25 mg 00:00: 3D mg total) [facility]osp[facility] tablet 00 by mouth 3 l (three) times a day as needed for dizziness. meclizine 2021-0 Yes [id number] 25mg Q.[id number] Take 1 [facility] (ANTIVERT) 4-19 [id number] tablet (25 st 25 mg 00:00: 3D mg total) [facility]osp[facility] tablet 00 by mouth 3 l (three) times a day as needed for dizziness. predniSONE 2021-0 2021- No [id number] 40mg QD Take 2 [facility] (DELTASONE) 4-19 04-[address] 20 mg 00:00: 04:59 (40 mg [facility]osp[facility] tablet 00 :00 total) by l mouth daily for 5 days. predniSONE 2021-0 2021- No [id number] 40mg QD Take 2 [facility] (DELTASONE) 4-19 04-[address] 20 mg 00:00: 04:59 (40 mg [facility]osp[facility] tablet 00 :00 total) by l mouth daily for 5 days. predniSONE 2021-0 2021- No [id number] 40mg QD Take 2 [facility] (DELTASONE) 4-19 04-[address] 20 mg 00:00: 04:59 (40 mg [facility] tablet 00 :00 total) by l mouth daily for 5 days. predniSONE 2021-0 2021- No [id number] 40mg QD Take 2 [facility] (DELTASONE) 4-19 04-[address] 20 mg 00:00: 04:59 (40 mg [facility]osp[facility] tablet 00 :00 total) by l mouth daily for 5 days. predniSONE 2021- No [id number] 40mg QD Take 2 [facility] (DELTASONE) 4-19 04-[address] 20 mg 00:00: 04:59 (40 mg [facility] tablet 00 :00 total) by l mouth daily for 5 days. predniSONE 2021- No [id number] 40mg QD Take 2 [facility] (DELTASONE) 4 04-[address] 20 mg 00:00: 04:59 (40 mg [facility] tablet 00 :00 total) by l mouth daily for 5 days. predniSONE 2021- No [id number] 40mg QD Take 2 [facility] (DELTASONE) 4 04-[address] 20 mg 00:00: 04:59 (40 mg [facility] tablet 00 :00 total) by l mouth daily for 5 days. predniSONE 2021- No [id number] 40mg QD Take 2 [facility] (DELTASONE) 09-22 04-[address] 20 mg 00:00: 04:59 (40 mg [facility] tablet 00 :00 total) by l mouth daily for 5 [place] [id number] 50mg Q6H Take 1 [facility] (ULTRAM) 50 4-08 05-12 tablet (50 s t mg tablet 00:00: 00:00 mg total) [facility] 00 :00 by mouth l every 6 (six) hours as needed for moderate pain for up to 30 [place] [id number] 50mg Q6H Take 1 [facility] (ULTRAM) 50 4-08 05-12 tablet (50 s t mg tablet 00:00: 00:00 mg total) [facility] 00 :00 by mouth l every 6 (six) hours as needed for moderate pain for up to 30 [place] [id number] 50mg Q6H Take 1 [facility] (ULTRAM) 50 4-08 05-12 tablet (50 s t mg tablet 00:00: 00:00 mg total) [facility] 00 :00 by mouth l every 6 (six) hours as needed for moderate pain for up to 30 days .chronic pain. traM[place] 2021- [place] [id number] 50mg Q6H Take 1 [facility] (ULTRAM) 50 4-08 05-12 tablet (50 s t mg tablet 00:00: 00:00 mg total) [facility] 00 :00 by mouth l every 6 (six) hours as needed for moderate pain for up to 30 days .chronic pain. traMADoL 2021- No [id number] 50mg Q6H Take 1 [facility] (ULTRAM) 50 4-08 05-12 tablet (50 s t mg tablet 00:00: 00:00 mg total) [facility] 00 :00 by mouth l every 6 (six) hours as needed for moderate pain for up to 30 days .chronic pain. traMADoL 2021- No [id number] 50mg Q6H Take 1 [facility] (ULTRAM) 50 4-08 05-12 tablet (50 s t mg tablet 00:00: 00:00 mg total) [facility] 00 :00 by mouth l every 6 (six) hours as needed for moderate pain for up to 30 days .chronic pain. traMADoL 2021- [place] [id number] 50mg Q6H Take 1 [facility] (ULTRAM) 50 4-08 05-12 tablet (50 s t mg tablet 00:00: 00:00 mg total) [facility] 00 :00 by mouth l every 6 (six) hours as needed for moderate pain for up to 30 days .chronic pain. traMADoL 2021- [place] [id number] 50mg Q6H Take 1 [facility] (ULTRAM) [...] mouth 2 (two) times a day. DULoxetine 2021- No 30mg Q.5D Take 1 [facility] (Cymbalta) 3-02 12-[address] 30 MG 00:00: 00:00 (30 mg [facility] capsule 00 :00 total) by l mouth 2 (two) times a day. DULoxetine 2021- No 30mg Q.5D Take 1 [facility] (Cymbalta) 3-02 12-[address] 30 MG 00:00: 00:00 (30 mg [facility] capsule 00 :00 total) by l mouth 2 (two) times a day. DULoxetine 2021- No 30mg Q.5D Take 1 [facility] (Cymbalta) 3-02 12-[address] 30 MG 00:00: 00:00 (30 mg [facility] capsule 00 :00 total) by l mouth 2 (two) times a day. DULoxetine 2021- No 30mg Q.5D Take 1 [facility] (Cymbalta) 3-02 12-[address] 30 MG 00:00: 00:00 (30 mg [facility] capsule 00 :00 total) by l mouth 2 (two) times a day. DULoxetine 2021- No 30mg Q.5D Take 1 [facility] (Cymbalta) 09-01-[address] 30 MG 00:00: 00:00 (30 mg [facility] capsule 00 :00 total) by l mouth 2 (two) times a day. DULoxetine 2021- No 30mg Q.5D Take 1 [facility] (Cymbalta) -02 12-[address] 30 MG 00:00: 00:00 (30 mg [facility] capsule 00 :00 total) by l mouth 2 (two) times a day. DULoxetine 2021- No 30mg Q.5D Take 1 [facility] (Cymbalta) 3-02 12-[address] 30 MG 00:00: 00:00 (30 mg [facility] capsule 00 :00 total) by l mouth 2 (two) times a day. [place]DROcodone 2021- No [id number] 1{tbl} Q6H Take 1 [facility] -acetaminop 3- 04-[address] [place] (NORCO) 00:00: 04:59 [facility] 10-325 mg 00 :00 every 6 l per tablet (six) hours as needed for moderate pain for up to 30 days .chronic pain. Max Daily Amount: 4 tablets HYDROcodone 2022-0 2021- No [id number] 1{tbl} Q6H Take 1 [facility] -acetaminop 3-29 04-[address] [facility] ([place]) 00:00: 04:59 mouth [facility] 10-325 mg 00 :00 every 6 l per tablet (six) hours as needed for moderate pain for up to 30 days .chronic pain. Max Daily Amount: 4 tablets HYDROcodone 2021-0 2021- [place] [id number] 1{tbl} Q6H Take 1 [facility] -acetaminop 3-29 04-[address] [facility] ([place]) 00:00: 04:59 mouth [facility] 10-325 mg 00 :00 every 6 l per tablet (six) hours as needed for moderate pain for up to 30 days .chronic pain. Max Daily Amount: 4 tablets HYDROcodone 2021-0 2021- No [id number] 1{tbl} Q6H Take 1 [facility] -acetaminop 3-29 04-[address] [facility] ([place]) 00:00: 04:59 mouth [facility] 10-325 mg 00 :00 every 6 l per tablet (six) hours as needed for moderate pain for up to 30 days .chronic pain. Max Daily Amount: 4 tablets HYDROcodone 2021-0 2021- [place] [id number] 1{tbl} Q6H Take 1 [facility] -acetaminop 3-29 04-[address] [facility] ([place]) 00:00: 04:59 mouth [facility] 10-325 mg 00 :00 every 6 l per tablet (six) hours as needed for moderate pain for up to 30 days .chronic pain. Max Daily Amount: 4 tablets HYDROcodone 2022-0 2021- No [id number] 1{tbl} Q6H Take 1 [facility] -acetaminop 3-29 04-[address] [facility] ([place]) 00:00: 04:59 mouth [facility] 10-325 mg 00 :00 every 6 l per tablet (six) hours as needed for moderate pain for up to 30 days .chronic pain. Max Daily Amount: 4 tablets HYDROcodone 2022-0 2021- [place] [id number] 1{tbl} Q6H Take 1 [facility] -acetaminop 3-29 04-[address] [facility] ([place]) 00:00: 04:59 mouth [facility] 10-325 mg 00 :00 every 6 l per tablet (six) hours as needed for moderate pain for up to 30 days .chronic pain. Max Daily Amount: 4 tablets HYDROcodone 0 2- No [id number] 1{tbl} Q6H Take 1 [facility] -acetaminop -29 -[address] [facility] ([place]) 00:00: 04:59 mouth [facility] 10-325 mg 00 :00 every 6 l per tablet (six) hours as needed for moderate pain for up to 30 days .chronic pain. Max Daily Amount: 4 tablets fesoterodin 0 Yes 4mg QD Take 4 [...] ST PER PT) baclofen 0 Yes 30mg Q.[id number] Take [address] [facility] (LIORESAL) 3-23 [id number] [facility] 10 MG 10:15: 3D (three) Medical tablet 11 times Center daily . lubiproston 0 Yes 24ug Q.5D Take [address] [facility] (AMITIZA) 3-23 mcg by [facility] 24 MCG 10:15: mouth 2 Medical capsule 11 (two) Center times daily. multivitami 0 Yes 1{capsu QD Take [address] n capsule 3-23 le} capsule by [facility] 10:15: mouth Medical 11 daily. [place] calcium Yes 1{tbl} Take [address] [facility] [address] carbonate-v 3-23 tablet by [place] es itamin D3 10:15: mouth 2 Medic al (CALCIUM- 11 (two) Center TAMIN D) times 500 daily with mg(1,250mg) breakfast -200 unit and per tablet dinner. ergocalcife Yes 1000U QD Take 1,[address] [facility] [address] rol, 3-23 Units by [facility] vitamin D2, 10:15: mouth Medic al (VITAMIN 11 daily. [place] D2) 1,000 unit Cap ascorbic Yes 1000mg QD Take 1,[address] acid, 3-23 mg by [facility] vitamin C, 10:15: mouth Medica l (VITAMIN C) 11 daily. [place] 1000 MG tablet b complex Yes 1{capsu QD Take [address] [facility] vitamins 3-23 le} capsule by [facility] capsule 10:15: mouth Medical 11 daily. [place] cyanocobala Yes 1000ug QD Take 1,[address] min 3-23 mcg by [facility] (VITAMIN 10:15: mouth Medical B-12) 1000 11 daily. [place] MCG tablet omega-3 Yes 2g Q.5D Take [...] 10:15: daily . Medica l tablet 11 [place] DULoxetine Yes 30mg QD Take 30 mg [...] 10:15: daily. Medic al ER tablet 11 [place] ibuprofen Yes 200mg Take [address] [facility] [...] (LOPRESSOR) 10:15: Medica l 25 MG 11 [place] tablet gabapentin Yes 400mg Take [address] (NEURONTIN) 3-23 mg by [facility] 600 MG 10:15: mouth. Medical tablet 11 [place] polyethylen Yes 17g Take [address] e glycol 3-23 by mouth [facility] (GLYCOLAX) 10:15: as needed. M edical 17 gram 11 [place] packet oxyCODONE Yes 5mg Take [address] [facility] (OXY-IR) 5 3-23 by mouth [facility] mg capsule 10:15: every 4 Medi carmelina 11 (four) Center hours as needed. fesoterodin 0 Yes 4mg QD Take [address] [facility] (TOVIAZ) 3-23 by mouth [facility] 4 mg 24 hr 10:15: daily. Medic al tablet 11 [place] linaclotide 2022-0 Yes Take by [facility] [...] CARDIOLOGI ST PER PT) baclofen Yes 30mg Q.[id number] Take [address] [facility] (LIORESAL) 3-23 [id number] by mouth 3 [facility] 10 MG 10:15: [...] [facility] capsule 10:15: mouth Medical 11 daily. [place] cyanocobala Yes 1000ug QD Take 1,000 [facility] [...] 10:15: daily . Medica l tablet 11 [place] DULoxetine Yes 30mg QD Take [address] (CYMBALTA) 3-23 by mouth [facility] 30 MG 10:15: daily. Medical capsule 11 [place] traMADoL Yes 50mg Take [address] [facility] (ULTRAM) 50 3-23 by mouth [facility] mg tablet 10:15: every 6 Medic al 11 (six) Center hours as needed for Pain. mirabegron Yes QD Take by [facility] (Myrbetriq) 3-23 [facility] 50 mg Tb24 10:15: daily. Medic al ER tablet 11 [place] ibuprofen Yes 200mg Take [address] [...] hr 10:15: daily. Medic al tablet 11 [place] linaclotide Yes Take by [facility] 290 [...] ST PER PT) baclofen 0 Yes 30mg Q.[id number] Take [address] [facility] (LIORESAL) 3-23 [id number] by mouth 3 [facility] 10 MG 10:15: [...] [facility] capsule 10:15: mouth Medical 11 daily. [place] cyanocobala Yes 1000ug QD Take 1,000 [facility] [...] . Medica l tablet 11 Center DULoxetine 0 Yes 30mg QD Take [address] (CYMBALTA) 3-23 by mouth [facility] 30 MG 10:15: daily. Medical capsule 11 Center traMADoL 0 Yes 50mg Take [address] [facility] (ULTRAM) 50 3-23 by mouth [facility] mg tablet 10:15: every 6 Medic al 11 (six) Center hours as needed for Pain. mirabegron 0 Yes QD Take by [facility] (Myrbetriq) 3-23 [facility] 50 mg Tb24 10:15: daily. Medic al ER tablet 11 [place] ibuprofen Yes 200mg Take [address] [facility] [...] Center 10mg every 12 hours . metoprolol 0 Yes 25mg Take [address] tartrate 3-23 by mouth . [facility] (LOPRESSOR) 10:15: Medica l 25 MG 11 [place] tablet gabapentin 0 Yes 400mg Take [address] (NEURONTIN) 3-23 mg by [facility] 600 MG 10:15: mouth. Medical tablet 11 Center polyethylen 0 Yes 17g Take [address] e glycol 3-23 by mouth [facility] (GLYCOLAX) 10:15: as needed. M edical 17 gram 11 [place] packet oxyCODONE 2022-0 Yes 5mg Take 5 [...] CARDIOLOGI ST PER PT) baclofen Yes 30mg Q.[id number] Take [address] [facility] (LIORESAL) 3-23 [id number] by mouth 3 [facility] 10 MG 10:15: [...] -200 unit and per tablet dinner. ergocalcife 2022-0 Yes 1000U QD Take 1,[address] rol, 3-23 Units by [facility] vitamin D2, 10:15: mouth Medic al (VITAMIN 11 daily. [place] D2) 1,000 unit Cap ascorbic Yes 1000mg QD Take 1,[address] acid, 3-23 mg by [facility] vitamin C, 10:15: mouth Medica l (VITAMIN C) 11 daily. [place] 1000 MG tablet b complex Yes 1{capsu QD Take [address] [facility] vitamins 3-23 le} capsule by [facility] capsule 10:15: mouth Medical 11 daily. [place] cyanocobala Yes 1000ug QD Take 1,[address] min 3-23 mcg by [facility] (VITAMIN 10:15: mouth Medical B-12) 1000 11 daily. [place] MCG tablet omega-3 Yes 2g Q.5D Take [...] 10:15: daily . Medica l tablet 11 [place] DULoxetine Yes 30mg QD Take [address] (CYMBALTA) 3-23 by [facility] 30 MG 10:15: daily. Medical capsule 11 [place] traMADoL Yes 50mg Take [address] [facility] (ULTRAM) 50 3-23 by mouth [facility] mg tablet 10:15: every 6 Medic al 11 (six) Center hours as needed for Pain. mirabegron Yes QD Take by [facility] (Myrbetriq) 3-23 [facility] 50 mg Tb24 10:15: daily. Medic al ER tablet 11 [place] ibuprofen Yes 200mg Take [address] [...] as needed. M edical 17 gram 11 [place] packet oxyCODONE Yes 5mg Take 5 mg [...] CARDIOLOGI ST PER PT) baclofen Yes 30mg Q.[id number] Take [address] [facility] (LIORESAL) 3-23 [id number] by mouth 3 [facility] 10 MG 10:15: [...] [facility] 10:15: mouth Medical 11 daily. [place] calcium Yes 1{tbl} Take [address] carbonate-v 3-23 tablet by [place] es itamin D3 10:15: mouth 2 Medic al (CALCIUM- 11 (two) Center TAMIN D) times 500 daily with mg(1,250mg) breakfast -200 unit and per tablet dinner. ergocalcife Yes 1000U QD Take 1,[address] rol, 3-23 Units by [place] vitamin D2, 10:15: mouth Medic al (VITAMIN 11 daily. Center D2) 1,000 unit Cap ascorbic Yes 1000mg QD Take 1,[address] acid, 3-23 mg by [facility] vitamin C, 10:15: mouth Medica l (VITAMIN C) 11 daily. Center 1000 MG tablet b complex Yes 1{capsu QD Take [address] [facility] [address] vitamins 3-23 le} capsule by [facility] capsule 10:15: mouth Medical 11 daily. [place] cyanocobala Yes 1000ug QD Take 1,000 [facility] [...] 10:15: daily. Medic al ER tablet 11 [place] ibuprofen Yes 200mg Take [address] [...] s 25 MG 24 hr 10:15: daily. [facility] tablet 11 12.5 (ON Center HOLD X [address] PER PT) baclofen Yes 30mg Q.[id number] Take [address] [facility] (LIORESAL) 3-23 [id number] by mouth 3 [facility] 10 MG 10:15: [...] [facility] acid, 3-23 mg by [facility] vitamin C, 10:15: mouth Medica l (VITAMIN C) 11 daily. Center 1000 MG tablet b complex Yes 1{capsu QD Take [address] vitamins 3-23 le} capsule by [facility] capsule 10:15: mouth Medical 11 daily. [place] cyanocobala Yes 1000ug QD Take 1,[address] min 3-23 mcg by [facility] (VITAMIN 10:15: mouth Medical B-12) 1000 11 daily. [place] MCG tablet omega-3 Yes 2g Q.5D Take [...] 10:15: daily . Medica l tablet 11 [place] DULoxetine 0 Yes 30mg QD Take 30 mg C [...] 10:15: daily. Medic al ER tablet 11 [place] ibuprofen Yes 200mg Take [address] [facility] (ADVIL,MOTR 3-23 mg by [facility] IN) 200 MG 10:15: mouth Medica l tablet 11 every 6 Center (six) hours as needed for Pain. dronabinoL 0 Yes 2.5mg Take 2.[address] [...] [facility] ry 10:15: daily Medical Medication Ampyra [place] 10mg every 12 hours . metoprolol 0 Yes 25mg Take [address] tartrate 3-23 by mouth . [facility] (LOPRESSOR) 10:15: Medica l 25 MG 11 [place] tablet gabapentin Yes 400mg Take [address] (NEURONTIN) 3-23 mg by [facility] 600 MG 10:15: mouth. Medical tablet 11 [place] polyethylen Yes 17g Take [address] e glycol 3-23 by mouth [facility] (GLYCOLAX) 10:15: as needed. edical 17 gram 11 [place] packet oxyCODONE Yes 5mg Take [address] [facility] (OXY-IR) 5 3-23 by [facility] mg capsule 10:15: every 4 Medi carmelina 11 (four) Center hours as needed. fesoterodin 0 Yes 4mg QD Take [address] [facility] (TOVIAZ) 3-23 by [facility] 4 mg 24 hr 10:15: daily. Medic al tablet 11 [place] linaclotide Yes Take by [facility] 290 [...] CARDIOLOGI ST PER PT) baclofen Yes 30mg Q.[id number] Take [address] [facility] (LIORESAL) 3-23 [id number] by mouth 3 [facility] 10 MG 10:15: [...] [facility] carbonate-v 3-23 tablet by [place] herrera itamin D3 10:15: mouth 2 Medic al [...] [facility] acid, 3-23 mg by [facility] vitamin C, 10:15: mouth Medica l (VITAMIN C) 11 daily. Center 1000 MG tablet b complex Yes 1{capsu QD Take [address] [facility] vitamins 3-23 le} capsule by [facility] capsule 10:15: mouth Medical 11 daily. [place] cyanocobala Yes 1000ug QD Take 1,[address] min 3-23 mcg by [facility] (VITAMIN 10:15: mouth Medical B-12) 1000 11 daily. [place] MCG tablet omega-3 Yes 2g Q.5D Take [...] 10:15: daily . Medica l tablet 11 [place] DULoxetine Yes 30mg QD Take [address] (CYMBALTA) 3-23 by mouth [facility] 30 MG 10:15: daily. Medical capsule 11 [place] traMADoL Yes 50mg Take [address] [facility] (ULTRAM) 50 3-23 by mouth [facility] mg tablet 10:15: every 6 Medic al 11 (six) Center hours as needed for Pain. mirabegron Yes QD Take by [facility] (Myrbetriq) 3-23 [facility] 50 mg Tb24 10:15: daily. Medic al ER tablet 11 [place] ibuprofen Yes 200mg Take [address] [...] hr 10:15: daily. Medic al tablet 11 [place] linaclotide Yes Take by [facility] 290 [...] sclerosis hours Every 12 hours . metoprolol 0 Yes 25mg QD Take [address] (TOPROL-XL) 3-23 by mouth [facility] 25 MG 24 hr 10:15: daily. [facility]i [place] tablet 11 12.5 (ON Center HOLD X [address] PER PT) baclofen 0 Yes 30mg Q.[id number] Take [address] [facility] (LIORESAL) 3-23 [id number] by mouth 3 [facility] 10 MG 10:15: [...] [facility] acid, 3-23 mg by [facility] vitamin C, 10:15: mouth Medica l (VITAMIN C) 11 daily. Center 1000 MG tablet b complex Yes 1{capsu QD Take [address] vitamins 3-23 le} capsule by [facility] capsule 10:15: mouth Medical 11 daily. [place] cyanocobala Yes 1000ug QD Take 1,000 [facility] [...] 10:15: daily. Medic al ER tablet 11 [place] ibuprofen Yes 200mg Take [address] [...] mouth. 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 metoprolol Yes 25mg Take [address] tartrate 3-23 by mouth . [facility] (LOPRESSOR) 10:15: Medica l 25 MG 11 [place] tablet gabapentin Yes 400mg Take [address] (NEURONTIN) 3-23 mg by [facility] 600 MG 10:15: mouth. Medical tablet 11 Center polyethylen Yes 17g Take [address] e glycol 3-23 by mouth [facility] (GLYCOLAX) 10:15: as needed. M edical 17 gram 11 [place] packet oxyCODONE Yes 5mg Take 5 mg [...] CARDIOLOGI ST PER PT) baclofen Yes 30mg Q.[id number] Take [address] [facility] (LIORESAL) 3-23 [id number] by mouth 3 [facility] 10 MG 10:15: [...] [facility] capsule 10:15: mouth Medical 11 daily. [place] cyanocobala Yes 1000ug QD Take 1,[address] min 3-23 mcg by [facility] (VITAMIN 10:15: mouth Medical B-12) 1000 11 daily. [place] MCG tablet omega-3 Yes 2g Q.5D Take [...] 10:15: daily . Medica l tablet 11 [place] DULoxetine Yes 30mg QD Take [address] (CYMBALTA) 3-23 by mouth [facility] 30 MG 10:15: daily. Medical capsule 11 [place] traMADoL Yes 50mg Take [address] [facility] (ULTRAM) 50 3-23 by mouth [facility] mg tablet 10:15: every 6 Medic al 11 (six) Center hours as needed for Pain. mirabegron Yes QD Take by [facility] (Myrbetriq) 3-23 [facility] 50 mg Tb24 10:15: daily. Medic al ER tablet 11 [place] ibuprofen Yes 200mg Take [address] [...] CARDIOLOGI ST PER PT) baclofen Yes 30mg Q.[id number] Take [address] [facility] (LIORESAL) 3-23 [id number] by mouth 3 [facility] 10 MG 10:15: [...] [facility] 10:15: mouth Medical 11 daily. [place] calcium Yes 1{tbl} Take [address] carbonate-v 3-23 tablet by [place] [facility] itamin D3 10:15: mouth 2 Medic al (CALCIUM- 11 (two) Center TAMIN D) times 500 daily with mg(1,250mg) breakfast -200 unit and per tablet dinner. ergocalcife Yes 1000U QD Take 1,[address] rol, 3-23 Units by [facility] vitamin D2, 10:15: mouth Medic al (VITAMIN 11 daily. Center D2) 1,000 unit Cap ascorbic Yes 1000mg QD Take 1,[address] acid, 3-23 mg by [place] vitamin C, 10:15: mouth Medica l (VITAMIN C) 11 daily. Center 1000 MG tablet b complex Yes 1{capsu QD Take [address] [facility] vitamins 3-23 le} capsule by [facility] capsule 10:15: mouth Medical 11 daily. [place] cyanocobala Yes 1000ug QD Take 1,000 [facility] [...] 10:15: daily. Medic al ER tablet 11 [place] ibuprofen Yes 200mg Take [address] [facility] [address] [...] hr 10:15: daily. Medic al tablet 11 [place] linaclotide Yes Take by [facility] 290 mcg Cap 3-23 mouth. [facility] 10:15: Once daily Medical 11 [place] carBAMazepi Yes 100mg Take 100 C HI [...] s 25 MG 24 hr 10:15: daily. [facility] [place] tablet 11 12.5 (ON Center HOLD X [address] PER PT) baclofen Yes 30mg [id number] Take [address] [facility] (LIORESAL) 3-23 [id number] by mouth 3 [facility] 10 MG 10:15: [...] Luke s 10:15: mouth Medical 11 daily. [place] calcium Yes 1{tbl} Take [address] [facility] [address] carbonate-v 3-23 tablet by [facility] itamin D3 10:15: mouth 2 Medic al (CALCIUM- 11 (two) Center TAMIN D) times 500 daily with mg(1,250mg) breakfast -200 unit and per tablet dinner. ergocalcife Yes 1000U QD Take 1,[address] [facility] rol, 3-23 Units by [facility] vitamin D2, 10:15: mouth Medic al (VITAMIN 11 daily. [place] D2) 1,000 unit Cap ascorbic Yes 1000mg QD Take 1,[address] acid, 3-23 mg by [facility] vitamin C, 10:15: mouth Medica l (VITAMIN C) 11 daily. [place] 1000 MG tablet b complex Yes 1{capsu QD Take [address] [facility] vitamins 3-23 le} capsule by [facility] capsule 10:15: mouth Medical 11 daily. [place] cyanocobala Yes 1000ug QD Take 1,[address] [facility] min 3-23 mcg by [facility] (VITAMIN 10:15: mouth Medical B-12) 1000 11 daily. [place] MCG tablet omega-3 Yes 2g Q.5D Take [...] 10:15: daily . Medica l tablet 11 [place] DULoxetine Yes 30mg QD Take 30 mg [...] 10:15: daily. Medic al ER tablet 11 [place] ibuprofen 0 Yes 200mg Take [address] [facility] (ADVIL,MOTR 3-23 mg by [facility] IN) 200 MG 10:15: mouth Medica l tablet 11 every 6 Center (six) hours as needed for Pain. dronabinoL 0 Yes 2.5mg Take 2.[address] [...] Center 10mg every 12 hours . metoprolol 0 Yes 25mg Take [address] tartrate 3-23 by mouth . [facility] (LOPRESSOR) 10:15: Medica l 25 MG 11 [place] tablet gabapentin Yes 400mg Take [address] (NEURONTIN) 3-23 mg by [facility] 600 MG 10:15: mouth. Medical tablet 11 Center polyethylen Yes 17g Take [address] e glycol 3-23 by mouth [facility] (GLYCOLAX) 10:15: as needed. M edical 17 gram 11 [place] packet oxyCODONE Yes 5mg Take [address] [facility] (OXY-IR) 5 3-23 by [facility] mg capsule 10:15: every 4 Medi [place] 11 (four) Center hours as needed. fesoterodin 0 Yes 4mg QD Take [address] e (TOVIAZ) 3-23 by [facility] 4 mg 24 hr 10:15: daily. Medic al tablet 11 [place] linaclotide Yes Take by [facility] 290 mcg Cap 3-23 mouth. [facility] 10:15: Once daily Medical 11 Center carBAMazepi 2022-0 Yes 100mg Take [address] [...] CARDIOLOGI ST PER PT) baclofen Yes 30mg Q.[id number] Take [address] [facility] (LIORESAL) 3-23 [id number] by mouth 3 [facility] 10 MG 10:15: [...] Luke s 10:15: mouth Medical 11 daily. [place] calcium Yes 1{tbl} Take [address] [facility] [...] [facility] capsule 10:15: mouth Medical 11 daily. Center cyanocobala Yes 1000ug QD Take 1,[address] min 3-23 mcg by [facility] (VITAMIN 10:15: mouth Medical B-12) 1000 11 daily. [place] MCG tablet omega-3 Yes 2g Q.5D Take [...] 10:15: daily . Medica l tablet 11 [place] DULoxetine Yes 30mg QD Take [address] (CYMBALTA) 3-23 by [facility] 30 MG 10:15: daily. Medical capsule 11 [place] traMADoL Yes 50mg Take [address] [facility] (ULTRAM) 50 3-23 by mouth [facility] mg tablet 10:15: every 6 Medic al 11 (six) Center hours as needed for Pain. mirabegron Yes QD Take by [facility] (Myrbetriq) 3-23 [facility] 50 mg Tb24 10:15: daily. Medic al ER tablet 11 [place] ibuprofen Yes 200mg Take [address] [...] hr 10:15: daily. Medic al tablet 11 [place] linaclotide Yes Take by [facility] 290 [...] ST PER PT) baclofen 0 Yes 30mg Q.[id number] Take [address] [facility] (LIORESAL) 3-23 [id number] by mouth 3 [facility] 10 MG 10:15: [...] 1,[address] [facility] [address] rol, 3-23 Units by [place] vitamin D2, 10:15: mouth Medic al (VITAMIN 11 daily. Center D2) 1,000 unit Cap ascorbic Yes 1000mg QD Take 1,[address] acid, 3-23 mg by [place] vitamin C, 10:15: mouth Medica l (VITAMIN C) 11 daily. Center 1000 MG tablet b complex Yes 1{capsu QD Take [address] [facility] [address] vitamins 3-23 le} capsule by [facility] capsule 10:15: mouth Medical 11 daily. [place] cyanocobala Yes 1000ug QD Take 1,[address] min 3-23 mcg by [place] (VITAMIN 10:15: mouth Medical B-12) 1000 11 [...] 10:15: daily. Medical capsule 11 Center traMADoL 0 Yes 50mg Take [address] [facility] (ULTRAM) 50 3-23 by mouth [facility] mg tablet 10:15: every 6 Medic al 11 (six) Center hours as needed for Pain. mirabegron 0 Yes QD Take by [facility] (Myrbetriq) 3-23 [facility] 50 mg Tb24 10:15: daily. Medic al ER tablet 11 [place] ibuprofen 0 Yes 200mg Take [address] [facility] (ADVIL,MOTR [...] ry 10:15: daily Medical Medication 11 Ampyra [place] 10mg every 12 hours . metoprolol Yes 25mg Take [address] tartrate 3-23 by mouth . [facility] (LOPRESSOR) 10:15: Medica l 25 MG 11 [place] tablet gabapentin Yes 400mg Take [address] (NEURONTIN) 3-23 mg by [facility] 600 MG 10:15: mouth. Medical tablet 11 Center polyethylen Yes 17g Take [address] e glycol 3-23 by mouth [facility] (GLYCOLAX) 10:15: as needed. M edical 17 gram 11 Center packet oxyCODONE 0 Yes 5mg Take [address] [facility] [...] CARDIOLOGI ST PER PT) baclofen Yes 30mg Q.[id number] Take [address] [facility] (LIORESAL) 3-23 [id number] by [facility] 3 [facility] 10 MG 10:15: [...] [facility] capsule 10:15: mouth Medical 11 daily. [place] cyanocobala Yes 1000ug QD Take 1,[address] min 3-23 mcg by [facility] (VITAMIN 10:15: mouth Medical B-12) 1000 11 daily. [place] MCG tablet omega-3 Yes 2g Q.5D Take [...] 10:15: daily . Medica l tablet 11 [place] DULoxetine Yes 30mg QD Take [address] (CYMBALTA) 3-23 by [facility] 30 MG 10:15: daily. Medical capsule 11 [place] traMADoL Yes 50mg Take [address] [facility] (ULTRAM) 50 3-23 by mouth [facility] mg tablet 10:15: every 6 Medic al 11 (six) Center hours as needed for Pain. mirabegron Yes QD Take by [facility] (Myrbetriq) 3-23 [facility] 50 mg Tb24 10:15: daily. Medic al ER tablet 11 [place] ibuprofen Yes 200mg Take [address] [...] Center 10mg every 12 hours . metoprolol 0 Yes 25mg Take 25 mg [facility] [...] sclerosis hours Every 12 hours . metoprolol 0 Yes 25mg QD Take [address] (TOPROL-XL) 3-23 by mouth [facility] 25 MG 24 hr 10:15: daily. Medi [place] tablet 11 12.5 (ON Center HOLD X [address] PER PT) baclofen Yes 30mg Q.[id number] Take [address] [facility] (LIORESAL) 3-23 [id number] by mouth 3 [facility] 10 MG 10:15: [...] [facility] 10:15: mouth Medical 11 daily. [place] calcium Yes 1{tbl} Take [address] carbonate-v 3-23 tablet by [facility] itamin D3 10:15: mouth 2 Medic al (CALCIUM- 11 (two) Center TAMIN D) times 500 daily with mg(1,250mg) breakfast -200 unit and per tablet dinner. ergocalcife Yes 1000U QD Take 1,[address] rol, 3-23 Units by [place] vitamin D2, 10:15: mouth Medic al (VITAMIN 11 daily. Center D2) 1,000 unit Cap ascorbic Yes 1000mg QD Take 1,[address] acid, 3-23 mg by [place] vitamin C, 10:15: mouth Medica l (VITAMIN C) 11 daily. Center 1000 MG tablet b complex Yes 1{capsu QD Take [address] vitamins 3-23 le} capsule by [facility] capsule 10:15: mouth Medical 11 daily. [place] cyanocobala Yes 1000ug QD Take 1,[address] min 3-23 mcg by [facility] (VITAMIN 10:15: mouth Medical B-12) 1000 11 daily. Center MCG tablet omega-3 Yes 2g Q.5D Take [address] [address] acid ethyl 3-23 by mouth 2 [facility] es esters 10:15: (two) Medical (LOVAZA) 1 11 times Center gram daily. capsule ofatumumab 2022-0 Yes [facility]ject [facility] (KESIMPTA 3-23 subcutaneo [facility] PEN SUBQ) 10:15: usly every Me dical 11 30 Center (thirty) days. diclofenac Yes 25mg QD Take [address] (VOLTAREN) 3-23 by [facility] 25 MG EC 10:15: daily . Medica l tablet 11 [place] DULoxetine Yes 30mg QD Take 30 mg [...] 10:15: daily. Medic al ER tablet 11 [place] ibuprofen Yes 200mg Take [address] [...] Center 10mg every 12 hours . metoprolol 0 Yes 25mg Take [address] tartrate 3-23 by mouth . [facility] (LOPRESSOR) 10:15: Medica l 25 MG 11 [place] tablet gabapentin 0 Yes 400mg Take [address] (NEURONTIN) 3-23 mg by [facility] 600 MG 10:15: mouth. Medical tablet 11 Center polyethylen 2021-0 Yes 17g Take [address] e glycol 3-23 by mouth [facility] (GLYCOLAX) 10:15: as needed. M edical 17 gram 11 Center packet oxyCODONE 2021-0 Yes 5mg Take [address] [facility] (OXY-IR) 5 3-23 by [facility] mg capsule 10:15: every 4 Medi [facility] 11 (four) Center hours as needed. oxyCODONE 2021-0 2021- No [facility] (ROXICODONE 3-21 05-31 st ) 5 MG 00:00: 00:00 Hospita immediate 00 :00 l release tablet oxyCODONE 2021-0 2021- No [facility] (ROXICODONE 3- 05-31 st ) 5 MG 00:00: 00:00 Hospita immediate 00 :00 l release tablet oxyCODONE 2021-0 2021- No [facility] (ROXICODONE 3- 05-31 st ) 5 MG 00:00: 00:00 [facility]ospita immediate 00 :00 l release tablet oxyCODONE 2021-0 2021- No [facility] (ROXICODONE 3-21 05-31 st ) 5 MG 00:00: 00:00 Hospita immediate 00 :00 l release tablet oxyCODONE 2021-0 2022- No [facility] (ROXICODONE 3- 05-31 st ) 5 MG 00:00: 00:00 Hospita immediate 00 :00 l release tablet oxyCODONE 2021-0 2022- No [facility] (ROXICODONE 3-24 10-31 st ) 5 MG 00:00: 00:00 Hospita immediate 00 :00 l release tablet oxyCODONE 2021-0 2- No [facility] (ROXICODONE 3-21 05-31 st ) 5 MG 00:00: 00:00 [facility]ospita immediate 00 :00 l release tablet oxyCODONE 2021-0 2- No [facility] (ROXICODONE 3-21 05-31 st ) 5 MG 00:00: 00:00 Hospita immediate 00 :00 l release tablet metoprolol 2021-0 2021- No 12.5mg Q.5D Take 12.5 [facility] tartrate 311 03-[address] (LOPRESSOR) 11:33: 00:00 [...] tablet times a day. [place]MAD[place] 2021- [place] [id number] 50mg Q6H Take 1 [facility] (ULTRAM) 50 3-11 03-29 tablet (50 s t mg tablet 00:00: 00:00 mg total) Ho spita 00 :00 by mouth l every 6 (six) hours as needed for moderate pain for up to 30 days .chronic pain. traMADoL 2021- No [id number] 50mg Q6H Take 1 [facility] (ULTRAM) 50 3-11 03-29 tablet (50 s t mg tablet 00:00: 00:00 mg total) [facility]ita 00 :00 by mouth l every 6 (six) hours as needed for moderate pain for up to 30 days .chronic pain. traMADoL 2021- [place] [id number] 50mg Q6H Take 1 [facility] (ULTRAM) 50 3-11 03-29 tablet (50 s t mg tablet 00:00: 00:00 mg total) [facility]ita 00 :00 by mouth l every 6 (six) hours as needed for moderate pain for up to 30 days .chronic pain. traMADoL 2021- [place] [id number] 50mg Q6H Take 1 [facility] (ULTRAM) 50 3-11 03-29 tablet (50 s t mg tablet 00:00: 00:00 mg total) [facility]ita 00 :00 by mouth l every 6 (six) hours as needed for moderate pain for up to 30 days .chronic pain. traMADoL 2021- No [id number] 50mg Q6H Take 1 [facility] (ULTRAM) 50 3-11 03-29 tablet (50 s t mg tablet 00:00: 00:00 mg total) [facility]ita 00 :00 by mouth l every 6 (six) hours as needed for moderate pain for up to 30 days .chronic pain. traMADoL 2021- [place] [id number] 50mg Q6H Take 1 [facility] (ULTRAM) 50 3-11 03-29 tablet (50 s t mg tablet 00:00: 00:00 mg total) [facility]ita 00 :00 by mouth l every 6 (six) hours as needed for moderate pain for up to 30 days .chronic pain. traMADoL 2021- No [id number] 50mg Q6H Take 1 [facility] (ULTRAM) 50 3-11 03-29 tablet (50 s t mg tablet 00:00: 00:00 mg total) Ho spita 00 :00 by mouth l every 6 (six) hours as needed for moderate pain for up to 30 days .chronic pain. traMADoL 50mg Q6H Take 1 [facility] (ULTRAM) 50 08-14 tablet (50 s t mg tablet 00:00: 00:00 mg total) [facility] spita 00 :00 by mouth l every 6 (six) hours as needed for moderate pain for up to 30 days .chronic pain. HYDROcodone 1{tbl} Q8H Take 1 [facility] -acetaminop 3-06 08-[address] [facility] [employer] ([place]) 00:00: 00:00 [facility] 10-325 mg 00 :00 every 8 l per tablet (eight) hours as needed for moderate pain for up to 30 days .chronic pain. Max Daily Amount: 3 tablets HYDROcodone 25 1{tbl} Q8H Take 1 [facility] -acetaminop 3-06 08-[address] [facility] ([place]) 00:00: 00:00 [facility] 10-325 mg 00 :00 every 8 l per tablet (eight) hours as needed for moderate pain for up to 30 days .chronic pain. Max Daily Amount: 3 tablets HYDROcodone 2021-25 1{tbl} Q8H Take 1 [facility] -acetaminop 3-06 08-[address] [facility] ([place]) 00:00: 00:00 [facility] 10-325 mg 00 :00 every 8 l per tablet (eight) hours as needed for moderate pain for up to 30 days .chronic pain. Max Daily Amount: 3 tablets HYDROcodone 2021-0 25 1{tbl} Q8H Take 1 [facility] -acetaminop 3-06 08-[address] [facility] ([place]) 00:00: 00:00 [facility] 10-325 mg 00 :00 every 8 l per tablet (eight) hours as needed for moderate pain for up to 30 days .chronic pain. Max Daily Amount: 3 tablets HYDROcodone 2021-0 No [id number] 1{tbl} Q8H Take 1 [facility] -acetaminop 3-01 -[address] [facility] ([place]) 00:00: 00:00 [facility] 10-325 mg 00 :00 every 8 l per tablet (eight) hours as needed for moderate pain for up to 30 days .chronic pain. Max Daily Amount: 3 tablets HYDROcodone 2021-0 2021- No [id number] 1{tbl} Q8H Take 1 [facility] -acetaminop 3-06 08-[address] [facility] ([place]) 00:00: 00:00 [facility] 10-325 mg 00 :00 every 8 l per tablet (eight) hours as needed for moderate pain for up to 30 days .chronic pain. Max Daily Amount: 3 tablets HYDROcodone 2021-0 2021- No [id number] 1{tbl} Q8H Take 1 [facility] -acetaminop 3-06 08-[address] [facility] ([place]) 00:00: 00:00 [facility] 10-325 mg 00 :00 every 8 l per tablet (eight) hours as needed for moderate pain for up to 30 days .chronic pain. Max Daily Amount: 3 tablets HYDROcodone 2021-0 2021- No [id number] 1{tbl} Q8H Take 1 [facility] -acetaminop 3-06 08-[address] [facility] ([place]) 00:00: 00:00 [facility] 10-325 mg 00 :00 every 8 l per tablet (eight) hours as needed for moderate pain for up to 30 days .chronic pain. Max Daily Amount: 3 tablets traMADoL 2021-0 2021- No [id number] 50mg Q6H Take 1 [facility] (ULTRAM) 50 - 03-10 tablet (50 s t mg tablet 00:00: 00:00 mg total) [facility] 00 :00 by mouth l every 6 (six) hours as needed for moderate pain for up to 30 days .chronic pain. traMADoL 2021-0 2021- [place] [id number] 50mg Q6H Take 1 [facility] (ULTRAM) 50 3- 03-10 tablet (50 s t mg tablet 00:00: 00:00 mg total) [facility] 00 :00 by mouth l every 6 (six) hours as needed for moderate pain for up to 30 days .chronic pain. traMADoL 2021-0 2021- No [id number] 50mg Q6H Take 1 [facility] (ULTRAM) 50 3-01 03-10 tablet (50 s t mg tablet 00:00: 00:00 mg total) [facility] 00 :00 by mouth l every 6 (six) hours as needed for moderate pain for up to 30 days .chronic pain. traM[place] 2021- [place] [id number] 50mg Q6H Take 1 [facility] (ULTRAM) 50 3-01 03-10 tablet (50 s t mg tablet 00:00: 00:00 mg total) [facility]ita 00 :00 by mouth l every 6 (six) hours as needed for moderate pain for up to 30 days .chronic pain. traMADoL 2021- No [id number] 50mg Q6H Take 1 [facility] (ULTRAM) 50 3-01 03-10 tablet (50 s t mg tablet 00:00: 00:00 mg total) [facility] 00 :00 by mouth l every 6 (six) hours as needed for moderate pain for up to 30 days .chronic pain. [place] 2021- [place] [id number] 50mg Q6H Take 1 [facility] (ULTRAM) 50 3-01 03-10 tablet (50 s t mg tablet 00:00: 00:00 mg total) [facility] 00 :00 by mouth l every 6 (six) hours as needed for moderate pain for up to 30 days .chronic pain. traMAD[place] 2021- [place] [id number] 50mg Q6H Take 1 [facility] (ULTRAM) 50 3-01 03-10 tablet (50 s t mg tablet 00:00: 00:00 mg total) [facility] 00 :00 by mouth l every 6 (six) hours as needed for moderate pain for up to 30 days .chronic pain. [place] 2021- [place] [id number] 50mg Q6H Take 1 [facility] (ULTRAM) 50 3-01 03-10 tablet (50 s t mg tablet 00:00: 00:00 mg total) [facility]ita 00 :00 by mouth l every 6 (six) hours as needed for moderate pain for up to 30 days .chronic pain. ondansetron 2021- No 8mg Q8H Take 8 mg [facility] (ZOFRAN) 8 2-28 05-[address] MG tablet 00:00: 00:00 every 8 [facility] 00 :00 (eight) l hours as needed. ondansetron 2021- No 8mg Q8H Take 8 mg [facility] (ZOFRAN) 8 08-03-[address] MG tablet 00:00: 00:00 every 8 [facility] 00 :00 (eight) l hours as needed. ondansetron 2021- No 8mg Q8H Take 8 mg [facility] (ZOFRAN) 8 08-03-[address] MG tablet 00:00: 00:00 every 8 [facility] 00 :00 (eight) l hours as needed. ondansetron 2021-2021- No 8mg Q8H Take 8 mg [facility] (ZOFRAN) 8 08-03-[address] MG tablet 00:00: 00:00 every 8 [facility] 00 :00 (eight) l hours as needed. ondansetron 2021- No 8mg Q8H Take 8 mg [facility] (ZOFRAN) 8 08-03-[address] MG tablet 00:00: 00:00 every 8 [facility] 00 :00 (eight) l hours as needed. ondansetron 2021- No 8mg Q8H Take 8 mg [facility] (ZOFRAN) 8 08-03-[address] MG tablet 00:00: 00:00 every 8 [facility] 00 :00 (eight) l hours as needed. ondansetron 2021- No 8mg Q8H Take 8 mg [facility] (ZOFRAN) 8 08-03-[address] MG tablet 00:00: 00:00 every 8 [facility] 00 :00 (eight) l hours as needed. ondansetron 2021-2021- No 8mg Q8H Take 8 mg [facility] (ZOFRAN) 8 08-03-[address] MG tablet 00:00: 00:00 every 8 [facility] 00 :00 (eight) l hours as needed. Myrbetriq 2021- No 50mg QD Take 50 mg M [...] 00 :00 l release 24 hr venlafaxine 2022-0 Yes 37.5mg QD Take 37.5 [...] 00 daily. l 24 hr capsule venlafaxine 2021-0 Yes 37.5mg QD Take 37.5 [facility] XR 2-[address] (EFFEXOR-XR 00:00: mouth Hospi ta ) 37.5 MG 00 daily. l 24 hr capsule venlafaxine 2021-0 2022- No 37.5mg QD Take 1 M [facility] XR 2-14 -[address] (EFFEXOR-XR 00:00: 00:00 (37.5 mg H ospita ) 37.5 MG 00 :00 total) by l 24 hr mouth capsule daily. venlafaxine 2-0 2022- No 37.5mg QD Take 1 M [facility]i XR 2-14 -[address] (EFFEXOR-XR 00:00: 00:00 (37.5 mg H ospita ) 37.5 MG 00 :00 total) by l 24 hr mouth capsule daily. venlafaxine 2-0 2022- No 37.5mg QD Take 1 M ethodi XR 2-14 -[address] (EFFEXOR-XR 00:00: 00:00 (37.5 mg [...] l dronabinoL 2021- No [facility] (MARINOL) 06-15- st 2.5 MG 00:00: 00:00 Hospita capsule 00 :00 l dronabinoL 2021- No [facility] (MARINOL) 06-15- st 2.5 MG 00:00: 00:00 Hospita capsule 00 :00 l dronabinoL 2021- No [facility] (MARINOL) 06-15- st 2.5 MG 00:00: 00:00 Hospita capsule 00 :00 l dronabinoL 2021- No [facility] (MARINOL) 06-15- st 2.5 MG 00:00: 00:00 Hospita capsule 00 :00 l dronabinoL 2021- No [facility] (MARINOL) 06-15 st 2.5 MG 00:00: 00:00 Hospita capsule 00 :00 l venlafaxine 2020-06 Yes 1{capsu QD Take [address] (EFFEXOR-XR 1-23 le} capsule by [facility] ) 37.5 MG 00:00: mouth Medical 24 hr 00 daily. [place] capsule venlafaxine 2020-06 Yes 1{capsu QD Take [address] (EFFEXOR-XR 1-23 le} capsule by M[facility] mun[facility] ) 37.5 MG 00:00: mouth Medical 24 hr 00 daily. [place] capsule venlafaxine 2020-06 Yes 1{capsu QD Take [address] (EFFEXOR-XR 1-23 le} capsule by [facility] mun[facility] ) 37.5 MG 00:00: mouth Medical 24 hr 00 daily. [place] capsule venlafaxine 2020-06 Yes 1{capsu QD Take [address] (EFFEXOR-XR 1-23 le} capsule by [facility] ) 37.5 MG 00:00: mouth Medical 24 hr 00 daily. [place] capsule venlafaxine 2020-06 Yes 1{capsu QD Take [address] (EFFEXOR-XR 1-23 le} capsule by [facility] ) 37.5 MG 00:00: mouth Medical 24 hr 00 daily. [place] capsule venlafaxine 2020-06 Yes 1{capsu QD Take [address] (EFFEXOR-XR 1-23 le} capsule by [facility] mun[facility] ) 37.5 MG 00:00: mouth Medical 24 hr 00 daily. [place] capsule venlafaxine 2020-06 Yes 1{capsu QD Take [address] (EFFEXOR-XR 1-23 le} capsule by [facility] mun[facility] ) 37.5 MG 00:00: mouth Medical 24 hr 00 daily. [place] capsule venlafaxine 2020-06 Yes 1{capsu QD Take [address] (EFFEXOR-XR 1-23 le} capsule by [facility] mun[facility] ) 37.5 MG 00:00: mouth Medical 24 hr 00 daily. [place] capsule venlafaxine 2020-06 Yes 1{capsu QD Take [address] (EFFEXOR-XR 1-23 le} capsule by [facility] mun[facility] ) 37.5 MG 00:00: mouth Medical 24 hr 00 daily. [place] capsule venlafaxine 2020-06 Yes 1{capsu QD Take [address] (EFFEXOR-XR 1-23 le} capsule by [facility] mun[facility] ) 37.5 MG 00:00: mouth Medical 24 hr 00 daily. [place] capsule venlafaxine 2020-06 Yes 1{capsu QD Take [address] (EFFEXOR-XR 1-23 le} capsule by [facility] ) 37.5 MG 00:00: mouth Medical 24 hr 00 daily. [place] capsule venlafaxine 2020-06 Yes 1{capsu QD Take [address] (EFFEXOR-XR 1-23 le} capsule by [facility] ) 37.5 MG 00:00: mouth Medical 24 hr 00 daily. [place] capsule venlafaxine 2020-06 Yes 1{capsu QD Take [address] (EFFEXOR-XR 1-23 le} capsule by [facility] ) 37.5 MG 00:00: mouth Medical 24 hr 00 daily. [place] capsule venlafaxine 2020-06 Yes 1{capsu QD Take [address] (EFFEXOR-XR 1-23 le} capsule by [facility] ) 37.5 MG 00:00: mouth Medical 24 hr 00 daily. [place] capsule venlafaxine 2020-06 Yes 1{capsu QD Take [address] (EFFEXOR-XR 1-23 le} capsule by [facility] mun[facility] ) 37.5 MG 00:00: mouth Medical 24 hr 00 daily. [place] capsule ondansetron 2020-06 No Route: IV, [facility] (ANES) 1-17 Drug form: l 22:52: INJ, ONCE, Stop date: 04/22/21 16:52:00 CODE NUMBER STAMPER ondansetron 2020-06 No Route: IV, [facility] (ANES) 1 Drug form: l 22:52: INJ, ONCE, Stop date: 04/22/21 16:52:00 CODE NUMBER STAMPER ondansetron 2020-06 No Route: IV, [facility] (ANES) 1-17 Drug form: l 22:52: INJ, ONCE, Stop date: 04/22/21 16:52:00 CODE NUMBER STAMPER phenylephri 2020-06 No Route: IV, Memoria ne (ANES) 1-17 Drug form: l 22:49: INJ, ONCE, Stop date: 04/22/21 16:49:00 CODE NUMBER STAMPER phenylephri 2020-06 No Route: IV, Memoria ne (ANES) 1-17 Drug form: l 22:49: INJ, ONCE, Stop date: 04/22/21 16:49:00 CODE NUMBER STAMPER phenylephri 2020-06 No Route: IV, Memoria ne (ANES) 1- Drug form: l 22:49: INJ, ONCE, Stop date: 04/22/21 16:49:00 CODE NUMBER STAMPER ePHEDrine 2020-06 No Route: IV, Me moria (ANES) 1-17 Drug form: l 22:33: INJ, ONCE, Stop date: 04/22/21 16:33:00 CODE NUMBER STAMPER ePHEDrine 2020-06 No Route: IV, Me [facility] (ANES) 1-17 Drug form: l 22:33: INJ, ONCE, Stop date: 04/22/21 16:33:00 CODE NUMBER STAMPER ePHEDrine 2020-06 No Route: IV, Me [facility]ia (ANES) 1-17 Drug form: l 22:33: INJ, ONCE, Stop date: 04/22/21 16:33:00 CODE NUMBER STAMPER lidocaine 2020-06 No Route: IV, Me [facility]ia (ANES) 1-17 Drug form: l 22:28: INJ, ONCE, Stop date: 04/22/21 16:28:00 CODE NUMBER STAMPER fentaNYL 2020-06 No Route: IV, Mem oria (ANES) 1-17 Drug form: l 22:28: INJ, ONCE, Stop date: 04/22/21 16:28:00 CODE NUMBER STAMPER propofol 2020-06 No Route: IV, Mem oria (ANES) 1-17 Drug form: l 22:28: INJ, ONCE, Stop date: 04/22/21 16:28:00 CODE NUMBER STAMPER famotidine 2020-06 No Route: IV, M emoria (ANES) 1-17 Drug form: l 22:28: INJ, ONCE, Stop date: 04/22/21 16:28:00 CODE NUMBER STAMPER lidocaine 2020-06 No Route: IV, Me moria (ANES) 1-17 Drug form: l 22:28: INJ, ONCE, Stop date: 04/22/21 16:28:00 CODE NUMBER STAMPER fentaNYL 2020-06 No Route: IV, Mem oria (ANES) 1-17 Drug form: l 22:28: INJ, ONCE, Stop date: 04/22/21 16:28:00 CODE NUMBER STAMPER propofol 2020-06 No Route: IV, Mem oria (ANES) 1- Drug form: l 22:28: INJ, ONCE, Stop date: 04/22/21 16:28:00 CODE NUMBER STAMPER famotidine 2020-06 No Route: IV, M emoria (ANES) 1-17 Drug form: l 22:28: INJ, ONCE, Stop date: 04/22/21 16:28:00 CODE NUMBER STAMPER lidocaine 2020-06 No Route: IV, Me moria (ANES) 06-22 Drug form: l 22:28: INJ, ONCE, Stop date: 04/22/21 16:28:00 CODE NUMBER STAMPER fentaNYL 2020-06 No Route: IV, Mem oria (ANES) 1- Drug form: l 22:28: INJ, ONCE, Stop date: 04/22/21 16:28:00 CODE NUMBER STAMPER propofol 2020-06 No Route: IV, Mem oria (ANES) 1-17 Drug form: l 22:28: INJ, ONCE, Stop date: 04/22/21 16:28:00 CODE NUMBER STAMPER famotidine 2020-06 No Route: IV, M emoria (ANES) 1-17 Drug form: l 22:28: INJ, ONCE, Stop date: 04/22/21 16:28:00 CODE NUMBER STAMPER dexamethaso 2020-06 No Route: IV, Memoria ne (ANES) 1-17 Drug form: l 22:23: INJ, ONCE, Stop date: 04/22/21 16:23:00 CODE NUMBER STAMPER dexamethaso 2020-06 No Route: IV, Memoria ne (ANES) 1-17 Drug form: l 22:23: INJ, ONCE, Stop date: 04/22/21 16:23:00 CODE NUMBER STAMPER dexamethaso 2020-06 No Route: IV, Memoria ne (ANES) 1-17 Drug form: l 22:23: INJ, ONCE, [place] 00 Stop date: 04/22/21 16:23:00 CODE NUMBER STAMPER ceFAZolin 2020-06 No Route: IV, Me moria (ANES) 06-22 Drug form: l 22:13: INJ, ONCE, [place] Stop date: 04/22/21 16:13:00 CODE NUMBER STAMPER ceFAZolin 2020-06 No Route: IV, Me moria (ANES) 06-22 Drug form: l 22:13: INJ, ONCE, [place] Stop date: 04/22/21 16:13:00 CODE NUMBER STAMPER ceFAZolin 2020-06 No Route: IV, Me moria (ANES) 06-22 Drug form: l 22:13: INJ, ONCE, Samuel Stop date: 04/22/21 16:13:00 CODE NUMBER STAMPER Sodium 2020-06 No 500 mL, Memoria Chloride 06-22 1500 l 0.9% 21:56: ml/hr, [place] (Bolus) IV 00 Infuse Over: 20 minutes, Route: IV, 500, Drug form: INJ, ONCE, Dosing Weight 64.545 kg, Start date: 04/22/21 15:56:00 CODE NUMBER STAMPER, PRN Hypotensio n, Substitute Allowed Yes, 0.9% NS may be substitute d for LR or other IVF, 0 Hydralazine 2020-06 No Notes: Brien mora 06-22 (Same as: l 21:56: Apresoline [place] 00 ) Push over 5 minutes Ketorolac 2020-06 No 4 days Memor ia 06-22 l 21:56: MEDICATION [place] 00 WASTE Product Size: 30 mg Product Wasted: 15 mg Acetaminoph 2020-06 No Notes: Max Memoria en 06-22 acetaminop l 21:56: hen 4000 [place] 00 mg/day (4 gm/day). (Same as: Tylenol Extra Strength) Oxycodone 2020-06 No Notes: Memori a Hydrochlori 06-22 (Same as: l de 5 MG 21:56: Roxicodone Herm turner Oral Tablet 00 ) Morphine 2020-06 No Notes: Memoria -17 (Same l 21:56: as:MORPhin [place] 00 e Sulfate) Hydromorpho 2020-06 No Notes: Brien mora ne 06-22 Same as l 21:56: Dilaudid Naloxone 2020-06 No Notes: Memoria 06-22 Same as l 21:56: Narcan Albuterol 2020-06 No Notes: SEE Me moria 0.83 MG/ML 06-22 RT l Inhalant 21:56: DOCUMENTAT Her hammer Solution 00 ION (Same as: Proventil) Diphenhydra 2020-06 No Notes: Brien mora mine 06-22 (Same as: l 21:56: Benadryl) Meperidine 2020-06 No Notes: Memor ia 06-22 (Same as: l 21:56: Demerol) "Use Precaution in Elderly, Seizure disorders, and Renal impairment " Ondansetron 2020-06 No Notes: Brien mora 06-22 (Same as: l 21:56: Zofran) MEDICATION WASTE Product Size: 4 mg Product Wasted: ___ mg Promethazin 2020-06 No Notes: Do M emoria e 06-22 not give l 21:56: IV push. (Same as: Phenergan) Methocarbam 2020-06 No Notes: Brien mora ol 06-22 (Same l 21:56: as:Robaxin ) Sodium 2020-06 No 500 mL, [facility] Chloride 06-22 1500 l 0.9% 21:56: ml/hr, [place] (Bolus) IV 00 Infuse Over: 20 minutes, Route: IV, 500, Drug form: INJ, ONCE, Dosing Weight 64.545 kg, Start date: 04/22/21 15:56:00 CODE NUMBER STAMPER, PRN Hypotensio n, Substitute Allowed Yes, 0.9% NS may be substitute d for LR or other IVF, 0 Hydralazine 2020-06 No Notes: Brien mora 06-22 (Same as: l 21:56: Apresoline ) Push over 5 minutes Ketorolac 2020-06 No 4 days Memor ia 06-22 l 21:56: MEDICATION WASTE Product Size: 30 mg Product Wasted: [...] Memoria 06-22 (Same l 21:56: as:MORPhin Samuel 00 e Sulfate) Hydromorpho 2020-06 No Notes: Brien mora ne 06-22 Same as l 21:56: Dilaudid Samuel Naloxone 2020-06 No Notes: Memoria 06-22 Same as l 21:56: Narcan [place] Albuterol 2020-06 No Notes: SEE Me moria 0.83 MG/ML 06-22 RT l Inhalant 21:56: DOCUMENTAT Her hammer Solution 00 ION (Same as: Proventil) Diphenhydra 2020-06 No Notes: Brien mora mine 06-22 (Same as: l 21:56: Benadryl) Samuel Meperidine 2020-06 No Notes: Memor ia 06-22 (Same as: l 21:56: Demerol) Samuel 00 "Use Precaution in Elderly, Seizure disorders, and Renal impairment " Ondansetron 2020-06 No Notes: Brien mora 06-22 (Same as: l 21:56: Zofran) Samuel 00 MEDICATION WASTE Product Size: 4 mg Product Wasted: ___ mg Promethazin 2020-06 No Notes: Do M emoria e 06-22 not give l 21:56: IV push. Samuel 00 (Same as: Phenergan) Methocarbam 2020-06 No Notes: Brien mora ol 06-22 (Same l 21:56: as:Robaxin [place] ) Sodium 2020-06 No 500 mL, [facility] Chloride 06-22 1500 l 0.9% 21:56: ml/hr, Samuel (Bolus) IV 00 Infuse Over: 20 minutes, Route: IV, 500, Drug form: INJ, ONCE, Dosing Weight 64.545 kg, Start date: 04/22/21 15:56:00 CODE NUMBER STAMPER, PRN Hypotensio n, Substitute Allowed Yes, 0.9% NS may be substitute d for LR or other IVF, 0 Hydralazine 2020-06 No Notes: Brien mora 06-22 (Same as: l 21:56: Apresoline [place] 00 ) Push over 5 minutes Ketorolac 2020-06 No 4 days Mem[facility] ia 06-22 l 21:56: MEDICATION [place] WASTE Product Size: 30 mg Product Wasted: 15 mg Acetaminoph 2020-06 No Notes: Max Memoria en 06-22 acetaminop l 21:56: hen 4000 Samuel 00 mg/day (4 gm/day). (Same as: Tylenol Extra Strength) Oxycodone 2020-06 No Notes: Memori a Hydrochlori 06-22 (Same as: l de 5 MG 21:56: Roxicodone Herm turner Oral Tablet ) Morphine 2020-06 No Notes: Memoria 06-22 (Same l 21:56: as:MORPhin [place] 00 e Sulfate) Hydromorpho 2020-06 No Notes: Brien mora ne 06-22 Same as l 21:56: Dilaudid [place] 00 Naloxone 2020-06 No Notes: Memoria 06-22 Same as l 21:56: Narcan [place] 00 Albuterol 2020-06 No Notes: SEE Me moria 0.83 MG/ML 06-22 RT l Inhalant 21:56: DOCUMENTAT Her hammer Solution 00 ION (Same as: Proventil) Diphenhydra 2020-06 No Notes: Brien mora mine 06-22 (Same as: l 21:56: Benadryl) [place] 00 Meperidine 2020-06 No Notes: Memor ia 06-22 (Same as: l 21:56: Demerol) Samuel 00 "Use Precaution in Elderly, Seizure disorders, and Renal impairment " Ondansetron 2020-06 No Notes: Brien mora 06-22 (Same as: l 21:56: Zofran) Samuel 00 MEDICATION WASTE Product Size: 4 mg Product Wasted: ___ mg Promethazin 2020-06 No Notes: Do M emoria e 06-22 not give l 21:56: IV push. Samuel (Same as: Phenergan) Methocarbam 2020-06 No Notes: Brien mora ol 1-17 (Same l 21:56: as:Robaxin Samuel 00 ) Lactated 2020-06 No Route: IV, Mem oria Ringers 1-17 Total l Injection 21:30: Volume: Jodi nn IV (ANES) 00 1,000, 1000 mL Start date: 04/22/21 15:30:00 CODE NUMBER STAMPER, Stop date: 04/22/21 16:30:00 CODE NUMBER STAMPER Lactated 2020-06 No Route: IV, Mem oria Ringers 1-17 Total l Injection 21:30: Volume: Jodi nn IV (ANES) 00 1,000, 1000 mL Start date: 04/22/21 15:30:00 CODE NUMBER STAMPER, Stop date: 04/22/21 16:30:00 CODE NUMBER STAMPER Lactated 2020-06 No Route: IV, Mem oria Ringers 1-17 Total l Injection 21:30: Volume: Jodi nn IV (ANES) 00 1,000, 1000 mL Start date: 04/22/21 15:30:00 CODE NUMBER STAMPER, Stop date: 04/22/21 16:30:00 CODE NUMBER STAMPER Diclofenac 2020-06 Yes 25 mg = 1 [...] PO, l 25 MG 18:19: Daily, # [place] Extended 00 30 tab, 5 Release Refill(s) [...] No One po tid [facility] (Marinol) 06-14 12-[address] 2.5 MG 00:00: 05:59 pain [facility]ospita capsule 00 :00 l dronabinoL 2020-06- No One po tid [facility] (Marinol) 06-14 12-[address] 2.5 MG 00:00: 05:59 pain [facility]osp[facility] capsule 00 :00 l ibuprofen 2020-06- No [id number] 800mg Q8H Take 1 [facility] (ADVIL) 800 [...] (two) times a day. ibuprofen 2020-06- No [id number] 800mg Q8H Take 1 [facility] (ADVIL) 800 [...] (two) times a day. ibuprofen 2020-06- No [id number] 800mg Q8H Take 1 [facility] (ADVIL) 800 [...] (two) times a day. ibuprofen 2020-2021- No [id number] 800mg Q8H Take 1 [facility] (ADVIL) 800 [...] (two) times a day. ibuprofen 2020-2021- No [id number] 800mg Q8H Take 1 [facility] (ADVIL) 800 [...] (two) times a day. ibuprofen 2020-2021- No [id number] 800mg Q8H Take 1 [facility] (ADVIL) 800 [...] (two) times a day. ibuprofen 2020-2021- No [id number] 800mg Q8H Take 1 [facility] (ADVIL) 800 [...] (two) times a day. ibuprofen 2020-06- No [id number] 800mg Q8H Take 1 [facility] (ADVIL) 800 [...] (two) times a day. traMADoL 2020-06- [place] [id number] 100mg Q.72000019 Take 2 [facility] (ULTRAM) 50 0-12 03-[id number] mg tablet 00:00: 00:00 3D (100 mg [facility] 00 :00 total) by l mouth 3 (three) times a day for 60 days .chronic pain. traMADoL 2020-06- [place] [id number] 100mg Q.[id number] Take 2 [facility] (ULTRAM) 50 0-12 03-[id number] mg tablet 00:00: 00:00 3D (100 mg [facility] 00 :00 total) by l mouth 3 (three) times a day for 60 days .chronic pain. traMADoL 2020-06- [place] [id number] 100mg Q.[id number] Take 2 [facility] (ULTRAM) 50 0-12 03-[id number] mg tablet 00:00: 00:00 3D (100 mg [facility] 00 :00 total) by l mouth 3 (three) times a day for 60 days .chronic pain. traMADoL 2020-06- [place] [id number] 100mg Q.[id number] Take 2 [facility] (ULTRAM) 50 0-12 03-[id number] mg tablet 00:00: 00:00 3D (100 mg [facility] 00 :00 total) by l mouth 3 (three) times a day for 60 days .chronic pain. traMADoL 2020-06- [place] [id number] 100mg Q.[id number] Take 2 [facility] (ULTRAM) 50 0-12 03-[id number] mg tablet 00:00: 00:00 3D (100 mg [facility] 00 :00 total) by l mouth 3 (three) times a day for 60 days .chronic pain. traMADoL 2020-06- [place] [id number] 100mg Q.81331203 Take 2 [facility] (ULTRAM) 50 0-12 03-[id number] mg tablet 00:00: 00:00 3D (100 mg [facility] 00 :00 total) by l mouth 3 (three) times a day for 60 days .chronic pain. traMADoL 2020-06- [place] [id number] 100mg Q.[id number] Take 2 [facility] (ULTRAM) 50 0-12 03-[id number] mg tablet 00:00: 00:00 3D (100 mg [facility] 00 :00 total) by l mouth 3 (three) times a day for 60 days .chronic pain. traMADoL 2020-[place]- [place] [id number] 100mg Q.[id number] Take 2 [facility] (ULTRAM) 50 0-12 03-[id number] mg tablet 00:00: 00:00 3D (100 mg [facility] 00 :00 total) by l mouth 3 (three) times a day for 60 days .chronic pain. dronabinoL 2020-06- No [id number] 5mg Q.5D Take 2 [facility] (Marinol) 0-12 11-[address] 2.5 MG 00:00: 05:59 (5 mg [facility]ospita capsule 00 :00 total) by l mouth 2 (two) times a day before meals for 30 days. dronabinoL 2020-06- No [id number] 5mg Q.5D Take 2 [facility] (Marinol) 0-12 11-[address] 2.5 MG 00:00: 05:59 (5 mg [facility]osp[facility] capsule 00 :00 total) by l mouth 2 (two) times a day before meals for 30 days. dronabinoL 2020-06- No [id number] 5mg Q.5D Take 2 [facility] (Marinol) 0-12 11-[address] 2.5 MG 00:00: 05:59 (5 mg [facility]osp[facility] capsule 00 :00 total) by l mouth 2 (two) times a day before meals for 30 days. dronabinoL 2020-06- No [id number] 5mg Q.5D Take 2 [facility] (Marinol) 0-12 11-[address] 2.5 MG 00:00: 05:59 (5 mg [facility]osp[facility] capsule 00 :00 total) by l mouth 2 (two) times a day before meals for 30 days. dronabinoL 2020-06- No [id number] 5mg Q.5D Take 2 [facility] (Marinol) 0-12 11-[address] 2.5 MG 00:00: 05:59 (5 mg [facility]osp[facility] capsule 00 :00 total) by l mouth 2 (two) times a day before meals for 30 days. dronabinoL 2020-06- No [id number] 5mg Q.5D Take 2 [facility] (Marinol) 0-12 [...] l 24 hr mouth tablet daily. diclofenac 2020-2021- No 100mg QD Take 1 [facility] sodium 930 -[address] (VOTAREN 00:00: 00:00 (100 mg Hospi ta XR) 100 mg 00 :00 total) by l 24 hr mouth tablet daily. diclofenac 2020-2021- No 100mg QD Take 1 [facility] sodium 930 -[address] (VOTAREN 00:00: 00:00 (100 mg Hospi ta XR) 100 mg 00 :00 total) by l 24 hr mouth tablet daily. diclofenac 2020-2021- No 100mg QD Take 1 [facility] sodium 30 -[address] (VOTAREN 00:00: 00:00 (100 mg Hospi ta XR) 100 mg 00 :00 total) by l 24 hr mouth tablet daily. diclofenac 2020-2021- No 100mg QD Take 1 [facility] sodium 03-05-[address] (VOTAREN 00:00: 00:00 (100 mg Hospi ta XR) 100 mg 00 :00 total) by l 24 hr mouth tablet daily. diclofenac 2020-2021- No 100mg QD Take 1 [facility] sodium 03-05-[address] (VOTAREN 00:00: 00:00 (100 mg Hospi ta XR) 100 mg 00 :00 total) by l 24 hr mouth tablet daily. diclofenac 2020-2021- No 100mg QD Take 1 [facility] sodium 03-05-[address] (VOTAREN 00:00: 00:00 (100 mg Hospi ta XR) 100 mg 00 :00 total) by l 24 hr mouth tablet daily. diclofenac 2020-2021- No 100mg QD Take 1 [facility] sodium 30 -[address] (VOTAREN 00:00: 00:00 (100 mg Hospi ta XR) 100 mg 00 :00 total) by l 24 hr mouth tablet daily. traMADoL 2020- No [id number] 100mg Q.89235135 Take 2 [facility] (ULTRAM) 50 9-20 10-[id number] mg tablet 00:00: 00:00 3D [...] (LIDEX) 09-[address] 0.05 % 00:00: 04:59 2 (two) Hospita external 00 :00 times [...] e (LIDEX) 09-24- topically st 0.05 % 00:00: 04:59 2 (two) [facility]ospita external 00 :00 times a l solution day. fluocinonid 2021- No Q.5D Apply [facility] e (LIDEX) 09-[address] 0.05 % 00:00: 04:59 2 (two) [facility]ospita external 00 :00 times [...] solution 00 :00 times Center daily. fluocinonid 2020-2021- No Q.5D Apply [facility] (LIDEX) 09-24-21 topically [facility] 0.05 % 00:00: 23:59 2 (two) Medical solution 00 :00 times Center daily. fluocinonid 2020-2021- No Q.5D Apply [facility] (LIDEX) 09-24-21 topically [facility] 0.05 % 00:00: 23:59 2 (two) Medical solution 00 :00 times Center daily. DULoxetine 2- No 60mg QD Take 1 [facility] (Cymbalta) 318 -[address] 60 MG 00:00: 00:00 (60 mg [facility]osp[facility] capsule 00 :00 total) by l mouth daily. DULoxetine 2020-2- No 60mg QD Take 1 [facility] (Cymbalta) 318 -[address] 60 MG 00:00: 00:00 (60 mg [facility]osp[facility] capsule 00 :00 total) by l mouth daily. DULoxetine 2020- 2022- No 60mg QD Take 1 [facility] c[facility]il (Cymbalta) 318 03-[address] 60 MG 00:00: 00:00 (60 mg [facility]ospita capsule 00 :00 total) by l mouth daily. DULoxetine 2020-2- No 60mg QD Take 1 Meth cecil (Cymbalta) 318 03-[address] 60 MG 00:00: 00:00 (60 mg [facility]ospita capsule 00 :00 total) by l mouth daily. DULoxetine 2020- 2022- No 60mg QD Take 1 [facility] (Cymbalta) 3-18 03-[address] 60 MG 00:00: 00:00 (60 mg [facility]osp[facility] capsule 00 :00 total) by l mouth daily. DULoxetine 2020-0 2022- No 60mg QD Take 1 [facility] (Cymbalta) 3-18 03-[address] 60 MG 00:00: 00:00 (60 mg [facility]osp[facility] capsule 00 :00 total) by l mouth daily. DULoxetine 2020-0 2022- No 60mg QD Take 1 Meth c[facility] (Cymbalta) 3-18 03-[address] 60 MG 00:00: 00:00 (60 mg [facility]ospita capsule 00 :00 total) by l mouth daily. DULoxetine 2021- No 60mg QD Take 1 [facility] c[facility] (Cymbalta) 08-[address] 60 MG 00:00: 00:00 (60 mg [facility]osp[facility] capsule 00 :00 total) by l mouth daily. naloxegoL 2019-06 No [id number] 25mg QD Take 1 [facility] (Movantik) 07-27 9102 tablet (25 st 25 mg 00:00: 00:00 mg total) Hospit a tablet 00 :00 by mouth l tablet daily before breakfast. naloxegoL 2019-06 No [id number] 25mg QD Take 1 [facility] (Movantik) 07-27 9102 tablet (25 st 25 mg 00:00: 00:00 mg total) Hospit a tablet 00 :00 by mouth l tablet daily before breakfast. naloxegoL 2019-06 No [id number] 25mg QD Take 1 [facility] (Movantik) 07-27 9102 tablet (25 st 25 mg 00:00: 00:00 mg total) Hospit a tablet 00 :00 by mouth l tablet daily before breakfast. naloxegoL 2019-06 No [id number] 25mg QD Take 1 [facility] (Movantik) 07-27 9102 tablet (25 st 25 mg 00:00: 00:00 mg total) Hospit a tablet 00 :00 by mouth l tablet daily before breakfast. naloxegoL 2019-06 No [id number] 25mg QD Take 1 [facility] (Movantik) 07-27 9102 tablet (25 st 25 mg 00:00: 00:00 mg total) Hospit a tablet 00 :00 by mouth l tablet daily before breakfast. naloxegoL 2019-06 No [id number] 25mg QD Take 1 [facility] (Movantik) 07-27 9102 tablet (25 st 25 mg 00:00: 00:00 mg total) Hospit a tablet 00 :00 by mouth l tablet daily before breakfast. naloxegoL 2019-06 No [id number] 25mg QD Take 1 [facility] (Movantik) 07-27 9102 tablet (25 st 25 mg 00:00: 00:00 mg total) Hospit a tablet 00 :00 by mouth l tablet daily before breakfast. naloxegoL 2019-06 [id number] 25mg QD Take 1 [facility] (Movantik) 07-27 9102 tablet (25 st 25 mg 00:00: 00:00 mg total) Hospit a tablet 00 :00 by mouth l tablet daily before breakfast. ibuprofen 2019-06 800mg Q8H Take 1 [facility] (ADVIL) 800 07-27-[address] MG tablet 00:00: 00:00 (800 mg [facility] 00 :00 total) by l mouth every 8 (eight) hours as needed for mild pain. metoprolol 2019-06 25mg QD Take 1 [facility] succinate 0-06 14-30 tablet (25 st XL 00:00: 00:00 mg total) Hospita (TOPROL-XL) 00 :00 by mouth l 25 mg 24 hr daily. tablet metoprolol 2019-06 25mg QD Take 1 [facility] succinate 0-06 14-30 tablet (25 st XL 00:00: 00:00 mg total) Hospita (TOPROL-XL) 00 :00 by mouth l 25 mg 24 hr daily. tablet metoprolol 2019-06 25mg QD Take 1 [facility] succinate [...] 25mg QD Take 1 [facility] succinate 0-30 tablet (25 st XL 00:00: 00:00 mg [...] daily. tablet naloxone Yes 1 spray in [facility] hodi (Narcan) 4 - one st mg/actuatio 00:00: nostril/ma Hospita n 00 y repeat l spray,non-a every 2-3 erosol minutes in alternatin g nostrils until medical assistance becomes available naloxone 2019-0 Yes 1 spray in [facility] hodi (Narcan) 4 - one st mg/actuatio 00:00: nostril/ma Hospita n 00 y repeat l spray,non-a every 2-3 erosol minutes in alternatin g nostrils until medical assistance becomes available naloxone 2019-0 Yes 1 spray in [facility] (Narcan) 4 - one st mg/actuatio 00:00: nostril/ma Hospita n 00 y repeat l spray,non-a every 2-3 erosol minutes in alternatin g nostrils until medical assistance becomes available naloxone 2020-0 Yes 1 spray in [facility] (Narcan) 4 - one st mg/actuatio 00:00: nostril/ma Hospita n 00 y repeat l spray,non-a every 2-3 erosol minutes in alternatin g nostrils until medical assistance becomes available naloxone 2020-0 Yes 1 spray in [facility] (Narcan) 4 - one st mg/actuatio 00:00: nostril/ma Hospita n 00 y repeat l spray,non-a every 2-3 erosol minutes in alternatin g nostrils until medical assistance becomes available naloxone 2020-0 Yes 1 spray in [facility] (Narcan) 4 - one st mg/actuatio 00:00: nostril/ma Hospita n 00 y repeat l spray,non-a every 2-3 erosol minutes in alternatin g nostrils until medical assistance becomes available naloxone 2020-0 Yes 1 spray in [facility] (Narcan) 4 09-[address] mg/actuatio 00:00: nostril/ma Hospita n 00 y repeat l spray,non-a every 2-3 erosol minutes in alternatin g nostrils until medical assistance becomes available naloxone 2020-0 Yes 1 spray in [facility] (Narcan) 4 09-[address] mg/actuatio 00:00: nostril/ma Hospita n 00 y repeat l spray,non-a every 2-3 erosol minutes in alternatin g nostrils until medical assistance becomes available naloxone 2020-0 2023- No 1 spray in [facility] (Narcan) 4 09-12- one st mg/actuatio 00:00: 00:00 nostril/ma Hospita n 00 :00 y repeat l spray,non-a every 2-3 erosol minutes in alternatin g nostrils until medical assistance becomes available naloxone 2020-0 2023- No 1 spray in [facility] (Narcan) 4 09-12- one st mg/actuatio 00:00: 00:00 nostril/ma Hospita n 00 :00 y repeat l spray,non-a every 2-3 erosol minutes in alternatin g nostrils until medical assistance becomes available naloxone 2022- No 1 spray in [facility] (Narcan) 4 09-12- one st mg/actuatio 00:00: 00:00 nostril/ma Hospita n 00 :00 y repeat l spray,non-a every 2-3 erosol minutes in alternatin g nostrils until medical assistance becomes available meclizine 2021- No TAKE 1 [facility] (ANTIVERT) 6-20 04-[address] 25 mg 00:00: 00:00 [...] No TAKE 1 [facility] (ANTIVERT) 6-20 04-[address] 25 mg 00:00: 00:00 MOUTH Hospita tablet 00 :00 THREE l TIMES DAILY NEEDED FOR DIZZINESS meclizine 2021- No TAKE 1 [facility] (ANTIVERT) 6-20 04-[address] 25 mg 00:00: 00:00 MOUTH [facility]ospita tablet 00 :00 THREE l TIMES DAILY NEEDED FOR DIZZINESS meclizine 2021- No TAKE 1 [facility] (ANTIVERT) 6-20 04-[address] 25 mg 00:00: 00:00 MOUTH Hospita tablet 00 :00 THREE l TIMES DAILY NEEDED FOR DIZZINESS meclizine 2021- No TAKE 1 [facility] (ANTIVERT) 6-20 04-[address] 25 mg 00:00: 00:00 MOUTH [facility]ospita tablet 00 :00 THREE l TIMES DAILY NEEDED FOR DIZZINESS meclizine 2021- No TAKE 1 [facility] (ANTIVERT) 6-20 04-[address] 25 mg 00:00: 00:00 MOUTH Hospita tablet 00 :00 THREE l TIMES DAILY NEEDED FOR DIZZINESS tramadol Yes TK 1 T PO Brien mora hydrochlori 2-26 Q 6 H PRN l de 50 MG 20:24: FOR [place] Oral Tablet 00 MODERATE PAIN hydromorpho Yes TK 1 T PO M emoria ne 2 mg 2-26 TID PRF l oral tablet 20:24: BREAKTHROU Samuel 00 GH PAIN Acetaminoph Yes TK 1 TO 2 M emoria en 325 MG / 2-26 TS PO Q 8 l Hydrocodone 20:24: H PRN P Her hammer Bitartrate 00 10 MG Oral Tablet tramadol Yes TK 1 T PO Brien mora hydrochlori 2-26 Q 6 H PRN l de 50 MG 20:24: FOR [place] Oral Tablet MODERATE PAIN hydromorpho Yes TK 1 T PO M emoria ne 2 mg 2-26 TID PRF l oral tablet 20:24: BREAKTHROU GH PAIN Acetaminoph Yes TK 1 TO 2 M emoria en 325 MG / 2-26 TS PO Q 8 l Hydrocodone 20:24: H PRN P Her hammer Bitartrate 00 10 MG Oral Tablet tramadol 2018- Yes TK 1 T PO Brien mora hydrochlori 2-26 Q 6 H PRN l de 50 MG 20:24: FOR Samuel Oral Tablet MODERATE PAIN hydromorpho Yes TK 1 T PO M emoria ne 2 mg 2-26 TID PRF l oral tablet 20:24: BREAKTHROU Samuel 00 GH PAIN Acetaminoph Yes TK 1 TO 2 M emoria en 325 MG / 2-26 TS PO Q 8 l Hydrocodone 20:24: H PRN P Her hammer Bitartrate 00 10 MG Oral Tablet pregabalin Yes 25 mg = 1 Me moria 25 MG Oral 2-26 cap, PO, l Capsule 20:23: Daily, # Manny n [Lyrica] 00 30 cap, 0 Refill(s) pregabalin 2018- Yes 25 mg = 1 Me moria [...] l mg/gram week. vaginal Tuesday cream conjugated 2017-06 No .5g Q7D Insert 0.5 [facility] estrogens 0-01 03-[address] (PREMARIN) 00:00: 00:00 vagina [facility] 0.625 00 :00 once a l mg/gram week. vaginal Tuesday cream conjugated 2017-06 No .5g Q7D Insert 0.5 [facility] estrogens 0-01 03-[address] (PREMARIN) 00:00: 00:00 vagina [facility] 0.625 00 :00 once a l mg/gram week. vaginal Tuesday cream conjugated 2017-06 No .5g Q7D Insert 0.5 [facility] estrogens 0-01 03-[address] (PREMARIN) 00:00: 00:00 vagina [facility] 0.625 00 :00 once a l mg/gram week. vaginal Tuesday cream conjugated 2017-06 No .5g Q7D Insert 0.5 [facility] estrogens 0-01 03-[address] (PREMARIN) 00:00: 00:00 vagina [facility] 0.625 00 :00 once a l mg/gram week. vaginal Tuesday cream conjugated 2017-06- No .5g Q7D Insert 0.5 [facility] estrogens 0-01 03-[address] (PREMARIN) 00:00: 00:00 vagina [facility] 0.625 00 :00 once a l mg/gram week. vaginal Tuesday cream conjugated 2017-06 No .5g Q7D Insert 0.5 [facility] estrogens 0-01 03-[address] (PREMARIN) 00:00: 00:00 vagina [facility] 0.625 00 :00 once a l mg/gram week. vaginal Tuesday cream conjugated 2017-06- No .5g Q7D Insert 0.5 [facility] estrogens 03-[address] (PREMARIN) 00:00: 00:00 vagina [facility] 0.625 00 :00 once a l mg/gram week. vaginal Tuesday cream Lactated 2017-0 No 1,000 mL, Brien mora Ringers IV 02-20 Rate: 40 l 1,000 mL 17:28: ml/hr, [place] 00 Infuse over: 25 hr, Route: IV, [...] Rate: 40 l 1,000 mL 17:28: ml/hr, [place] 00 Infuse over: 25 hr, Route: IV, [...] tab, 0 Refill(s) baclofen 2018-0 Yes 30mg Q.[id number] Take 3 M [facility] (LIORESAL) 6-[id number] 10 MG 00:00: 3D (30 mg Hospita tablet 00 total) by l mouth 3 (three) times a day. baclofen 2018-0 Yes 30mg Q.[id number] Take 3 M [facility]i (LIORESAL) 6-[id number] 10 MG 00:00: 3D (30 mg Hospita tablet 00 total) by l mouth 3 (three) times a day. baclofen 2018-0 Yes 30mg Q.[id number] Take 3 M [facility]i (LIORESAL) 6-[id number] 10 MG 00:00: 3D (30 mg Hospita tablet 00 total) by l mouth 3 (three) times a day. baclofen 2018-0 Yes 30mg Q.[id number] Take 3 M [facility]i (LIORESAL) 6-[id number] 10 MG 00:00: 3D (30 mg Hospita tablet 00 total) by l mouth 3 (three) times a day. baclofen 2018-0 Yes 30mg Q.[id number] Take 3 M [facility] (LIORESAL) 6-[id number] 10 MG 00:00: 3D (30 mg Hospita tablet 00 total) by l mouth 3 (three) times a day. baclofen 2018-0 Yes 30mg Q.[id number] Take 3 M [facility] (LIORESAL) 6-[id number] 10 MG 00:00: 3D (30 mg Hospita tablet 00 total) by l mouth 3 (three) times a day. baclofen 2018-0 Yes 30mg Q.[id number] Take 3 M [facility] (LIORESAL) 6-[id number] 10 MG 00:00: 3D (30 mg Hospita tablet 00 total) by l mouth 3 (three) times a day. baclofen 2018-0 Yes 30mg Q.[id number] Take 3 M [facility] (LIORESAL) 6-[id number] 10 MG 00:00: 3D (30 mg Hospita tablet 00 total) by l mouth 3 (three) times a day. baclofen 2018-0 Yes 30mg Q.[id number] Take 3 M [facility]i (LIORESAL) 6-[id number] 10 MG 00:00: 3D (30 mg Hospita tablet 00 total) by l mouth 3 (three) times a day. baclofen 2018-0 Yes 30mg Q.[id number] Take 3 M [facility]i (LIORESAL) 6-[id number] 10 MG 00:00: 3D (30 mg Hospita tablet 00 total) by l mouth 3 (three) times a day. baclofen 2018-0 Yes 30mg Q.[id number] Take 3 M [facility] (LIORESAL) 6-[id number] 10 MG 00:00: 3D (30 [...] Type 6-06 Route: IM, l A 21:00: ONCALLAlvaWeatherly 00 Dosing Weight 64.545, kg, Start date: 11/09/17 16:00:00 CDT, Duration: 30 day, Stop date: 12/09/17 15:59:00 CDT Baclofen 2018-0 Yes PO, TID, Memor ia 6-06 30mg TID, l 18:08: 0 Samuel 00 Refill(s) Baclofen 2018-0 Yes PO, TID, Memor ia 6-06 30mg TID, l 18:08: 0 [place] 00 Refill(s) Baclofen 2018-0 Yes PO, TID, Memor ia 6-06 30mg TID, l 18:08: 0 Samuel 00 Refill(s) duloxetine 0 Yes 30 mg = 1 Me moria 30 MG 5-02 cap, PO, l Enteric 14:19: Daily, 0 Manny n Coated 00 Refill(s) Capsule [Cymbalta] duloxetine Yes 30 mg = 1 Me moria 30 MG 5-02 cap, PO, l Enteric 14:19: Daily, 0 Manny n Coated 00 Refill(s) Capsule [Cymbalta] duloxetine Yes 30 mg = 1 Me moria 30 MG 5-02 cap, PO, l Enteric 14:19: Daily, 0 Manny n Coated 00 Refill(s) Capsule [Cymbalta] Lyrica 25 Lyrica 25 2016-06 Yes Q0.5D TAKE 1 UT MG Oral MG Oral 2-21 CAPSULE Physic i Capsule Capsule 00:00: TWICE ans 00 DAILY. Botulinum 2016-06 No 600 unit, Mem oria Toxin Type 2-06 Route: IM, l A 18:00: Samuel GALVAN Dosing Weight 65, kg, Start date: 05/11/17 12:00:00 CODE NUMBER STAMPER, Duration: 30 day, Stop date: 06/10/17 11:59:00 CODE NUMBER STAMPER Botulinum 2016- No 600 unit, Mem oria Toxin Type 2-06 Route: IM, l A 18:00: Samuel GALVAN Dosing Weight 65, kg, Start date: 05/11/17 12:00:00 CODE NUMBER STAMPER, Duration: 30 day, Stop date: 06/10/17 11:59:00 CODE NUMBER STAMPER Botulinum 2016- No 600 unit, Mem oria Toxin Type 2-06 Route: IM, l A 18:00: Samuel GALVAN Dosing Weight 65, kg, Start date: 05/11/17 12:00:00 CODE NUMBER STAMPER, Duration: 30 day, Stop date: 06/10/17 11:59:00 CODE NUMBER STAMPER pregabalin 2016-06 Yes 25 mg = 1 [...] 22:05: Xylocaine) Samuel e-free 00 injectable solution lidocaine 2016-06 No Notes: Memori a 1% 0-05 (Same as: l preservativ 22:05: Xylocaine) Samuel e-free 00 injectable solution lidocaine 2016-06 No Notes: Memori a 1% 0-05 (Same as: l preservativ 22:05: Xylocaine) [place] e-free 00 injectable solution hyaluronan 2016-06 No Notes: Memor ia 0-05 Same as: l 20:00: Hymovis Samuel hyaluronan 2016-06 No Notes: Memor ia 0-05 Same as: l 20:00: Hymovis [place] hyaluronan 2016-06 No Notes: Memor ia 0-05 Same as: l 20:00: Hymovis Samuel Botulinum No 500 unit, Mem oria Toxin Type 9- Route: IM, l A 17:00: Samuel GALVAN Dosing Weight 65.909, kg, Start date: 02/09/17 12:00:00 CDT, Duration: 30 day, Stop date: 03/11/17 11:59:00 CDT Botulinum No 500 unit, Mem oria Toxin [...] Stop date: 03/11/17 11:59:00 CDT Ocrevus 300 2016- Yes 600 mg, Mem oria mg/10 mL 9-06 IV, q6mo, l intravenous 15:50: 0 Manny n solution 00 Refill(s) Ocrevus 300 2016- Yes 600 mg, Mem oria mg/10 mL 9-06 IV, q6mo, l intravenous 15:50: 0 Manny n solution 00 Refill(s) Ocrevus 300 2016-0 Yes 600 mg, Mem oria mg/10 mL 9-06 IV, q6mo, l intravenous 15:50: 0 Manny n solution 00 Refill(s) baclofen 10 Yes 10 mg = 1 M emoria mg oral 9-06 tab, PO, l tablet 15:48: TID, 0 [place] 00 Refill(s) baclofen 10 Yes 10 mg = 1 M emoria mg oral 9-06 tab, PO, l tablet 15:48: TID, 0 Samuel 00 Refill(s) baclofen 10 Yes 10 mg = 1 M emoria mg oral 9-06 tab, PO, l tablet 15:48: TID, 0 [place] 00 Refill(s) 24 HR Yes 37.5 mg = Memoria venlafaxine 7-12 1 cap, PO, l 37.5 MG 21:38: Daily, # Manny n Extended 00 30 cap, 3 Release Refill(s), Capsule Pharmacy: [Effexor] [facility] #[id number] celecoxib Yes 100 mg = 1 Me moria 100 MG Oral 7-12 cap, PO, l Capsule 21:38: BID, # 28 Jodi nn [Celebrex] 00 cap, 0 Refill(s), Pharmacy: [facility] #[id number] 24 HR Yes 37.5 mg = Memoria venlafaxine 7-12 1 cap, PO, l 37.5 MG 21:38: Daily, # Manny n Extended 00 30 cap, 3 Release Refill(s), Capsule Pharmacy: [Effexor] [facility] #[id number] celecoxib 2017- Yes 100 mg = 1 Me moria 100 MG Oral 7-12 cap, PO, l Capsule 21:38: BID, # 28 Jodi nn [Celebrex] 00 cap, 0 Refill(s), Pharmacy: [facility] #[id number] 24 HR Yes 37.5 mg = Memoria venlafaxine 7-12 1 cap, PO, l 37.5 MG 21:38: Daily, # Manny n Extended 00 30 cap, 3 Release Refill(s), Capsule Pharmacy: [Effexor] [facility] #[id number] celecoxib 2016- Yes 100 mg = 1 Me moria 100 MG Oral 7-12 cap, PO, l Capsule 21:38: BID, # 28 Jodi nn [Celebrex] 00 cap, 0 Refill(s), Pharmacy: [facility] #[id number] duloxetine Yes 30 mg = 1 Me moria 30 MG 6-07 cap, PO, l Enteric 14:37: Daily, # Manny n Coated 57 30 cap, 2 Capsule Refill(s), [Cymbalta] Pharmacy: [facility] #[id number] duloxetine Yes 30 mg = 1 Me moria 30 MG 6-07 cap, PO, l Enteric 14:37: Daily, # Manny n Coated 57 30 cap, 2 Capsule Refill(s), [Cymbalta] Pharmacy: [facility] #[id number] duloxetine Yes 30 mg = 1 Me moria 30 MG 6-07 cap, PO, l Enteric 14:37: Daily, # Manny n Coated 57 30 cap, 2 Capsule Refill(s), [Cymbalta] Pharmacy: [facility] #[id number] Botulinum 2016-0 No 400 unit, Mem oria Toxin Type 5-25 Route: IM, l A 22:00: ONCALLSamuel Dosing Weight 64.545, kg, Start date: 10/28/16 17:00:00 CDT, Duration: 30 day, Stop date: 11/27/16 16:59:00 CDT Botulinum 2017-0 No 400 unit, Mem oria Toxin Type 5-25 Route: IM, l A 22:00: ONCALLSamuel Dosing Weight 64.545, kg, Start date: 10/28/16 17:00:00 CDT, Duration: 30 day, Stop date: 11/27/16 16:59:00 CDT Botulinum 2017-0 No 400 unit, Mem oria Toxin Type 5-25 Route: IM, l A 22:00: ONCALLSamuel Dosing Weight 64.545, kg, Start date: 10/28/16 17:00:00 CDT, Duration: 30 day, Stop date: 11/27/16 16:59:00 CDT duloxetine Yes 30 mg = 1 Me moria 30 MG 5-11 cap, PO, l Enteric 21:50: Daily, # Manny n Coated 00 30 cap, 1 Capsule Refill(s), [Cymbalta] Pharmacy: [facility] #[id number] duloxetine Yes 30 mg = 1 Me moria 30 MG 5-11 cap, PO, l Enteric 21:50: Daily, # Manny n Coated 00 30 cap, 1 Capsule Refill(s), [Cymbalta] Pharmacy: [facility] #[id number] duloxetine Yes 30 mg = 1 Me moria 30 MG 5-11 cap, PO, l Enteric 21:50: Daily, # Manny n Coated 00 30 cap, 1 Capsule Refill(s), [Cymbalta] Pharmacy: [facility] #[id number] lidocaine Yes Notes: Memori a 1% 5-05 (Same as: l preservativ 23:06: Xylocaine) [place] e-free injectable solution lidocaine Yes Notes: Memori a 1% 5-05 (Same as: l preservativ 23:06: Xylocaine) Samuel e-free injectable solution lidocaine Yes Notes: Memori a 1% 5-05 (Same as: l preservativ 23:06: Xylocaine) [place] e-free 00 injectable solution tizanidine 2017-0 Yes 2 mg = 1 Mem oria 2 mg oral 4-12 tab, PO, l tablet 19:37: TID, PRN [place] 17 for muscle spasm, # 90 tab, 2 Refill(s), Pharmacy: [facility] #[id number] tizanidine 2017-0 Yes 2 mg = 1 Mem oria 2 mg oral 4-12 tab, PO, l tablet 19:37: TID, PRN [place] 17 for muscle spasm, # 90 tab, 2 Refill(s), Pharmacy: [facility] #[id number] tizanidine 2017-0 Yes 2 mg = 1 Mem oria 2 mg oral 4-12 tab, PO, l tablet 19:37: TID, PRN Samuel 17 for muscle spasm, # 90 tab, 2 Refill(s), Pharmacy: [facility] #[id number] tramadol 2017-0 Yes 100 mg = 2 [...] 1-26 (Same as: l preservativ 21:13: Xylocaine) Samuel e-free injectable solution lidocaine Yes Notes: Memori a 1% 1-26 (Same as: l preservativ 21:13: Xylocaine) Samuel e-free injectable solution lidocaine Yes Notes: Memori a 1% 1-26 (Same as: l preservativ 21:13: Xylocaine) Samuel e-free injectable solution Kenalog-40 No Notes: Memor ia -06 (Same As: l 22:00: Kenalog-40 [place] ) MEDICATION WASTE Product Size: 40 mg Product Wasted: ___ mg lidocaine No Notes: Memori a 1-06 (Same as: l 22:00: Xylocaine) Kenalog-40 No Notes: Memor ia 1-06 (Same As: l 22:00: Kenalog-40 [place] ) MEDICATION WASTE Product Size: 40 mg Product Wasted: ___ mg lidocaine No Notes: Memori a 1-06 (Same as: l 22:00: Xylocaine) Kenalog-40 No Notes: Memor ia -06 (Same As: l 22:00: Kenalog-40 Samuel ) MEDICATION WASTE Product Size: 40 mg Product Wasted: ___ mg lidocaine No Notes: Memori a 1-06 (Same as: l 22:00: Xylocaine) Botulinum 2015- No 450 unit, Mem oria Toxin Type 2-28 Route: IM, l A 22:00: ONCALLAlvaWeatherly 00 Dosing Weight 63.636, kg, Start date: 06/02/16 16:00:00 CODE NUMBER STAMPER, Duration: 30 day, Stop date: 07/02/16 15:59:00 CODE NUMBER STAMPER Botulinum 2015- No 450 unit, Mem oria Toxin Type 2-28 Route: IM, l A 22:00: ONCALL Dosing Weight 63.636, kg, Start date: 06/02/16 16:00:00 CODE NUMBER STAMPER, Duration: 30 day, Stop date: 07/02/16 15:59:00 CODE NUMBER STAMPER Botulinum 2015- No 450 unit, Mem oria Toxin Type 2-28 Route: IM, l A 22:00: ONCALL Dosing Weight 63.636, kg, Start date: 06/02/16 16:00:00 CODE NUMBER STAMPER, Duration: 30 day, Stop date: 07/02/16 15:59:00 CODE NUMBER STAMPER tramadol 2015-06 Yes 50 mg = 1 [...] tramadol 2015-06 Yes 50 mg = 1 Brine mora hydrochlori 2-15 tab, PO, l de [...] Q4-6H, PRN l 19:47: Pain, # 20 Samuel 00 tab, 0 Refill(s) tramadol 2015-06 Yes 100 mg = 2 Mem oria hydrochlori 0-31 tab, PO, l de 50 MG 19:47: Daily, 0 Jodi nn Oral Tablet 00 Refill(s) Tramadol 2015-06 No 50 mg, PO, Mem oria 0-31 Q4-6H, PRN l 19:47: Pain, # 20 [place] 00 tab, 0 Refill(s) tramadol 2015-06 Yes 100 mg = 2 Mem oria hydrochlori 0-31 tab, PO, l de 50 MG 19:47: Daily, 0 Jodi nn Oral Tablet 00 Refill(s) Tramadol 2015-06 No 50 mg, PO, Mem oria 0-31 Q4-6H, PRN l 19:47: Pain, # 20 [place] 00 tab, 0 Refill(s) Botulinum 0 No 300 unit, Mem oria Toxin Type 9-30 Route: IM, l A 16:00: Samuel GALVAN Dosing Weight 64.545, kg, Start date: 03/05/16 11:00:00 CDT, Duration: 30 day, Stop date: 04/04/16 10:59:00 CDT Botulinum 2015-0 No 300 unit, Mem oria Toxin Type 9-30 Route: IM, l A 16:00: ONCALLSamuel Dosing Weight 64.545, kg, Start date: 03/05/16 11:00:00 CDT, Duration: 30 day, Stop date: 04/04/16 10:59:00 CDT Botulinum 2016-0 No 300 unit, Mem oria Toxin Type 9-30 Route: IM, l A 16:00: Samuel GALVAN Dosing Weight 64.545, kg, Start date: 03/05/16 11:00:00 CDT, Duration: 30 day, Stop date: 04/04/16 10:59:00 CDT tramadol 2016-0 Yes 100 mg = 2 Mem oria hydrochlori 9-28 tab, PO, l de 50 MG 20:15: Daily, X Jodi nn Oral Tablet day, # 60 tab, 0 Refill(s) amitriptyli 2016-0 Yes 25 mg = 1 M emoria ne 25 mg 9-28 tab, PO, l oral tablet 20:15: Bedtime, # Samuel 00 30 tab, 1 Refill(s) tramadol 2016-0 Yes 100 mg = 2 Mem oria hydrochlori 9-28 tab, PO, l de 50 MG 20:15: Daily, X Jodi nn Oral Tablet day, # 60 tab, 0 Refill(s) amitriptyli 2016-0 Yes 25 mg = 1 M emoria ne 25 mg 9-28 tab, PO, l oral tablet 20:15: Bedtime, # Samuel 00 30 tab, 1 Refill(s) tramadol 2016-0 Yes 100 mg = 2 Mem oria hydrochlori 9-28 tab, PO, l de 50 MG 20:15: Daily, X Jodi nn Oral Tablet 30 day, # 60 tab, 0 Refill(s) amitriptyli 2016-0 Yes 25 mg = 1 M emoria ne 25 mg 9-28 tab, PO, l oral tablet 20:15: Bedtime, # [place] 00 30 tab, 1 Refill(s) lidocaine 2015-0 No Notes: Memori a 1% 9-28 (Same as: l preservativ 20:03: Xylocaine) [place] e-free injectable solution lidocaine 0 No Notes: Memori a 1% 9-28 (Same as: l preservativ 20:03: Xylocaine) Samuel e-free injectable solution lidocaine No Notes: Memori a 1% 9-28 (Same as: l preservativ 20:03: Xylocaine) Samuel e-free 00 injectable solution lidocaine No 0.04 gm = Mem oria 1% 9-28 4 mL, l preservativ 19:58: intra-YAZAN [place] e-free 00 CULAR, injectable ONCE, # 4 solution mL, 0 Refill(s) lidocaine No 0.04 gm = Mem oria 1% 9-28 4 mL, l preservativ 19:58: intra-YAZAN [place] e-free 00 CULAR, injectable ONCE, # 4 solution mL, 0 Refill(s) lidocaine No 0.04 gm = Mem oria 1% 9-28 4 mL, l preservativ 19:58: intra-YAZAN [place] e-free 00 CULAR, injectable ONCE, # 4 [...] Jodi nn Oral Tablet 00 Ref[facility](s) [facility], l 17:00: Samuel GALVAN Dosing Weight 65, kg, Start date: 12/03/15 12:00:00 CDT, Duration: 30 day, Stop date: 01/02/16 11:59:00 CDT onabotulinu 0 No 200 unit, [facility] mtoxinIvone 12-02 Route: IM, l 17:00: Samuel GALVAN Dosing Weight 65, kg, Start date: 12/03/15 12:00:00 CDT, Duration: 30 day, Stop date: 01/02/16 11:59:00 CDT [facility]abotulinu 0 No [facility]: IM, l 17:00: Samuel GALVAN 00 Dosing Weight 65, kg, Start date: 12/03/15 12:00:00 CDT, Duration: 30 day, Stop date: 01/02/16 11:59:00 CDT tramadol 2016-0 Yes 50 mg, PO, Mem oria hydrochlori 6-29 Q4-6H, PRN l de 50 MG 16:20: Pain, # Manny n Oral Tablet 00 100 tab, 0 Refill(s) tramadol 2016-0 Yes 50 mg, PO, Mem oria hydrochlori 6-29 Q4-6H, PRN l de 50 MG 16:20: Pain, # Manny n Oral Tablet 00 100 tab, 0 Refill(s) tramadol 2016-0 Yes 50 mg, PO, Mem oria hydrochlori 6-29 Q4-6H, PRN l de 50 MG 16:20: Pain, # Manny n Oral Tablet 00 100 tab, 0 Refill(s) lubiproston 2015-0 Yes 24 Memori a e 0.024 MG 6-29 microgram l Oral 16:07: = 1 cap, [place] Capsule 00 PO, BID, # [Amitiza] 60 cap, 0 Refill(s) lubiproston 2015-0 Yes 24 Memori a e 0.024 MG 6-29 microgram l Oral 16:07: = 1 cap, Samuel Capsule 00 PO, BID, # [Amitiza] 60 cap, 0 Refill(s) lubiproston 2016-0 Yes 24 Memori a e 0.024 MG 6-29 microgram l Oral 16:07: = 1 cap, Samuel Capsule 00 PO, BID, # [Amitiza] 60 cap, 0 Refill(s) AMPYRA 10 Yes 10mg Q12H 1 tablet Meth cecil [...] 12 l hr (twelve) hours. AMPYRA 10 Yes 10mg Q12H Take 1 [facility] mg tablet 6-01 tablet (10 st extended 00:00: mg total) [facility] 12 00 by mouth l hr every 12 (twelve) hours. AMPYRA 10 0 Yes 10mg Q12H Take 1 [facility] mg tablet 6-01 tablet (10 st extended 00:00: mg total) [facility] 12 00 by mouth l hr every 12 (twelve) hours. AMPYRA 10 Yes 10mg Q12H 1 tablet [facility] mg tablet 6-01 ([address] extended 00:00: total) [facility]ospita release 12 00 every 12 l hr (twelve) hours. AMPYRA 10 Yes 10mg Q12H 1 tablet [facility] cecil mg tablet 6-01 ([address] extended 00:00: total) [facility]ospita release 12 00 every 12 l hr (twelve) hours. AMPYRA 10 Yes 10mg Q12H 1 tablet [facility] cecil mg tablet 6-01 ([address] extended 00:00: total) Hospita release 12 00 every 12 l hr (twelve) hours. AMPYRA 10 Yes 10mg Q12H 1 tablet Meth cecil mg tablet 6-01 ([address] extended 00:00: total) [facility]ospita release 12 00 every 12 l hr (twelve) hours. AMPYRA 10 0 Yes 10mg Q12H 1 tablet Meth cecil mg tablet 6-01 ([address] extended 00:00: total) Hospita release 12 00 every 12 l hr (twelve) hours. AMPYRA 10 Yes 10mg Q12H Take 1 [facility] mg tablet 6-01 tablet (10 st extended 00:00: mg total) [facility] release 12 00 by mouth l hr every 12 (twelve) hours. onabotulinu 0 No 500 unit, Kush emoria mtoxinA 08-26 Route: IM, l 19:00: Samuel GALVAN Dosing Weight 64.545, kg, Start date: 08/27/15 14:00:00, Duration: 30 day, Stop date: 09/26/15 13:59:00 onabotulinu 0 No 500 unit, Kush emoria mtoxinA 08-26 Route: IM, l 19:00: ONCALLAlvaWeatherly Dosing Weight 64.545, kg, Start date: 08/27/15 14:00:00, Duration: 30 day, Stop date: 09/26/15 13:59:00 onabotulinu 2016-0 No 500 unit, Kush sweet mtoxinA 3 Route: IM, l 19:00: ONCALLAlvaSamuel Dosing Weight 64.545, kg, Start date: 08/27/15 14:00:00, Duration: 30 day, Stop date: 09/26/15 13:59:00 onabotulinu 2014- No 500 unit, Kush sweet mtoxinA 2 Route: IM, l 20:00: ONCALLAlvaSamuel Dosing Weight 65.909, kg, Start date: 05/14/15 14:00:00, Duration: 30 day, Stop date: 06/13/15 13:59:00 onabotulinu 2014-06 No 500 unit, Kush sweet mtoxinA 2 Route: IM, l 20:00: ONCALLSamuel Dosing Weight 65.909, kg, Start date: 05/14/15 14:00:00, Duration: 30 day, Stop date: 06/13/15 13:59:00 onabotulinu 2014-06 No 500 unit, Kush sweet mtoxinA 2 Route: IM, l 20:00: ONCALLAlvaSamuel Dosing Weight 65.909, kg, Start date: 05/14/15 14:00:00, Duration: 30 day, Stop date: 06/13/15 13:59:00 sodium 2015-0 Yes Notes: Memoria chloride 9-02 preservati l 23:00: ve free. sodium 2015-0 Yes Notes: Memoria chloride 9-02 preservati l 23:00: ve free. [place] 00 sodium 2015-0 Yes Notes: Memoria chloride 9-02 preservati l 23:00: ve free. onabotulinu 2015-0 No 600 unit, Kush sweet mtoxinA 9 Route: IM, l 22:00: ONCALL, [place] Dosing Weight 65.909, kg, Start date: 02/05/15 17:00:00, Duration: 30 day, Stop date: 03/07/15 16:59:00 onabotulinu 2015-0 No 600 unit, Kush munizriivone mtoxinA 02-05 Route: IM, l 22:00: ONCALL, [place] 00 Dosing Weight 65.909, kg, Start date: 02/05/15 17:00:00, Duration: 30 day, Stop date: 03/07/15 16:59:00 onabotulinu 2015-0 No 600 unit, Kush sweet mtoxinA 02-05 Route: IM, l 22:00: ONCALL, Samuel 00 Dosing Weight 65.909, kg, Start date: 02/05/15 17:00:00, Duration: 30 day, Stop date: 03/07/15 16:59:00 onabotulinu 2015-0 No 600 unit, Kush sweet mtoxinA 11-06 Route: IM, l 21:00: ONCALL, Samuel Dosing Weight 65.909, kg, Start date: 11/06/14 16:00:00, Duration: 30 day, Stop date: 12/06/14 15:59:00 onabotulinu 2015-0 No 600 unit, Kush sweet mtoxinA 6- Route: IM, l 21:00: ONCALL, [place] 00 Dosing Weight 65.909, kg, Start date: 11/06/14 16:00:00, Duration: 30 day, Stop date: 12/06/14 15:59:00 onabotulinu 2015-0 No 600 unit, Kush munizriivone mtoxinA 6- Route: IM, l 21:00: ONCALL, [place] 00 Dosing Weight 65.909, kg, Start date: 11/06/14 16:00:00, Duration: 30 day, Stop date: 12/06/14 15:59:00 onabotulinu 2015-0 No 400 unit, Kush munizriivone mtoxinA 3-04 Route: IM, l 20:00: ONCALL, [place] 00 Dosing Weight 64.545, kg, Start date: 08/07/14 14:00:00, Duration: 30 day, Stop date: 09/06/14 14:59:00 onabotulinu 2015-0 No 400 unit, M emoria mtoxinA 3-04 Route: IM, l 20:00: ONCALL, Samuel 00 Dosing Weight 64.545, kg, Start date: 08/07/14 14:00:00, Duration: 30 day, Stop date: 09/06/14 14:59:00 onabotulinu No 400 unit, M cristyriivone mtoxinA 3-04 Route: IM, l 20:00: ONCALL, [place] 00 Dosing Weight 64.545, kg, Start date: 08/07/14 14:00:00, Duration: 30 day, Stop date: 09/06/14 14:59:00 onabotulinu 2013-06 No Notes: "TO Memoria mtoxinA 2-04 BE l 20:00: RECONSTITU Samuel 00 PERLITA AND ADMINISTER ED ONLY BY A PHYSICIAN" Reconstitu te with preservati ve free NS only. Stability = 4 hours after reconstitu tion. (Same As: Botox) Pass through med: charges in 1 unit increments . otulin2013-06 No Notes: "TO Memoria mtoxinA 2-04 BE l 20:00: RECONSTITU Samuel 00 PERLITA AND ADMINISTER ED ONLY BY A PHYSICIAN" Reconstitu te with preservati ve free NS only. Stability = 4 hours after reconstitu tion. (Same As: Botox) Pass through med: charges in 1 unit increments . otulin2013-06 No Notes: "TO Memoria mtoxinA 2-04 BE l 20:00: RECONSTITU Samuel 00 PERLITA AND ADMINISTER ED ONLY BY A PHYSICIAN" Reconstitu te with preservati ve free NS only. Stability = 4 hours after reconstitu tion. (Same As: Botox) Pass through med: charges in 1 unit increments . abotulinu No Notes: "TO Memoria mtoxinA 9-02 BE l 19:00: RECONSTITU [place] 00 PERLITA AND ADMINISTER ED ONLY BY A PHYSICIAN" Reconstitu te with preservati ve free NS only. Stability = 4 hours after reconstitu tion. (Same As: Botox) otulinu No Notes: "TO Memoria mtoxinA 9-02 BE l 19:00: RECONSTITU [place] 00 PERLITA AND ADMINISTER ED ONLY BY A PHYSICIAN" Reconstitu te with preservati ve free NS only. Stability = 4 hours after reconstitu tion. (Same As: Botox) onabotulinu No Notes: "TO Memty mtoxinA 02-05 BE l 19:00: RECONSTITU Samuel 00 EPRLITA AND ADMINISTER ED ONLY BY A PHYSICIAN" Reconstitu te with preservati ve free NS only. Stability = 4 hours after reconstitu tion. (Same As: Botox) Tramadol Yes 50 mg, PO, Mem oria 02-05 Q4-6H, l 18:13: Pain, # 20 Samuel 00 tab, 0 Refill(s) Tramadol Yes 50 mg, PO, Mem oria 02-05 Q4-6H, l 18:13: Pain, # 20 [place] 00 tab, 0 Refill(s) Tramadol Yes 50 mg, PO, Mem oria 02-05 Q4-6H, l 18:13: Pain, # 20 Samuel 00 tab, 0 Refill(s) linaclotide Yes 245 mg Brien mora 0.145 MG 7-15 daily, 0 l Oral 19:58: Refill(s) [place] Capsule 00 [Linzess] linaclotide Yes 245 mg Brien mora 0.145 MG 7-15 daily, 0 l Oral 19:58: Refill(s) [place] Capsule 00 [Linzess] linaclotide Yes 245 mg Brien mora 0.145 MG 7-15 daily, 0 l Oral 19:58: Refill(s) Samuel Capsule 00 [Linzess] nortriptyli 2012-06 Yes 10 [...] cap, PO, l oral 21:21: Daily, 90 [place] capsule 55 cap, Substituti on Allowed, CAP Lidoderm 5% 2013-0 Yes 1 patch, Me moria topical 7-16 TOP, l film 18:54: Daily, Samuel (patch) 33 Substituti on Allowed Lidoderm 5% 2012-0 Yes 1 patch, Me moria topical 7-16 TOP, l film 18:54: Daily, Samuel (patch) 33 Substituti on Allowed Lidoderm 5% 2012-0 Yes 1 patch, Me moria topical 7-16 TOP, l film 18:54: Daily, Samuel (patch) 33 Substituti on Allowed MiraLax 2013-0 Yes 17 gm, PO, Brien mora 7-16 Daily, l 18:54: Substituti Samuel 12 on Allowed MiraLax 2013-0 Yes 17 gm, PO, Brien mora 7-16 Daily, l 18:54: Substituti Samuel 12 on Allowed MiraLax 2013-0 Yes 17 gm, PO, Brien mora 7-16 Daily, l 18:54: Substituti Samuel 12 on Allowed Toviaz 4 mg 2012- Yes 4 mg, 1 Mem oria oral [...] Date Status Commen ts Source Name Name PFIZER COVID-19 MRNA 2021-03-17 Completed Meth odist VACCINATION 00:00:00 [facility] PFIZER COVID-19 MRNA 2021-03-17 Completed Meth odist VACCINATION 00:00:00 [facility] PFIZER COVID-19 MRNA 2021-03-17 Completed Meth odist VACCINATION 00:00:00 [facility] PFIZER COVID-19 MRNA 2021-03-17 Completed Meth odist VACCINATION 00:00:00 [facility] COVID-19 MRNA 2021-03-17 Completed Meth odist VACCINATION 00:00:00 [facility] COVID-19 MRNA 2021-03-17 Completed Meth odist VACCINATION 00:00:00 Hospital PFIZER COVID-19 MRNA 2021-03-17 Completed Meth odist VACCINATION 00:00:00 [facility] PFIZER COVID-19 MRNA 2021-03-17 Completed Meth odist VACCINATION 00:00:00 Hospital PFIZER COVID-19 MRNA 2021-03-17 Completed Meth odist VACCINATION 00:00:00 [facility] PFIZER COVID-19 MRNA 2021-03-17 Completed Meth odist VACCINATION 00:00:00 [facility] PFIZER COVID-19 MRNA 2021-03-17 Completed Meth odist VACCINATION 00:00:00 [facility] PFIZER COVID-19 MRNA 2020-08-21 Completed Meth odist VACCINATION 00:00:00 [facility] PFIZER COVID-19 MRNA 2020-08-21 Completed Meth odist VACCINATION 00:00:00 [facility] PFIZER COVID-19 MRNA 2020-08-21 Completed Meth odist VACCINATION 00:00:00 [facility] PFIZER COVID-19 MRNA 2020-08-21 Completed Meth odist VACCINATION 00:00:00 [facility] PFIZER COVID-19 MRNA 2020-08-21 Completed Meth odist VACCINATION 00:00:00 [facility] PFIZER COVID-19 MRNA 2020-08-21 Completed Meth odist VACCINATION 00:00:00 [facility] PFIZER COVID-19 MRNA 2020-08-21 Completed Meth odist VACCINATION 00:00:00 [facility] PFIZER COVID-19 MRNA 2020-08-21 Completed Meth odist VACCINATION 00:00:00 [facility] PFIZER COVID-19 MRNA 2020-08-21 Completed Meth odist VACCINATION 00:00:00 [facility] PFIZER COVID-19 MRNA 2020-08-21 Completed Meth odist VACCINATION 00:00:00 [facility] PFIZER COVID-19 MRNA 2020-08-21 Completed Meth odist VACCINATION 00:00:00 [facility] PFIZER COVID-19 MRNA 2020-07-31 Completed Meth odist VACCINATION 00:00:00 [facility] PFIZER COVID-19 MRNA 2020-07-31 Completed Meth odist VACCINATION 00:00:00 [facility] PFIZER COVID-19 MRNA 2020-07-31 Completed Meth odist VACCINATION 00:00:00 [facility] PFIZER COVID-19 MRNA 2020-07-31 Completed Meth odist VACCINATION 00:00:00 [facility] PFIZER COVID-19 MRNA 2020-07-31 Completed Meth odist VACCINATION 00:00:00 [facility] PFIZER COVID-19 MRNA 2020-07-31 Completed Meth odist VACCINATION 00:00:00 [facility] PFIZER COVID-19 MRNA 2020-07-31 Completed Meth odist VACCINATION 00:00:00 [facility] PFIZER COVID-19 MRNA 2020-07-31 Completed Meth odist VACCINATION 00:00:00 [facility] PFIZER COVID-19 MRNA 2020-07-31 Completed Meth odist VACCINATION 00:00:00 [facility] COVID-19 MRNA 2020-07-31 Completed Meth odist VACCINATION 00:00:00 [facility] COVID-19 MRNA 2020-07-31 Completed Meth odist VACCINATION 00:00:00 [facility] Vital Signs Vital Name Observation Time Observation Value Comments Source HEIGHT 2021-08-25 172.7 cm 08:59:00 WEIGHT 2021-08-25 59.6 kg 08:59:00 HEIGHT 2021-08-24 172.7 cm 08:40:00 WEIGHT 2021-08-24 61.236 kg 08:40:00 [facility] 2021-08-13 162.6 cm 11:28:00 WEIGHT 2021-08-13 61.236 kg 11:28:00 [facility] 2021-08-25 172.7 cm 08:59:00 WEIGHT 2021-08-25 59.6 [...] kg 12:27:00 Systolic blood 2022-10-19 108 mm[Hg] [facility] pressure 22:53:00 Hospital Diastolic blood 2022-10-19 64 mm[Hg] [facility] pressure 22:53:00 Hospital Heart rate 2022-10-19 89 /min [facility] 22:53:00 Hospital Respiratory rate 2022-10-19 16 /min [facility] 22:53:00 Hospital Body height 2022-10-19 172.7 cm [facility] 22:53:00 Hospital Body weight 2022-10-19 52.617 kg [facility] 22:53:00 [facility] BMI 2022-10-19 17.64 kg/m2 [facility] 22:53:00 Hospital Oxygen saturation 2022-10-19 95 /min [facility] in Arterial blood 22:53:00 [facility] by Pulse oximetry Body temperature 2022-09-09 36.17 Rebecca [facility] 12:49:59 Hospital Systolic blood 2022-04-01 92 mm[Hg] [facility] pressure 20:10:47 Hospital Diastolic blood 2022-04-01 50 mm[Hg] [facility] pressure 20:10:47 Hospital Heart rate 2022-04-01 95 /min [facility] 20:10:47 Hospital Body temperature 2022-04-01 36.44 Rebecca [facility] 20:10:47 Hospital Respiratory rate 2022-04-01 18 /min [facility] 20:10:47 Hospital Oxygen saturation 2022-04-01 98 /min [facility] in Arterial blood 20:10:47 [facility] P[facility] oximetry Systolic blood 2022-03-30 86 mm[Hg] [facility] pressure 20:25:30 Hospital Diastolic blood 2022-03-30 54 mm[Hg] [facility] pressure 20:25:30 Hospital Heart rate 2022-03-30 89 /min [facility] 20:25:30 Hospital Body temperature 2022-03-30 36.06 Rebecca [facility] 20:25:30 Hospital Respiratory rate 2022-03-30 18 /min [facility] 20:25:30 Hospital Oxygen saturation 2022-03-30 99 /min [facility] in Arterial blood 20:25:30 [facility] by Pulse oximetry Body height 2022-03-29 172.7 cm [facility] 21:43:00 Hospital Body weight 2022-03-29 55.792 kg [facility] 21:43:00 [facility] BMI 2022-03-29 18.70 kg/m2 [facility] 21:43:00 Hospital Heart rate 2022-03-05 101 /min [facility] 19:05:00 Hospital Respiratory rate 2022-03-05 18 /min [facility] 19:05:00 Hospital Oxygen saturation 2022-03-05 99 /min [facility] in Arterial blood 19:05:00 Hospital by Pulse oximetry Systolic blood 2022-03-05 90 mm[Hg] [facility] pressure 16:11:54 Hospital Diastolic blood 2022-03-05 55 mm[Hg] [facility] pressure 16:11:54 [facility] Body temperature 2022-03-05 35.61 Rebecca [facility] 16:11:54 [facility] Body height 2022-02-25 172.7 cm [facility] 07:13:00 [facility] Body weight 2022-02-25 56.155 kg [facility] 07:13:00 [facility] BMI 2022-02-25 18.82 kg/m2 [facility] 07:13:00 [facility] Systolic blood 2021-08-25 148 mm[Hg] [facility] pressure 17:23:00 [facility] Diastolic blood 2021-08-25 81 mm[Hg] [facility] pressure 17:23:00 [facility] Heart rate 2021-08-25 79 /min [facility] 17:23:00 [facility] Body temperature 2021-08-[address] [facility] 17:23:00 [facility] Oxygen saturation 2021-08-25 99 /min [facility] in Arterial blood 17:23:[address] [facility] nter by Pulse oximetry Respiratory rate 2021-08-25 15 /min [facility] 16:45:00 [facility] Body height 2021-08-[address] [facility] 08:59:00 [facility] Body weight 2021-08-[address] [facility] 08:59:00 [facility] BMI 2021-08-25 19.98 kg/m2 [facility] 08:59:00 [facility] Respitory Rate 2021-04-23 [facility] 00:30:00 Systolic (mm Hg) 2021-04-23 [facility] 00:30:00 Diastolic (mm Hg) 2021-04-23 [facility] 00:30:00 Respitory Rate 2021-04-22 [facility] 23:45:00 Systolic (mm Hg) 2021-04-22 [facility] 23:45:00 Diastolic (mm Hg) 2021-04-22 [facility] 23:45:00 Respitory Rate 2021-04-22 [facility] 23:30:00 Systolic (mm Hg) 2021-04-22 [facility] 23:30:00 Diastolic (mm Hg) 2021-04-22 [facility] 23:30:00 Heart Rate 2021-04-21 [facility] 18:21:00 Height 2021-04-21 172.72 cm [facility] 17:52:00 Weight 2021-04-21 [facility] 17:52:00 BMI Calculated 2021-04-21 [facility] 17:52:00 BP Systolic 2018-10-03 115 mm[Hg] [facility] 14:50:00 BP Diastolic 2018-10-03 78 mm[Hg] [facility] 14:50:00 Heart Rate 2018-10-03 95 /min [facility] 14:50:00 Height 2018-08-23 68 [in_us] [facility] 09:34:00 Weight 2018-08-23 144 [lb_av] [facility] 09:34:00 Body Mass Index 2018-08-23 21.9 kg/m2 [facility] Calculated 09:34:00 BMI Calculated 2018-08-01 [facility] 19:49:00 Weight 2018-08-01 [facility] 19:49:00 Height 2018-08-01 172.72 cm [facility] 19:49:00 Heart Rate 2018-08-01 [facility] 19:49:00 Systolic (mm Hg) 2018-08-01 [facility] 19:49:00 Diastolic (mm Hg) 2018-08-01 [facility] [...] 172.72 cm [facility] 13:43:00 BP Systolic 2018-01-11 101 mm[Hg] Location: LUE; [facility] 11:54:00 BP Diastolic 2018-01-11 62 mm[Hg] Location: LUE; [facility] 11:54:00 Height 2018-01-11 68 [in_us] [facility] 11:54:00 Weight 2018-01-11 143 [lb_av] [facility] 11:54:00 Body Mass Index 2018-01-11 21.74 kg/m2 [facility] Calculated 11:54:00 Temperature 2018-01-11 97.4 [degF] Method: Oral [facility] 11:54:00 Heart Rate 2018-01-11 95 /min Location: L [facility] 11:54:00 Brachial Artery; Height 2017-11-09 172.72 cm [facility] [...] Respitory Rate 2016-12-15 [facility] 21:56:00 Weight 2016-11-10 [facility] 14:36:00 Height 2016-11-10 172.72 cm [facility] 14:36:00 Respitory Rate 2016-11-10 [facility] 14:36:00 Heart Rate 2016-11-10 [facility] 14:36:00 Systolic (mm Hg) 2016-11-10 [facility] 14:36:00 Diastolic (mm Hg) 2016-11-10 [facility] 14:36:00 BMI Calculated 2016-11-10 [facility] 14:36:00 Weight 2016-10-28 [facility] 20:25:00 [...] [facility] turner 19:20:00 Heart Rate 2016-03-03 [facility] 19:20:00 Systolic (mm Hg) 2016-03-03 [facility] [...] Manny n 21:47:00 Height 2012-08-25 173 cm Vandana Bryant n 22:25:00 Weight 2012-08-24 Vandana Callean n 15:13:00 Height 2012-08-24 172.72 cm Vandana Callean n 15:13:00 Respitory Rate 2012-08-24 Vandana Calle turner 15:08:00 Heart Rate 2012-08-24 Vandana Bryant n 15:08:00 Temperature Oral 2012-08-24 97.1 F [facility] Marlon rmann (F) 15:08:00 Diastolic (mm Hg) 2012-08-24 [facility] 15:08:00 Systolic (mm Hg) 2012-08-24 [facility] Marlon rmann 15:08:00 Height 2012-07-18 172.72 cm Vandana Bryant n 21:28:00 Procedures Procedure Date / Time Performing Clinician Source Performed CBC WITH PLATELET AND 2022-09-09 [facility] DIFFERENTIAL 10:56:00 COMPREHENSIVE METABOLIC 2022-09-09 [facility] PANEL 10:56:00 MAGNESIUM LEVEL 2022-09-09 [facility] 10:56:00 PHOSPHORUS LEVEL 2022-09-09 [facility] bryan 10:56:00 ESTIMATED GFR 2022-09-09 [facility] 10:56:00 MRI BRAIN W WO CONTRAST 2022-09-09 [facility] 08:40:42 X RAYS NO CHARGE MRI 2022-09-08 Jj Spear ospital 14:26:51 CBC WITH PLATELET AND 2022-09-08 [facility] DIFFERENTIAL 10:21:00 COMPREHENSIVE METABOLIC 2022-09-08 [facility] PANEL 10:21:00 MAGNESIUM LEVEL 2022-09-08 [facility] 10:21:00 PHOSPHORUS LEVEL 2022-09-08 [facility] bryan 10:21:00 LACTIC ACID LEVEL 2022-09-08 Willy Gomez [facility] 10:21:00 ESTIMATED GFR 2022-09-08 [facility] 10:21:00 LACTIC ACID LEVEL, SEPSIS - 2022-09-07 Matt Jorge [facility] NOW AND REPEAT 2X EVERY 3 10:13:00 HOURS CBC WITH PLATELET AND 2022-09-07 [facility] DIFFERENTIAL 10:13:00 COMPREHENSIVE METABOLIC 2022-09-07 [facility] PANEL 10:13:00 PROTHROMBIN TIME WITH INR 2022-09-07 [facility] 10:13:00 MAGNESIUM LEVEL 2022-09-07 [facility] 10:13:00 PHOSPHORUS LEVEL 2022-09-07 [facility] bryan 10:13:00 TROPONIN T 2022-09-07 [facility]osp ital 10:13:00 ESTIMATED GFR 2022-09-07 [facility] ital 10:13:00 TROPONIN T 2022-09-[address] [facility] ital 06:40:00 THYROID STIMULATING HORMONE 2022-09-07 [facility] 06:40:00 T4, FREE 2022-09-07 [facility] 06:40:00 VITAMIN B12 LEVEL 2022-09-07 [facility] 06:40:00 FOLATE LEVEL 2022-09-07 [facility] 06:40:00 HIV 1/2 ANTIGEN/ANTIBODY, 2022-09-07 [facility] FOURTH GENERATION, WITH 06:40:00 REFLEXES SYPHILIS TREPONEMA SCREEN 2022-09-07 [facility] WITH RPR CONFIRMATION 06:40:00 (REVERSE ALGORITHM) VITAMIN B1 (THIAMINE) 2022-09-07 [facility] 06:40:00 HEMOGLOBIN A1C 2022-09-07 [facility] 06:40:00 LIPID PANEL 2022-09-07 [facility] al 06:40:00 ANTINUCLEAR ANTIBODIES 2022-09-07 [facility] (BRIAN) WITH REFLEX TO TITER 06:40:00 AND PATTERN, IMMUNOFLUORESCENCE PROCALCITONIN 2022-09-07 [facility] al 06:40:00 SEDIMENTATION RATE 2022-09-07 [facility] 06:40:00 C-REACTIVE PROTEIN 2022-09-07 [facility] 06:40:00 VENOUS BLOOD GAS 2022-09-07 [facility] bryan 06:35:00 BLOOD CULTURE, AEROBIC & 2022-09-07 [facility] ANAEROBIC 06:20:00 BLOOD CULTURE, AEROBIC & 2022-09-07 [facility] ANAEROBIC 06:00:00 LACTIC ACID LEVEL, SEPSIS - 2022-09-07 [facility] NOW AND REPEAT 2X EVERY 3 03:31:[address] CHEST WO CONTRAST 2022-09-07 [facility] 01:55:52 CT HEAD WO CONTRAST 2022-09-07 [facility] 00:09:12 XR CHEST 1 VW PORTABLE 2022-09-06 [facility] 23:38:08 COVID-19, INFLUENZA A&B, 2022-09-06 [facility] AND RSV QUALITATIVE RT-PCR 23:22:00 AMMONIA LEVEL 2022-09-06 [facility] Hosp ital 23:22:00 URINE CULTURE 2022-09-06 [facility]osp ital 23:21:00 CBC WITH PLATELET AND 2022-09-06 [facility] DIFFERENTIAL 23:21:00 PROTHROMBIN TIME WITH INR 2022-09-06 [facility] 23:21:00 COMPREHENSIVE METABOLIC 2022-09-06 [facility] PANEL 23:21:00 URINALYSIS SCREEN AND 2022-09-06 [facility] MICROSCOPY, WITH REFLEX TO 23:21:00 CULTURE TROPONIN T 2022-09-06 [facility] Hosp ital 23:21:00 B NATRIURETIC PEPTIDE 2022-09-06 [facility] 23:21:00 LACTIC ACID LEVEL, SEPSIS - 2022-09-06 [facility] NOW AND REPEAT 2X EVERY 3 23:21:00 HOURS ESTIMATED GFR 2022-09-06 [facility] Hosp ital 23:21:00 ECG ED PRELIMINARY 2022-09-06 [facility] H ospital INTERPRETATION 23:15:21 ECG 12-LEAD 2022-09-06 [facility] ital 23:10:28 URINALYSIS SCREEN AND 2022-08-27 [facility] MICROSCOPY, WITH REFLEX TO 20:45:[address] HEAD WO CONTRAST 2022-08-27 [facility] Ho spital 19:16:16 Sangeeth Joywin US DUPLEX ARTERIAL LOWER 2022-08-27 [facility] EXTREMITY RIGHT 18:49:00 Sangeeth Joywin US DUPLEX VENOUS LOWER 2022-08-27 [facility] EXTREMITY RIGHT 18:49:00 Sangeeth Joywin XR CHEST 1 VW PORTABLE 2022-08-27 [facility] 18:22:05 Sangeeth Joywin XR KNEE 4+ VW RIGHT 2022-08-27 [facility] Ho spital 18:21:45 Sangeeth Joywin ECG 12-LEAD [facility] Sangeeth Joywin LACTIC ACID LEVEL, SEPSIS - 2022-08-27 [facility] NOW AND REPEAT 2X EVERY 3 17:49:00 Sangeeth Joywin HOURS CBC WITH PLATELET AND 2022-08-27 [facility] DIFFERENTIAL 17:49:00 Sangeeth Joywin COMPREHENSIVE METABOLIC 2022-08-27 [facility] PANEL 17:49:00 Sangeeth Joywin MAGNESIUM LEVEL 2022[facility]08-[facility] Sangeeth Joywin CREATINE KINASE, TOTAL 2022-08-27 [facility] (CPK) 17:49:00 Sangeeth Joywin PROTHROMBIN TIME WITH INR 2022-08-27 [facility] 17:49:00 Sangeeth Joywin PARTIAL THROMBOPLASTIN TIME 2022-08-27 [facility] (PTT) 17:49:00 Sangeeth Joywin ESTIMATED GFR 2022-08-27 [facility] al 17:49:00 Sangeeth Joywin URINE CULTURE 2022-08-27 [facility] al 17:47:00 Samia Pinonranulfo ECG ED PRELIMINARY 2022-08-27 [facility] INTERPRETATION 17:36:30 Dajaeric Martinez URIC ACID LEVEL 2022-04-01 Arturo Ladd [facility] 12:54:00 CBC WITH PLATELET AND 2022-04-01 [facility] DIFFERENTIAL 08:24:00 LACTIC ACID LEVEL 2022-03-31 Erasmo, [facility] 21:04:00 POTASSIUM LEVEL 2022-03-30 Erasmo Arturo [facility] spital 17:24:00 URIC ACID LEVEL 2022-03-30 Tan, [facility] Ho spital 11:05:00 CBC WITH PLATELET AND 2022-03-30 Tan, [facility] DIFFERENTIAL 08:34:00 CBC WITH PLATELET AND 2022-03-30 Tan, [facility] DIFFERENTIAL 08:34:00 BASIC METABOLIC PANEL 2022-03-30 Tan, [facility] 08:34:00 ESTIMATED GFR 2022-03-30 Tan, [facility] Ho spital 08:34:00 ESTIMATED GFR 2022-03-30 Tan, [facility] Ho spital 08:23:00 ZZCOVID-19 ANTI-SPIKE IGG 2022-03-30 Tan, [facility] ANTIBODY TITER 03:53:00 LACTIC ACID LEVEL, SEPSIS - 2022-03-30 Tan, [facility] NOW AND REPEAT 2X EVERY 3 03:53:00 HOURS LACTIC ACID LEVEL, SEPSIS - 2022-03-30 Tan, [facility] NOW AND REPEAT 2X EVERY 3 03:53:00 HOURS ZZCOVID-19 SEROLOGY PATIENT [facility]03[facility] 03:53:00 COVID-19 ANTI-SPIKE IGG 2022-03-30 Tan, [facility] ANTIBODY TITER 03:43:00 URINALYSIS SCREEN AND 2022-03-30 Bobby Marcel [facility] MICROSCOPY, WITH REFLEX TO 01:54:00 CULTURE URINALYSIS SCREEN AND 2022-03-30 Bobby Marcel [facility] MICROSCOPY, WITH REFLEX TO 01:54:00 CULTURE COVID-19 QUALITATIVE RT-PCR 2022-03-30 [facility] 01:33:00 LACTIC ACID LEVEL, SEPSIS - 2022-03-30 [facility] NOW AND REPEAT 2X EVERY 3 01:33:00 HOURS COVID-19 QUALITATIVE RT-PCR 2022-03-30 [facility] Marcel [facility] 01:33:00 LACTIC ACID LEVEL, SEPSIS - 2022-03-30 [facility] NOW AND REPEAT 2X EVERY 3 01:33:00 HOURS US DUPLEX VENOUS LOWER 2022-03-30 [facility] Marcel [facility] EXTREMITY RIGHT 00:22:55 XR FOOT 3+ VW RIGHT 2022-03-29 Marcel [facility] 23:44:01 BLOOD CULTURE, AEROBIC & 2022-03-29 Bobby Marcel [facility] ANAEROBIC 23:32:00 CBC WITH PLATELET AND 2022-03-29 [facility] DIFFERENTIAL 23:31:00 COMPREHENSIVE METABOLIC 2022-03-29 Bobby Marcel [facility] PANEL 23:31:00 LACTIC ACID LEVEL, SEPSIS - 2022-03-29 [facility] NOW AND REPEAT 2X EVERY 3 23:31:00 HOURS PROTHROMBIN TIME WITH INR 2022-03-29 [facility] 23:31:00 PARTIAL THROMBOPLASTIN TIME 2022-03-29 [facility] (PTT) 23:31:00 C-REACTIVE PROTEIN 2022-03-29 [facility] 23:31:00 SEDIMENTATION RATE 2022-03-29 [facility] 23:31:00 ESTIMATED GFR 2022-03-29 [facility] 23:31:00 URINE CULTURE 2022-03-29 [facility] 22:56:00 CBC WITH PLATELET AND 2022-03-04 [facility] DIFFERENTIAL 09:43:00 BASIC METABOLIC PANEL 2022-03-04 [facility] 09:43:00 ESTIMATED GFR 2022-03-04 Mirta Lomas [facility] spital 09:43:00 XR ABDOMEN 1 VW 2022-03-03 Abebe, Mirta [facility] 22:05:04 XR CHEST 1 VW PORTABLE 2022-03-03 [facility] 20:07:53 CV LEFT HEART CATH LV GRAM 2022-03-03 [facility] WITH CORS 14:28:09 CV LEFT HEART CATH LV GRAM 2022-03-03 [facility] WITH CORS 14:28:09 COMPREHENSIVE METABOLIC 2022-03-03 [facility] 08:38:00 CBC WITH PLATELET AND 2022-03-03 [facility] DIFFER[facility] 08:38:00 MAGNESIUM LEVEL 2022-03-03 Abebe, [facility] Ho spital 08:38:00 PHOSPHORUS LEVEL 2022-03-03 Abebe, [facility] H ospital 08:38:00 PROTHROMBIN TIME WITH INR 2022-03-03 Abebe, [facility] 08:38:00 PARTIAL THROMBOPLASTIN TIME 2022-03-03 [facility] (PTT) 08:38:00 TYPE AND SCREEN 2022-03-03 Abebe, Mirta [facility]ital 08:38:00 ESTIMATED GFR 2022-03-03 Abebe, [facility] Ho spital 08:38:00 CBC WITH PLATELET AND 2022-03-02 [facility] DIFFERENTIAL 10:34:00 Disni COMPREHENSIVE METABOLIC 2022-03-02 [facility] PANEL 10:34:00 Disni ESTIMATED GFR 2022-03-02 [facility] Carlito Guzman H ospital 10:34:00 Disni XR CHEST 1 VW PORTABLE 2022-03-01 [facility] 12:04:12 COMPREHENSIVE METABOLIC 2022-03-01 [facility] PANEL 10:19:00 Disni CBC WITH PLATELET AND 2022-03-01 [facility] DIFFERENTIAL 10:19:00 Disni ESTIMATED GFR 2022-03-01 [facility] ospital 10:19:00 Disni COMPREHENSIVE METABOLIC 2022-02-28 [facility] PANEL 09:11:00 Disni CBC WITH PLATELET AND 2022-02-28 [facility] DIFFERENTIAL 09:11:00 Disni MAGNESIUM LEVEL 2022-02-28 Abebe, [facility] Ho spital 09:11:00 PHOSPHORUS LEVEL 2022-02-28 [facility] 09:11:00 ESTIMATED GFR 2022-02-28 [facility] ospital 09:11:00 Disni URINALYSIS SCREEN AND 2022-02-27 [facility] WITH REFLEX TO 17:58:00 CULTURE URINE CULTURE 2022-02-27 AbebeMirta perkinsist Ho spital 17:57:00 COMPREHENSIVE METABOLIC 2022-02-27 [facility] PANEL 10:54:00 Disni CBC WITH PLATELET AND 2022-02-27 [facility] DIFFERENTIAL 10:54:00 Disni ESTIMATED GFR 2022-02-27 [facility] ospital 10:54:[address] HEAD WO CONTRAST 2022-02-26 [facility] 20:57:32 Disni ZZCOVID-19 ANTI-SPIKE IGG 2022-02-26 Nito Hillman [facility] ANTIBODY TITER 09:11:00 ZZCOVID-19 SEROLOGY PATIENT 2022-02-26 Nito Hillman [facility] SURVEILLANCE 09:11:00 CBC WITH PLATELET AND 2022-02-26 [facility] DIFFERENTIAL 09:11:00 Marlen BASIC METABOLIC PANEL 2022-02-26 [facility] 09:11:00 Marlen ESTIMATED GFR 2022[facility]02[facility]26 [facility]00 Marlen TTE COMPLETE, WO CONTRAST, 2022-02-25 [facility] W DOPPLER ([id number]) 21:20:00 RESPIRATORY PATHOGEN PANEL 2022-02-25 [facility] WITH COVID-19 RT-PCR 10:44:00 INFLUENZA ANTIGEN TEST, 2022-02-25 [facility] REFLEX NEGATIVE TO RPP 10:44:00 RESPIRATORY PATHOGEN PANEL 2022-02-25 [facility] WITH COVID-19 RT-PCR 10:44:00 PROTHROMBIN TIME WITH INR 2022-02-25 [facility] 10:44:00 LACTIC ACID LEVEL, SEPSIS - 2022-02-25 [facility] NOW AND REPEAT 2X EVERY 3 10:44:00 HOURS ANTI XA, UNFRACTIONATED 2022-02-25 [facility] 09:19:00 TROPONIN T 2022-02-25 [facility] 09:19:00 LACTIC ACID LEVEL, SEPSIS - 2022-02-25 [facility] NOW AND REPEAT 2X EVERY 3 08:16:00 HOURS CBC WITH PLATELET AND 2022-02-25 [facility] DIFFERENTIAL 08:16:00 COMPREHENSIVE METABOLIC 2022-02-25 [facility] PANEL 08:16:00 PROCALCITONIN 2022-02-25 [facility] 08:16:00 ESTIMATED GFR 2022-02-25 [facility] 08:16:00 TROPONIN T 2022-02-25 [facility] 06:30:00 COVID-19 QUALITATIVE RT-PCR 2022-02-25 [facility] 06:05:00 BLOOD CULTURE, AEROBIC & 2022-02-25 [facility] ANAEROBIC 05:15:00 BLOOD CULTURE, AEROBIC & 2022-02-25 Mimi, [facility] ANAEROBIC 05:14:00 HEPATIC FUNCTION PANEL 2022-02-25 , [facility] 05:08:00 LACTIC ACID LEVEL, SEPSIS - 2022-02-25 Benitez Horvath [facility] NOW AND REPEAT 2X EVERY 3 05:08:00 HOURS US DUPLEX VENOUS LOWER 2022-02-25 , [facility] EXTREMITY LEFT 05:00:00 CT ANGIOGRAM PE CHEST 2022-02-25 , [facility] 04:55:51 ECG ED PRELIMINARY 2022-02-25 [facility] pital INTERPRETATION 04:05:33 XR CHEST 1 VW PORTABLE [facility]22[facility]-25 [facility] 03:45:01 CBC WITH PLATELET AND 2022-02-25 [facility] DIFFERENTIAL 03:26:00 COMPREHENSIVE METABOLIC 2022-02-25 [facility] PANEL 03:26:00 TROPONIN T 2022-02-25 Benitez Horvath [facility] 03:26:00 B NATRIURETIC PEPTIDE 2022-02-25 , [facility] 03:26:00 PARTIAL THROMBOPLASTIN TIME 2022-02-25 [facility] (PTT) 03:26:00 PROTHROMBIN TIME WITH INR 2022-02-25 [facility] 03:26:00 ESTIMATED GFR 2022-02-25 [facility] 03:26:00 ECG 12-LEAD 2022-02-25 [facility] 02:55:45 FL FLUORO NON-SPECIFIC UP 2021-08-[address] [facility] TO 1 HOUR 15:55:00 Medical Center RADIOFREQUENCY ABLATION, 2021-08-25 Maral Mason [facility] NERVE, TRIGEMINAL 14:25:00 Medical Center PROCEDURE W/ C-ARM 2021-08-25 Maral Mason [facility] 14:25:00 [facility] XR CHEST 2 VIEWS 2021-08-20 Maral Mason [facility] 09:43:00 Medical Center SARS-COV2/RT-PCR ([facility] & 2021-08-[address] [facility] REF LABS) 09:04:00 [facility] URINALYSIS W/ REFLEX URINE 2021-08-[address] [facility] CULTURE 08:59:00 [facility] BASIC METABOLIC PANEL 2021-08-[address] [facility] 08:59:00 [facility] CBC W/PLT COUNT & AUTO 2021-08-20 [facility]Maral [facility] DIFFERENTIAL 08:59:00 [facility] PROTHROMBIN TIME/INR 2021-08-20 [facility] 08:59:00 [facility] PT/APTT 2021-08-20 [facility] 08:59:00 [facility] TYPE AND SCREEN, AUTOMATED 2021-08-[address] [facility] 08:59:00 [facility] CBC W/PLT COUNT & AUTO 2021-08-20 [facility] DIFFER[facility] 08:59:00 [facility] ECG 12-LEAD 2021-08-20 [facility] 07:56:30 [facility] ECG 12-LEAD 2021-08-20 Unknown, [facility] 07:56:30 [facility] BASIC METABOLIC PANEL 2021-07-01 Scott, Terrell [facility] 11:23:00 [facility] CBC W/PLT COUNT & AUTO 2021-07-01 [facility] DIFFERENTIAL 11:23:00 [facility] CBC W/PLT COUNT & AUTO 2021-07-01 [facility], Terrell [facility] DIFFERENTIAL 11:23:00 [facility] XR KNEE 1 OR 2 VIEWS LEFT 2021[facility]07[facility] 11:12:00 [facility] XR CHEST 1 VIEW PORTABLE / 2021-06-16 [facility] Rincon [facility] B[facility] 10:47:[address] [facility] CT BIOPSY LUNG 2021-06-[address] [facility] 09:53:00 [facility] TISSUE EXAM 2021-06-[address] [facility] 09:50:00 [facility] CBC W/PLT COUNT & AUTO 2021-06-16 Osvaldo, Mateo Roberto [facility] DIFFERENTIAL 05:39:00 [facility] Center BASIC METABOLIC PANEL 2021-06-16 Osvaldo, Mateo Roberto [facility] 05:39:00 Medical Center CBC W/PLT COUNT & AUTO 2021-06-16 Osvaldo, Mateo Roberto [facility] DIFFERENTIAL 05:39:00 Medical Center MR LOWER EXTREMITY JOINT 2021-06-15 Prachiuddin, Maxwell [facility] ONLY WITH & WITHOUT IV 17:44:00 Medical C enter CONTRAST RIGHT MR LOWER EXTREMITY JOINT 2021-06-15 Masihuddin, Maxwell [facility] ONLY WITH & WITHOUT IV 17:40:00 Medical C enter CONTRAST CBC W/PLT COUNT & AUTO 2021-06-15 Osvaldo, Mateo Roberto [facility] DIFFERENTIAL 05:17:00 [facility] BASIC METABOLIC PANEL 2021-06-15 Osvaldo, Mateo Roberto [facility] 05:17:00 Medical Center CBC W/PLT COUNT & AUTO 2021-06-15 Osvaldo, Mateo Roberto [facility] DIFFERENTIAL 05:17:00 [facility] URINALYSIS W/ MICROSCOPIC 2021-06-[address] [facility] 05:18:00 [facility] URINE CULTURE 2021-06-[address] [facility] 05:18:[address] CHEST WITH & WITHOUT IV 2021-06-14 Harika Torres [facility] CONTRAST 04:35:00 [facility] PROTHROMBIN TIME/INR 2021-06-14 Osvaldo, Mateo Pardeep [facility] 04:25:00 [facility] APTT 2021-06-14 Osvaldo, Mateo [facility] 04:25[facility]00 [facility] BLOOD CULTURE 2021-06-14 Osvaldo, Mateo Roberto [facility] 04:24:00 [facility] LACTIC ACID, VENOUS 2021-06-[address] [facility] 03:31:00 [facility] XR CHEST 1 VIEW PORTABLE / 2021-06-14 Brian Jinlucero [facility] BEDSIDE 03:29:00 [facility] SARS-COV2/RT-PCR ([facility] & 2021-06-[address] [facility] REF LABS) 02:49:00 [facility] CBC W/PLT COUNT & AUTO 2021-06-[address] [facility] DIFFERENTIAL 02:48:00 [facility] BASIC METABOLIC PANEL 2021-06-[address] [facility] 02:48:00 [facility] MAGNESIUM 2021-06-14 Osvaldo, Mateo Roberto [facility] 02:48:00 [facility] PHOSPHORUS 2021-06-14 Osvaldo, Mateo Roberto [facility] 02:48:00 [facility] CBC W/PLT COUNT & AUTO 2021-06-14 Harika Torres [facility] DIFFERENTIAL 02:48:00 [facility] MR LUMBAR SPINE WITH & 2021-06-[address] [facility] WITHOUT IV CONTRAST 13:00:00 [facility] er BASIC METABOLIC PANEL 2021-06-[address] [facility] 10:35:00 [facility] SARS-COV2/RT-PCR ([facility] & 2021-06-08 Husu, Hill Narcis [facility] REF LAB[facility] 14:23:00 [facility] Procedure 2019-06-06 [facility] 00:00:00 Chemodenervation of one 2017-11-09 [facility] extremity; 1-4 muscle(s) 19:16:00 Chemodenervation of one 2017-11-09 [facility] [place] extremity; each additional 19:16:00 extremity, 1-4 muscle(s) (List separately in addition to code for primary procedure) Chemodenervation of one 2017-10-05 [facility] extremity; 5 or more 14:54:00 muscles Replacement of total knee 2017-08-25 [facility] joint 05:00:00 Chemodenervation of one 2017-05-11 [facility] [place] extremity; each additional 17:17:00 extremity, 5 or more muscles (List separately in addition to code for primary procedure) Arthrocentesis, aspiration 2017-01-05 [facility] and/or injection, major 18:01:00 joint or bursa (eg, shoulder, hip, knee, subacromial bursa); with ultrasound guidance, with permanent recording and reporting Injection(s); single or 2016-10-14 [facility] multiple trigger point(s), 22:49:00 3 or more muscles Injection(s); single or 2016-03-03 [facility] multiple trigger point(s), 21:12:00 1 or 2 muscle(s) Bilateral oophorectomy 2007-06-06 [facility] 00:00:00 Radiation therapy procedure 2006-06-06 [facility]rien [facility] or service 00:00:00 Breast lumpectomy 2006-06-06 [facility] nn 00:00:00 Bunionectomy [facility] Operation<sup>1</sup> [facility] Appendectomy [facility] Trigeminal nerve block [facility] Plan of Care Planned Activity Planned Date Details Comments Source Future Scheduled 2023-02-14 65+ PNEUMOCOCCAL [facility] Test 10:11:06 VACCINE (1 - PCV) [code = 65+ PNEUMOCOCCAL VACCINE (1 - PCV)] Future Scheduled 2023-02-14 Hepatitis C screening [facility] Test 10:11:06 (procedure) [code = 450314037] Future Scheduled 2023-02-14 SHINGLES VACCINES (1 Met [facility] Test 10:11:06 of 2) [code = SHINGLES VACCINES (1 of 2)] Future Scheduled 2023-02-14 COVID-19 VACCINE (4 - [facility] Test 10:11:06 Pfizer series) [code = COVID-19 VACCINE (4 - Pfizer series)] Future Scheduled 2023-02-14 INFLUENZA VACCINE (#1) [facility] Test 10:11:06 [code = INFLUENZA VACCINE (#1)] Future Scheduled 2023-02-14 65[facility] 10:11:06 VACCINE (1 - PCV) [code = 65+ PNEUMOCOCCAL VACCINE (1 - PCV)] Future Scheduled 2023-02-14 Hepatitis C screening [facility] Test 10:11:06 (procedure) [code = 466961731] Future Scheduled 2023-02-14 SHINGLES VACCINES (1 Met [facility] Test 10:11:06 of 2) [code = SHINGLES VACCINES (1 of 2)] Future Scheduled 2023-02-14 COVID-19 VACCINE (4 - [facility] Test 10:11:06 Pfizer series) [code = COVID-19 VACCINE (4 - Pfizer series)] Future Scheduled 2023-02-14 INFLUENZA VACCINE (#1) [facility] Test 10:11:06 [code = INFLUENZA VACCINE (#1)] Future Scheduled 2023-02-[address] [...] Medical Ce nter Vaccine (#1)] Future Scheduled 2023-02-04 Influenza Vaccine (#1[facility] 00:00[facility]00 [code = Influenza Medical Ce nter Vaccine (#1)] Future Scheduled 2023-02-04 Influenza Vaccine (#1) [facility] Test 00:00:00 [code = Influenza Medical Ce nter Vaccine (#1)] Future Scheduled 2023-01-17 65+ [facility]CCAL [facility] Test 13:49:17 VACCINE (1 - PCV) [code = 65+ PNEUMOCOCCAL VACCINE (1 - PCV)] Future Scheduled 2023-01-17 Hepatitis C screening [facility] Test 13:49:17 (procedure) [code = [id number]] Future Scheduled 2023-01-17 SHINGLES VACCINES (1 [facility] Test 13:49:17 of 2) [code = SHINGLES VACCINES (1 of 2)] Future Scheduled 2023-01-17 COVID-19 VACCINE (4 - [facility] Test 13:49:17 Pfizer series) [code = COVID-19 [...] SCREENING] Future Scheduled 2022-04-19 HEPATITIS B VACCINES Met [facility] Test 08:38:35 (1 of 3 - 3-dose series) [code = HEPATITIS B VACCINES (1 of 3 - 3-dose series)] Future Scheduled 2022-04-19 65+ [facility] 08:38:35 VACCINE (1 - PCV) [code = 65+ PNEUMOCOCCAL VACCINE (1 - PCV)] Future Scheduled 2022-04-19 Hepatitis C screening [facility] Test 08:38:35 (procedure) [code = 432303351] Future Scheduled 2022-04-19 SHINGLES VACCINES (1 [facility] Test 08:38:35 of 2) [code = SHINGLES VACCINES (1 of 2)] Future Scheduled 2022-04-19 COVID-19 VACCINE (4 - [facility] Test 08:38:35 Booster for Pfizer series) [code = COVID-19 VACCINE (4 - Booster for Pfizer series)] Future Scheduled 2022-04-19 HEPATITIS B VACCINES Met [facility] Test 08:38:35 (1 of 3 - 3-dose series) [code = HEPATITIS B VACCINES (1 of 3 - 3-dose series)] Future Scheduled 2022-04-19 65+ PNEUMOCOCCAL [facility] Test 08:38:35 VACCINE (1 - PCV) [code = 65+ PNEUMOCOCCAL VACCINE (1 - PCV)] Future Scheduled 2022-04-19 Hepatitis C screening [facility] Test 08:38:35 (procedure) [code = 170706207] Future Scheduled 2022-04-19 SHINGLES VACCINES (1 [facility] Test 08:38:35 of 2) [code = SHINGLES VACCINES (1 of 2)] Future Scheduled 2022-04-19 COVID-19 VACCINE (4 - [facility] Test 08:38:35 Booster for Pfizer series) [code = COVID-19 VACCINE (4 - Booster for Pfizer series)] Future Scheduled 2022-04-15 HEPATITIS B VACCINES Met [facility] Test 08:28:22 (1 of 3 - 3-dose series) [code = HEPATITIS B VACCINES (1 of 3 - 3-dose series)] Future Scheduled 2022-04-15 65+ [facility]OCOCCAL [facility] Test 08:28:22 VACCINE (1 - PCV) [code = 65+ PNEUMOCOCCAL VACCINE (1 - PCV)] Future Scheduled 2022-04-15 Hepatitis C screening [facility] Test 08:28:22 (procedure) [code = 872057982] Future Scheduled 2022-04-15 SHINGLES VACCINES (1 [facility] Test 08:28:22 of 2) [code = SHINGLES VACCINES (1 of 2)] Future Scheduled 2022-04-15 COVID-19 VACCINE (4 - Me [facility] Test 08:28:22 Booster for Pfizer series) [code = COVID-19 VACCINE (4 - Booster for Pfizer series)] Future Scheduled 2022-04-02 HEPATITIS B VACCINES [facility] Test 09:00:51 (1 of 3 - 3-dose series) [code = HEPATITIS B VACCINES (1 of 3 - 3-dose series)] Future Scheduled 2022-04-02 65+ P[facility]OCOCCAL [facility] Test 09:00:51 VACCINE (1 - PCV) [code = 65+ PNEUMOCOCCAL VACCINE (1 - PCV)] Future Scheduled 2022-04-02 Hepatitis C screening [facility] Test 09:00:51 (procedure) [code = 821931936] Future Scheduled 2022-04-02 SHINGLES VACCINES (1 [facility] Test 09:00:51 of 2) [code = SHINGLES VACCINES (1 of 2)] Future Scheduled 2022-04-02 COVID-19 VACCINE (4 - Me [facility] Hospital Test 09:00:51 Booster for Pfizer series) [code = COVID-19 VACCINE (4 - Booster for Pfizer series)] Future Scheduled 2022-03-30 HEPATITIS B VACCINES Met [facility] Test 13:53:39 (1 of 3 - 3-dose series) [code = HEPATITIS B VACCINES (1 of 3 - 3-dose series)] Future Scheduled 2022-03-30 65+ P[facility]OCOCCAL [facility] Test 13:53:39 VACCINE (1 - PCV) [code = 65+ PNEUMOCOCCAL VACCINE (1 - PCV)] Future Scheduled 2022-03-30 Hepatitis C screening [facility] Test 13:53:39 (procedure) [code = 524104389] Future Scheduled 2022-03-30 SHINGLES VACCINES (1 [facility] Test 13:53:39 of 2) [code = SHINGLES VACCINES (1 of 2)] Future Scheduled 2022-03-30 COVID-19 VACCINE (4 - [facility] Test 13:53:39 Booster for Pfizer series) [code = COVID-19 VACCINE (4 - Booster for Pfizer series)] Future Scheduled 2022-03-23 HEPATITIS B VACCINES [facility] Test 10:27:51 (1 of 3 - 3-dose series) [code = HEPATITIS B VACCINES (1 of 3 - 3-dose series)] Future Scheduled 2022-03-23 65+ PNEUMOCOCCAL [facility] Test 10:27:51 VACCINE (1 - PCV) [code = 65+ PNEUMOCOCCAL VACCINE (1 - PCV)] Future Scheduled 2022-03-23 Hepatitis C screening [facility] Test 10:27:51 (procedure) [code = 863692029] Future Scheduled 2022-03-23 SHINGLES VACCINES (1 [facility] Test 10:27:51 of 2) [code = SHINGLES VACCINES (1 of 2)] Future Scheduled 2022-03-23 COVID-19 VACCINE (4 - Me [facility] Test 10:27:51 Booster for Pfizer series) [code = COVID-19 VACCINE (4 - Booster for Pfizer series)] Future Scheduled 2022-03-16 HEPATITIS B VACCINES [facility] Test 09:00:25 (1 of 3 - 3-dose series) [code = HEPATITIS B VACCINES (1 of 3 - 3-dose series)] Future Scheduled 2022-03-16 65+ PNEUMOCOCCAL [facility] Test 09:00:25 VACCINE (1 - PCV) [code = 65+ PNEUMOCOCCAL VACCINE (1 - PCV)] Future Scheduled 2022-03-16 Hepatitis C screening [facility] Test 09:00:25 (procedure) [code = 465905642] Future Scheduled 2022-03-16 SHINGLES VACCINES (1 Met [facility] Test 09:00:25 of 2) [code = SHINGLES VACCINES (1 of 2)] Future Scheduled 2022-03-16 COVID-19 VACCINE (4 - Me [facility] Hospital Test 09:00:25 Booster for Pfizer series) [code = COVID-19 VACCINE (4 - Booster for Pfizer series)] Future Scheduled 2022-03-16 HEPATITIS B VACCINES Met [facility] Test 09:00:25 (1 of 3 - 3-dose series) [code = HEPATITIS B VACCINES (1 of 3 - 3-dose series)] Future Scheduled 2022-03-16 65+ PNEUMOCOCCAL [facility] Test 09:00:25 VACCINE (1 - PCV) [code = 65+ PNEUMOCOCCAL VACCINE (1 - PCV)] Future Scheduled 2022-03-16 Hepatitis C screening [facility] Test 09:00:25 (procedure) [code = 333954633] Future Scheduled 2022-03-16 SHINGLES VACCINES (1 Met [facility] Test 09:00:25 of 2) [code = SHINGLES VACCINES (1 of 2)] Future Scheduled 2022-03-16 COVID-19 VACCINE (4 - [facility] Hospital Test 09:00:25 Booster for Pfizer [...] DXA [facility] Test 00:00:00 SCAN] [facility] Future Scheduled 1944 DXA SCAN [code = DXA [facility] Test 00:00:00 SCAN] [facility] Future Scheduled 1944 DXA SCAN [code = DXA [facility] Test 00:00:00 SCAN] [facility] Future Scheduled 1944 DXA SCAN [code = DXA [facility] Test 00:00:00 SCAN] [facility] Future Scheduled 1944 DXA SCAN [code = DXA [facility] Test 00:00:00 SCAN] [facility] Future Scheduled 1944 DXA SCAN [code = DXA [facility] Test 00:00:00 SCAN] [facility] Future Scheduled 1944 DXA SCAN [code = DXA [facility] Test 00:00:00 SCAN] [facility] Future Scheduled 1944 DXA SCAN [code = DXA [facility] Test 00:00:00 SCAN] [facility] Future Scheduled 1944 DXA SCAN [code = DXA [facility] Test 00:00:00 SCAN] [facility] Future Scheduled 1944 DXA SCAN [code = DXA [facility] Test 00:00:00 SCAN] [facility] Future Scheduled 1944 DXA SCAN [code = DXA [facility] Test 00:00:00 SCAN] [facility] Future Scheduled 1944 DXA SCAN [code = DXA [facility] Test 00:00:00 SCAN] [facility] Future Scheduled 1944 DXA SCAN [code = DXA [facility] Test 00:00:00 SCAN] [facility] Future Scheduled 1944 DXA SCAN [code = DXA [facility] Test 00:00:00 SCAN] [facility] Future Scheduled 1944 DXA SCAN [code = DXA [facility] Test 00:00:00 SCAN] [facility] Encounters Start End Encounter Admission Attending Care Care Encounter Source Date/Time Date/Time Type Type Clinicians Facility Department ID 2023-01-25 Outpatient 3 MARCEL DAMIANL PUL [id number] [facility] 11:36:14 [id number] [facility] 2023-01-21 Outpatient 3 [id number] ENCS[facility] REF [id number] [facility] 14:08:05 [id number] [facility] 2023-01-20 Outpatient 3 [id number] ENCS[facility] REF [id number] [facility] 12:09:48 [id number] [facility] 2022-12-22 Outpatient 3 [id number] ENCS[facility] CVA [id number] [facility] 11:59:29 [id number] [facility] 2022-12-17 Outpatient 3 [id number] EN[facility] REF [id number] [facility] 12:19:44 [id number] [facility] 2022-12-15 Outpatient 3 [id number] ENCSL REF [id number] [facility] 13:51:04 [id number] [facility] 2022-12-03 Outpatient SYSTEM, MAXIME SWARTZ [id number] 07:27:29 PROVIDER Manuel ng 2022-09-06 TO MHIE MHIE [id number] Id moria 21:48:11 19 l [place] 2022-09-06 Outpatient MHIE MHIE [id number] Memoria 21:48:11 03 l [place] 2022-09-06 Outpatient MHIE MHIE [id number] [facility] 21:48:11 12 l [place] 2022-09-06 Outpatient MHIE MHIE [id number] [facility] 21:48:11 10 l [facility] 2022-09-06 Outpatient MHIE MHIE [id number] [facility] 21:48:11 21 l [facility] 2022-09-06 Outpatient MHIE MHIE [id number] [facility] 21:48:11 18 l [facility] 2022-09-06 Outpatient SUJEY SMITH MHFB [id number] 09:57:12 TWYLA 2022-07-26 Outpatient SYSTEM, MAXIME SWARTZ [id number] 10:09:24 PROVIDER Manuel ng 2022-06-17 Outpatient MAXIME RENDON Amy/Hep/Nu [id number] 10:25:14 CLARKE ng 2022-02-10 Outpatient MAXIME RENDON Amy/Hep/Nu [id number] 11:25:49 CLARKE ng 2021-07-22 [facility] [id number] 13:21:03 EDDIE ng 2021-06-29 Outpatient [facility] Surgery [id number] [facility] 11:06:26 HILL 2018-11-24 Inpatient C JUNE VILLALBA [facility] [place] [id number] [facility] 08:48:00 [facility] 2023-01-26 2023-02-12 Inpatient 3 ANMOL EWING SHELBY [id number] [facility] 18:51:00 16:34:00 JEFF [id number] 2023-02-11 2023-02-11 Outpatient C LARS BANSAL [facility] 1 [id number] [facility] 14:19:00 23:59:00 [facility]11 2023-02-11 Outpatient C NIMISHA LARS [facility] 4 [id number] [facility] 14:19:00 23:59:00 BANSALREINALDOIP [id number] [facility] 2023-01-27 2023-01-27 Outpatient KATTY SANTOS MDA MDA [id number] 07:31:57 10:37:47 Manuel ng 2022-12-23 2023-01-15 Inpatient 3 MARCEL DAMIAN ENCSL CVA [id number] [facility] 17:39:00 13:10:00 [id number] [facility] 2022-12-07 2022-12-23 Inpatient ER MAXIME WARD Thor [id number] 21:07:00 17:20:00 LYNN H\\T\\N Manuel ng 2022-12-20 2022-12-20 [facility] Deejay June 1.2.840.1 [id number] Methodi 11:45:00 12:00:00 ne Tamiko-Ju 43582.1.[address] 3.430.2.7 Hospit a .3.609551 l .8 2022-12-20 2022-12-20 Tele[facility] Deejay June 1.2.840.1 [id number] Methodi 11:45:00 12:00:00 ne Tamiko-Ju 98796.1.[address] 3.430.2.7 Hospit a .3.058594 l .8 2022-12-15 2022-12-15 Inpatient EL ANAND-REBECCA MDA MDA [id number] 16:17:56 16:37:40 NBERKLEY rso n 2022-12-15 2022-12-15 Inpatient EL ANAND-REBECCA MDA MDA [id number] 14:17:36 14:32:28 NBERKLEY rso n 2022-12-14 2022-12-14 Inpatient EL MDA MDA [id number] MD 13:08:31 16:32:09 Manuel o n 2022-12-13 2022-12-13 Inpatient EL KATTY OLIVEIRA MDA MDA [id number] 09:48:07 09:49:59 Manuel o n 2022-12-10 2022-12-10 Inpatient EL KATTY OLIVEIRA MDA MDA [id number] 14:57:53 14:58:01 Manuel o n 2022-12-09 2022-12-09 Inpatient KATTY SANTOS MDA MDA [id number] 12:18:11 12:18:14 Manuel o n 2022-11-25 2022-11-25 Outpatient ELVIA GARNER, MDA MDA [id number] 14:11:26 14:11:26 LETTY Munoz so n 2022-11-18 2022-11-24 Outpatient KATTY SANTOS MDA MDA [id number] 12:09:04 08:24:27 Manuel o n 2022-11-16 2022-11-16 Outpatient EL MARU, MDA MDA [id number] 14:07:13 14:07:13 ABDIAS Casasers o n 2022-11-04 2022-11-12 Inpatient UR FARIDA, MDA Thor [id number] MD 14:17:00 16:03:00 MAZIN H\\T\\N Manuel o n 2022-11-10 2022-11-10 Inpatient EL KATERINE, MDA MDA [id number] 10:33:07 15:27:59 BARRERA Mendoza rso n 2022-11-08 2022-11-08 Outpatient ELVIA SCHROEDER, MDA MDA [id number] 10:43:35 10:43:35 NANDO Manuel o n 2022-11-08 2022-11-08 Outpatient ELVIA SCHROEDER MDA MDA [id number] 10:33:42 10:33:42 NANDO Manuel o n 2022-11-05 2022-11-05 Inpatient ELVIA CHURCH ED MDA MDA [id number] 13:10:41 13:10:46 Manuel o n 2022-10-25 2022-10-25 Outpatient LEEANNE BLAND MDA MDA [id number] 09:15:24 10:02:18 Manuel o n 2022-10-19 2022-10-25 Office Timmons, 1.2.840.1 [id number] Methodi 17:30:00 00:29:13 Visit Lorena Luz 88621.1.1 383 s t 3.430.2.7 Hospit a .3.794536 l .8 2022-10-19 2022-10-25 Office Timmons, 1.2.840.1 [id number] Methodi 17:30:00 00:29:13 Visit Lorena Mcmanus 11119.1.1 383 s t 3.430.2.7 Hospit a .3.266107 l .8 2022-10-19 2022-10-19 Travel 1.2.840.1 1.2.363.851 [id number] Methodi 00:00:00 00:00:[address] 3.430.2.7 0.2.7.3.698 Ho spita .3.019143 084.8 l .8 2022-10-19 2022-10-19 Travel 1.2.840.1 1.2.992.634 1407 [id number] Methodi 00:00:00 00:00:[address] 3.430.2.7 0.2.7.3.698 Ho spita .3.928845 084.8 l .8 2022-09-27 2022-09-27 Oncology Olden, 1.2.840.1 [id number] [id number] Methodi 00:00:00 00:00:00 [facility] Silvia 25542.1.1 606 s t ip 3.430.2.7 Hospit a .3.399033 l .8 2022-09-27 2022-09-27 Oncology Van, 1.2.840.1 [id number] 2100 [id number] Methodi 00:00:00 00:00:00 Carlos Vega 65684.1.1 606 s t ip 3.430.2.7 Hospit a .3.813776 l .8 2022-09-24 2022-09-24 Refill Spear, 1.2.840.1 [id number] Methodi 00:00:00 00:00:[address] 3.430.2.7 Hospit a .3.541445 l .8 2022-09-24 2022-09-24 Refill Spear, 1.2.840.1 [id number] 6188 Methodi 00:00:00 00:00:[address] 3.430.2.7 Hospit a .3.576231 l .8 2022-09-17 2022-09-17 Outpatient ELVIA PATSY, MAXIME MDA [id number] 12:30:00 23:59:00 LETTY ng 2022-09-17 2022-09-17 Outpatient ELVIA OLIVEIRA KATTY MDA MDA [id number] 08:01:13 11:36:26 Manuel ng 2022-09-17 2022-09-17 Outpatient ELVIA GARNERMAXIME MDA [id number] 09:56:40 09:56:40 LETTY ng 2022-09-06 2022-09-09 [facility] 1.2.840.1 [id number] Methodi 17:56:00 13:25:00 Encounter Benitez Horvath 97669.1.[address] [facility]ail[facility] 3.430.2.7 [facility] Jj .3.850648 l .8 2022-09-06 2022-09-09 [facility] 1.2.840.1 [id number] Methodi 17:56:00 13:25:00 Encounter Benitez Horvath 99862.1.[address] [facility] Shailesh 3.430.2.7 Ho spita Jj Spear .3.386738 l .8 2022-09-08 2022-09-08 [facility] JUNE VILLALBA [facility] [id number] [place] 00:00:00 00:00:[address] 2022-09-06 2022-09-06 Travel 1.2.840.1 1.2.029.976 3965 [id number] Methodi 00:00:00 00:00:[address] 3.430.2.7 0.2.7.3.698 Ho spita .3.100406 084.8 l .8 2022-09-06 2022-09-06 Travel 1.2.840.1 1.2.146.532 1346 [id number] Methodi 00:00:00 00:00:[address] 3.430.2.7 0.2.7.3.698 Ho spita .3.071506 084.8 l .8 2022-08-27 2022-08-27 Emergency Esmer, 1.2.840.1 [id number] Methodi 12:33:00 18:29:[address] [place] 3.430.2.7 Hospi ta [place] .3.393243 l .8 2022-08-27 2022-08-27 Emergency Esmer, 1.2.840.1 [id number] Methodi 12:33:00 18:29:[address] [place] 3.430.2.7 Hospi ta [place] .3.598841 l .8 2022-08-27 2022-08-27 Travel 1.2.840.1 1.2.180.130 3432 [id number] Methodi 00:00:00 00:00:[address] 3.430.2.7 0.2.7.3.698 Ho spita .3.240784 084.8 l .8 2022-08-27 2022-08-27 Telephone King 1.2.840.1 [id number] [id number] Methodi 00:00:00 00:00:[address] 3.430.2.7 Hospit a .3.268308 l .8 2022-08-27 2022-08-27 Travel 1.2.840.1 1.2.849.549 3041 [id number] Methodi 00:00:00 00:00:[address] 3.430.2.7 0.2.7.3.698 Ho spita .3.201290 084.8 l .8 2022-08-27 2022-08-27 Telephone King 1.2.840.1 [id number] 2100 [id number] Methodi 00:00:00 00:00:[address] 3.430.2.7 Hospit a .3.242284 l .8 2022-08-16 2022-08-16 Outpatient KATTY SANTOS [facility] [id number] 09:26:37 14:04:08 Manuel ng 2022-08-10 2022-08-10 Telemedici June Villalba 1.2.840.1 [id number] Methodi 10:45:00 10:45:00 ne Tamiko-Miranda 68214.1.[address] 3.430.2.7 Hospit a .3.845680 l .8 2022-08-10 2022-08-10 Telemedici June Villalba 1.2.840.1 [id number] Methodi 10:45:00 10:45:00 ne Tamiko-Ju 70219.1.[address] 3.430.2.7 Hospit a .3.974948 l .8 2022-08-07 2022-08-07 Outpatient ELVIA GARNER MDA MDA [id number] 08:31:44 23:59:00 LETTYEDILMA Casaser so n 2022-08-07 2022-08-07 Outpatient ELVIA GARNER, MDA MDA [id number] 12:00:26 12:00:26 LETTYEDILMA Casaser so berenice 2022-08-07 2022-08-07 Outpatient ELVIA GARNER, MDA MDA [id number] 08:00:00 08:30:00 LETTYEDILMA Casasivelisse cartagena n 2022-08-06 2022-08-06 Telemedici Timmons, 1.2.840.1 [id number] Methodi 09:45:00 10:15:32 ne Lorena [place] 75857.1.1 864 s t 3.430.2.7 Hospit a .3.040681 l .8 2022-08-06 2022-08-06 Telemedici Timmons, 1.2.840.1 [id number] Methodi 09:45:00 10:15:32 ne Lorena [place] 61181.1.1 864 s t 3.430.2.7 Hospit a .3.530548 l .8 2022-08-03 2022-08-03 Outpatient LEEANNE BLAND MDA MDA [id number] 11:45:32 11:45:32 Manuel o berenice 2022-08-03 2022-08-03 Outpatient ELVIA MAHONEY, MDA MDA [id number] 11:33:13 11:33:13 ABDIAS Jackson o berenice 2022-07-06 2022-07-06 Outpatient LEEANNE BLAND MDA MDA [id number] 11:22:59 12:33:10 Manuel o berenice 2022-07-01 2022-07-01 Outpatient ELVIA GARNER, MDA MDA [id number] 07:45:00 23:59:00 LETTY Munoz so berenice 2022-07-01 2022-07-01 Outpatient KATTY SANTOS MDA MDA [id number] 09:47:12 11:13:51 Manuel o berenice 2022-06-16 2022-06-16 Outpatient ELVIA MAHONEY, MDA MDA [id number] 09:16:44 09:16:44 ABDIAS ng 2022-05-26 2022-05-26 Outpatient ELVIA GARNER, MDA MDA [id number] 07:00:00 23:59:00 LETTY ng 2022-05-13 2022-05-13 Telemedici VillalbaJune 1.2.840.1 [id number] Methodi 10:30:00 12:07:12 ne Tamiko-Ju 62954.1.[address] 3.430.2.7 Hospit a .3.356473 l .8 2022-05-13 2022-05-13 Telemedici VillalbaJune 1.2.840.1 [id number] Methodi 10:30:00 12:07:12 ne Tamiko-Ju 00536.1.[address] 3.430.2.7 Hospit a .3.561732 l .8 2022-05-10 2022-05-10 Outpatient ELVIA GARNER, MDA MDA [id number] 12:15:00 23:59:00 LETTY ng 2022-05-10 2022-05-10 Outpatient KATTY SANTOS MDA MDA [id number] 14:00:42 15:08:04 Manuel ng 2022-05-03 2022-05-03 Outpatient ELVIA GARNER, MDA MDA [id number] 13:20:00 23:59:00 LETTY ng 2022-05-03 2022-05-03 Outpatient ELVIA GARNER, MDA MDA [id number] 13:00:00 13:19:00 LETTY ng 2022-04-14 2022-04-14 Refill Deejay June 1.2.840.1 [id number] Methodi 00:00:00 00:00:00 Tamiko-Ju 89688.1.[address] 3.430.2.7 Hospit a .3.309853 l .8 2022-04-14 2022-04-14 Refill Deejay June 1.2.840.1 [id number] 849 [id number] Methodi 00:00:00 00:00:00 Tamiko-Ju 97324.1.[address] 3.430.2.7 Hospit a .3.644987 l .8 2022-04-08 2022-04-08 Outpatient ELVIA GARNER MDA MDA [id number] 12:16:12 23:59:00 LETTY Munoz mitzi n 2022-04-08 2022-04-08 Outpatient ELVIA GARNER MDA MDA [id number] 12:10:49 12:15:00 LETTY cartagena n 2022-03-29 2022-04-01 Emergency Marcel Rosales 1.2.840.1 [id number] Methodi 16:50:00 17:05:00 Sari Dexter 30877.1.[address] Negin Tan 3.430.2.7 [facility] .3.491076 Arturo Garcia .8 2022-03-29 2022-04-01 Emergency Marcel Rosales 1.2.840.1 [id number] Methodi 16:50:00 17:05:[address] Sari Dex[address] 25603.1.[address] Negin Tan 3.430.2.7 [facility] .3.505485 Arturo Garcia .8 2022-03-29 2022-03-29 Travel 1.2.840.1 1.2.844.024 3320 [id number] Methodi 00:00:00 00:00:[address] 3.430.2.7 0.2.7.3.698 Ho spita .3.501751 084.8 l .8 2022-03-29 2022-03-29 Travel 1.2.840.1 1.2.475.458 6434 716078 Methodi 00:00:00 00:00:[address] 3.430.2.7 0.2.7.3.698 Ho spita .3.579733 084.8 l .8 2022-03-11 2022-03-11 Outpatient EL KATTY OLIVEIRA [facility] [id number] 08:06:21 08:55:46 Manuel o n 2022-03-10 2022-03-10 Refill [facility], 1.2.840.1 [id number] Methodi 00:00:00 00:00:00 Maria Luisa 80671.1.[address] [place] 3.430.2.7 Hospit a .3.280846 l .8 2022-03-10 2022-03-10 Refill [facility], 1.2.840.1 [id number] 4053 Methodi 00:00:00 00:00:00 Maria Luisa 22841.1.[address] [place] 3.430.2.7 Hospit a .3.689910 l .8 2022-03-08 2022-03-08 Patient Felippi, 1.2.840.1 [id number] Methodi 00:00:00 00:00:00 Outreach Valentino 96940.1.[address] 3.430.2.7 Hospit a .3.645576 l .8 2022-03-08 2022-03-08 Patient Felippi, 1.2.840.1 [id number] Methodi 00:00:00 00:00:00 Outreach Valentino 79956.1.[address] 3.430.2.7 Hospit a .3.442674 l .8 2022-02-24 2022-03-05 [facility] Herlinda LeCedrick 1.2.840.1 [id number] Methodi 21:55:00 18:55:00 Encounter Shailesh Araiza 63666.1.[address] [facility] 3.430.2.7 Hospita Marlen Elkins .3.192122 l Khadra Hylton .8 Mirta Lomas 2022-02-24 2022-03-05 [facility] Herlinda LeCedrick 1.2.840.1 [id number] Methodi 21:55:00 18:55:00 Encounter Shailesh Araiza 91129.1.[address] [facility] 3.430.2.7 Hospita Marlen Elkins .3.186898 l Khadra Hylton .8 Mirta Lomas 2022-03-03 2022-03-03 Surgery [facility], 1.2.840.1 [id number] Methodi 08:30:00 09:20:00 Niko Mary 02232.1.[address] 3.430.2.7 Hospit a .3.697350 l .8 2022-03-03 2022-03-03 Surgery [facility], 1.2.840.1 [id number] Methodi 08:30:00 09:20:[address] Niko Mary [address]28.1.[address] 3.430.2.7 Hospit a .3.909804 l .8 2022-03-02 2022-03-02 Outpatient JUNE VILLALBA [facility] [id number] [place] 00:00:00 00:00:[address] 2022-02-23 2022-02-23 Travel 1.2.840.1 1.2.872.986 2153 154525 Methodi 00:00:00 00:00:[address] 3.430.2.7 0.2.7.3.698 Ho spita .3.433214 084.8 l .8 2022-02-23 2022-02-23 Telephone [facility], 1.2.840.1 [id number] Methodi 00:00:00 00:00:00 Maria Luisa 41944.1.[address] [place] 3.430.2.7 Hospit a .3.498631 l .8 2022-02-23 2022-02-23 Travel 1.2.840.1 1.2.053.429 0500 463738 Methodi 00:00:00 00:00:[address] 3.430.2.7 0.2.7.3.698 Ho spita .3.056010 084.8 l .8 2022-02-23 2022-02-23 Telephone Stu, 1.2.840.1 [id number] 2099 786888 Methodi 00:00:00 00:00:00 Maria Luisa 62174.1.[address] [facility] 3.430.2.7 Hospit a .3.772382 l .8 2022-02-11 2022-02-11 Outpatient FOG_Patel_A AOSM AOSM 641 [id number] Radha 00:00:00 00:00:00 Theodora 350582 [facility] 2022-01-05 2022-01-05 Outpatient ELVIA ROPER MDA MDA [id number] 13:31:37 23:59:00 SELAM ng 2022-01-04 2022-01-04 Outpatient KATTY SANTOS MDA MDA [id number] 09:54:07 09:54:07 Manuel ng 2022-01-03 2022-01-03 Outpatient ELVIA SOLOMON MDA MDA [id number] 09:27:06 23:59:00 JAKE ng 2022-01-03 2022-01-03 Outpatient ELVIA GARNER MDA MDA [id number] 09:00:00 09:26:00 LETTY ng 2021-12-24 2021-12-24 Telephone , 1.2.840.1 [id number] [id number] Methodi 00:00:00 00:00:[address] 3.430.2.7 Hospit a .3.563013 l .8 2021-12-21 2021-12-22 Outpatient [facility] [id number] Memoria 22:04:00 04:59:00 ishaan Ramirez l [facility] 2021-12-21 2021-12-21 Outpatient CARMELO, [facility] 2199 Memoria 17:04:00 23:59:00 HOLLY Baker [facility] 2021-12-01 2021-12-01 Telemedici June Villalba 1.2.840.1 [id number] Methodi 13:00:00 13:35:33 ne Venkata [address]2683.1.[address] 3.430.2.7 Hospit a .3.281574 l .8 2021-12-01 2021-12-01 Travel 1.2.840.1 1.2.128.951 3804 168397 Methodi 00:00:00 00:00:[address] 3.430.2.7 0.2.7.3.698 Ho spita .3.904282 084.8 l .8 2021-11-03 2021-11-03 Telemedici [place], 1.2.840.1 [id number] 591 [id number] Methodi 18:30:00 18:33:03 ne Rehan Frances 33481.1.[address] 3.430.2.7 Hospit a .3.881538 l .8 2021-10-15 2021-10-15 Refill Fausto, 1.2.840.1 [id number] 2398 Methodi 00:00:00 00:00:[address] 3.430.2.7 Hospit a .3.268647 l .8 2021-10-12 2021-10-12 Telephone [facility], 1.2.840.1 [id number] Methodi 00:00:00 00:00:[address] 3.430.2.7 Hospit a .3.599533 l .8 2021-09-22 2021-09-22 Telemedici [facility], 1.2.840.1 [id number] Methodi 15:45:00 16:18:03 ne Maria Luisa 45387.1.[address] [place] 3.430.2.7 Hospit a .3.305404 l .8 2021-09-21 2021-09-21 Telephone [facility], 1.2.840.1 [id number] 2099 [id number] Methodi 00:00:00 00:00:00 Maria Luisa 44022.1.[address] [place] 3.430.2.7 [facility] a .3.428842 l .8 2021-09-16 2021-09-16 Outpatient EL MARU, MDA MDA [id number] MD 08:59:27 23:59:00 ABDIAS ng 2021-09-15 2021-09-15 Outpatient ELVIA VARGASIN, MDA MDA [id number] 09:00:00 23:59:00 ABDIAS ng 2021-09-14 2021-09-14 Outpatient EL MARU, MDA MDA [id number] MD 09:00:00 23:59:00 ABDIAS ng 2021-09-11 2021-09-11 Outpatient EL MARU, MDA MDA [id number] MD 08:47:26 23:59:00 ABDIAS ng 2021-09-09 2021-09-09 Outpatient ELVIA MAHONEY, MDA MDA [id number] MD 08:55:00 23:59:00 ABDIAS ng 2021-09-08 2021-09-08 Outpatient ELVIA LaureanoABDOULAYEY, MDA MDA [id number] MD 09:15:00 23:59:00 SELAM ng 2021-09-08 2021-09-08 Outpatient ELVIA MAHONEY, MDA MDA [id number] 10:05:54 10:18:30 ABDIAS ng 2021-09-08 2021-09-08 Outpatient ELVIA MAHONEY, MDA MDA [id number] MD 08:55:00 09:14:00 ABDIAS ng 2021-09-07 2021-09-07 Outpatient ELVIA VARGASIN, MDA MDA [id number] MD 08:40:00 23:59:00 ABDIAS ng 2021-09-07 2021-09-07 Outpatient ELVIA GARNER, MDA MDA [id number] 09:36:44 13:33:40 LETTY ng 2021-09-07 2021-09-07 Outpatient ELVIA GARNER, MDA MDA [id number] 06:45:00 08:39:00 LETTY ng 2021-09-07 2021-09-07 Outpatient KATTY SANTOS MDA MDA [id number] 07:30:16 08:35:50 Manuel ng 2021-09-03 2021-09-03 Outpatient MELODY HARPER MDA MDA [id number] 08:03:28 23:59:00 Manuel ng 2021-09-03 2021-09-03 Outpatient ELVIA MAHONEY, MDA MDA [id number] MD 07:22:43 08:02:00 ABDIAS ng 2021-09-02 2021-09-02 Outpatient ELVIA MAHONEY, MDA MDA [id number] MD 08:15:00 23:59:00 ABDIAS ng 2021-09-01 2021-09-01 Outpatient ELVIA ROPER, MDA MDA [id number] 09:00:00 23:59:00 SELAM ng 2021-09-01 2021-09-01 Telemedic June Villalba 1.2.840.1 [id number] Methodi 13:45:00 [facility] 3.430.2.7 Hospit a .3.191357 l .8 2021-09-01 2021-09-01 Outpatient ELVIA MAHONEY, MDA MDA [id number] 09:31:26 09:41:59 ABDIAS ng 2021-09-01 2021-09-01 Outpatient ELVIA MAHONEY, MDA MDA [id number] MD 08:55:00 08:59:00 ABDIAS ng 2021-08-31 2021-08-31 Outpatient ELVIA GARNER, MDA MDA [id number] 09:58:52 23:59:00 LETTY ng 2021-08-31 2021-08-31 Outpatient ELVIA MAHONEY, MDA MDA [id number] MD 08:48:06 09:57:00 ABDIAS ng 2021-08-31 2021-08-31 Outpatient KATTY SANTOS MDA MDA [id number] 07:44:35 08:51:18 Manuel ng 2021-08-31 2021-08-31 Outpatient ELVIA GARNER, MDA MDA [id number] 06:15:00 08:47:00 LETTY ng 2021-08-28 2021-08-28 Outpatient EL OABDOULAYEY, MDA MDA [id number] 09:26:18 23:59:00 SELAM ng 2021-08-28 2021-08-28 Outpatient EL MARU, MDA MDA [id number] MD 08:59:33 09:25:00 ABDIAS Jackson o n 2021-08-27 2021-08-27 Outpatient EL MARU, MDA MDA [id number] MD 08:58:40 23:59:00 ABDIAS Casasers o n 2021-08-26 2021-08-26 Outpatient EL MARU, MDA MDA [id number] MD 08:40:00 23:59:00 ABDIAS Jackson o n 2021-08-25 2021-08-25 Outpatient EL MARU, MDA MDA [id number] MD 07:00:00 23:59:00 ABDIAS Jackson o n 2021-08-25 2021-08-25 Anesthesia Elias Castro [facility] [id number] 14:39:00 16:04:00 Event Sid Villanueva Nathen [facility] 2021-08-25 2021-08-25 Outpatient [facility] Surgery [id number] [facility]H 08:03:00 15:51:00 , [facility] 2021-08-25 2021-08-25 [facility] [id number] 08:03:00 15:51:00 Encounter , [facility] 2021-08-25 2021-08-25 Surgery [facility] [id number] 13:40:00 15:32:[address] , [facility] 2021-08-24 2021-08-24 Outpatient [facility] SLE [id number] SLE 08:25:23 23:59:00 2021-08-24 2021-08-24 [facility] [id number] 08:00:00 23:59:00 Encounter , [facility] 2021-08-24 2021-08-24 Outpatient EL MARU, MDA MDA [id number] MD 06:59:52 23:59:00 ABDIAS Casasers o berenice 2021-08-24 2021-08-24 Outpatient ELVIA GARNER MDA MDA [id number] 09:01:53 14:36:20 LETTY ng 2021-08-24 2021-08-24 Outpatient KATTY SANTOS MDA MDA [id number] 07:38:24 08:51:42 Manuel ng 2021-08-24 2021-08-24 Outpatient ELVIA GARNER MDA MDA [id number] 06:15:00 06:58:00 LETTY ng 2021-08-24 2021-08-24 Travel [facility] [id number] [facility] St 00:00:00 00:00:00 [facility] 2021-08-21 2021-08-21 Outpatient ELVIA MAHONEY MDA MDA [id number] 07:17:44 23:59:00 ABDIAS Casasers o berenice 2021-08-20 2021-08-[address] [facility] [id number] SLE 09:26:32 23:59:00 , [facility] 2021-08-20 2021-08-20 [facility] [id number] [facility] [address] 09:15:00 23:59:00 Encounter , [facility] 2021-08-20 2021-08-20 Outpatient ELVIA MAHONEY MDA MDA [id number] 07:17:28 23:59:00 ABDIAS Casasers o berenice 2021-08-20 2021-08-[address] [facility] [id number] SLE 08:10:33 09:14:00 , [facility] 2021-08-20 2021-08-20 [facility] [id number] [id number] [facility] [address] 08:10:33 09:14:00 Encounter , [facility] 2021-08-20 2021-08-20 Outpatient [facility] [id number] [facility]H 00:00:00 00:00:00 2021-08-20 2021-08-[address] [facility] [id number] [facility] 00:00:00 00:00:00 MARAL 2021-08-19 2021-08-19 Outpatient EL MARU, MDA MDA [id number] MD 07:18:38 23:59:00 ABDIAS ng 2021-08-18 2021-08-18 Outpatient EL OSeanLANGSTON, MDA MDA [id number] MD 08:06:36 23:59:00 SELAM ng 2021-08-18 2021-08-18 Outpatient EL MARU, MDA MDA [id number] MD 11:31:43 11:46:42 ABDIAS ng 2021-08-18 2021-08-18 Outpatient EL MARU, MDA MDA [id number] MD 07:31:00 08:05:00 ABDIAS ng 2021-08-18 2021-08-18 Outpatient [facility] [id number] SLE 00:00:00 00:00:00 2021-08-18 2021-08-18 Outpatient [facility] [id number] SLE 00:00:00 00:00:00 2021-08-17 2021-08-17 Outpatient EL GARNER, MDA MDA [id number] 09:23:22 23:59:00 LETTY ng 2021-08-17 2021-08-17 Outpatient EL MARU, MDA MDA [id number] MD 06:44:43 09:22:00 ABDIAS ng 2021-08-17 2021-08-17 Outpatient EL ROXANNE, TRISTINING MDA MDA [id number] 08:42:44 09:00:42 Manuel ng 2021-08-17 2021-08-17 Outpatient EL GARNER, MDA MDA [id number] 06:15:00 06:43:00 LETTY ng 2021-08-14 2021-08-14 Office [facility], 1.2.840.1 [id number] Methodi 11:15:00 12:02:24 Visit Maria Luisa 57104.1.[address] [facility] 3.430.2.7 Hospit a .3.788312 l .8 2021-08-13 2021-08-13 Outpatient EL SLE SLEH [id number] [facility]H 11:55:06 23:59:00 2021-08-13 2021-08-13 [facility] [id number] 10:20:00 23:59:00 [facility] 2021-08-13 2021-08-13 Outpatient ELVIA MAHONEY MDA MDA [id number] 07:30:20 23:59:00 ABDIAS Manuel o n 2021-08-13 2021-08-13 Travel [facility] [id number] [facility] 00:[facility]:00 00:00:00 [facility] 2021-08-13 2021-08-13 Orders [facility] [id number] 00:00:00 00:00:00 Only , [facility] 2021-08-13 2021-08-13 Refill , 1.2.840.1 [id number] Methodi 00:00:00 00:00:[address] 3.430.2.7 Hospit a .3.417410 l .8 2021-08-13 2021-08-13 Travel 1.2.840.1 1.2.238.220 5375 [id number] Methodi 00:00:00 00:00:[address] 3.430.2.7 0.2.7.3.698 Ho spita .3.482972 084.8 l .8 2021-08-13 2021-08-13 Telephone [facility], 1.2.840.1 [id number] Methodi 00:00:00 00:00:00 Maria Luisa 11329.1.[address] [place] 3.430.2.7 Hospit a .3.288689 l .8 2021-08-12 2021-08-12 Outpatient ELVIA MAHONEY MAXIME MDA [id number] 07:33:44 23:59:00 ABDIAS Manuel o n 2021-08-12 2021-08-12 [facility], 1.2.840.1 [id number] Methodi 00:00:00 00:00:00 Maria Luisa 43043.1.[address] Alexandraid 3.430.2.7 Hospit a .3.013304 l .8 2021-08-11 2021-08-11 Outpatient ELVIA LaureanoABDOULAYEY, MDA MDA [id number] 08:09:17 23:59:00 SELAM ng 2021-08-11 2021-08-11 Outpatient EL MARU, MDA MDA [id number] 13:46:43 13:57:23 ABDIAS ng 2021-08-11 2021-08-11 Outpatient ELVIA MAHONEY, MDA MDA [id number] 07:19:39 08:08:00 ABDIAS ng 2021-08-10 2021-08-10 Outpatient ELVIA GARNER, MDA MDA [id number] 11:04:53 23:59:00 LETTY ng 2021-08-10 2021-08-10 Outpatient ELVIA GARNER, MDA MDA [id number] 07:47:32 11:03:00 LETTY ng 2021-08-10 2021-08-10 Outpatient KATTY OLIVEIRA MDA MDA [id number] 09:11:58 10:58:53 Manuel ng 2021-08-10 2021-08-10 Outpatient ELVIA MAHONEY, MDA MDA [id number] 06:56:09 07:46:00 ABDIAS ng 2021-08-10 2021-08-10 [facility], 1.2.840.1 [id number] Methodi 00:00:00 00:00:00 Only Ariana 41326.1.[address] 3.430.2.7 Hospit a .3.481035 l .8 2021-08-07 2021-08-07 Outpatient ELVIA MAHONEY, MDA MDA [id number] MD 07:11:08 23:59:00 ABDIAS ng 2021-08-06 2021-08-06 Outpatient ELVIA MAHONEY, MDA MDA [id number] MD 07:11:45 23:59:00 ABDIAS ng 2021-08-05 2021-08-05 Outpatient ELVIA MAHONEY, MDA MDA [id number] MD 07:23:48 23:59:00 ABDIAS ng 2021-08-04 2021-08-04 Outpatient ELVIA ROPER, MDA MDA [id number] 08:59:37 23:59:00 SELAM ng 2021-08-04 2021-08-[facility] Villalba 1.2.840.1 [id number] Methodi 14:45:00 14:45:00 [facility] 33040.1.[address] 3.430.2.7 Hospit a .3.411874 l .8 2021-08-04 2021-08-04 Outpatient ELVIA MAHONEY, MDA MDA [id number] 13:34:43 14:01:23 ABDIAS ng 2021-08-04 2021-08-04 Outpatient ELVIA MAHONEY, MDA MDA [id number] MD 08:05:00 08:58:00 ABDIAS ng 2021-08-04 2021-08-04 [facility] 1.2.840.1 1.2.787.568 [id number] Methodi 00:00:00 00:00:[address] 3.430.2.7 0.2.7.3.698 Ho spita .3.144361 084.8 l .8 2021-08-03 2021-08-03 Outpatient ELVIA GARNER, MDA MDA [id number] 13:00:00 23:59:00 LETTY ng 2021-08-03 2021-08-03 Outpatient ELVIA MAHONEY, MDA MDA [id number] MD 12:55:00 12:59:00 ABDIAS ng 2021-08-03 2021-08-03 Outpatient ELVIA GARNER, MDA MDA [id number] MD 10:15:00 12:54:00 LETTY ng 2021-08-03 2021-08-03 Outpatient ELVIA OLIVEIRAKATTY MDA MDA [id number] 10:57:26 12:32:53 Manuel ng 2021-07-28 2021-07-28 Outpatient EL [facility] MDA MDA [id number] MD 12:41:00 23:59:00 Manuel SHAW 2021-07-27 2021-07-27 Outpatient EL MARU, MDA MDA [id number] MD 15:30:00 23:59:00 ABDIAS Casasers o n 2021-07-27 2021-07-27 Outpatient EL ROXANNE, KATTY MDA MDA [id number] MD 11:22:57 14:58:24 Manuel o n 2021-07-24 2021-07-24 Outpatient EL JUDSON, MDA MDA [id number] MD 13:00:00 23:59:00 SELAM Jackson o berenice 2021-07-24 2021-07-24 Outpatient EL ADIA, MDA MDA [id number] MD 05:41:00 12:59:00 MAHSA Jackson o berenice 2021-07-24 2021-07-24 Outpatient EL MARU, MDA MDA [id number] 11:43:32 11:53:19 ABDIAS Casasers o n 2021-07-23 2021-07-23 Outpatient EL ROXANNE, KATTY MDA MDA [id number] 18:38:00 23:59:00 Manuel o berenice 2021-07-23 2021-07-23 Outpatient EL PATYS, MDA MDA [id number] MD 15:13:31 15:13:31 LETTY ng 2021-07-22 2021-07-22 Outpatient EL ROXANNE, KATTY MDA MDA [id number] 12:29:49 23:59:00 Manuel o berenice 2021-07-22 2021-07-22 Outpatient EL NOHELIA, MDA MDA [id number] MD 09:26:20 10:33:54 MIKAELA Jackson o n 2021-07-20 2021-07-20 Outpatient EL KEREN, MDA Pulm Med [id number] 08:18:00 11:52:00 RAMAKRISHNA Jackson o berenice 2021-07-17 2021-07-17 Outpatient EL JENNY, MDA MDA [id number] 11:30:00 23:59:00 SPRING Jackson o n 2021-07-17 2021-07-17 Outpatient EL KEREN, MDA MDA [id number] 12:54:29 14:19:36 RAMAKRISHNA Manuel o n 2021-07-17 2021-07-17 Outpatient EL ROXANNE, KATTY MDA MDA [id number] 08:00:00 11:29:00 Manuel o berenice 2021-07-17 2021-07-17 Outpatient EL MARU, MDA MDA [id number] 07:44:27 07:44:27 MIRAVAHID Manuel o n 2021-07-13 2021-07-13 Outpatient EL LE, KATTY MDA MDA [id number] 11:57:46 23:59:00 Manuel o berenice 2021-07-13 2021-07-13 Outpatient EL ROXANNE, KATTY MDA MDA [id number] 10:23:51 11:52:46 Manuel o berenice 2021-07-01 2021-07-01 Emergency ER [place], [facility] [id number] 10:46:00 12:48:00 [facility] 2021-07-01 2021-07-01 Emergency ER [place], [facility] Emergency [id number] [facility] 10:46:00 12:48:[address] [facility] 2021-07-01 2021-07-01 Travel [facility] [id number] [facility] 00:00:00 00:00:00 [facility] 2021-06-22 2021-06-22 Outpatient VILLALBAJUNE [facility] [id number] [place] 00:00:00 00:00:[address] 2021-06-22 2021-06-22 Travel 1.2.840.1 1.2.843.867 [id number] Methodi 00:00:00 00:00:[address] 3.430.2.7 0.2.7.3.698 Ho spita .3.920883 084.8 l .8 2021-06-14 2021-06-16 Hospital ER Harika Torres [facility] [id number] 02:23:00 17:02:00 Encounter Mateo Riley Mayte [facility] 2021-06-14 2021-06-16 Inpatient ER STACY, MINORL Internal [id number] SLS 02:23:00 17:02:00 MAYTE Med 2021-06-15 2021-06-15 Telemedici June Villalba 1.2.840.1 [id number] Methodi 13:15:00 [facility]:30[facility] 3.430.2.7 Hospit a .3.697040 l .8 2021-06-10 2021-06-14 Outpatient TIANA JOHNS Surgery [id number] SLE 10:03:00 02:21:00 [facility] 2021-06-10 2021-06-14 [facility] [id number] 10:03:00 02:21:[address] [facility] 2021-06-10 2021-06-10 Surgery [facility], [facility] [id number] 11:30:00 12:30:00 Surgeon [facility] 2021-06-10 2021-06-10 Anesthesia Elias Castro [facility] [id number] [facility] 11:30:00 11:30:00 Event Halle Roberts [facility] 2021-06-10 2021-06-10 Outpatient [facility] [id number] [facility] 10:09:07 10:09:07 [facility] 2021-06-09 2021-06-09 Outpatient [facility] SLE [id number] [facility] 08:36:26 23:59:00 2021-06-09 2021-06-09 [facility] [id number] 08:10:00 23:59:00 Encounter [facility] 2021-06-09 2021-06-09 Travel [facility] [id number] [facility] 00:[facility]00 00:00:00 [facility] 2021-06-08 2021-06-08 Outpatient SLE SLE [id number] [facility] 14:15:07 14:15:07 2021-06-08 2021-06-08 Clinical Hill Johns [facility] [id number] [facility] 14:00:00 14:15:00 Support SamaraNeymar pearson [facility] 2021-06-08 2021-06-08 Travel [facility] [id number] [facility] 00:[facility]00 00:00:00 [facility] 2021-06-03 2021-06-03 Outside Maggi, [facility] [id number] 00:00:00 00:00:00 Orders [facility] 2021-04-22 2021-04-23 [facility] [id number] Memoria 11:46:00 00:47:00 Surgery [place] [address] l [facility] 2021-04-22 2021-04-22 Outpatient [facility] [id number] Memoria 05:46:00 18:47:00 NITO Baker [facility] 2021-04-14 2021-04-14 Telemedici June Villalba 1.2.840.1 [id number] Methodi 09:30:00 10:29:55 ne Venkata 72370.1.[address] 3.430.2.7 Hospit a .3.394021 l .8 2021-04-14 2021-04-14 Travel 1.2.840.1 1.2.550.483 [id number] [facility] 00:00:00 00:00:[address] 3.430.2.7 0.2.7.3.698 Ho spita .3.098599 084.8 l .8 2021-03-17 2021-03-17 Telemedici June Villalba 1.2.840.1 [id number] Methodi 10:00:00 10:53:50 ne Tamiko-Ju 45233.1.[address] 3.430.2.7 Hospit a .3.754421 l .8 2021-03-17 2021-03-17 Travel 1.2.840.1 1.2.008.196 [id number] [facility] 00:00:00 00:00:[address] 3.430.2.7 0.2.7.3.698 Ho spita .3.942234 084.8 l .8 2021-03-03 2021-03-03 Outpatient TARYN, [facility] [id number] [place] 00:00:00 00:00:00 MATEO [address] 2021-02-23 2021-02-23 Outpatient ELVIA MAHONEY MDA MDA [id number] 09:30:42 18:22:00 ABDIAS ng 2021-02-23 2021-02-23 Outpatient EL MAXIME MDA [id number] 09:18:11 09:26:24 Manuel ng 2021-02-11 2021-02-11 Outpatient Mineo_M [facility] [id number] [place] 10:32:00 10:32:00 [id number] 2021-02-10 2021-02-10 Outpatient Mineo_M [facility] [id number] [place] 09:50:00 09:50:00 [id number] [facility] 2021-01-30 2021-01-30 Outpatient ELVIA MAXIME MAHONEY MDA [id number] 22:19:58 22:19:58 ABDIAS ng 2021-01-13 2021-01-13 Outpatient JUNE VILLALBA [facility] [id number] [place] 00:00:00 00:00:[address] 2021-01-06 2021-01-06 Outpatient TARYN, [facility] [id number] [place] 00:00:00 00:00:00 MATEO [address] 2020-11-20 2020-12-20 OP Therapy nullFlavo [facility] [id number] Memoria 16:30:00 04:59:00 Patients r Bobby 44 l Saqib Baker 2020-12-16 2020-12-16 Outpatient JUNE VILLALBA [facility] [id number] [place] 00:00:00 00:00:[address] 2020-12-11 2020-12-11 Outpatient TARYN, [facility] [id number] [place] 00:00:00 00:00:00 MATEO [address] 2020-10-29 2020-10-29 Outpatient VILLALBA, JUNE [facility] [id number] [place] 00:00:00 00:00:[address] 2020-10-21 2020-10-21 Outpatient TARYN, [facility] [id number] [place] 00:00:00 00:00:00 MATEO [address] 2020-10-21 2020-10-21 Outpatient TARYN, [facility] [id number] [place] 00:00:00 00:00:00 MATEO [address] 2020-10-15 2020-10-15 Outpatient TARYN, [facility] [id number] [place] 00:00:00 00:00:00 MATEO [address] 2020-09-30 2020-09-30 Outpatient DREW, [facility] [id number] [place] 00:00:00 00:00:00 TODD [address] 2020-08-19 2020-09-18 OP Therapy nullFlavo SMR [id number] [facility] 14:00:00 04:59:00 Patients r Bobby 42 l Saqib Baker 2020-09-17 2020-09-17 Outpatient DREW, [facility] [id number] [place] 00:00:00 00:00:00 TODD [address] 2020-09-08 2020-09-08 Outpatient UMAH, [facility] [id number] [place] 00:00:00 00:00:00 MARIA LUISA [address] 2020-08-26 2020-08-26 Outpatient VILLALBA, JUNE [facility] [id number] [place] 00:00:00 00:00:[address] 2020-08-21 2020-08-21 Outpatient SHEKHAR, [facility] [id number] [place] 00:00:00 00:00:00 [address] 2020-07-15 2020-08-14 OP Therapy nullFlavo SMR [id number] [place] 21:00:00 05:59:00 Patients r Bobby 41 l Trace Samuel 2020-08-06 2020-08-06 Outpatient TARYN, [facility] [id number] [place] 00:00:00 00:00:00 MATEO 921 Method i 2020-07-31 2020-07-31 Outpatient [facility] [id number] [place] 00:00:00 00:00:00 061 Method i 2020-07-29 2020-07-29 Outpatient JUNE VILLALBA [facility] [id number] [place] 00:00:00 00:00:00 713 Method i 2020-07-24 2020-07-24 Outpatient DREW, [facility] [id number] [place] 00:00:00 00:00:00 TODD 876 Method i 2020-07-15 2020-07-15 Outpatient JUNE VILLALBA [facility] [id number] [place] 00:00:00 00:00:00 504 Method i 2020-06-12 2020-07-12 OP Therapy nullFlavo [facility] [id number] [place] 16:00:00 05:59:00 Patients r Bobby 40 l Saqib Baker 2020-07-08 2020-07-08 Outpatient DREW, [facility] [id number] [place] 00:00:00 00:00:00 TODD 310 Method i 2020-06-30 2020-06-30 Outpatient TARYN, [facility] [id number] [place] 00:00:00 00:00:00 MATEO 387 Method i 2020-06-24 2020-06-24 Outpatient TARYN, [facility] [id number] [place] 00:00:00 00:00:00 MATEO 223 Method i 2020-06-24 2020-06-24 Outpatient TARYN, [facility] [id number] [place] 00:00:00 00:00:00 MATEO 835 Method i 2020-06-10 2020-06-10 Outpatient ELVIA MOORE MDA Amy/Hep/Nu 1 [id number] 09:06:00 12:12:00 BISHOP ng 2020-06-09 2020-06-09 Outpatient ELVIA LAM MDA MDA [id number] 07:26:24 07:26:24 GEORGE ng 2020-06-08 2020-06-08 Outpatient ELVIA LAM, MDA MDA [id number] 15:02:07 15:37:53 GEORGE ng 2020-05-08 2020-06-06 OP Therapy nullFlavo SMR [id number] [place] 14:00:00 02:00:00 Patients ishaan Rosales 39 l Trace Samuel 2020-05-26 2020-05-26 Outpatient VILLALBA, JUNE [facility] [id number] [place] 00:00:00 00:00:[address] 2020-05-21 2020-05-21 Outpatient ELVIA MOORE, MDA MDA [id number] 13:16:25 14:00:26 BISHOP ng 2020-05-15 2020-05-15 Outpatient GRESSOT, [facility] [id number] [place] 00:00:00 00:00:00 LIA [address] 2020-05-15 2020-05-15 Outpatient GRESSOT, [facility] [id number] [place] 00:00:00 00:00:00 LIA [address] 2020-03-31 2020-04-30 OP Therapy nullFlavo SMR [id number] [place] 13:00:00 05:59:00 Patients ishaan Rosales 38 l Trace Samuel 2020-04-29 2020-04-29 Outpatient VILLALBA, JUNE [facility] [id number] [place] 00:00:00 00:00:[address] 2020-04-22 2020-04-22 Outpatient TARYN, [facility] [id number] [place] 00:00:00 00:00:00 MATEO [address] 2020-04-01 2020-04-01 Outpatient VILLALBA, JUNE [facility] [id number] [place] 00:00:00 00:00:[address] 2020-04-01 2020-04-01 Outpatient GRESSOT, [facility] [id number] [place] 00:00:00 00:00:00 LIA [address] 2020-02-28 2020-03-29 OP Therapy nullFlavo SMR [id number] [place] 17:40:00 04:59:00 Patients ishaan Rosales 37 l Trace Weatherly 2020-03-04 2020-03-04 Outpatient VILLALBA, JUNE [facility] [id number] [place] 00:00:00 00:00:[address] 2020-02-26 2020-02-26 Outpatient ELVIA MARTINEZ, MDA MDA [id number] 15:42:16 23:59:00 RIVKA Manuel o n 2020-02-26 2020-02-26 Outpatient ELVIA MILLER, MDA MDA [id number] 14:21:13 15:41:00 DEREK Manuel o n 2020-02-26 2020-02-26 Outpatient ELVIA MARTINEZ, MDA MDA [id number] 15:18:11 15:36:58 RIVKA Manuel o n 2020-02-26 2020-02-26 Outpatient ELVIA MILLER, MDA MDA [id number] 13:32:56 14:20:00 DEREK Casasers o n 2020-02-26 2020-02-26 Outpatient ELVIA MARTINEZ MDA MDA [id number] 11:59:25 13:22:27 RIVKA Manuel o n 2020-01-30 2020-01-30 Outpatient VILLALBA, JUNE [facility] [id number] [place] 00:00:00 00:00:00 114 Method i 2020-01-01 2020-01-01 Outpatient VILLALBA, JUNE [facility] [id number] [place] 00:00:00 00:00:[address] 2019-12-18 2019-12-18 Outpatient MATILDEOT, [place] [id number] [place] 00:00:00 00:00:00 LIA [address] 2019-12-14 2019-12-14 Outpatient GRESSOT, [facility] [id number] [place] 00:00:00 00:00:00 LIA [address] 2019-12-06 2019-12-06 Outpatient GRESSOT, [facility] [id number] [place] 00:00:00 00:00:00 LIA [address] 2019-12-04 2019-12-04 Outpatient VILLALBA, JUNE [facility] [id number] [place] 00:00:00 00:00:[address] 2019-11-06 2019-11-06 Outpatient VILLALBA, JUNE [facility] [id number] [place] 00:00:00 00:00:[address] 2019-10-16 2019-10-17 Outpatient GRESSOT, [facility] [id number] [place] 00:00:00 00:00:00 LIA [address] 2019-10-08 2019-10-08 Outpatient GRESSOT, [facility] [id number] [place] 00:00:00 00:00:00 LIA [address] 2019-10-08 2019-10-08 Outpatient VILLALBA, JUNE [facility] [id number] [place] 00:00:00 00:00:[address] 2019-09-12 2019-09-12 Outpatient VILLALBA, JUNE [facility] [id number] [place] 00:00:00 00:00:[address] 2019-08-17 2019-08-17 Outpatient RASHEED, [facility] [id number] [place] 00:00:00 00:00:00 REY [address] 2019-08-16 2019-08-16 Outpatient GRESSOT, [facility] [id number] [place] 00:00:00 00:00:00 LIA [address] 2019-08-16 2019-08-16 Outpatient GRESSOT, [facility] [id number] [place] 00:00:00 00:00:00 LIA [address] 2019-08-08 2019-08-08 Outpatient GRESSOT, [facility] [id number] [place] 00:00:00 00:00:00 LIA [address] 2019-08-08 2019-08-08 Outpatient GRESSOT, [facility] [id number] [place] 00:00:00 00:00:00 LIA [address] 2019-08-08 2019-08-08 Outpatient GRESSOT, [facility] [id number] [place] 00:00:00 00:00:00 LIA [address] 2019-08-08 2019-08-08 Outpatient GRESSOT, [facility] [id number] [place] 00:00:00 00:00:00 LIA [address] 2018-11-24 2018-11-24 Outpatient C JUNE VILLALBA [facility] [id number] [facility] 08:48:00 08:48:00 JUNE VILLALBA [id number] [facility] 2018-10-03 2018-10-03 Appointmen GUANAKO [facility] [id number] [place] 14:00:00 14:00:00 t; Nav VALDIVIA i, M.D. Medical Jose F Caputo M.D. 2018-08-29 2018-08-29 Appointjaun [facility] [id number] [place] 15:00:00 15:00:00 t; Isreal DOSS M.D. ans MICHAEL, M.D. 2018-08-08 2018-08-08 AppointDAMI [facility] [id number] [place] 14:30:00 14:30:00 t; MARCO ANTONIO [facility], M.D. Hermann ans M.D. Orthopedic and Spine [facility] 2018-08-01 2018-08-02 Outpatient nullFlavo MNA [id number] [place] 20:00:00 05:59:59 r Neurology 33 l [facility] 2018-07-31 2018-08-02 Phone nullFlavo MNA [id number] [place] 22:20:00 05:59:59 Message r Neurology 01 l [facility] 2018-07-12 2018-07-14 Phone nullFlavo MNA [id number] [place] 16:43:00 05:59:59 Message r Neurology 00 l [facility] 2018-05-02 2018-05-02 Recurring nullFlavo [facility] [id number] [place] 06:00:00 17:05:00 r [facility] 36 l [facility] 2017-09-28 2018-03-19 Outpatient C TARYN, [facility] [id number] [place] 15:15:00 23:59:00 MATEO [facility] 2018-02-20 2018-02-21 Day nullFlavo [facility] [id number] [place] 16:26:00 04:59:00 Surgery r Weatherly 68 l Orthopedic [facility] nn and Spine [facility] 2018-02-20 2018-02-20 AppointDAMI Del Castillo UTP [id number] [place] 12:30:00 12:30:00 t; DAVID CLARK D.O. P hysici JASON, ans D.OMica 2018-01-11 2018-01-11 AppointDAMI Del Castillo PM&R [facility] [id number] [place] 11:00:00 11:00:00 t; DAVID CLARK D.O. [facility] JASON, ans D.O. 2018-01-02 2018-01-02 [facility] UTP [id number] [place] 13:00:00 13:00:00 t; BRONSON GAFFNEY Phys ici GALLOZIvone-OT BRONSON Stratton M.D. 2017-11-09 2017-11-10 Outpatient nullFlavo [facility] [id number] [place] 17:58:00 04:59:00 r [facility] 66 l [facility] 2017-10-05 2017-10-06 Outpatient nullFlavo [facility] [id number] [place] 14:07:00 04:59:00 r [facility] 65 [facility] 2017-06-18 2017-08-29 [facility] [id number] [place] 10:24:00 23:59:00 [facility] 2016-07-07 2017-06-16 Outpatient Linda [facility] 1 [id number] [place] 07:45:00 10:23:00 [facility] 2017-05-11 2017-05-12 Outpatient nullFlavo [facility] [id number] [place] 16:01:00 05:59:00 r [facility] 63 l [facility] 2017-04-21 2017-04-21 [facility] UTP [id number] [place] 14:30:00 14:30:00 t; BRONSON GAFFNEY Phys ici GALLOZA-OT BRONSON Stratton M.D. 2017-04-14 2017-04-14 [facility] UTP [id number] [place] 14:30:00 14:30:00 t; BRONSON GAFFNEY Phys ici GALLOZA-OT BRONSON Stratton M.D. 2017-04-11 2017-04-11 Outpatient [facility] [id number] [facility] 11:16:01 11:16:01 2017-03-10 2017-03-11 Outpatient nullFlavo [facility] [id number] [place] 21:06:00 04:59:00 r [facility] 64 l [facility] 2017-02-09 2017-02-10 Outpatient nullFlavo [facility] [id number] [place] 15:29:00 04:59:00 r [facility] 57 l [facility] 2017-01-26 2017-01-27 Outpatient nullFlavo [facility] [id number] [facility] 21:22:00 04:59:00 r [facility] 61 l [facility] 2017-01-05 2017-01-06 Outpatient nullFlavo [facility] [id number] [place] 16:39:00 04:59:00 r [facility] 60 l [facility] 2016-12-15 2016-12-16 Outpatient nullFlavo [facility] [id number] [facility] 21:04:00 04:59:00 r [facility] 58 l [facility] 2016-11-10 2016-11-11 Outpatient nullFlavo [facility] [id number] [place] 14:11:00 04:59:00 r [facility] 56 l [facility] 2016-10-28 2016-10-29 Outpatient nullFlavo [facility] [id number] [facility] 19:52:00 04:59:00 r [facility] 52 l [facility] 2016-10-20 2016-10-21 Outpatient nullFlavo [facility] [id number] [place] 21:12:00 04:59:00 r [facility] 55 l [facility] 2016-10-14 2016-10-15 Outpatient nullFlavo [facility] [id number] [place] 20:29:00 04:59:00 r [facility] 54 l [facility] 2016-10-08 2016-10-09 Outpatient nullFlavo [facility] [id number] [facility] 21:11:00 04:59:00 r [facility] 53 l [facility] 2016-09-15 2016-09-16 Outpatient nullFlavo [facility] [id number] [facility] 18:47:00 04:59:00 r [facility] 51 l [facility] 2016-07-29 2016-07-30 Outpatient nullFlavo [facility] [id number] [facility] 20:26:00 05:59:00 r [facility] 50 l [facility] 2016-07-01 2016-07-02 Outpatient nullFlavo [facility] [id number] [facility] 19:41:00 05:59:00 r [facility] 49 l [facility] 2016-06-09 2016-06-15 Recurring nullFlavo [facility] [id number] [facility] 14:00:00 14:00:00 r [facility] 35 l [facility] 2016-06-11 2016-06-12 Outpatient nullFlavo [facility] [id number] [facility] 20:40:00 05:59:00 r [facility] 47 [facility] 2016-06-02 2016-06-03 Outpatient nullFlavo [facility] [id number] [facility] 20:42:00 05:59:00 r [facility] 44 [facility] 2016-05-20 2016-05-21 Outpatient nullFlavo [facility] [id number] [facility] 20:03:00 05:59:00 r [facility] 46 [facility] 2016-03-18 2016-03-19 Outpatient nullFlavo [facility] [id number] [facility] 18:28:00 04:59:00 r [facility] 45 [facility] 2016-03-03 2016-03-04 Outpatient nullFlavo [facility] [id number] [facility] 17:52:00 04:59:00 r [facility] 42 [facility] 2015-12-03 2015-12-04 Outpatient nullFlavo [facility] [id number] [facility] 15:59:00 04:59:00 r [facility] 41 [facility] 2015-08-27 2015-08-28 Outpatient nullFlavo [facility] [id number] [facility] 16:07:00 04:59:00 r [facility] 39 [facility] 2015-06-17 2015-06-18 Outpatient nullFlavo [facility] [id number] [facility] 20:00:00 05:59:00 r [facility] 36 [facility] 2015-05-14 2015-05-15 Outpatient nullFlavo [facility] [id number] [facility] 16:00:00 05:59:00 r [facility] 35 [facility] 2015-02-05 2015-02-06 Outpatient nullFlavo [facility] [id number] [facility] 19:30:00 04:59:00 r [facility] 34 l Samuel Weatherly [facility] 2014-11-06 2014-11-07 Outpatient nullFlavo [facility] [id number] [facility] 19:00:00 04:59:00 r Samuel 33 l BRAEDEN Baker 2014-08-07 2014-08-08 Outpatient nullFlavo [facility] [id number] [facility] 16:00:00 05:59:00 r Samuel 32 l BRAEDEN Baker 2014-05-09 2014-05-10 Outpatient nullFlavo [facility] [id number] [facility] 19:19:00 05:59:00 r Samuel 30 l BRAEDEN Baker 2014-03-07 2014-04-06 OP Therapy nullFlavo SMR [id number] [facility] 12:05:00 04:59:00 Patients r Gonzalo 34 tianna Baker 2014-02-08 2014-03-10 OP Therapy nullFlavo SMR [id number] [facility] 19:00:00 04:59:00 Patients r Gonzalo 33 tianna Baker 2014-02-05 2014-02-06 Outpatient nullFlavo [facility] [id number] [facility] 17:55:00 04:59:00 r Samuel 27 l BRAEDEN Baker 2014-01-14 2014-01-15 Outpatient nullFlavo [facility] [id number] [facility] 16:04:00 04:59:00 r Samuel 28 l BRAEDEN Baker 2013-12-18 2013-12-19 Outpatient nullFlavo [facility] [id number] [facility] 19:40:00 04:59:00 r Samuel 24 tianna Baker 2013-11-08 2013-12-08 Tots nullFlavo [facility] [id number] [facility] 13:00:00 04:59:00 Therapy r Samuel 31 l BRAEDEN Baker 2013-07-06 2013-08-05 Tots nullFlavo [facility] [id number] [facility] 14:00:00 05:59:00 Therapy r Samuel [id number] tianna Baker 2013-07-10 2013-07-10 Outpatient [facility] [id number] [facility] 11:11:00 11:11:00 19 tianna Baker 2013-06-04 2013-06-04 [id number] 11:09:00 11:09:00 28 tianna Baker 2013-03-27 2013-03-27 Outpatient MHIE MHIE [id number] [facility] 16:11:00 16:11:00 16 tianna Baker 2013-01-10 2013-01-10 Outpatient MHIE MHIE [id number] [facility] 09:16:00 09:16:00 15 tianna Baker 2012-12-19 2012-12-19 Outpatient MHIE MHIE [id number] [facility] 13:00:00 13:00:00 14 tianna Baker 2012-11-02 2012-12-01 TO MHIE MHIE [id number] [facility] 13:15:00 23:59:00 27 tianna Baker 2012-09-21 2012-10-20 TO MHIE MHIE [id number] [facility] 13:37:00 23:59:00 26 tianna Baker 2012-10-11 2012-10-11 Outpatient MHIE MHIE [id number] [facility] 08:00:00 08:00:00 13 tianna Baker 2012-08-24 2012-08-24 Outpatient MHIE MHIE [id number] [facility] 08:00:00 08:00:00 11 tianna Baker 2012-08-22 2012-08-22 TO MHIE MHIE [id number] [facility] 12:58:00 12:58:00 25 tianna Baker 2012-07-18 2012-07-18 TO MHIE MHIE [id number] [facility] 15:13:00 15:13:00 24 tianna Baker 2011-09-28 2011-09-28 TO MHIE MHIE [id number] [facility] 12:11:00 12:11:00 18 tianna Baker 2011-08-27 2011-08-27 TO MHIE MHIE [id number] [facility] 11:18:00 11:18:00 17 tianna Baker 2011-07-27 2011-07-27 TO MHIE MHIE [id number] [facility] 11:10:00 11:10:00 16 tianna Baker 2011-06-24 2011-06-24 TO MHIE MHIE [id number] [facility] 15:00:00 15:00:00 15 tianna Baker Results Test Description Test Time Test Comments Results Result Sourc e Comments CT CHEST W/O 2023-02-11 CONTRAST *WW* 16:54:12 [facility] : 1945 Sex: F EX AMINATION:CT CHEST W/O CONTRAST *WW*CLINICAL INDICATION:Female, 77 years old with Dyspnea; history of lung malignancy.TECHNIQUE: Axial non-contrast contiguous images were obtained through the chest followed by coronal and sagittal multiplanar reformations.One or more of the following dose-optimizing techniques was utilized for this exam: automated exposure control, adjustment of the mA and/or kV according to patient size, and/or use of iterative reconstruction technique.COMPARISON: NoneFINDINGS:Medical Devices: None.Lower Neck: Visualized thyroid gland is normal.Heart/Vessels: The heart is enlarged. No pericardial effusion is present. Aorta is normal in caliber and contour. Mild aortic atherosclerosis is present. Central pulmonary arteries are normal in size.Lymph Nodes: There are no enlarged thoracic lymph nodes.Lungs/Airways/P leura: Trachea and main bronchi are patent. There is a focal perihilar consolidative opacity seen in the right upper lobe (series 4, image 25) measuring approximately 4.0 x 2.4 cm. This likely represents patient's primary lung malignancy. Emphysematous changes are present in the lungs. No pneumothorax is identified. There is a large right pleural effusion present with underlying compressive atelectasis. No left pleural effusion is seen. Upper Abdomen: Visible upper abdominal structures appear unremarkable.Bones/So ft Tissues: No acute abnormality or suspicious bony lesion. The esophagus is normal. No soft tissue abnormality of the chest wall is demonstrated.IMPRESSI ON:1. Right upper lobe perihilar consolidative opacity likely representing patient's primary lung malignancy.2. Large right pleural effusion with underlying compressive atelectasis.3. Emphysematous changes in the lungs.Electronically signed by: Jaclyn Jonas MD 02/11/2023 4:54 PM CDT ECG 12 lead 2022-09-07 19:31:12 Test Item Value Reference Range Interpretation Comme nts Ventricular rate (test code = 253) 95 Atrial rate (test code = 255) 95 IN interval (test code = 266) 178 QRSD [...] of 27-AUG-2022 13:05,-No significant change was found- [facility] 12 [id number] 19:31:12 Test Item Value Reference Range Interpretation Comments Ventricular rate (test 95 code = 253) Atrial rate (test code 95 = 255) IN interval (test code 178 = 266) QRSD interval (test 84 code = 260) QT interval (test code 364 = 264) QTC interval (test 457 code = 265) P axis 1 (test code = 68 267) QRS axis 1 (test code 11 = 268) T wave axis (test code 160 = 270) EKG impression (test Normal sinus rhythm-ST code = 273) & T wave abnormality, consider inferolateral ischemia-In automated comparison with ECG of 27-AUG-2022 13:05,-No significant change was found- [facility] 12 [id number] 19:31:12 Test Item Value Reference Range Interpretation Comments Ventricular rate (test 95 code = 253) Atrial rate (test code 95 = 255) IN interval (test code 178 = 266) QRSD interval (test 84 code = 260) QT interval (test code 364 = 264) QTC interval (test 457 code = 265) P axis 1 (test code = 68 267) QRS axis 1 (test code 11 = 268) T wave axis (test code 160 = 270) EKG impression (test Normal sinus rhythm-ST code = 273) & T wave abnormality, consider inferolateral ischemia-In automated comparison with ECG of 27-AUG-2022 13:05,-No significant change was found- [facility]2023-04-04 01:40:00 Test Item Value Reference Range Interpretation Comments Urine culture (test SEE COMMENT Bacteriu mora screen code = 8522592) negative. [facility] [id number] 01:40:00 Test Item Value Reference Range Interpretation Comments Urine culture (test SEE COMMENT Bacteriu mora screen code = 6919650) negative. [facility]2023-04-04 01:40:00 Test Item Value Reference Range Interpretation Comments Urine culture (test SEE COMMENT Bacteriu mora screen code = 7896951) negative. [facility] ED Preliminary Interpretation - Not an [id number] 23:15:21 Test Item Value Reference Range Interpretation Comments PENNY (test code = PENNY) Matt Jorge MD 09/07/2022 12:57 [facility] ED Preliminary Interpretation - Not an OrderPerformed by: Matt Jorge MDAuthorized by: Matt Jorge MD ECG reviewed by ED Physician in the absence of a data entry representative: yes Previous ECG: Previous ECG: Compared to [...] EKG Lab Interpretation Abnormal (test code = 50979-3) [facility] ED Preliminary Interpretation - Not an [id number] 23:15:21 Test Item Value Reference Range Interpretation Comments PENNY (test code = PENNY) Matt Jorge MD 09/07/2022 12:57 [facility] ED Preliminary Interpretation - Not an OrderPerformed by: Matt Jorge MDAuthorized by: Matt Jorge MD ECG reviewed by ED Physician in the absence of a data entry representative: yes Previous ECG: Previous ECG: Compared to [...] EKG Lab Interpretation Abnormal (test code = 60126-7) [facility] ED Preliminary Interpretation - Not an [id number] 23:15:21 Test Item Value Reference Range Interpretation Comments PENNY (test code = PENNY) Matt Jorge MD 09/07/2022 12:57 [facility] ED Preliminary Interpretation - Not an OrderPerformed by: Matt Jorge MDAuthorized by: Matt Jorge MD ECG reviewed by ED Physician in the absence of a data entry representative: yes Previous ECG: Previous ECG: Compared to [...] EKG Lab Interpretation Abnormal (test code = 54983-0) [facility] [id number] 19:50:17 Test Item Value Reference Range Interpretation Comments SARS-CoV-2 (COVID-19) RNA Not detected [Presence] in Respiratory specimen by BOBY with probe detection (test code = 30713-0) Whether patient resides in a No congregate care setting (test code = 50127-4) Date and time of symptom onset Unknown (test code = 45570-5) Whether the patient was No hospitalized for condition of interest (test code = 49814-1) Whether the patient was admitted No to intensive care unit (ICU) for condition of interest (test code = 96632-9) Whether patient is employed in a No healthcare setting (test code = 64447-4) Whether the patient has symptoms No related to condition of interest (test code = 11281-6) status (test code = No 10214-7) [facility] RNA [Presence] in Respiratory specimen by BOBY with probe [id number] 03:00:50 Test Item Value Reference Range Interpretation Comments SARS-CoV-2 (COVID-19) RNA Not detected [Presence] in Respiratory specimen by BOBY with probe detection (test code = 15547-2) Whether patient is employed in a Unknown healthcare setting (test code = 49070-9) Whether the patient has symptoms Unknown related to condition of interest (test code = 19544-9) Whether the patient was Unknown hospitalized for condition of interest (test code = 87597-0) Whether the patient was admitted Unknown to intensive care unit (ICU) for condition of interest (test code = 62313-9) Whether patient resides in a Unknown congregate care setting (test code = 17626-1) status (test code = Unknown 60313-1) Date and time of symptom onset Unknown (test code = 82970-2) [facility] [id number] 02:13:00 Test Item Value Reference Range Interpretation Comments Urine culture (test SEE COMMENT Bacteriu mora screen code = 0301407) negative. [facility]2022-10-25 02:13:00 Test Item Value Reference Range Interpretation Comments Urine culture (test SEE COMMENT Bacteriu mora screen code = 5057448) negative. [facility]2022-10-25 02:13:00 Test Item Value Reference Range Interpretation Comments Urine culture (test SEE COMMENT Bacteriu mora screen code = 0771190) negative. [facility] [id number] 02:13:00 Test Item Value Reference Range Interpretation Comments Urine culture (test SEE COMMENT Bacteriu mora screen code = 1084399) negative. [facility] [facility] 02:13:00 Test Item Value Reference Range Interpretation Comments Urine culture (test SEE COMMENT Bacteriu mora screen code = 1619149) negative. [facility]2022-09-24 18:44:00 Test Item Value Reference Range Interpretation Comments Urine culture (test SEE COMMENT Bacteriu mora screen code = 8028151) negative. [facility]2022-09-24 18:44:00 Test Item Value Reference Range Interpretation Comments Urine culture (test SEE COMMENT Bacteriu mora screen code = 7532606) negative. [facility]2022-09-24 18:44:00 Test Item Value Reference Range Interpretation Comments Urine culture (test SEE COMMENT Bacteriu mora screen code = 0858399) negative. [facility] (w Contrast, Strain and 3D if needed)2022-02-25 23:07:02 Test Item Value Reference Interpretation Comments Range EF (test code = 18 % 54-74 A 8809972834) IVS,d (test code = 0.78 cm 0.6-0.9 0816640688) LVPWD,d (test code = 0.79 cm 0.60-1.19 2334091130) LV,s (test code = 4.11 cm 0689608219) LVOT Diam,S (test 1.98 cm code = 4137963690) LV ALONZO VOL (test 90.60 ml 46-106 code = 0013138842) LV SYS VOL (test 74.59 ml 14-42 A code = 5764419622) MV Peak E Kendall (test 0.74 m/s code = 7103639134) MV Peak A Kendall (test 0.19 m/s code = 0226997173) E/A ratio (test code 3.89 See_Comment A [Autom ated = 2542177081) message] The system which generated this result transmitted reference range : <=0.8. The reference range was not used to interpret this result as normal/abnormal . E wave decelartion 111.65 See_Comment A [Automat ed time (test code = message] T he 1724604873) system which generated this result transmitted reference range : 200 msec. The reference range was not used to interpret this result as normal/abnormal . LV,d (test code = 4.46 cm 2411158428) IVS/LVPW,2D (test 0.99 code = 4008548302) LV EF,2D (test code 21.90 % = 7000309779) LV FS Cube 2D (test 7.91 code = 2517701700) LV FS Teich 2D (test 7.91 code = 4658093765) LV SV Teich 2D (test 16.01 ml code = 1551806215) LV Vol s Teich PSAX 74.59 ml (test code = 9781299022) LVOT stroke volume 0.31 cm3 (test code = 2760708107) Left Atrium 2.85 cm See_Comment [Automated Dimension Anterior message] The (test code = system which 5257173914) generated this result transmitted reference range : <=3.8. The reference range was not used to interpret this result as normal/abnormal . LA Vol MOD A4C (test 22.26 ml code = 6931099196) LA area s A4C (test 11.14 cm2 code = 4039399030) LVOT area (test code 3.08 cm2 = 1100585892) LVOT Vmax (test code 0.63 m/s = 1302794917) AoV Mean PG (test 1.00 See_Comment [Automate d code = 0900400775) message] The system which generated this result transmitted reference range : 20 mmHg. The reference range was not used to interpret this result as normal/abnormal . AoV Peak PG (test 1.75 mmHg code = 9859851327) AV LVOT peak 1.43 mmHg gradient (test code = 0386155281) AoV Area, Vmax (test 2.79 cm2 See_Comment [Autom ated code = 5078927068) message] The system which generated this result transmitted reference range : >=1.5. The reference range was not used to interpret this result as normal/abnormal . LVOT VTI (CM) (test 10.00 cm code = 9354167180) AoV Vmax (test code 0.68 m/s = 0049607157) AoV Vmn (test code = 0.47 m/s 6423272665) AoV Area, VTI (test 2.62 cm2 code = 5457262533) Velocity Ratio 0.93 m/s (V1/V2) (test code = 4689) MV mean gradient 1.67 See_Comment [Automated (test code = message] The 5501161000) system which generated this result transmitted reference range : 5 mmHg. The reference range was not used to interpret this result as normal/abnormal . MR peak grad (test 2.75 mmHg code = 4958376785) MV stenosis pressure 24.92 ms See_Comment [Autom ated 1/2 time (test code message] The = 2461367366) system which generated this result transmitted reference range : <=150. The reference range was not used to interpret this result as normal/abnormal . MV E A ratio (test 3.35 code = 9536526525) MV valve area p 1/2 8.83 cm2 method (test code = 9412296148) MV VTI Tips (test 0.11 m code = 5081294476) MV Vmax (test code = 0.88 m 7185839078) E prime lat (test 0.07 code = 1808328124) E prime sept (test 0.06 code = 8600342143) RVSP (test code = 39.20 See_Comment [Automate d 4164136446) message] The system which generated this result transmitted reference range : 40.00 mmHg. The reference range was not used to interpret this result as normal/abnormal . RA pressure (test 10.00 mmHg code = 3163121840) TR pk grad (test 29.20 mmHg code = 1879937939) TR Vpeak (test code 2.96 m/s = 9360069915) RVSP (TR) (test code 39.20 mmHg = 0060995123) RVOT Vmax (test code 0.25 m/s = 2626467312) PV Pk Grad (test 0.92 See_Comment [Automated code = 1079495825) message] The system which generated this result transmitted reference range : 36 mmHg. The reference range was not used to interpret this result as normal/abnormal . RVOT pk grad (test 0.25 mmHg code = 1773748168) PV VMAX (test code = 0.48 m/s See_Comment [Autom ated 8114134524) message] The system which generated this result transmitted reference range : <=3. The reference range was not used to interpret this result as normal/abnormal . Ao Root Diameter 2.84 cm See_Comment [Automated (test code = message] The 7571349364) system which generated this result transmitted reference range : <=3.99. The reference range was not used to interpret this result as normal/abnormal . Ao Root Diameter 2.84 cm (test code = 7056733590) Ascending aorta 2.79 cm (test code = 1072766155) Pred METS R1 (test 4.63 code = 2217579444) Pred Exer Dur R1 6.02 (test code = 2274066071) MV Decel slope (test 6.64 m/s2 code = 1400461672) LV vol s cube 2D 69.36 ml (test code = 6542350543) LV vol d cube 2D 88.81 ml (test code = 3655491333) LV SV Cube 2D (test 19.45 ml code = 9271553526) Calc MPHR (test code 142.53 bpm = 0255783622) 85 of MPHR (test 121.15 code = 1093569181) MAX Pred HR (test 142.53 code = 5742940579) LVOT mean grad (test 0.76 mmHg code = 4907294889) Aov area Vmn (test 2.75 cm2 code = 5224484976) MV AE ratio (test 0.30 code = 8695257327) LVOT Vmn (test code 0.41 = 5166811616) MR Vmax (test code = 4.09 m/s 8820914940) AoV VTI (test code = 0.12 m 7831289190) LVOT VTI (test code 0.10 m = 0187461859) PENNY (test code = PENNY) Left Ventricle: [...] obtained. Lab Interpretation Abnormal (test code = 26743-3) [facility], (w Contrast, Strain and 3D if needed)2022-02-25 23:07:02 Test Item Value Reference Interpretation Comments Range EF (test code = 18 % 54-74 A 6280182126) IVS,d (test code = 0.78 cm 0.6-0.9 7214830240) LVPWD,d (test code = 0.79 cm 0.60-1.19 3489582793) LV,s (test code = 4.11 cm 6826042278) LVOT Diam,S (test 1.98 cm code = 5638038266) LV ALONZO VOL (test 90.60 ml 46-106 code = 5907135483) LV SYS VOL (test 74.59 ml 14-42 A code = 2507648233) MV Peak E Kendall (test 0.74 m/s code = 4262822321) MV Peak A Kendall (test 0.19 m/s code = 9095146551) E/A ratio (test code 3.89 See_Comment A [Autom ated = 2596284022) message] The system which generated this result transmitted reference range : <=0.8. The reference range was not used to interpret this result as normal/abnormal . E wave decelartion 111.65 See_Comment A [Automat ed time (test code = message] T he 6191503351) system which generated this result transmitted reference range : 200 msec. The reference range was not used to interpret this result as normal/abnormal . LV,d (test code = 4.46 cm 6742883996) IVS/LVPW,2D (test 0.99 code = 7767535126) LV EF,2D (test code 21.90 % = 8712621513) LV FS Cube 2D (test 7.91 code = 4631414792) LV FS Teich 2D (test 7.91 code = 4820493917) LV SV Teich 2D (test 16.01 ml code = 9152908757) LV Vol s Teich PSAX 74.59 ml (test code = 7103015304) LVOT stroke volume 0.31 cm3 (test code = 8102963654) Left Atrium 2.85 cm See_Comment [Automated Dimension Anterior message] The (test code = system which 8094295550) generated this result transmitted reference range : <=3.8. The reference range was not used to interpret this result as normal/abnormal . LA Vol MOD A4C (test 22.26 ml code = 6031819545) LA area s A4C (test 11.14 cm2 code = 5976541319) LVOT area (test code 3.08 cm2 = 6051379127) LVOT Vmax (test code 0.63 m/s = 5655082309) AoV Mean PG (test 1.00 See_Comment [Automate d code = 9253277114) message] The system which generated this result transmitted reference range : 20 mmHg. The reference range was not used to interpret this result as normal/abnormal . AoV Peak PG (test 1.75 mmHg code = 4540359189) AV LVOT peak 1.43 mmHg gradient (test code = 5503167299) AoV Area, Vmax (test 2.79 cm2 See_Comment [Autom ated code = 5476219379) message] The system which generated this result transmitted reference range : >=1.5. The reference range was not used to interpret this result as normal/abnormal . LVOT VTI (CM) (test 10.00 cm code = 4817435911) AoV Vmax (test code 0.68 m/s = 8215013316) AoV Vmn (test code = 0.47 m/s 0346024007) AoV Area, VTI (test 2.62 cm2 code = 4664780465) Velocity Ratio 0.93 m/s (V1/V2) (test code = 4689) MV mean gradient 1.67 See_Comment [Automated (test code = message] The 2959758820) system which generated this result transmitted reference range : 5 mmHg. The reference range was not used to interpret this result as normal/abnormal . MR peak grad (test 2.75 mmHg code = 4426162905) MV stenosis pressure 24.92 ms See_Comment [Autom ated 1/2 time (test code message] The = 9760500024) system which generated this result transmitted reference range : <=150. The reference range was not used to interpret this result as normal/abnormal . MV E A ratio (test 3.35 code = 5439691082) MV valve area p 1/2 8.83 cm2 method (test code = 2607928115) MV VTI Tips (test 0.11 m code = 4244200623) MV Vmax (test code = 0.88 m 6993838116) E prime lat (test 0.07 code = 1424365703) E prime sept (test 0.06 code = 8115707276) RVSP (test code = 39.20 See_Comment [Automate d 6929293563) message] The system which generated this result transmitted reference range : 40.00 mmHg. The reference range was not used to interpret this result as normal/abnormal . RA pressure (test 10.00 mmHg code = 4917954628) TR pk grad (test 29.20 mmHg code = 1424315086) TR Vpeak (test code 2.96 m/s = 5683666704) RVSP (TR) (test code 39.20 mmHg = 2602693176) RVOT Vmax (test code 0.25 m/s = 5745639446) PV Pk Grad (test 0.92 See_Comment [Automated code = 4568814127) message] The system which generated this result transmitted reference range : 36 mmHg. The reference range was not used to interpret this result as normal/abnormal . RVOT pk grad (test 0.25 mmHg code = 6872082881) PV VMAX (test code = 0.48 m/s See_Comment [Autom ated 6119351343) message] The system which generated this result transmitted reference range : <=3. The reference range was not used to interpret this result as normal/abnormal . Ao Root Diameter 2.84 cm See_Comment [Automated (test code = message] The 3002901602) system which generated this result transmitted reference range : <=3.99. The reference range was not used to interpret this result as normal/abnormal . Ao Root Diameter 2.84 cm (test code = 0531537149) Ascending aorta 2.79 cm (test code = 6878012075) Pred METS R1 (test 4.63 code = 1411266842) Pred Exer Dur R1 6.02 (test code = 8873872807) MV Decel slope (test 6.64 m/s2 code = 0157235460) LV vol s cube 2D 69.36 ml (test code = 2708966248) LV vol d cube 2D 88.81 ml (test code = 8136412914) LV SV Cube 2D (test 19.45 ml code = 9627200028) Calc MPHR (test code 142.53 bpm = 8707508720) 85 of MPHR (test 121.15 code = 6379426943) MAX Pred HR (test 142.53 code = 2424981968) LVOT mean grad (test 0.76 mmHg code = 7988840215) Aov area Vmn (test 2.75 cm2 code = 3999069867) MV AE ratio (test 0.30 code = 5114513695) LVOT Vmn (test code 0.41 = 0606189666) MR Vmax (test code = 4.09 m/s 2275075514) AoV VTI (test code = 0.12 m 5918754570) LVOT VTI (test code 0.10 m = 4605505488) PENNY (test code = PENNY) Left Ventricle: [...] obtained. Lab Interpretation Abnormal (test code = 86775-5) [address]2022-09-22 17:48:24 Test Item Value Reference Range Interpretation Comments Ventricular rate (test code = 253) Atrial rate (test code = 255) IN interval (test code = 266) QRSD interval [...] Daley MD (2085) on 02/25/2022 12:48:[address]2022-09-22 17:48:24 Test Item Value Reference Range Interpretation Comments Ventricular rate (test code = 253) Atrial rate (test code = 255) IN interval (test code = 266) QRSD interval [...] Daley MD (2085) on 02/25/2022 12:48:21 PM [address]2022-09-22 17:48:24 Test Item Value Reference Range Interpretation Comments Ventricular rate (test code = 253) Atrial rate (test code = 255) IN interval (test code = 266) QRSD interval [...] Daley MD (2085) on 02/25/2022 12:48:21 [address]2022-09-22 17:48:24 Test Item Value Reference Range Interpretation Comments Ventricular rate (test code = 253) Atrial rate (test code = 255) IN interval (test code = 266) QRSD interval [...] Daley MD (2085) on 02/25/2022 12:48:[address]2022-09-22 17:48:24 Test Item Value Reference Range Interpretation Comments Ventricular rate (test code = 253) Atrial rate (test code = 255) IN interval (test code = 266) QRSD interval [...] Daley MD (2085) on 02/25/2022 12:48:21 PM [address]2022-09-22 17:48:24 Test Item Value Reference Range Interpretation Comments Ventricular rate (test code = 253) Atrial rate (test code = 255) IN interval (test code = 266) QRSD interval [...] Daley MD (2085) on 02/25/2022 12:48:[address]2022-09-22 17:48:24 Test Item Value Reference Range Interpretation Comments Ventricular rate (test code = 253) Atrial rate (test code = 255) IN interval (test code = 266) QRSD interval [...] Daley MD (2085) on 02/25/2022 12:48:21 PM [facility] [id number] 17:48:24 Test Item Value Reference Range Interpretation Comments Ventricular rate (test code = 253) Atrial rate (test code = 255) IN interval (test code = 266) QRSD interval [...] Daley MD (2085) on 02/25/2022 12:48:[address] [facility] [Presence] in Respiratory specimen by BOBY with probe [id number] 06:49:34 Test Item Value Reference Range Interpretation Comments SARS-CoV-2 (COVID-19) RNA Not detected [Presence] in Respiratory specimen by OBBY with probe detection (test code = 56673-0) Whether patient is employed in a No healthcare setting (test code = 31055-6) Whether the patient has symptoms Yes related to condition of interest (test code = 53979-4) Whether the patient was No hospitalized for condition of interest (test code = 25424-2) Whether the patient was admitted No to intensive care unit (ICU) for condition of interest (test code = 81752-4) Whether patient resides in a No congregate care setting (test code = 47916-4) status (test code = No 17194-6) Date and time of symptom onset Unknown (test code = 28661-8) [facility], NON-SPECIFIC, UP TO 1 HOUR 2021-08-25 15:55:00Reason for exam:->[facility]igeminal Neural[facility] : 1945 Sex: FAn imaging unit was utilized for this procedure. No radiologist interpretation was requested. Refer to the EMR for findings. Refer to PACS for any patient radiation dose information.SARS-CoV2/RT-PCR (Asymptomatic ONLY)2021-08-20 18:55:08 Test Item Value Reference Range Interpretation Comments SARS-COV2/RT-PCR Negative Not Detected, (test code = Negative, See 27380-7) external report for linked test SARS[facility]COV-2 [facility] (test code = 79337-5) PENNY (test code = Negative result for [...] of the Act. Fact Sheet for Healthcare Providers:https://www.[employer]/sites/default/f lilly/product/documents/F act_Sheet_HC_Providers_L taf_XPBC-VxM-7.pdf Fact Sheet for Healthcare Patients:https://www.[employer]sites/default/fi les/product/documents/Fa ct_Sheet_Patients_Lyra_S ARS-CoV-2.pdf Performing Laboratory:[facility], [place] [address] [place], [place] [address]ARS-CoV2/RT-PCR (Asymptomatic ONLY)2021-08-20 18:55:08 Test Item Value Reference Range Interpretation Comments SARS-COV2/RT-PCR Negative Not Detected, (test code = Negative, See 57783-1) external report for linked test SARS-COV-2 [facility] PERFORMING LAB (test code = 20050-3) PENNY (test code = Negative result for [...] of the Act. Fact Sheet for Healthcare Providers:https://www.[employer]/sites/default/f lilly/product/documents/F act_Sheet_HC_Providers_L lgo_UQQO-MlY-7.pdf Fact Sheet for Healthcare Patients:https://www.[employer]sites/default/fi les/product/documents/Fa ct_Sheet_Patients_Lyra_S ARS-CoV-2.pdf Performing Laboratory:[facility], [place] [address] [place], [place] [address]ARS-CoV2/RT-PCR (Asymptomatic ONLY)2021-08-20 18:55:08 Test Item Value Reference Range Interpretation Comments SARS-COV2/RT-PCR Negative Not Detected, (test code = Negative, See 79569-3) external report for linked test SARS-COV-2 [facility] PERFORM[facility] LAB (test code = 66629-2) PENNY (test code = Negative result for [...] of the Act. Fact Sheet for Healthcare Providers:https://www.[employer]/sites/default/f lilly/product/documents/F act_Sheet_HC_Providers_L nuf_DUST-KuP-0.pdf Fact Sheet for Healthcare Patients:https://www.[employer]sites/default/fi les/product/documents/Fa ct_Sheet_Patients_Lyra_S ARS-CoV-2.pdf Performing Laboratory:[facility] [place] [address] [facility]2021-08-20 18:55:08 Test Item Value Reference Range Interpretation Comments SARS-COV2/RT-PCR Negative Not Detected, (test code = Negative, See 31333-6) external report for linked test SARS-COV-2 [facility] PERFORM[facility] (test code = 28884-2) PENNY (test code = Negative result for [...] of the Act. Fact Sheet for Healthcare Providers:https://www.[employer]/sites/default/f lilly/product/documents/F act_Sheet_HC_Providers_L xgp_XDBX-EpR-3.pdf Fact Sheet for Healthcare Patients:https://www.[employer]sites/default/fi les/product/documents/Fa ct_Sheet_Patients_Lyra_S ARS-CoV-2.pdf Performing Laboratory:[facility] [place] [address] [facility] (As[facility]omatic ONLY)2021-08-20 18:55:08 Test Item Value Reference Range Interpretation Comments SARS-COV2/RT-PCR Negative Not Detected, (test code = Negative, See 12795-5) external report for linked test SARS-COV-2 [facility] PERFORM[facility] LAB (test code = 63649-6) PENNY (test code = Negative result for this PNENY) test determines that SARS-CoV-2 RNA was not [...] of the Act. Fact Sheet for Healthcare Providers:https://www.[employer]/sites/default/f lilly/product/documents/F act_Sheet_HC_Providers_L lqu_COLB-DaY-1.pdf Fact Sheet for Healthcare Patients:https://www.[employer]sites/default/fi les/product/documents/Fa ct_Sheet_Patients_Lyra_S ARS-CoV-2.pdf Performing Laboratory:[facility], [place] [address] [place], [place] [address]ARS-CoV2/RT-PCR (Asymptomatic ONLY)2021-08-20 18:55:08 Test Item Value Reference Range Interpretation Comments SARS-COV2/RT-PCR Negative Not Detected, (test code = Negative, See 91070-6) external report for linked test SARS-COV-2 [facility] PERFORM[facility] LAB (test code = 52457-6) PENNY (test code = Negative result for [...] of the Act. Fact Sheet for Healthcare Providers:https://www.[employer]/sites/default/f lilly/product/documents/F act_Sheet_HC_Providers_L puq_LJPA-FhF-6.pdf Fact Sheet for Healthcare Patients:https://www.[employer]sites/default/fi les/product/documents/Fa ct_Sheet_Patients_Lyra_S ARS-CoV-2.pdf Performing Laboratory:[facility] [place] [address] [facility] ([facility] ONLY)2021-08-20 18:55:08 Test Item Value Reference Range Interpretation Comments SARS-COV2/RT-PCR Negative Not Detected, (test code = Negative, See 16647-9) external report for linked test SARS-COV-2 [facility] PERFORM[facility] (test code = 73482-2) PENNY (test code = Negative result for [...] of the Act. Fact Sheet for Healthcare Providers:https://www.[employer]el[employer]/sites/default/f lilly/product/documents/F act_Sheet_HC_Providers_L djv_IJLF-GaZ-7.pdf Fact Sheet for Healthcare Patients:https://www.[employer]com/sites/default/fi les/product/documents/Fa ct_Sheet_Patients_Lyra_S ARS-CoV-2.pdf Performing Laboratory:[facility] [place] [address] [facility] (Asymptomatic ONLY)2021-08-20 18:55:08 Test Item Value Reference Range Interpretation Comments SARS-COV2/RT-PCR Negative Not Detected, (test code = Negative, See 87468-4) external report for linked test SARS-COV-2 [facility] PERFORMING [facility] (test code = 59641-7) PENNY (test code = Negative result for [...] of the Act. Fact Sheet for Healthcare Providers:https://www.[employer]el[employer].com/sites/default/f lilly/product/documents/F act_Sheet_HC_Providers_L gaf_VCKL-XnO-3.pdf Fact Sheet for Healthcare Patients:https://www.[employer]com/sites/default/fi les/product/documents/Fa ct_Sheet_Patients_Lyra_S ARS-CoV-2.pdf Performing Laboratory:[place] [address] [place] [address] [facility] (Asymptomatic ONLY)2021-08-20 18:55:08 Test Item Value Reference Range Interpretation Comments SARS-COV2/RT-PCR Negative Not Detected, (test code = Negative, See 68455-9) external report for linked test SARS-COV-2 [facility] PERFORM[facility] (test code = 74549-1) PENNY (test code = Negative result for [...] of the Act. Fact Sheet for Healthcare Providers:https://www.[employer].com/sites/default/f lilly/product/documents/F act_Sheet_HC_Providers_L jok_LUIS-WbU-1.pdf Fact Sheet for Healthcare Patients:https://www.[employer].com/sites/default/fi les/product/documents/Fa ct_Sheet_Patients_Lyra_S ARS-CoV-2.pdf Performing Laboratory:[facility] [place] [address] [facility] (Asymptomatic ONLY)2021-08-20 18:55:08 Test Item Value Reference Range Interpretation Comments SARS-COV2/RT-PCR Negative Not Detected, (test code = Negative, See 81646-5) external report for linked test SARS-COV-2 [facility] PERFORM[facility] (test code = 51667-4) PENNY (test code = Negative result for [...] of the Act. Fact Sheet for Healthcare Providers:https://www.[employer].com/sites/default/f lilly/product/documents/F act_Sheet_HC_Providers_L srf_OTEJ-RhU-0.pdf Fact Sheet for Healthcare Patients:https://www.[employer].com/sites/default/fi les/product/documents/Fa ct_Sheet_Patients_Ly_S ARS-CoV-2.pdf Performing Laboratory:[facility] [place] [address] [facility] ([facility])2021-08-20 18:55:08 Test Item Value Reference Range Interpretation Comments SARS-COV2/RT-PCR (test Negative Not Detected, Negative, code = 2796811) See external report for linked test SARS-COV-2 PERFORMING LAB [facility] (test code = 8470261) Negative result for this test determines that [...] of the Act.Fact Sheet for Healthcare Prov iders:https://www.[employer]/sites/default/files/product/documents/Fact_Sheet_HC _Jtyaabyjz_Iezh_FKEO-HoQ-5.pdfFact Sheet for Healthcare Patients:https://www.[employer]/sites/default/files/product/docume nts/Buke_Ifrrr_Fattugnk_Edlz_HLEN-JqR-1.pdfPerforming Laboratory:[facility] [place], [place] [address]Eryufvypci w/Microscopic + Reflex to [id number] 12:35:39 Test Item Value Reference Range Interpretation Comments Color, UA (test code Light Yellow = 5778-6) Clarity, UA (test Clear code = 5767-9) Specific [place], UA 1.009 1.001-1.035 (test code = 5811-5) pH, UA (test code = 7.0 5.0-8.0 5803-2) Protein, UA (test 10 mg/dL Negative A code = 19544-9) Glucose, UA (test Negative Negative code = 365) Ketones, UA (test Negative Negative code = 2514-8) Bilirubin, UA (test Negative Negative code = 71742-4) Blood, UA (test code Negative Negative = 56590-4) Nitrite, UA (test Negative Negative code = 5802-4) Leukocytes, UA (test Negative Negative code = 5799-2) Urobilinogen, UA 0.2 mg/dL 0.2-1.0 (test code = 66102-6) RBC, UA (test code = <1 See_Comment [Autom ated 56363-5) message] The system which generated this result [...] Bacteria, UA (test None Seen code = 06515-7) Squam Epithel, UA 1 See_Comment [Automate d (test code = 52274-2) messag e] The system which generated this result transmit perlita reference range : /HPF. The reference range was not used to interpret this result as normal/abnormal . Crystals, Urine (test None Seen code = 03764-2) Amorphous Crystals Rare (test code = 74991-4) Specimen Source (test code = 2795) PENNY (test code = PENNY) [employer] ID - [auto]Com[employer] Systems Officer ID - tech Lab Interpretation Abnormal (test code = 75746-6) [facility] 2021-08-20 12:35:39 Test Item Value Reference Range Interpretation Comments Color, UA (test code Light Yellow = 5778-6) Clarity, UA (test Clear code = 5767-9) Specific [place], UA 1.009 1.001-1.035 (test code = 5811-5) pH, UA (test code = 7.0 5.0-8.0 5803-2) Protein, UA (test 10 mg/dL Negative A code = 01179-1) Glucose, UA (test Negative Negative code = 365) Ketones, UA (test Negative Negative code = 2514-8) Bilirubin, UA (test Negative Negative code = 02899-5) Blood, UA (test code Negative Negative = 30415-3) Nitrite, UA (test Negative Negative code = 5802-4) Leukocytes, UA (test Negative Negative code = 5799-2) Urobilinogen, UA 0.2 mg/dL 0.2-1.0 (test code = 70693-3) RBC, UA (test code = <1 See_Comment [Autom ated 60103-6) message] The system which generated this result [...] Bacteria, UA (test None Seen code = 31066-5) Squam Epithel, UA 1 See_Comment [Automate d (test code = 95667-1) messag e] The system which generated this result transmit perlita reference range : /HPF. The reference range was not used to interpret this result as normal/abnormal . Crystals, Urine (test None Seen code = 45061-2) Amorphous Crystals Rare (test code = 09480-6) Specimen Source (test code = 2795) PENNY (test code = PENNY) [employer] ID - [auto][employer] Officer ID - tech Lab Interpretation Abnormal (test code = 89187-2) [facility] 2021-08-20 12:35:39 Test Item Value Reference Range Interpretation Comments Color, UA (test code Light Yellow = 5778-6) Clarity, UA (test Clear code = 5767-9) Specific [place], UA 1.009 1.001-1.035 (test code = 5811-5) pH, UA (test code = 7.0 5.0-8.0 5803-2) Protein, UA (test 10 mg/dL Negative A code = 47381-6) Glucose, UA (test Negative Negative code = 365) Ketones, UA (test Negative Negative code = 2514-8) Bilirubin, UA (test Negative Negative code = 66807-1) Blood, UA (test code Negative Negative = 93169-0) Nitrite, UA (test Negative Negative code = 5802-4) Leukocytes, UA (test Negative Negative code = 5799-2) Urobilinogen, UA 0.2 mg/dL 0.2-1.0 (test code = 72449-1) RBC, UA (test code = <1 See_Comment [Autom ated 00930-4) message] The system which generated this result [...] Bacteria, UA (test None Seen code = 39824-1) Squam Epithel, UA 1 See_Comment [Automate d (test code = 01656-6) messag e] The system which generated this result transmit perlita reference range : /HPF. The reference range was not used to interpret this result as normal/abnormal . Crystals, Urine (test None Seen code = 91920-0) Amorphous Crystals Rare (test code = 72853-7) Specimen Source (test code = 2795) PENNY (test code = PENNY) [employer] Officer ID - [auto][employer] Systems Officer ID - tech Lab Interpretation Abnormal (test code = 71293-0) [facility] 2021-08-20 12:35:39 Test Item Value Reference Range Interpretation Comments Color, UA (test code Light Yellow = 5778-6) Clarity, UA (test Clear code = 5767-9) Specific [place], UA 1.009 1.001-1.035 (test code = 5811-5) pH, UA (test code = 7.0 5.0-8.0 5803-2) Protein, UA (test 10 mg/dL Negative A code = 09326-3) Glucose, UA (test Negative Negative code = 365) Ketones, UA (test Negative Negative code = 2514-8) Bilirubin, UA (test Negative Negative code = 07216-8) Blood, UA (test code Negative Negative = 76789-8) Nitrite, UA (test Negative Negative code = 5802-4) Leukocytes, UA (test Negative Negative code = 5799-2) Urobilinogen, UA 0.2 mg/dL 0.2-1.0 (test code = 18728-1) RBC, UA (test code = <1 See_Comment [Autom ated 32725-2) message] The system which generated this result [...] Bacteria, UA (test None Seen code = 57478-2) Squam Epithel, UA 1 See_Comment [Automate d (test code = 60551-5) messag e] The system which generated this result transmit perlita reference range : /HPF. The reference range was not used to interpret this result as normal/abnormal . Crystals, Urine (test None Seen code = 05537-5) Amorphous Crystals Rare (test code = 67110-6) Specimen Source (test code = 2795) PENNY (test code = PENNY) [employer] Officer ID - [auto]Com[employer] Systems Officer ID - tech Lab Interpretation Abnormal (test code = 27647-4) [facility] 2021-[facility]20 12:35:39 Test Item Value Reference Range Interpretation Comments Color, UA (test code Light Yellow = 5778-6) Clarity, UA (test Clear code = 5767-9) Specific [place], UA 1.009 1.001-1.035 (test code = 5811-5) pH, UA (test code = 7.0 5.0-8.0 5803-2) Protein, UA (test 10 mg/dL Negative A code = 57105-7) Glucose, UA (test Negative Negative code = 365) Ketones, UA (test Negative Negative code = 2514-8) Bilirubin, UA (test Negative Negative code = 51054-0) Blood, UA (test code Negative Negative = 97330-9) Nitrite, UA (test Negative Negative code = 5802-4) Leukocytes, UA (test Negative Negative code = 5799-2) Urobilinogen, UA 0.2 mg/dL 0.2-1.0 (test code = 36521-3) RBC, UA (test code = <1 See_Comment [Autom ated 90256-1) message] The system which generated this result [...] Bacteria, UA (test None Seen code = 60141-4) Squ[place] Epithel, UA 1 See_Comment [Automate d (test code = 61978-8) messag e] The system which generated this result transmit perlita reference range : /HPF. The reference range was not used to interpret this result as normal/abnormal . Crystals, Urine (test None Seen code = 77895-2) Amorphous Crystals Rare (test code = 85721-6) Specimen Source (test code = 2795) PENNY (test code = PENNY) [employer] Officer ID - [auto]Com[employer] Systems Officer ID - tech Lab Interpretation Abnormal (test code = 45539-4) [facility] Culture 2021-08-20 12:35:39 Test Item Value Reference Range Interpretation Comments Color, UA (test code Light Yellow = 5778-6) Clarity, UA (test Clear code = 5767-9) Specific [place], UA 1.009 1.001-1.035 (test code = 5811-5) pH, UA (test code = 7.0 5.0-8.0 5803-2) Protein, UA (test 10 mg/dL Negative A code = 49204-9) Glucose, UA (test Negative Negative code = 365) Ketones, UA (test Negative Negative code = 2514-8) Bilirubin, UA (test Negative Negative code = 26341-9) Blood, UA (test code Negative Negative = 15551-7) Nitrite, UA (test Negative Negative code = 5802-4) Leukocytes, UA (test Negative Negative code = 5799-2) Urobilinogen, UA 0.2 mg/dL 0.2-1.0 (test code = 86522-0) RBC, UA (test code = <1 See_Comment [Autom ated 41910-3) message] The system which generated this result [...] Bacteria, UA (test None Seen code = 94201-2) Squ[place] Epithel, UA 1 See_Comment [Automate d (test code = 20259-0) messag e] The system which generated this result transmit perlita reference range : /HPF. The reference range was not used to interpret this result as normal/abnormal . Crystals, Urine (test None Seen code = 97577-9) Amorphous Crystals Rare (test code = 11173-2) Specimen Source (test code = 2795) PENNY (test code = PENNY) [employer] Officer ID - [auto]Com[employer] Systems Officer ID - tech Lab Interpretation Abnormal (test code = 43124-8) [facility] Ref[facility] Culture 2021-08-20 12:35:39 Test Item Value Reference Range Interpretation Comments Color, UA (test code Light Yellow = 5778-6) Clarity, UA (test Clear code = 5767-9) Specific [place], UA 1.009 1.001-1.035 (test code = 5811-5) pH, UA (test code = 7.0 5.0-8.0 5803-2) Protein, UA (test 10 mg/dL Negative A code = 59326-3) Glucose, UA (test Negative Negative code = 365) Ketones, UA (test Negative Negative code = 2514-8) Bilirubin, UA (test Negative Negative code = 83447-8) Blood, UA (test code Negative Negative = 18183-9) Nitrite, UA (test Negative Negative code = 5802-4) Leukocytes, UA (test Negative Negative code = 5799-2) Urobilinogen, UA 0.2 mg/dL 0.2-1.0 (test code = 55980-1) RBC, UA (test code = <1 See_Comment [Autom ated 83581-1) message] The system which generated this result [...] Bacteria, UA (test None Seen code = 65477-0) Squ[place] Epithel, UA 1 See_Comment [Automate d (test code = 09787-6) messag e] The system which generated this result transmit perlita reference range : /HPF. The reference range was not used to interpret this result as normal/abnormal . Crystals, Urine (test None Seen code = 41816-9) Amorphous Crystals Rare (test code = 21503-2) Specimen Source (test code = 2795) PENNY (test code = PENNY) [employer] Officer ID - [auto]Combat Systems Officer ID - tech Lab Interpretation Abnormal (test code = 84083-2) [facility] Reflex [facility] Culture 2021-08-20 12:35:39 Test Item Value Reference Range Interpretation Comments Color, UA (test code Light Yellow = 5778-6) Clarity, UA (test Clear code = 5767-9) Specific [place], UA 1.009 1.001-1.035 (test code = 5811-5) pH, UA (test code = 7.0 5.0-8.0 5803-2) Protein, UA (test 10 mg/dL Negative A code = 55244-7) Glucose, UA (test Negative Negative code = 365) Ketones, UA (test Negative Negative code = 2514-8) Bilirubin, UA (test Negative Negative code = 88734-0) Blood, UA (test code Negative Negative = 41100-0) Nitrite, UA (test Negative Negative code = 5802-4) Leukocytes, UA (test Negative Negative code = 5799-2) Urobilinogen, UA 0.2 mg/dL 0.2-1.0 (test code = 92409-1) RBC, UA (test code = <1 See_Comment [Autom ated 45007-7) message] The system which generated this result [...] Bacteria, UA (test None Seen code = 82625-4) Squam Epithel, UA 1 See_Comment [Automate d (test code = 72683-5) messag e] The system which generated this result transmit perlita reference range : /HPF. The reference range was not used to interpret this result as normal/abnormal . Crystals, Urine (test None Seen code = 23184-9) Amorphous Crystals Rare (test code = 81808-9) Specimen Source (test code = 2795) PENNY (test code = PENNY) [employer] Officer ID - [auto]Com[employer] Systems Officer ID - tech Lab Interpretation Abnormal (test code = 47627-0) [facility] Reflex [facility] Culture 2021-08-20 12:35:39 Test Item Value Reference Range Interpretation Comments Color, UA (test code Light Yellow = 5778-6) Clarity, UA (test Clear code = 5767-9) Specific [place], UA 1.009 1.001-1.035 (test code = 5811-5) pH, UA (test code = 7.0 5.0-8.0 5803-2) Protein, UA (test 10 mg/dL Negative A code = 68341-4) Glucose, UA (test Negative Negative code = 365) Ketones, UA (test Negative Negative code = 2514-8) Bilirubin, UA (test Negative Negative code = 99852-8) Blood, UA (test code Negative Negative = 83288-5) Nitrite, UA (test Negative Negative code = 5802-4) Leukocytes, UA (test Negative Negative code = 5799-2) Urobilinogen, UA 0.2 mg/dL 0.2-1.0 (test code = 43591-9) RBC, UA (test code = <1 See_Comment [Autom ated 78918-6) message] The system which generated this result [...] Bacteria, UA (test None Seen code = 38507-0) Squ[place] Epit[place], UA 1 See_Comment [Automate d (test code = 13335-0) messag e] The system which generated this result transmit perlita reference range : /HPF. The reference range was not used to interpret this result as normal/abnormal . Crystals, Urine (test None Seen code = 46539-2) Amorphous Crystals Rare (test code = 31571-8) Specimen Source (test code = 2795) PENNY (test code = PENNY) [employer] Officer ID - [auto]Combat Systems Officer ID - tech Lab Interpretation Abnormal (test code = 35733-1) [facility] Reflex [facility] Culture 2021-08-20 12:35:39 Test Item Value Reference Range Interpretation Comments Color, UA (test code Light Yellow = 5778-6) Clarity, UA (test Clear code = 5767-9) Specific [place], UA 1.009 1.001-1.035 (test code = 5811-5) pH, UA (test code = 7.0 5.0-8.0 5803-2) Protein, UA (test 10 mg/dL Negative A code = 19897-0) Glucose, UA (test Negative Negative code = 365) Ketones, UA (test Negative Negative code = 2514-8) Bilirubin, UA (test Negative Negative code = 27328-8) Blood, UA (test code Negative Negative = 52949-0) Nitrite, UA (test Negative Negative code = 5802-4) Leukocytes, UA (test Negative Negative code = 5799-2) Urobilinogen, UA 0.2 mg/dL 0.2-1.0 (test code = 35498-6) RBC, UA (test code = <1 See_Comment [Autom ated 91733-6) message] The system which generated this result [...] Bacteria, UA (test None Seen code = 27424-7) Squam Epithel, UA 1 See_Comment [Automate d (test code = 84574-9) messag e] The system which generated this result transmit perlita reference range : /HPF. The reference range was not used to interpret this result as normal/abnormal . Crystals, Urine (test None Seen code = 53469-1) Amorphous Crystals Rare (test code = 53749-4) Specimen Source (test code = 2795) PENNY (test code = PENNY) [employer] Officer ID - [auto]Com[employer] Systems Officer ID - tech Lab Interpretation Abnormal (test code = 43818-2) [facility] [id number] 12:35:39 Test Item Value Reference Range Interpretation [...] = 1584) SOURCE(BEAKER) (test code = 2795) [employer] Officer ID - [auto]Com[employer] Systems Officer ID - techRAD, CHEST, 2 [id number] 10:36:00 Reason for exam:->trigeminal neuralgia[facility] 1945 Sex: FFINAL [...] MDReport Verified Date/Time: 08/20/2021 10:36:51 Reading Location: [facility] Radiology Reading Room Type and screen, [id number] 10:09:00 Test Item Value Reference Range Interpretation Comments ABO/RH AUTOMATED (BEAKER) (test O POSITIVE code = 2260) Ab Scrn (test code = 890-4) NEGATIVE [facility], [id number] 10:09:00 Test Item Value Reference Range Interpretation Comments ABO/RH AUTOMATED (BEAKER) (test O POSITIVE code = 2260) Ab Scrn (test code = 890-4) NEGATIVE [facility], [id number] 10:09:00 Test Item Value Reference Range Interpretation Comments ABO/RH AUTOMATED (BEAKER) (test O POSITIVE code = 2260) Ab Scrn (test code = 890-4) NEGATIVE [facility], [id number] 10:09:00 Test Item Value Reference Range Interpretation Comments ABO/RH AUTOMATED (BEAKER) (test O POSITIVE code = 2260) Ab Scrn (test code = 890-4) NEGATIVE [facility], [id number] 10:09:00 Test Item Value Reference Range Interpretation Comments ABO/RH AUTOMATED (BEAKER) (test O POSITIVE code = 2260) Ab Scrn (test code = 890-4) NEGATIVE [facility], [id number] 10:09:00 Test Item Value Reference Range Interpretation Comments ABO/RH AUTOMATED (BEAKER) (test O POSITIVE code = 2260) Ab Scrn (test code = 890-4) NEGATIVE [facility], [id number] 10:09:00 Test Item Value Reference Range Interpretation Comments ABO/RH AUTOMATED (BEAKER) (test O POSITIVE code = 2260) Ab Scrn (test code = 890-4) NEGATIVE [facility], [id number] 10:09:00 Test Item Value Reference Range Interpretation Comments ABO/RH AUTOMATED (BEAKER) (test O POSITIVE code = 2260) Ab Scrn (test code = 890-4) NEGATIVE [facility], [id number] 10:09:00 Test Item Value Reference Range Interpretation Comments ABO/RH AUTOMATED (BEAKER) (test O POSITIVE code = 2260) Ab Scrn (test code = 890-4) NEGATIVE [facility], [id number] 10:09:00 Test Item Value Reference Range Interpretation Comments ABO/RH AUTOMATED (BEAKER) (test O POSITIVE code = 2260) Ab Scrn (test code = 890-4) NEGATIVE [facility] Metabolic [id number] 09:45:23 Test Item Value Reference Range Interpretation Comments Sodium (test code = 138 meq/L 163-771 9374-2) Potassium (test 3.6 meq/L 3.5-5.1 code = 2823-3) Chloride (test code 104 meq/L 98-107 = 2075-0) CO2 (test code = 24 meq/L 22-29 8-9) BUN (test code = 11 mg/dL 7-21 3094-0) Creatinine (test 0.83 mg/dL 0.57-1.25 code = 2160-0) Glucose (test code 92 mg/dL 70-105 = 2345-7) Calcium (test code 9.5 mg/dL 8.4-10.2 = 98219-2) EGFR (test code = 81 mL/min/1.73 [place] [address]-6) NOT ACCURATE CREATININE CLEARANCE IN PREDICTING GLOMERULAR FILTRATION RATE . ESTIMATED GFR I S NOT APPLICABLE FOR DIALYSIS PATIEN PENNY (test code = Combat Systems Officer ID - BS PENNY) [facility] Metabolic [id number] 09:45:23 Test Item Value Reference Range Interpretation Comments Sodium (test code = 138 meq/L 591-432 9085-2) Potassium (test 3.6 meq/L 3.5-5.1 code = 2823-3) Chloride (test code 104 meq/L 98-107 = 2075-0) CO2 (test code = 24 meq/L -2028-02) BUN (test code = 11 mg/dL - 3094-0) Creatinine (test 0.83 mg/dL 0.57-1.25 code = 2160-0) Glucose (test code 92 mg/dL 70-105 = 2345-7) Calcium (test code 9.5 mg/dL 8.4-10.2 = 72195-4) EGFR (test code = 81 mL/min/1.[place] [address]-9) NOT ACCURATE CREATININE CLEARANCE IN PREDICTING GLOMERULAR FILTRATION RATE . ESTIMATED GFR I S NOT APPLICABLE FOR DIALYSIS PATIEN TS. PENNY (test code = [employer] Systems Officer ID - BS PENNY) [facility] Metabolic [id number] 09:45:23 Test Item Value Reference Range Interpretation Comments Sodium (test code = 138 meq/L 726-263 7335-2) Potassium (test 3.6 meq/L 3.5-5.1 code = 2823-3) Chloride (test code 104 meq/L 98-107 = 2075-0) CO2 (test code = 24 meq/L 2028-02) BUN (test code = 11 mg/dL 12-24 3094-0) Creatinine (test 0.83 mg/dL 0.57-1.25 code = 2160-0) Glucose (test code 92 mg/dL 70-105 = 2345-7) Calcium (test code 9.5 mg/dL 8.4-10.2 = 34437-7) EGFR (test code = 81 mL/min/1.[place] [address]-2) NOT ACCURATE CREATININE CLEARANCE IN PREDICTING GLOMERULAR FILTRATION RATE . ESTIMATED GFR I S NOT APPLICABLE FOR DIALYSIS PATIEN TS. PENNY (test code = [employer] Systems Officer ID - BS PENNY) [facility] Metabolic [id number] 09:45:23 Test Item Value Reference Range Interpretation Comments Sodium (test code = 138 meq/L 523-772 0002-2) Potassium (test 3.6 meq/L 3.5-5.1 code = 2823-3) Chloride (test code 104 meq/L 98-107 = 2075-0) CO2 (test code = 24 meq/L -2027-) BUN (test code = 11 mg/dL - 3094-0) Creatinine (test 0.83 mg/dL 0.57-1.25 code = 2160-0) Glucose (test code 92 mg/dL 70-105 = 2345-7) Calcium (test code 9.5 mg/dL 8.4-10.2 = 52245-5) EGFR (test code = 81 mL/min/1.[place] [address]-2) NOT ACCURATE CREATININE CLEARANCE IN PREDICTING GLOMERULAR FILTRATION RATE . ESTIMATED GFR I S NOT APPLICABLE FOR DIALYSIS PATIEN PENNY (test code = [employer] Systems Officer ID - BS PENNY) [facility] Metabolic [id number] 09:45:23 Test Item Value Reference Range Interpretation Comments Sodium (test code = 138 meq/L 749-824 8580-2) Potassium (test 3.6 meq/L 3.5-5.1 code = 2823-3) Chloride (test code 104 meq/L 98-107 = 2075-0) CO2 (test code = 24 meq/L -2028-02) BUN (test code = 11 mg/dL 12-24 3094-0) Creatinine (test 0.83 mg/dL 0.57-1.25 code = 2160-0) Glucose (test code 92 mg/dL 70-105 = 2345-7) Calcium (test code 9.5 mg/dL 8.4-10.2 = 38557-7) EGFR (test code = 81 mL/min/1.[place] [address]-9) NOT ACCURATE CREATININE CLEARANCE IN PREDICTING GLOMERULAR FILTRATION RATE . ESTIMATED GFR I S NOT APPLICABLE FOR DIALYSIS PATIEN TS. PENNY (test code = [employer] Systems Officer ID - BS PENNY) [facility] Metabolic [id number] 09:45:23 Test Item Value Reference Range Interpretation Comments Sodium (test code = 138 meq/L 341-272 9192-2) Potassium (test 3.6 meq/L 3.5-5.1 code = 2823-3) Chloride (test code 104 meq/L 98-107 = 2075-0) CO2 (test code = 24 meq/L -2027-) BUN (test code = 11 mg/dL 7- 3094-0) Creatinine (test 0.83 mg/dL 0.57-1.25 code = 2160-0) Glucose (test code 92 mg/dL 70-105 = 2345-7) Calcium (test code 9.5 mg/dL 8.4-10.2 = 97997-6) EGFR (test code = 81 mL/min/1.[place] [address]-4) NOT ACCURATE CREATININE CLEARANCE IN PREDICTING GLOMERULAR FILTRATION RATE . ESTIMATED GFR I S NOT APPLICABLE FOR DIALYSIS PATIEN TS. PENNY (test code = [employer] Systems Officer ID - BS PENNY) [facility] Metabolic [id number] 09:45:23 Test Item Value Reference Range Interpretation Comments Sodium (test code = 138 meq/L 606-649 6247-2) Potassium (test 3.6 meq/L 3.5-5.1 code = 2823-3) Chloride (test code 104 meq/L 98-107 = 2075-0) CO2 (test code = 24 meq/L 2027-) BUN (test code = 11 mg/dL - 3094-0) Creatinine (test 0.83 mg/dL 0.57-1.25 code = 2160-0) Glucose (test code 92 mg/dL 70-105 = 2345-7) Calcium (test code 9.5 mg/dL 8.4-10.2 = 41751-7) EGFR (test code = 81 mL/min/1.73 [place] [address]-0) NOT ACCURATE CREATININE CLEARANCE IN PREDICTING GLOMERULAR FILTRATION RATE . ESTIMATED GFR I S NOT APPLICABLE FOR DIALYSIS PATIEN TS. PENNY (test code = [employer] Systems Officer ID - BS PENNY) [facility] Metabolic [id number] 09:45:23 Test Item Value Reference Range Interpretation Comments Sodium (test code = 138 meq/L 545-257 4299-2) Potassium (test 3.6 meq/L 3.5-5.1 code = 2823-3) Chloride (test code 104 meq/L 98-107 = 2075-0) CO2 (test code = 24 meq/L 22-29 2028-9) BUN (test code = 11 mg/dL 7- 3094-0) Creatinine (test 0.83 mg/dL 0.57-1.25 code = 2160-0) Glucose (test code 92 mg/dL 70-105 = 2345-7) Calcium (test code 9.5 mg/dL 8.4-10.2 = 94763-8) EGFR (test code = 81 mL/min/1.[place] [address]-1) NOT ACCURATE CREATININE CLEARANCE IN PREDICTING GLOMERULAR FILTRATION RATE . ESTIMATED GFR I S NOT APPLICABLE FOR DIALYSIS PATIEN TS. PENNY (test code = [employer] Systems Officer ID - BS PENNY) [facility] Metabolic [id number] 09:45:23 Test Item Value Reference Range Interpretation Comments Sodium (test code = 138 meq/L 025-785 1817-2) Potassium (test 3.6 meq/L 3.5-5.1 code = 2823-3) Chloride (test code 104 meq/L 98-107 = 2075-0) CO2 (test code = 24 meq/L 2028-02) BUN (test code = 11 mg/dL 7- 3094-0) Creatinine (test 0.83 mg/dL 0.57-1.25 code = 2160-0) Glucose (test code 92 mg/dL 70-105 = 2345-7) Calcium (test code 9.5 mg/dL 8.4-10.2 = 83297-1) EGFR (test code = 81 mL/min/1.[place] [address]-9) NOT ACCURATE CREATININE CLEARANCE IN PREDICTING GLOMERULAR FILTRATION RATE . ESTIMATED GFR I S NOT APPLICABLE FOR DIALYSIS PATIEN TS. PENNY (test code = [employer] Systems Officer ID - BS PENNY) [facility] Metabolic [id number] 09:45:23 Test Item Value Reference Range Interpretation Comments Sodium (test code = 138 meq/L 200-939 9835-2) Potassium (test 3.6 meq/L 3.5-5.1 code = 2823-3) Chloride (test code 104 meq/L 98-107 = 2075-0) CO2 (test code = 24 meq/L 22-29 2028-9) BUN (test code = 11 mg/dL 7-21 3094-0) Creatinine (test 0.83 mg/dL 0.57-1.25 code = 2160-0) Glucose (test code 92 mg/dL 70-105 = 2345-7) Calcium (test code 9.5 mg/dL 8.4-10.2 = 86456-2) EGFR (test code = 81 mL/min/1.73 [place] [address]-0) NOT ACCURATE CREATININE CLEARANCE IN PREDICTING GLOMERULAR FILTRATION RATE . ESTIMATED GFR I S NOT APPLICABLE FOR DIALYSIS PATIEN TS. PENNY (test code = [employer] Systems Officer ID - BS PENNY) [facility] METABOLIC [id number] 09:45:23 Test Item Value Reference Range Interpretation [...] S NOT APPLICABLE FOR DIALYSIS PATIEN TS. [employer] ID - [id number] 09:36:46 Test Item Value Reference Interpretation Comments [...] PTT (test code = 30.1 See_Comment [Automated 85540-9) message] The system which generated this result [...] valves. Lab Interpretation Normal (test code = 63222-7) [id number]46 Test Item Value Reference Interpretation Comments Range Protime (test code = 13.6 See_Comment [Autom ated 5902-2) message] The system which generated this result transmitted reference range : 11.9 - 14.2 seconds. The reference range was not used to interpret this result as normal/abnormal . INR (test code = 1.06 See_Comment [Automated 4461-6) message] The system which generated this result transmitted reference range : <=5.90. The reference range was not used to interpret this result as normal/abnormal . PTT (test code = 30.1 See_Comment [Automated 46665-5) message] The system which generated this result [...] valves. Lab Interpretation Normal (test code = 24101-6) [id number] 09:36:46 Test Item Value Reference Interpretation Comments [...] PTT (test code = 30.1 See_Comment [Automated 43819-8) message] The system which generated this result [...] valves. Lab Interpretation Normal (test code = 81070-5) [facility][id number] 09:36:46 Test Item Value Reference Interpretation Comments [...] PTT (test code = 30.1 See_Comment [Automated 66172-9) message] The system which generated this result [...] valves. Lab Interpretation Normal (test code = 49544-6) [facility][id number] 09:36:46 Test Item Value Reference Interpretation Comments Range Protime (test code = 13.6 See_Comment [Autom ated 5902-2) message] The system which generated this result transmitted reference range : 11.9 - 14.2 seconds. The reference range was not used to interpret this result as normal/abnormal . INR (test code = 1.06 See_Comment [Automated 6351-6) message] The system which generated this result transmitted reference range : <=5.90. The reference range was not used to interpret this result as normal/abnormal . PTT (test code = 30.1 See_Comment [Automated 72507-5) message] The system which generated this result [...] valves. Lab Interpretation Normal (test code = 66613-0) [facility][id number] 09:36:46 Test Item Value Reference Interpretation Comments [...] PTT (test code = 30.1 See_Comment [Automated 56087-2) message] The system which generated this result [...] valves. Lab Interpretation Normal (test code = 24320-6) [id number] 09:36:46 Test Item Value Reference Interpretation Comments [...] PTT (test code = 30.1 See_Comment [Automated 34186-9) message] The system which generated this result [...] valves. Lab Interpretation Normal (test code = 70822-8) [facility][id number] 09:36:46 Test Item Value Reference Interpretation Comments [...] PTT (test code = 30.1 See_Comment [Automated 62661-5) message] The system which generated this result [...] valves. Lab Interpretation Normal (test code = 25272-1) [facility][id number] 09:36:46 Test Item Value Reference Interpretation Comments [...] PTT (test code = 30.1 See_Comment [Automated 09358-7) message] The system which generated this result [...] valves. Lab Interpretation Normal (test code = 31471-6) [facility][id number] 09:36:46 Test Item Value Reference Interpretation Comments Range Protime (test code = 13.6 See_Comment [Autom ated 5902-2) message] The system which generated this result transmitted reference range : 11.9 - 14.2 seconds. The reference range was not used to interpret this result as normal/abnormal . INR (test code = 1.06 <=5.90 6301-6) PTT (test code = 30.1 See_Comment [Automated 75162-8) message] The system which generated this result [...] valves. Lab Interpretation Normal (test code = 58332-7) [facility][id number] 09:36:46 Test Item Value Reference Range Interpretation [...] 2.5-3.5 for patients with mechanical heart valves.Prothrombin time/[id number] 09:35:44 Test Item Value Reference Interpretation Comments [...] valves. Lab Interpretation Normal (test code = 40637-9) [facility]/[id number] 09:35:44 Test Item Value Reference Interpretation Comments Range Protime (test code = 13.6 See_Comment [Autom ated 5902-2) message] The system which generated this result transmitted reference range : 11.9 - 14.2 seconds. The reference range was not used to interpret this result as normal/abnormal . INR (test code = 1.06 See_Comment [Automated Nanoference1-6) message] The system which generated this result [...] valves. Lab Interpretation Normal (test code = 96579-3) [facility]/[id number] 09:35:44 Test Item Value Reference Interpretation Comments Range Protime (test code = 13.6 See_Comment [Autom ated 5902-2) message] The system which generated this result transmitted reference range : 11.9 - 14.2 seconds. The reference range was not used to interpret this result as normal/abnormal . INR (test code = 1.06 See_Comment [Automated Nanoference1-6) message] The system which generated this result [...] valves. Lab Interpretation Normal (test code = 38107-3) [facility]/[id number] 09:35:44 Test Item Value Reference Interpretation Comments [...] valves. Lab Interpretation Normal (test code = 37115-8) [facility]/[id number] 09:35:44 Test Item Value Reference Interpretation Comments Range Protime (test code = 13.6 See_Comment [Autom ated 5902-2) message] The system which generated this result transmitted reference range : 11.9 - 14.2 seconds. The reference range was not used to interpret this result as normal/abnormal . INR (test code = 1.06 See_Comment [Automated Nanoference1-6) message] The system which generated this result [...] valves. Lab Interpretation Normal (test code = 62544-2) [facility]/[id number] 09:35:44 Test Item Value Reference Interpretation Comments [...] valves. Lab Interpretation Normal (test code = 87466-4) [facility]/[id number] 09:35:44 Test Item Value Reference Interpretation Comments [...] valves. Lab Interpretation Normal (test code = 56071-7) [facility]/[id number] 09:35:44 Test Item Value Reference Interpretation Comments [...] valves. Lab Interpretation Normal (test code = 15752-2) [facility]/[id number] 09:35:44 Test Item Value Reference Interpretation Comments [...] valves. Lab Interpretation Normal (test code = 19419-8) [facility]/[id number] 09:35:44 Test Item Value Reference Interpretation Comments [...] valves. Lab Interpretation Normal (test code = 07820-0) [facility]/[id number] 09:35:44 Test Item Value Reference Range Interpretation Comments PROTIME (BEAKER) 13.6 seconds 11.9-14.2 (test code = 759) INR (BEAKER) (test 1.06 See_Comment [Automat ed message] code = 370) The system [employer] generated this result transmitted ref erence range: <=5.90. The reference range was not used to int erpret this result as normal/abnormal . RECOMMENDED COUMADIN/WARFARIN INR THERAPY RANGESSTANDARD DOSE: 2.0 - 3.0 Includes: PROPHYLAXIS for venous thrombosis, systemic embolization; TREATMENT for venous thrombosis and/or pulmonary embolus.HIGH RISK: Target INR is 2.5-3.5 for patients with mechanical heart valves.CBC with platelet count + automated [id number] 09:24:01 Test Item Value Reference Range Interpretation Comments WBC (test code = 6690-2) 5.6 See_Comment [A utomated message] The system [employer] generated this result transmitted ref erence range: 3.5 - 10 .5 K/L. The refe rence range was not u sed to interpret this result as normal/abnor mal. RBC (test code = 789-8) 4.26 See_Comment [Au tomated message] The system [employer] generated this result transmitted ref erence range: 3.93 - 5 .22 M/L. The refe rence range was not u sed to interpret this result as normal/abnor mal. MCHC (test code = 786-4) 32.2 See_Comment [A utomated message] The system [employer] generated this result transmitted ref erence range: [...] code = 311 See_Comment [Aut omated message] 547-3) The system [employer] generated this result transmitted ref erence range: 150 - 45 0 K/CU MM. The referen ce range was not u sed to interpret this result as normal/abnor mal. MPV (test code = 9.2 fL 9.4-12.3 L 23665-9) nRBC (test code = 413) 0 See_Comment [Aut omated message] The system [employer] generated this result transmitted ref erence range: [...] See_Comment [Aut omated message] 670) The system [employer] generated this result transmitted ref erence range: 1.56 - 6 .13 K/L. The refe rence range was not u sed to interpret this result as normal/abnor mal. # Lymphs (test code = 0.77 See_Comment L [Auto mated message] 414) The system [employer] generated this result transmitted ref erence range: 1.18 - 3 .74 K/L. The refe rence range was not u sed to interpret this result as normal/abnor mal. # Monos (test code = 0.37 See_Comment H [Autom ated message] 415) The system [employer] generated this result transmitted ref erence range: 0.24 - 0 .36 K/L. The refe rence range was not u sed to interpret this result as normal/abnor mal. # Eos (test code = 416) 0.01 See_Comment L [Au tomated message] The system [employer] generated this result transmitted ref erence range: 0.04 - 0 .36 K/L. The refe rence range was not u sed to interpret this result as normal/abnor mal. # Baso (test code = 417) 0.02 See_Comment [A utomated message] The system [employer] generated this result transmitted ref erence range: 0.01 - 0 .08 K/L. The refe rence range was not u sed to interpret this result as normal/abnor mal. Immature 0 % 0-1 Granulocytes-Relative (test code = 2801) Lab Interpretation (test Abnormal code = 63698-6) [facility] with platelet count + automated [id number] 09:24:01 Test Item Value Reference Range Interpretation Comments WBC (test code = 6690-2) 5.6 See_Comment [A utomated message] The system [employer] generated this result transmitted ref erence range: 3.5 - 10 .5 K/L. The refe rence range was not u sed to interpret this result as normal/abnor mal. RBC (test code = 789-8) 4.26 See_Comment [Au tomated message] The system [employer] generated this result transmitted ref erence range: 3.93 - 5 .22 M/L. The refe rence range was not u sed to interpret this result as normal/abnor mal. MCHC (test code = 786-4) 32.2 See_Comment [A utomated message] The system [employer] generated this result transmitted ref erence range: [...] See_Comment [Aut omated message] 777-3) The system [employer] generated this result transmitted ref erence range: 150 - 45 0 K/CU MM. The referen ce range was not u sed to interpret this result as normal/abnor mal. MPV (test code = 9.2 fL 9.4-12.3 L 78605-1) nRBC (test code = 413) 0 See_Comment [Aut omated message] The system [employer] generated this result transmitted ref erence range: [...] See_Comment [Aut omated message] 670) The system [employer] generated this result transmitted ref erence range: 1.56 - 6 .13 K/L. The refe rence range was not u sed to interpret this result as normal/abnor mal. # Lymphs (test code = 0.77 See_Comment L [Auto mated message] 414) The system [employer] generated this result transmitted ref erence range: 1.18 - 3 .74 K/L. The refe rence range was not u sed to interpret this result as normal/abnor mal. # Monos (test code = 0.37 See_Comment H [Autom ated message] 415) The system [employer] generated this result transmitted ref erence range: 0.24 - 0 .36 K/L. The refe rence range was not u sed to interpret this result as normal/abnor mal. # Eos (test code = 416) 0.01 See_Comment L [Au tomated message] The system [employer] generated this result transmitted ref erence range: 0.04 - 0 .36 K/L. The refe rence range was not u sed to interpret this result as normal/abnor mal. # Baso (test code = 417) 0.02 See_Comment [A utomated message] The system [employer] generated this result transmitted ref erence range: 0.01 - 0 .08 K/L. The refe rence range was not u sed to interpret this result as normal/abnor mal. Immature 0 % 0-1 Granulocytes-Relative (test code = 2801) Lab Interpretation (test Abnormal code = 53620-1) [facility] with platelet count + automated [id number] 09:24:01 Test Item Value Reference Range Interpretation Comments WBC (test code = 6690-2) 5.6 See_Comment [A utomated message] The system [employer] generated this result transmitted ref erence range: 3.5 - 10 .5 K/L. The refe rence range was not u sed to interpret this result as normal/abnor mal. RBC (test code = 789-8) 4.26 See_Comment [Au tomated message] The system [employer] generated this result transmitted ref erence range: 3.93 - 5 .22 M/L. The refe rence range was not u sed to interpret this result as normal/abnor mal. MCHC (test code = 786-4) 32.2 See_Comment [A utomated message] The system [employer] generated this result transmitted ref erence range: [...] See_Comment [Aut omated message] 777-3) The system [employer] generated this result transmitted ref erence range: 150 - 45 0 K/CU MM. The referen ce range was not u sed to interpret this result as normal/abnor mal. MPV (test code = 9.2 fL 9.4-12.3 L 80368-7) nRBC (test code = 413) 0 See_Comment [Aut omated message] The system [employer] generated this result transmitted ref erence range: [...] See_Comment [Aut omated message] 670) The system [employer] generated this result transmitted ref erence range: 1.56 - 6 .13 K/L. The refe rence range was not u sed to interpret this result as normal/abnor mal. # Lymphs (test code = 0.77 See_Comment L [Auto mated message] 414) The system [employer] generated this result transmitted ref erence range: 1.18 - 3 .74 K/L. The refe rence range was not u sed to interpret this result as normal/abnor mal. # Monos (test code = 0.37 See_Comment H [Autom ated message] 415) The system [employer] generated this result transmitted ref erence range: 0.24 - 0 .36 K/L. The refe rence range was not u sed to interpret this result as normal/abnor mal. # Eos (test code = 416) 0.01 See_Comment L [Au tomated message] The system [employer] generated this result transmitted ref erence range: 0.04 - 0 .36 K/L. The refe rence range was not u sed to interpret this result as normal/abnor mal. # Baso (test code = 417) 0.02 See_Comment [A utomated message] The system [employer] generated this result transmitted ref erence range: 0.01 - 0 .08 K/L. The refe rence range was not u sed to interpret this result as normal/abnor mal. Immature 0 % 0-1 Granulocytes-Relative (test code = 2801) Lab Interpretation (test Abnormal code = 00812-8) [facility] [id number] 09:24:01 Test Item Value Reference Range Interpretation Comments WBC (test code = 6690-2) 5.6 See_Comment [A utomated message] The system [employer] generated this result transmitted ref erence range: 3.5 - 10 .5 K/L. The refe rence range was not u sed to interpret this result as normal/abnor mal. RBC (test code = 789-8) 4.26 See_Comment [Au tomated message] The system [employer] generated this result transmitted ref erence range: 3.93 - 5 .22 M/L. The refe rence range was not u sed to interpret this result as normal/abnor mal. MCHC (test code = 786-4) 32.2 See_Comment [A utomated message] The system [employer] generated this result transmitted ref erence range: [...] See_Comment [Aut omated message] 777-3) The system [employer] generated this result transmitted ref erence range: 150 - 45 0 K/CU MM. The referen ce range was not u sed to interpret this result as normal/abnor mal. MPV (test code = 9.2 fL 9.4-12.3 L 43140-9) nRBC (test code = 413) 0 See_Comment [Aut omated message] The system [employer] generated this result transmitted ref erence range: [...] See_Comment [Aut omated message] 670) The system [employer] generated this result transmitted ref erence range: 1.56 - 6 .13 K/L. The refe rence range was not u sed to interpret this result as normal/abnor mal. # Lymphs (test code = 0.77 See_Comment L [Auto mated message] 414) The system [employer] generated this result transmitted ref erence range: 1.18 - 3 .74 K/L. The refe rence range was not u sed to interpret this result as normal/abnor mal. # Monos (test code = 0.37 See_Comment H [Autom ated message] 415) The system [employer] generated this result transmitted ref erence range: 0.24 - 0 .36 K/L. The refe rence range was not u sed to interpret this result as normal/abnor mal. # Eos (test code = 416) 0.01 See_Comment L [Au tomated message] The system [employer] generated this result transmitted ref erence range: 0.04 - 0 .36 K/L. The refe rence range was not u sed to interpret this result as normal/abnor mal. # Baso (test code = 417) 0.02 See_Comment [A utomated message] The system [employer] generated this result transmitted ref erence range: 0.01 - 0 .08 K/L. The refe rence range was not u sed to interpret this result as normal/abnor mal. Immature 0 % 0-1 Granulocytes-Relative (test code = 2801) Lab Interpretation (test Abnormal code = 69384-8) [facility] with platelet count + automated [id number] 09:24:01 Test Item Value Reference Range Interpretation Comments WBC (test code = 6690-2) 5.6 See_Comment [A utomated message] The system [employer] generated this result transmitted ref erence range: 3.5 - 10 .5 K/L. The refe rence range was not u sed to interpret this result as normal/abnor mal. RBC (test code = 789-8) 4.26 See_Comment [Au tomated message] The system [employer] generated this result transmitted ref erence range: 3.93 - 5 .22 M/L. The refe rence range was not u sed to interpret this result as normal/abnor mal. MCHC (test code = 786-4) 32.2 See_Comment [A utomated message] The system [employer] generated this result transmitted ref erence range: [...] code = 311 See_Comment [Aut omated message] 447-3) The system [employer] generated this result transmitted ref erence range: 150 - 45 0 K/CU MM. The referen ce range was not u sed to interpret this result as normal/abnor mal. MPV (test code = 9.2 fL 9.4-12.3 L 11985-4) nRBC (test code = 413) 0 See_Comment [Aut omated message] The system [employer] generated this result transmitted ref erence range: [...] See_Comment [Aut omated message] 670) The system [employer] generated this result transmitted ref erence range: 1.56 - 6 .13 K/L. The refe rence range was not u sed to interpret this result as normal/abnor mal. # Lymphs (test code = 0.77 See_Comment L [Auto mated message] 414) The system [employer] generated this result transmitted ref erence range: 1.18 - 3 .74 K/L. The refe rence range was not u sed to interpret this result as normal/abnor mal. # Monos (test code = 0.37 See_Comment H [Autom ated message] 415) The system [employer] generated this result transmitted ref erence range: 0.24 - 0 .36 K/L. The refe rence range was not u sed to interpret this result as normal/abnor mal. # Eos (test code = 416) 0.01 See_Comment L [Au tomated message] The system [employer] generated this result transmitted ref erence range: 0.04 - 0 .36 K/L. The refe rence range was not u sed to interpret this result as normal/abnor mal. # Baso (test code = 417) 0.02 See_Comment [A utomated message] The system [employer] generated this result transmitted ref erence range: 0.01 - 0 .08 K/L. The refe rence range was not u sed to interpret this result as normal/abnor mal. Immature 0 % 0-1 Granulocytes-Relative (test code = 2801) Lab Interpretation (test Abnormal code = 71577-6) [facility] with platelet count + automated [id number] 09:24:01 Test Item Value Reference Range Interpretation Comments WBC (test code = 6690-2) 5.6 See_Comment [A utomated message] The system [employer] generated this result transmitted ref erence range: 3.5 - 10 .5 K/L. The refe rence range was not u sed to interpret this result as normal/abnor mal. RBC (test code = 789-8) 4.26 See_Comment [Au tomated message] The system [employer] generated this result transmitted ref erence range: 3.93 - 5 .22 M/L. The refe rence range was not u sed to interpret this result as normal/abnor mal. MCHC (test code = 786-4) 32.2 See_Comment [A utomated message] The system [employer] generated this result transmitted ref erence range: [...] See_Comment [Aut omated message] 777-3) The system [employer] generated this result transmitted ref erence range: 150 - 45 0 K/CU MM. The referen ce range was not u sed to interpret this result as normal/abnor mal. MPV (test code = 9.2 fL 9.4-12.3 L 77778-0) nRBC (test code = 413) 0 See_Comment [Aut omated message] The system [employer] generated this result transmitted ref erence range: [...] See_Comment [Aut omated message] 670) The system [employer] generated this result transmitted ref erence range: 1.56 - 6 .13 K/L. The refe rence range was not u sed to interpret this result as normal/abnor mal. # Lymphs (test code = 0.77 See_Comment L [Auto mated message] 414) The system [employer] generated this result transmitted ref erence range: 1.18 - 3 .74 K/L. The refe rence range was not u sed to interpret this result as normal/abnor mal. # Monos (test code = 0.37 See_Comment H [Autom ated message] 415) The system [employer] generated this result transmitted ref erence range: 0.24 - 0 .36 K/L. The refe rence range was not u sed to interpret this result as normal/abnor mal. # Eos (test code = 416) 0.01 See_Comment L [Au tomated message] The system [employer] generated this result transmitted ref erence range: 0.04 - 0 .36 K/L. The refe rence range was not u sed to interpret this result as normal/abnor mal. # Baso (test code = 417) 0.02 See_Comment [A utomated message] The system [employer] generated this result transmitted ref erence range: 0.01 - 0 .08 K/L. The refe rence range was not u sed to interpret this result as normal/abnor mal. Immature 0 % 0-1 Granulocytes-Relative (test code = 2801) Lab Interpretation (test Abnormal code = 64349-4) [facility] with platelet count + automated [id number] 09:24:01 Test Item Value Reference Range Interpretation Comments WBC (test code = 6690-2) 5.6 See_Comment [A utomated message] The system [employer] generated this result transmitted ref erence range: 3.5 - 10 .5 K/L. The refe rence range was not u sed to interpret this result as normal/abnor mal. RBC (test code = 789-8) 4.26 See_Comment [Au tomated message] The system [employer] generated this result transmitted ref erence range: 3.93 - 5 .22 M/L. The refe rence range was not u sed to interpret this result as normal/abnor mal. MCHC (test code = 786-4) 32.2 See_Comment [A utomated message] The system [employer] generated this result transmitted ref erence range: [...] See_Comment [Aut omated message] 777-3) The system [employer] generated this result transmitted ref erence range: 150 - 45 0 K/CU MM. The referen ce range was not u sed to interpret this result as normal/abnor mal. MPV (test code = 9.2 fL 9.4-12.3 L 37627-7) nRBC (test code = 413) 0 See_Comment [Aut omated message] The system [employer] generated this result transmitted ref erence range: [...] See_Comment [Aut omated message] 670) The system [employer] generated this result transmitted ref erence range: 1.56 - 6 .13 K/L. The refe rence range was not u sed to interpret this result as normal/abnor mal. # Lymphs (test code = 0.77 See_Comment L [Auto mated message] 414) The system [employer] generated this result transmitted ref erence range: 1.18 - 3 .74 K/L. The refe rence range was not u sed to interpret this result as normal/abnor mal. # Monos (test code = 0.37 See_Comment H [Autom ated message] 415) The system [employer] generated this result transmitted ref erence range: 0.24 - 0 .36 K/L. The refe rence range was not u sed to interpret this result as normal/abnor mal. # Eos (test code = 416) 0.01 See_Comment L [Au tomated message] The system [employer] generated this result transmitted ref erence range: 0.04 - 0 .36 K/L. The refe rence range was not u sed to interpret this result as normal/abnor mal. # Baso (test code = 417) 0.02 See_Comment [A utomated message] The system Sky[employer] generated this result transmitted ref erence range: 0.01 - 0 .08 K/L. The refe rence range was not u sed to interpret this result as normal/abnor mal. Immature 0 % 0-1 Granulocytes-Relative (test code = 2801) Lab Interpretation (test Abnormal code = 46368-1) [facility] with platelet count + automated [id number] 09:24:01 Test Item Value Reference Range Interpretation Comments WBC (test code = 6690-2) 5.6 See_Comment [A utomated message] The system [employer] generated this result transmitted ref erence range: 3.5 - 10 .5 K/L. The refe rence range was not u sed to interpret this result as normal/abnor mal. RBC (test code = 789-8) 4.26 See_Comment [Au tomated message] The system [employer] generated this result transmitted ref erence range: 3.93 - 5 .22 M/L. The refe rence range was not u sed to interpret this result as normal/abnor mal. MCHC (test code = 786-4) 32.2 See_Comment [A utomated message] The system [employer] generated this result transmitted ref erence range: [...] See_Comment [Aut omated message] 777-3) The system [employer] generated this result transmitted ref erence range: 150 - 45 0 K/CU MM. The referen ce range was not u sed to interpret this result as normal/abnor mal. MPV (test code = 9.2 fL 9.4-12.3 L 17455-6) nRBC (test code = 413) 0 See_Comment [Aut omated message] The system [employer] generated this result transmitted ref erence range: [...] See_Comment [Aut omated message] 670) The system [employer] generated this result transmitted ref erence range: 1.56 - 6 .13 K/L. The refe rence range was not u sed to interpret this result as normal/abnor mal. # Lymphs (test code = 0.77 See_Comment L [Auto mated message] 414) The system [employer] generated this result transmitted ref erence range: 1.18 - 3 .74 K/L. The refe rence range was not u sed to interpret this result as normal/abnor mal. # Monos (test code = 0.37 See_Comment H [Autom ated message] 415) The system [employer] generated this result transmitted ref erence range: 0.24 - 0 .36 K/L. The refe rence range was not u sed to interpret this result as normal/abnor mal. # Eos (test code = 416) 0.01 See_Comment L [Au tomated message] The system [employer] generated this result transmitted ref erence range: 0.04 - 0 .36 K/L. The refe rence range was not u sed to interpret this result as normal/abnor mal. # Baso (test code = 417) 0.02 See_Comment [A utomated message] The system [employer] generated this result transmitted ref erence range: 0.01 - 0 .08 K/L. The refe rence range was not u sed to interpret this result as normal/abnor mal. Immature 0 % 0-1 Granulocytes-Relative (test code = 2801) Lab Interpretation (test Abnormal code = 02414-7) [facility] with platelet count + automated [id number] 09:24:01 Test Item Value Reference Range Interpretation Comments WBC (test code = 6690-2) 5.6 See_Comment [A utomated message] The system [employer] generated this result transmitted ref erence range: 3.5 - 10 .5 K/L. The refe rence range was not u sed to interpret this result as normal/abnor mal. RBC (test code = 789-8) 4.26 See_Comment [Au tomated message] The system [employer] generated this result transmitted ref erence range: 3.93 - 5 .22 M/L. The refe rence range was not u sed to interpret this result as normal/abnor mal. MCHC (test code = 786-4) 32.2 See_Comment [A utomated message] The system [employer] generated this result transmitted ref erence range: [...] See_Comment [Aut omated message] 777-3) The system [employer] generated this result transmitted ref erence range: 150 - 45 0 K/CU MM. The referen ce range was not u sed to interpret this result as normal/abnor mal. MPV (test code = 9.2 fL 9.4-12.3 L 48685-6) nRBC (test code = 413) 0 See_Comment [Aut omated message] The system [employer] generated this result transmitted ref erence range: [...] See_Comment [Aut omated message] 670) The system [employer] generated this result transmitted ref erence range: 1.56 - 6 .13 K/L. The refe rence range was not u sed to interpret this result as normal/abnor mal. # Lymphs (test code = 0.77 See_Comment L [Auto mated message] 414) The system [employer] generated this result transmitted ref erence range: 1.18 - 3 .74 K/L. The refe rence range was not u sed to interpret this result as normal/abnor mal. # Monos (test code = 0.37 See_Comment H [Autom ated message] 415) The system [employer] generated this result transmitted ref erence range: 0.24 - 0 .36 K/L. The refe rence range was not u sed to interpret this result as normal/abnor mal. # Eos (test code = 416) 0.01 See_Comment L [Au tomated message] The system [employer] generated this result transmitted ref erence range: 0.04 - 0 .36 K/L. The refe rence range was not u sed to interpret this result as normal/abnor mal. # Baso (test code = 417) 0.02 See_Comment [A utomated message] The system [employer] generated this result transmitted ref erence range: 0.01 - 0 .08 K/L. The refe rence range was not u sed to interpret this result as normal/abnor mal. Immature 0 % 0-1 Granulocytes-Relative (test code = 2801) Lab Interpretation (test Abnormal code = 60568-5) [facility] with platelet count + automated [id number] 09:24:01 Test Item Value Reference Range Interpretation Comments WBC (test code = 6690-2) 5.6 See_Comment [A utomated message] The system [employer] generated this result transmitted ref erence range: 3.5 - 10 .5 K/L. The refe rence range was not u sed to interpret this result as normal/abnor mal. RBC (test code = 789-8) 4.26 See_Comment [Au tomated message] The system [employer] generated this result transmitted ref erence range: 3.93 - 5 .22 M/L. The refe rence range was not u sed to interpret this result as normal/abnor mal. MCHC (test code = 786-4) 32.2 See_Comment [A utomated message] The system [employer] generated this result transmitted ref erence range: [...] code = 311 See_Comment [Aut omated message] 187-3) The system [employer] generated this result transmitted ref erence range: 150 - 45 0 K/CU MM. The referen ce range was not u sed to interpret this result as normal/abnor mal. MPV (test code = 9.2 fL 9.4-12.3 L 05425-1) nRBC (test code = 413) 0 See_Comment [Aut omated message] The system [employer] generated this result transmitted ref erence range: [...] See_Comment [Aut omated message] 670) The system [employer] generated this result transmitted ref erence range: 1.56 - 6 .13 K/L. The refe rence range was not u sed to interpret this result as normal/abnor mal. # Lymphs (test code = 0.77 See_Comment L [Auto mated message] 414) The system [employer] generated this result transmitted ref erence range: 1.18 - 3 .74 K/L. The refe rence range was not u sed to interpret this result as normal/abnor mal. # Monos (test code = 0.37 See_Comment H [Autom ated message] 415) The system [employer] generated this result transmitted ref erence range: 0.24 - 0 .36 K/L. The refe rence range was not u sed to interpret this result as normal/abnor mal. # Eos (test code = 416) 0.01 See_Comment L [Au tomated message] The system [employer] generated this result transmitted ref erence range: 0.04 - 0 .36 K/L. The refe rence range was not u sed to interpret this result as normal/abnor mal. # Baso (test code = 417) 0.02 See_Comment [A utomated message] The system [employer] generated this result transmitted ref erence range: 0.01 - 0 .08 K/L. The refe rence range was not u sed to interpret this result as normal/abnor mal. Immature 0 % 0-1 Granulocytes-Relative (test code = 2801) Lab Interpretation (test Abnormal code = 48166-6) [facility] W/PLT COUNT & AUTO [id number] 09:24:01 Test Item Value Reference Range Interpretation [...] (BEAKER) (test code = 2801) BASIC METABOLIC [id number] 11:44:04 Test Item Value Reference Range Interpretation [...] S NOT APPLICABLE FOR DIALYSIS PATIEN TS. Combat Systems Officer ID - DSENSONOperator ID - DSENSONOperator ID - DSENSONOperator ID - DSENSONOperator ID - DSENSONOperator ID - DSENSONOperator ID - DSENSONOperator ID - DSENSONOperator ID - DSENSONOperator ID - DSENSONOperator ID - DSENSONOperator ID - DSENSONRAD, KNEE, 1 OR 2 VIEWS, [id number] 11:39:00 Reason for exam:->pain [facility]ENTERName: ASHLIE HUERTAS : 1945 [...] Brown MDReport Verified Date/Time: 07/01/2021 11:39:36 ReadingLocation: [facility] Radiology Reading Room Electronically signed by: SHAYNE BROWN M.D. on :39 AMRAD, KNEE, 1 OR 2 VIEWS, [id number] 11:39:00Reason for exam:->pain [facility] CENTERName: ASHLIE HUERTAS : 1945 [...] osseous abnormality.2. Left knee DJD. Signed: Shayne Browneport Verified Date/Time: 07/01/2021 11:39:36 ReadingLocation: [facility] Radiology Reading Room Electronically signed by: SHAYNE BROWN M.D. on 1:39 AMCBC W/PLT COUNT & AUTO [id number] 11:28:20 Test Item Value Reference Range Interpretation [...] (BEAKER) (test code = 2801) Blood Culture # 10:00:18 Test Item Value Reference Range Interpretation Comments Result (test code = No growth in 5 days 6463-4) [facility] Culture # 10:00:18 Test Item Value Reference Range Interpretation Comments Result (test code = No growth in 5 days 6463-4) [facility] Culture # 10:00:18 Test Item Value Reference Range Interpretation Comments Result (test code = No growth in 5 days 6463-4) [facility] Culture # 10:00:18 Test Item Value Reference Range Interpretation Comments Result (test code = No growth in 5 days 6463-4) [facility] Culture # 10:00:18 Test Item Value Reference Range Interpretation Comments Result (test code = No growth in 5 days 6463-4) [facility] Culture # 10:00:18 Test Item Value Reference Range Interpretation Comments Result (test code = No growth in 5 days 6463-4) [facility] Culture # 10:00:18 Test Item Value Reference Range Interpretation Comments Result (test code = No growth in 5 days 6463-4) [facility] Culture # 10:00:18 Test Item Value Reference Range Interpretation Comments Result (test code = No growth in 5 days 6463-4) [facility] Culture # 10:00:18 Test Item Value Reference Range Interpretation Comments Result (test code = No growth in 5 days 6463-4) [id number]:18 Test Item Value Reference Range Interpretation Comments CULTURE (BEAKER) (test No growth in 5 days code = 1095) BLOOD [id number] 10:00:18 Test Item Value Reference Range Interpretation Comments CULTURE (BEAKER) (test No growth in 5 days code = 1095) TISSUE [id number] 10:04:38Surgical Pathology Report Case: [id number] Authorizing Provider: Cristobal Espinoza MD Collected: 06/16/2021 09:50 AM Ordering Location: [facility] Med Surg 5th Floor Received: 06/16/2021 10:07 AM Patholo gist: David Kay MD Specimen: Lung, Right, lung biopsy LUNG, RIGHT, BIOPSY: - ADENOCARCINOMA. Signing Pathologist Direct Phone Line: [phone] signed by David Kay MD on 06/18/2021 at 10:04 AMThe histologic and immunohistochemical profile is compatible with adenocarcinoma of lung primary.94446, 28183, 43583 x 3Bronchogenic cancer of right lungRight lungA. Received in a formalin-filled container labeled with the patient's information "right lung biopsy" are multiple soft tissue fragments ranging in length from 0.2 to 0.6 cm in greatest length. The specimen is entir geremias submitted in two cassettes. /plPerformedTTF-1: Positive in the tumor cells.Napsin: Positive inthe tumor cells.CK5/6: Negative in the tumor cells.p63: Rare weak staining of the tumor cells is seen; most tumor cells are negative.The interpretation of this case included the use of immunohistochemistry or special stains.Control Slides Examined: In-house known positive controls were evaluated alongwith the test tissue. These control slides run alongside of the patients sample show appropriate staining. Internal positive and negative controls when available are evaluated Immunohistochemistry technical testing was performed at [facility], Pathology Laboratory where it was developed and its performance characteristics were determined. It has not been cleared or approved by the U.S. Food and Drug Administration. The FDA has determined that such clearance or approval is not necessary. The test is used for clinical purposes. It should not be regarded as investigational or forresearch. This laboratory is certified under the Clinical Laboratory Improvement Amendments of 1988 (CLIA-88) as qualified to perform high complexity clinical laboratory testing.[facility], Department of Pathology, [address] [place] [address], [facility], Department of Pathology, [address] [place] [address], Tel [facility], Department of Pathology, [address] [place] [address], Jdkvu [id number] 11:51:16 Test Item Value Reference Range Interpretation Comments Result (test code = 6463-4) No growth [facility] [id number] 11:51:16 Test Item Value Reference Range Interpretation Comments Result (test code = 6463-4) No growth [facility] [id number] 11:51:16 Test Item Value Reference Range Interpretation Comments Result (test code = 6463-4) No growth [facility] [id number] 11:51:16 Test Item Value Reference Range Interpretation Comments Result (test code = 6463-4) No growth [facility] [id number] 11:51:16 Test Item Value Reference Range Interpretation Comments Result (test code = 6463-4) No growth [facility] [id number] 11:51:16 Test Item Value Reference Range Interpretation Comments Result (test code = 6463-4) No growth [facility] [id number] 11:51:16 Test Item Value Reference Range Interpretation Comments Result (test code = 6463-4) No growth [facility] [id number] 11:51:16 Test Item Value Reference Range Interpretation Comments Result (test code = 6463-4) No growth [facility] [id number] 11:51:16 Test Item Value Reference Range Interpretation Comments Result (test code = 6463-4) No [facility], NON [id number] 10:56:00Reason for exam:->post Right lung biopsyShould this be performed at the bedside?->[facility] 1945 Sex: FFINAL REPORT CHEST AP PORTABLE ERECT History provided: Delayed chest x- ray after CT-guided right lung needle biopsy Radiograph shows no evidence of pneumothorax. Large right perihilar mass evident. Lungs otherwise clear. Signed: [facility] Verified Date/Time: :56:50 Reading Location: [facility] Radiology Reading Room Electronically signed by: RAI RINCON on 0 06/16/2021 10:56 AMCT, BIOPSY, [id number] 09:57:00Reason for exam:->Right lung massVAL[facility] : 1945 Sex: FFINAL [...] Rincon MDReport Verified Date/Time: 209:57:42 Reading Location: [facility] Radiology Reading Room Electronically signed by: RAI RINCON on06/16/2021 09:57 AMMR, EXTREMITY, LOWER, JOINT, [id number] 09:14:00Unlisted Reason for Exam - Click Yes and Enter Reason Below->YesUnlisted Reason for Exam->hip painVAL[facility] : 1945 Sex: FFINAL [...] and rectum, correlate clinically. Signed: Turner Mistry Verified Date/Time: 06/16/2021 09:14:21 Reading Location: [address] Ortho Consult Reading Room MR, EXTREMITY, LOWER, JOINT, [id number] 09:14:00Unlisted Reason for Exam - Click Yes and Enter Reason Below->YesUnlisted Reason for Exam->hip painVAL[facility] : 1945 Sex: FFINAL [...] MDReport Verified Date/Time: 06/16/2021 09:14:21 Reading Location: [facility] [id number] Ortho Consult Reading Room BASIC METABOLIC [id number] 06:27:18 Test Item Value Reference Range Interpretation [...] S NOT APPLICABLE FOR DIALYSIS PATIEN TS. Combat Systems Officer ID - LITOOperator ID - LITOOperator ID - LITOOperator ID - LITOOperator ID - LITOOperator ID - LITOOperator ID - LITOOperator ID - LITOOperator ID - LITOOperator ID - LITOOperator ID - LITOOperator ID - LITOCBC W/PLT COUNT & AUTO [id number] 06:09:16 Test Item Value Reference Range Interpretation [...] (BEAKER) (test code = 2801) BASIC METABOLIC [id number] 05:42:48 Test Item Value Reference Range Interpretation [...] S NOT APPLICABLE FOR DIALYSIS PATIEN TS. Combat Systems Officer ID - MITCHOperator ID - MITCHOperator ID - MITCHOperator ID - MITCHOperator ID - MITCHOperator ID - MITCHOperator ID - MITCHOperator ID - MITCHOperator ID - MITCHOperator ID - MITCHOperator ID- MITCHOperator ID - JAI CBC W/PLT COUNT & AUTO [id number] 05:31:43 Test Item Value Reference Range Interpretation [...] PERCENT (BEAKER) (test code = 2801) Urinalysis w/[id number] 06:00:27 Test Item Value Reference Range Interpretation Comments Color, UA (test code = Brown 5778-6) Clarity, UA (test code Clear = 5767-9) Specific [place], UA 1.025 1.001-1.035 (test code = 5811-5) pH, UA (test code = 5.5 5.0-8.0 5803-2) Protein, UA (test code Trace Negative A = 24568-1) Glucose, UA (test code Negative Negative = 365) Ketones, UA (test code Trace Negative A = 2514-8) Bilirubin, UA (test Positive Negative A code = 80846-2) Blood, UA (test code = Negative Negative 79570-5) Nitrite, UA (test code Positive Negative A RESUL T MAY BE = 5802-4) INACCURATE DUE TO COLOR INTERFERE NCE. Leukocytes, UA (test Negative Negative code = 5799-2) Urobilinogen, UA (test 1.0 mg/dL 0.2-1.0 code = 52903-9) Bacteria, UA (test code Occasional = 52169-1) Mucus (test code = Occasional 8247-9) Ca Oxalate Casi, UA Occasional (test code = 04240-5) RBC, UA (test code = <5 See_Comment [Autom ated message] 799-7) The system [employer] generated this result transmit perlita reference range : /HPF. The refer ence range was not u sed to interpret th is result as normal/abnormal . WBC, UA (test code = <5 See_Comment [Autom ated message] 43120-6) The system [employer] generated this result transmit perlita reference range : /HPF. The refer ence range was not u sed to interpret th is result as normal/abnormal . SQUAMOUS EPITHELIAL <5 See_Comment [Automa perlita message] (test code = 56769-7) The sy stem which generated this result transmit perlita reference range : /HPF. The refer ence range was not u sed to interpret th is result as normal/abnormal . Specimen Source (test code = 2795) Lab Interpretation Abnormal (test code = 48361-3) [facility][id number] 06:00:27 Test Item Value Reference Range Interpretation Comments Color, UA (test code = Brown 5778-6) Clarity, UA (test code Clear = 5767-9) Specific [place], UA 1.025 1.001-1.035 (test code = 5811-5) pH, UA (test code = 5.5 5.0-8.0 5803-2) Protein, UA (test code Trace Negative A = 81336-7) Glucose, UA (test code Negative Negative = 365) Ketones, UA (test code Trace Negative A = 2514-8) Bilirubin, UA (test Positive Negative A code = 02808-3) Blood, UA (test code = Negative Negative 70974-4) Nitrite, UA (test code Positive Negative A RESUL T MAY BE = 5802-4) INACCURATE DUE TO COLOR INTERFERE NCE. Leukocytes, UA (test Negative Negative code = 5799-2) Urobilinogen, UA (test 1.0 mg/dL 0.2-1.0 code = 25239-7) Bacteria, UA (test code Occasional = 35498-8) Mucus (test code = Occasional 8247-9) Ca Oxalate Casi, UA Occasional (test code = 00985-6) RBC, UA (test code = <5 See_Comment [Autom ated message] 799-7) The system [employer] generated this result transmit perlita reference range : /HPF. The refer ence range was not u sed to interpret th is result as normal/abnormal . WBC, UA (test code = <5 See_Comment [Autom ated message] 75172-8) The system [employer] generated this result transmit perlita reference range : /HPF. The refer ence range was not u sed to interpret th is result as normal/abnormal . SQUAMOUS EPITHELIAL <5 See_Comment [Automa perlita message] (test code = 73172-5) The sy stem which generated this result transmit perlita reference range : /HPF. The refer ence range was not u sed to interpret th is result as normal/abnormal . Specimen Source (test code = 2795) Lab Interpretation Abnormal (test code = 45278-1) [facility]/[id number] 06:00:27 Test Item Value Reference Range Interpretation Comments Color, UA (test code = Brown 5778-6) Clarity, UA (test code Clear = 5767-9) Specific [place], UA 1.025 1.001-1.035 (test code = 5811-5) pH, UA (test code = 5.5 5.0-8.0 5803-2) Protein, UA (test code Trace Negative A = 32141-8) Glucose, UA (test code Negative Negative = 365) Ketones, UA (test code Trace Negative A = 2514-8) Bilirubin, UA (test Positive Negative A code = 70515-6) Blood, UA (test code = Negative Negative 59850-7) Nitrite, UA (test code Positive Negative A RESUL T MAY BE = 5802-4) INACCURATE DUE TO COLOR INTERFERE NCE. Leukocytes, UA (test Negative Negative code = 5799-2) Urobilinogen, UA (test 1.0 mg/dL 0.2-1.0 code = 12311-6) Bacteria, UA (test code Occasional = 13744-9) Mucus (test code = Occasional 8247-9) Ca Oxalate Casi, UA Occasional (test code = 07836-6) RBC, UA (test code = <5 See_Comment [Autom ated message] 799-7) The system [employer] generated this result transmit perlita reference range : /HPF. The refer ence range was not u sed to interpret th is result as normal/abnormal . WBC, UA (test code = <5 See_Comment [Autom ated message] 16214-7) The system [employer] generated this result transmit perlita reference range : /HPF. The refer ence range was not u sed to interpret th is result as normal/abnormal . SQUAMOUS EPITHELIAL <5 See_Comment [Automa perlita message] (test code = 08801-0) The sy stem which generated this result transmit perlita reference range : /HPF. The refer ence range was not u sed to interpret th is result as normal/abnormal . Specimen Source (test code = 2795) Lab Interpretation Abnormal (test code = 94533-3) [facility]/[id number] 06:00:27 Test Item Value Reference Range Interpretation Comments Color, UA (test code = Brown 5778-6) Clarity, UA (test code Clear = 5767-9) Specific [place], UA 1.025 1.001-1.035 (test code = 5811-5) pH, UA (test code = 5.5 5.0-8.0 5803-2) Protein, UA (test code Trace Negative A = 18659-3) Glucose, UA (test code Negative Negative = 365) Ketones, UA (test code Trace Negative A = 2514-8) Bilirubin, UA (test Positive Negative A code = 75302-4) Blood, UA (test code = Negative Negative 62550-5) Nitrite, UA (test code Positive Negative A RESUL T MAY BE = 5802-4) INACCURATE DUE TO COLOR INTERFERE NCE. Leukocytes, UA (test Negative Negative code = 5799-2) Urobilinogen, UA (test 1.0 mg/dL 0.2-1.0 code = 51047-7) Bacteria, UA (test code Occasional = 20732-8) Mucus (test code = Occasional 8247-9) Ca Oxalate Casi, UA Occasional (test code = 59795-4) RBC, UA (test code = <5 See_Comment [Autom ated message] 799-7) The system [employer] generated this result transmit perlita reference range : /HPF. The refer ence range was not u sed to interpret th is result as normal/abnormal . WBC, UA (test code = <5 See_Comment [Autom ated message] 28972-2) The system [employer] generated this result transmit perlita reference range : /HPF. The refer ence range was not u sed to interpret th is result as normal/abnormal . SQUAMOUS EPITHELIAL <5 See_Comment [Automa perlita message] (test code = 99747-8) The sy stem which generated this result transmit perlita reference range : /HPF. The refer ence range was not u sed to interpret th is result as normal/abnormal . Specimen Source (test code = 2795) Lab Interpretation Abnormal (test code = 49965-5) [facility]/[id number] 06:00:27 Test Item Value Reference Range Interpretation Comments Color, UA (test code = Brown 5778-6) Clarity, UA (test code Clear = 5767-9) Specific [place], UA 1.025 1.001-1.035 (test code = 5811-5) pH, UA (test code = 5.5 5.0-8.0 5803-2) Protein, UA (test code Trace Negative A = 88854-9) Glucose, UA (test code Negative Negative = 365) Ketones, UA (test code Trace Negative A = 2514-8) Bilirubin, UA (test Positive Negative A code = 81854-4) Blood, UA (test code = Negative Negative 11731-5) Nitrite, UA (test code Positive Negative A RESUL T MAY BE = 5802-4) INACCURATE DUE TO COLOR INTERFERE NCE. Leukocytes, UA (test Negative Negative code = 5799-2) Urobilinogen, UA (test 1.0 mg/dL 0.2-1.0 code = 29507-8) Bacteria, UA (test code Occasional = 60145-0) Mucus (test code = Occasional 8247-9) Ca Oxalate Casi, UA Occasional (test code = 74455-6) RBC, UA (test code = <5 See_Comment [Autom ated message] 799-7) The system SkyWire generated this result transmit perlita reference range : /HPF. The refer ence range was not u sed to interpret th is result as normal/abnormal . WBC, UA (test code = <5 See_Comment [Autom ated message] 38632-7) The system SkyWire generated this result transmit perlita reference range : /HPF. The refer ence range was not u sed to interpret th is result as normal/abnormal . SQUAMOUS EPITHELIAL <5 See_Comment [Automa perlita message] (test code = 25186-2) The sy stem which generated this result transmit perlita reference range : /HPF. The refer ence range was not u sed to interpret th is result as normal/abnormal . Specimen Source (test code = 2795) Lab Interpretation Abnormal (test code = 48005-9) [id number] 06:00:27 Test Item Value Reference Range Interpretation Comments Color, UA (test code = Brown 5778-6) Clarity, UA (test code Clear = 5767-9) Specific [place], UA 1.025 1.001-1.035 (test code = 5811-5) pH, UA (test code = 5.5 5.0-8.0 5803-2) Protein, UA (test code Trace Negative A = 68430-3) Glucose, UA (test code Negative Negative = 365) Ketones, UA (test code Trace Negative A = 2514-8) Bilirubin, UA (test Positive Negative A code = 45717-7) Blood, UA (test code = Negative Negative 67140-8) Nitrite, UA (test code Positive Negative A RESUL T MAY BE = 5802-4) INACCURATE DUE TO COLOR INTERFERE NCE. Leukocytes, UA (test Negative Negative code = 5799-2) Urobilinogen, UA (test 1.0 mg/dL 0.2-1.0 code = 84662-9) Bacteria, UA (test code Occasional = 04726-4) Mucus (test code = Occasional 8247-9) Ca Oxalate Casi, UA Occasional (test code = 42229-9) RBC, UA (test code = <5 See_Comment [Autom ated message] 799-7) The system SkyWire generated this result transmit perlita reference range : /HPF. The refer ence range was not u sed to interpret th is result as normal/abnormal . WBC, UA (test code = <5 See_Comment [Autom ated message] 87227-4) The system SkyWire generated this result transmit perlita reference range : /HPF. The refer ence range was not u sed to interpret th is result as normal/abnormal . SQUAMOUS EPITHELIAL <5 See_Comment [Automa perlita message] (test code = 74632-8) The sy stem which generated this result transmit perlita reference range : /HPF. The refer ence range was not u sed to interpret th is result as normal/abnormal . Specimen Source (test code = 2795) Lab Interpretation Abnormal (test code = 10188-6) [facility]/[id number] 06:00:27 Test Item Value Reference Range Interpretation Comments Color, UA (test code = Brown 5778-6) Clarity, UA (test code Clear = 5767-9) Specific [place], UA 1.025 1.001-1.035 (test code = 5811-5) pH, UA (test code = 5.5 5.0-8.0 5803-2) Protein, UA (test code Trace Negative A = 27934-8) Glucose, UA (test code Negative Negative = 365) Ketones, UA (test code Trace Negative A = 2514-8) Bilirubin, UA (test Positive Negative A code = 89071-7) Blood, UA (test code = Negative Negative 70464-3) Nitrite, UA (test code Positive Negative A RESUL T MAY BE = 5802-4) INACCURATE DUE TO COLOR INTERFERE NCE. Leukocytes, UA (test Negative Negative code = 5799-2) Urobilinogen, UA (test 1.0 mg/dL 0.2-1.0 code = 54141-8) Bacteria, UA (test code Occasional = 56016-3) Mucus (test code = Occasional 8247-9) Ca Oxalate Casi, UA Occasional (test code = 86182-6) RBC, UA (test code = <5 See_Comment [Autom ated message] 799-7) The system SkyWire generated this result transmit perlita reference range : /HPF. The refer ence range was not u sed to interpret th is result as normal/abnormal . WBC, UA (test code = <5 See_Comment [Autom ated message] 34411-9) The system SkyWire generated this result transmit perlita reference range : /HPF. The refer ence range was not u sed to interpret th is result as normal/abnormal . SQUAMOUS EPITHELIAL <5 See_Comment [Automa perlita message] (test code = 07660-5) The sy stem which generated this result transmit perlita reference range : /HPF. The refer ence range was not u sed to interpret th is result as normal/abnormal . Specimen Source (test code = 2795) Lab Interpretation Abnormal (test code = 08334-2) [facility]/[id number] 06:00:27 Test Item Value Reference Range Interpretation Comments Color, UA (test code = Brown 5778-6) Clarity, UA (test code Clear = 5767-9) Specific [place], UA 1.025 1.001-1.035 (test code = 5811-5) pH, UA (test code = 5.5 5.0-8.0 5803-2) Protein, UA (test code Trace Negative A = 74378-7) Glucose, UA (test code Negative Negative = 365) Ketones, UA (test code Trace Negative A = 2514-8) Bilirubin, UA (test Positive Negative A code = 50548-1) Blood, UA (test code = Negative Negative 21608-1) Nitrite, UA (test code Positive Negative A RESUL T MAY BE = 5802-4) INACCURATE DUE TO COLOR INTERFERE NCE. Leukocytes, UA (test Negative Negative code = 5799-2) Urobilinogen, UA (test 1.0 mg/dL 0.2-1.0 code = 12951-0) Bacteria, UA (test code Occasional = 60971-9) Mucus (test code = Occasional 8247-9) Ca Oxalate Casi, UA Occasional (test code = 60308-2) RBC, UA (test code = <5 See_Comment [Autom ated message] 799-7) The system SkyWire generated this result transmit perlita reference range : /HPF. The refer ence range was not u sed to interpret th is result as normal/abnormal . WBC, UA (test code = <5 See_Comment [Autom ated message] 95150-1) The system SkyWire generated this result transmit perlita reference range : /HPF. The refer ence range was not u sed to interpret th is result as normal/abnormal . SQUAMOUS EPITHELIAL <5 See_Comment [Automa perlita message] (test code = 31803-3) The sy stem which generated this result transmit perlita reference range : /HPF. The refer ence range was not u sed to interpret th is result as normal/abnormal . Specimen Source (test code = 2795) Lab Interpretation Abnormal (test code = 68780-1) [facility]/[id number] 06:00:27 Test Item Value Reference Range Interpretation Comments Color, UA (test code = Brown 5778-6) Clarity, UA (test code Clear = 5767-9) Specific [place], UA 1.025 1.001-1.035 (test code = 5811-5) pH, UA (test code = 5.5 5.0-8.0 5803-2) Protein, UA (test code Trace Negative A = 52359-4) Glucose, UA (test code Negative Negative = 365) Ketones, UA (test code Trace Negative A = 2514-8) Bilirubin, UA (test Positive Negative A code = 57481-3) Blood, UA (test code = Negative Negative 52626-1) Nitrite, UA (test code Positive Negative A RESUL T MAY BE = 5802-4) INACCURATE DUE TO COLOR INTERFERE NCE. Leukocytes, UA (test Negative Negative code = 5799-2) Urobilinogen, UA (test 1.0 mg/dL 0.2-1.0 code = 81005-4) Bacteria, UA (test code Occasional = 77594-1) Mucus (test code = Occasional 8247-9) Ca Oxalate Casi, UA Occasional (test code = 21554-2) RBC, UA (test code = <5 See_Comment [Autom ated message] 799-7) The system SkyWire generated this result transmit perlita reference range : /HPF. The refer ence range was not u sed to interpret th is result as normal/abnormal . WBC, UA (test code = <5 See_Comment [Autom ated message] 50893-8) The system Sky[employer] generated this result transmit perlita reference range : /HPF. The refer ence range was not u sed to interpret th is result as normal/abnormal . SQUAMOUS EPITHELIAL <5 See_Comment [Automa perlita message] (test code = 28066-0) The sy stem which generated this result transmit perlita reference range : /HPF. The refer ence range was not u sed to interpret th is result as normal/abnormal . Specimen Source (test code = 2795) Lab Interpretation Abnormal (test code = 83930-9) [facility] [id number] 06:00:27 Test Item Value Reference Range Interpretation [...] = 1663) SOURCE(BEAKER) (test code = 2795) [id number] 05:07:34 Test Item Value Reference Range Interpretation Comments Magnesium (test code = 2.4 mg/dL 1.5-3.0 Speci men 93180-1) slightly hemolyzed PENNY (test code = PENNY) [employer] Officer ID - MABLE Lab Interpretation Normal (test code = 74052-2) [facility] Test Item Value Reference Range Interpretation Comments Magnesium (test code = 2.4 mg/dL 1.5-3.0 Speci men 22648-5) slightly hemolyzed PENNY (test code = PENNY) [employer] Systems Officer ID - MABLE Lab Interpretation Normal (test code = 40405-6) [facility] 05:07:34 Test Item Value Reference Range Interpretation Comments Magnesium (test code = 2.4 mg/dL 1.5-3.0 Speci men 87554-9) slightly hemolyzed PENNY (test code = PENNY) [employer] Systems Officer ID - MABLE Lab Interpretation Normal (test code = 54676-6) [facility] 05:07:[facility] Test Item Value Reference Range Interpretation Comments Magnesium (test code = 2.4 mg/dL 1.5-3.0 Speci men 14575-1) slightly hemolyzed PENNY (test code = PENNY) [employer] Systems Officer ID - MABLE Lab Interpretation Normal (test code = 97476-5) [facility] 05:07:34 Test Item Value Reference Range Interpretation Comments Magnesium (test code = 2.4 mg/dL 1.5-3.0 Speci men 44670-0) slightly hemolyzed PENNY (test code = PENNY) [employer] Systems Officer ID - MABLE Lab Interpretation Normal (test code = 36325-4) [facility] Test Item Value Reference Range Interpretation Comments Magnesium (test code = 2.4 mg/dL 1.5-3.0 Speci men 83571-4) slightly hemolyzed PENNY (test code = PENNY) [employer] Systems Officer ID - MABLE Lab Interpretation Normal (test code = 35668-8) [facility]2022-01-09 05:07:34 Test Item Value Reference Range Interpretation Comments Magnesium (test code = 2.4 mg/dL 1.5-3.0 Speci men 33960-1) slightly hemolyzed PENNY (test code = PENNY) [employer] Systems Officer ID - MABLE Lab Interpretation Normal (test code = 11259-2) [facility] 05:07:[facility] Test Item Value Reference Range Interpretation Comments Magnesium (test code = 2.4 mg/dL 1.5-3.0 Speci men 87948-2) slightly hemolyzed PENNY (test code = PENNY) [employer] Systems Officer ID - MABLE Lab Interpretation Normal (test code = 50478-7) [facility] 05:07:34 Test Item Value Reference Range Interpretation Comments Magnesium (test code = 2.4 mg/dL 1.5-3.0 Speci men 89301-7) slightly hemolyzed PENNY (test code = PENNY) [employer] Systems Officer ID - MABLE Lab Interpretation Normal (test code = 28807-8) [facility]2022-01-09 05:07:34 Test Item Value Reference Range Interpretation Comments MAGNESIUM (BEAKER) 2.4 mg/dL 1.5-3.0 Specimen slightly (test code = 627) hemolyzed [employer] Officer ID - [id number] 05:05:32 Test Item Value Reference Range Interpretation Comments Phosphorus (test code 2.8 mg/dL 2.5-4.5 Specim en = 2777-1) slightly hemolyzed PENNY (test code = PENNY) [employer] Officer ID - MABLE Lab Interpretation Normal (test code = 40797-0) [facility] 05:05:[facility] Test Item Value Reference Range Interpretation Comments Phosphorus (test code 2.8 mg/dL 2.5-4.5 Specim en = 2777-1) slightly hemolyzed PENNY (test code = PENNY) [employer] Officer ID - MABLE Lab Interpretation Normal (test code = 02104-4) [facility] 05:05:32 Test Item Value Reference Range Interpretation Comments Phosphorus (test code 2.8 mg/dL 2.5-4.5 Specim en = 2777-1) slightly hemolyzed PENNY (test code = PENNY) [employer] Officer ID - MABLE Lab Interpretation Normal (test code = 63888-0) [facility] 05:05:32 Test Item Value Reference Range Interpretation Comments Phosphorus (test code 2.8 mg/dL 2.5-4.5 Specim en = 2777-1) slightly hemolyzed PENNY (test code = PENNY) [employer] Officer ID - MABLE Lab Interpretation Normal (test code = 63535-2) [facility] 05:05:32 Test Item Value Reference Range Interpretation Comments Phosphorus (test code 2.8 mg/dL 2.5-4.5 Specim en = 2777-1) slightly hemolyzed PENNY (test code = PENNY) [employer] Officer ID - MABLE Lab Interpretation Normal (test code = 89895-4) [facility] 05:05:32 Test Item Value Reference Range Interpretation Comments Phosphorus (test code 2.8 mg/dL 2.5-4.5 Specim en = 2777-1) slightly hemolyzed PENNY (test code = PENNY) [employer] Officer ID - MABLE Lab Interpretation Normal (test code = 09846-8) [facility] 05:05:32 Test Item Value Reference Range Interpretation Comments Phosphorus (test code 2.8 mg/dL 2.5-4.5 Specim en = 2777-1) slightly hemolyzed PENNY (test code = PENNY) [employer] Officer ID - MABLE Lab Interpretation Normal (test code = 88600-6) [facility] 05:05:32 Test Item Value Reference Range Interpretation Comments Phosphorus (test code 2.8 mg/dL 2.5-4.5 Specim en = 2777-1) slightly hemolyzed PENNY (test code = PENNY) [employer] Officer ID - MABLE Lab Interpretation Normal (test code = 33447-8) [facility] 05:05:32 Test Item Value Reference Range Interpretation Comments Phosphorus (test code 2.8 mg/dL 2.5-4.5 Specim en = 2777-1) slightly hemolyzed PENNY (test code = PENNY) [employer] Officer ID - MABLE Lab Interpretation Normal (test code = 17729-2) [facility] 05:05:32 Test Item Value Reference Range Interpretation Comments PHOSPHORUS (BEAKER) 2.8 mg/dL 2.5-4.5 Specimen slightly (test code = 604) hemolyzed [employer] Officer ID - LITOCT, CHEST, [id number] 04:55:00Unlisted Reason for Exam - Click Yes and Enter Reason Below->YesUnlisted Reason for Exam->[facility] 1945 Sex: FFINAL [...] biopsy. Mild pulmonary emphysema. Signed: Darion Handley [facility] Verified Date/Time: 06/14/2021 04:55:13 [id number] 04:48:26 Test Item Value Reference Range Interpretation Comments PTT (test code = 61839-5) 26.9 See_Comment Fi nal Information (Auto Output) [Automated mess age] The system SkyWire generated this result transmitted ref erence range: 23.0 - 3 5.0 seconds. The re ference range was not u sed to interpret this result as normal/abnor mal. Lab Interpretation (test Normal code = 98422-7) [facility] 04:48:26 Test Item Value Reference Range Interpretation Comments PTT (test code = 51287-0) 26.9 See_Comment Fi nal Information (Auto Output) [Automated mess age] The system SkyWire generated this result transmitted ref erence range: 23.0 - 3 5.0 seconds. The re ference range was not u sed to interpret this result as normal/abnor mal. Lab Interpretation (test Normal code = 42020-4) [facility] 04:48:26 Test Item Value Reference Range Interpretation Comments PTT (test code = 20075-6) 26.9 See_Comment Fi nal Information (Auto Output) [Automated mess age] The system SkyWire generated this result transmitted ref erence range: 23.0 - 3 5.0 seconds. The re ference range was not u sed to interpret this result as normal/abnor mal. Lab Interpretation (test Normal code = 07519-2) [facility] Test Item Value Reference Range Interpretation Comments PTT (test code = 95872-5) 26.9 See_Comment Fi nal Information (Auto Output) [Automated mess age] The system SkyWire generated this result transmitted ref erence range: 23.0 - 3 5.0 seconds. The re ference range was not u sed to interpret this result as normal/abnor mal. Lab Interpretation (test Normal code = 68131-2) [facility] 04:48:26 Test Item Value Reference Range Interpretation Comments PTT (test code = 99150-3) 26.9 See_Comment Fi nal Information (Auto Output) [Automated mess age] The system SkyWire generated this result transmitted ref erence range: 23.0 - 3 5.0 seconds. The re ference range was not u sed to interpret this result as normal/abnor mal. Lab Interpretation (test Normal code = 92314-8) [facility] 04:48:26 Test Item Value Reference Range Interpretation Comments PTT (test code = 44511-4) 26.9 See_Comment Fi nal Information (Auto Output) [Automated mess age] The system SkyWire generated this result transmitted ref erence range: 23.0 - 3 5.0 seconds. The re ference range was not u sed to interpret this result as normal/abnor mal. Lab Interpretation (test Normal code = 11177-0) [facility] 04:48:26 Test Item Value Reference Range Interpretation Comments PTT (test code = 98131-8) 26.9 See_Comment Fi nal Information (Auto Output) [Automated mess age] The system SkyWire generated this result transmitted ref erence range: 23.0 - 3 5.0 seconds. The re ference range was not u sed to interpret this result as normal/abnor mal. Lab Interpretation (test Normal code = 79645-6) [facility] 04:48:26 Test Item Value Reference Range Interpretation Comments PTT (test code = 62685-5) 26.9 See_Comment Fi nal Information (Auto Output) [Automated mess age] The system SkyWire generated this result transmitted ref erence range: 23.0 - 3 5.0 seconds. The re ference range was not u sed to interpret this result as normal/abnor mal. Lab Interpretation (test Normal code = 54851-1) [facility] 04:48:26 Test Item Value Reference Range Interpretation Comments PTT (test code = 72339-7) 26.9 See_Comment Fi nal Information (Auto Output) [Automated mess age] The system SkyWire generated this result transmitted ref erence range: 23.0 - 3 5.0 seconds. The re ference range was not u sed to interpret this result as normal/abnor mal. Lab Interpretation (test Normal code = 96610-1) [facility] 04:48:26 Test Item Value Reference Range Interpretation Comments PARTIAL THROMBOPLASTIN 26.9 seconds 23.0-35.0 Final Information TIME (BEAKER) (test (Auto Ou tput) code = 760) PROTHROMBIN TIME/[id number] 04:48:25 Test Item Value Reference Range Interpretation Comments PROTIME (BEAKER) 10.6 seconds 9.3-12.0 Final Infor mation (test code = 759) (Auto Outp ut) INR (BEAKER) (test 0.95 See_Comment Final Inf ormation code = 370) (Auto Output) [Automated mess age] The system SkyWire generated this result transmitted ref erence range: <=5.90. The reference range was not used to int erpret this result as normal/abnormal . RECOMMENDED COUMADIN/WARFARIN INR THERAPY RANGESSTANDARD DOSE: 2.0 - 3.0 Includes: PROPHYLAXIS for venous thrombosis, systemic embolization; TREATMENT for venous thrombosis and/or pulmonary embolus.HIGH RISK: Target INR is 2.5-3.5 for patients with mechanical heart valves.Lactic acid, [id number] 03:49:01 Test Item Value Reference Range Interpretation Comments Lactate, Venous (test 1.20 mmol/L 0.50-2.00 code = 2872) PENNY (test code = PENNY) [employer] Officer ID - LITOOperator ID - LITOOperator ID - LITOOperator ID - MABLE Lab Interpretation (test Normal code = 78311-6) [id number] 03:49:01 Test Item Value Reference Range Interpretation Comments Lactate, Venous (test 1.20 mmol/L 0.50-2.00 code = 2872) PENNY (test code = PENNY) [employer] Officer ID - LITOOperator ID - LITOOperator ID - LITOOperator ID - MABLE Lab Interpretation (test Normal code = 41611-6) [facility] [id number] 03:49:01 Test Item Value Reference Range Interpretation Comments Lactate, Venous (test 1.20 mmol/L 0.50-2.00 code = 2872) PENNY (test code = PENNY) [employer] Systems Officer ID - LITOOperator ID - LITOOperator ID - LITOOperator ID - MABLE Lab Interpretation (test Normal code = 88053-2) [facility] [id number] 03:49:01 Test Item Value Reference Range Interpretation Comments Lactate, Venous (test 1.20 mmol/L 0.50-2.00 code = 2872) PENNY (test code = PENNY) [employer] Systems Officer ID - LITOOperator ID - LITOOperator ID - LITOOperator ID - MABLE Lab Interpretation (test Normal code = 19662-1) [facility] [id number] 03:49:01 Test Item Value Reference Range Interpretation Comments Lactate, Venous (test 1.20 mmol/L 0.50-2.00 code = 2872) PENNY (test code = PENNY) [employer] Systems Officer ID - LITOOperator ID - LITOOperator ID - LITOOperator ID - MABLE Lab Interpretation (test Normal code = 86849-2) [facility] [id number] 03:49:01 Test Item Value Reference Range Interpretation Comments Lactate, Venous (test 1.20 mmol/L 0.50-2.00 code = 2872) PENNY (test code = PENNY) [employer] Systems Officer ID - LITOOperator ID - LITOOperator ID - LITOOperator ID - MABLE Lab Interpretation (test Normal code = 28673-7) [facility], [id number] 03:49:01 Test Item Value Reference Range Interpretation Comments Lactate, Venous (test 1.20 mmol/L 0.50-2.00 code = 2872) PENNY (test code = PENNY) [employer] Systems Officer ID - LITOOperator ID - LITOOperator ID - LITOOperator ID - MABLE Lab Interpretation (test Normal code = 47360-1) [facility] acid, [id number] 03:49:01 Test Item Value Reference Range Interpretation Comments Lactate, Venous (test 1.20 mmol/L 0.50-2.00 code = 2872) PENNY (test code = PENNY) [employer] Systems Officer ID - LITOOperator ID - LITOOperator ID - LITOOperator ID - MABLE Lab Interpretation (test Normal code = 94700-4) [facility] [id number] 03:49:01 Test Item Value Reference Range Interpretation Comments Lactate, Venous (test 1.20 mmol/L 0.50-2.00 code = 2872) PENNY (test code = PENNY) [employer] Systems Officer ID - LITOOperator ID - LITOOperator ID - LITOOperator ID - MABLE Lab Interpretation (test Normal code = 81806-5) [facility] [id number] 03:49:01 Test Item Value Reference Range Interpretation Comments LACTATE BLOOD 1.20 mmol/L See_Comment [Automated me ssage] VENOUS (2) (BEAKER) The syst em which (test code = 2872) generated this result transmitted ref erence range: 0.50-<2. 00. The reference range was not used to interpr et this result as normal/abnormal . [employer] Systems Officer ID - LITOOperator ID - LITOOperator ID - LITOOperator ID - MABLE SARS-COV2/RT-PCR ([facility])2021-06-14 03:36:59 Test Item Value Reference Range Interpretation Comments SARS-COV2/RT-PCR Negative Negative The SARS-Co V-2 target (test code = nucleic acids a re not 0997649) detected in thi s specimen. Negative result [...] revoked sooner. Fact Sheet for Healthcare Providers: https://www.[employer] [employer]/Documents/Xpert%20Xpress%20SARS%20CoV-2/Fact%20Sheets/3023802%35ANTB-QVI-1%20 HEALTHCARE%20PROVIDERS%20FACT%20SHEET.pdf Fact Sheet for Healthcare Patients: https://www.[employer]/Documents/Xpert%20Xp ress%20SARS%20CoV-2/Fact%20Sheets/3023801%21JTDI-WPL-6%20PATIENT%20FACT%20SHEET .pdfRAD, CHEST, 1 VIEW, NON [id number] 03:33:00Reason for exam:->BACK PAINPt reports chronic back pain from MS, states it is worse than before.Should this be performed at the bedside?->Yes [facility] 1945 [...] withCT chest is recommended. Signed: Darion Handley [facility] Verified Date/Time: 06/14/2021 03:33:05 BASIC METABOLIC [id number] 03:16:48 Test Item Value Reference Range Interpretation [...] S NOT APPLICABLE FOR DIALYSIS PATIEN TS. Combat Systems Officer ID - LITOOperator ID - LITOOperator ID - LITOOperator ID - LITOOperator ID - LITOOperator ID - LITOOperator ID - LITOOperator ID - LITOOperator ID - LITOOperator ID - LITOOperator ID - LITOOperator ID - LITOOperator ID - LITOCBC W/PLT COUNT & AUTO [id number] 02:56:39 Test Item Value Reference Range Interpretation [...] (test code = 2801) MR, SPINE, LUMBAR, [id number] 20:43:00With general anesthesiaUnlisted Reason for Exam - Click Yes and Enter Reason Below->YesUnlisted Reason for Exam- >Chronic bilateral low back pain without sciatica [facility] CENTERName: ASHLIE HUERTAS : 1945 Sex: FFINAL REPORT MR, SPINE, LUMBAR, WITH \\T\\ WITHOUT CONTRAST INDICATION: UnlistedReason for ExamChronic bilateral low back pain without sciatica TECHNIQUE: Multiplanar, multisequence MRI of the lumbar spine with and without intravenous contrast. COMPARISON: None FINDINGS:Nomenclature: L5-S1 is series [id number] image 3. Alignment: Straightening of lumbar lordosis. Vertebral bodies: Vertebral body heights are maintained. Degenerative loss of intervertebral disc spaces throughout. Small Schmorl's nodes. No marrow edema. No aggressive osseous [...] bilateral subarticular recesses. Mild bilateral foraminal stenosis. L3-4: Circumferential disc bulge. Moderate facet arthropathy. Mild to moderate canal stenosis. Severe stenosis of bilateral subarticular recesses. Moderate bilateral foraminal stenosis. L4-5: Circumferential disc bulge. Severe facet arthropathy. Mild canal stenosis. Severe stenosis of bilateral subarticular recesses. Moderate bilateral foraminal stenosis. L5-S1: Circumferential disc bulge. Severe facet arthropathy. Mild canal stenosis. Severe stenosis of bilateral subarticular recesses. Severe bilateral foraminal stenosis. 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 Signed: Pratibha Ng [facility] Verified Date/Time: 06/10/2021 20:43:35 Electronically signed by: PRATIBHA NG MD on 10/2021 08:43 [facility] MET[facility]OLIC [id number] 11:45:05 Test Item Value Reference Range Interpretation [...] mg/dL 8.4-10.2 (test code = 697) EGFR (BEABIGAIL) (test 86 mL/min/1.73 ESTIMA PERLITA GFR IS code = 1092) sq m NOT ACCURATE CREATININE CLEARANCE IN PREDICTING GLOMERULAR FILTRATION RATE . ESTIMATED GFR I S NOT APPLICABLE FOR DIALYSIS PATIEN TS. Combat Systems Officer ID - ANDREW MSARS-COV2/RT-PCR ([facility])2021-06-09 03:25:01 Test Item Value Reference Range Interpretation Comments SARS-COV2/RT-PCR (test Negative Not Detected, Negative, See code = 8619918) external report for linked test Negative result [...] 564(g) of the Act.Testing was performed using [employer] SARS-CoV-2 assay.Fact Sheet for Healthcare Providers:https://www.[employer].Stem/jamison/RT SARS-CoV-2 HCP Fact Sheet 51- 769884.pdfFact Sheet for Healthcare Patients:https://www.[employer].Stem/jamison/RT SARS-CoV-2 Patient Fact Sheet EN 51-237508W9.pdfRENEE [place] [id number] 18:39:00 Test Item Value Reference Range Interpretation Comments Glucose Lvl (test code = Glucose Lvl) 82 70-99 [place] 630931-11-16 18:39:00 Test Item Value Reference Range Interpretation Comments BUN (test code = BUN) 15 7-22 [place] [address]-11-16 18:39:00 Test Item Value Reference Range Interpretation Comments Creatinine Lvl (test code = Creatinine 0.82 0.50-1.40 Lvl) [place] 630931-11-16 18:39:00 Test Item Value Reference Range Interpretation Comments Sodium Lvl (test code = Sodium Lvl) 141 135-145 [place] 630931-11-16 18:39:00 Test Item Value Reference Range Interpretation Comments Potassium Lvl (test code = Potassium 4.9 3.5-5.1 Lvl) [place] [address]-11-16 18:39:00 Test Item Value Reference Range Interpretation Comments Chloride Lvl (test code = Chloride Lvl) 109 95-109 [place] 630931-11-16 18:39:00 Test Item Value Reference Range Interpretation Comments CO2 (test code = CO2) 29 24-32 [place] 630931-11-16 18:39:00 Test Item Value Reference Range Interpretation Comments Calcium Lvl (test code = Calcium Lvl) 9.0 8.5-10.5 [place] [address]-11-16 18:39:00 Test Item Value Reference Range Interpretation Comments AGAP (test code = AGAP) 7.9 10.0-20.0 [place] 630931-11-16 18:39:00 Test Item Value Reference Range Interpretation Comments eGFR (test code = eGFR) 70 [place] 630931-11-16 18:39:00 Test Item Value Reference Range Interpretation Comments Albumin Lvl (test code = Albumin Lvl) 3.3 3.5-5.0 [address]11-16 18:39:00 Test Item Value Reference Range Interpretation Comments Segs (test code = Segs) 50.0 45.0-75.0 [place] [address]-11-16 18:39:00 Test Item Value Reference Range Interpretation Comments Lymphocytes (test code = Lymphocytes) 34.8 20.0-40.0 [place] [address]-11-16 18:39:00 Test Item Value Reference Range Interpretation Comments Monocytes (test code = Monocytes) 8.3 2.0-12.0 [place] [address]-11-16 18:39:00 Test Item Value Reference Range Interpretation Comments Eosinophils (test code = 5.9 See_Comment [A utomated message] The Eosinophils) system which ge nerated this result tra nsmitted reference range : <=4.0. The reference r therese was not used to int erpret this result as normal/abnormal . [place] [address]-11-16 18:39:00 Test Item Value Reference Range Interpretation Comments Basophils (test code = 1.0 See_Comment [Aut omated message] The Basophils) system which ge nerated this result tra nsmitted reference range : <=1.0. The reference r therese was not used to int erpret this result as normal/abnormal . [place] [address]-11-16 18:39:00 Test Item Value Reference Range Interpretation Comments Neutrophils # (test code = Neutrophils 3.6 1.5-8.1 #) [place] [address]-11-16 18:39:00 Test Item Value Reference Range Interpretation Comments Lymphocytes # (test code = Lymphocytes 2.5 1.0-5.5 #) [place] [address]-11-16 18:39:00 Test Item Value Reference Range Interpretation Comments Monocytes # (test code 0.6 See_Comment [Aut omated message] The = Monocytes #) system which generated this result tra nsmitted reference range : <=0.8. The reference r therese was not used to int erpret this result as normal/abnormal . [place] [address]-11-16 18:39:00 Test Item Value Reference Range Interpretation Comments Eosinophils # (test code 0.4 See_Comment [A utomated message] The = Eosinophils #) system whic h generated this result tra nsmitted reference range : <=0.5. The reference r therese was not used to int erpret this result as normal/abnormal . [facility] CenterTjkxpseARUABIWPQI7051-40-83 18:39:00 Test Item Value Reference Range Interpretation Comments Basophils # (test code 0.1 See_Comment [Aut omated message] The = Basophils #) system which generated this result tra nsmitted reference range : <=0.2. The reference r therese was not used to int erpret this result as normal/abnormal . [facility] CenterEsanxniAUILSGOETX5394-09-64 18:39:00 Test Item Value Reference Range Interpretation Comments WBC (test code = WBC) 7.3 3.7-10.4 [facility] CenterRcndofpXHCBUDTZID6916-40-54 18:39:00 Test Item Value Reference Range Interpretation Comments RBC (test code = RBC) 4.01 4.20-5.40 [facility] CenterOlhtskyNSBYPGYFLK5215-72-65 18:39:00 Test Item Value Reference Range Interpretation Comments Hgb (test code = Hgb) 11.8 12.0-16.0 [place] 376921-11-16 18:39:00 Test Item Value Reference Range Interpretation Comments Hct (test code = Hct) 35.1 36.0-48.0 [facility] CenterNiusbnlVWEZBCDUUW8025-07-05 18:39:00 Test Item Value Reference Range Interpretation Comments MCV (test code = MCV) 87.5 80.0-98.0 [facility] CenterGzdvcjkKVAYPHLIPJ0145-67-73 18:39:00 Test Item Value Reference Range Interpretation Comments MCH (test code = MCH) 29.5 pg 27.0-31.0 [facility] CenterJlcdjqjNSXSBEJANH4018-77-18 18:39:00 Test Item Value Reference Range Interpretation Comments MCHC (test code = MCHC) 33.7 32.0-36.0 [facility] CenterBuqmgzlRKJLYUUQKU2951-18-16 18:39:00 Test Item Value Reference Range Interpretation Comments RDW (test code = RDW) 13.6 11.5-14.5 [facility] CenterUqxejzvNMDISVMVZQ8180-11-77 18:39:00 Test Item Value Reference Range Interpretation Comments Platelet (test code = Platelet) 401 133-450 [facility] CenterMnxxzdxUUAJZVRFVQ0506-88-18 18:39:00 Test Item Value Reference Range Interpretation Comments MPV (test code = MPV) 8.4 7.4-10.4 [place] 630931-11-16 18:39:00 Test Item Value Reference Range Interpretation Comments Glucose Lvl (test code = Glucose Lvl) 82 70-99 [place] 630931-11-16 18:39:00 Test Item Value Reference Range Interpretation Comments BUN (test code = BUN) 15 7-22 [place] 630931-11-16 18:39:00 Test Item Value Reference Range Interpretation Comments Creatinine Lvl (test code = Creatinine 0.82 0.50-1.40 Lvl) [place] 630931-11-16 18:39:00 Test Item Value Reference Range Interpretation Comments Sodium Lvl (test code = Sodium Lvl) 141 135-145 [place] 630931-11-16 18:39:00 Test Item Value Reference Range Interpretation Comments Potassium Lvl (test code = Potassium 4.9 3.5-5.1 Lvl) [place] 630931-11-16 18:39:00 Test Item Value Reference Range Interpretation Comments Chloride Lvl (test code = Chloride Lvl) 109 95-109 [place] 630931-11-16 18:39:00 Test Item Value Reference Range Interpretation Comments CO2 (test code = CO2) 29 24-32 [place] 630931-11-16 18:39:00 Test Item Value Reference Range Interpretation Comments Calcium Lvl (test code = Calcium Lvl) 9.0 8.5-10.5 [place] 630931-11-16 18:39:00 Test Item Value Reference Range Interpretation Comments AGAP (test code = AGAP) 7.9 10.0-20.0 [place] 630931-11-16 18:39:00 Test Item Value Reference Range Interpretation Comments eGFR (test code = eGFR) 70 [place] 630931-11-16 18:39:00 Test Item Value Reference Range Interpretation Comments Albumin Lvl (test code = Albumin Lvl) 3.3 3.5-5.0 [place] 376921-11-16 18:39:00 Test Item Value Reference Range Interpretation Comments Segs (test code = Segs) 50.0 45.0-75.0 [place] 376921-11-16 18:39:00 Test Item Value Reference Range Interpretation Comments Lymphocytes (test code = Lymphocytes) 34.8 20.0-40.0 [facility] CenterSwiwbfsZOJSPXVZFA0850-41-45 18:39:00 Test Item Value Reference Range Interpretation Comments Monocytes (test code = Monocytes) 8.3 2.0-12.0 [facility] CenterKwfnxngFSQWLNMHUP7292-54-64 18:39:00 Test Item Value Reference Range Interpretation Comments Eosinophils (test code = 5.9 See_Comment [A utomated message] The Eosinophils) system which ge nerated this result tra nsmitted reference range : <=4.0. The reference r therese was not used to int erpret this result as normal/abnormal . [facility] CenterZyjwyltRMXBIYSVWK6141-68-95 18:39:00 Test Item Value Reference Range Interpretation Comments Basophils (test code = 1.0 See_Comment [Aut omated message] The Basophils) system which ge nerated this result tra nsmitted reference range : <=1.0. The reference r therese was not used to int erpret this result as normal/abnormal . [facility] CenterDluizqeKTRGDOZRRH6581-23-94 18:39:00 Test Item Value Reference Range Interpretation Comments Neutrophils # (test code = Neutrophils 3.6 1.5-8.1 #) [facility] CenterSxlolosAEYUXOSTWI3362-92-38 18:39:00 Test Item Value Reference Range Interpretation Comments Lymphocytes # (test code = Lymphocytes 2.5 1.0-5.5 #) [facility] CenterAewhteyDPLUXFVFPV8784-54-03 18:39:00 Test Item Value Reference Range Interpretation Comments Monocytes # (test code 0.6 See_Comment [Aut omated message] The = Monocytes #) system which generated this result tra nsmitted reference range : <=0.8. The reference r therese was not used to int erpret this result as normal/abnormal . [facility] CenterQbrkgfpMZZJUPKHCK8630-01-18 18:39:00 Test Item Value Reference Range Interpretation Comments Eosinophils # (test code 0.4 See_Comment [A utomated message] The = Eosinophils #) system whic h generated this result tra nsmitted reference range : <=0.5. The reference r therese was not used to int erpret this result as normal/abnormal . [facility] CenterTsydtgvXSNXOOMUIJ4362-60-36 18:39:00 Test Item Value Reference Range Interpretation Comments Basophils # (test code 0.1 See_Comment [Aut omated message] The = Basophils #) system which generated this result tra nsmitted reference range : <=0.2. The reference r therese was not used to int erpret this result as normal/abnormal . [facility] CenterNjpssqsHSOOCDBQDB1249-66-56 18:39:00 Test Item Value Reference Range Interpretation Comments WBC (test code = WBC) 7.3 3.7-10.4 [facility] CenterMuxyvxoTDVNVBXASZ0197-55-83 18:39:00 Test Item Value Reference Range Interpretation Comments RBC (test code = RBC) 4.01 4.20-5.40 [facility] CenterTidpsbcWMCPQANXGD6173-95-55 18:39:00 Test Item Value Reference Range Interpretation Comments Hgb (test code = Hgb) 11.8 12.0-16.0 [facility] CenterPyzuzglIMAMBCVPDY7854-77-89 18:39:00 Test Item Value Reference Range Interpretation Comments Hct (test code = Hct) 35.1 36.0-48.0 [facility] CenterHnauxipPYXHHEKZTG0618-58-59 18:39:00 Test Item Value Reference Range Interpretation Comments MCV (test code = MCV) 87.5 80.0-98.0 [facility] CenterKwslsalSLFUGAUYFE8712-44-05 18:39:00 Test Item Value Reference Range Interpretation Comments MCH (test code = MCH) 29.5 pg 27.0-31.0 [facility] CenterFsqxtnyKOUXDAXVGN0928-69-85 18:39:00 Test Item Value Reference Range Interpretation Comments MCHC (test code = MCHC) 33.7 32.0-36.0 [facility] CenterNkdgfupBYCESRAJSL1228-63-51 18:39:00 Test Item Value Reference Range Interpretation Comments RDW (test code = RDW) 13.6 11.5-14.5 [facility] CenterUcnjrzzSEVIHMKKMV9685-39-01 18:39:00 Test Item Value Reference Range Interpretation Comments Platelet (test code = Platelet) 401 133-450 [facility] CenterYokuzwaUIVTIEKJKM6808-41-12 18:39:00 Test Item Value Reference Range Interpretation Comments MPV (test code = MPV) 8.4 7.4-10.4 [facility] FWXHK9556-35-31 18:39:00 Test Item Value Reference Range Interpretation Comments Glucose Lvl (test code = Glucose Lvl) 82 70-99 [place] 630931-11-16 18:39:00 Test Item Value Reference Range Interpretation Comments BUN (test code = BUN) 15 7-22 [place] 630931-11-16 18:39:00 Test Item Value Reference Range Interpretation Comments Creatinine Lvl (test code = Creatinine 0.82 0.50-1.40 Lvl) [place] 630931-11-16 18:39:00 Test Item Value Reference Range Interpretation Comments Sodium Lvl (test code = Sodium Lvl) 141 135-145 [place] 630931-11-16 18:39:00 Test Item Value Reference Range Interpretation Comments Potassium Lvl (test code = Potassium 4.9 3.5-5.1 Lvl) [place] 630931-11-16 18:39:00 Test Item Value Reference Range Interpretation Comments Chloride Lvl (test code = Chloride Lvl) 109 95-109 [place] 630931-11-16 18:39:00 Test Item Value Reference Range Interpretation Comments CO2 (test code = CO2) 29 24-32 [place] 630931-11-16 18:39:00 Test Item Value Reference Range Interpretation Comments Calcium Lvl (test code = Calcium Lvl) 9.0 8.5-10.5 [place] 630931-11-16 18:39:00 Test Item Value Reference Range Interpretation Comments AGAP (test code = AGAP) 7.9 10.0-20.0 [place] 630931-11-16 18:39:00 Test Item Value Reference Range Interpretation Comments eGFR (test code = eGFR) 70 [place] 630931-11-16 18:39:00 Test Item Value Reference Range Interpretation Comments Albumin Lvl (test code = Albumin Lvl) 3.3 3.5-5.0 [place] 376921-11-16 18:39:00 Test Item Value Reference Range Interpretation Comments Segs (test code = Segs) 50.0 45.0-75.0 [place] 376921-11-16 18:39:00 Test Item Value Reference Range Interpretation Comments Lymphocytes (test code = Lymphocytes) 34.8 20.0-40.0 [place] 376921-11-16 18:39:00 Test Item Value Reference Range Interpretation Comments Monocytes (test code = Monocytes) 8.3 2.0-12.0 [place] [address]-11-16 18:39:00 Test Item Value Reference Range Interpretation Comments Eosinophils (test code = 5.9 See_Comment [A utomated message] The Eosinophils) system which ge nerated this result tra nsmitted reference range : <=4.0. The reference r therese was not used to int erpret this result as normal/abnormal . [place] [address]-11-16 18:39:00 Test Item Value Reference Range Interpretation Comments Basophils (test code = 1.0 See_Comment [Aut omated message] The Basophils) system which ge nerated this result tra nsmitted reference range : <=1.0. The reference r therese was not used to int erpret this result as normal/abnormal . [place] [address]-11-16 18:39:00 Test Item Value Reference Range Interpretation Comments Neutrophils # (test code = Neutrophils 3.6 1.5-8.1 #) [place] [address]-11-16 18:39:00 Test Item Value Reference Range Interpretation Comments Lymphocytes # (test code = Lymphocytes 2.5 1.0-5.5 #) [place] [address]-11-16 18:39:00 Test Item Value Reference Range Interpretation Comments Monocytes # (test code 0.6 See_Comment [Aut omated message] The = Monocytes #) system which generated this result tra nsmitted reference range : <=0.8. The reference r therese was not used to int erpret this result as normal/abnormal . [place] 376921-11-16 18:39:00 Test Item Value Reference Range Interpretation Comments Eosinophils # (test code 0.4 See_Comment [A utomated message] The = Eosinophils #) system whic h generated this result tra nsmitted reference range : <=0.5. The reference r therese was not used to int erpret this result as normal/abnormal . [place] [address]-11-16 18:39:00 Test Item Value Reference Range Interpretation Comments Basophils # (test code 0.1 See_Comment [Aut omated message] The = Basophils #) system which generated this result tra nsmitted reference range : <=0.2. The reference r therese was not used to int erpret this result as normal/abnormal . [facility] CenterKiuocnhAVXPJLPKLA2217-33-28 18:39:00 Test Item Value Reference Range Interpretation Comments WBC (test code = WBC) 7.3 3.7-10.4 [facility] CenterNlpdcbnNXATOQXCIN7670-09-41 18:39:00 Test Item Value Reference Range Interpretation Comments RBC (test code = RBC) 4.01 4.20-5.40 [facility] CenterXpjkmptJUJXGVNYDK9023-88-61 18:39:00 Test Item Value Reference Range Interpretation Comments Hgb (test code = Hgb) 11.8 12.0-16.0 [place] 376921-11-16 18:39:00 Test Item Value Reference Range Interpretation Comments Hct (test code = Hct) 35.1 36.0-48.0 [place] 376921-11-16 18:39:00 Test Item Value Reference Range Interpretation Comments MCV (test code = MCV) 87.5 80.0-98.0 [place] 376921-11-16 18:39:00 Test Item Value Reference Range Interpretation Comments MCH (test code = MCH) 29.5 pg 27.0-31.0 [facility] CenterJzkaumzYHYSCHRHMR2468-77-05 18:39:00 Test Item Value Reference Range Interpretation Comments MCHC (test code = MCHC) 33.7 32.0-36.0 [facility] CenterJpvposeLMPGBACUXW5338-01-92 18:39:00 Test Item Value Reference Range Interpretation Comments RDW (test code = RDW) 13.6 11.5-14.5 [place] 376921-11-16 18:39:00 Test Item Value Reference Range Interpretation Comments Platelet (test code = Platelet) 401 133-450 [facility] CenterWdokamtFXABFSRTMX7920-45-29 18:39:00 Test Item Value Reference Range Interpretation Comments MPV (test code = MPV) 8.4 7.4-10.4 [place] 793061-11-16 18:14:00 Test Item Value Reference Range Interpretation Comments Coronavirus (COVID-19) Not Detected BOBY (test code = *NA*(04/21/21 12:14 Coronavirus (COVID-19) PM) BOBY) [facility]139[facility] 18:14:00 Test Item Value Reference Range Interpretation Comments Coronavirus (COVID-19) Not Detected BOBY (test code = *NA*(04/21/21 12:14 Coronavirus (COVID-19) PM) [facility]OBY) [facility]5246[facility]28 18:14:00 Test Item Value Reference Range Interpretation Comments Coronavirus (COVID-19) Not Detected BOBY (test code = *NA*(04/21/21 12:14 Coronavirus (COVID-19) PM) BOBY) [facility]-CoV-2 (COVID-19) RNA [Presence] in Respiratory specimen by BOBY with probe [id number] 22:16:13 Test Item Value Reference Range Interpretation Comments SARS-CoV-2 (COVID-19) RNA Not detected Not-Detected [Presence] in Respiratory specimen by BOBY with probe detection (test code = 43577-7) MARCO ANTONIO [facility] SPECIALIST IN OR/30 MINUTE HRENSWXPEX2615-49-58 13:36:00 Reason for exam:->trigeminal neuralgiaFINAL REPORT Fluoroscopic [...] Mistry Verified Date/Time: 04/05/2017 13:36:56 Reading Location: [address] ConsultReading Room URINALYSIS W/ [id number] 15:26:00 Test Item Value Reference Range Interpretation [...] (test code = 2795) RAD, CHEST, 2 [id number] 15:00:00Reason for exam:->pre op testingFINAL REPORT PA and lateral chest: The cardiomediastinal silhouette and pulmonary vasculature are unremarkable. The lungs are clear. There is no radiographic evidence of active cardiopulmonary disease. Insofar as visualized, the regional skeleton appears intact. Signed: Cee Daniel Verified Date/Time: 04/04/2017 15:00:09 Reading Location: [address] Radiology Reading Room [employer] [id number] 14:57:00 Test Item Value Reference Range Interpretation [...] S NOT APPLICABLE FOR DIALYSIS PATIEN TS. [id number] 14:45:00 Test Item Value Reference Range Interpretation Comments PARTIAL THROMBOPLASTIN TIME 35.2 seconds 22.5-36.0 (BEAKER) (test code = 760) PROTHROMBIN TIME/[id number] 14:44:00 Test Item Value Reference Range Interpretation Comments PROTIME (BEAKER) (test code = 13.7 seconds 11.7-14.7 759) INR (BEAKER) (test code = 370) 1.1 <=5.9 RECOMMENDED COUMADIN/WARFARIN INR THERAPY RANGESSTANDARD DOSE: 2.0 - 3.0 Includes: PROPHYLAXIS for venous thrombosis, systemic embolization; TREATMENT for venous thrombosis and/or pulmonary embolus.HIGH RISK: Target INR is 2.5-3.5 for patients with mechanical heart valves.CBC W/PLT COUNT & AUTO [id number] 14:39:00 Test Item Value Reference Range Interpretation [...] PERCENT (BEAKER) (test code = 2801) BODY [id number] 21:47:00 Test Item Value Reference Range Interpretation Comments Crystal BF (test code Negative (01/05/17 4:47 = Crystal BF) PM) [facility] [id number] 21:47:00 Test Item Value Reference Range Interpretation Comments Crystal BF Type (test Synovial (01/05/17 4:47 code = Crystal BF PM) Type) [facility] [id number] 21:47:00 Test Item Value Reference Range Interpretation Comments Crystal BF (test code Negative (01/05/17 4:47 = Crystal BF) PM) [facility] [id number] 21:47:00 Test Item Value Reference Range Interpretation Comments Crystal BF Type (test Synovial (01/05/17 4:47 code = Crystal BF PM) Type) [facility] [id number] 21:47:00 Test Item Value Reference Range Interpretation Comments Crystal BF (test code Negative (01/05/17 4:47 = Crystal BF) PM) [facility] [id number] 21:47:00 Test Item Value Reference Range Interpretation Comments Crystal BF Type (test Synovial (01/05/17 4:47 code = Crystal BF PM) Type) [facility] Notes Date/Time Note Provider Source 2021-06-15 15:01:42-00:00 TESSY BERKOWITZ [facility] CONSULTATION ASHLIE HUERTAS FACILITY: [facility] Billing #: [id number] Room: [address] [place] [address] MR #: [id number] : 1945 DATE OF ADMISSION: 06/14/2021 DATE OF CONSULTATION: 06/15/2021 REQUESTING PHYSICIAN: Mayte Kumar MD NEUROLOGY SPECIALIST: Tessy Berkowitz MD ADDITIONAL REFERRING PHYSICIAN: Dr. Mateo Riley . REASON FOR REFERRAL: Pain management input and c ontribution. HISTORY OF PRESENT ILLNESS: The patient is a ple asant 75-year-old female with history of multiple scle rosis. Other comorbidities include, but not limited to, kidne y cancer. The patient is being followed by MD Stratton. The pa stephane stated that she is on subtherapeutic dose of baclofen. Also stated that she is used to taking tramadol much more to lerable than [place], would like to have tramadol. The patient [...] before admission. 7. Acetaminophen. 8. Effexor. 9. [place] 5/325 every 4 hours p.r.n. 10. Morphine [...] 110. ASSESSMENT: Ashlie Huertas is a 75-year-old f emale with history of right knee surgery, history [...] with the atten ding physician conservatively. OEO/MODL /[id number] 2021-06-14 20:57:44-00:00 [facility] CONSULTATION ASHLIE HUERTAS FACILITY: [facility] Billing #: [id number] Room: [facility] A502 MR #: [id number] : 1945 DATE OF ADMISSION: 06/14/2021 DATE OF CONSULTATION: 06/14/2021 REQUESTING PHYSICIAN: Mateo Riley MD NEUROLOGY SPECIALIST: Tracey Moffett MD REASON FOR CONSULTATION: Back [...] on and management of this patient. BRANDY/GABRIELLA /[id number] Dictated By: Maxwell Welch PA-C
[2023-02-15] MEDS ORDERED: NA CHLORIDE 0.9% 1,000 ML ONE (20:30)
--- NOTE | 2023-02-15 21:00 | ER ---
Nurse's Notes [facility] Name: Anel Aguirre Age: 77 yrs Sex: Female : 1945 Arrival Date: 02/15/2023 Time: 19:13 Bed 5 Private MD: Diagnosis: Combined systolic (congestive) and diastolic (congestive) heart failure;Pleural effusion, not elsewhere classified;Dyspnea;Unspecified kidney failure Presentation: 02/15 19:41 Chief complaint: Patient states: I have been feeling shortness of breath for the past ha1 three day and today it has got worse . Coronavirus screen: Vaccine status: Patient reports being unvaccinated. Ebola Screen: No symptoms or risks identified at this time. Initial Sepsis Screen: Does the patient meet any 2 criteria? No. Patient's initial sepsis screen is negative. Does the patient have a suspected source of infection? No. Patient's initial sepsis screen is negative. Risk Assessment: Do you want to hurt yourself or someone else? Patient reports no desire to harm self or others. Onset of symptoms was February 12, 2023. 19:41 Method Of Arrival: Wheelchair ha1 19:41 Acuity: WILLIAM 3 ha1 Triage Assessment: 19:45 General: Appears uncomfortable, Behavior is calm, cooperative. Pain: Denies pain. ha1 Neuro: Level of Consciousness is awake, alert, obeys commands, Oriented to person, place, time, situation. Respiratory: Reports shortness of breath Airway is patent Respiratory effort is even, unlabored, Respiratory pattern is regular, symmetrical. Historical: - Allergies: 19:45 No Known Allergies; ha1 - PMHx: 19:45 breast cancer; CKD; HEART FAILURE; Hypercholesterolemia; Hypertensive disorder; ha1 Multiple Sclerosis; ovarian cancer; Pulmonary Embolism; Renal Mass; trigeminal neuralgia; - PSHx: 19:45 Appendectomy; breast; hysterectomy; ovarian; Right knee replacement; ha1 - Immunization history:: Adult Immunizations up to date. - Social history:: Smoking status: Patient/guardian denies using tobacco, the patient reports quitting approximately 15 years ago. - Family history:: not pertinent. Screenin:55 Abuse screen: Denies threats or abuse. Denies injuries from another. Nutritional ha1 screening: No deficits noted. Tuberculosis screening: No symptoms or risk factors identified. Assessment: 20:00 General: Appears in no apparent distress. uncomfortable, Behavior is calm, cooperative. nj1 Pain: Complains of pain in Generalized. Neuro: Level of Consciousness is awake, alert, Oriented to person. Cardiovascular: Patient's skin is warm and dry. Respiratory: Airway is patent Respiratory effort is even, unlabored, Breath sounds are clear in left upper lobe and left lower lobe Breath sounds are diminished in right upper lobe, right middle lobe and right lower lobe. 21:00 Reassessment: Patient and/or family updated on plan of care and expected duration. Pain ha1 level reassessed. Patient is alert, oriented x 3, equal unlabored respirations, skin warm/dry/pink. General:. 22:00 Reassessment: Patient and/or family updated on plan of care and expected duration. Pain ha1 level reassessed. Patient is alert, oriented x 3, equal unlabored respirations, skin warm/dry/pink. 23:00 Reassessment: Patient and/or family updated on plan of care and expected duration. Pain ha1 level reassessed. Patient is alert, oriented x 3, equal unlabored respirations, skin warm/dry/pink. 23:40 Reassessment: attempted to give report. ha1 23:57 Reassessment: report given to ALYSHA Cai. ha1 Vital Signs: 19:41 BP 109 / 82; Pulse 80; Resp 20; Temp 97.9; Pulse Ox 95% on 2 lpm NC; Weight 58.97 kg; ha1 Height 5 ft. 9 in. ; 21:00 BP 109 / 73; Pulse 77; Resp 20 S; Pulse Ox 100% on 2 lpm NC; ha1 22:00 BP 110 / 75; Pulse 79; Resp 18 S; Pulse Ox 99% on 2 lpm NC; ha1 22:50 BP 112 / 80; Pulse 79; Resp 18 S; Pulse Ox 99% on 2 lpm NC; ha1 23:42 BP 114 / 71; Pulse 79; Resp 20 S; Pulse Ox 98% on 2 lpm NC; ha1 19:41 Body Mass Index 19.20 (58.97 kg, 175.26 cm) ha1 ED Course: 19:15 Patient arrived in ED. rv1 19:39 Arm band placed on right wrist. ha1 19:39 Patient has correct armband on for positive identification. Placed in gown. Bed in low ha1 position. Call light in reach. Side rails up X 1. 19:45 Triage completed. ha1 19:50 Elina Gonzalez, ALYSHA is Primary Nurse. nj1 19:53 Raoul Stratton MD is Attending Physician. [facility] 20:00 Inserted saline lock: 22 gauge in right forearm, using aseptic technique. nj1 20:29 XRAY Chest (1 view) In Process Unspecified. EDMS 20:58 Johann Romo MD is Hospitalizing Provider. [facility] 21:00 Report given to Arabella ENCARNACION. nj1 22:15 Dallas Riley MD is Hospitalizing Provider. la1 23:00 Cantrell cath inserted, using sterile technique, 16 Fr., by ri, balloon inflated, to ha1 gravity drainage, urine specimen collected. 23:55 No provider procedures requiring assistance completed. Patient admitted, IV remains in ha1 place. 23:56 Provided Education on: need admit. ha1 Administered Medications: 20:10 Drug: NS 0.9% IV 1000 ml Route: IV; Rate: 75 ml/hr; Site: right forearm; nj1 22:55 Drug: Furosemide IVP 40 mg Route: IVP; Site: right forearm; ha1 23:00 Drug: Meropenem IV 1 grams Route: IV; Rate: per protocol; Site: right forearm; 1 Medication: 23:56 VIS not applicable for this client. ha1 Outcome: 21:00 Decision to Hospitalize by Provider. [facility] 23:55 Admitted to Med/surg accompanied by tech, room 218. ha1 23:55 Condition: stable 23:55 Discharge instructions given to patient, family, Instructed on the need for admit, Demonstrated understanding of instructions. 02/16 00:05 Patient left the ED. ha1 Signatures: Dispatcher [employer] EDMS Raoul Stratton MD MD cha Attema, Lee, NATIONAL SALES MANAGER-C NATIONAL SALES MANAGER-Cla1 Arabella Vicente RN RN [facility] Ally Nes[facility] Elina Gonzalez, ALYSHA RN nj1 Corrections: (The following items were deleted from the chart) 02/15 23:45 23:42 BP 114 / 71; Pulse 79bpm; Resp 20bpm; Spontaneous; Pulse Ox 100% RA; 1 ha1 02/16 00:38 00:37 Patient left the ED. ha1 ha1
--- NOTE | 2023-02-15 21:00 | EDPHYS ---
Physician Documentation [facility] Name: Anel Aguirre Age: 77 yrs Sex: Female : 1945 Arrival Date: 02/15/2023 Time: 19:13 Bed 5 Private MD: ED Physician Raoul Stratton HPI: 02/15 20:02 This 77 yrs old Black Female presents to ER via Wheelchair with complaints of SOB, HX amelia CHF. 20:02 The patient has shortness of breath at rest, with light activity. Onset: The amelia symptoms/episode began/occurred 3 day(s) ago. Duration: The symptoms are continuous, and are steadily getting worse. The patient's shortness of breath is aggravated by light activity, supine position, talking, is alleviated by pursed lip breathing, rest, sitting up, application of supplemental oxygen. Associated signs and symptoms: Pertinent positives: non-productive cough. Severity of symptoms: At their worst the symptoms were moderate in the emergency department the symptoms are unchanged. The patient has experienced similar episodes in the past, multiple times. Historical: - Allergies: 19:45 No Known Allergies; ha1 - PMHx: 19:45 breast cancer; CKD; HEART FAILURE; Hypercholesterolemia; Hypertensive disorder; ha1 Multiple Sclerosis; ovarian cancer; Pulmonary Embolism; Renal Mass; trigeminal neuralgia; - PSHx: 19:45 Appendectomy; breast; hysterectomy; ovarian; Right knee replacement; ha1 - Immunization history:: Adult Immunizations up to date. - Social history:: Smoking status: Patient/guardian denies using tobacco, the patient reports quitting approximately 15 years ago. - Family history:: not pertinent. ROS: 20:02 Constitutional: Negative for fever, chills, and weight loss, Eyes: Negative for injury, amelia pain, redness, and discharge, ENT: Negative for injury, pain, and discharge, Neck: Negative for injury, pain, and swelling, Cardiovascular: Negative for chest pain, palpitations, and edema, Abdomen/GI: Negative for abdominal pain, nausea, vomiting, diarrhea, and constipation, Back: Negative for injury and pain, : Negative for injury, bleeding, discharge, and swelling, MS/Extremity: Negative for injury and deformity, Skin: Negative for injury, rash, and discoloration, Neuro: Negative for headache, weakness, numbness, tingling, and seizure, Psych: Negative for depression, anxiety, suicide ideation, homicidal ideation, and hallucinations, Allergy/Immunology: Negative for hives, rash, and allergies, Endocrine: Negative for neck swelling, polydipsia, polyuria, polyphagia, and marked weight changes. 20:02 Respiratory: Positive for cough, shortness of breath, at rest. Exam: 20:02 Constitutional: This is a well developed, well nourished patient who is awake, alert, amelia and in no acute distress. Head/Face: Normocephalic, atraumatic. Eyes: Pupils equal round and reactive to light, extra-ocular motions intact. Lids and lashes normal. Conjunctiva and sclera are non-icteric and not injected. Cornea within normal limits. Periorbital areas with no swelling, redness, or edema. ENT: Nares patent. No nasal discharge, no septal abnormalities noted. Tympanic membranes are normal and external auditory canals are clear. Oropharynx with no redness, swelling, or masses, exudates, or evidence of obstruction, uvula midline. Mucous membranes moist. Neck: Trachea midline, no thyromegaly or masses palpated, and no cervical lymphadenopathy. Supple, full range of motion without nuchal rigidity, or vertebral point tenderness. No Meningismus. Chest/axilla: Normal chest wall appearance and motion. Nontender with no deformity. No lesions are appreciated. Cardiovascular: Regular rate and rhythm with a normal S1 and S2. No gallops, murmurs, or rubs. Normal PMI, no JVD. No pulse deficits. Abdomen/GI: Soft, non-tender, with normal bowel sounds. No distension or tympany. No guarding or rebound. No evidence of tenderness throughout. Back: No spinal tenderness. No costovertebral tenderness. Full range of motion. Female : Normal external genitalia. Skin: Warm, dry with normal turgor. Normal color with no rashes, no lesions, and no evidence of cellulitis. MS/ Extremity: Pulses equal, no cyanosis. Neurovascular intact. Full, normal range of motion. Neuro: Awake and alert, GCS 15, oriented to person, place, time, and situation. Cranial nerves II-XII grossly intact. Motor strength 5/5 in all extremities. Sensory grossly intact. Cerebellar exam normal. Normal gait. Psych: Awake, alert, with orientation to person, place and time. Behavior, mood, and affect are within normal limits. 20:02 Respiratory: the patient does not display signs of respiratory distress, Respirations: labored breathing, that is mild, Breath sounds: decreased breath sounds, that are mild, are scattered, are located in both bases, rhonchi, that are mild, are scattered, stridor, is not appreciated, Respiratory rate: 20 20:24 ECG was reviewed by the Attending Physician. [facility] Vital Signs: 19:41 BP 109 / 82; Pulse 80; Resp 20; Temp 97.9; Pulse Ox 95% on 2 lpm NC; Weight 58.97 kg; ha1 Height 5 ft. 9 in. ; 21:00 BP 109 / 73; Pulse 77; Resp 20 S; Pulse Ox 100% on 2 lpm NC; ha1 22:00 BP 110 / 75; Pulse 79; Resp 18 S; Pulse Ox 99% on 2 lpm NC; ha1 22:50 BP 112 / 80; Pulse 79; Resp 18 S; Pulse Ox 99% on 2 lpm NC; ha1 23:42 BP 114 / 71; Pulse 79; Resp 20 S; Pulse Ox 98% on 2 lpm NC; ha1 19:41 Body Mass Index 19.20 (58.97 kg, 175.26 cm) ha1 MDM: 19:53 Patient medically screened. amelia 20:05 Differential diagnosis: Anemia Anxiety Reaction asthma, Bronchitis CHF exacerbation, amelia Chronic Obstructive Pulmonary Disease Myocardial Infarction pneumonia, Pneumothorax pulmonary edema, Pulmonary Embolism reactive airway disease, Sepsis Unstable Angina. Antibiotic administration: Not indicated. Immunization status: Pneumococcal vaccine: Influenza vaccine: Data reviewed: vital signs, nurses notes, lab test result(s), CBC, electrolytes, hepatic panel, EKG, radiologic studies, plain films. Consideration of Admission/Observation Escalation of care including admission/observation considered. I considered the following discharge prescriptions or medication management in the emergency department Medications were administered in the Emergency Department. See MAR. Independent interpretation of the following test(s) in the Emergency Department EKG: See my EKG interpretation above. Test considered but Not performed: CT: NO CT CHEST. Historians other than the Patient: Spouse/Significant Other: WELL INFORMED. Care significantly affected by the following chronic conditions: Hypertension, Congestive Heart Failure, Cancer, Chronic Kidney Disease. Counseling: I had a detailed discussion with the patient and/or guardian regarding the historical points, exam findings, and any diagnostic results supporting the discharge/admit diagnosis, the presence of at least one elevated blood pressure reading (>120/80) during this emergency department visit, lab results, radiology results, the need for further work-up and treatment in the hospital. 02/15 19:55 Order name: Basic Metabolic Panel; Complete Time: 21:45 [facility] 02/15 19:55 Order name: CBC with Diff; Complete Time: 21:26 [facility] 02/15 19:55 Order name: LFT's; Complete Time: 21:45 [facility] 02/15 19:55 Order name: Magnesium; Complete Time: 21:45 [facility] 02/15 19:55 Order name: NT PRO-BNP; Complete Time: 21:45 [facility] 02/15 19:55 Order name: PT-INR; Complete Time: 21:26 [facility] 02/15 19:55 Order name: Troponin HS; Complete Time: 21:45 [facility] 02/15 19:55 Order name: Lipase; Complete Time: 21:45 [facility] 02/15 19:55 Order name: Blood Culture Adult (2) 02/15 19:55 Order name: SARS RAPID [facility] 02/15 19:55 Order name: Flu [facility] 02/15 19:55 Order name: Urinalysis w/ reflexes; Complete Time: 00:21 [facility] 02/15 20:27 Order name: Lactate w/ 2H reflex if indic.; Complete Time: 21:26 [facility] 02/15 22:16 Order name: Procalcitonin [facility] 02/15 19:55 Order name: XRAY Chest (1 view); Complete Time: 21:45 [facility] 02/15 22:16 Order name: Chest Abdomen Pelvis Wo Con CT [facility] 02/15 22:20 Order name: Head Brain Wo Cont CT 02/15 19:55 Order name: EKG; Complete Time: 19:56 [facility] 02/15 19:55 Order name: Cardiac monitoring; Complete Time: 20:47 [facility] 02/15 19:55 Order name: EKG - Nurse/Tech; Complete Time: 20:48 [facility] 02/15 19:55 Order name: IV Saline Lock; Complete Time: 20:12 [facility] 02/15 19:55 Order name: Labs collected and sent; Complete Time: 20:48 [facility] 02/15 19:55 Order name: O2 Per Protocol; Complete Time: 19:58 [facility] 02/15 19:55 Order name: O2 Sat Monitoring; Complete Time: 19:58 amelia 02/15 20:26 Order name: Cantrell; Complete Time: 23:24 amelia EC:24 Rate is 77 beats/min. QRS [place] is Normal. [place] interval is normal. QRS interval is amelia normal. QT interval is normal. No Q waves. T waves are Inverted in leads II, III, aVF, V4, V5, V6. ST Segment is depressed in leads II, III, aVF. Clinical impression: NSR w/ Non-specific ST/T Changes. Interpreted by me. Reviewed by me. Administered Medications: 20:10 Drug: NS 0.9% IV 1000 ml Route: IV; Rate: 75 ml/hr; Site: right forearm; nj1 22:55 Drug: Furosemide IVP 40 mg Route: IVP; Site: right forearm; ha1 23:00 Drug: Meropenem IV 1 grams Route: IV; Rate: per protocol; Site: right forearm; [facility] Disposition Summary: 02/15/23 21:00 Hospitalization Ordered Hospitalization Status: Inpatient Admission amelia [facility] amelia Condition: Fair amelia Problem: an ongoing problem amelia Symptoms: have worsened amelia Bed/Room Type: Standard amelia Provider: Dallas Riley(02/15/23 22:15) og1 Room Assignment: [facility](02/15/23 22:35) Diagnosis - Combined systolic (congestive) and diastolic (congestive) heart failure amelia - Pleural effusion, not elsewhere classified amelia - Dyspnea amelia - Unspecified kidney failure amelia Forms: - Medication Reconciliation Form amelia - SBAR form amelia - Leadership Thank You Letter amelia Signatures: Dispatcher [employer] EDID Ruthy Gutierrez RN RN mw Anderson, Corey, MD MD cha Attema, Lee, POLICY WRITER-C POLICY WRITER-Cla1 Arabella Vicente RN RN [facility] Elina Gonzalez RN RN nj1 Corrections: (The following items were deleted from the chart) 22:15 21:00 Johann Romo cha la1 22:35 21:00 amelia samuel
[2023-02-15 21:11] LABS: Absolute Lymphocytes (CBC) 1.6 K/uL (0.7-4.9); Hematocrit 33.5 % (36.0-45.0); Lymphocytes % 23.6 % (15.3-44.8); MCV 81.7 fL (80-100); MPV 8.9 fL (7.6-11.3); Platelets 332 thou/uL (152-406)
[2023-02-15 21:21] LABS: Protime INR 1.14
[2023-02-15 21:27] LABS: Albumin 3.3 g/dL (3.4-5.0); Bilirubin Direct 0.1 mg/dL (0-0.2); Bilirubin Indirect, Calculated 0.3 mg/dL (0.2-0.8); Bilirubin Total 0.4 mg/dL (0.2-1.0); Magnesium 2.3 mg/dL (1.6-2.4); Potassium 4.3 mEq/L (3.5-5.1); Protein, Total 8.1 g/dL (6.4-8.2); Troponin High Sensitivity 14.6 pg/mL (<58.9)
--- NOTE | 2023-02-15 21:38 | RAD REPORT ---
[facility]28 [facility] CLINICAL HISTORY: Cough;Dyspnea COMPARISON: Chest Single View dated 02/15/2023; Chest Single View dated 01/17/2023; Chest Abd Pelvis W o Con dated 01/17/2023 TECHNIQUE: Portable AP view of the chest. FINDINGS: Progressive patchy opacification in the right mid to lower lung. Right layering moderate e ffusion probably stable. Central interstitial prominence, stable. No pneumothorax. Stable mild cardi omegaly. Mediastinal contours are unremarkable. IMPRESSION: Progressive patchy opacification in the right mid to lower lung. Other stable findings a s above. Findings may relate to worsening pneumonia or pulmonary edema.
--- NOTE | 2023-02-15 22:47 | P.HP ---
Certification for Inpatient Patient admitted to: Inpatient With expected LOS: >2 Midnights Patient will require the following post-hospital care: None Practitioner: I am a practitioner with admitting privileges, knowledge of patient current condition, hospital course, and medical plan of care. Services: Services provided to patient in accordance with Admission requirements found in Title 42 Section 412.3 of the Code of Federal Regulations Patient History Date of Service: 02/15/23 Reason for admission: Dyspnea, CHF exacerbation History of Present Illness: 77-year-old female with history of chronic systolic congestive heart failure, stage III lung cancer status post chemoradiation, CVA, chronic atrial fibrillation, hypertension, hyperlipidemia, PE, pulmonary hypertension, MS, presents emergency department for progressive dyspnea, AMS. She was recently admitted our facility on 01/17/2023 and subsequently discharged on 01/26/2023 to [facility] where she stayed for approximately 2 weeks. She was discharged home on 02/12/2023 and her brother who has been caring for her at home reports that her breathing has been getting worse over the course of the last 3 days as well as developing similar confusion when she was previously admitted with pneumonia. She was evaluated in the emergency department her labs today are significant for elevated BNP 21,951 AST 99 ALT 108 alk phos 203 creatinine 1.25 GFR 44 lactic acid 1.6 white blood cell count 6.8 hemoglobin 10.7 macro 33.5 chest x-ray was performed which revealed progressive patchy opacification in the right mid to lower lung. Other stable findings as above. Findings may relate to worsening pneumonia or pulmonary edema. Given markedly elevated BNP, progressive dyspnea on exertion lack of blood blood cell count or fever this is most likely related to CHF exacerbation, further diagnostics ordered including CT of the head, chest abdomen pelviswas also experiencing abdominal pain with mild LFT elevations. She will be admitted for further management. Allergies [place] And Derivatives Allergy (Verified 01/25/23 22:47) Itching Home Medications: Amiodarone HCl [Cordarone*] 200 mg PO DAILY 01/18/23 Apixaban [Eliquis] 5 mg PO BID 01/18/23 Atorvastatin Calcium [Lipitor*] 20 mg PO BEDTIME 01/18/23 Baclofen 10 mg PO TID 01/18/23 Duloxetine HCl 30 mg PO BID 01/18/23 Metoprolol Succinate 12.5 mg PO BID 01/18/23 Pregabalin 50 mg PO TID 01/18/23 Sacubitril/Valsartan [Entresto 24 mg-26 mg Tablet] 1 tab PO BID 01/18/23 Venlafaxine HCl [Effexor XR] 37.5 mg PO BEDTIME 01/18/23 Baclofen 30 mg PO TID 01/20/23 Hydrocodone Bit/Acetaminophen [[place] 10-325 Tablet] 1 tab PO Q6H PRN 01/20/23 Tramadol HCl 100 mg PO Q8H 01/20/23 Amox/Clavulanate [Augmentin 875-125 Tab*] 875 mg PO BID #10 tab 01/26/23 Ensure Enlive 237 ml PO BID #0 can 01/26/23 - Past Medical/Surgical History Diabetic: No -: Lung cancer -: PE -: MS -: Hypertension -: Hyperlipidemia -: Chronic systolic congestive heart failure -: A-fib -: Unknown Psychosocial/ Personal History: Patient currently lives at home with a family member, recently discharged from [facility]. - Social History Smoking Status: Never smoker Alcohol use: No CD- Drugs: No Caffeine use: No Place of Residence: Home Review of Systems 10-point ROS is otherwise unremarkable Respiratory: Shortness of Breath, SOB with Excertion Physical Examination - Physical Exam General: Alert, In no apparent distress, Oriented x2 HEENT: Atraumatic, PERRLA, Mucous membr. moist/pink, EOMI, Sclerae nonicteric Neck: Supple, 2+ carotid pulse no bruit, No LAD, Without JVD or thyroid abnormality Respiratory: Diminished, Crackles/rales Cardiovascular: Normal S1 S2, Edema, Irregular heart rate/rhythm Gastrointestinal: Normal bowel sounds, No tenderness Musculoskeletal: No clubbing, No tenderness Integumentary: No rashes Neurological: Normal speech, Normal strength at 5/5 x4 extr, Normal tone, Normal affect - Studies Laboratory Data (last 24 hrs) 02/15/23 02/15/23 02/15/23 20:30 20:30 20:30 WBC 6.80 Hgb 10.7 L Hct 33.5 L Plt Count 332 PT 12.5 INR 1.14 Sodium 137 Potassium 4.3 BUN 26 H Creatinine 1.25 H Glucose 98 Magnesium 2.3 Total Bilirubin 0.4 AST 99 H ALT 108 H Alkaline Phosphatase 203 H Lipase 21 Assessment and Plan - Plan Assessment: Acute on chronic systolic congestive heart failure Suspected metabolic encephalopathy Mild abdominal tenderness/mildly elevated aminotransferase levels History of atrial fibrillation on chronic anticoagulation History of pulmonary embolism History of stage III lung cancer status post chemoradiation History of CVA Hypertension hyperlipidemia Multiple sclerosis Plan: Acute on chronic systolic congestive heart failure Patient/family poor historian, unclear if on diuretics at home. Possibly on Lasix previously. BNP markedly elevated chest x-ray suggestive of pulmonary edema versus pneumonia although patient is afebrile, normal white blood cell count. Suspect this is related to pulmonary edema, continue diuresis, Entresto. Cardiology consult ordered. Had echocardiogram during previous admission with severely depressed LVEF of 10 to 15%. Apparently had ischemic work-up at [facility] previously. Suspected metabolic encephalopathy Continue ruling out infectious process, possibly related to decompensated CHF. Mild abdominal tenderness/mildly elevated aminotransferase levels CT abdomen pelvis ordered for further evaluation. Daily CMP. History of atrial fibrillation on chronic anticoagulation Continue amiodarone, Eliquis. Rate controlled. History of pulmonary embolism Eliquis continued. History of stage III lung cancer status post chemoradiation History of CVA Hypertension hyperlipidemia Multiple sclerosis Continue home medication/supportive care. DVT PPX: Eliquis continued Code status: Full code Discharge Plan: Home Plan to discharge in: Greater than 2 days - Advance Directives Does patient have a Living Will: No Does patient have a Durable POA for Healthcare: No - Code Status/Comfort Care Code Status Assessed: Yes (Full code) Critical Care: No Time Spent Managing Pts Care (In Minutes): 55
[2023-02-15] MEDS ORDERED: FUROSEMIDE 20 MG/ 2ML VIAL ONE (22:54)
[2023-02-15] MEDS ORDERED: Meropenem 1000 MG/VIAL IV ONE (22:54)
[2023-02-15] MEDS ORDERED: NA CHLORIDE 0.9% 100 ML ONE (22:54)
[2023-02-15 23:47] LABS: Specific Gravity 1.023 (1.005-1.030); Urine Bacteria None Seen /HPF (<20); Urine Bilirubin NEGATIVE (Negative); Urine Blood Negative (Negative); Urine Clarity Clear (Clear); Urine Color Yellow (Yellow); Urine Glucose NEGATIVE (Negative); Urine Mucus Slight /HPF (None Seen); Urine Protein 1+ (Negative); Urine RBC <5 /HPF (None Seen); Urine Urobilinogen Normal (Normal); Urine pH 5.5 (5.0-7.0)
[2023-02-15] MEDS ORDERED: ONDANSETRON 4 MG/2 ML VIAL IV PRN (23:51)
[2023-02-15] MEDS ORDERED: ALBUTEROL 2.5 MG/3 ML NEB SOL NEB PRN (23:51)
[2023-02-16 03:29] LABS: Absolute Lymphocytes (CBC) 1.4 K/uL (0.7-4.9); Hematocrit 30.9 % (36.0-45.0); Lymphocytes % 23.8 % (15.3-44.8); MCV 81.5 fL (80-100); MPV 9.4 fL (7.6-11.3); Platelets 287 thou/uL (152-406); RBC Red Blood Cell Count 3.79 M/uL (3.86-4.86)
[2023-02-16 03:53] LABS: Albumin 2.9 g/dL (3.4-5.0); Bilirubin Total 0.3 mg/dL (0.2-1.0); Potassium 4.5 mEq/L (3.5-5.1); Protein, Total 6.9 g/dL (6.4-8.2); Thyroid Stimulating Hormone 1.36 uIU/mL (0.358-3.740); Troponin High Sensitivity 9.7 pg/mL (<58.9)
[2023-02-16] MEDS: APIXABAN 5 MG TABLET PO SCH ×2 (09:03→20:07)
[2023-02-16] MEDS: AMIODARONE HCL 200 MG TAB PO SCH (09:03)
[2023-02-16] MEDS: SACUBITRIL/VALSARTAN 24/26 MG TAB PO SCH ×2 (09:03→20:07)
--- NOTE | 2023-02-16 10:47 | RAD REPORT ---
EXAM DESCRIPTION: CT - Head Brain Wo Cont - 02/16/2023 6:54 am CLINICAL HISTORY: Confusion, new onset AMS. TECHNIQUE: Noncontrast CT through the head was performed. Axial, coronal, and sagittal reconstructio ns were created and sent to PACS. This exam was performed according to our departmental dose-optimiza tion program which includes use of Automated Exposure Control, adjustment of the mA and/or kV accordi ng to patient size and/or use of iterative reconstruction technique. COMPARISON: CT head from January 17, 2023. MRI brain from January 18, 2023. FINDINGS: There is diffuse atrophy throughout the brain parenchyma. Mild periventricular white matte r changes. Mild ex vacuo dilatation of the ventricular system. There is no intra-axial or extra-axial bleed. There is no mass or mass effect. The visualized paranasal sinuses and mastoid air cells are patent. No acute fracture is identified. IMPRESSION: No acute intracranial abnormality identified. Electronically signed by: Salina Eller MD 02/15/2023 11:23 PM CDT Due to temporary technical issues with the PACS/Fluency reporting system, reports are being signed by the in house radiologist without review as a courtesy to ensure prompt reporting. The interpreting r adiologist is fully responsible for the content of the report.
--- NOTE | 2023-02-16 11:03 | RAD REPORT ---
EXAM DESCRIPTION: CT - Chest Abd Pelvis Wo Con - 02/16/2023 6:54 am CLINICAL HISTORY: Dyspnea, chf, hx pneumonia, lunc CA, abd pain,mild LFT Elev. TECHNIQUE: Axial images obtained of the chest, abdomen and pelvis without intravenous contrast. Nonc ontrast imaging limited for the evaluation of neoplastic, infectious and/or vascular pathology. Sagit bryan and coronal reformatted images reviewed. Total DLP 741.8. CTDI: 10.5. This exam was performed according to the departmental dose-optimization program which includes automated exposure control, a djustment of the mA and/or kV according to patient size and/or use of iterative reconstruction techni que. COMPARISON: Chest x-ray February 15, 2023. FINDINGS: CHEST: LOWER NECK: No pathologic process in imaged portion of lower neck. PULMONARY PARENCHYMA, PLEURAL SPACES AND AIRWAYS: Large right pleural effusion Near complete atelectasis right lower lobe Masslike appearance to the right hilum. Area measuring 5.7 x 2.6 cm. Limited evaluation without contr ast. Air bronchograms noted to this area. Finding likely represents a combination of atelectasis and mass. Probable posttreatment changes. Lungs demonstrate mild changes of centrilobular emphysema Focal left upper lobe airspace disease compatible with pneumonia or edema Small left effusion. Minimal left base atelectasis No pneumothorax MEDIASTINUM AND OUMAR: No pneumomediastinum. No adenopathy identified HEART AND PERICARDIUM: Cardiomegaly with left ventricular enlargement. Cardiac blood pool hypodense to the myocardium compat ible with anemia. No pericardial effusion THORACIC VESSELS: Atherosclerotic calcification aorta. No aneurysmal dilatation CHEST WALL AND AXILLA: No axillary adenopathy. Mild subcutaneous edema MUSCULOSKELETAL: Bony thorax demonstrates no acute abnormality ADDITIONAL FINDINGS: None. ABDOMEN AND PELVIS: LIVER: Normal size and attenuation GALLBLADDER: No radiopaque calculus BILE DUCTS: No biliary dilatation PANCREAS: No acute abnormality SPLEEN: Normal size and attenuation ADRENALS: No pathologic process. KIDNEYS AND URETERS: No pathologic process. URINARY BLADDER: No pathologic process. GASTROINTESTINAL TRACT: Large amount of colonic stool compatible with constipation No bowel obstruction No significant diverticulosis. No evidence of diverticulitis APPENDIX: No inflammatory changes in region of appendix. The appendix is not identified LYMPH NODES: No lymphadenopathy. PERITONEUM/MESENTERY: Low volume free fluid pelvis No free fluid upper abdomen No free air VESSELS: Atherosclerotic calcification aorta. No aneurysm ADDITIONAL RETROPERITONEAL FINDINGS: None. REPRODUCTIVE ORGANS: o pathologic process. ABDOMINAL AND PELVIC QUINONEZ: Subcutaneous edema. Small amount of subcutaneous gas anterior abdominal wall. Probable injection site MUSCULOSKELETAL: Severe multilevel lumbar degenerative disc disease ADDITIONAL FINDINGS: None. IMPRESSION: Chest: Large right pleural effusion. Near complete atelectasis right lower lobe Masslike appearance to the right hilum. Limited evaluation without contrast. Probable chronic atelect asis and consolidation posterior PE. Mass not excluded Small left effusion and left base airspace disease compatible with atelectasis Focal left upper lobe airspace disease with differential of pneumonia or edema Changes of centrilobular emphysema Cardiomegaly Abdomen and pelvis: Subcutaneous edema. Correlate for congestive failure or fluid overload Large volume colonic stool compatible with constipation. No bowel obstruction No acute inflammatory change No free air Low volume nonspecific free fluid cul-de-sac No hydronephrosis THANK YOU FOR YOUR REFERRAL Electronically signed by: Pascual Kamara MD 02/15/2023 11:29 PM CDT Due to temporary technical issues with the PACS/Fluency reporting system, reports are being signed by the in house radiologist without review as a courtesy to ensure prompt reporting. The interpreting r adiologist is fully responsible for the content of the report.
[2023-02-16] MEDS: TRAMADOL HCL 50 MG TAB PO PRN ×2 (11:13→22:40)
--- NOTE | 2023-02-16 14:55 | EKG ---
Test Date: 2023-02-15 Test Time: 20:11:27 Veterinary Microbiologist: MAGGIE MEASUREMENT RESULTS: Intervals: Rate: 77 WI: 172 QRSD: 98 QT: 426 QTc: 482 Gratz: P: 59 WI: 172 QRS: 79 T: 267 INTERPRETIVE STATEMENTS: Normal sinus rhythm Possible Left atrial enlargement Left ventricular hypertrophy ST & T wave abnormality, consider inferolateral ischemia Abnormal ECG Compared to ECG 02/15/2023 01:00:31 Left ventricular hypertrophy now present Incomplete right bundle-branch block no longer present Prolonged QT interval no longer present ST (T wave) deviation still present Possible ischemia still present Electronically Signed On 02-16-23 14:53:[address] Del Angel
[2023-02-16] MEDS ORDERED: ALBUTEROL 2.5 MG/3 ML NEB SOL NEB PRN (15:00)
--- NOTE | 2023-02-16 19:41 | CON ---
Date of Consultation: 02/16/2023 Reason For Consultation: CHF exacerbation. History Of Present Illness: 77-year-old female, history of systolic heart failure, severe stage III lung cancer, status post radiation, chemotherapy, AFib, hypertension, dyslipidemia, pulmonary embolis m, hypertension, presented with progressive shortness of breath, lower extremity edema and orthopnea. No chest pain. No nausea, vomiting, or diarrhea. Past Medical History: As outlined above in the HPI. Medications: Refer to reconciliation sheet for detailed list. Allergies: NO KNOWN DRUG ALLERGIES. Family History: No premature coronary artery disease or cancer. Social History: Does not smoke or drink. Does not use any drugs. Review of Systems: All systems were reviewed. They were negative except what was mentioned in the HPI. Physical Examination: Vital Signs: Reviewed. Head and Neck: Pupils are equal, reactive to light. Intact eye movements. No cervical lymphadenopa thy. Mild JVD elevation. Lungs: Decreased breathing sounds bilaterally. No accessory muscle use or muscle retraction. Heart: Irregular. No extra sounds. Abdomen: Soft, nontender. Bowel sounds positive. No organomegaly. No masses or hernia. No rigidi ty or rebound. Extremities: No clubbing or cyanosis. Positive edema. Neurologic: Alert, awake, oriented x3. No acute focal deficits appreciated. Lymph Nodes: No cervical or axillary lymphadenopathy. Investigations: BUN 25, creatinine 1.02. NT-proBNP is 21,951 on admission and troponins were negati ve. Hemoglobin is 10.2. Assessment And Recommendations: 1.Acute on chronic systolic heart failure exacerbation. She seems to be much better and euvolemic. I recommend to start her on oral Lasix 40 mg daily and monitor BUN, creatinine, electrolytes. She d oes have a pen tester at [facility] that is following her cardiac status where she needs to follow up and implement guideline directed medical therapy for heart failure and she told me cornel t she had a workup done for it in the past. 2.Dyslipidemia. Continue statin. 3.Atrial fibrillation. This is controlled. Continue current management including Eliquis. SR/MODL Voice ID: [id number] Report ID: [id number]
--- NOTE | 2023-02-16 19:57 | P.PN ---
Subjective Date of Service: 02/16/23 Chief Complaint: Dyspnea, CHF exacerbation No acute events since admission. She reports shortness of breath. She appears confused compared to last admission. Her brother, Mr. Hairston, states that these symptoms started about 3 days ago since being discharged from [facility]. Review of Systems is unable to be obtained General: Weakness (generalized) Respiratory: Shortness of Breath Neurological: Confusion Physical Examination - Vital Signs Temperature: 97.2 F Blood Pressure: 108/78 Pulse: 86 Respirations: 20 Pulse Ox (%): 99 - Physical Exam General: Alert, In no apparent distress, Oriented x2 HEENT: Atraumatic, Mucous membr. moist/pink, Sclerae nonicteric Neck: JVD not distended Respiratory: Diminished, Rhonchi/gurgles Cardiovascular: Regular rate/rhythm, Normal S1 S2, No gallops, No rubs, No murmurs Gastrointestinal: Normal bowel sounds, Soft and benign, Non-distended, No tenderness, No rebound, No guarding Musculoskeletal: No clubbing Integumentary: No rashes Neurological: Normal speech, Normal affect - Studies Laboratory Data (last 24 hrs) 02/15/23 02/15/23 02/15/23 20:30 20:30 20:30 WBC 6.80 Hgb 10.7 L Hct 33.5 L Plt Count 332 PT 12.5 INR 1.14 Sodium 137 Potassium 4.3 BUN 26 H Creatinine 1.25 H Glucose 98 Magnesium 2.3 Total Bilirubin 0.4 AST 99 H ALT 108 H Alkaline Phosphatase 203 H Lipase 21 Assessment And Plan - Plan # Acute on Chronic Decompensated Systolic Congestive Heart Failure with Reduced Ejection Fraction # Severe Pulmonary Hypertension - Cardiology consulted and spoke with Dr. Del Angel - recommendations appreciated Transthoracic echocardiogram = "1. severely depressed left ventricular ejection fraction 10-15% 2. severe global hypokinesis 3. mild tricuspid regurgitation, mitral regurgitation, aortic insufficiency, pulmonic insuffic iency 4. small pericardial effusion (apical) 5. severe pulmonary hypertension with right ventricular systolic presure greater than 60 mmHg." - Continue furosemide, valsartan-sacubutril # Concern for Recurrent Post-Obstructive Pneumonia in Stage III Lung Cancer # Suspect Acute Toxic Metabolic Encephalopathy due to above # History of Stage III Lung Cancer s/p Chemoradiation - Evaluation thus far: - Does not meet sepsis criteria - Procalcitonin = 0.12 - CT head = "no acute intracranial abnormality identified." - Chest x-ray = "progressive patchy opacification in the right mid to lower lung. Other stable findings as above. Findings may relate to worsening pneumonia or pulmonary edema." - CT chest/abdomen/pelvis = "large right pleural effusion. Near complete atel ectasis right lower lobe. Masslike appearance to the right hilum. Limited evaluation without contrast. Probable chronic atelectasis and consolidation posterior PE. Mass not excluded. Small left effusion and left base airspace disease compatible with atelectasis. Focal left upper lobe airspace disease with differential of pneumonia or edema. Changes of centrilobular emphysema. Cardiomegaly. Abdomen and pelvis: Subcutaneous edema. Correlate for congestive failure or fluid overload. Large volume colonic stool compatible with constipation. No bowel obstruction. No acute inflammatory change. No free air. Low volume nonspecific free fluid cul-de-sac. No hydronephrosis." - Management plan: - Consulted Pulmonology - recommendations appreciated - Consulted Respiratory Therapy - Supplemental oxygen to maintain SpO2 > 92% - Started vancomycin + cefepime - Encouraged incentive spirometry # History of Cerebrovascular Accident # Chronic Atrial Fibrillation # Hypertension # Hyperlipidemia - Continue home amiodarone, apixaban # History of Pulmonary Embolism - Continue home apixaban # Moderate Protein Calorie Malnutrition - Nutrition consulted # Multiple Sclerosis - Reconcile home medications once verified Dallas Riley M.D.
[2023-02-16] MEDS: ENSURE ENLIVE 237 ML CAN PO SCH (20:06)
[2023-02-16] MEDS: HYDROCODONE/APAP 10/325 TAB PO PRN (20:07)
[2023-02-16] MEDS: JUVEN PACKET PO SCH (20:07)
[2023-02-16] MEDS: ATORVASTATIN 20 MG TAB PO SCH (20:07)
[2023-02-16] MEDS: FUROSEMIDE 20 MG/ 2ML VIAL IV SCH (20:16)
[2023-02-16] MEDS ORDERED: VANCOMYCIN 1 GM in NA CHLORIDE 0.9% 250 ML IVPB SCH (21:00)
[2023-02-16] MEDS ORDERED: VANCOMYCIN 1.5 GM in NA CHLORIDE 0.9% 500 ML IVPB ONE (21:00)
[2023-02-16] MEDS: CEFEPIME 1 GM in NA CHLORIDE 0.9% 100 ML IV SCH (21:36)
[2023-02-16] MEDS ORDERED: VANCOMYCIN 1 GM/VIAL ONE (22:51)
[2023-02-16] MEDS ORDERED: NA CHLORIDE 0.9% 500 ML ONE (22:51)
[2023-02-16] MEDS ORDERED: VANCOMYCIN 500 MG/VIAL ONE (22:51)
[2023-02-17 03:24] LABS: Absolute Lymphocytes (CBC) 2.2 K/uL (0.7-4.9); Hematocrit 29.2 % (36.0-45.0); Lymphocytes % 28.8 % (15.3-44.8); MCV 81.3 fL (80-100); MPV 9.4 fL (7.6-11.3); Platelets 264 thou/uL (152-406); RBC Red Blood Cell Count 3.59 M/uL (3.86-4.86)
[2023-02-17 03:41] LABS: Albumin 2.9 g/dL (3.4-5.0); Bilirubin Total 0.4 mg/dL (0.2-1.0); Potassium 4.1 mEq/L (3.5-5.1); Protein, Total 6.8 g/dL (6.4-8.2)
[2023-02-17] MEDS: ENSURE ENLIVE 237 ML CAN PO SCH ×2 (09:00→20:34)
[2023-02-17] MEDS: JUVEN PACKET PO SCH ×2 (09:00→20:34)
[2023-02-17] MEDS: FUROSEMIDE 20 MG/ 2ML VIAL IV SCH ×2 (10:22→17:21)
[2023-02-17] MEDS: TRAMADOL HCL 50 MG TAB PO PRN (10:22)
[2023-02-17] MEDS: SACUBITRIL/VALSARTAN 24/26 MG TAB PO SCH ×2 (10:22→20:34)
[2023-02-17] MEDS: AMIODARONE HCL 200 MG TAB PO SCH (10:22)
[2023-02-17] MEDS: CEFEPIME 1 GM in NA CHLORIDE 0.9% 100 ML IV SCH (10:23)
--- NOTE | 2023-02-17 10:25 | PN ---
Date of Progress Note: 02/17/2023 Subjective: Seen by bedside. No orthopnea or shortness of breath. Review of Systems: No chest pain, shortness of breath, orthopnea, but she has cough. No nausea, vomiting, diarrhea. Al l other systems reviewed and they were negative. Physical Examination: Vital Signs: Reviewed. Head and Neck: Pupils are equal, reactive to light. Intact eye movements. No JVD. No cervical lym phadenopathy. Neck is supple. Thyroid is not enlarged. Lungs: Clear to auscultation bilaterally. No rhonchi, wheezing, or crackles. No accessory muscle u se. Heart: Regular rate and rhythm. No extra sounds. Abdomen: Soft, nontender. Bowel sounds positive. No organomegaly. No masses or hernia. No rigidi ty or rebound. Extremities: No clubbing or cyanosis. Intact pulses. Skin: No rash. Neurologic: Alert, awake. No acute focal deficits appreciated. Lymph Nodes: No cervical or axillary lymphadenopathy. Investigations: Labs were reviewed. Assessment And Recommendations: 1.Chronic systolic heart failure. She appears to be euvolemic. Switch Lasix to oral 20 mg twice a day by mouth. Monitor BUN, creatinine, and electrolytes. 2.Pneumonia, postobstructive, on antibiotics. Cardiology will sign off and she is to follow up with her primary ultrasound technol post-discharge. /GABRIELLA Voice ID: [id number] Report ID: [id number]
[2023-02-17] MEDS ORDERED: NA CHLORIDE 0.9% 250 ML ONE (10:42)
--- NOTE | 2023-02-17 12:34 | RAD REPORT ---
EXAM DESCRIPTION: US - UPPER EXTREMITY VENOUS UNILATE - 02/17/2023 11:37 am CLINICAL HISTORY: Pain in left arm. Evaluate for DVT COMPARISON: None. TECHNIQUE: Real-time sonographic evaluation of the left upper extremity deep venous system was perfo rmed. FINDINGS: Normal compressibility, flow augmentation, phasic flow and spontaneous flow is identified in the left upper extremity deep venous system. No intraluminal filling defects seen. IMPRESSION: No DVT in the left upper extremity.
--- NOTE | 2023-02-17 15:06 | P.CNS ---
Date of Consult: 02/17/23 Reason for Consult: Shortness of breath Chief Complaint: Dyspnea, CHF exacerbation History of Present Illness: Patient is 77 years of age recurrent hospital admission with worsening dyspnea has multiple sclerosis severe terminal congestive heart failure history of lung cancer was receiving treatment at [facility] she has become very debilitated prior to that patient was living by her self eyes any fever chills or chest pain Allergies [place] And Derivatives Allergy (Verified 02/16/23 00:49) Itching Home Medications: Amiodarone HCl [Cordarone*] 200 mg PO DAILY 01/18/23 Apixaban [Eliquis] 5 mg PO BID 01/18/23 Atorvastatin Calcium [Lipitor*] 20 mg PO BEDTIME 01/18/23 Baclofen 10 mg PO TID 01/18/23 Duloxetine HCl 30 mg PO BID 01/18/23 Metoprolol Succinate 12.5 mg PO BID 01/18/23 Pregabalin 50 mg PO TID 01/18/23 Sacubitril/Valsartan [Entresto 24 mg-26 mg Tablet] 1 tab PO BID 01/18/23 Venlafaxine HCl [Effexor XR] 37.5 mg PO BEDTIME 01/18/23 Baclofen 30 mg PO TID 01/20/23 Hydrocodone Bit/Acetaminophen [[place] 10-325 Tablet] 1 tab PO Q6H PRN 01/20/23 Tramadol HCl 100 mg PO Q8H 01/20/23 Amox/Clavulanate [Augmentin 875-125 Tab*] 875 mg PO BID #10 tab 01/26/23 Ensure Enlive 237 ml PO BID #0 can 01/26/23 - Past Medical/Surgical History Diabetic: No -: Lung cancer -: PE -: MS -: Hypertension -: Hyperlipidemia -: Chronic systolic congestive heart failure -: A-fib -: Unknown Psychosocial/ Personal History: Patient currently lives at home with a family member, recently discharged from [facility]. - Social History Smoking Status: Former smoker Alcohol use: No CD- Drugs: No Caffeine use: No Place of Residence: Home Review of Systems General: Weakness Respiratory: Shortness of Breath Physical Examination Temp Pulse Resp BP Pulse Ox 97.8 F 82 16 114/70 94 02/17/23 12:00 02/17/23 12:00 02/17/23 12:00 02/17/23 12:00 02/17/23 12:00 General: Alert, Oriented x3 HEENT: Atraumatic Neck: Supple Respiratory: Clear to auscultation bilaterally, Diminished Cardiovascular: No edema, Regular rate/rhythm - Problems (1) Congestive heart failure Current Visit: Yes Status: Acute Plan: Patient is 77 years of age admitted with worsening dyspnea she is terminally ill patient has multiple sclerosis severe congestive heart failure ejection fraction of 10 to 15% patient to a history of lung cancer which she treated to receive treatment from [facility] with radiation and prior chemo doing to the brother she was functional until a few months ago has not deteriorated become bedbound now patient does have a pleural effusion on the right side I discussed with the family members regarding comfort care and DNR and placement avoid thoracentesis I doubt if the patient has sepsis can DC antibiotics plan for comfort care and count is not elevated blood cultures are negative Qualifiers: Heart failure type: systolic
--- NOTE | 2023-02-17 17:15 | P.PN ---
Subjective Date of Service: 02/17/23 Chief Complaint: Dyspnea, CHF exacerbation No new events. She reports persistent malaise, and shortness of breath. She is less confused this morning. She has been placed NPO for possible thoracentesis this morning pending Pulmonary recommendations. Her and her brother, Mr. Hairston, are in agreement with this plan. She denies any chest pain or palpitations. Review of Systems 10-point ROS is otherwise unremarkable General: Weakness, Malaise Respiratory: Shortness of Breath Physical Examination - Vital Signs Temperature: 97.8 F Blood Pressure: 114/70 Pulse: 82 Respirations: 16 Pulse Ox (%): 94 Assessment And Plan - Plan - Physical Exam General: Alert, In no apparent distress, Oriented x2 HEENT: Atraumatic, Mucous membr. 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 Del Angel - recommendations appreciated Transthoracic echocardiogram = "1. severely depressed left ventricular ejection fraction 10-15% 2. severe global hypokinesis 3. mild tricuspid regurgitation, mitral regurgitation, aortic insufficiency, pulmonic insufficiency 4. small pericardial effusion (apical) 5. severe pulmonary hypertension with right ventricular systolic presure greater than 60 mmHg." - Continue furosemide, valsartan-sacubutril - Switch from IV to PO furosemide today # Concern for Recurrent Post-Obstructive Pneumonia in Stage III Lung Cancer # Suspect Acute Toxic Metabolic Encephalopathy due to above # History of Stage III Lung Cancer s/p Chemoradiation - Evaluation thus far: - Does not meet sepsis criteria - Procalcitonin = 0.12 - CT head = "no acute intracranial abnormality identified." - Chest x-ray = "progressive patchy opacification in the right mid to lower lung. Other stable findings as above. Findings may relate to worsening pneumonia or pulmonary edema." - CT chest/abdomen/pelvis = "large right pleural effusion. Near complete atelectasis right lower lobe. Masslike appearance to the right hilum. Limited evaluation without contrast. Probable chronic atelectasis and consolidation posterior PE. Mass not excluded. Small left effusion and left base airspace d isease compatible with atelectasis. Focal left upper lobe airspace disease with differential of pneumonia or edema. Changes of centrilobular emphysema. Cardiomegaly. Abdomen and pelvis: Subcutaneous edema. Correlate for congestive failure or fluid overload. Large volume colonic stool compatible with constipation. No bowel obstruction. No acute inflammatory change. No free air. Low volume nonspecific free fluid cul-de-sac. No hydronephrosis." - Management plan: - Consulted Pulmonology and spoke with Dr. Hassan - recommendations appreciated - Appreciate recs regarding possible thoracentesis - Consulted Respiratory Therapy - Supplemental oxygen to maintain SpO2 > 92% - Started vancomycin + cefepime - Encouraged incentive spirometry # History of Cerebrovascular Accident # Chronic Atrial Fibrillation # Hypertension # Hyperlipidemia - Continue home amiodarone, apixaban # History of Pulmonary Embolism - Continue home apixaban # Moderate Protein Calorie Malnutrition - Nutrition consulted # Multiple Sclerosis - Reconcile home medications once verified Dr. Hassan will take over as the primary hospitalist for Ms. Aguirre's care starting tomorrow on 02/18/2023 at 06:00 AM. Signout has been completed. Dallas Riley M.D.
[2023-02-17] MEDS: HYDROCODONE/APAP 10/325 TAB PO PRN (17:40)
[2023-02-17] MEDS: ATORVASTATIN 20 MG TAB PO SCH (20:34)
[2023-02-17] MEDS: CEFEPIME 2 GM in NA CHLORIDE 0.9% 100 ML IV SCH (20:34)
[2023-02-17] MEDS ORDERED: VANCOMYCIN 1 GM in NA CHLORIDE 0.9% 250 ML IVPB SCH (21:00)
[2023-02-18 02:48] LABS: Absolute Lymphocytes (CBC) 1.8 K/uL (0.7-4.9); Hematocrit 29.9 % (36.0-45.0); Lymphocytes % 23.8 % (15.3-44.8); MPV 8.7 fL (7.6-11.3); Platelets 280 thou/uL (152-406); RBC Red Blood Cell Count 3.69 M/uL (3.86-4.86)
[2023-02-18 03:07] LABS: Albumin 2.9 g/dL (3.4-5.0); Bilirubin Total 0.4 mg/dL (0.2-1.0); Potassium 4.1 mEq/L (3.5-5.1); Protein, Total 6.9 g/dL (6.4-8.2)
[2023-02-18] MEDS: HYDROCODONE/APAP 10/325 TAB PO PRN ×3 (05:36→23:05)
[2023-02-18] MEDS: JUVEN PACKET PO SCH ×2 (09:00→20:59)
[2023-02-18] MEDS: FUROSEMIDE 20 MG/ 2ML VIAL IV SCH (09:07)
[2023-02-18] MEDS: SACUBITRIL/VALSARTAN 24/26 MG TAB PO SCH ×2 (09:07→20:58)
[2023-02-18] MEDS: AMIODARONE HCL 200 MG TAB PO SCH (09:07)
[2023-02-18] MEDS: ENSURE ENLIVE 237 ML CAN PO SCH ×2 (09:07→20:59)
[2023-02-18] MEDS: CEFEPIME 2 GM in NA CHLORIDE 0.9% 100 ML IV SCH (09:08)
[2023-02-18] MEDS: TRAMADOL HCL 50 MG TAB PO PRN ×2 (09:10→20:58)
[2023-02-18] MEDS: LACTULOSE 20 GM/30 ML UCUP PO PRN ×2 (11:52→23:05)
--- NOTE | 2023-02-18 12:54 | P.PN ---
Subjective Date of Service: 02/18/23 Chief Complaint: Dyspnea, CHF exacerbation Patient's condition is stable no change brother at the bedside Review of Systems General: Weakness Respiratory: Shortness of Breath Physical Examination - Vital Signs Temperature: 98 F Blood Pressure: 119/72 Pulse: 90 Respirations: 20 Pulse Ox (%): 96 - Physical Exam General: Alert, Oriented x3, Mild distress Respiratory: Clear to auscultation bilaterally, Diminished Cardiovascular: No edema, Regular rate/rhythm, Normal S1 S2 Assessment And Plan - Current Problems (Diagnosis) (1) Congestive heart failure Current Visit: Yes Status: Acute Plan: Patient has terminal medical conditions including terminal CHF has a history of lung cancer multiple sclerosis nurse of breath seem to have improved cussed with the family members and the patient agreed to be discharged home comfort care is to p.o. Lasix renal function is slightly worse and wants to have the Cantrell catheter to be left in place for worker informed discharge planning Qualifiers: Heart failure type: systolic
[2023-02-18] MEDS: ATORVASTATIN 20 MG TAB PO SCH (20:56)
[2023-02-18] MEDS: METOPROLOL XL 25 MG TAB PO SCH (20:57)
[2023-02-19 06:11] LABS: Potassium 4.2 mEq/L (3.5-5.1)
[2023-02-19] MEDS: AMIODARONE HCL 200 MG TAB PO SCH (08:29)
[2023-02-19] MEDS: SACUBITRIL/VALSARTAN 24/26 MG TAB PO SCH (08:30)
[2023-02-19] MEDS: METOPROLOL XL 25 MG TAB PO SCH (08:31)
[2023-02-19] MEDS: ENSURE ENLIVE 237 ML CAN PO SCH (08:56)
[2023-02-19] MEDS: JUVEN PACKET PO SCH (09:00)
[2023-02-19] MEDS ORDERED: FUROSEMIDE 40 MG TABLET PO SCH (09:00)
[2023-02-19 09:20] VITALS: O2SAT 96
--- NOTE | 2023-02-19 10:46 | P.DS ---
Admission Date: 02/15/23 Discharge Date: 02/19/23 Disposition: ROUTINE DISCHARGE Discharge Condition: FAIR Reason for Admission: Dyspnea, CHF exacerbation - Problems (1) Congestive heart failure Current Visit: Yes Status: Acute Qualifiers: Heart failure type: systolic Brief History of Present Illness: Patient is 77 years of age recurrent hospital admission with worsening dyspnea has multiple sclerosis severe terminal congestive heart failure history of lung cancer was receiving treatment at [facility] she has become very debilitated prior to that patient was living by her self eyes any fever chills or chest pain Hospital Course: Patient is 77 years of age admitted with respiratory distress pleural effusion end-stage cardiomyopathy multiple sclerosis also has history of lung cancer patient was admitted for comfort care was started on Lasix At the time of discharge alert oriented responsive cooperative chest clear paracentesis was not performed probably futile as patient is not in any respiratory distress was discharged home under the care of her sister and home health chemistries reviewed mildly anemic with no other change in her medication list Vital Signs/Physical Exam: Temp Pulse Resp BP Pulse Ox 97.6 F 82 16 104/76 97 02/19/23 08:00 02/19/23 08:31 02/19/23 08:00 02/19/23 08:31 02/19/23 08:00 Laboratory Data at Discharge: WBC 7.50 thou/uL (4.3-10.9) 02/18/23 02:26 Hgb 9.7 g/dL (12.0-15.0) L 02/18/23 02:26 Hct 29.9 % (36.0-45.0) L 02/18/23 02:26 Plt Count 280 thou/uL (152-406) 02/18/23 02:26 PT 12.5 SECONDS (9.5-12.5) 02/15/23 20:30 INR 1.14 02/15/23 20:30 Sodium 140 mEq/L (136-145) 02/19/23 05:44 Potassium 4.2 mEq/L (3.5-5.1) 02/19/23 05:44 BUN 32 mg/dL (7-18) H 02/19/23 05:44 Creatinine 0.76 mg/dL (0.55-1.02) 02/19/23 05:44 Glucose 103 mg/dL (74-106) 02/19/23 05:44 Magnesium 2.3 mg/dL (1.6-2.4) 02/15/23 20:30 Total Bilirubin 0.4 mg/dL (0.2-1.0) 02/18/23 02:26 AST 44 U/L (15-37) H 02/18/23 02:26 ALT 84 U/L (13-56) H 02/18/23 02:26 Alkaline Phosphatase 153 U/L (45-117) H 02/18/23 02:26 Triglycerides 48 mg/dL (<150) 02/16/23 02:13 Cholesterol 108 mg/dL (<200) 02/16/23 02:13 HDL Cholesterol 57 mg/dL (40-60) 02/16/23 02:13 Cholesterol/HDL Ratio 1.89 02/16/23 02:13 Lipase 16 U/L (13-75) 02/16/23 02:13 Home Medications: Amiodarone HCl [Cordarone*] 200 mg PO DAILY 01/18/23 Apixaban [Eliquis] 5 mg PO BID 01/18/23 Atorvastatin Calcium [Lipitor*] 20 mg PO BEDTIME 01/18/23 Baclofen 10 mg PO TID 01/18/23 Duloxetine HCl 30 mg PO BID 01/18/23 Metoprolol Succinate 12.5 mg PO BID 01/18/23 Pregabalin 50 mg PO TID 01/18/23 Sacubitril/Valsartan [Entresto 24 mg-26 mg Tablet] 1 tab PO BID 01/18/23 Venlafaxine HCl [Effexor XR] 37.5 mg PO BEDTIME 01/18/23 Baclofen 30 mg PO TID 01/20/23 Hydrocodone Bit/Acetaminophen [[place] 10-325 Tablet] 1 tab PO Q6H PRN 01/20/23 Tramadol HCl 100 mg PO Q8H 01/20/23 Amox/Clavulanate [Augmentin 875-125 Tab*] 875 mg PO BID #10 tab 01/26/23 Ensure Enlive 237 ml PO BID #0 can 01/26/23 Furosemide [Lasix] 40 mg PO DAILY 30 Days #30 tab 02/19/23 New Medications: Furosemide [Lasix] 40 mg PO DAILY 30 Days #30 tab Followup: NONE,NONE [Primary Care Provider] -
[2023-02-19 12:43] VITALS: BP 109/73; TEMP 97.1
== END 2023-02-19 13:00 | disposition home or self-care (01) | DRG 291 ==
LOC: ER 19:13 → ERHOLD 22:33 → 2ND 22:44 → 4TH 02-18 17:48
PROVIDERS: ADMIT Internal Medicine; ATTEND Internal Medicine Sleep Medicine
DX: I13.0 Hypertensive heart and chronic kidney disease with heart failure and stage 1 through stage 4 chronic kidney disease, or unspecified chronic kidney disease (principal); G92.8 Other toxic encephalopathy; I50.23 Acute on chronic systolic (congestive) heart failure; J18.9 Pneumonia, unspecified organism; I48.20 Chronic atrial fibrillation, unspecified; E44.0 Moderate protein-calorie malnutrition; N18.9 Chronic kidney disease, unspecified; D63.1 Anemia in chronic kidney disease; G35 Multiple sclerosis; I08.3 Combined rheumatic disorders of mitral, aortic and tricuspid valves; I27.20 Pulmonary hypertension, unspecified; E78.00 Pure hypercholesterolemia, unspecified; Z85.3 Personal history of malignant neoplasm of breast; Z85.43 Personal history of malignant neoplasm of ovary; Z68.20 Body mass index [BMI] 20.0-20.9, adult; Z79.01 Long term (current) use of anticoagulants; Z92.21 Personal history of antineoplastic chemotherapy; Z90.49 Acquired absence of other specified parts of digestive tract; Z86.711 Personal history of pulmonary embolism; Z90.710 Acquired absence of both cervix and uterus; Z96.651 Presence of right artificial knee joint; Z87.891 Personal history of nicotine dependence; Z85.118 Personal history of other malignant neoplasm of bronchus and lung; Z79.899 Other long term (current) drug therapy
CPT/HCPCS: 36415; 51702; 70450; 71045; 71250; 74176; 80048; 80053; 80061; 80076; 81001; 82805; 83605; 83690; 83735; 83880; 84145; 84439; 84443; 84484; 85025; 85610; 87040; 87804; 87811; 93005; 93971; 96374; 96375; 99283; 99285; J0692; J1940; J2185; J7030; J7040; J7050

== ENCOUNTER 2023-04-24 10:41 | Observation (INO) | payer OTHER ==
[2023-04-24] MEDS ORDERED: NA CHLORIDE 0.9% 500 ML ONE (11:21)
[2023-04-24] MEDS ORDERED: NA CHLORIDE 0.9% 1,000 ML ONE (11:21)
[2023-04-24] MEDS ORDERED: MORPHINE 4 MG/ML SYR ONE ×2 (11:31→12:06)
[2023-04-24] MEDS ORDERED: ONDANSETRON 4 MG/2 ML VIAL ONE (11:31)
--- NOTE | 2023-04-24 11:39 | RAD REPORT ---
EXAM DESCRIPTION: CT - Abdomen Pelvis Wo Contrast - 04/24/2023 11:26 am CLINICAL HISTORY: Abdominal pain. ABD PAIN COMPARISON: <Comparisons> TECHNIQUE: CT imaging of the abdomen and pelvis was performed without contrast. Solid organ, bowel a nd vascular assessment is limited due to lack of IV and oral contrast. All CT scans are performed using dose optimization technique as appropriate and may include automated exposure control or mA/KV adjustment according to patient size. FINDINGS: Small right pleural effusion.Moderate cardiomegaly. The liver, spleen, pancreas, adrenal glands and kidneys are within normal limits for a limited non-co ntrast examination. No bowel obstruction, free air, free fluid or abscess. Moderate stool is present throughout the colon . Appendectomy. Diffuse osteopenia is seen. Moderate multilevel lumbar degenerative changes. No lytic or blastic bone lesion is evident. IMPRESSION: No acute intra-abdominal or pelvic findings. Small right pleural effusion with cardiomegaly noted. A limited non-contrast examination was performed as detailed.
[2023-04-24 11:40] LABS: Protime INR 1.15
[2023-04-24 11:50] LABS: Absolute Lymphocytes (CBC) 2.2 K/uL (0.7-4.9); Hematocrit 35.5 % (36.0-45.0); Lymphocytes % 30.9 % (15.3-44.8); MCV 73.4 fL (80-100); MPV 8.2 fL (7.6-11.3); Platelets 296 thou/uL (152-406); RBC Red Blood Cell Count 4.84 M/uL (3.86-4.86)
[2023-04-24 11:55] LABS: Albumin 3.1 g/dL (3.4-5.0); Bilirubin Direct 0.3 mg/dL (0-0.2); Bilirubin Indirect, Calculated 0.4 mg/dL (0.2-0.8); Bilirubin Total 0.7 mg/dL (0.2-1.0); Magnesium 1.8 mg/dL (1.6-2.4); Potassium 3.6 mEq/L (3.5-5.1); Protein, Total 7.4 g/dL (6.4-8.2); Troponin High Sensitivity 16.2 pg/mL (<58.9)
[2023-04-24 12:02] LABS: Urine Bacteria None Seen /HPF (<20); Urine Bilirubin NEGATIVE (Negative); Urine Blood 1+ (Negative); Urine Clarity Clear (Clear); Urine Color Light-Yellow (Yellow); Urine Glucose NEGATIVE (Negative); Urine Protein 1+ (Negative); Urine Urobilinogen Normal (Normal); Urine pH 6.5 (5.0-7.0)
[2023-04-24 12:14] LABS: Anisocytosis 1+; Blood Morphology Comment NOTED (NOT SEEN); Platelet Estimate ADEQ; Platelets, Giant FEW; Poikilocytosis 1+; Target Cells FEW; White Blood Cell Scan OK (OK)
--- NOTE | 2023-04-24 12:29 | RAD REPORT ---
EXAM DESCRIPTION: CT - Head Brain Wo Cont - 04/24/2023 12:12 pm CLINICAL HISTORY: WEAKNESS Headache, drowsiness, weakness COMPARISON: <Comparisons> TECHNIQUE: All CT scans are performed using dose optimization technique as appropriate and may inclu de automated exposure control or mA/KV adjustment according to patient size. FINDINGS: No intracranial hemorrhage, hydrocephalus or extra-axial fluid collection.Moderate brain a trophy.No areas of brain edema or evidence of midline shift. The paranasal sinuses and mastoids are clear. The calvarium is intact. IMPRESSION: No acute intracranial abnormality.
--- NOTE | 2023-04-24 12:39 | RAD REPORT ---
EXAM DESCRIPTION: RAD - Chest Single View - 04/24/2023 12:32 pm CLINICAL HISTORY: ABDOMINAL DISTENTION Chest pain. COMPARISON: <Comparisons> FINDINGS: Portable technique limits examination quality. Mild interstitial pulmonary edema seen. Small right pleural effusion. The heart is moderately enlarge d. No displaced fractures. IMPRESSION: Mild CHF.
--- NOTE | 2023-04-24 12:43 | RAD REPORT ---
EXAM DESCRIPTION: RAD - Pelvis - 04/24/2023 12:32 pm CLINICAL HISTORY: PAIN COMPARISON: <Comparisons> FINDINGS: Diffuse osteopenia. Moderate degenerative changes present in both hips. No acute fracture or dislocation seen.
--- NOTE | 2023-04-24 13:15 | EDPHYS ---
Physician Documentation [facility] Name: Anel Aguirre Age: 77 yrs Sex: Female : 1945 Arrival Date: 04/24/2023 Time: 10:41 Bed 14 Private MD: LUZMARIA Physician Raoul Stratton HPI: 04/24 11:46 This 77 yrs old Black Female presents to ER via EMS with complaints of Hip Pain. amelia 11:44 The patient or guardian reports decreased range of motion, pain. that occurred at an [facility] unknown site, sustained from unknown reason. 11:46 The complaints affect the right leg. Onset: The symptoms/episode began/occurred 3 amelia day(s) ago. Modifying factors: The symptoms are alleviated by nothing, the symptoms are aggravated by nothing. The patient presents with decreased range of motion, pain, that is acute. The complaints affect the lateral aspect of right thigh, lateral aspect of right knee, lateral aspect of right calf, right hamstring, posterior aspect of right knee, right calf, medial aspect of right thigh, medial aspect of right knee, medial aspect of right calf, right quadriceps, right knee and right escoto. Context: The problem was sustained at an unknown site, resulted from an unknown cause, the patient is not able to ambulate. Modifying factors: The symptoms are alleviated by nothing. the symptoms are aggravated by nothing. Historical: - Allergies: 10:51 No Known Allergies; tm6 - PMHx: 10:51 breast cancer; CKD; HEART FAILURE; Hypercholesterolemia; Hypercholesterolemia; tm6 Hypertensive disorder; Hypertensive disorder; Multiple Sclerosis; ovarian cancer; Pulmonary Embolism; Pulmonary Embolism; Renal Mass; trigeminal neuralgia; - PSHx: 10:51 Appendectomy; breast; hysterectomy; Right knee replacement; ovarian; tm6 - Immunization history:: Adult Immunizations up to date. - Social history:: Smoking status: unknown. - Family history:: not pertinent. ROS: 11:44 Constitutional: Negative for fever, chills, and weight loss, Eyes: Negative for injury, amelia pain, redness, and discharge, ENT: Negative for injury, pain, and discharge, Neck: Negative for injury, pain, and swelling, Cardiovascular: Negative for chest pain, palpitations, and edema, Respiratory: Negative for shortness of breath, cough, wheezing, and pleuritic chest pain, Abdomen/GI: Negative for abdominal pain, nausea, vomiting, diarrhea, and constipation, Back: Negative for injury and pain, : Negative for injury, bleeding, discharge, and swelling, Skin: Negative for injury, rash, and discoloration, Neuro: Negative for headache, weakness, numbness, tingling, and seizure, Psych: Negative for depression, anxiety, suicide ideation, homicidal ideation, and hallucinations, Allergy/Immunology: Negative for hives, rash, and allergies, Endocrine: Negative for neck swelling, polydipsia, polyuria, polyphagia, and marked weight changes, Hematologic/Lymphatic: Negative for swollen nodes, abnormal bleeding, and unusual bruising, 11:44 MS/extremity: Positive for decreased range of motion, pain, of the right leg, Exam: 11:44 Constitutional: This is a well developed, well nourished patient who is awake, alert, amelia and in no acute distress. Head/Face: Normocephalic, atraumatic. Eyes: Pupils equal round and reactive to light, extra-ocular motions intact. Lids and lashes normal. Conjunctiva and sclera are non-icteric and not injected. Cornea within normal limits. Periorbital areas with no swelling, redness, or edema. ENT: Nares patent. No nasal discharge, no septal abnormalities noted. Tympanic membranes are normal and external auditory canals are clear. Oropharynx with no redness, swelling, or masses, exudates, or evidence of obstruction, uvula midline. Mucous membranes moist. Neck: Trachea midline, no thyromegaly or masses palpated, and no cervical lymphadenopathy. Supple, full range of motion without nuchal rigidity, or vertebral point tenderness. No Meningismus. Chest/axilla: Normal chest wall appearance and motion. Nontender with no deformity. No lesions are appreciated. Cardiovascular: Regular rate and rhythm with a normal S1 and S2. No gallops, murmurs, or rubs. Normal PMI, no JVD. No pulse deficits. Respiratory: Lungs have equal breath sounds bilaterally, clear to auscultation and percussion. No rales, rhonchi or wheezes noted. No increased work of breathing, no retractions or nasal flaring. Abdomen/GI: Soft, non-tender, with normal bowel sounds. No distension or tympany. No guarding or rebound. No evidence of tenderness throughout. Back: No spinal tenderness. No costovertebral tenderness. Full range of motion. Female : Normal external genitalia. Skin: Warm, dry with normal turgor. Normal color with no rashes, no lesions, and no evidence of cellulitis. Psych: Awake, alert, with orientation to person, place and time. Behavior, mood, and affect are within normal limits. 11:44 Musculoskeletal/extremity: Extremities: noted in the right leg: decreased ROM, ROM: limited active range of motion, in the right leg, Circulation is intact in all extremities. Sensation intact. Compartment Syndrome exam of affected extremity: is normal. DVT Exam: negative Homans' sign noted on exam, no appreciated bluish discoloration, no erythema, no increased warmth, pain, swelling, tenderness, of the right leg, 13:07 ECG was reviewed by the Attending Physician. [facility] Vital Signs: 10:45 BP 113 / 80; Pulse 103; Resp 33; Temp 98.6(O); Pulse Ox 99% on R/A; Weight 59.5 kg; tm6 Height 5 ft. 8 in. ; Pain 8/10; 12:23 BP 115 / 89; Pulse 103; Resp 26; Pulse Ox 98% on R/A; tm6 13:30 BP 109 / 79; Pulse 98; Pulse Ox 97% on 2 lpm NC; ld1 13:30 BP 109 / 81; Pulse 103; ld1 15:48 BP 96 / 63; Pulse 96; Resp 20; Pulse Ox 98% on 2 lpm NC; ld1 16:09 BP 116 / 102; Pulse 99; Resp 22; Pulse Ox 98% on 2 lpm NC; ld1 16:10 Pain 0/10; ld1 17:11 BP 103 / 75; Pulse 95; Resp 18; Temp 97.6(O); Pulse Ox 98% on 2 lpm NC; tm6 10:45 Body Mass Index 19.94 (59.50 kg, 172.72 cm) tm6 10:45 Pain Scale: Adult tm6 16:10 Pain Scale: Adult ld1 MDM: 11:02 Patient medically screened. [facility] 11:47 Differential diagnosis: contusion, hip fracture, intertrochanteric fracture, femoral amelia neck fracture, femoral shaft fracture, bursitis, arthritis, strain. Data reviewed: vital signs, nurses notes, lab test result(s), EKG, radiologic studies, CT scan, doppler, plain films. Consideration of Admission/Observation Escalation of care including admission/observation considered. I considered the following discharge prescriptions or medication management in the emergency department Medications were administered in the Emergency Department. See MAR. Test considered but Not performed: MRI: no mri done, not available. Historians other than the Patient: Spouse/Significant Other: . Care significantly affected by the following chronic conditions: Hypertension, Congestive Heart Failure, Chronic Kidney Disease, breast cancer. Counseling: I had a detailed discussion with the patient and/or guardian regarding the historical points, exam findings, and any diagnostic results supporting the discharge/admit diagnosis, lab results, radiology results. 04/24 11:04 Order name: Basic Metabolic Panel; Complete Time: 12:33 [facility] 04/24 11:04 Order name: CBC with Diff; Complete Time: 12:33 [facility] 04/24 11:04 Order name: LFT's; Complete Time: 12:33 [facility] 04/24 11:04 Order name: Magnesium; Complete Time: 12:33 [facility] 04/24 11:04 Order name: NT PRO-BNP; Complete Time: 12:33 [facility] 04/24 11:04 Order name: PT-INR; Complete Time: 11:43 [facility] 04/24 11:04 Order name: Troponin HS; Complete Time: 12:33 [facility] 04/24 11:04 Order name: Urinalysis w/ reflexes; Complete Time: 12:33 [facility] 04/24 12:14 Order name: CBC Smear Scan; Complete Time: 12:33 [facility] 04/24 15:08 Order name: T4 Free [facility] 04/24 15:08 Order name: Thyroid Stimulating Hormone [facility] 04/24 15:08 Order name: Urinalysis w/ reflexes [facility] 04/24 15:08 Order name: Basic Metabolic Panel [facility] 04/24 15:08 Order name: Basic Metabolic Panel [facility] 04/24 15:08 Order name: Basic Metabolic Panel [facility] 04/24 15:08 Order name: Basic Metabolic Panel [facility] 04/24 15:08 Order name: Basic Metabolic Panel [facility] 04/24 15:08 Order name: Basic Metabolic Panel [facility] 04/24 15:08 Order name: CBC with Automated Diff EDMN 04/24 15:08 Order name: CBC with Automated Diff EDMS 04/24 15:08 Order name: CBC with Automated Diff EDMN 04/24 15:08 Order name: CBC with Automated Diff EDMS 04/24 15:08 Order name: CBC with Automated Diff EDMS 04/24 15:08 Order name: CBC with Automated Diff EDMS 04/24 15:08 Order name: Magnesium EDMS 04/24 15:08 Order name: Magnesium EDMS 04/24 15:08 Order name: Magnesium EDMS 04/24 15:08 Order name: Magnesium EDMS 04/24 15:08 Order name: Magnesium EDMS 04/24 15:08 Order name: Magnesium EDMS 04/24 15:08 Order name: Phosphorus EDMS 04/24 15:08 Order name: Phosphorus EDMS 04/24 15:08 Order name: Phosphorus EDMS 04/24 15:08 Order name: Phosphorus EDMS 04/24 15:08 Order name: Phosphorus EDMS 04/24 15:08 Order name: Phosphorus EDMS 04/24 15:08 Order name: Troponin High Sensitivity EDMS 04/24 15:08 Order name: Troponin High Sensitivity EDMS 04/24 15:08 Order name: Troponin High Sensitivity EDMS 04/24 11:04 Order name: XRAY Chest (1 view); Complete Time: 13:05 [facility] 04/24 11:04 Order name: CT Abd/Pelvis - Without Contrast; Complete Time: 11:43 [facility] 04/24 11:04 Order name: Pelvis XRAY; Complete Time: 13:05 [facility] 04/24 11:43 Order name: CT Head Brain wo Cont; Complete Time: 12:33 [facility] 04/24 11:43 Order name: US Extremity Venous W Compression Horace [facility] 04/24 11:04 Order name: EKG; Complete Time: 11:05 [facility] 04/24 15:08 Order name: CONS [facility] Cons [facility] 04/24 15:08 Order name: Physical Therapy Consult EDMN 04/24 11:04 Order name: Cardiac monitoring; Complete Time: 11:05 [facility] 04/24 11:04 Order name: EKG - Nurse/Tech; Complete Time: 11:52 [facility] 04/24 11:04 Order name: IV Saline Lock; Complete Time: 11:05 [facility] 04/24 11:04 Order name: Labs collected and sent; Complete Time: 11:15 [facility] 04/24 11:04 Order name: O2 Per Protocol; Complete Time: 11:05 [facility] 04/24 11:04 Order name: O2 Sat Monitoring; Complete Time: 11:05 amelia EC:07 Rate is 103 beats/min. Rhythm is regular. QRS [place] is Normal. CA interval is normal. amelia QRS interval is normal. QT interval is normal. No Q waves. T waves are Normal. No ST changes noted. Clinical impression: Sinus tachycardia. Interpreted by me. Reviewed by me. Administered Medications: 13:07 Discontinued: ns 0.9% 1000 ml IV at 125 ml/hr continuous amelia 13:07 Discontinued: ns 0.9% 500 ml IV at bolus once amelia 11:20 Drug: morphine IVP or IV 4 mg IVP once over 4 mins Route: IVP; Infused Over: 4 mins; ld1 Site: right forearm; 11:20 Drug: Ondansetron IVP 4 mg IVP once; over 2 minutes Route: IVP; Site: right forearm; ld1 11:53 Drug: NS 0.9% IV 1000 ml IV at 125 ml/hr continuous Route: IV; Rate: 125 ml/hr; Site: ld1 right forearm; 11:53 Drug: NS 0.9% IV 500 ml IV at bolus once Route: IV; Rate: bolus; Site: right forearm; ld1 11:54 Drug: morphine IVP or IV 4 mg IVP once over 4 mins; Verbal order from Dr. Stratton ld1 Route: IVP; Infused Over: 4 mins; Site: right forearm; 13:31 Drug: Furosemide IVP 20 mg IVP once; give over 2 minutes Route: IVP; Site: right ld1 antecubital; Disposition Summary: 04/24/23 13:14 Hospitalization Ordered Notes: Hospitalization Status: Observation amelia Provider: Fabián Forrest cha [facility] amelia Condition: Stable amelia Problem: new amelia Symptoms: have improved amelia Bed/Room Type: Standard amelia Room Assignment: [id number](04/24/23 16:10) eb Diagnosis - Unspecified symptoms and signs involving the musculoskeletal system amelia - Combined systolic (congestive) and diastolic (congestive) heart failure amelia - Edema, unspecified amelia - Pressure ulcer of buttock - stage 1 amelia Discharge Instructions: - Discharge Summary Sheet amelia - Joint Pain amelia - Arthritis amelia - Edema amelia - Musculoskeletal Pain amelia - Edema, [id number] amelia - Hip Pain amelia Forms: - Medication Reconciliation Form amelia - SBAR form amelia - Leadership Thank You Letter amelia Prescriptions: - acetaminophen-codeine 300-30 mg Oral tablet - take 2 tablet ORAL route every 6 hours as needed for pain; 20 tablet; Refills: amelia 0, Product Selection Permitted - Cipro 250 mg Oral tablet - take 1 tablet ORAL route every 12 hours; 14 tablet; Refills: 0, Product amelia Selection Permitted Signatures: Dispatcher [employer] Raoul Cardenas MD MD cha Botello, Elizabeth eb Sims, Lauren, RN RN ld1 Demetrius Khan RN RN tm6 Corrections: (The following items were deleted from the chart) 16:10 13:14 amelia dangelo
--- NOTE | 2023-04-24 13:15 | ER ---
Nurse's Notes [facility] Name: Anel Aguirre Age: 77 yrs Sex: Female : 1945 Arrival Date: 04/24/2023 Time: 10:41 Bed 14 Private MD: Diagnosis: Unspecified symptoms and signs involving the musculoskeletal system;Combined systolic (congestive) and diastolic (congestive) heart failure;Edema, unspecified;Pressure ulcer of buttock-stage 1 Presentation: 04/24 10:45 Chief complaint: EMS states: bilateral hip pain x2 days. Coronavirus screen: Vaccine tm6 status: Patient reports receiving the 2nd dose of the covid vaccine. Ebola Screen: Patient negative for fever greater than or equal to 101.5 degrees Fahrenheit, and additional compatible Ebola Virus Disease symptoms Patient denies exposure to infectious person. Patient denies travel to an Ebola-affected area in the 21 days before illness onset. No symptoms or risks identified at this time. Initial Sepsis Screen: Does the patient meet any 2 criteria? RR > 20 per min. HR > 90 bpm. Does the patient have a suspected source of infection? No. Patient's initial sepsis screen is negative. Risk Assessment: Do you want to hurt yourself or someone else? Patient reports no desire to harm self or others. Onset of symptoms was April 22, 2023. 10:45 Method Of Arrival: EMS: [facility] tm6 10:45 Acuity: WILLIAM 3 tm6 Triage Assessment: 10:51 General: Appears uncomfortable, Behavior is cooperative. Pain: Complains of pain in tm6 pelvis. EENT: No signs and/or symptoms were reported regarding the EENT system. Neuro: Level of Consciousness is awake, alert, obeys commands, Oriented to person, place, time, situation. Cardiovascular: Capillary refill < 3 seconds Patient's skin is warm and dry. Respiratory: Airway is patent Respiratory effort is even, unlabored, Respiratory pattern is regular, symmetrical. GI: Abdomen is flat, non-distended. : No signs and/or symptoms were reported regarding the genitourinary system. Derm: No signs and/or symptoms reported regarding the dermatologic system. Musculoskeletal: Reports pain in pelvis. Historical: - Allergies: 10:51 No Known Allergies; tm6 - PMHx: 10:51 breast cancer; CKD; HEART FAILURE; Hypercholesterolemia; Hypercholesterolemia; tm6 Hypertensive disorder; Hypertensive disorder; Multiple Sclerosis; ovarian cancer; Pulmonary Embolism; Pulmonary Embolism; Renal Mass; trigeminal neuralgia; - PSHx: 10:51 Appendectomy; breast; hysterectomy; Right knee replacement; ovarian; tm6 - Immunization history:: Adult Immunizations up to date. - Social history:: Smoking status: unknown. - Family history:: not pertinent. Screenin:53 [facility] ED Fall Risk Assessment (Adult) History of falling in the last 3 months, tm6 including since admission No falls in past 3 months (0 pts). Abuse screen: Denies threats or abuse. Denies injuries from another. Nutritional screening: No deficits noted. Tuberculosis screening: No symptoms or risk factors identified. Assessment: 10:53 General: see triage assessment. tm6 12:23 Reassessment: Patient appears in no apparent distress at this time. Patient and/or tm6 family updated on plan of care and expected duration. Pain level reassessed. Patient is alert, oriented x 3, equal unlabored respirations, skin warm/dry/pink. 14:22 Reassessment: Patient appears in no apparent distress at this time. Patient and/or ld1 family updated on plan of care and expected duration. Pain level reassessed. Patient is alert, oriented x 3, equal unlabored respirations, skin warm/dry/pink. 15:44 Reassessment: Patient appears in no apparent distress at this time. Patient and/or ld1 family updated on plan of care and expected duration. Pain level reassessed. Patient is alert, oriented x 3, equal unlabored respirations, skin warm/dry/pink. 16:10 Reassessment: Patient appears in no apparent distress at this time. Patient and/or ld1 family updated on plan of care and expected duration. Pain level reassessed. Patient is alert, oriented x 3, equal unlabored respirations, skin warm/dry/pink. 17:12 General: patient states she feels like something is wrong. notified. . tm6 Vital Signs: 10:45 BP 113 / 80; Pulse 103; Resp 33; Temp 98.6(O); Pulse Ox 99% on R/A; Weight 59.5 kg; tm6 Height 5 ft. 8 in. ; Pain 8/10; 12:23 BP 115 / 89; Pulse 103; Resp 26; Pulse Ox 98% on R/A; tm6 13:30 BP 109 / 79; Pulse 98; Pulse Ox 97% on 2 lpm NC; ld1 13:30 BP 109 / 81; Pulse 103; ld1 15:48 BP 96 / 63; Pulse 96; Resp 20; Pulse Ox 98% on 2 lpm NC; ld1 16:09 BP 116 / 102; Pulse 99; Resp 22; Pulse Ox 98% on 2 lpm NC; ld1 16:10 Pain 0/10; ld1 17:11 BP 103 / 75; Pulse 95; Resp 18; Temp 97.6(O); Pulse Ox 98% on 2 lpm NC; tm6 10:45 Body Mass Index 19.94 (59.50 kg, 172.72 cm) tm6 10:45 Pain Scale: Adult tm6 16:10 Pain Scale: Adult ld1 ED Course: 10:45 Patient arrived in ED. tm6 10:51 Triage completed. tm6 10:51 Arm band placed on right wrist. tm6 10:53 Patient has correct armband on for positive identification. Bed in low position. Call tm6 light in reach. Side rails up X2. Provided Education on: repositioning to help ease pain. Client placed on continuous cardiac and pulse oximetry monitoring. NIBP monitoring applied. court recording monitor on. Door closed. Noise minimized. Warm blanket given. 10:53 No provider procedures requiring assistance completed. Maintain EMS IV. Dressing tm6 intact. Site clean \T\ dry. Gauge \T\ site: 20g RAC. 11:02 Raoul Stratton MD is Attending Physician. amelia 11:05 Demetrius Khan RN is Primary Nurse. tm6 11:15 Inserted saline lock: 20 gauge in right forearm, using aseptic technique. Blood ld1 collected. 11:28 CT Abd/Pelvis - Without Contrast In Process Unspecified. EDMS 11:54 Urinalysis w/ reflexes Sent. ld1 12:13 CT Head Brain wo Cont In Process Unspecified. EDMS 12:34 XRAY Chest (1 view) In Process Unspecified. EDMS 12:34 Pelvis XRAY In Process Unspecified. EDMS 13:13 Fabián Forrest MD is Hospitalizing Provider. amelia 13:45 US Extremity Venous W Compression Horace In Process Unspecified. EDMS 17:48 Patient admitted, IV remains in place. ld1 Administered Medications: 13:07 Discontinued: ns 0.9% 1000 ml IV at 125 ml/hr continuous amelia 13:07 Discontinued: ns 0.9% 500 ml IV at bolus once amelia 11:20 Drug: morphine IVP or IV 4 mg IVP once over 4 mins Route: IVP; Infused Over: 4 mins; ld1 Site: right forearm; 11:20 Drug: Ondansetron IVP 4 mg IVP once; over 2 minutes Route: IVP; Site: right forearm; ld1 11:53 Drug: NS 0.9% IV 1000 ml IV at 125 ml/hr continuous Route: IV; Rate: 125 ml/hr; Site: ld1 right forearm; 11:53 Drug: NS 0.9% IV 500 ml IV at bolus once Route: IV; Rate: bolus; Site: right forearm; ld1 11:54 Drug: morphine IVP or IV 4 mg IVP once over 4 mins; Verbal order from Dr. Stratton ld1 Route: IVP; Infused Over: 4 mins; Site: right forearm; 13:31 Drug: Furosemide IVP 20 mg IVP once; give over 2 minutes Route: IVP; Site: right ld1 antecubital; Outcome: 13:14 Decision to Hospitalize by Provider. amelia 17:47 Admitted to Med/surg ld1 17:47 Condition: stable 17:47 Instructed on the need for admit, 17:48 Patient left the ED. ld1 Signatures: Dispatcher [employer] Raoul Cardenas MD MD cha Sims, Lauren RN RN ld1 Demetrius Khan RN RN tm6
[2023-04-24] MEDS ORDERED: FUROSEMIDE 20 MG/ 2ML VIAL ONE (13:37)
--- NOTE | 2023-04-24 13:51 | RAD REPORT ---
EXAM DESCRIPTION: US - Extrem Venous W Compress Horace - 04/24/2023 1:43 pm CLINICAL HISTORY: Pain;Swelling Bilateral leg edema and swelling. COMPARISON: <Comparisons> TECHNIQUE: Real-time sonographic interrogation of the left and right lower extremity deep venous sys tems was performed. FINDINGS: Normal compressibility, flow augmentation, phasic flow and spontaneous flow is identified in both the left and right lower extremity deep venous systems. IMPRESSION: No sonographic evidence of left or right lower extremity deep venous thrombosis.
[2023-04-24] MEDS ORDERED: METHYLPREDNISOLONE 40 MG INJ ONE (17:07)
[2023-04-24 18:07] VITALS: BMI 19.9
[2023-04-24] MEDS: HYDROCODONE/APAP 5/325 MG TAB PO PRN (20:26)
[2023-04-24 22:05] LABS: Thyroid Stimulating Hormone 0.833 uIU/mL (0.358-3.740); Troponin High Sensitivity 38.2 pg/mL (<58.9)
[2023-04-25] MEDS: MORPHINE 2 MG/ML SYR IV PRN ×2 (01:38→10:21)
--- NOTE | 2023-04-25 02:22 | P.HP ---
Certification for Inpatient Patient admitted to: Observation With expected LOS: <2 Midnights Patient will require the following post-hospital care: None Practitioner: I am a practitioner with admitting privileges, knowledge of patient current condition, hospital course, and medical plan of care. Services: Services provided to patient in accordance with Admission requirements found in Title 42 Section 412.3 of the Code of Federal Regulations Patient History Date of Service: 04/24/23 Reason for admission: Pain in the buttocks region/sacral wound History of Present Illness: Patient is a 77-year-old female with a longstanding history of multiple sclerosis who lives with her sister and brother at home. Her sister cares for her and helps with her day-to-day needs. Patient normally is bedbound but she is able to get onto a scooter and she gets around with a scooter. She has not ambulated in quite a while. Her multiple sclerosis has progressed, but her [facility] has not prescribed her any treatment for her multiple sclerosis. She has been on treatment in the past, but apparently it was not helping her so they stopped treating her according to the patient. She has generalized weakness and pain. She is complaining of pain in the right buttocks region. Her pain is pretty severe and it tends to involve the right buttocks region. There is no significant radiculopathy. She pretty much lays in bed or sits on her scooter which causes her significant pain lately. Patient had imaging studies which not reveal any significant abnormality. Patient will be admitted to the hospital for further evaluation. We will continue with pain control and will get neurology consultation for further evaluation patient for her MS. She will need further outpatient follow-up in 1 to 2 weeks. 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 We will go ahead and continue with Eliquis. Continue with antihypertensives and medication for her heart failure. Patient had a recent echocardiogram performed in March 2023 which revealed a severely depressed ejection fraction of 10 to 15%. Patient had global hypokinesis. Patient also with severe pulmonary hypertension with elevated right ventricular pressures greater than 60. We will continue with cardiac meds and will monitor patient's volume status. Patient will be continued with diuretics at this time. COMMENTS: 1. SEVERELY DEPRESSED LEFT VENTRICULAR EJECTION FRACTION 10-15% 2. SEVERE GLOBAL HYPOKINESIS 3. MILD TRICUSPID REGURGITATION, MITRAL REGURGITATION, AORTIC INSUFFICIENCY, PULMONIC INSUFFICIENCY 4. SMALL PERICARDIAL EFFUSION (APICAL) 5. SEVERE PULMONARY HYPERTENSION WITH RIGHT VENTRICULAR SYSTOLIC PRESURE GREATER THAN 60 mmHg. Allergies Campanillas And Derivatives Allergy (Verified 02/16/23 00:49) Itching Home Medications: Amiodarone HCl [Cordarone*] 200 mg PO DAILY 01/18/23 Apixaban [Eliquis] 5 mg PO BID 01/18/23 Atorvastatin Calcium [Lipitor*] 20 mg PO BEDTIME 01/18/23 Baclofen 10 mg PO TID 01/18/23 Duloxetine HCl 30 mg PO BID 01/18/23 Metoprolol Succinate 12.5 mg PO BID 01/18/23 Pregabalin 50 mg PO TID 01/18/23 Sacubitril/Valsartan [Entresto 24 mg-26 mg Tablet] 1 tab PO BID 01/18/23 Venlafaxine HCl [Effexor XR] 37.5 mg PO BEDTIME 01/18/23 Baclofen 30 mg PO TID 01/20/23 Hydrocodone Bit/Acetaminophen [Zebulon 10-325 Tablet] 1 tab PO Q6H PRN 01/20/23 Tramadol HCl 100 mg PO Q8H 01/20/23 Amox/Clavulanate [Augmentin 875-125 Tab*] 875 mg PO BID #10 tab 01/26/23 Ensure Enlive 237 ml PO BID #0 can 01/26/23 Furosemide [Lasix] 40 mg PO DAILY 30 Days #30 tab 02/19/23 - Past Medical/Surgical History Diabetic: No -: Lung cancer -: PE -: MS -: Hypertension -: Hyperlipidemia -: Chronic systolic congestive heart failure -: Atrial fibrillation -: Unknown Psychosocial/ Personal History: Patient currently lives at home with a family member, recently discharged from [facility]. - Family History Father Family History: Reviewed- Non-Contributory - Social History Smoking Status: Former smoker Alcohol use: No CD- Drugs: No Caffeine use: No Place of Residence: Home Review of Systems 10-point ROS is otherwise unremarkable Physical Examination - Vital Signs Temperature: 97.8 F Blood Pressure: 96/68 Pulse: 96 Respirations: 20 Pulse Ox (%): 96 - Physical Exam General: Alert, In no apparent distress, Oriented x3 HEENT: Atraumatic, PERRLA, Mucous membr. moist/pink, EOMI, Sclerae nonicteric Neck: Supple, 2+ carotid pulse no bruit, No LAD, Without JVD or thyroid abnormality Respiratory: Clear to auscultation bilaterally, Normal air movement Cardiovascular: Regular rate/rhythm, Normal S1 S2, Systolic murmur Gastrointestinal: Normal bowel sounds, Soft and benign, Non-distended, No tenderness Musculoskeletal: No tenderness Integumentary: No rashes Neurological: Normal speech, Normal tone, Sensation intact, Cranial nerves 3-12 intact, Normal affect, Abnormal gait, Abnormal strength Lymphatics: No axilla or inguinal lymphadenopathy - Studies Laboratory Data (last 24 hrs) 04/24/23 04/24/23 04/24/23 11:15 11:15 11:15 WBC 7.10 Hgb 11.3 L Hct 35.5 L Plt Count 296 PT 12.7 H INR 1.15 Sodium 140 Potassium 3.6 BUN 20 H Creatinine 0.84 Glucose 93 Magnesium 1.8 Total Bilirubin 0.7 AST 27 ALT 33 Alkaline Phosphatase 93 Assessment & Plan - Problems (Diagnosis) (1) Generalized weakness Current Visit: Yes Status: Acute (2) History of multiple sclerosis Current Visit: Yes Status: Acute (3) Heart failure with reduced ejection fraction due to cardiomyopathy Current Visit: Yes Status: Acute (4) DVT (deep venous thrombosis) Current Visit: Yes Status: Acute (5) Pulmonary embolism Current Visit: Yes Status: Acute (6) Cardiac LV ejection fraction <20% Current Visit: Yes Status: Acute (7) Sacral back pain Current Visit: Yes Status: Acute - Plan Plan: 1. Patient with generalized weakness and a history of multiple sclerosis; continue with physical therapy and we will get neurology consultation. Continue with IV steroid. Patient follows up with neurology at the [facility] and has an appointment in 4 to 6 weeks. 2. History of cardiomyopathy with ejection fraction of less than 20%; patient will need continued cardiac meds including remaining on Entresto and diuretics. Patient blood pressure is on the low side so at this time we will put parameters around the Entresto. Continue with generally diuresing with ejection fraction of less than 20%. Cardiology consultation pending. 3. History of DVT/PE; continue with anticoagulation 4. History of large right-sided pleural effusion with right hilar mass; most likely lung cancer. Prognosis is poor with patient's numerous comorbidities and her poor performance status. We will get pulmonary consultation. 5. GI and DVT prophylaxis Discharge Plan: Home Plan to discharge in: 24 Hours - Advance Directives Does patient have a Living Will: No Does patient have a Durable POA for Healthcare: No - Code Status/Comfort Care Code Status Assessed: Yes Code Status: Full Code Critical Care: No Time Spent Managing PTS Care (In Minutes): 45
[2023-04-25 03:48] LABS: Absolute Lymphocytes (CBC) 1.2 K/uL (0.7-4.9); Lymphocytes % 24.8 % (15.3-44.8); MCV 74.5 fL (80-100); MPV 8.3 fL (7.6-11.3); Platelets 285 thou/uL (152-406); RBC Red Blood Cell Count 4.43 M/uL (3.86-4.86)
[2023-04-25 04:11] LABS: Magnesium 1.7 mg/dL (1.6-2.4); Phosphorus 2.9 mg/dL (2.5-4.9); Potassium 4.3 mEq/L (3.5-5.1)
[2023-04-25] MEDS: HYDROCODONE/APAP 5/325 MG TAB PO PRN ×2 (04:54→20:57)
[2023-04-25] MEDS: METHYLPREDNISOLONE 125 MG INJ IV SCH ×2 (04:55→06:00)
[2023-04-25] MEDS: FUROSEMIDE 20 MG/ 2ML VIAL IV SCH ×2 (05:03→16:10)
[2023-04-25] MEDS ORDERED: METHYLPREDNISOLONE 125 MG INJ IV SCH (06:00)
[2023-04-25] MEDS: DULOXETINE 30 MG CAP PO SCH ×2 (09:00→20:56)
[2023-04-25] MEDS ORDERED: APIXABAN 5 MG TABLET PO SCH (09:00)
[2023-04-25] MEDS ORDERED: MAGNESIUM SULFATE 1 gm IVPB 1 GM/100 ML BAG IV ONE (09:00)
[2023-04-25] MEDS: AMIODARONE HCL 200 MG TAB PO SCH (09:00)
[2023-04-25] MEDS ORDERED: ENOXAPARIN 40 MG/0.4 ML SQ SCH (09:00)
[2023-04-25] MEDS: MIDODRINE HCL 5 MG TABLET PO SCH ×3 (09:00→20:56)
[2023-04-25] MEDS: ENSURE ENLIVE 237 ML CAN PO SCH ×2 (09:00→20:56)
--- NOTE | 2023-04-25 09:53 | P.PN ---
Subjective Date of Service: 04/25/23 Chief Complaint: Pain in the buttocks region/sacral wound Subjective: No new changes Physical Examination - Vital Signs Temperature: 97.7 F Blood Pressure: 109/68 Pulse: 95 Respirations: 18 Pulse Ox (%): 94 - Physical Exam General: Alert, Cachectic HEENT: Atraumatic Neck: Supple Respiratory: Normal air movement Cardiovascular: Regular rate/rhythm, Normal S1 S2 Gastrointestinal: Soft and benign Neurological: Normal speech - Studies Laboratory Data (last 24 hrs) 04/24/23 04/24/23 04/24/23 11:15 11:15 11:15 WBC 7.10 Hgb 11.3 L Hct 35.5 L Plt Count 296 PT 12.7 H INR 1.15 Sodium 140 Potassium 3.6 BUN 20 H Creatinine 0.84 Glucose 93 Magnesium 1.8 Total Bilirubin 0.7 AST 27 ALT 33 Alkaline Phosphatase 93 Assessment And Plan - Plan Assessment & Plan - Problems (Diagnosis) (1) Generalized weakness Current Visit: Yes Status: Acute (2) History of multiple sclerosis Current Visit: Yes Status: Acute (3) Heart failure with reduced ejection fraction due to cardiomyopathy Current Visit: Yes Status: Acute (4) DVT (deep venous thrombosis) Current Visit: Yes Status: Acute (5) Pulmonary embolism Current Visit: Yes Status: Acute (6) Cardiac LV ejection fraction <20% Current Visit: Yes Status: Acute (7) Sacral back pain Current Visit: Yes Status: Acute - Plan Plan: 1. Patient with generalized weakness and a history of multiple sclerosis; continue with physical therapy and we will get neurology consultation. Continue with IV steroid. Patient follows up with neurology at the [facility] and has an appointment in 4 to 6 weeks. 2. History of cardiomyopathy with ejection fraction of less than 20%; patient will need continued cardiac meds including remaining on Entresto and diuretics. Patient blood pressure is on the low side so at this time we will put parameters around the Entresto. Continue with generally diuresing with ejection fraction of less than 20%. Cardiology consultation pending. 3. History of DVT/PE; continue with anticoagulation 4. History of large right-sided pleural effusion with right hilar mass; most likely lung cancer. Prognosis is poor with patient's numerous comorbidities and her poor performance status. 5. GI and DVT prophylaxis. Discharge Plan: Home Plan to discharge in: 24-48 Hours. - Advance Directives Does patient have a Living Will: No Does patient have a Durable POA for Healthcare: No - Code Status/Comfort Care Code Status Assessed: Yes Code Status: Full Code time spend 30 min.
[2023-04-25] MEDS: PREGABALIN 50 MG CAP PO SCH ×3 (10:21→20:56)
[2023-04-25] MEDS: BACLOFEN 10 MG TAB PO SCH ×3 (10:23→20:56)
[2023-04-25] MEDS: METOPROLOL XL 25 MG TAB PO SCH ×2 (10:25→20:55)
[2023-04-25] MEDS: ENOXAPARIN 60 MG/0.6 ML SQ SCH ×2 (11:32→20:56)
[2023-04-25] MEDS: ARFORMOTEROL TARTRATE 15 MCG/2 ML VIAL.NEB NEB SCH ×2 (12:47→20:13)
--- NOTE | 2023-04-25 12:49 | P.CNS ---
Date of Consult: 05/02/23 Reason for Consult: Shortness of breath Chief Complaint: Pain in the buttocks region/sacral wound History of Present Illness: Patient is 77 years of age with a history of multiple sclerosis congestive heart failure history of lung cancer was admitted to the hospital complaining of worsening dyspnea recurrent hospital admissions as she is staying with her brother denies any fever or chills has severe congestive heart failure former smoker Allergies Emanuel And Derivatives Allergy (Verified 02/16/23 00:49) Itching Home Medications: Atorvastatin Calcium [Lipitor*] 20 mg PO BEDTIME 01/18/23 Baclofen 30 mg PO TID 01/18/23 Metoprolol Succinate 25 mg PO BID 01/18/23 Pregabalin 50 mg PO TID 01/18/23 Sacubitril/Valsartan [Entresto 24 mg-26 mg Tablet] 1 tab PO BID 01/18/23 Venlafaxine HCl [Effexor XR] 37.5 mg PO BEDTIME 01/18/23 Baclofen 30 mg PO TID 01/20/23 Hydrocodone Bit/Acetaminophen [[place] 10-325 Tablet] 1 tab PO Q6H PRN 01/20/23 Tramadol HCl 100 mg PO Q8H 01/20/23 Ensure Enlive 237 ml PO BID #0 can 01/26/23 Furosemide [Lasix] 40 mg PO DAILY 30 Days #30 tab 02/19/23 Enoxaparin Sodium [Lovenox 80 MG INJ*] 80 mg SQ BID 04/25/23 Gefitinib 250 mg PO DAILY 04/25/23 carBAMazepine [Carbamazepine] 100 mg PO BID 04/25/23 - Past Medical/Surgical History Diabetic: No -: Lung cancer -: PE -: MS -: Hypertension -: Hyperlipidemia -: Chronic systolic congestive heart failure -: Atrial fibrillation -: Unknown Psychosocial/ Personal History: Patient currently lives at home with a family member, recently discharged from [facility]. - Family History Father Family History: Reviewed- Non-Contributory - Social History Smoking Status: Unknown if ever smoked Alcohol use: No CD- Drugs: No Caffeine use: No Place of Residence: Home Review of Systems General: Weakness Respiratory: Shortness of Breath Cardiovascular: Edema Physical Examination Temp Pulse Resp BP Pulse Ox 97.7 F 95 H 18 109/68 94 04/25/23 09:53 04/25/23 09:53 04/25/23 09:53 04/25/23 09:53 04/25/23 09:53 General: Alert, In no apparent distress, Oriented x3 Neck: Supple Respiratory: Normal air movement, Diminished Cardiovascular: Regular rate/rhythm, Normal S1 S2, Edema Gastrointestinal: Normal bowel sounds, Soft and benign - Problems (1) Shortness of breath Current Visit: Yes Status: Acute Plan: Patient is 77 years of age recurrent hospitalizations has history of multiple sclerosis CHF lung cancer. With worsening dyspnea may have underlying obstructive airways disease in addition to her CHF continue with diuretics and has a history of thromboembolism continue with anticoagulation trial of steroids patient is on IV Lasix CT scan shows a right-sided basilar effusion which is chronic and a right lung mass vital signs oxygenation satisfactory
[2023-04-25] MEDS: predniSONE 20 MG TAB PO SCH ×2 (16:10→20:56)
[2023-04-25] MEDS ORDERED: FUROSEMIDE 40 MG/4 ML VIAL IV ONE ×2 (18:23→20:00)
[2023-04-25] MEDS ORDERED: ENOXAPARIN 80 MG/0.8 ML SQ SCH (21:00)
[2023-04-26 07:26] LABS: Potassium 4.4 mEq/L (3.5-5.1)
[2023-04-26 07:34] LABS: Hematocrit 33.5 % (36.0-45.0); MCV 74.8 fL (80-100); Platelets 268 thou/uL (152-406); RBC Red Blood Cell Count 4.47 M/uL (3.86-4.86)
[2023-04-26] MEDS: ARFORMOTEROL TARTRATE 15 MCG/2 ML VIAL.NEB NEB SCH ×3 (07:54→19:00)
[2023-04-26 08:58] LABS: Anisocytosis 1+; Blood Morphology Comment NOTED (NOT SEEN); Platelet Estimate ADEQ; Target Cells 1+
[2023-04-26] MEDS: ENSURE ENLIVE 237 ML CAN PO SCH ×2 (09:00→20:59)
[2023-04-26] MEDS: predniSONE 20 MG TAB PO SCH ×2 (09:18→21:00)
[2023-04-26] MEDS: ENOXAPARIN 60 MG/0.6 ML SQ SCH ×2 (09:18→21:01)
[2023-04-26] MEDS: MIDODRINE HCL 5 MG TABLET PO SCH ×3 (09:18→21:01)
[2023-04-26] MEDS: DULOXETINE 30 MG CAP PO SCH ×2 (09:19→21:00)
[2023-04-26] MEDS: AMIODARONE HCL 200 MG TAB PO SCH (09:19)
[2023-04-26] MEDS: FUROSEMIDE 20 MG/ 2ML VIAL IV SCH ×2 (09:19→17:15)
[2023-04-26] MEDS: BACLOFEN 10 MG TAB PO SCH ×3 (09:19→21:00)
[2023-04-26] MEDS: METOPROLOL XL 25 MG TAB PO SCH ×2 (09:19→21:00)
[2023-04-26] MEDS: PREGABALIN 50 MG CAP PO SCH ×3 (09:19→21:00)
[2023-04-26] MEDS: HYDROCODONE/APAP 5/325 MG TAB PO PRN ×2 (09:19→20:59)
--- NOTE | 2023-04-26 14:06 | P.DS ---
Admission Date: 04/24/23 Discharge Date: 04/26/23 Disposition: ROUTINE DISCHARGE Discharge Condition: GOOD Reason for Admission: Pain in the buttocks region/sacral wound Brief History of Present Illness: Patient is a 77-year-old female with a longstanding history of multiple sclerosis who lives with her sister and brother at home. Her sister cares for her and helps with her day-to-day needs. Patient normally is bedbound but she i s able to get onto a scooter and she gets around with a scooter. She has not ambulated in quite a while. Her multiple sclerosis has progressed, but [facility] not [facility] her any treatment for her multiple sclerosis. She has been on treatment in the past, but apparently it was not helping her so they stopped treating her according to the patient. She has generalized weakness and pain. She is complaining of pain in the right buttocks region. Her pain is pretty severe and it tends to involve the right buttocks region. There is no significant radiculopathy. She pretty much lays in bed or sits on her scooter which causes her significant pain lately. Patient had imaging studies which not reveal any significant abnormality. Patient will be admitted to the hospital for further evaluation. We will continue with pain control and will get neurology consultation for further evaluation patient for her MS. She will need further outpatient follow-up in 1 to 2 weeks. 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 We will go ahead and continue with Eliquis. Continue with antihypertensives and medication for her heart failure. Patient had a recent echocardiogram performed in March 2023 which revealed a severely depressed ejection fraction of 10 to 15%. Patient had global hypokinesis. Patient also with severe pulmonary hypertension with elevated right ventricular pressures greater than 60. We will continue with cardiac meds and will monitor patient's volume status. Patient will be continued with diuretics at this time. Hospital Course: She was evaluated for any major abnormalities there was no major significant finding except for some pulmonary edema which responded to diuretic therapy. her wounds which were initially thought to be probably an issue was found to be superficial and no acute issue. No overt evidence of sepsis noted. She is to continue oral diuretic dose, Lovenox for DVT management and also supplemental oxygen. She will follow-up with primary physician and museum assistant as needed. Vital Signs/Physical Exam: Temp Pulse Resp BP Pulse Ox 97.7 F 95 H 16 104/74 95 04/26/23 08:00 04/26/23 08:00 04/26/23 09:19 04/26/23 08:00 04/26/23 09:19 General: Alert, Cachectic HEENT: Atraumatic Neck: Supple Respiratory: Normal air movement Cardiovascular: Regular rate/rhythm, Normal S1 S2 Gastrointestinal: Soft and benign Musculoskeletal: No swelling Neurological: Normal speech Laboratory Data at Discharge: WBC 7.90 thou/uL (4.3-10.9) 04/26/23 06:46 Hgb 10.3 g/dL (12.0-15.0) L 04/26/23 06:46 Hct 33.5 % (36.0-45.0) L 04/26/23 06:46 Plt Count 268 thou/uL (152-406) 04/26/23 06:46 PT 12.7 SECONDS (9.5-12.5) H 04/24/23 11:15 INR 1.15 04/24/23 11:15 Sodium 137 mEq/L (136-145) 04/26/23 06:46 Potassium 4.4 mEq/L (3.5-5.1) 04/26/23 06:46 BUN 33 mg/dL (7-18) H 04/26/23 06:46 Creatinine 1.01 mg/dL (0.55-1.02) 04/26/23 06:46 Glucose 118 mg/dL (74-106) H 04/26/23 06:46 Phosphorus 3.0 mg/dL (2.5-4.9) 04/26/23 06:46 Magnesium 2.0 mg/dL (1.6-2.4) 04/26/23 06:46 Total Bilirubin 0.7 mg/dL (0.2-1.0) 04/24/23 11:15 AST 27 U/L (15-37) 04/24/23 11:15 ALT 33 U/L (13-56) 04/24/23 11:15 Alkaline Phosphatase 93 U/L (45-117) 04/24/23 11:15 Home Medications: Atorvastatin Calcium [Lipitor*] 20 mg PO BEDTIME 01/18/23 Baclofen 30 mg PO TID 01/18/23 Metoprolol Succinate 25 mg PO BID 01/18/23 Pregabalin 50 mg PO TID 01/18/23 Sacubitril/Valsartan [Entresto 24 mg-26 mg Tablet] 1 tab PO BID 01/18/23 Venlafaxine HCl [Effexor XR] 37.5 mg PO BEDTIME 01/18/23 Baclofen 30 mg PO TID 01/20/23 Hydrocodone Bit/Acetaminophen [Bartelso 10-325 Tablet] 1 tab PO Q6H PRN 01/20/23 Tramadol HCl 100 mg PO Q8H 01/20/23 Ensure Enlive 237 ml PO BID #0 can 01/26/23 Furosemide [Lasix] 40 mg PO DAILY 30 Days #30 tab 02/19/23 Enoxaparin Sodium [Lovenox 80 MG INJ*] 80 mg SQ BID 04/25/23 Gefitinib 250 mg PO DAILY 04/25/23 carBAMazepine [Carbamazepine] 100 mg PO BID 04/25/23 Diet: AHA Followup: NONE,NONE [Primary Care Provider] -
[2023-04-27 07:37] LABS: Hematocrit 33.4 % (36.0-45.0); MPV 8.3 fL (7.6-11.3); Platelets 289 thou/uL (152-406); RBC Red Blood Cell Count 4.52 M/uL (3.86-4.86)
[2023-04-27 07:51] LABS: Magnesium 2.2 mg/dL (1.6-2.4); Phosphorus 3.8 mg/dL (2.5-4.9); Potassium 4.4 mEq/L (3.5-5.1)
[2023-04-27] MEDS: ARFORMOTEROL TARTRATE 15 MCG/2 ML VIAL.NEB NEB SCH (08:17)
[2023-04-27 08:34] LABS: Anisocytosis 1+; Blood Morphology Comment NOTED (NOT SEEN); Platelet Estimate ADEQ; Target Cells 1+
[2023-04-27] MEDS: HYDROCODONE/APAP 5/325 MG TAB PO PRN (08:49)
[2023-04-27] MEDS: ENSURE ENLIVE 237 ML CAN PO SCH (09:00)
[2023-04-27] MEDS: ENOXAPARIN 60 MG/0.6 ML SQ SCH (09:00)
[2023-04-27] MEDS: METOPROLOL XL 25 MG TAB PO SCH (09:00)
[2023-04-27 09:06] VITALS: O2SAT 100
[2023-04-27] MEDS: DULOXETINE 30 MG CAP PO SCH (11:29)
[2023-04-27] MEDS: AMIODARONE HCL 200 MG TAB PO SCH (11:29)
[2023-04-27] MEDS: PREGABALIN 50 MG CAP PO SCH (11:29)
[2023-04-27] MEDS: BACLOFEN 10 MG TAB PO SCH (11:29)
[2023-04-27] MEDS: MIDODRINE HCL 5 MG TABLET PO SCH (11:29)
[2023-04-27] MEDS: FUROSEMIDE 20 MG/ 2ML VIAL IV SCH (11:29)
[2023-04-27] MEDS: predniSONE 20 MG TAB PO SCH (11:31)
[2023-04-27 15:14] VITALS: BP 93/69; TEMP 97.2
--- NOTE | 2023-04-27 17:02 | EKG ---
Test Date: 2023-04-24 Test Time: 11:47:16 License Distributor: Yuko COWAN MEASUREMENT RESULTS: Intervals: Rate: 103 NJ: 152 QRSD: 88 QT: 364 QTc: 476 [place]: P: 58 NJ: 152 QRS: 96 T: -14 INTERPRETIVE STATEMENTS: Sinus tachycardia Rightward axis Septal infarct, age undetermined ST & T wave abnormality, consider lateral ischemia Abnormal ECG Compared to ECG 02/15/2023 20:11:27 Right-axis deviation now present Myocardial infarct finding now present Sinus rhythm no longer present Left ventricular hypertrophy no longer present ST (T wave) deviation still present Possible ischemia still present Electronically Signed On 04-27-23 16:54:03 REGISTERED ACCOUNT ADMINISTRATOR by Rd Del Angel
[2023-04-28] MEDS ORDERED: FUROSEMIDE 40 MG/4 ML VIAL IV SCH (09:00)
== END 2023-04-27 15:00 | disposition home or self-care (01) ==
LOC: ER 10:41 → ERHOLD 15:14 → 4TH 16:23
PROVIDERS: ADMIT Internal Medicine Nephrology; ATTEND Internal Medicine Nephrology
DX: L89.301 Pressure ulcer of unspecified buttock, stage 1 (principal); R53.1 Weakness; M54.50 Low back pain, unspecified; G35 Multiple sclerosis; I50.40 Unspecified combined systolic (congestive) and diastolic (congestive) heart failure; I42.9 Cardiomyopathy, unspecified; I26.99 Other pulmonary embolism without acute cor pulmonale; I27.20 Pulmonary hypertension, unspecified; I50.1 Left ventricular failure, unspecified; R06.00 Dyspnea, unspecified; R60.9 Edema, unspecified; Z86.718 Personal history of other venous thrombosis and embolism; Z79.01 Long term (current) use of anticoagulants; Z85.118 Personal history of other malignant neoplasm of bronchus and lung; Z87.891 Personal history of nicotine dependence
CPT/HCPCS: 93005; 85025 ×4; 81001; 80048 ×4; 36415 ×4; 83735 ×4; 84100 ×3; 85610; 80076; 84443; 84484 ×3; 84439; 83880; 70450; 74176; 71045; 72170; 93970; 97110; 97161; 94640; 99285; J7512 ×5; J3475; J1650 ×4; J1940 ×7; J2270 ×2; J7605 ×5; J2930 ×2; J2405; J7040; J7030; J2920; G0378